=== PATIENT | female | born 1950 | race Caucasian/White ===

== ENCOUNTER 2016-11-23 12:35 | Emergency (ER) | payer OTHER ==
[~2016-11-23] VITALS: Ht 167.6 cm; Wt 120.0 kg
[~2016-11-23 12:35] MED LIST: ALBUAER2 INH; AMIT-203 PO; CITA40TA12 PO; CYCL10TA6 PO; DOCU-94 PO; DSY100 PO; FRS/40 PO; LORA-741 PO; LSN/10125 PO; MONT1TAB3 PO; OXYC-57 PO; PANT40TA PO; POLY335025 PO; PREG100C PO; SENN-61 PO; VTMD PO; ZCR40 PO
[2016-11-23 12:43] VITALS: BP 156/79; PULSE 73; TEMP 36.5; O2SAT 95; Ht 167.6 cm; Wt 120.0 kg
[2016-11-23] MEDS ORDERED: ERGO500037 PO (13:01)
[2016-11-23] MEDS ORDERED: TRAZ50TA35 PO (13:01)
[2016-11-23] MEDS ORDERED: VNTHFA/IN INH (13:01)
--- NOTE | 2016-11-23 14:37 | DIAGNOSTIC IMAGING REPORT ---
LEFT FEMUR 3 VIEWS CLINICAL HISTORY: Left thigh pain of several days' duration. FINDINGS: AP, frog-leg, and lateral views of left femur are correlated with pelvic radiograph dated 12/21/2015. The skeletal structures are osteopenic. There is no radiographic evidence of left femoral fracture. Only minimal arthritic change is seen in the left hip. The visualized left hemipelvis appears intact. A left knee arthroplasty is partially imaged. The soft tissues of the thigh are within normal limits. There is mild atherosclerotic calcification of the femoral artery. IMPRESSION: 1. No acute bony abnormality is seen in the left femur. 2. A left knee arthroplasty is in place. Electronically signed by: Adiel Brantley M.D. 11/23/2016 2:36 PM Dictated Date/Time: 11/23/2016 2:35 PM
--- NOTE | 2016-11-23 14:40 | DIAGNOSTIC IMAGING REPORT ---
ULTRASOUND LEFT LOWER EXTREMITY VENOUS CLINICAL HISTORY: Left thigh pain. COMPARISON STUDY: Bilateral lower extremity venous ultrasound dated 12/20/2015. TECHNIQUE: Real-time, grayscale, and color Doppler sonography of the deep veins of the left lower extremity was performed from the inguinal crease to the calf. Compression and augmentation were utilized. FINDINGS: There is no sonographic evidence of deep venous thrombosis identified in the left lower extremity. The common femoral, superficial femoral, and popliteal veins are patent and normally compressible. The greater saphenous vein and the profunda femoris vein at the junction with the common femoral vein are clear. The visualized calf veins are patent. IMPRESSION: There is no sonographic evidence of deep venous thrombosis identified in the left lower extremity. Electronically signed by: Adiel Brantley M.D. 11/23/2016 2:39 PM Dictated Date/Time: 11/23/2016 2:39 PM
--- NOTE | 2016-11-23 15:17 | EMERGENCY ROOM VISIT NOTE ---
ED Visit Note First contact with patient: 13:22 CHIEF COMPLAINT: Left thigh pain 5 days HISTORY OF PRESENT ILLNESS: Patient is a 58-year-old white female who presents emergency department accompanied by family for evaluation of pain in the anterior left thigh that has been present for about 5 days. She notes pain only with weightbearing. It is located in the anterior left thigh. It does not radiate. She states that occasionally the area looks like it is swollen and is warm to the touch. She denies any increased redness. She states that her leg feels "heavy." She has tried taking Tylenol for her symptoms. She presently rates her pain a 9/10. They have an appointment with her PCP for tomorrow, but the pain worsened today prompting them to come to the emergency department. She is status post bilateral total knee arthroplasty and right total hip arthroplasty. She also has a history of radicular low back pain and peripheral neuropathy. She denies any falls or trauma to the area. She denies any calf pain or swelling bilaterally. No fever or chills. She denies any chest pain. She is chronically short of breath due to her COPD, and states that this improved with use of her inhaler this morning. She's never had symptoms similar to this previously. She does not have a prior history of DVT, does have a history of a PE in 2015 that was attributed to dehydration and prolonged immobilization due to intractable back pain. She was anticoagulated for roughly 6 months, then it was discontinued. She was not found to have an underlying hypercoagulable state. REVIEW OF SYSTEMS: Review of systems as per HPI. All other systems reviewed were negative. 10 systems reviewed. PMH: Electronic medical records are reviewed and summarized as above/below. See Problem List. SOCIAL HISTORY: Patient lives at home by herself. She does not smoke. PHYSICAL EXAM: Vital Signs: Reviewed Nurse's notes. CONSTITUTIONAL: Patient is a morbidly obese 58-year-old white female who is awake and alert and in no acute distress laying on a gurney. HEART: Regular rate and rhythm with soft systolic ejection murmur noted. LUNGS: Slightly diminished throughout, with a few end expiratory wheezes noted. EXTREMITIES: Examination of the left lower extremity does not demonstrate any significant erythema, cyanosis or pitting edema. The area in question in the anterior left thigh does not demonstrate any swelling, discoloration, increased warmth or induration. She is nontender to palpation. She has some slight discomfort over the greater trochanters bilaterally. Well-healed anterior knee scars are noted bilaterally, without knee tenderness, and full knee range of motion. Logroll is negative. Straight leg raise elicits some low back discomfort, but no radicular symptoms. Distal pulses are easily palpable. Sensation to light touch is intact. There are no palpable cords noted. The calves are soft and nontender bilaterally. EMERGENCY DEPARTMENT COURSE: The patient was seen and evaluated as above. Her old records are reviewed. She presents the emergency department for evaluation of isolated pain in the anterior left thigh with weightbearing over the last 5 days. Ultrasound of the left lower extremity was obtained and was negative for DVT. X-ray of the left femur did not demonstrate any acute bony abnormality. Differential diagnosis includes muscle strain, tendinitis, referred pain from the hip or back, DVT, fracture, hardware compromise, superficial thrombophlebitis cellulitis, peripheral neuropathy, among others. The patient and her family were reassured. They were encouraged to follow-up with the PCP as they have scheduled tomorrow. Medication reconciliation: I attest that I have personally reviewed the patient' s current medication list. Blood pressure screening: Patient was found to have a slightly elevated blood pressure due to circumstances. She also has a history of hypertension and is treated. LEFT FEMUR 3 VIEWS CLINICAL HISTORY: Left thigh pain of several days' duration. FINDINGS: AP, frog-leg, and lateral views of left femur are correlated with pelvic radiograph dated 12/21/2015. The skeletal structures are osteopenic. There is no radiographic evidence of left femoral fracture. Only minimal arthritic change is seen in the left hip. The visualized left hemipelvis appears intact. A left knee arthroplasty is partially imaged. The soft tissues of the thigh are within normal limits. There is mild atherosclerotic calcification of the femoral artery. IMPRESSION: 1. No acute bony abnormality is seen in the left femur. 2. A left knee arthroplasty is in place. ULTRASOUND LEFT LOWER EXTREMITY VENOUS CLINICAL HISTORY: Left thigh pain. COMPARISON STUDY: Bilateral lower extremity venous ultrasound dated 12/20/2015. TECHNIQUE: Real-time, grayscale, and color Doppler sonography of the deep veins of the left lower extremity was performed from the inguinal crease to the calf. Compression and augmentation were utilized. FINDINGS: There is no sonographic evidence of deep venous thrombosis identified in the left lower extremity. The common femoral, superficial femoral, and popliteal veins are patent and normally compressible. The greater saphenous vein and the profunda femoris vein at the junction with the common femoral vein are clear. The visualized calf veins are patent. IMPRESSION: There is no sonographic evidence of deep venous thrombosis identified in the left lower extremity. Problem List Medical Problems: (1) Anxiety Status: Chronic (2) Complaints of total body pain Status: Resolved (3) COPD (chronic obstructive pulmonary disease) Status: Chronic (4) Depression Status: Chronic (5) Dyslipidemia Status: Chronic (6) Elevated troponin Status: Resolved (7) GERD (gastroesophageal reflux disease) Status: Chronic (8) Hypertension Nos Status: Chronic (9) Left shoulder pain Status: Resolved (10) Nausea Status: Resolved (11) Neuropathy Status: Chronic (12) Pulmonary embolism Status: Resolved (13) Shortness of breath Status: Resolved (14) Small bowel obstruction Status: Resolved Surgical Problems: (1) H/O tubal ligation Status: Resolved (2) H/O: hysterectomy Status: Resolved (3) Hip Joint Replacement Status Status: Resolved (4) Hx of cholecystectomy Status: Resolved (5) Knee Joint Replacement Status Status: Resolved Current/Historical Medications Scheduled Albuterol Hfa (Ventolin Hfa), 1-2 PUFFS INH Q4 Amitriptyline HCl (Elavil), 1 TAB PO HS Citalopram Hydrobromide (Celexa), 40 MG PO DAILY Docusate Sodium (Colace), 100 MG PO BID Ergocalciferol (Vitamin D 56902 Unit), 50,000 UNIT PO WK Furosemide (Lasix), 40 MG PO DAILY Hctz/Lisinopril (Lisinopril/Hctz 10/12.5 Mg), 1 TAB PO QAM Lorazepam (Ativan), 1 TAB PO TID Montelukast Sodium (Singulair), 1 TAB PO DAILY Pantoprazole (Protonix), 40 MG PO DAILY Pregabalin (Lyrica), 100 MG PO TID Senna (Senokot), 1 TAB PO BID Simvastatin (Simvastatin), 40 MG PO HS Trazodone Hcl (Trazodone), 50 MG PO HS Scheduled PRN Polyethylene Glycol 3350 (Miralax), 17 GM PO DAILY PRN for Constipation Allergies Coded Allergies: Uncoded Nonscreenable Allergen (Verified Allergy, Unknown, requests no narcotics, 11/23/16) Vital Signs Date Time Temp Pulse Resp B/P (MAP) Pulse Ox O2 Delivery O2 Flow Rate FiO2 11/23/16 12:43 36.5 73 20 156/79 95 Room Air Departure Information Impression Primary Impression: Left thigh pain Referrals Rowena Garcia M.D. (PCP) Patient Instructions My [facility] Additional Instructions Ibuprofen(Motrin, Advil) may be used for fever or pain. Use 600mg every six hours as needed. Take with food. Avoid using more than 2400mg in a 24 hour period. Do not use 2400mg per day for more than three consecutive days without physician direction. Prolonged inappropriate use can lead to stomach upset or ulcers. This medication can be taken if you need to drive, work, or perform activities which may be dangerous when taking narcotic pain medication. (AND/OR) Acetaminophen(Tylenol) may be used for fever or pain. Use 1000mg every six hours as needed. Avoid using more than 3000mg in a 24 hour period. This medication can be taken if you need to drive, work, or perform activities which may be dangerous when taking narcotic pain medication. Warm compresses for 20 minutes at a time four times daily for 2-3 days. Use a cane or walker as needed for ambulation. Rest and elevate your injury. Continue current medications. Return to the ER immediately for any numbness, tingling, severe pain, extreme swelling in the extremity or as needed. Follow-up with your primary care physician as you have scheduled tomorrow.
== END 2016-11-23 15:20 | disposition home or self-care (01) ==
LOC: C.EDB 12:36 → C.EDD 15:20
DX: M79.652 Pain in left thigh (principal); J44.9 Chronic obstructive pulmonary disease, unspecified; I10 Essential (primary) hypertension; E78.5 Hyperlipidemia, unspecified; F41.9 Anxiety disorder, unspecified; F32.9 Major depressive disorder, single episode, unspecified; G62.9 Polyneuropathy, unspecified; Z86.711 Personal history of pulmonary embolism; Z98.51 Tubal ligation status; Z90.710 Acquired absence of both cervix and uterus; Z90.49 Acquired absence of other specified parts of digestive tract; Z96.641 Presence of right artificial hip joint; Z96.653 Presence of artificial knee joint, bilateral; Z79.899 Other long term (current) drug therapy

== ENCOUNTER 2016-12-18 12:54 | Emergency (ER) | payer OTHER ==
[~2016-12-18] VITALS: Ht 167.6 cm; Wt 119.2 kg
[~2016-12-18 12:54] MED LIST changes: -ALBUAER2 INH; -CYCL10TA6 PO; -DSY100 PO; +ERGO500037 PO; -OXYC-57 PO; +TRAZ50TA35 PO; +VNTHFA/IN INH; -VTMD PO
[2016-12-18 13:00] VITALS: TEMP 36.6; Ht 167.6 cm; Wt 119.2 kg
[2016-12-18] MEDS ORDERED: FLX/5 PO (13:22)
[2016-12-18] MEDS ORDERED: KETOROLAC TROMETHAMINE 60 MG/2 ML VIAL IM STA (13:25)
--- NOTE | 2016-12-18 16:50 | DIAGNOSTIC IMAGING REPORT ---
CT OF THE LEFT HIP AND THIGH WITHOUT CONTRAST CLINICAL HISTORY: Worsening left thigh and hip pain. History of bursitis. COMPARISON STUDY: Left femur radiographs November 23, 2016. TECHNIQUE: Axial images of the left hip and femur/thigh were obtained without IV contrast. Sagittal and coronal reconstructions were viewed. FINDINGS: Visualized portions of the lower abdomen and pelvis demonstrate extensive sigmoid diverticulosis without evidence for acute diverticulitis. A right hip arthroplasty and left knee arthroplasty are noted. Alignment of the left hip is anatomic. There is no evidence for avascular necrosis of the left femoral head. There is marked atrophy of portions of the left quadriceps muscle. No mass or fluid collection is identified within the left thigh. No fracture or osseous lesion is identified within the left femur. No significant osseous abnormality is identified within visualized portions of the pelvis. There is mild osteoarthritis of the left hip. IMPRESSION: 1. No acute abnormality within the left hip or thigh by CT. 2. No left femoral fracture. 3. Status post total left knee arthroplasty. No periprosthetic fracture or lucency. 4. Moderate to marked atrophy within portions of the left quadriceps muscle. Electronically signed by: Allen Pham M.D. 12/18/2016 4:49 PM Dictated Date/Time: 12/18/2016 4:43 PM
--- NOTE | 2016-12-18 17:09 | EMERGENCY ROOM VISIT NOTE ---
ED Visit Note First contact with patient: 13:12 The patient was seen and examined with Chrissy Salas PA-C. I agree with the history, physical and findings. Please see the note for disposition and details.
[2016-12-18] MEDS ORDERED: DICL75TA2 PO (17:12)
--- NOTE | 2016-12-18 17:12 | EMERGENCY ROOM VISIT NOTE ---
History First contact with patient: 13:12 Chief Complaint: HIP PAIN Stated Complaint: HIP PAIN History of Present Illness The patient is a 66 year old female who presents to the Emergency Room with complaints of persistent and worsening left hip and thigh pain. The patient states that her pain started one month ago. She denies any known injury. She states the pain is worse with ambulation. The patient was seen here initially on December 03 for the same symptoms. She had x-rays done of the left hip which revealed minimal arthritis any venous Doppler which did not reveal any evidence of DVT. She states she then went to Dr. Brock, orthopedics who injected her hip with steroids and she was told she had bursitis. This was on December 09. The patient states she got no relief and then she went to her family doctor, Dr. Zhong on December 14. She states that she prescribed her muscle relaxers but that is not helping. She is taking Tylenol at home without any relief. The patient states that she also had x-rays of her back. She denies any numbness and tingling radiating down her legs. The patient denies a loss of bowel or bladder control. The patient denies any saddle anesthesia. Review of Systems 10 system review was performed and was negative unless stated otherwise history of present illness. Past Medical/Surgical History Medical Problems: (1) Anxiety (2) Complaints of total body pain (3) COPD (chronic obstructive pulmonary disease) (4) Depression (5) Dyslipidemia (6) Elevated troponin (7) GERD (gastroesophageal reflux disease) (8) Hypertension Nos (9) Left shoulder pain (10) Nausea (11) Neuropathy (12) Pulmonary embolism (13) Shortness of breath (14) Small bowel obstruction Surgical Problems: (1) H/O tubal ligation (2) H/O: hysterectomy (3) Hip Joint Replacement Status (4) Hx of cholecystectomy (5) Knee Joint Replacement Status Family History FH: cancer Social History Smoking Status: Former Smoker Alcohol Use: none Drug Use: none Marital Status: single Housing Status: lives alone Occupation Status: unemployed Current/Historical Medications Scheduled Albuterol Hfa (Ventolin Hfa), 1-2 PUFFS INH Q4 Amitriptyline HCl (Elavil), 1 TAB PO HS Citalopram Hydrobromide (Celexa), 40 MG PO DAILY Cyclobenzaprine HCl (Cyclobenzaprine HCl), 5 MG PO BID Docusate Sodium (Colace), 100 MG PO BID Ergocalciferol (Vitamin D 77199 Unit), 50,000 UNIT PO WK Furosemide (Lasix), 40 MG PO DAILY Hctz/Lisinopril (Lisinopril/Hctz 10/12.5 Mg), 1 TAB PO QAM Lorazepam (Ativan), 1 TAB PO TID Montelukast Sodium (Singulair), 1 TAB PO DAILY Pantoprazole (Protonix), 40 MG PO DAILY Pregabalin (Lyrica), 100 MG PO TID Senna (Senokot), 1 TAB PO BID Simvastatin (Simvastatin), 40 MG PO HS Trazodone Hcl (Trazodone), 50 MG PO HS Scheduled PRN Polyethylene Glycol 3350 (Miralax), 17 GM PO DAILY PRN for Constipation Physical Exam Vital Signs Date Time Temp Pulse Resp B/P (MAP) Pulse Ox O2 Delivery O2 Flow Rate FiO2 12/18/16 14:44 63 10 96 12/18/16 14:39 65 14 95 12/18/16 14:34 62 16 95 12/18/16 14:31 147/72 12/18/16 14:29 61 10 97 12/18/16 14:24 60 12 99 12/18/16 14:19 62 12 96 12/18/16 14:14 61 11 97 12/18/16 14:09 60 10 98 12/18/16 14:04 59 9 98 12/18/16 14:01 169/72 12/18/16 13:59 59 7 98 12/18/16 13:54 61 10 97 12/18/16 13:49 65 11 98 12/18/16 13:44 65 12 97 12/18/16 13:39 63 10 98 12/18/16 13:34 63 12 98 12/18/16 13:31 179/78 12/18/16 13:29 66 10 98 12/18/16 13:24 64 13 96 12/18/16 13:19 67 15 98 12/18/16 13:14 63 12 97 12/18/16 13:11 66 12/18/16 13:09 71 16 95 12/18/16 13:01 186/75 12/18/16 13:00 36.6 64 18 186/75 98 Room Air Physical Exam GENERAL: 66 year-old obese white female appears in no acute distress. MENTAL Status: Alert and oriented 3. LUNGS: Clear auscultation without wheezes rales or rhonchi. CARDIAC: Regular rate and rhythm without murmur. Pulses is full and equal throughout. LUMBAR SPINE: No gross bony deformity noted. The patient is nontender to palpation over the spinous processes in the paravertebral region. LEFT HIP/THIGH: No gross bony deformity noted. No erythema or edema noted. The patient is tender to palpation over the greater trochanter and slightly inferior to the greater trochanter. The patient has full range of motion of the left hip with pain elicited with abduction and abduction. NEURO: Negative straight leg raise bilaterally. Medical Decision & Procedures ER Provider Diagnostic Interpretation: CT OF THE LEFT HIP AND THIGH WITHOUT CONTRAST CLINICAL HISTORY: Worsening left thigh and hip pain. History of bursitis. COMPARISON STUDY: Left femur radiographs November 23, 2016. TECHNIQUE: Axial images of the left hip and femur/thigh were obtained without IV contrast. Sagittal and coronal reconstructions were viewed. FINDINGS: Visualized portions of the lower abdomen and pelvis demonstrate extensive sigmoid diverticulosis without evidence for acute diverticulitis. A right hip arthroplasty and left knee arthroplasty are noted. Alignment of the left hip is anatomic. There is no evidence for avascular necrosis of the left femoral head. There is marked atrophy of portions of the left quadriceps muscle. No mass or fluid collection is identified within the left thigh. No fracture or osseous lesion is identified within the left femur. No significant osseous abnormality is identified within visualized portions of the pelvis. There is mild osteoarthritis of the left hip. IMPRESSION: 1. No acute abnormality within the left hip or thigh by CT. 2. No left femoral fracture. 3. Status post total left knee arthroplasty. No periprosthetic fracture or lucency. 4. Moderate to marked atrophy within portions of the left quadriceps muscle. Electronically signed by: Allen Pham M.D. 12/18/2016 4:49 PM Dictated Date/Time: 12/18/2016 4:43 PM Medications Administered Medications (Trade) Dose Ordered Sig/Isak Route Start Time Stop Time Status Last Admin Dose Admin Ketorolac Tromethamine (Toradol Inj) 60 mg NOW STAT IM 12/18/16 13:25 12/18/16 13:27 DC 12/18/16 13:50 60 MG ED Course The patient was evaluated. The patient's EMR medication list were reviewed. The patient was given Toradol [address] of the left hip and thigh was ordered and interpreted by the radiologist as above without any acute bony abnormality noted but there was moderate atrophy of the foot or sepsis tendon.. The patient is also on a no narcotic list in the emergency room. The patient also stated that she had a problem with opioids in the past and does not want any opioids. The patient was informed of the CT findings. She was reevaluated and stated that she was feeling better. I discussed in great length with the patient about her CT findings that she needs to most likely start physical therapy. At that point her son stated that she already has a prescription to start physical therapy but she has not gone yet. The patient was independently evaluated byDr. Raza who agrees with treatment plan. The patient was discharged home in stable condition. Medical Decision Differential diagnosis include bursitis, fracture, muscular strain Impression Primary Impression: Atrophy of quadriceps femoris muscle Additional Impression: Hip pain, left Departure Information Dispostion Home / Self-Care Condition GOOD Prescriptions Diclofenac Sodium (VOLTAREN) 75 Mg Tab 75 MG PO BID for 10 Days, #20 TAB Prov: Bhakti Salas PA-C 12/18/16 Referrals Rowena Garcia M.D. (PCP) Forms HOME CARE DOCUMENTATION FORM, IMPORTANT VISIT INFORMATION, WORK / SCHOOL INSTRUCTIONS Patient Instructions My [facility] Additional Instructions Take Voltaren as prescribed with food. Do not take any additional ibuprofen, Aleve. Call Dr. Brock on Tuesday to let him know that you had a CAT scan done in the ER today and to cancel the CAT scan at [facility] on Tuesday. Also get a follow-up appointment as soon as possible for reevaluation. Also recommend start physical therapy as soon as possible. Continue using walker for ambulation. Problem Qualifiers
[2016-12-18 17:59] VITALS: BP 132/88; PULSE 72; O2SAT 98
== END 2016-12-18 17:45 | disposition home or self-care (01) ==
LOC: EDBD 12:54 → C.EDB 12:55
DX: M62.552 Muscle wasting and atrophy, not elsewhere classified, left thigh (principal); M25.552 Pain in left hip; F41.9 Anxiety disorder, unspecified; J44.9 Chronic obstructive pulmonary disease, unspecified; F32.9 Major depressive disorder, single episode, unspecified; E78.5 Hyperlipidemia, unspecified; K21.9 Gastro-esophageal reflux disease without esophagitis; I10 Essential (primary) hypertension; Z86.711 Personal history of pulmonary embolism; Z80.9 Family history of malignant neoplasm, unspecified; Z87.891 Personal history of nicotine dependence; Z79.899 Other long term (current) drug therapy

== ENCOUNTER 2018-10-07 07:20 | Inpatient (IN) ==
--- OUTSIDE RECORDS SUMMARY | 2018-10-07 07:23 | External Medical Summary | Continuity of Care Document ---
:1950 Author Name Larry Thomas Address Unavailable Unavailable , Care Team Providers Name Role Phone Unavailable Unavailable Unavailable Yudith Thomas Unavailable [email or web address] Unavailable Unavailable Unavailable Unavailable Unavailable Problems Buzzing Sounds In The Ears Symptoms Involving Cognition (799.59) Emphysema (492.8) Osteoarthritis (715.90) Night sweats (780.8) (R61) Murmur (785.2) (R01.1) Carotid bruit (785.9) (R09.89) Hearing loss (389.9) (H91.90) Peptic ulcer (533.90) (K27.9) Esophageal reflux (530.81) (K21.9) Insomnia (780.52) (G47.00) Influenza vaccine needed (V04.81) (Z23) Lumbago (724.2) (M54.5) Urinary frequency (788.41) (R35.0) Dyslipidemia (272.4) (E78.5) Burning pain (780.96) (R52) Anemia (285.9) (D64.9) Anxiety (300.00) (F41.9) Bunion (727.1) (M21.619) Depression (311) (F32.9) Fibromyalgia (729.1) (M79.7) Headache (784.0) (R51) Hyperglycemia (790.29) (R73.9) Hyperlipidemia (272.4) (E78.5) Peripheral neuropathy (356.9) (G62.9) Tinnitus of both ears (388.30) (H93.13) Constipation (564.00) (K59.00) Proctalgia (569.42) (K62.89) Dehydration (276.51) (E86.0) Compliance with medication regimen (V49.89) (Z91.89) Visit for monitoring Lovenox therapy (V58.83) (Z51.81) On bridging treatment with lovenox (V58.61) (Z79.01) Shortness of breath (786.05) (R06.02) Chronic pain (338.29) (G89.29) Backache (724.5) (M54.9) Buttock pain (729.1) (M79.18) Osteopenia (733.90) (M85.80) Multiple pulmonary nodules (793.19) (R91.8) Chronic obstructive pulmonary disease (496) (J44.9) Pulmonary embolism (415.19) (I26.99) Back pain, chronic (724.5) (M54.9) Aortic insufficiency (424.1) (I35.1) Nausea (787.02) (R11.0) Carotid artery stenosis (433.10) (I65.29) Abnormal electrocardiogram (794.31) (R94.31) Functional Status Hearing loss Allergies and Adverse Reactions No Known Drug Allergies (Allergy) Medications Colace 100 MG Oral Capsule; TAKE 1 CAPSULE TWICE DAILY NEEDED. Martha Tan Start: 02-Jan-2014 Quantity: 60 Refills: 5 Warfarin Sodium 6 MG Oral Tablet; TAKE DIRECTED. Martha Abreu Start: 05-Sep-2014 Quantity: 30 Refills: 3 Warfarin Sodium 5 MG Oral Tablet; TAKE DIRECTED. Martha Arbeu Start: 02-Sep-2014 Quantity: 30 Refills: 3 Ventolin HFA 108 (90 Base) MCG/ACT Inhal ation Aerosol Solution; INHALE 1 TO 2 PUFFS EVERY 4 TO 6 HOURS NEEDED. Martha Zurita Start: 22-Jun-2012 Quantity: 3 Refills: 2 Omeprazole 40 MG Oral Capsule Delayed Release; TAKE 1 CAPSULE TWICE DAILY. Martha Zurita Start: 15-Jun-2012 Quantity: 60 Refills: 5 Simvastatin 40 MG Oral Tablet; TAKE 1 TABLET DAILY AT BEDTIME. Martha Tan Start: 15-Jun-2012 Quantity: 30 Refills: 5 Montelukast Sodium 10 MG Oral Tablet; TAKE 1 TABLET AT BEDTIME. Martha Tan Start: 15-Jun-2012 Quantity: 30 Refills: 5 Warfarin Sodium 2 MG Oral Tablet; take 2 tablets on and Tuesday Martha Zurita Start: 17-Jul-2014 Quantity: 10 Refills: 5 Warfarin Sodium 5 MG Oral Tablet; takes 5 days Martha Ng Start: 17-Jul-2014 Quantity: 20 Refills: 5 Citalopram Hydrobromide 20 MG Oral Tablet; TAKE 1 TABLET SHAHAB TIAN M.D. Start: 11-Apr-2014 Refills: 0 Ondansetron HCl - 4 MG Oral Tablet; take 1 tab as need ed for nausea Martha Tan Start: 28-Feb-2014 Quantity: 30 Refills: 0 traZODone HCl - 100 MG Oral Tablet; TAKE ONE TABLET BY MOUTH AT BEDTIME Martha Zurita Start: 19-Jan-2013 Quantity: 30 Refills: 5 LORazepam 0.5 MG Oral Tablet; Take 1 tablet twice quinton y Martha Zurita Start: 24-May-2013 Quantity: 60 Refills: 0 OxyCONTIN Martha CRABTREE Refills: 0 Procedures History of Tubal Ligation Status: Comple larry History of Hysterectomy Status: Complete d History of Hip Surgery Status: Completed History of Knee Surgery Status: Complete d History of Complete Colonoscopy Status: Completed Immunizations Pneumococcal polysaccharide vaccine, 23 valent On: 17-Nov-19 08 Influenza On: 15-Jun-2012 11:19 Lot #: [id number], [employer] Influenza On: 15-Feb-2013 14:41 Lot #: [id number], [employer] Fluzone High-Dose Intramuscular Suspension On: 07-Mar-2014 1 5:23 Lot #: [id number], [employer] Family History Unknown Family Member Family history of Brain Cancer (V16.8) Status: Active C omments: Family History Father Family history of Gastric Neoplasm Status: Active Brother Family history of Pulmonary Disease Status: Active Social History - Smoking Status Former smoker Plan of Treatment Planned Observations Planned Goals not documented Results No Known Results Results not documented
[2018-10-07] MEDS ORDERED: dilTIAZem HCl 5 MG/ML 5 ML VIAL IV STA (07:35)
[2018-10-07] MEDS ORDERED: methylPREDNISolone 125 MG/2 ML VIAL IV STA (07:37)
[2018-10-07] MEDS ORDERED: dilTIAZem HCl 125 MG in DEXTROSE 5% 100 ML IV SCH (07:45)
[2018-10-07 07:47] LABS: Basophils # (auto) 0.03 K/uL (0-0.2); Basophils % (auto) 0.5 %; Eosinophils # (auto) 0.09 K/uL (0-0.5); Eosinophils % (auto) 1.5 %; Hemoglobin 13.6 g/dL (12.0-16.0); Immature Granulocytes # (auto) 0.01 K/uL (0.00-0.02); Immature Granulocytes % (auto) 0.2 %; Lymphocytes # (auto) 2.41 K/uL (1.2-3.4); Lymphocytes % (auto) 39.5 %; Mean Corpuscular Hgb Conc 33.2 g/dL (32-36); Mean Corpuscular Volume 98.6 fL (80-100); Mean Platelet Volume 10.4 fL (7.4-10.4); Monocytes # (auto) 0.74 K/uL (0.11-0.59); Monocytes % (auto) 12.1 %; Neutrophils # (auto) 2.82 K/uL (1.4-6.5); Neutrophils % (auto) 46.2 %; Platelet Count 134 K/uL (130-400); RDW Coefficient of Variation 12.8 % (11.5-14.5); RDW Standard Deviation 46.1 fL (36.4-46.3); Red Blood Count 4.16 M/uL (4.2-5.4)
[2018-10-07 08:03] LABS: Albumin Level 3.2 gm/dl (3.4-5.0); BUN Creatinine Ratio 13.2 (10-20); Calcium 8.8 mg/dl (8.5-10.1); Creatinine Clr Calc Pharmacy 59.9 ml/min; Est GFR (African American) 57.6; Est GFR (Non-African American) 49.7; Potassium 3.9 mmol/L (3.5-5.1)
[2018-10-07 08:10] LABS: Albumin Globulin Ratio 0.9 (0.9-2); Bilirubin,Total 0.3 mg/dl (0.2-1); Globulin 3.4 gm/dl (2.5-4.0); Total Protein 6.6 gm/dl (6.4-8.2); Troponin I 0.09 ng/ml (0-0.045)
--- NOTE | 2018-10-07 08:48 | XRay Report ---
XR chest 1V portable HISTORY: Atypical Chest Pain COMPARISON: Chest 02/23/2016. FINDINGS: The lungs are clear. Cardiac silhouette is normal in size. No pleural effusions. No pneumot horax. IMPRESSION: No acute process. Electronically signed by: Rob Hallman M.D. 10/07/2018 8:45 AM
[2018-10-07] MEDS ORDERED: cefTRIAXone SODIUM 1,000 MG/50 ML BAG IV STA (08:51)
[2018-10-07] MEDS ORDERED: AZITHROMYCIN 500 MG in DEXTROSE 5% 250 ML IV STA (08:51)
--- NOTE | 2018-10-07 08:57 | Emergency Department Note ---
Entered by Katia Bullock acting as a scribe for History of Present Illness General Chief complaint: Shortness of Breath/Dyspnea Time Seen by Provider: 10/07/18 07:26 Source: patient and EMS Mode of arrival: EMS History of Present Illness Onset (ago): day(s) 5 Location: chest Pain Consistency: + other (persistent) Quality: + other (shortness of breath) Relieved By: + medication (Duoneb) Associated symptoms: + cough (non-productive) and + headaches; no chest pain The patient is a 68 year old female that is presenting to the Emergency Room with complaints of persistent shortness of breath that started 5 days ago. The patient reports that she has been wearing O2 since her symptoms started. She notes that she wears 2L of O2 at home as needed. She states she has an associated non-productive cough. She denies any chest pain but notes that she has a slight headache. The patient notes that she has a history of COPD and an unspecified heart condition. She states that she unsure what the condition is but does not believe it is atrial fibrillation or flutter. She states that she has not had to wear her O2 for a while prior to the start of her current symp toms. She denies taking any blood thinners. She notes that she takes Lisinopril. The patient was brought to the Emergency Room via EMS who states that the patient had a heart rate of 130 bpm when she was picked. EMS notes that the patients symptoms improved slightly with a Duoneb treatment en route. The patients heart rate was 144 bpm on exam. Home Medications Home Medications Medication Instructions Recorded Confirmed Type albuterol sulfate [Ventolin HFA] 1 - 2 puff INHALATION QID PRN 10/07/18 10/07/18 History amitriptyline 25 mg PO HS 10/07/18 10/07/18 History citalopram [Celexa] 30 mg PO QAM 10/07/18 10/07/18 History docusate sodium 100 mg PO BID 10/07/18 10/07/18 History ergocalciferol (vitamin D2) 50,000 unit PO WK 10/07/18 10/07/18 History fluticasone propionate 1 spray INTRANASAL DAILY PRN 10/07/18 10/07/18 History furosemide [Lasix] 20 mg PO QAM 10/07/18 10/07/18 History lisinopril 5 mg PO QAM 10/07/18 10/07/18 History lorazepam [Ativan] 0.5 mg PO TID 10/07/18 10/07/18 History montelukast [Singulair] 10 mg PO PM 10/07/18 10/07/18 History pantoprazole 40 mg PO QAM 10/07/18 10/07/18 History polyethylene glycol 3350 [Miralax] 17 g PO DAILY PRN 10/07/18 10/07/18 History pregabalin [Lyrica] 125 mg PO TID 10/07/18 10/07/18 History pregabalin [Lyrica] 125 mg PO TID 10/07/18 10/07/18 History sennosides [Senokot] 8.6 mg PO BID PRN 10/07/18 10/07/18 History simvastatin [Zocor] 40 mg PO HS 10/07/18 10/07/18 History trazodone 50 mg PO HS 10/07/18 10/07/18 History Allergies Allergy/AdvReac Type Severity Reaction Status Date / Time Uncoded Nonscreenable Allergy Unknown requests Uncoded 10/07/18 07:59 Allergen no narcotics Past Med/Surg History Medical History Hypertension (Chronic) COPD (chronic obstructive pulmonary disease) (Chronic) Elevated troponin (Resolved) Family History Other Family history non-contributory Social History marital status: / Current Living Situation: Alone current occupational status: retired Feels Safe at Home: Yes Smoking Status: Former smoker Review of Systems See HPI for pertinent positives & negatives. and A total of 10 systems reviewed and were otherwise negative Physical Exam Vital Signs Vital Signs - 24 hr 10/07/18 07:10 10/07/18 07:35 10/07/18 09:10 Temperature 36.9 C Temperature Source Oral Sepsis Recent Fever Within 48 Hours No Sepsis Action Taken by Nursing No Action Required Pulse Rate 150 H Pulse Rate [Right Finger] 123 H Pulse Rhythm Irregular Pulse Strength Normal Respiratory Rate 20 22 Respiratory Effort / Characteristics Short of Breath Respiratory Depth Shallow Respiratory Pattern Regular Blood Pressure 135/77 Blood Pressure [Right Arm] 150/97 H Blood Pressure Mean 96 Blood Pressure Mean [Right Arm] 114 Blood Pressure Position Sitting Pulse Oximetry 4 L 93 98 Oxygen Delivery Method Nasal Cannula Nasal Cannula Nasal Cannula Oxygen Flow Rate 4 4 2 10/07/18 09:13 Temperature Temperature Source Sepsis Recent Fever Within 48 Hours Sepsis Action Taken by Nursing Pulse Rate Pulse Rate [Right Finger] 123 H Pulse Rhythm Pulse Strength Respiratory Rate 16 Respiratory Effort / Characteristics Non-Labored Spontaneous Respiratory Depth Respiratory Pattern Blood Pressure Blood Pressure [Right Arm] Blood Pressure Mean Blood Pressure Mean [Right Arm] Blood Pressure Position Pulse Oximetry 93 Oxygen Delivery Method Nasal Cannula Oxygen Flow Rate 4 CONSTITUTIONAL/VITAL SIGNS: Reviewed / noted above. GENERAL: Non-toxic in appearance. INTEGUMENTARY: Warm, dry, and [place]. HEAD: Normocephalic. EYES: without scleral icterus or trauma. ENT/OROPHARYNX: clear and moist. LYMPHADENOPATHY/NECK: Is supple without lymphadenopathy or meningismus. RESPIRATORY: Diminished breath sounds bilatererally with inspiratory and expiratory wheezing. Occasional non-productive cough. CARDIOVASCULAR: Rapid regular heart rate. GI/ABDOMEN: Soft and nontender. No organomegaly or pulsatile mass. No rebound or guarding. Normal bowel sounds. EXTREMITIES: Warm and well perfused. Bilateral pedal edema. BACK: No CVA tenderness. NEUROLOGICAL: Intact without focal deficits. PSYCHIATRIC: normal affect. MUSCULOSKELETAL: Normally developed with good muscle tone. Course 0732:The patient was evaluated in room B02. A complete history and physical examination was performed. 0859: I updated the patient on her current lab and imaging results. She continues to have diffuse wheezing and an additional Duoneb treatment was ordered. 0917: I discussed the patient's case with Ari Leblanc, who will evaluate the patient for further management and care. 0939: Upon reevaluation, the patient is resting comfortably. I discussed laboratory and radiographic results with the patient. She verbalized agreement of the treatment plan. The patient will be evaluated for further management and care. Consultations Consultation #1: I discussed the patient's case with Ari Leblanc, who will evaluate the patient for further management and care. Time: 09:17 Administered Medications Diltiazem HCl 125 mg/ Dextrose 125 mls @ 10 mls/hr IV .[id number] [facility]; Protocol Stop: 11/06/18 07:44 Last Admin: 10/07/18 09:21 Dose: Not Given Documented by: [id number] Azithromycin 500 mg/ Dextrose 255 mls @ 127.5 mls/hr IV NOW STA Stop: 10/07/18 10:50 Last Admin: 10/07/18 09:37 Dose: 127.5 mls/hr Documented by: [id number] Discontinued Medications Albuterol (Duoneb) 3 ml NEB NOW STA Stop: 10/07/18 09:00 Last Admin: 10/07/18 09:13 Dose: 3 ml Documented by: [id number] Diltiazem HCl (Cardizem) 20 mg IV NOW STA Stop: 10/07/18 07:36 Last Admin: 10/07/18 07:45 Dose: 20 mg Documented by: [id number] Cosigned by: [id number] Diltiazem HCl (Cardizem) 30 mg PO NOW ONE Stop: 10/07/18 09:00 Last Admin: 10/07/18 09:21 Dose: 30 mg Documented by: [id number] Ceftriaxone Sodium (Rocephin) 1,000 mg in 50 mls @ 100 mls/hr IV NOW STA Stop: 10/07/18 09:20 Last Admin: 10/07/18 09:21 Dose: 100 mls/hr Documented by: [id number] Methylprednisolone (Solumedrol) 125 mg IV NOW STA Stop: 10/07/18 07:38 Last Admin: 10/07/18 07:44 Dose: 125 mg Documented by: [id number] Medical Decision Making Differential Diagnosis Differential diagnosis: Etiologies such as infections, reactive airway disease, pneumonia, pneumothorax, COPD, CHF, cardiac ischemia, pulmonary embolism, musculoskeletal, gastrointestinal, as well as others were entertained. Medical Records Attestation: I reviewed the patient's medical records. Home Medications Current Medication List: was personally reviewed by me Laboratory Data Attestation: I reviewed the patient's lab results. Result diagrams: 10/07/18 07:35 10/07/18 07:35 Lab Results 10/07/18 10/07/18 Range/Units 07:35 07:35 WBC 6.10 (4.8-10.8) K/uL RBC 4.16 L (4.2-5.4) M/uL Hgb 13.6 (12.0-16.0) g/dL Hct 41.0 (37-47) % MCV 98.6 (80-100) fL MCH 32.7 (25-34) pg MCHC 33.2 (32-36) g/dL RDW Std Deviation 46.1 (36.4-46.3) fL RDW Coeff of Leo 12.8 (11.5-14.5) % Plt Count 134 (130-400) K/uL MPV 10.4 (7.4-10.4) fL Immature Gran % (Auto) 0.2 % Neut % (Auto) 46.2 % Lymph % (Auto) 39.5 % [place] % (Auto) 12.1 % Eos % (Auto) 1.5 % Baso % (Auto) 0.5 % Immature Gran # (Auto) 0.01 (0.00-0.02) K/uL Neut # (Auto) 2.82 (1.4-6.5) K/uL Lymph # (Auto) 2.41 (1.2-3.4) K/uL [place] # (Auto) 0.74 H (0.11-0.59) K/uL Eos # (Auto) 0.09 (0-0.5) K/uL Baso # (Auto) 0.03 (0-0.2) K/uL Sodium 138 (136-145) mmol/L Potassium 3.9 (3.5-5.1) mmol/L Chloride 102 (98-107) mmol/L Carbon Dioxide 29 (21-32) mmol/L Anion Gap 6.0 (3-11) BUN 15 (7-18) mg/dl Creatinine 1.12 (0.6-1.2) mg/dl Est Cr Clr Drug Dosing 59.9 ml/min Est GFR ( Amer) 57.6 Est GFR (Non-Af Amer) 49.7 BUN/Creatinine Ratio 13.2 (10-20) Glucose 122 H (70-99) mg/dl Calcium 8.8 (8.5-10.1) mg/dl Total Bilirubin 0.3 (0.2-1) mg/dl AST 18 (15-37) U/L ALT 20 (12-78) U/L Alkaline Phosphatase 83 (45-117) U/L Troponin I 0.090 H* (0-0.045) ng/ml Total Protein 6.6 (6.4-8.2) gm/dl Albumin 3.2 L (3.4-5.0) gm/dl Globulin 3.4 (2.5-4.0) gm/dl Albumin/Globulin Ratio 0.9 (0.9-2) Imaging Data Radiologist's Impression: Radiology results as stated below per my review and the radiologist's interpretation: XR chest 1V portable HISTORY: Atypical Chest Pain COMPARISON: Chest 02/23/2016. FINDINGS: The lungs are clear. Cardiac silhouette is normal in size. No pleural effusions. No pneumothorax. IMPRESSION: No acute process. Electronically signed by: Rob Hallman M.D. 10/07/2018 8:45 AM ECG Data Attestation: I personally reviewed and interpreted this ECG as follows: Indication: SOB/dyspnea Rate (beats per minute): 150 Rhythm: atrial flutter Findings: no PAC, no PVC, no ST elevation and no ectopy Additional Comments: EKG 2: sinus tachycardia at a rate of [address] elevation or ectopy. Rate has decreased from 1st EKG. Blood Pressure Blood Pressure Findings: Normal blood pressure MDM Narrative This is a 68-year-old female who presents to the ED with a chief complaint of shortness of breath. The patient reports a nonproductive cough for the past wee k. She states that her breathing has become increasingly difficult over the past 5 or 6 days. She states that she has home oxygen but has not used it for some time. She started using it in the past 24 hours because of shortness of breath. She does report a history of COPD. She also reports hypertension. Her exam revealed that she has bilateral diminished breath sounds with diffuse wheezing. She was provided with a DuoNeb treatment and and albuterol treatment by EMS. She was given here IV Solu-Medrol as well as IV Cardizem bolus because of a tachycardic heart rhythm that was felt to be a flutter but may likely have been SVT. The patient was given 20 mg of IV Cardizem and her heart rate slowed and appears to be a sinus rhythm on repeat twelve-lead EKG. The patient's CBC and chemistry panel was unremarkable. Her troponin was elevated to 0.09. She was treated with IV Zithromax and IV Rocephin. She will be seen by the hospitalist for further inpatient evaluation and care. The patient's heart rate did increase during the patient's stay. She was given p.o. Cardizem to help co ntrol her heart rate as she did have elevated cardiac enzymes and she has diffuse wheezing. She was given an additional DuoNeb treatment. Her elevated troponin might be rate related and beta-blockers would be potentially not beneficial with the patient's wheezing and lung issues. Impression & Plan Acute exacerbation of chronic obstructive pulmonary disease (COPD), Acute bronchitis, Non-ST elevation [place] (NSTEMI), Sustained SVT Discharge Plan Visit Data Chief Complaint: Shortness of Breath/Dyspnea Other Complaint: Congestion Cough ED Provider: Devan Junior Discharge Problem: Acute exacerbation of chronic obstructive pulmonary disease (COPD), Acute bronchitis, Non-ST elevation [place] (NSTEMI), Sustained SVT Patient Disposition: Being Evaluated by Hospitalist Forms Stand Alone Forms: [facility] [place] Prescriptions Prescriptions: No Action sennosides [Senokot] 8.6 mg Tablet 8.6 mg PO BID PRN (Reason: Constipation) RF: 0 trazodone 50 mg Tablet 50 mg PO HS RF: 0 polyethylene glycol 3350 [Miralax] 17 gram Powder In Packet 17 g PO DAILY PRN (Reason: Constipation) RF: 0 simvastatin [Zocor] 40 mg Tablet 40 mg PO HS RF: 0 citalopram [Celexa] 20 mg tablet 30 mg PO QAM RF: 0 amitriptyline 25 mg tablet 25 mg PO HS RF: 0 lorazepam [Ativan] 0.5 mg tablet 0.5 mg PO TID RF: 0 pantoprazole 40 mg Tablet,Delayed Release (Dr/Ec) 40 mg PO QAM RF: 0 montelukast [Singulair] 10 mg Tablet 10 mg PO PM RF: 0 lisinopril 5 mg Tablet 5 mg PO QAM RF: 0 furosemide [Lasix] 20 mg Tablet 20 mg PO QAM RF: 0 ergocalciferol (vitamin D2) 50,000 unit Capsule 50,000 unit PO WK RF: 0 albuterol sulfate [Ventolin HFA] 90 mcg/actuation Hfa Aerosol Inhaler 1 - 2 puff INHALATION QID PRN (Reason: Shortness Of Breath) RF: 0 fluticasone propionate 50 mcg/actuation [place],Suspension 1 spray INTRANASAL DAILY PRN (Reason: Allergy Symptoms) RF: 0 docusate sodium 100 mg Tablet 100 mg PO BID RF: 0 Lyrica 25 mg Capsule 125 mg PO TID RF: 0 Lyrica 100 mg Capsule 125 mg PO TID RF: 0 Referrals Referrals: Rowena Garcia MD [Primary Care Provider] - Discharge Problem: Acute bronchitis Qualifiers: Bronchitis organism: unspecified organism Qualified Code(s): J20.9 - Acute bronchitis, unspecified The scribe's documentation has been prepared under my direction and personally reviewed by me in its entirety. I confirm that the note above accurately reflects all work, treatment, procedures, and medical decision making performed by me.
[2018-10-07] MEDS ORDERED: ALBUT/IPRATROP 3MG/0.5MG NEB 3 ML VIAL NEB STA (08:59)
[2018-10-07] MEDS ORDERED: dilTIAZem HCL 30 MG TAB PO ONE (08:59)
[2018-10-07] MEDS ORDERED: ONDANSETRON INJ 2 MG/ML 2 ML VIAL IV PRN (10:06)
--- NOTE | 2018-10-07 10:26 | History & Physical Report ---
Date of Service October 07, 2018 Assessment & Plan (1) Acute exacerbation of chronic obstructive pulmonary disease (COPD): Has been complaining of shortness of breath with chest tightness for the last 1 week Likely has acute exacerbation secondary to acute bronchitis We will check d-dimer and if elevated, will get CTA to rule out pulmonary embolism with a history of PE Received intravenous Solu-Medrol and will give nebulized bronchodilator Doxycycline orally. Received 1 dose of azithromycin in the ER Will admit to medical telemetry unit D-dimer was elevated to more than 1000 CTA did not show any pulmonary embolism but it did show possible pneumonitis/pneumonia involving the lower lung We will continue with oral doxycycline Incentive spirometry Present on Admission?: Yes (2) Diastolic CHF due to valvular disease: No evidence of any acute failure on chest x-ray We will continue with oral furosemide (3) CKD (chronic kidney disease) stage 3, GFR 30-59 ml/min: History of chronic kidney disease Seems to be at her baseline (4) Depression: Continue current medications for depression (5) Elevated troponin: Troponin mildly elevated secondary to tachycardia induced Will cycle serial cardiac enzymes Doubt any ACS (6) Lumbar radiculopathy: Chronic back pain seems to be stable right now (7) Hyperlipidemia: Continue statin GI prophylaxis with Protonix DVT prophylaxis subcu heparin CODE STATUS-full History of Present Illness Chief Complaint: Shortness of breath and chest tightness for the last 1 week Primary Care Provider: Rowena Garcia MD She is a 68-year-old obese female with a significant past medical history of diastolic CHF due to valvular heart disease, COPD, chronic kidney disease stage III, hyperlipidemia, history of pulmonary embolism, chronic back pain with lumbar radiculopathy and depression apparently has been complaining of chest tightness with shortness of breath for the last 1 week. She was on oxygen before for COPD but has not been using it for a while. She started to use oxygen for the last few days but the condition did not improve. She has cough without any phlegm, she does not have any fever but feels chills at times and she complains to have chest tightness associated with it. She denies any chest pain or any abnormal sensation across the left upper extremity or jaw. She does not have any dizziness and/or palpitation. Denies any abdominal pain nausea and/or vomiting. Denies any problem with urine and her bowel habit. Admits to have some swelling of the legs recently. In the ER she was noted to be tachycardic tachypneic with a heart rate of 140 and she received a bolus dose of Cardizem 20 mg in the emergency room and 30 mg oral following that for a possibility of atrial fibrillation with RVR. When I saw her the heart rate went down to 109 and it was a sinus rhythm so Cardizem has been discontinued. He did not have any pneumonia or any problem with a urine. Her initial troponin was slightly elevated and she was admitted to telemetry unit for continuation of care. Allergies Allergy/AdvReac Type Severity Reaction Status Date / Time Uncoded Nonscreenable Allergy Unknown requests Uncoded 10/07/18 07:59 Allergen no narcotics Home Medications Home Medications Medication Instructions Recorded Confirmed Type albuterol sulfate [Ventolin HFA] 1 - 2 puff INHALATION QID PRN 10/07/18 10/07/18 History amitriptyline 25 mg PO HS 10/07/18 10/07/18 History citalopram [Celexa] 30 mg PO QAM 10/07/18 10/07/18 History docusate sodium 100 mg PO BID 10/07/18 10/07/18 History ergocalciferol (vitamin D2) 50,000 unit PO WK 10/07/18 10/07/18 History fluticasone propionate 1 spray INTRANASAL DAILY PRN 10/07/18 10/07/18 History furosemide [Lasix] 20 mg PO QAM 10/07/18 10/07/18 History lisinopril 5 mg PO QAM 10/07/18 10/07/18 History lorazepam [Ativan] 0.5 mg PO TID 10/07/18 10/07/18 History montelukast [Singulair] 10 mg PO PM 10/07/18 10/07/18 History pantoprazole 40 mg PO QAM 10/07/18 10/07/18 History polyethylene glycol 3350 [Miralax] 17 g PO DAILY PRN 10/07/18 10/07/18 History pregabalin [Lyrica] 125 mg PO TID 10/07/18 10/07/18 History pregabalin [Lyrica] 125 mg PO TID 10/07/18 10/07/18 History sennosides [Senokot] 8.6 mg PO BID PRN 10/07/18 10/07/18 History simvastatin [Zocor] 40 mg PO HS 10/07/18 10/07/18 History trazodone 50 mg PO HS 10/07/18 10/07/18 History Past Med/Surg History Medical History History of pulmonary embolism Lumbar radiculopathy Hyperlipidemia Depression CKD (chronic kidney disease) stage 3, GFR 30-59 ml/min Diastolic CHF due to valvular disease Hypertension (Chronic) COPD (chronic obstructive pulmonary disease) (Chronic) Elevated troponin (Resolved) Family History Other Family history non-contributory Social History Preferred Language: Malagasy Communication Ability: Effective Mainframe Developer Required: No Beliefs That Will Affect Care: None marital status: / Current Living Situation: Alone current occupational status: retired Other Information That Helps Us Care for You: No Feels Safe at Home: Yes Smoking Status: Former smoker Smoking End Date: 2007 Hx Alcohol Use: No Hx Substance Use: No Review of Systems Review of Systems: All systems reviewed & are unremarkable except as noted in HPI & below Physical Exam Physical Exam: Moderate shortness of breath at rest Constitutional: well developed, well nourished, + acute distress (Shortness of breath), + ill appearing and + morbidly obese Eyes: PERRL, conjunctivae normal, anicteric sclerae ENMT: external ear and nose normal, oropharynx normal Neck: trachea midline, no thyromegaly Respiratory: + respiratory distress, + labored breathing, + retractions, + uses accessory muscles and + cough Auscultation: + wheezes (All over) Cardiovascular: Rate/Rhythm: regular rate, regular rhythm and + tachycardic Heart Sounds: + murmur (2/6 ejection systolic murmur over aortic area) Extremities: + edema Trace edema bilaterally more on the left than the right Gastrointestinal (Abdomen): Inspection/Auscultation: abdomen normal to inspection and normal bowel sounds Percussion/Palpation: abdomen nontender and no guarding Musculoskeletal: No acute arthritis in any joints Neurologic: PERRL, EOMI, accommodation nl, no face palsy, no dysarthria Psychiatric: A+Ox3, euthymic affect Lymphatic: no cervical or axillary lymphadenopathy Results & Data Vital Signs (Past 12 Hours) Vital Signs Temp Pulse Pulse Resp BP BP Pulse Ox 10/07/18 09:13 123 H 16 93 10/07/18 09:10 123 H 22 150/97 H 98 10/07/18 07:35 93 10/07/18 07:10 36.9 C 150 H 20 135/77 4 L Laboratory Results Short CBC 10/07/18 Range/Units 07:35 WBC 6.10 (4.8-10.8) K/uL Hgb 13.6 (12.0-16.0) g/dL Hct 41.0 (37-47) % Plt Count 134 (130-400) K/uL BMP 10/07/18 07:35 Sodium 138 Potassium 3.9 Chloride 102 Carbon Dioxide 29 BUN 15 Creatinine 1.12 Glucose 122 H Calcium 8.8 Cardiac Enzymes 10/07/18 Range/Units 07:35 Troponin I 0.090 H* (0-0.045) ng/ml Liver Function 10/07/18 Range/Units 07:35 Total Bilirubin 0.3 (0.2-1) mg/dl AST 18 (15-37) U/L ALT 20 (12-78) U/L Alkaline Phosphatase 83 (45-117) U/L Albumin 3.2 L (3.4-5.0) gm/dl Medications Administered Current Inpatient Medications Acetaminophen (Tylenol) 650 mg PO Q4H PRN PRN Reason: Pain or Fever Stop: 11/06/18 10:05 Albuterol (Duoneb) 3 ml NEB Q6H ROBERT Stop: 11/06/18 10:14 Doxycycline Hyclate (Vibramycin) 100 mg PO BID ROBERT Stop: 10/14/18 10:14 Heparin Sodium (Porcine) (Heparin Sodium (Porcine)) 5,000 units SQ Q12 ROBERT Stop: 11/06/18 20:59 Diltiazem HCl 125 mg/ Dextrose 125 mls @ 10 mls/hr IV .[id number] ROBERT; Protocol Stop: 11/06/18 07:44 Last Admin: 10/07/18 09:21 Dose: Not Given Documented by: Azithromycin 500 mg/ Dextrose 255 mls @ 127.5 mls/hr IV NOW STA Stop: 10/07/18 10:50 Last Admin: 10/07/18 09:37 Dose: 127.5 mls/hr Documented by: Methylprednisolone 40 mg/ (Syringe) 0.64 mls @ 1.5 mls/min IV Q8H ROBERT Stop: 11/06/18 10:14 Ondansetron HCl (Zofran) 4 mg IV Q6H PRN PRN Reason: Nausea Stop: 11/06/18 10:05 Code Status & VTE Plan Code Status Full code
[2018-10-07 11:10] LABS: D Dimer 1390 ug/L FEU (0-500)
[2018-10-07] MEDS ORDERED: POLYETHYLENE (MIRALAX) 17 GM PACK PO PRN (11:17)
[2018-10-07] MEDS ORDERED: FLUTICASONE PROPIONATE NA SPR 16 GM BTL NAE PRN (11:17)
[2018-10-07] MEDS ORDERED: SENNA 8.6 MG TAB PO PRN (11:17)
[2018-10-07] MEDS ORDERED: ALBUTEROL HFA 8 GM INHALER INH PRN (11:17)
[2018-10-07 11:51] LABS: Prothrombin Time 9.9 Seconds (9.0-12.0)
[2018-10-07] MEDS ORDERED: OPTIRAY 320 125ml IV PRN (11:57)
--- NOTE | 2018-10-07 12:23 | CT Scan Report ---
CHEST CTA for PULMONARY ARTERIES CT DOSE: 742.66 mGy.cm HISTORY: Severe shortness of breath. TECHNIQUE: Multiaxial CT images of the chest were performed following the intravenous administration of contrast to evaluate the pulmonary arteries. Maximal intensity projection images were also obtaine d. A dose lowering technique was utilized adhering to the principles of ALARA. COMPARISON STUDY: Chest CT 02/23/2016. FINDINGS: Calcified plaque throughout the normal caliber thoracic aorta. No evidence for dissection. The heart is normal in size. No pleural or pericardial effusions. No filling defects within the pulmo nary arteries to suggest pulmonary embolus. The visualized liver, spleen, and adrenal glands are unre markable. Mild thickening of the proximal to mid esophagus. No mediastinal or left hilar lymphadenopa thy. There are 2 enlarged right hilar lymph nodes with the dominant lymph node measuring 1.8 x 1.4 cm . No suspicious lytic or blastic osseous lesions. No fractures identified. No pneumothorax. Moderate emphysema. Mild right lower lobe bronchial wall thickening. Faint groundglass densities and tree-in-b ud nodular opacities within the right lower lobe. This is new from the prior study. This favors a pne umonia. Scattered pulmonary nodules remain stable with the largest in the right middle lobe measuring 6 mm. Therefore, these are likely benign. IMPRESSION: 1. No evidence for pulmonary embolus. 2. Patchy groundglass densities and tree-in-bud nodular opacities within the right lower lobe. There is mild right lower lobe bronchial wall thickening and right hilar lymphadenopathy. This favors a pne umonia with reactive lymphadenopathy. However, 2-[address] follow-up is recommended to ensure resolution. 3. Stable benign scattered subcentimeter pulmonary nodules. 4. Mild thickening of the proximal to mid esophagus. This may represent a mild esophagitis. Electronically signed by: Rob Hallman M.D. 10/07/2018 12:21 PM
[2018-10-07] MEDS: LISINOPRIL 5 MG TAB PO SCH (13:47)
[2018-10-07] MEDS: LORazepam 0.5 MG TAB PO SCH ×2 (13:47→20:34)
[2018-10-07] MEDS: DOXYCYCLINE HYCLATE 100 MG CAP PO SCH ×2 (13:47→20:25)
[2018-10-07] MEDS: PANTOprazole 40 MG TAB PO SCH (13:48)
[2018-10-07] MEDS: ACETAMINOPHEN 325 MG TAB PO PRN (13:55)
[2018-10-07] MEDS: PREGABALIN 25 MG CAP PO SCH ×2 (13:55→20:34)
[2018-10-07] MEDS: PREGABALIN 100 MG CAP PO SCH ×2 (13:55→20:34)
[2018-10-07] MEDS: ALBUT/IPRATROP 3MG/0.5MG NEB 3 ML VIAL NEB SCH ×2 (14:11→19:13)
[2018-10-07] MEDS: methylPREDNISolone 40 MG in SYRINGE 0 ML IV SCH ×2 (17:13→23:27)
[2018-10-07] MEDS ORDERED: IBUPROFEN 200 MG TAB PO STA (19:47)
[2018-10-07] MEDS: SIMVASTATIN 40 MG TAB PO SCH (20:25)
[2018-10-07] MEDS: HEPARIN SOD 5,000 UNIT/0.5 ML VIAL SQ SCH (20:25)
[2018-10-07] MEDS: TRAZODONE HCL 50 MG TAB PO SCH (20:25)
[2018-10-07] MEDS: MONTELUKAST SODIUM 10 MG TABLET PO SCH (20:25)
[2018-10-07] MEDS: DOCUSATE SODIUM 100 MG CAP PO SCH (20:26)
[2018-10-07] MEDS: AMITRIPTYLINE HCL 25 MG TAB PO SCH (20:26)
[2018-10-07] MEDS: BENZONATATE 100 MG CAPSULE PO PRN (22:22)
[2018-10-07] MEDS ORDERED: COUGH DROP (SUGAR FREE) LOZ 24 LOZ/1 BOX BUCCAL ONE (23:31)
[2018-10-07] MEDS ORDERED: COUGH DROP (SUGAR FREE) LOZ 24 LOZ/1 BOX BUCCAL PRN (23:32)
[2018-10-08] MEDS: ALBUT/IPRATROP 3MG/0.5MG NEB 3 ML VIAL NEB SCH ×4 (01:58→19:23)
[2018-10-08] MEDS: ACETAMINOPHEN 325 MG TAB PO PRN ×2 (04:07→14:03)
[2018-10-08] MEDS: BENZONATATE 100 MG CAPSULE PO PRN ×2 (04:08→11:47)
[2018-10-08 05:41] LABS: Hematocrit (blood only) 36.6 % (37-47); Hemoglobin 12.2 g/dL (12.0-16.0); Immature Granulocytes # (auto) 0.01 K/uL (0.00-0.02); Immature Granulocytes % (auto) 0.2 %; Lymphocytes # (auto) 0.68 K/uL (1.2-3.4); Lymphocytes % (auto) 14.4 %; Mean Corpuscular Hgb Conc 33.3 g/dL (32-36); Mean Corpuscular Volume 98.1 fL (80-100); Mean Platelet Volume 10.2 fL (7.4-10.4); Monocytes # (auto) 0.22 K/uL (0.11-0.59); Monocytes % (auto) 4.7 %; Neutrophils # (auto) 3.81 K/uL (1.4-6.5); Neutrophils % (auto) 80.7 %; Platelet Count 122 K/uL (130-400); RDW Coefficient of Variation 12.6 % (11.5-14.5); RDW Standard Deviation 45.2 fL (36.4-46.3); Red Blood Count 3.73 M/uL (4.2-5.4); White Blood Count 4.72 K/uL (4.8-10.8)
[2018-10-08 06:13] LABS: BUN Creatinine Ratio 15.8 (10-20); Calcium 8.5 mg/dl (8.5-10.1); Creatinine Clr Calc Pharmacy 69.9 ml/min; Est GFR (African American) 68.6; Est GFR (Non-African American) 59.2; Potassium 4.5 mmol/L (3.5-5.1)
[2018-10-08] MEDS: LORazepam 0.5 MG TAB PO SCH ×3 (08:19→21:32)
[2018-10-08] MEDS: PREGABALIN 100 MG CAP PO SCH ×3 (08:19→21:32)
[2018-10-08] MEDS: methylPREDNISolone 40 MG in SYRINGE 0 ML IV SCH ×3 (08:19→23:47)
[2018-10-08] MEDS: DOCUSATE SODIUM 100 MG CAP PO SCH ×2 (08:19→21:33)
[2018-10-08] MEDS: PREGABALIN 25 MG CAP PO SCH ×3 (08:19→21:31)
[2018-10-08] MEDS: LISINOPRIL 5 MG TAB PO SCH (08:20)
[2018-10-08] MEDS: PANTOprazole 40 MG TAB PO SCH (08:20)
[2018-10-08] MEDS: DOXYCYCLINE HYCLATE 100 MG CAP PO SCH ×2 (08:21→21:33)
[2018-10-08] MEDS: HEPARIN SOD 5,000 UNIT/0.5 ML VIAL SQ SCH ×2 (08:22→21:33)
[2018-10-08] MEDS ORDERED: FUROSEMIDE 20 MG TAB PO SCH (09:00)
[2018-10-08] MEDS ORDERED: PERFLUTREN LIPID MICROSPHERE (DEFINITY) IV ONE (11:30)
--- NOTE | 2018-10-08 12:33 | Hospitalist Progress Note ---
Date of Service October 08, 2018 Assessment & Plan (1) Acute exacerbation of chronic obstructive pulmonary disease (COPD): Has been complaining of shortness of breath with chest tightness for the last 1 week Likely has acute exacerbation secondary to acute bronchitis We will check d-dimer and if elevated, will get CTA to rule out pulmonary embolism with a history of PE Received intravenous Solu-Medrol and will give nebulized bronchodilator Doxycycline orally. Received 1 dose of azithromycin in the ER Will admit to medical telemetry unit D-dimer was elevated to more than 1000 CTA did not show any pulmonary embolism but it did show possible pneumonitis/pneumonia involving the lower lung We will continue with oral doxycycline Incentive spirometry Feels better today with some ongoing cough (2) Diastolic CHF due to valvular disease: No evidence of any acute failure on chest x-ray We will continue with oral furosemide We will give intravenous furosemide while in the hospital (3) CKD (chronic kidney disease) stage 3, GFR 30-59 ml/min: History of chronic kidney disease Seems to be at her baseline (4) Depression: Continue current medications for depression (5) Elevated troponin: Troponin mildly elevated secondary to tachycardia induced Will cycle serial cardiac enzymes Doubt any ACS Troponin is mildly elevated at 0.128 likely secondary to demand ischemia Denies any cardiac symptoms Will get echocardiogram to evaluate cardiac function (6) Lumbar radiculopathy: Chronic back pain seems to be stable right now (7) Hyperlipidemia: Continue statin GI prophylaxis with Protonix DVT prophylaxis subcu heparin CODE STATUS-full Subjective 10/08 The patient is seen and examined in the telemetry unit She has been feeling a little better today Complaint history of cough but wheezing is better Review of Systems Review of Systems: All systems reviewed and are unremarkable except as noted below Constitutional: + weakness Respiratory: + cough, + dyspnea on exertion and + wheezing Physical Exam Physical Exam: Lying in bed with minimal distress due to cough Constitutional: well developed, well nourished, + acute distress (Shortness of breath), + ill appearing and + morbidly obese Eyes: PERRL, conjunctivae normal, anicteric sclerae ENMT: external ear and nose normal, oropharynx normal Neck: trachea midline, no thyromegaly Respiratory: + respiratory distress and + cough Auscultation: + diminished lung sounds and + wheezes (All over) Cardiovascular: Rate/Rhythm: regular rate, regular rhythm and + tachycardic Heart Sounds: + murmur (2/6 ejection systolic murmur over aortic area) Extremities: + edema Gastrointestinal (Abdomen): Inspection/Auscultation: abdomen normal to inspection and normal bowel sounds Percussion/Palpation: abdomen nontender and no guarding Neurologic: PERRL, EOMI, accommodation nl, no face palsy, no dysarthria Psychiatric: A+Ox3, euthymic affect Lymphatic: no cervical or axillary lymphadenopathy Results & Data Vital Signs (Past 12 Hours) Vital Signs Temp Pulse Pulse Resp BP Pulse Ox Pulse Ox 10/08/18 11:38 36.5 C 70 22 158/75 H 93 10/08/18 08:50 81 10/08/18 08:45 97 10/08/18 07:05 75 18 97 10/08/18 06:51 36.9 C 81 22 136/60 94 10/08/18 03:06 36.9 C 79 18 153/68 H 94 Laboratory Results Short CBC 10/08/18 Range/Units 05:21 WBC 4.72 L (4.8-10.8) K/uL Hgb 12.2 (12.0-16.0) g/dL Hct 36.6 L (37-47) % Plt Count 122 L (130-400) K/uL BMP 10/08/18 05:21 Sodium 136 Potassium 4.5 D Chloride 101 Carbon Dioxide 33 H BUN 15 Creatinine 0.97 Glucose 144 H Calcium 8.5 Cardiac Enzymes 10/07/18 10/07/18 10/07/18 Range/Units 13:53 19:22 23:27 Troponin I 0.104 H* 0.116 H* 0.128 H* (0-0.045) ng/ml Medications Administered Current Inpatient Medications Acetaminophen (Tylenol) 650 mg PO Q4H PRN PRN Reason: Pain or Fever Stop: 11/06/18 10:05 Last Admin: 10/08/18 04:07 Dose: 650 mg Documented by: Albuterol (Duoneb) 3 ml NEB Q6R ROBERT Stop: 11/06/18 13:59 Last Admin: 10/08/18 07:05 Dose: 3 ml Documented by: Albuterol (Ventolin Hfa) 2 puffs INH QID PRN PRN Reason: Shortness Of Breath Stop: 11/06/18 11:16 Amitriptyline HCl (Elavil) 25 mg PO HS ROBERT Stop: 11/06/18 20:59 Last Admin: 10/07/18 20:26 Dose: 25 mg Documented by: Benzonatate (Tessalon Perle) 100 mg PO TID PRN PRN Reason: Cough Stop: 11/06/18 22:07 Last Admin: 10/08/18 11:47 Dose: 100 mg Documented by: Docusate Sodium (Colace) 100 mg PO BID ROBERT Stop: 11/06/18 20:59 Last Admin: 10/08/18 08:19 Dose: 100 mg Documented by: Doxycycline Hyclate (Vibramycin) 100 mg PO BID [facility] Stop: 10/14/18 11:29 Last Admin: 10/08/18 08:21 Dose: 100 mg Documented by: Fluticasone Propionate (Flonase) 1 sprays LUCIANO DAILY PRN PRN Reason: ALLERGY SYMPTOMS Stop: 11/06/18 11:16 Furosemide (Lasix) 20 mg PO QAM [facility] Stop: 11/07/18 08:59 Last Admin: 10/08/18 08:20 Dose: 20 mg Documented by: Heparin Sodium (Porcine) (Heparin Sodium (Porcine)) 5,000 units SQ Q12 ROBERT Stop: 11/06/18 20:59 Last Admin: 10/08/18 08:22 Dose: 5,000 units Documented by: Methylprednisolone 40 mg/ (Syringe) 0.64 mls @ 1.5 mls/min IV Q8H ROBERT Stop: 11/06/18 15:59 Last Admin: 10/08/18 08:19 Dose: 1.5 mls/min Documented by: Ioversol (Optiray 320 125ml) 99 ml IV ONCE PRN PRN Reason: Interaction Checking Stop: 10/11/18 11:56 Last Admin: 10/07/18 11:57 Dose: 99 ml Documented by: Lisinopril (Zestril) 5 mg PO QAM ROBERT Stop: 11/06/18 11:16 Last Admin: 10/08/18 08:20 Dose: 5 mg Documented by: Lorazepam (Ativan) 0.5 mg PO TID ROBERT Stop: 11/06/18 13:59 Last Admin: 10/08/18 08:19 Dose: 0.5 mg Documented by: Menthol (Nice) 1 teri BUCCAL PRN PRN PRN Reason: Cough Stop: 11/06/18 23:31 Montelukast Sodium (Singulair) 10 mg PO PM [facility] Stop: 11/06/18 20:59 Last Admin: 10/07/18 20:25 Dose: 10 mg Documented by: Ondansetron HCl (Zofran) 4 mg IV Q6H PRN PRN Reason: Nausea Stop: 11/06/18 10:05 Pantoprazole Sodium (Protonix) 40 mg PO QAM [facility] Stop: 11/06/18 11:16 Last Admin: 10/08/18 08:20 Dose: 40 mg Documented by: Polyethylene Glycol (Miralax Powder Packet) 17 gm PO DAILY PRN PRN Reason: Constipation Stop: 11/06/18 11:16 Last Admin: 10/08/18 05:11 Dose: 17 gm Documented by: Pregabalin (Lyrica) 25 mg PO TID [facility] Stop: 11/06/18 13:59 Last Admin: 10/08/18 08:19 Dose: 25 mg Documented by: Pregabalin (Lyrica) 100 mg PO TID [facility] Stop: 11/06/18 13:59 Last Admin: 10/08/18 08:19 Dose: 100 mg Documented by: Sennosides (Senokot) 8.6 mg PO BID PRN PRN Reason: Constipation Stop: 11/06/18 11:16 Simvastatin (Zocor) 40 mg PO HS [facility] Stop: 11/06/18 20:59 Last Admin: 10/07/18 20:25 Dose: 40 mg Documented by: Trazodone HCl (Desyrel) 50 mg PO [facility] Stop: 11/06/18 20:59 Last Admin: 10/07/18 20:25 Dose: 50 mg Documented by:
[2018-10-08] MEDS: FUROSEMIDE 40 MG in SYRINGE 0 ML IV SCH (14:04)
[2018-10-08] MEDS: TRAZODONE HCL 50 MG TAB PO SCH (21:32)
[2018-10-08] MEDS: HYDROCODONE/HOMATROPINE SYRUP 5MG/1.5MG 5ML UDP PO PRN (21:32)
[2018-10-08] MEDS: SIMVASTATIN 40 MG TAB PO SCH (21:32)
[2018-10-08] MEDS: MONTELUKAST SODIUM 10 MG TABLET PO SCH (21:32)
[2018-10-08] MEDS: AMITRIPTYLINE HCL 25 MG TAB PO SCH (21:33)
[2018-10-09] MEDS: ALBUT/IPRATROP 3MG/0.5MG NEB 3 ML VIAL NEB SCH ×4 (02:15→19:08)
[2018-10-09 06:10] LABS: Basophils # (auto) 0.01 K/uL (0-0.2); Basophils % (auto) 0.1 %; Hematocrit (blood only) 36.2 % (37-47); Immature Granulocytes # (auto) 0.04 K/uL (0.00-0.02); Immature Granulocytes % (auto) 0.5 %; Lymphocytes # (auto) 0.81 K/uL (1.2-3.4); Lymphocytes % (auto) 9.5 %; Mean Corpuscular Hgb Conc 33.1 g/dL (32-36); Mean Corpuscular Volume 99.7 fL (80-100); Mean Platelet Volume 10.8 fL (7.4-10.4); Monocytes # (auto) 0.35 K/uL (0.11-0.59); Monocytes % (auto) 4.1 %; Neutrophils # (auto) 7.34 K/uL (1.4-6.5); Neutrophils % (auto) 85.8 %; Platelet Count 124 K/uL (130-400); RDW Coefficient of Variation 12.8 % (11.5-14.5); RDW Standard Deviation 46.9 fL (36.4-46.3); Red Blood Count 3.63 M/uL (4.2-5.4); White Blood Count 8.55 K/uL (4.8-10.8)
[2018-10-09 06:46] LABS: BUN Creatinine Ratio 22.7 (10-20); Calcium 8.8 mg/dl (8.5-10.1); Creatinine Clr Calc Pharmacy 62.7 ml/min; Est GFR (African American) 60.2; Magnesium 2.3 mg/dl (1.8-2.4); Potassium 4.9 mmol/L (3.5-5.1)
[2018-10-09] MEDS: DOXYCYCLINE HYCLATE 100 MG CAP PO SCH ×2 (08:09→22:04)
[2018-10-09] MEDS: PREGABALIN 100 MG CAP PO SCH ×3 (08:09→22:10)
[2018-10-09] MEDS: PREGABALIN 25 MG CAP PO SCH ×3 (08:09→22:09)
[2018-10-09] MEDS: FUROSEMIDE 40 MG in SYRINGE 0 ML IV SCH (08:09)
[2018-10-09] MEDS: DOCUSATE SODIUM 100 MG CAP PO SCH ×2 (08:09→22:09)
[2018-10-09] MEDS: LORazepam 0.5 MG TAB PO SCH ×3 (08:09→22:09)
[2018-10-09] MEDS: LISINOPRIL 5 MG TAB PO SCH (08:09)
[2018-10-09] MEDS: PANTOprazole 40 MG TAB PO SCH (08:09)
[2018-10-09] MEDS: methylPREDNISolone 40 MG in SYRINGE 0 ML IV SCH ×2 (08:09→17:03)
[2018-10-09] MEDS: HEPARIN SOD 5,000 UNIT/0.5 ML VIAL SQ SCH ×2 (08:10→22:10)
[2018-10-09] MEDS: ACETAMINOPHEN 325 MG TAB PO PRN (08:13)
[2018-10-09] MEDS: HYDROCODONE/HOMATROPINE SYRUP 5MG/1.5MG 5ML UDP PO PRN ×2 (09:36→22:03)
--- NOTE | 2018-10-09 11:22 | Hospitalist Progress Note ---
Date of Service October 09, 2018 Assessment & Plan (1) Acute exacerbation of chronic obstructive pulmonary disease (COPD): Has been complaining of shortness of breath with chest tightness for the last 1 week Likely has acute exacerbation secondary to acute bronchitis We will check d-dimer and if elevated, will get CTA to rule out pulmonary embolism with a history of PE Received intravenous Solu-Medrol and will give nebulized bronchodilator Doxycycline orally. Received 1 dose of azithromycin in the ER Will admit to medical telemetry unit D-dimer was elevated to more than 1000 CTA did not show any pulmonary embolism but it did show possible pneumonitis/pneumonia involving the lower lung We will continue with oral doxycycline Incentive spirometry Has been feeling a lot better today (2) Diastolic CHF due to valvular disease: No evidence of any acute failure on chest x-ray We will continue with oral furosemide We will give intravenous furosemide while in the hospital Troponin is mildly elevated likely secondary to demand ischemia and CHF Echo of the heart: Left ventricle is normal in size, no wall motion abnormality, EF 65 to 70%, aortic valve moderately calcified with moderate aortic stenosis, mild AR, aortic root is normal in size compared with 12/20/2015 no significant change (3) CKD (chronic kidney disease) stage 3, GFR 30-59 ml/min: History of chronic kidney disease Seems to be at her baseline (4) Depression: Continue current medications for depression (5) Elevated troponin: Troponin mildly elevated secondary to tachycardia induced Will cycle serial cardiac enzymes Doubt any ACS-no ACS Troponin is mildly elevated at 0.128 likely secondary to demand ischemia Denies any cardiac symptoms Will get echocardiogram to evaluate cardiac function: As above (6) Lumbar radiculopathy: Chronic back pain seems to be stable right now (7) Hyperlipidemia: Continue statin GI prophylaxis with Protonix DVT prophylaxis subcu heparin CODE STATUS-full We will transfer to medical floor PT /OT evaluation Possible discharge tomorrow Subjective 10/08 The patient is seen and examined in the telemetry unit She has been feeling a little better today Complaint history of cough but wheezing is better 10/09 Patient is seen and examined in telemetry unit She has been feeling a lot better She has been ambulating inside the room Denies any chest pain and/or palpitation Review of Systems Review of Systems: All systems reviewed and are unremarkable except as noted. Constitutional: + weakness Respiratory: + cough, + dyspnea on exertion and + wheezing (Minimal) Physical Exam Physical Exam: Lying in bed comfortably Constitutional: well developed, well nourished, + acute distress (Shortness of breath), + ill appearing and + morbidly obese Eyes: PERRL, conjunctivae normal, anicteric sclerae ENMT: external ear and nose normal, oropharynx normal Neck: trachea midline, no thyromegaly Respiratory: normal respiratory effort and + cough Auscultation: + diminished lung sounds and + wheezes (Improved a lot) Cardiovascular: Rate/Rhythm: regular rate, regular rhythm and + tachycardic Heart Sounds: + murmur (2/6 ejection systolic murmur over aortic area) Extremities: + edema Gastrointestinal (Abdomen): Inspection/Auscultation: abdomen normal to inspection and normal bowel sounds Percussion/Palpation: abdomen nontender and no guarding Neurologic: PERRL, EOMI, accommodation nl, no face palsy, no dysarthria Psychiatric: A+Ox3, euthymic affect Lymphatic: no cervical or axillary lymphadenopathy Results & Data Vital Signs (Past 12 Hours) Vital Signs Temp Pulse Resp BP BP Pulse Ox 10/09/18 10:47 36.8 C 73 22 132/68 94 10/09/18 07:40 36.9 C 88 20 129/78 93 10/09/18 07:00 80 18 97 10/09/18 04:30 36.7 C 84 20 146/69 H 91 Laboratory Results Short CBC 10/09/18 Range/Units 05:38 WBC 8.55 (4.8-10.8) K/uL Hgb 12.0 (12.0-16.0) g/dL Hct 36.2 L (37-47) % Plt Count 124 L (130-400) K/uL BMP 10/09/18 05:38 Sodium 137 Potassium 4.9 Chloride 102 Carbon Dioxide 33 H BUN 25 H D Creatinine 1.08 Glucose 138 H Calcium 8.8 Medications Administered Current Inpatient Medications Acetaminophen (Tylenol) 650 mg PO Q4H PRN PRN Reason: Pain or Fever Stop: 11/06/18 10:05 Last Admin: 10/09/18 08:13 Dose: 650 mg Documented by: Albuterol (Duoneb) 3 ml NEB Q6R ROBERT Stop: 11/06/18 13:59 Last Admin: 10/09/18 07:00 Dose: 3 ml Documented by: Albuterol (Ventolin Hfa) 2 puffs INH QID PRN PRN Reason: Shortness Of Breath Stop: 11/06/18 11:16 Amitriptyline HCl (Elavil) 25 mg PO HS ROBERT Stop: 11/06/18 20:59 Last Admin: 10/08/18 21:33 Dose: 25 mg Documented by: Benzonatate (Tessalon Perle) 100 mg PO TID PRN PRN Reason: Cough Stop: 11/06/18 22:07 Last Admin: 10/08/18 11:47 Dose: 100 mg Documented by: Docusate Sodium (Colace) 100 mg PO BID ROBERT Stop: 11/06/18 20:59 Last Admin: 10/09/18 08:09 Dose: 100 mg Documented by: Doxycycline Hyclate (Vibramycin) 100 mg PO BID ROBERT Stop: 10/14/18 11:29 Last Admin: 10/09/18 08:09 Dose: 100 mg Documented by: Fluticasone Propionate (Flonase) 1 sprays LUCIANO DAILY PRN PRN Reason: ALLERGY SYMPTOMS Stop: 11/06/18 11:16 Heparin Sodium (Porcine) (Heparin Sodium (Porcine)) 5,000 units SQ Q12 ROBERT Stop: 11/06/18 20:59 Last Admin: 10/09/18 08:10 Dose: 5,000 units Documented by: Hydrocodone Bit/Homatropine Methylb (Hycodan) 5 ml PO Q6H PRN PRN Reason: Cough Stop: 10/22/18 12:33 Last Admin: 10/09/18 09:36 Dose: 5 ml Documented by: Methylprednisolone 40 mg/ (Syringe) 0.64 mls @ 1.5 mls/min IV Q8H ROBERT Stop: 11/06/18 15:59 Last Admin: 10/09/18 08:09 Dose: 1.5 mls/min Documented by: Furosemide 40 mg/ Syringe 4 mls @ 4 mls/min IV DAILY ROBERT Stop: 11/07/18 12:44 Last Admin: 10/09/18 08:09 Dose: 4 mls/min Documented by: Ioversol (Optiray 320 125ml) 99 ml IV ONCE PRN PRN Reason: Interaction Checking Stop: 10/11/18 11:56 Last Admin: 10/07/18 11:57 Dose: 99 ml Documented by: Lisinopril (Zestril) 5 mg PO QAM [facility] Stop: 11/06/18 11:16 Last Admin: 10/09/18 08:09 Dose: 5 mg Documented by: Lorazepam (Ativan) 0.5 mg PO TID [facility] Stop: 11/06/18 13:59 Last Admin: 10/09/18 08:09 Dose: 0.5 mg Documented by: Menthol (Nice) 1 teri BUCCAL PRN PRN PRN Reason: Cough Stop: 11/06/18 23:31 Montelukast Sodium (Singulair) 10 mg PO PM [facility] Stop: 11/06/18 20:59 Last Admin: 10/08/18 21:32 Dose: 10 mg Documented by: Ondansetron HCl (Zofran) 4 mg IV Q6H PRN PRN Reason: Nausea Stop: 11/06/18 10:05 Pantoprazole Sodium (Protonix) 40 mg PO QAM [facility] Stop: 11/06/18 11:16 Last Admin: 10/09/18 08:09 Dose: 40 mg Documented by: Polyethylene Glycol (Miralax Powder Packet) 17 gm PO DAILY PRN PRN Reason: Constipation Stop: 11/06/18 11:16 Last Admin: 10/08/18 05:11 Dose: 17 gm Documented by: Pregabalin (Lyrica) 25 mg PO TID [facility] Stop: 11/06/18 13:59 Last Admin: 10/09/18 08:09 Dose: 25 mg Documented by: Pregabalin (Lyrica) 100 mg PO TID [facility] Stop: 11/06/18 13:59 Last Admin: 10/09/18 08:09 Dose: 100 mg Documented by: Sennosides (Senokot) 8.6 mg PO BID PRN PRN Reason: Constipation Stop: 11/06/18 11:16 Simvastatin (Zocor) 40 mg PO HS [facility] Stop: 11/06/18 20:59 Last Admin: 10/08/18 21:32 Dose: 40 mg Documented by: Trazodone HCl (Desyrel) 50 mg PO HS [facility] Stop: 11/06/18 20:59 Last Admin: 10/08/18 21:32 Dose: 50 mg Documented by:
[2018-10-09] MEDS: TRAZODONE HCL 50 MG TAB PO SCH (22:04)
[2018-10-09] MEDS: MONTELUKAST SODIUM 10 MG TABLET PO SCH (22:04)
[2018-10-09] MEDS: AMITRIPTYLINE HCL 25 MG TAB PO SCH (22:09)
[2018-10-09] MEDS: SIMVASTATIN 40 MG TAB PO SCH (22:10)
[2018-10-10] MEDS: methylPREDNISolone 40 MG in SYRINGE 0 ML IV SCH ×2 (00:42→07:43)
[2018-10-10] MEDS: ALBUT/IPRATROP 3MG/0.5MG NEB 3 ML VIAL NEB SCH ×2 (01:41→06:54)
[2018-10-10] MEDS: HYDROCODONE/HOMATROPINE SYRUP 5MG/1.5MG 5ML UDP PO PRN (06:23)
[2018-10-10] MEDS: DOCUSATE SODIUM 100 MG CAP PO SCH (07:44)
[2018-10-10] MEDS: LORazepam 0.5 MG TAB PO SCH ×2 (07:44→13:53)
[2018-10-10] MEDS: LISINOPRIL 5 MG TAB PO SCH (07:45)
[2018-10-10] MEDS: PREGABALIN 25 MG CAP PO SCH ×2 (07:45→13:53)
[2018-10-10] MEDS: DOXYCYCLINE HYCLATE 100 MG CAP PO SCH (07:45)
[2018-10-10] MEDS: PANTOprazole 40 MG TAB PO SCH (07:45)
[2018-10-10] MEDS: PREGABALIN 100 MG CAP PO SCH ×2 (07:45→13:54)
[2018-10-10] MEDS: HEPARIN SOD 5,000 UNIT/0.5 ML VIAL SQ SCH (07:51)
[2018-10-10] MEDS: FUROSEMIDE 40 MG in SYRINGE 0 ML IV SCH (07:53)
[2018-10-10 08:49] LABS: BUN Creatinine Ratio 27.3 (10-20); Creatinine Clr Calc Pharmacy 62.7 ml/min; Est GFR (African American) 60.2; Potassium 4.5 mmol/L (3.5-5.1)
--- NOTE | 2018-10-10 12:05 | Hospitalist Progress Note ---
Date of Service October 10, 2018 Assessment & Plan (1) Acute exacerbation of chronic obstructive pulmonary disease (COPD): Has been complaining of shortness of breath with chest tightness for the last 1 week Likely has acute exacerbation secondary to acute bronchitis We will check d-dimer and if elevated, will get CTA to rule out pulmonary embolism with a history of PE Received intravenous Solu-Medrol and will give nebulized bronchodilator Doxycycline orally. Received 1 dose of azithromycin in the ER Will admit to medical telemetry unit D-dimer was elevated to more than 1000 CTA did not show any pulmonary embolism but it did show possible pneumonitis/pneumonia involving the lower lung We will continue with oral doxycycline Has been feeling a lot better today without any shortness of breath at rest Denies any more wheezing and her cough and wants to go home We will get to a step O2 saturation test before discharge today (2) Diastolic CHF due to valvular disease: No evidence of any acute failure on chest x-ray We will continue with oral furosemide We will give intravenous furosemide while in the hospital Troponin is mildly elevated likely secondary to demand ischemia and CHF Echo of the heart: Left ventricle is normal in size, no wall motion abnormality, EF 65 to 70%, aortic valve moderately calcified with moderate aortic stenosis, mild AR, aortic root is normal in size compared with 12/20/2015 no significant change No symptoms of fluid overload (3) CKD (chronic kidney disease) stage 3, GFR 30-59 ml/min: History of chronic kidney disease Seems to be at her baseline (4) Depression: Continue current medications for depression (5) Elevated troponin: Troponin mildly elevated secondary to tachycardia induced Will cycle serial cardiac enzymes Doubt any ACS-no ACS Troponin is mildly elevated at 0.128 likely secondary to demand ischemia Denies any cardiac symptoms Will get echocardiogram to evaluate cardiac function: As above (6) Lumbar radiculopathy: Chronic back pain seems to be stable right now Back pain is stable (7) Hyperlipidemia: Continue statin GI prophylaxis with Protonix DVT prophylaxis subcu heparin CODE STATUS-full We will transfer to medical floor PT /OT evaluation- Will up to a step O2 saturation before discharge today Subjective 10/08 The patient is seen and examined in the telemetry unit She has been feeling a little better today Complaint history of cough but wheezing is better 10/09 Patient is seen and examined in telemetry unit She has been feeling a lot better She has been ambulating inside the room Denies any chest pain and/or palpitation 10/10 Patient was seen and examined in medical floor She has been doing much better She has noted to have some desaturation on ambulation Related to a step oxygen saturation test before discharge this afternoon Review of Systems Constitutional: + weakness Respiratory: + cough, + dyspnea on exertion and + wheezing (Minimal) Physical Exam Physical Exam: No apparent distress at rest Constitutional: well developed, well nourished, + acute distress (Shortness of breath), + ill appearing and + morbidly obese Eyes: PERRL, conjunctivae normal, anicteric sclerae ENMT: external ear and nose normal, oropharynx normal Neck: trachea midline, no thyromegaly Respiratory: normal respiratory effort and + cough Auscultation: + diminished lung sounds and + wheezes (Improved a lot) Cardiovascular: Rate/Rhythm: regular rate, regular rhythm and + tachycardic Heart Sounds: + murmur (2/6 ejection systolic murmur over aortic area) Extremities: + edema Gastrointestinal (Abdomen): Inspection/Auscultation: abdomen normal to inspection and normal bowel sounds Percussion/Palpation: abdomen nontender and no guarding Neurologic: PERRL, EOMI, accommodation nl, no face palsy, no dysarthria Psychiatric: A+Ox3, euthymic affect Lymphatic: no cervical or axillary lymphadenopathy Results & Data Vital Signs (Past 12 Hours) Vital Signs Temp Pulse Resp BP Pulse Ox Pulse Ox Pulse Ox 10/10/18 10:48 95 93 10/10/18 08:09 36.8 C 73 18 146/70 H 91 10/10/18 07:58 78 155/77 H 10/10/18 06:54 75 18 10/10/18 01:41 78 16 95 10/10/18 00:25 36.5 C 77 20 154/67 H 92 Pulse Ox 10/10/18 10:48 84 L 10/10/18 08:09 10/10/18 07:58 10/10/18 06:54 10/10/18 01:41 10/10/18 00:25 Laboratory Results BMP 10/10/18 08:02 Sodium 137 Potassium 4.5 Chloride 99 Carbon Dioxide 33 H BUN 30 H Creatinine 1.08 Glucose 136 H Calcium 9.0 Medications Administered Current Inpatient Medications Acetaminophen (Tylenol) 650 mg PO Q4H PRN PRN Reason: Pain or Fever Stop: 11/06/18 10:05 Last Admin: 10/09/18 08:13 Dose: 650 mg Documented by: Albuterol (Duoneb) 3 ml NEB Q6R ROBERT Stop: 11/06/18 13:59 Last Admin: 10/10/18 06:54 Dose: 3 ml Documented by: Albuterol (Ventolin Hfa) 2 puffs INH QID PRN PRN Reason: Shortness Of Breath Stop: 11/06/18 11:16 Amitriptyline HCl (Elavil) 25 mg PO HS [facility] Stop: 11/06/18 20:59 Last Admin: 10/09/18 22:09 Dose: 25 mg Documented by: Benzonatate (Tessalon Perle) 100 mg PO TID PRN PRN Reason: Cough Stop: 11/06/18 22:07 Last Admin: 10/08/18 11:47 Dose: 100 mg Documented by: Docusate Sodium (Colace) 100 mg PO BID ROBERT Stop: 11/06/18 20:59 Last Admin: 10/10/18 07:44 Dose: 100 mg Documented by: Doxycycline Hyclate (Vibramycin) 100 mg PO BID [facility] Stop: 10/14/18 11:29 Last Admin: 10/10/18 07:45 Dose: 100 mg Documented by: Fluticasone Propionate (Flonase) 1 sprays LUCIANO DAILY PRN PRN Reason: ALLERGY SYMPTOMS Stop: 11/06/18 11:16 Heparin Sodium (Porcine) (Heparin Sodium (Porcine)) 5,000 units SQ Q12 ROBERT Stop: 11/06/18 20:59 Last Admin: 10/10/18 07:51 Dose: 5,000 units Documented by: Hydrocodone Bit/Homatropine Methylb (Hycodan) 5 ml PO Q6H PRN PRN Reason: Cough Stop: 10/22/18 12:33 Last Admin: 10/10/18 06:23 Dose: 5 ml Documented by: Methylprednisolone 40 mg/ (Syringe) 0.64 mls @ 1.5 mls/min IV Q8H ROBERT Stop: 11/06/18 15:59 Last Admin: 10/10/18 07:43 Dose: 1.5 mls/min Documented by: Furosemide 40 mg/ Syringe 4 mls @ 4 mls/min IV DAILY ROBERT Stop: 11/07/18 12:44 Last Admin: 10/10/18 07:53 Dose: 4 mls/min Documented by: Ioversol (Optiray 320 125ml) 99 ml IV ONCE PRN PRN Reason: Interaction Checking Stop: 10/11/18 11:56 Last Admin: 10/07/18 11:57 Dose: 99 ml Documented by: Lisinopril (Zestril) 5 mg PO QAM [facility] Stop: 11/06/18 11:16 Last Admin: 10/10/18 07:45 Dose: 5 mg Documented by: Lorazepam (Ativan) 0.5 mg PO TID [facility] Stop: 11/06/18 13:59 Last Admin: 10/10/18 07:44 Dose: 0.5 mg Documented by: Menthol (Nice) 1 teri BUCCAL PRN PRN PRN Reason: Cough Stop: 11/06/18 23:31 Montelukast Sodium (Singulair) 10 mg PO PM [facility] Stop: 11/06/18 20:59 Last Admin: 10/09/18 22:04 Dose: 10 mg Documented by: Ondansetron HCl (Zofran) 4 mg IV Q6H PRN PRN Reason: Nausea Stop: 11/06/18 10:05 Pantoprazole Sodium (Protonix) 40 mg PO QAM [facility] Stop: 11/06/18 11:16 Last Admin: 10/10/18 07:45 Dose: 40 mg Documented by: Polyethylene Glycol (Miralax Powder Packet) 17 gm PO DAILY PRN PRN Reason: Constipation Stop: 11/06/18 11:16 Last Admin: 10/08/18 05:11 Dose: 17 gm Documented by: Pregabalin (Lyrica) 25 mg PO TID [facility] Stop: 11/06/18 13:59 Last Admin: 10/10/18 07:45 Dose: 25 mg Documented by: Pregabalin (Lyrica) 100 mg PO TID [facility] Stop: 11/06/18 13:59 Last Admin: 10/10/18 07:45 Dose: 100 mg Documented by: Sennosides (Senokot) 8.6 mg PO BID PRN PRN Reason: Constipation Stop: 11/06/18 11:16 Simvastatin (Zocor) 40 mg PO HS [facility] Stop: 11/06/18 20:59 Last Admin: 10/09/18 22:10 Dose: 40 mg Documented by: Trazodone HCl (Desyrel) 50 mg PO HS [facility] Stop: 11/06/18 20:59 Last Admin: 10/09/18 22:04 Dose: 50 mg Documented by:
--- NOTE | 2018-10-10 18:46 | Discharge Summary ---
Date of Service October 10, 2018 Admission HPI Per Admitting Provider She is a 68-year-old obese female with a significant past medical history of diastolic CHF due to valvular heart disease, COPD, chronic kidney disease stage III, hyperlipidemia, history of pulmonary embolism, chronic back pain with lumbar radiculopathy and depression apparently has been complaining of chest tightness with shortness of breath for the last 1 week. She was on oxygen before for COPD but has not been using it for a while. She started to use oxygen for the last few days but the condition did not improve. She has cough without any phlegm, she does not have any fever but feels chills at times and she complains to have chest tightness associated with it. She denies any chest pain or any abnormal sensation across the left upper extremity or jaw. She does not have any dizziness and/or palpitation. Denies any abdominal pain nausea and/or vomiting. Denies any problem with urine and her bowel habit. Admits to have some swelling of the legs recently. In the ER she was noted to be tachycardic tachypneic with a heart rate of 140 and she received a bolus dose of Cardizem 20 mg in the emergency room and 30 mg oral following that for a possibility of atrial fibrillation with RVR. When I saw her the heart rate went down to 109 and it was a sinus rhythm so Cardizem has been discontinued. He did not have any pneumonia or any problem with a urine. Her initial troponin was slightly elevated and she was admitted to telemetry unit for continuation of care. Admission Exam Per Admitting Provider Physical Exam: Moderate shortness of breath at rest Constitutional: well developed, well nourished, + acute distress (Shortness of breath), + ill appearing and + morbidly obese Eyes: PERRL, conjunctivae normal, anicteric sclerae ENMT: external ear and nose normal, oropharynx normal Neck: trachea midline, no thyromegaly Respiratory: + respiratory distress, + labored breathing, + retractions, + uses accessory muscles and + cough Auscultation: + wheezes (All over) Cardiovascular: Rate/Rhythm: regular rate, regular rhythm and + tachycardic Heart Sounds: + murmur (2/6 ejection systolic murmur over aortic area) Extremities: + edema Trace edema bilaterally more on the left than the right Gastrointestinal (Abdomen): Inspection/Auscultation: abdomen normal to inspection and normal bowel sounds Percussion/Palpation: abdomen nontender and no guarding Musculoskeletal: No acute arthritis in any joints Neurologic: PERRL, EOMI, accommodation nl, no face palsy, no dysarthria Psychiatric: A+Ox3, euthymic affect Lymphatic: no cervical or axillary lymphadenopathy Principal Diagnosis Acute exacerbation of COPD, chronic diastolic CHF due to valvular heart disease, CKD Discharge Exam Constitutional well developed, well nourished, + acute distress (Shortness of breath), + ill appearing and + morbidly obese Eyes PERRL, conjunctivae normal, anicteric sclerae ENMT external ear and nose normal, oropharynx normal Neck trachea midline, no thyromegaly Respiratory normal respiratory effort and + cough Auscultation: + diminished lung sounds and + wheezes (Improved a lot) Cardiovascular Rate/Rhythm: regular rate, regular rhythm and + tachycardic Heart Sounds: + murmur (2/6 ejection systolic murmur over aortic area) Extremities: + edema Gastrointestinal (Abdomen) Inspection/Auscultation: abdomen normal to inspection and normal bowel sounds Percussion/Palpation: abdomen nontender and no guarding Neurologic PERRL, EOMI, accommodation nl, no face palsy, no dysarthria Psychiatric A+Ox3, euthymic affect Lymphatic no cervical or axillary lymphadenopathy Discharge Data Allergies Allergy/AdvReac Type Severity Reaction Status Date / Time Uncoded Nonscreenable Allergy Unknown requests Uncoded 10/07/18 07:59 Allergen no narcotics Consultations 10/07/18 09:37 ED Decision to Admit Stat Ordered Studies 10/07/18 11:18 CT angio chest PE protocol Urgent Hospital Course (1) Acute exacerbation of chronic obstructive pulmonary disease (COPD): Has been complaining of shortness of breath with chest tightness for the last 1 week Likely has acute exacerbation secondary to acute bronchitis We will check d-dimer and if elevated, will get CTA to rule out pulmonary embolism with a history of PE Received intravenous Solu-Medrol and will give nebulized bronchodilator Doxycycline orally. Received 1 dose of azithromycin in the ER Will admit to medical telemetry unit D-dimer was elevated to more than 1000 CTA did not show any pulmonary embolism but it did show possible pneumonitis/pneumonia involving the lower lung We will continue with oral doxycycline Has been feeling a lot better today without any shortness of breath at rest Denies any more wheezing and her cough and wants to go home We will get to a step O2 saturation test before discharge today (2) Diastolic CHF due to valvular disease: No evidence of any acute failure on chest x-ray We will continue with oral furosemide We will give intravenous furosemide while in the hospital Troponin is mildly elevated likely secondary to demand ischemia and CHF Echo of the heart: Left ventricle is normal in size, no wall motion abnormality, EF 65 to 70%, aortic valve moderately calcified with moderate aortic stenosis, mild AR, aortic root is normal in size compared with 12/20/2015 no significant change No symptoms of fluid overload (3) CKD (chronic kidney disease) stage 3, GFR 30-59 ml/min: History of chronic kidney disease Seems to be at her baseline (4) Depression: Continue current medications for depression (5) Elevated troponin: Troponin mildly elevated secondary to tachycardia induced Will cycle serial cardiac enzymes Doubt any ACS-no ACS Troponin is mildly elevated at 0.128 likely secondary to demand ischemia Denies any cardiac symptoms Will get echocardiogram to evaluate cardiac function: As above (6) Lumbar radiculopathy: Chronic back pain seems to be stable right now Back pain is stable (7) Hyperlipidemia: Continue statin GI prophylaxis with Protonix DVT prophylaxis subcu heparin CODE STATUS-full We will transfer to medical floor PT /OT evaluation- Will up to a step O2 saturation before discharge today Total Time Total Time Spent Total Time Spent (In Minutes): 35 minutes Total Time Includes: Examination of the Patient, Discharge Planning, Medication Reconciliation and Communication With Other Providers Discharge Plan Discharge Items Patient Disposition: Home - Home Health Services Reason For Visit: copd exacerbation,chest tightness,tachycardia Discharge Diagnosis: Acute exacerbation of COPD, chronic diastolic CHF due to valvular heart disease, CKD Condition: Fair Discharge Goals: Decrease discomfort, Improve function and Increase independence Activity: Resume your previous activity Non-emergency contact: Primary Care Provider Call non-emergency contact if: you have any medication questions and your symptoms worsen Follow-up/Referrals: Rowena Garcia MD [Primary Care Provider] - 10/17/18 12:45 pm Diet: Heart Healthy and Low Sodium (2gm) Fluids: 1800ml (7 cups) Addtl Provider Instructions: Call 911 and go to the Emergency Room if: * You have tightness or pain in your chest that does not go away with rest or Nitroglycerin * You are very short of breath even with rest Call your doctor if any of the following symptoms or problems start or get worse: * Shortness of breath or difficulty breathing * Wake up at night short of breath * Chest pain * Cough * Swelling of your hands, fee, or legs * More fatigued or tired with your normal activity * Palpitations - sudden fast heart beats WEIGHT * Weigh yourself every morning after using the bathroom. * Use the same scale. * Wear the same amount of clothing. * Write your weight down on your chart. * Call your doctor if you gain more than 2-3 pounds in 1-2 days. MEDICATIONS * Use this discharge instruction sheet for instructions. * Take your medications at the time your doctor ordered. * Do not skip a dose of your medicines. * If you miss a dose of medicine, take as soon as possible, but DO NOT DOUBLE A DOSE. * Read your medicine information when you get home. * Know all of the side effects of your medicine. * Call your doctor's office if you have any side effects. * Be sure all of your doctors know what medicine and herbs you take (including cold, flu, and herbal medicine). * Pain Medicine: If you do not get relief from your pain, please call your doctor for help. Take the following with you to your follow-up doctor appointments: * Weight Chart * Medication List * List of questions Do not drink excessive alcohol, beer or wine. Please take precaution to avoid falls Prescriptions: New doxycycline hyclate 100 mg Capsule 100 mg PO BID 6 Days Qty: 12 RF: 0 hydrocodone-homatropine [Hydromet] 5-1.5 mg/5 mL Syrup 5 ml PO Q6H PRN (Reason: cough) 5 Days Qty: 100 RF: 0 prednisone 10 mg tablet 10 mg PO UD Qty: 30 RF: 0 Oxygen Home Liters Per Minute .ROUTE .MEDSUPPLY Qty: 1 RF: 0 Continued sennosides [Senokot] 8.6 mg Tablet 8.6 mg PO BID PRN (Reason: Constipation) RF: 0 trazodone 50 mg Tablet 50 mg PO HS RF: 0 polyethylene glycol 3350 [Miralax] 17 gram Powder In Packet 17 g PO DAILY PRN (Reason: Constipation) RF: 0 simvastatin [Zocor] 40 mg Tablet 40 mg PO HS RF: 0 citalopram [Celexa] 20 mg tablet 30 mg PO QAM RF: 0 amitriptyline 25 mg tablet 25 mg PO HS RF: 0 lorazepam [Ativan] 0.5 mg tablet 0.5 mg PO TID RF: 0 pantoprazole 40 mg Tablet,Delayed Release (Dr/Ec) 40 mg PO QAM RF: 0 montelukast [Singulair] 10 mg Tablet 10 mg PO PM RF: 0 lisinopril 5 mg Tablet 5 mg PO QAM RF: 0 furosemide [Lasix] 20 mg Tablet 20 mg PO QAM RF: 0 ergocalciferol (vitamin D2) 50,000 unit Capsule 50,000 unit PO WK RF: 0 albuterol sulfate [Ventolin HFA] 90 mcg/actuation Hfa Aerosol Inhaler 1 - 2 puff INHALATION QID PRN (Reason: Shortness Of Breath) RF: 0 fluticasone propionate 50 mcg/actuation Swatara,Suspension 1 spray INTRANASAL DAILY PRN (Reason: Allergy Symptoms) RF: 0 docusate sodium 100 mg Tablet 100 mg PO BID RF: 0 Lyrica 25 mg Capsule 125 mg PO TID RF: 0 Lyrica 100 mg Capsule 125 mg PO TID RF: 0 Stand-Alone Forms: [facility] Discharge Orders: Discharge Order (Routine); Ordered 10/10/18 Ordered By: Alex Hurley Admission Data Admit Date/Time: 10/07/18 10:06 Attending Provider: Alex Hurley Admit Provider: Alex Hurley Primary Care Provider: Rowena Garcia Other Providers: Alex Hurley Service: Medical Other Interventions: Discharge Summary Assessment (RN) Last Done: 10/10/18 13:35 DC Date/Time DO NOT enter until pt leaves facility: 10/10/18 14:30
== END 2018-10-10 14:30 | disposition home health service (06) | DRG 191 ==
LOC: ED 07:20 → 2S 10:06 → 4E 10-09 11:25

== ENCOUNTER 2019-04-30 11:59 | Inpatient (IN) ==
[2019-04-30] MEDS ORDERED: ALBUT/IPRATROP 3MG/0.5MG NEB 3 ML VIAL NEB ONE (12:15)
[2019-04-30] MEDS ORDERED: methylPREDNISolone 125 MG/2 ML VIAL IV STA (12:15)
[2019-04-30] MEDS ORDERED: MAGNESIUM SULFATE / D5W 1 GM/100 ML BAG IV ONE (12:15)
[2019-04-30] MEDS ORDERED: methylPREDNISolone 60 MG in SYRINGE 1 ML IV STA (12:17)
--- NOTE | 2019-04-30 12:33 | XRay Report ---
XR chest 1V portable CLINICAL HISTORY: Chest Pain pain COMPARISON STUDY: 10/07/2018 FINDINGS: Emphysematous change. Parenchymal prominence both lung bases considered chronic. No well-de fined acute infiltrate. IMPRESSION: Emphysematous change. No focal infiltrate. The above report was generated using voice recognition software. It may contain grammatical, syntax or spelling errors. Electronically signed by: Ismael Salas M.D. 04/30/2019 12:32 PM
[2019-04-30 13:40] LABS: Basophils # (auto) 0.01 K/uL (0-0.2); Basophils % (auto) 0.1 %; Eosinophils # (auto) 0.04 K/uL (0-0.5); Eosinophils % (auto) 0.4 %; Hematocrit (blood only) 43.6 % (37-47); Hemoglobin 13.8 g/dL (12.0-16.0); Immature Granulocytes # (auto) 0.02 K/uL (0.00-0.02); Immature Granulocytes % (auto) 0.2 %; Lymphocytes # (auto) 3.76 K/uL (1.2-3.4); Lymphocytes % (auto) 33.7 %; Mean Corpuscular Hemoglobin 32.6 pg (25-34); Mean Corpuscular Hgb Conc 31.7 g/dL (32-36); Mean Corpuscular Volume 103.1 fL (80-100); Mean Platelet Volume 10.5 fL (7.4-10.4); Monocytes # (auto) 1.12 K/uL (0.11-0.59); Neutrophils # (auto) 6.21 K/uL (1.4-6.5); Neutrophils % (auto) 55.6 %; Platelet Count 159 K/uL (130-400); RDW Coefficient of Variation 13.4 % (11.5-14.5); RDW Standard Deviation 50.6 fL (36.4-46.3); Red Blood Count 4.23 M/uL (4.2-5.4); White Blood Count 11.16 K/uL (4.8-10.8)
[2019-04-30 13:58] LABS: Albumin Level 3.2 gm/dl (3.4-5.0); BUN Creatinine Ratio 20.3 (10-20); Calcium 8.5 mg/dl (8.5-10.1); Creatinine Clr Calc Pharmacy 57.4 ml/min; Est GFR (Non-African American) 44.8
[2019-04-30 14:07] LABS: Albumin Globulin Ratio 0.9 (0.9-2); Bilirubin,Total 0.2 mg/dl (0.2-1); Creatine Kinase MB 1.7 ng/ml (0.5-3.6); Globulin 3.4 gm/dl (2.5-4.0); Total Protein 6.6 gm/dl (6.4-8.2); Troponin I 0.046 ng/ml (0-0.045)
[2019-04-30] MEDS ORDERED: LORazepam 0.5 MG TAB PO STA (14:14)
[2019-04-30] MEDS ORDERED: OPTIRAY 320 125ml IV PRN (14:41)
--- NOTE | 2019-04-30 14:55 | CT Scan Report ---
CT angio chest PE protocol CT DOSE: 712.87 mGy.cm HISTORY: Chest pain PE TECHNIQUE: Multiaxial CT images of the chest were performed following the intravenous administration of contrast to evaluate the pulmonary arteries. Maximal intensity projection images were also obtaine d. A dose lowering technique was utilized adhering to the principles of ALARA. COMPARISON STUDY: 04/10/2019 FINDINGS: Pulmonary arterial vasculature enhances appropriately. Moderate atherosclerotic change thoracic aorta. No evidence for pulmonary embolus. Mild dependent basilar atelectatic change. No well-defined focal i nfiltrate. Somewhat progressive circumferential thickening of the bulk of the thoracic esophagus. Esophagitis mu st be considered. Endoscopic evaluation is indicated. Limited evaluation of the upper abdomen is unremarkable IMPRESSION: 1. No evidence of pulmonary embolus. 2. Mild dependent basilar atelectatic change. 3. Mildly progressive thickening of the esophageal wall throughout the thoracic level. Esophagitis is considered with endoscopic evaluation suggested. The above report was generated using voice recognition software. It may contain grammatical, syntax or spelling errors. Electronically signed by: Ismael Salas M.D. 04/30/2019 2:53 PM
--- NOTE | 2019-04-30 15:52 | History & Physical Report ---
Date of Service April 30, 2019 Assessment & Plan (1) Acute exacerbation of chronic obstructive pulmonary disease (COPD): Pt is 68 y/o F with PMH II PE in 2013, COPD, chronic oxygen at 2 L nasal cannula, HTN, HLD, GERD, depression, anxiety, CKD III, lumbar radiculopathy, neuropathy presented to ER with complaint of SOB, nonproductive cough, increased wheezing X 2 weeks. Denies fever/chills. Started Prednisone taper 2 days ago with decreased cough, still significant wheezing and SOB. Self increased home oxygen to 6L via [place] for past week. In ER pt afebrile, P: 71, R: 22, BP: 154/58, 99% on 6L via NC. WBC: 11, Negative influenza swab, CO2: 33, BNP: 1421 CTA CHEST: No evidence of pulmonary embolus. Mild dependent basilar atelectatic change -Oxygen titrated back to pt's chronic 2L and sats at 98% -In ER given Solumedrol 125mg IV, magnesium 1gm, Duoneb -Continue chronic oxygen at 2L via NC with pulse ox goal 90-94% -Mucinex BID -Duonebs -Solumedrol 40mg QH -Azithromycin -Continue home inhalers, Singulair -CBC, BMP in am (2) Elevated troponin: Mildly elevated troponin: 0.046 No CP. H/O elevated troponin in past. Probable demand -Repeat EKG in am -Will trend troponin -Consider echo if troponin trending upward -Continue metoprolol, simvastatin (3) CKD (chronic kidney disease) stage 3, GFR 30-59 ml/min: Cr: 1.2. Baseline ~1.2 -Monitor renal functions -Avoid nephrotoxic agents when possible (4) Hypertension: -Continue metoprolol, lisinopril, lasix (5) Hyperlipidemia: -Continue simvastatin (6) GERD (gastroesophageal reflux disease): -Continue PPI (7) Depression: (8) Anxiety: -Continue citalopram, trazodone, ativan (9) Lumbar radiculopathy: -Continue amitriptyline, Lyrica (10) History of pulmonary embolism: in 2013 CTA Chest today negative for PE DVT Prophylaxis -Heparin SQ DNR/DNI as per discussion with pt Follows with Dr Garcia for routine care Pt was seen and care coordinated with Dr Montanez. See addendum History of Present Illness Chief Complaint: SOB Primary Care Provider: Rowena Garcia MD Pt is 68 y/o F with PMH II PE in 2014, COPD, chronic oxygen at 2 L nasal cannula, HTN, HLD, GERD, depression, anxiety, CKD III, lumbar radiculopathy, neuropathy presented to ER with complaint of SOB X 2 weeks. Patient reports had nonproductive cough, increased wheezing. Chronic rhinorrhea and denies any worsening. Reports PCP started on prednisone taper. Reports took 2 days prednisone of 50mg daily and reports feels cough has decreased. Still with SOB and wheezing. She self increased her oxygen to 6L for the past week. Patient reports upon increased to 6 L she felt increased pressure in her chest. Does not think it helped with her shortness of breath. Patient does not have home pulse ox.Patient denies any known fever or chills. She reports the past 2 weeks has been needing to use her albuterol inhaler 3 times a day which has relieved some shortness of breath and wheezing. Denies any ill contacts. Denies any chest pain. Reports had influenza vaccine this season. Denies recent antibiotic use. Reports chronic BLE edema and denies significant worsening. Denies fever/chills, diaphoresis, N/V/D/C, MCDANIELS, dizziness, syncope, vision changes, neck pain, orthopnea, palpitations, hemoptysis, sore throat, choking, otalgia, abdominal pain, paresthesias, weakness, extremity weakness, rashes, urinary symptoms. Allergies Allergy/AdvReac Type Severity Reaction Status Date / Time Uncoded Nonscreenable Allergy Unknown requests Uncoded 10/07/18 07:59 Allergen no narcotics Home Medications Home Medications Medication Instructions Recorded Confirmed Type albuterol sulfate [Ventolin HFA] 2 puff INHALATION QID PRN 10/07/18 04/30/19 History amitriptyline 25 mg PO HS 10/07/18 04/30/19 History citalopram [Celexa] 20 mg PO QAM 10/07/18 04/30/19 History docusate sodium 100 mg PO BID 10/07/18 04/30/19 History ergocalciferol (vitamin D2) 50,000 unit PO WK 10/07/18 04/30/19 History fluticasone propionate 2 spray INTRANASAL DAILY PRN 10/07/18 04/30/19 History furosemide [Lasix] 20 mg PO QAM 10/07/18 04/30/19 History lisinopril 5 mg PO QAM 10/07/18 04/30/19 History lorazepam [Ativan] 0.5 mg PO TID 10/07/18 04/30/19 History montelukast [Singulair] 10 mg PO PM 10/07/18 04/30/19 History pantoprazole 40 mg PO QAM 10/07/18 04/30/19 History polyethylene glycol 3350 [Miralax] 17 g PO DAILY PRN 10/07/18 04/30/19 History pregabalin [Lyrica] 25 mg PO TID 10/07/18 04/30/19 History pregabalin [Lyrica] 100 mg PO TID 10/07/18 04/30/19 History sennosides [Senokot] 8.6 mg PO BID PRN 10/07/18 04/30/19 History simvastatin [Zocor] 40 mg PO HS 10/07/18 04/30/19 History trazodone 50 mg PO HS 10/07/18 04/30/19 History Oxygen Home #1 ea 10/10/18 04/30/19 Rx prednisone 10 mg PO UD #30 tabs 10/10/18 04/30/19 Rx diclofenac sodium 2 g TOPICAL TID PRN 04/30/19 04/30/19 History metoprolol succinate 25 mg PO DAILY 04/30/19 04/30/19 History mometasone-formoterol [Dulera] 2 puff INHALATION BID 04/30/19 04/30/19 History umeclidinium [Incruse Ellipta] 1 inh INHALATION DAILY 04/30/19 04/30/19 History Past Med/Surg History Medical History (Updated 04/30/19 @ 15:55 by Aparna Valdez PA-C) Anxiety CKD (chronic kidney disease) stage 3, GFR 30-59 ml/min COPD (chronic obstructive pulmonary disease) (Chronic) Depression Diastolic CHF due to valvular disease Elevated troponin (Resolved) GERD (gastroesophageal reflux disease) History of pulmonary embolism Hyperlipidemia Hypertension (Chronic) Lumbar radiculopathy Surgical History (Updated 04/30/19 @ 15:56 by Aparna Valdez PA-C) History of cholecystectomy History of hysterectomy Family History (Updated 04/30/19 @ 15:56 by Aparna Valdez PA-C) Other Cancer Social History Preferred Language: French Communication Ability: Effective Ec Teacher Required: No Beliefs That Will Affect Care: None marital status: / Current Living Situation: Alone current occupational status: retired Other Information That Helps Us Care for You: No Feels Safe at Home: Yes Safety Concerns: Feels Safe At This Time Smoking Status: Former smoker Tobacco Type: cigarettes ; Cigarettes Per Day: 20 ; Do You Dip or Chew Tobacco: No ; Smoking End Date: 2007 ; Second Hand Exposure: No ; Tobacco Cessation Education Requested by Patient: No Hx Alcohol Use: No Hx Substance Use: No Review of Systems Review of Systems: All systems reviewed & are unremarkable except as noted in HPI & below Physical Exam Physical Exam: General: no distress, obese Head: normocephalic, atraumatic Eyes: PERRL, EOM's intact, conjunctiva non-injected, anicteric ENT: normal inspection external ears, nose, mucous membranes moist Neck: supple, trachea midline Lungs:no respiratory distress on 2L oxygen NC, O2 sats 98%, +diffuse wheezing throughout CV: RRR, no murmur, 1+ pretibial edema Abd: normal BS, soft, protuberant, non-tender Ext: no cyanosis, no calf tenderness Neuro: A&O x 3, no focal deficits noted, normal affect Skin: warm, dry Results & Data Vital Signs (Past 12 Hours) Vital Signs Temp Pulse Pulse Resp BP BP Pulse Ox 04/30/19 15:38 75 17 150/60 H 97 04/30/19 13:47 78 20 133/73 97 04/30/19 12:30 70 24 100 04/30/19 12:21 37.1 C 71 22 154/58 H 99 Laboratory Results Short CBC 04/30/19 Range/Units 13:30 WBC 11.16 H (4.8-10.8) K/uL Hgb 13.8 (12.0-16.0) g/dL Hct 43.6 (37-47) % Plt Count 159 (130-400) K/uL BMP 12/09/19 13:30 Sodium 136 Potassium 4.0 Chloride 100 Carbon Dioxide 33 H BUN 25 H Creatinine 1.22 H Glucose 112 H Calcium 8.5 Cardiac Enzymes 04/30/19 04/30/19 Range/Units 13:30 13:30 Total Creatine Kinase 42 Cancelled (26-192) U/L CK-MB (CK-2) 1.7 Cancelled (0.5-3.6) ng/ml Troponin I 0.046 H* (0-0.045) ng/ml Liver Function 04/30/19 Range/Units 13:30 Total Bilirubin 0.2 (0.2-1) mg/dl AST 20 (15-37) U/L ALT 30 (12-78) U/L Alkaline Phosphatase 63 (45-117) U/L Albumin 3.2 L (3.4-5.0) gm/dl Diagnostic Findings CXR: IMPRESSION: Emphysematous change. No focal infiltrate. CTA CHEST: IMPRESSION: 1. No evidence of pulmonary embolus. 2. Mild dependent basilar atelectatic change. 3. Mildly progressive thickening of the esophageal wall throughout the thoracic level. Esophagitis is considered with endoscopic evaluation suggested. ECG Rate (beats per minute): 71 Rhythm: normal sinus Change: no significant change Code Status & VTE Plan VTE Prophylaxis Plan VTE Prophylaxis will be ordered: Yes Supervising Physician Co-Signing Physician Notes I have seen and examined the patient and have discussed the case with the provider above. I agree with the assessment and plan as stated with the following exceptions. 68 yo F with COPD on continuous oxygen supplementation (2L) at home, resents with worsening shortness of breath and increased oxygen needs. She has significant wheezing on exam but is not working to breathe on 6L via [place]. States her throat is sore from the oxygen. Otherwise denies much cough. Reports some chest pressure that is constant. We discussed the CT findings of esophageal thickening and she denies any heartburn. She states she had an ulcer in the past, however. She takes protonix regularly. Physical exam reveals an obese female in no acute distress. She has minimal conversational dyspnea noted, and some significant congestion, needing to clear her throat multiple times. Wheezing is present throughout all lung manrique. 3/6 CASSI heard on cardiac exam. Cannot appreciate S1/2 through all the adventitial sounds from the lungs and upper airways. Regular rate. Extremities are warm and well- perfused and there is no gross focal neuromuscular deficit although she is deconditioned. No peripheral edema. Hypoxia likely 2/2 COPD exacerbation. No clear infectious symptoms present. Cont azithro, solumedrol and scheduled nebs. Trend trop which is mildly elevated, morphine 4mg now for chest pain. Also discussed with her that GI cocktail and/or nitro are options available to try on her for persistent chest pain and to let her nurse know if this was the case. She verbalized understanding with intent to comply. Tarik, DO
[2019-04-30 16:19] LABS: Influenza A virus by PCR Neg for Influ A (Neg); Influenza B virus by PCR Neg for Influ B (Neg)
[2019-04-30] MEDS ORDERED: ACETAMINOPHEN 325 MG TAB PO PRN (16:58)
[2019-04-30] MEDS ORDERED: SENNA 8.6 MG TAB PO PRN (16:58)
[2019-04-30] MEDS ORDERED: DICLOFENAC SOD 1% GEL 100 GM TUBE EXT PRN (16:58)
[2019-04-30] MEDS ORDERED: FLUTICASONE PROPIONATE NA SPR 16 GM BTL NAE PRN (16:58)
[2019-04-30] MEDS ORDERED: POLYETHYLENE (MIRALAX) 17 GM PACK PO PRN (16:58)
[2019-04-30] MEDS: AZITHROMYCIN 500 MG in DEXTROSE 5% 250 ML IV SCH (18:48)
[2019-04-30] MEDS: methylPREDNISolone 40 MG in SYRINGE 0 ML IV SCH (18:49)
[2019-04-30] MEDS ORDERED: MoRPHine SULFATE 4 MG/ML 1 ML CARP\\VIAL IV STA (18:55)
[2019-04-30] MEDS ORDERED: ALUMINUM/MAGNESIUM SUSP 72 ML, LIDOCAINE HCL VISCOUS 2% 24 ML, BARCODE IDENTIFIER 1 EA PO PRN (18:55)
[2019-04-30] MEDS ORDERED: MoRPHine SULFATE 2 MG/ML CARP IV PRN (18:55)
[2019-04-30] MEDS ORDERED: NITROGLYCERIN SL 0.4 MG/TAB TAB SL PRN (18:55)
[2019-04-30] MEDS: ALBUT/IPRATROP 3MG/0.5MG NEB 3 ML VIAL NEB SCH (19:55)
[2019-04-30] MEDS: LORazepam 0.5 MG TAB PO SCH (20:37)
[2019-04-30] MEDS: PREGABALIN 100 MG CAP PO SCH (20:37)
[2019-04-30] MEDS: TRAZODONE HCL 50 MG TAB PO SCH (20:38)
[2019-04-30] MEDS: AMITRIPTYLINE HCL 25 MG TAB PO SCH (20:38)
[2019-04-30] MEDS: DOCUSATE SODIUM 100 MG CAP PO SCH (20:38)
[2019-04-30] MEDS: guaiFENesin 600 MG TABCR PO SCH (20:39)
[2019-04-30] MEDS: SIMVASTATIN 40 MG TAB PO SCH (20:39)
[2019-04-30] MEDS: MONTELUKAST SODIUM 10 MG TABLET PO SCH (20:40)
[2019-04-30] MEDS: PREGABALIN 25 MG CAP PO SCH (21:30)
[2019-04-30] MEDS: HEPARIN SOD 5,000 UNIT/0.5 ML VIAL SQ SCH (22:09)
[2019-05-01] MEDS: methylPREDNISolone 40 MG in SYRINGE 0 ML IV SCH ×3 (01:54→17:52)
[2019-05-01] MEDS: HEPARIN SOD 5,000 UNIT/0.5 ML VIAL SQ SCH ×3 (05:41→21:22)
[2019-05-01 06:51] LABS: Hematocrit (blood only) 37.5 % (37-47); Hemoglobin 11.9 g/dL (12.0-16.0); Mean Corpuscular Hemoglobin 32.2 pg (25-34); Mean Corpuscular Hgb Conc 31.7 g/dL (32-36); Mean Corpuscular Volume 101.4 fL (80-100); Mean Platelet Volume 10.7 fL (7.4-10.4); Platelet Count 155 K/uL (130-400); RDW Coefficient of Variation 13.1 % (11.5-14.5); RDW Standard Deviation 48.3 fL (36.4-46.3); White Blood Count 4.96 K/uL (4.8-10.8)
[2019-05-01 07:14] LABS: BUN Creatinine Ratio 23.1 (10-20); Calcium 8.5 mg/dl (8.5-10.1); Creatinine Clr Calc Pharmacy 58.6 ml/min; Est GFR (African American) 58.9; Est GFR (Non-African American) 50.8; Potassium 4.7 mmol/L (3.5-5.1)
[2019-05-01] MEDS: ALBUT/IPRATROP 3MG/0.5MG NEB 3 ML VIAL NEB SCH ×4 (07:22→19:37)
[2019-05-01] MEDS: DOCUSATE SODIUM 100 MG CAP PO SCH ×2 (08:32→20:46)
[2019-05-01] MEDS: PANTOprazole 40 MG TAB PO SCH (08:33)
[2019-05-01] MEDS: guaiFENesin 600 MG TABCR PO SCH ×2 (08:33→20:48)
[2019-05-01] MEDS: CITALOPRAM 20 MG TAB PO SCH (08:33)
[2019-05-01] MEDS: METOPROLOL SUCC 25MG EXT REL TAB PO SCH (08:34)
[2019-05-01] MEDS: lisinopriL 5 MG TAB PO SCH (08:34)
[2019-05-01] MEDS: FUROSEMIDE 20 MG TAB PO SCH (08:34)
[2019-05-01] MEDS: PREGABALIN 25 MG CAP PO SCH ×3 (08:38→20:46)
[2019-05-01] MEDS: PREGABALIN 100 MG CAP PO SCH ×3 (08:38→20:46)
[2019-05-01] MEDS: LORazepam 0.5 MG TAB PO SCH ×3 (08:38→20:46)
[2019-05-01] MEDS: AZITHROMYCIN 500 MG in DEXTROSE 5% 250 ML IV SCH (17:57)
--- NOTE | 2019-05-01 18:04 | Hospitalist Progress Note ---
Date of Service May 01, 2019 Assessment & Plan (1) Acute exacerbation of chronic obstructive pulmonary disease (COPD): Pt is 68 y/o F with PMH II PE in 2013, COPD, chronic oxygen at 2 L nasal cannula, HTN, HLD, GERD, depression, anxiety, CKD III, lumbar radiculopathy, neuropathy presented to ER with complaint of SOB, nonproductive cough, increased wheezing X 2 weeks. Denies fever/chills. Started Prednisone taper 2 days ago with decreased cough, still significant wheezing and SOB. Self increased home oxygen to 6L via [place] for past week. In ER pt afebrile, P: 71, R: 22, BP: 154/58, 99% on 6L via [place]. WBC: 11, Negative influenza swab, CO2: 33, BNP: 1421 CTA CHEST: No evidence of pulmonary embolus. Mild dependent basilar atelectatic change -Oxygen titrated back to pt's chronic 2L and sats at 98% -In ER given Solumedrol 125mg IV, magnesium 1gm, Duoneb -Continue chronic oxygen at 2L via NC with pulse ox goal 90-94% -Mucinex BID -Duonebs -Solumedrol 40mg QH -Azithromycin -Continue home inhalers, Singulair -cont. to monitor CBC, BMP (2) Elevated troponin: Mildly elevated troponin: 0.046 No CP. H/O elevated troponin in past. Probable demand -downtrended -Consider echo if troponin trending upward or any new incr. CP -Continue metoprolol, simvastatin (3) CKD (chronic kidney disease) stage 3, GFR 30-59 ml/min: Cr: 1.2. Baseline ~1.2 -Monitor renal functions -Avoid nephrotoxic agents when possible (4) Hypertension: -Continue metoprolol, lisinopril, lasix (5) Hyperlipidemia: -Continue simvastatin (6) GERD (gastroesophageal reflux disease): -Continue PPI (7) Depression: (8) Anxiety: -Continue citalopram, trazodone, ativan (9) Lumbar radiculopathy: -Continue amitriptyline, Lyrica (10) History of pulmonary embolism: in 2013 CTA Chest today negative for PE DVT Prophylaxis -Heparin SQ DNR/DNI as per discussion with pt Follows with Dr Garcia for routine care Subjective Pt is lying in bed in no acute distress, using suppl. O2, but otherwise able to speak in full sentences and is cooperative with exam. Denies fever, chills, abd, pain, nausea, vomiting. Says she has sore throat from using O2 and increased cough since starting treatment. Review of Systems Review of Systems: All systems reviewed & are unremarkable except as noted in HPI & below Constitutional: no fever and no chills Respiratory: no cough and no dyspnea Cardiovascular: + dyspnea at rest; no radiating jaw, neck or arm pain and no palpitations Gastrointestinal: no abdominal pain, no nausea and no vomiting Physical Exam Physical Exam: General: Elderly obese female, lying in bed in no acute distress, on suppl. O2 Head: normocephalic, atraumatic Eyes: PERRL, EOMI, conjunctiva non-injected, anicteric sclerae ENT: normal inspection external ears, nose, mucous membranes moist Neck: supple, trachea midline Lungs:no respiratory distress on 2L oxygen NC, +diffuse rhonchi and mild wheezing throughout CV: RRR, soft syst. murmur Abd: normal BS, soft,non-tender, nondistended, no guarding Ext: no cyanosis, no calf tenderness, moves all 4 extremities spontaneously Neuro/Psych: A&O x 3, no facial asymmetry, speech fluent, no focal deficits noted, normal affect, moves all 4 extremities spontaneously Skin: warm, dry Results & Data Vital Signs (Past 12 Hours) Vital Signs Temp Pulse Pulse Resp BP BP Pulse Ox 05/01/19 15:30 68 05/01/19 14:56 36.6 C 79 20 126/77 97 05/01/19 11:26 36.8 C 71 20 154/65 H 98 05/01/19 11:15 71 19 98 05/01/19 08:00 71 05/01/19 07:24 91 H 18 91 05/01/19 07:22 36.9 C 73 18 149/67 H 94 Laboratory Results 05/01/19 05/01/19 05/01/19 Range/Units 06:15 06:15 00:48 WBC 4.96 D (4.8-10.8) K/uL RBC 3.70 L (4.2-5.4) M/uL Hgb 11.9 L (12.0-16.0) g/dL Hct 37.5 (37-47) % MCV 101.4 H (80-100) fL MCH 32.2 (25-34) pg MCHC 31.7 L (32-36) g/dL RDW Std Deviation 48.3 H (36.4-46.3) fL RDW Coeff of Leo 13.1 (11.5-14.5) % Plt Count 155 (130-400) K/uL MPV 10.7 H (7.4-10.4) fL Sodium 134 L (136-145) mmol/L Potassium 4.7 D (3.5-5.1) mmol/L Chloride 100 (98-107) mmol/L Carbon Dioxide 31 (21-32) mmol/L Anion Gap 3.0 (3-11) BUN 25 H (7-18) mg/dl Creatinine 1.10 (0.6-1.2) mg/dl Est Cr Clr Drug Dosing 58.6 ml/min Est GFR ( Amer) 58.9 Est GFR (Non-Af Amer) 50.8 BUN/Creatinine Ratio 23.1 H (10-20) Glucose 132 H (70-99) mg/dl Calcium 8.5 (8.5-10.1) mg/dl Troponin I 0.033 (0-0.045) ng/ml 04/30/19 Range/Units 19:15 WBC (4.8-10.8) K/uL RBC (4.2-5.4) M/uL Hgb (12.0-16.0) g/dL Hct (37-47) % MCV (80-100) fL MCH (25-34) pg MCHC (32-36) g/dL RDW Std Deviation (36.4-46.3) fL RDW Coeff of Leo (11.5-14.5) % Plt Count (130-400) K/uL MPV (7.4-10.4) fL Sodium (136-145) mmol/L Potassium (3.5-5.1) mmol/L Chloride (98-107) mmol/L Carbon Dioxide (21-32) mmol/L Anion Gap (3-11) BUN (7-18) mg/dl Creatinine (0.6-1.2) mg/dl Est Cr Clr Drug Dosing ml/min Est GFR ( Amer) Est GFR (Non-Af Amer) BUN/Creatinine Ratio (10-20) Glucose (70-99) mg/dl Calcium (8.5-10.1) mg/dl Troponin I 0.035 (0-0.045) ng/ml Medications Administered Current Inpatient Medications Acetaminophen (Tylenol) 650 mg PO Q4H PRN PRN Reason: Pain or Fever Stop: 05/30/19 16:57 Last Admin: 05/01/19 12:57 Dose: 650 mg Documented by: Albuterol (Duoneb) 3 ml NEB QIDR [facility] Stop: 05/30/19 18:59 Last Admin: 05/01/19 14:56 Dose: 3 ml Documented by: Amitriptyline HCl (Elavil) 25 mg PO HS [facility] Stop: 05/30/19 20:59 Last Admin: 04/30/19 20:38 Dose: 25 mg Documented by: Citalopram Hydrobromide (Celexa) 20 mg PO QAM [facility] Stop: 05/31/19 08:59 Last Admin: 05/01/19 08:33 Dose: 20 mg Documented by: Al Hydrox/Mg Hydrox/Simethicone 72 ml/ Lidocaine HCl 24 ml/ [employer] 1 ea 0 ml PO Q6H PRN PRN Reason: heartburn/chest pain Stop: 05/30/19 18:54 Diclofenac Sodium (Voltaren 1% Top) 2 gm EXT TID PRN PRN Reason: Pain Stop: 05/30/19 16:57 Docusate Sodium (Colace) 100 mg PO BID [facility] Stop: 05/30/19 20:59 Last Admin: 05/01/19 08:32 Dose: 100 mg Documented by: Fluticasone Propionate (Flonase) 2 sprays [place] DAILY PRN PRN Reason: Allergy Symptoms Stop: 05/30/19 16:57 Furosemide (Lasix) 20 mg PO QAM [facility] Stop: 05/31/19 08:59 Last Admin: 05/01/19 08:34 Dose: 20 mg Documented by: Guaifenesin (Mucinex) 600 mg PO Q12 [facility] Stop: 05/30/19 20:59 Last Admin: 05/01/19 08:33 Dose: 600 mg Documented by: Heparin Sodium (Porcine) (Heparin Sodium (Porcine)) 5,000 units SQ Q8 [facility] Stop: 05/30/19 21:59 Last Admin: 05/01/19 12:59 Dose: 5,000 units Documented by: Azithromycin 500 mg/ Dextrose 255 mls @ 125 mls/hr IV Q24H [facility] Stop: 05/07/19 17:59 Last Admin: 05/01/19 17:57 Dose: 125 mls/hr Documented by: Methylprednisolone 40 mg/ (Syringe) 0.64 mls @ 1.5 mls/min IV Q8H [facility] Stop: 05/30/19 17:59 Last Admin: 05/01/19 17:52 Dose: 1.5 mls/min Documented by: Lisinopril (Zestril) 5 mg PO QAM [facility] Stop: 05/31/19 08:59 Last Admin: 05/01/19 08:34 Dose: 5 mg Documented by: Lorazepam (Ativan) 0.5 mg PO TID [facility] Stop: 05/30/19 20:59 Last Admin: 05/01/19 12:57 Dose: 0.5 mg Documented by: Metoprolol Succinate (Toprol Xl) 25 mg PO DAILY [facility] Stop: 05/31/19 08:59 Last Admin: 05/01/19 08:34 Dose: 25 mg Documented by: Miscellaneous (Order Awaiting Action) 1 ea N/A QS [facility] Stop: 05/31/19 00:00 Last Admin: 05/01/19 15:42 Dose: Not Given Documented by: Miscellaneous (Order Awaiting Action) 1 ea N/A QS [facility] Stop: 05/31/19 00:00 Last Admin: 05/01/19 15:42 Dose: Not Given Documented by: Montelukast Sodium (Singulair) 10 mg PO PM [facility] Stop: 05/30/19 20:59 Last Admin: 04/30/19 20:40 Dose: 10 mg Documented by: Morphine Sulfate (Morphine Sulfate) 2 mg IV Q2H PRN PRN Reason: Chest Pain Stop: 05/14/19 18:54 Last Admin: 04/30/19 19:16 Dose: 2 mg Documented by: Nitroglycerin (Nitrostat) 0.4 mg SL PRN PRN PRN Reason: Chest Pain Stop: 05/30/19 18:54 Pantoprazole Sodium (Protonix) 40 mg PO QAM [facility] Stop: 05/31/19 08:59 Last Admin: 05/01/19 08:33 Dose: 40 mg Documented by: Polyethylene Glycol (Miralax Powder Packet) 17 gm PO DAILY PRN PRN Reason: Constipation Stop: 05/30/19 16:57 Last Admin: 05/01/19 16:02 Dose: 17 gm Documented by: Pregabalin (Lyrica) 25 mg PO TID [facility] Stop: 05/30/19 20:59 Last Admin: 05/01/19 12:58 Dose: 25 mg Documented by: Pregabalin (Lyrica) 100 mg PO TID [facility] Stop: 05/30/19 20:59 Last Admin: 05/01/19 12:58 Dose: 100 mg Documented by: Sennosides (Senokot) 8.6 mg PO BID PRN PRN Reason: Constipation Stop: 05/30/19 16:57 Simvastatin (Zocor) [address] [facility] Stop: 05/30/19 20:59 Last Admin: 04/30/19 20:39 Dose: 40 mg Documented by: Trazodone HCl (Desyrel) [address] [facility] Stop: 05/30/19 20:59 Last Admin: 04/30/19 20:38 Dose: 50 mg Documented by:
--- NOTE | 2019-05-01 19:47 | Emergency Department Note ---
Entered by Syeda Edward acting as a scribe for Devan Cote MD History of Present Illness General Chief complaint: Shortness of Breath/Dyspnea Time Seen by Provider: 04/30/19 12:12 Source: patient History of Present Illness Provider complaint: Shortness of Breath/Dyspnea Onset (ago): week(s) 2 Location: chest Relieved By: + none Exacerbated By: + movement Associated symptoms: + cough The patient is a 68 year old female who presents to the Emergency Room with complaints of shortness of breath/dyspnea that began 2 weeks ago. The patient states her symptoms are exacerbated by movement and not relieved by anything specific. The patient reports experiencing a cough and was given a breathing treatment in the ambulance. The patient mentioned that she uses 6L of oxygen at home and last week was on steroids for pneumonia. Home Medications Home Medications Medication Instructions Recorded Confirmed Type albuterol sulfate [Ventolin HFA] 2 puff INHALATION QID PRN 10/07/18 04/30/19 History amitriptyline 25 mg PO HS 10/07/18 04/30/19 History citalopram [Celexa] 20 mg PO QAM 10/07/18 04/30/19 History docusate sodium 100 mg PO BID 10/07/18 04/30/19 History ergocalciferol (vitamin D2) 50,000 unit PO WK 10/07/18 04/30/19 History fluticasone propionate 2 spray INTRANASAL DAILY PRN 10/07/18 04/30/19 History furosemide [Lasix] 20 mg PO QAM 10/07/18 04/30/19 History lisinopril 5 mg PO QAM 10/07/18 04/30/19 History lorazepam [Ativan] 0.5 mg PO TID 10/07/18 04/30/19 History montelukast [Singulair] 10 mg PO PM 10/07/18 04/30/19 History pantoprazole 40 mg PO QAM 10/07/18 04/30/19 History polyethylene glycol 3350 [Miralax] 17 g PO DAILY PRN 10/07/18 04/30/19 History pregabalin [Lyrica] 25 mg PO TID 10/07/18 04/30/19 History pregabalin [Lyrica] 100 mg PO TID 10/07/18 04/30/19 History sennosides [Senokot] 8.6 mg PO BID PRN 10/07/18 04/30/19 History simvastatin [Zocor] 40 mg PO HS 10/07/18 04/30/19 History trazodone 50 mg PO HS 10/07/18 04/30/19 History Oxygen Home #1 ea 10/10/18 04/30/19 Rx prednisone 10 mg PO UD #30 tabs 10/10/18 04/30/19 Rx diclofenac sodium 2 g TOPICAL TID PRN 04/30/19 04/30/19 History metoprolol succinate 25 mg PO DAILY 04/30/19 04/30/19 History mometasone-formoterol [Dulera] 2 puff INHALATION BID 04/30/19 04/30/19 History umeclidinium [Incruse Ellipta] 1 inh INHALATION DAILY 04/30/19 04/30/19 History Allergies Allergy/AdvReac Type Severity Reaction Status Date / Time Uncoded Nonscreenable Allergy Unknown requests Uncoded 10/07/18 07:59 Allergen no narcotics Past Med/Surg History Medical History (Updated 05/01/19 @ 19:47 by Devan Ctoe MD) Anxiety CKD (chronic kidney disease) stage 3, GFR 30-59 ml/min COPD (chronic obstructive pulmonary disease) (Chronic) Depression Diastolic CHF due to valvular disease Elevated troponin (Resolved) GERD (gastroesophageal reflux disease) History of pulmonary embolism Hyperlipidemia Hypertension (Chronic) Lumbar radiculopathy Surgical History (Updated 04/30/19 @ 15:56 by Aparna Valdez PA-C) History of cholecystectomy History of hysterectomy Family History (Updated 04/30/19 @ 15:56 by Aparna Valdez PA-C) Other Cancer Social History Preferred Language: Japanese Communication Ability: Effective 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 and A total of 10 systems reviewed and were otherwise negative Physical Exam Vital Signs Vital Signs - 24 hr 04/30/19 12:21 04/30/19 12:30 04/30/19 13:47 Temperature 37.1 C Temperature Source Oral Pulse Rate 71 Pulse Rate [Right Apical] 70 78 Respiratory Rate 22 24 20 Respiratory Effort / Characteristics Non-Labored Spontaneous Spontaneous Non-Labored Respiratory Depth Normal Normal Blood Pressure 154/58 H Blood Pressure [Right Arm] 133/73 Blood Pressure Mean 90 Blood Pressure Mean [Right Arm] 93 Blood Pressure Position Lying Pulse Oximetry 99 100 97 Oxygen Delivery Method Nasal Cannula Nasal Cannula Nasal Cannula Oxygen Flow Rate 6 6 6 Sepsis Recent Fever Within 48 Hours No Sepsis Action Taken by Nursing No Action Required GENERAL: Awake, alert, well-appearing, in no acute distress HENT: Normocephalic, atraumatic. Oropharynx unremarkable. EYES: Normal conjunctiva. Sclera non-icteric. NECK: Supple. No nuchal rigidity. FROM. No JVD. RESPIRATORY: Bilateral wheezing present on exam. CARDIAC: Regular rate, normal rhythm. Extremities warm and well perfused. Pulses equal. ABDOMEN: Soft, non-distended. No tenderness to palpation. No rebound or guarding. No masses. RECTAL: Deferred. MUSCULOSKELETAL: Chest examination reveals no tenderness. The back is symmetrical on inspection without obvious abnormality. There is no CVA tenderness to palpation. No joint edema. LOWER EXTREMITIES: Calves are equal size bilaterally and non-tender. No edema. No discoloration. NEURO: Normal sensorium. No sensory or motor deficits noted. SKIN: No rash or jaundice noted. Course Course 1215: Past medical records reviewed. The patient was evaluated in room B03A. A complete history and physical exam was performed. 1421: I spoke with Aparna Osuna PA-C about the patient's case and Dr. Montanez-Hospitalist will accept the patient for further evaluation. Administered Medications Acetaminophen (Tylenol) 650 mg PO Q4H PRN PRN Reason: Pain or Fever Stop: 05/30/19 16:57 Last Admin: 05/01/19 12:57 Dose: 650 mg Documented by: [id number] Albuterol (Duoneb) 3 ml NEB QIDR [facility] Stop: 05/30/19 18:59 Last Admin: 05/01/19 19:37 Dose: 3 ml Documented by: [id number] Admin: 05/01/19 14:56 Dose: 3 ml Documented by: [id number] Admin: 05/01/19 11:13 Dose: 3 ml Documented by: [id number] Admin: 05/01/19 07:22 Dose: 3 ml Documented by: [id number] Admin: 04/30/19 19:55 Dose: 3 ml Documented by: [id number] Amitriptyline HCl (Elavil) 25 mg PO HS [facility] Stop: 05/30/19 20:59 Last Admin: 04/30/19 20:38 Dose: 25 mg Documented by: [id number] Citalopram Hydrobromide (Celexa) 20 mg PO QAM [facility] Stop: 05/31/19 08:59 Last Admin: 05/01/19 08:33 Dose: 20 mg Documented by: [id number] Docusate Sodium (Colace) 100 mg PO BID [facility] Stop: 05/30/19 20:59 Last Admin: 05/01/19 08:32 Dose: 100 mg Documented by: [id number] Admin: 04/30/19 20:38 Dose: 100 mg Documented by: [id number] Furosemide (Lasix) 20 mg PO QAM [facility] Stop: 05/31/19 08:59 Last Admin: 05/01/19 08:34 Dose: 20 mg Documented by: [id number] Guaifenesin (Mucinex) 600 mg PO Q12 [facility] Stop: 05/30/19 20:59 Last Admin: 05/01/19 08:33 Dose: 600 mg Documented by: [id number] Admin: 04/30/19 20:39 Dose: 600 mg Documented by: [id number] Heparin Sodium (Porcine) (Heparin Sodium (Porcine)) 5,000 units SQ Q8 [facility] Stop: 05/30/19 21:59 Last Admin: 05/01/19 12:59 Dose: 5,000 units Documented by: [id number] Cosigned by: [id number] Admin: 05/01/19 05:41 Dose: 5,000 units Documented by: [id number] Cosigned by: [id number] Admin: 04/30/19 22:09 Dose: 5,000 units Documented by: [id number] Cosigned by: [id number] Azithromycin 500 mg/ Dextrose 255 mls @ 125 mls/hr IV Q24H [facility] Stop: 05/07/19 17:59 Last Admin: 05/01/19 17:57 Dose: 125 mls/hr Documented by: [id number] Infusion: 04/30/19 21:55 Dose: 0 mls/hr Documented by: [id number] Admin: 04/30/19 18:48 Dose: 125 mls/hr Documented by: [id number] Methylprednisolone 40 mg/ (Syringe) 0.64 mls @ 1.5 mls/min IV Q8H [facility] Stop: 05/30/19 17:59 Last Admin: 05/01/19 17:52 Dose: 1.5 mls/min Documented by: [id number] Admin: 05/01/19 10:08 Dose: 1.5 mls/min Documented by: [id number] Admin: 05/01/19 01:54 Dose: 1.5 mls/min Documented by: [id number] Admin: 04/30/19 18:49 Dose: 1.5 mls/min Documented by: [id number] Lisinopril (Zestril) 5 mg PO QAM [facility] Stop: 05/31/19 08:59 Last Admin: 05/01/19 08:34 Dose: 5 mg Documented by: [id number] Lorazepam (Ativan) 0.5 mg PO TID [facility] Stop: 05/30/19 20:59 Last Admin: 05/01/19 12:57 Dose: 0.5 mg Documented by: [id number] Admin: 05/01/19 08:38 Dose: 0.5 mg Documented by: [id number] Admin: 04/30/19 20:37 Dose: 0.5 mg Documented by: [id number] Metoprolol Succinate (Toprol Xl) 25 mg PO DAILY [facility] Stop: 05/31/19 08:59 Last Admin: 05/01/19 08:34 Dose: 25 mg Documented by: [id number] Miscellaneous (Order Awaiting Action) 1 ea N/A QS [facility] Stop: 05/31/19 00:00 Last Admin: 05/01/19 15:42 Dose: Not Given Documented by: [id number] Admin: 05/01/19 08:32 Dose: Not Given Documented by: [id number] Admin: 04/30/19 23:00 Dose: Not Given Documented by: [id number] Miscellaneous (Order Awaiting Action) 1 ea N/A QS [facility] Stop: 05/31/19 00:00 Last Admin: 05/01/19 15:42 Dose: Not Given Documented by: [id number] Admin: 05/01/19 08:32 Dose: Not Given Documented by: [id number] Admin: 04/30/19 23:00 Dose: Not Given Documented by: [id number] Montelukast Sodium (Singulair) 10 mg PO PM [facility] Stop: 05/30/19 20:59 Last Admin: 04/30/19 20:40 Dose: 10 mg Documented by: [id number] Morphine Sulfate (Morphine Sulfate) 2 mg IV Q2H PRN PRN Reason: Chest Pain Stop: 05/14/19 18:54 Last Admin: 04/30/19 19:16 Dose: 2 mg Documented by: [id number] Pantoprazole Sodium (Protonix) 40 mg PO QAM [facility] Stop: 05/31/19 08:59 Last Admin: 05/01/19 08:33 Dose: 40 mg Documented by: [id number] Polyethylene Glycol (Miralax Powder Packet) 17 gm PO DAILY PRN PRN Reason: Constipation Stop: 05/30/19 16:57 Last Admin: 05/01/19 16:02 Dose: 17 gm Documented by: [id number] Pregabalin (Lyrica) 25 mg PO TID [facility] Stop: 05/30/19 20:59 Last Admin: 05/01/19 12:58 Dose: 25 mg Documented by: [id number] Admin: 05/01/19 08:38 Dose: 25 mg Documented by: [id number] Admin: 04/30/19 21:30 Dose: 25 mg Documented by: [id number] Pregabalin (Lyrica) 100 mg PO TID [facility] Stop: 05/30/19 20:59 Last Admin: 05/01/19 12:58 Dose: 100 mg Documented by: [id number] Admin: 05/01/19 08:38 Dose: 100 mg Documented by: [id number] Admin: 04/30/19 20:37 Dose: 100 mg Documented by: [id number] Simvastatin (Zocor) 40 mg PO [facility] Stop: 05/30/19 20:59 Last Admin: 04/30/19 20:39 Dose: 40 mg Documented by: [id number] Trazodone HCl (Desyrel) 50 mg PO [facility] Stop: 01/08/20 20:59 Last Admin: 04/30/19 20:38 Dose: 50 mg Documented by: [id number] Discontinued Medications Albuterol (Duoneb) 12 ml NEB ONE ONE Stop: 04/30/19 12:16 Last Admin: 04/30/19 12:28 Dose: 12 ml Documented by: [id number] Magnesium Sulfate/Dextrose (Magnesium Sulfate / D5w) 1 gm in 100 mls @ 100 mls/hr IV ONE ONE Stop: 04/30/19 13:14 Last Infusion: 04/30/19 14:18 Dose: 0 mls/hr Documented by: [id number] Admin: 04/30/19 13:12 Dose: 100 mls/hr Documented by: [id number] Methylprednisolone 60 mg/ (Syringe) 1.96 mls @ 1.5 mls/min IV NOW STA Stop: 04/30/19 12:18 Last Admin: 04/30/19 13:50 Dose: Not Given Documented by: [id number] Ioversol (Optiray 320 125ml) 117 ml IV ONCE PRN PRN Reason: Interaction Checking Stop: 05/04/19 14:40 Last Admin: 04/30/19 14:41 Dose: 117 ml Documented by: [id number] Lorazepam (Ativan) 0.5 mg PO NOW STA Stop: 04/30/19 14:15 Last Admin: 04/30/19 14:24 Dose: 0.5 mg Documented by: [id number] Methylprednisolone (Solumedrol) 125 mg IV NOW STA Stop: 04/30/19 12:16 Last Admin: 04/30/19 13:12 Dose: 125 mg Documented by: [id number] Morphine Sulfate (Morphine Sulfate) 4 mg IV NOW STA Stop: 04/30/19 18:56 Last Admin: 04/30/19 20:37 Dose: 4 mg Documented by: [id number] Medical Decision Making Differential Diagnosis Differential diagnosis: Etiologies such as infections, reactive airway disease, COPD, pneumonia, pleural effusion, pulmonary edema, ARDS, pneumothorax, CHF, cardiac ischemia, cardiac tamponade, dysrhythmia, anemia, pulmonary embolism, musculoskeletal, gastrointestinal process, as well as others were entertained. Medical Records Attestation: I reviewed the patient's medical records. Home Medications Current Medication List: was personally reviewed by me Laboratory Data Attestation: I reviewed the patient's lab results. Result diagrams: 05/01/19 06:15 05/01/19 06:15 Lab Results 04/30/19 04/30/19 04/30/19 Range/Units 13:30 13:30 13:30 WBC 11.16 H (4.8-10.8) K/uL RBC 4.23 (4.2-5.4) M/uL Hgb 13.8 (12.0-16.0) g/dL Hct 43.6 (37-47) % MCV 103.1 H (80-100) fL MCH 32.6 (25-34) pg MCHC 31.7 L (32-36) g/dL RDW Std Deviation 50.6 H (36.4-46.3) fL RDW Coeff of Leo 13.4 (11.5-14.5) % Plt Count 159 (130-400) K/uL MPV 10.5 H (7.4-10.4) fL Immature Gran % (Auto) 0.2 % Neut % (Auto) 55.6 % Lymph % (Auto) 33.7 % Collier % (Auto) 10.0 % Eos % (Auto) 0.4 % Baso % (Auto) 0.1 % Immature Gran # (Auto) 0.02 (0.00-0.02) K/uL Neut # (Auto) 6.21 (1.4-6.5) K/uL Lymph # (Auto) 3.76 H (1.2-3.4) K/uL Collier # (Auto) 1.12 H (0.11-0.59) K/uL Eos # (Auto) 0.04 (0-0.5) K/uL Baso # (Auto) 0.01 (0-0.2) K/uL Sodium 136 (136-145) mmol/L Potassium 4.0 (3.5-5.1) mmol/L Chloride 100 (98-107) mmol/L Carbon Dioxide 33 H (21-32) mmol/L Anion Gap 3.0 (3-11) BUN 25 H (7-18) mg/dl Creatinine 1.22 H (0.6-1.2) mg/dl Est Cr Clr Drug Dosing 57.4 ml/min Est GFR ( Amer) 52.0 Est GFR (Non-Af Amer) 44.8 BUN/Creatinine Ratio 20.3 H (10-20) Glucose 112 H (70-99) mg/dl Calcium 8.5 (8.5-10.1) mg/dl Total Bilirubin 0.2 (0.2-1) mg/dl AST 20 (15-37) U/L ALT 30 (12-78) U/L Alkaline Phosphatase 63 (45-117) U/L Total Creatine Kinase 42 Cancelled (26-192) U/L CK-MB (CK-2) 1.7 Cancelled (0.5-3.6) ng/ml CK/CKMB % Calc 4.0 H Cancelled (0-3.0) Troponin I 0.046 H* (0-0.045) ng/ml NT-Pro-B Natriuret Pep 1421 H (0-900) pg/ml Total Protein 6.6 (6.4-8.2) gm/dl Albumin 3.2 L (3.4-5.0) gm/dl Globulin 3.4 (2.5-4.0) gm/dl Albumin/Globulin Ratio 0.9 (0.9-2) Lipase 189 (73-393) U/L Imaging Data Radiologist's Impression: Radiology results as stated below per my review and the radiologist's interpretation: XR chest 1V portable CLINICAL HISTORY: Chest Pain pain COMPARISON STUDY: 10/07/2018 FINDINGS: Emphysematous change. Parenchymal prominence both lung bases considered chronic. No well-defined acute infiltrate. IMPRESSION: Emphysematous change. No focal infiltrate. The above report was generated using voice recognition software. It may contain grammatical, syntax or spelling errors. Electronically signed by: Ismael Salas M.D. 04/30/2019 12:[address] angio chest PE protocol CT DOSE: 712.87 mGy.cm HISTORY: Chest pain PE TECHNIQUE: Multiaxial CT images of the chest were performed following the intravenous administration of contrast to evaluate the pulmonary arteries. Maximal intensity projection images were also obtained. A dose lowering technique was utilized adhering to the principles of ALARA. COMPARISON STUDY: 04/10/2019 FINDINGS: Pulmonary arterial vasculature enhances appropriately. Moderate atherosclerotic change thoracic aorta. No evidence for pulmonary embolus. Mild dependent basilar atelectatic change. No well-defined focal infiltrate. Somewhat progressive circumferential thickening of the bulk of the thoracic esophagus. Esophagitis must be considered. Endoscopic evaluation is indicated. Limited evaluation of the upper abdomen is unremarkable IMPRESSION: 1. No evidence of pulmonary embolus. 2. Mild dependent basilar atelectatic change. 3. Mildly progressive thickening of the esophageal wall throughout the thoracic level. Esophagitis is considered with endoscopic evaluation suggested. The above report was generated using voice recognition software. It may contain grammatical, syntax or spelling errors. Electronically signed by: Ismael Salas M.D. 04/30/2019 2:53 PM ECG Data Attestation: I personally reviewed and interpreted this ECG as follows: Indication: + SOB/dyspnea Rate (beats per minute): 71 Rhythm: + normal sinus ECG Intervals/blocks: + Normal QT-c (QTC 430) ECG ST segments: + Normal ST segments ECG Findings: + Other (Normal axis) Blood Pressure Blood Pressure Findings: Elevated blood pressure Blood Pressure Disposition: further management by hospitalist MDM Narrative This is a 68-year-old female who presents emergency department with increased oxygen consumption. The patient does have a history of congestive heart failure as well as COPD. The patient was sent for CAT scan of the chest which does not show any evidence of a PE. She was given an hour-long breathing treatment here in the emergency department and started on Solu-Medrol. Because of the increased oxygen demand I did discuss the case with the hospitalist service who did agree to admit the patient. Patient was in agreement with the treatment plan. Impression & Plan Acute exacerbation of chronic obstructive pulmonary disease (COPD), Non-ST elevation [place] (NSTEMI) Discharge Plan Visit Data *Final* Discharge Date/Time: 04/30/19 16:43 Chief Complaint: Shortness of Breath/Dyspnea ED Provider: Devan Cote Discharge Problem: Acute exacerbation of chronic obstructive pulmonary disease (COPD), Non-ST elevation FL (NSTEMI) Patient Disposition: Home - Self-Care Discharge Instructions Interventions: ED Discharge Assessment Last Done: 04/30/19 16:43 The scribe's documentation has been prepared under my direction and personally reviewed by me in its entirety. I confirm that the note above accurately reflects all work, treatment, procedures, and medical decision making performed by me.
[2019-05-01] MEDS: MONTELUKAST SODIUM 10 MG TABLET PO SCH (20:46)
[2019-05-01] MEDS: SIMVASTATIN 40 MG TAB PO SCH (20:47)
[2019-05-01] MEDS: TRAZODONE HCL 50 MG TAB PO SCH (20:48)
[2019-05-01] MEDS: AMITRIPTYLINE HCL 25 MG TAB PO SCH (20:48)
[2019-05-02] MEDS: methylPREDNISolone 40 MG in SYRINGE 0 ML IV SCH ×3 (02:01→20:43)
[2019-05-02] MEDS: HEPARIN SOD 5,000 UNIT/0.5 ML VIAL SQ SCH ×3 (05:55→20:46)
[2019-05-02] MEDS: ALBUT/IPRATROP 3MG/0.5MG NEB 3 ML VIAL NEB SCH ×4 (07:09→22:25)
[2019-05-02] MEDS ORDERED: ACETAMINOPHEN 325 MG TAB PO PRN (07:51)
[2019-05-02 08:12] LABS: Hematocrit (blood only) 38.6 % (37-47); Hemoglobin 12.5 g/dL (12.0-16.0); Immature Granulocytes # (auto) 0.03 K/uL (0.00-0.02); Immature Granulocytes % (auto) 0.5 %; Lymphocytes # (auto) 0.55 K/uL (1.2-3.4); Lymphocytes % (auto) 9.8 %; Mean Corpuscular Hemoglobin 32.3 pg (25-34); Mean Corpuscular Hgb Conc 32.4 g/dL (32-36); Mean Corpuscular Volume 99.7 fL (80-100); Mean Platelet Volume 10.9 fL (7.4-10.4); Monocytes % (auto) 5.4 %; Neutrophils # (auto) 4.72 K/uL (1.4-6.5); Neutrophils % (auto) 84.3 %; Platelet Count 154 K/uL (130-400); RDW Coefficient of Variation 13.4 % (11.5-14.5); RDW Standard Deviation 48.6 fL (36.4-46.3); Red Blood Count 3.87 M/uL (4.2-5.4)
[2019-05-02] MEDS: METOPROLOL SUCC 25MG EXT REL TAB PO SCH (08:13)
[2019-05-02] MEDS: FUROSEMIDE 20 MG TAB PO SCH (08:14)
[2019-05-02] MEDS: guaiFENesin 600 MG TABCR PO SCH ×2 (08:14→20:39)
[2019-05-02] MEDS: PANTOprazole 40 MG TAB PO SCH (08:14)
[2019-05-02] MEDS: lisinopriL 5 MG TAB PO SCH (08:15)
[2019-05-02] MEDS: DOCUSATE SODIUM 100 MG CAP PO SCH ×2 (08:15→20:39)
[2019-05-02] MEDS: CITALOPRAM 20 MG TAB PO SCH (08:15)
[2019-05-02] MEDS: PREGABALIN 100 MG CAP PO SCH ×3 (08:20→20:43)
[2019-05-02] MEDS: PREGABALIN 25 MG CAP PO SCH ×3 (08:20→20:43)
[2019-05-02] MEDS: LORazepam 0.5 MG TAB PO SCH ×3 (08:20→20:43)
[2019-05-02 08:50] LABS: Albumin Level 2.9 gm/dl (3.4-5.0); Creatinine Clr Calc Pharmacy 57.7 ml/min; Est GFR (African American) 56.4; Est GFR (Non-African American) 48.7; Potassium 4.8 mmol/L (3.5-5.1)
[2019-05-02 08:53] LABS: Bilirubin,Total 0.3 mg/dl (0.2-1); Globulin 2.9 gm/dl (2.5-4.0); Total Protein 5.8 gm/dl (6.4-8.2)
[2019-05-02] MEDS ORDERED: COUGH DROP (SUGAR FREE) LOZ 24 LOZ/1 BOX BUCCAL PRN (14:00)
--- NOTE | 2019-05-02 16:46 | Hospitalist Progress Note ---
Date of Service May 02, 2019 Assessment & Plan (1) Acute exacerbation of chronic obstructive pulmonary disease (COPD): -as per 05/02/19 summary of admission History and Physical Pt is 68 y/o F with PMH II PE in 2013, COPD, chronic oxygen at 2 L nasal cannula, HTN, HLD, GERD, depression, anxiety, CKD III, lumbar radiculopathy, neuropathy presented to ER with complaint of SOB, nonproductive cough, increased wheezing X 2 weeks. Denies fever/chills. Started Prednisone taper 2 days ago with decreased cough, still significant wheezing and SOB. Self increased home oxygen to 6L via [place] for past week. In ER pt afebrile, P: 71, R: 22, BP: 154/58, 99% on 6L via [place]. WBC: 11, Negative influenza swab, CO2: 33, BNP: 1421 CTA CHEST: No evidence of pulmonary embolus. Mild dependent basilar atelectatic change -In ER given Solumedrol 125mg IV, magnesium 1gm, Duoneb, then continued with q 8 hours solumedrol and azithromycin -Continue chronic oxygen at 2L via [place] with pulse ox goal 90-94% -solumedrol has been de-escalated from q8 hours to q12 hours -scheduled nebulizers have been limited to QID to q8 hours -Advair while inpatient -continue home Singulair (2) Elevated troponin: Mildly elevated troponin on admission 0.046, second and third troponin levels were in reference range of normal -no chest pain -Continue metoprolol, simvastatin (3) CKD (chronic kidney disease) stage 3, GFR 30-59 ml/min: stable renal function (4) Hypertension: -Continue metoprolol, lisinopril, lasix (5) Hyperlipidemia: -Continue simvastatin (6) GERD (gastroesophageal reflux disease): -Continue PPI (7) Depression: (8) Anxiety: -Continue citalopram, trazodone, ativan (9) Lumbar radiculopathy: -Continue amitriptyline, Lyrica (10) History of pulmonary embolism: patient had pulmonary in 2013 CTA Chest on this admission is negative for PE DVT Prophylaxis -Heparin SQ DNR/DNI as per discussion with pt Follows with Dr Garcia for routine care Subjective Patient currently sleeping. was seen earlier and no acute issues with breathing compared to yesterday as per patient. Patient has been able to ambulate on her own with supplementary oxygen. Has been pain free. no dizziness reported t nursing or to doctor. Explained to patient bout down titrating respiratory therapies while remain in the hospital. Patient hopes for possible hospital discharge by tomorrow Review of Systems Review of Systems: All systems reviewed & are unremarkable except as noted in HPI & below Physical Exam Constitutional: comfortable Eyes: PERRL, conjunctivae normal, anicteric sclerae EOM intact bilaterally ENMT: external ear and nose normal, oropharynx normal Respiratory: normal respiratory effort Cardiovascular: Rate/Rhythm: regular rate and regular rhythm Gastrointestinal (Abdomen): normal bowel sounds, soft, nontender, no hepatosplenomegaly Musculoskeletal: Head/Neck/Chest: normocephalic and head atraumatic Neurologic: PERRL, EOMI, accommodation nl, no face palsy, no dysarthria CN's II-XI intact bilaterally Results & Data Vital Signs (Past 12 Hours) Vital Signs Temp Pulse Pulse Pulse Resp BP Pulse Ox 05/02/19 15:51 37.0 C 69 18 176/77 H 92 05/02/19 15:01 87 18 98 05/02/19 11:28 36.7 C 65 18 172/74 H 94 05/02/19 07:35 36.5 C 68 18 177/75 H 93 05/02/19 07:13 74 05/02/19 07:09 81 18 98
[2019-05-02] MEDS ORDERED: AZITHROMYCIN 250 MG TAB PO SCH (18:00)
[2019-05-02] MEDS: FLUTICASONE/SALMETEROL 250/50 (ADVAIR) 14 PUFF/1 INHALER INH SCH (20:38)
[2019-05-02] MEDS: AMITRIPTYLINE HCL 25 MG TAB PO SCH (20:39)
[2019-05-02] MEDS: MONTELUKAST SODIUM 10 MG TABLET PO SCH (20:40)
[2019-05-02] MEDS: TRAZODONE HCL 50 MG TAB PO SCH (20:41)
[2019-05-02] MEDS: SIMVASTATIN 40 MG TAB PO SCH (20:41)
[2019-05-03] MEDS ORDERED: LORazepam 0.5 MG TAB PO STA (03:34)
[2019-05-03] MEDS: HEPARIN SOD 5,000 UNIT/0.5 ML VIAL SQ SCH (06:29)
[2019-05-03 06:45] LABS: Hematocrit (blood only) 36.1 % (37-47); Hemoglobin 11.7 g/dL (12.0-16.0); Immature Granulocytes # (auto) 0.06 K/uL (0.00-0.02); Lymphocytes # (auto) 0.75 K/uL (1.2-3.4); Lymphocytes % (auto) 12.8 %; Mean Corpuscular Hemoglobin 32.5 pg (25-34); Mean Corpuscular Hgb Conc 32.4 g/dL (32-36); Mean Corpuscular Volume 100.3 fL (80-100); Mean Platelet Volume 10.7 fL (7.4-10.4); Monocytes # (auto) 0.38 K/uL (0.11-0.59); Monocytes % (auto) 6.5 %; Neutrophils # (auto) 4.67 K/uL (1.4-6.5); Neutrophils % (auto) 79.7 %; Platelet Count 154 K/uL (130-400); RDW Coefficient of Variation 13.4 % (11.5-14.5); RDW Standard Deviation 49.3 fL (36.4-46.3); White Blood Count 5.86 K/uL (4.8-10.8)
[2019-05-03 07:07] LABS: BUN Creatinine Ratio 29.3 (10-20); Calcium 8.6 mg/dl (8.5-10.1); Creatinine Clr Calc Pharmacy 60.5 ml/min; Est GFR (African American) 55.2; Est GFR (Non-African American) 47.7; Potassium 4.8 mmol/L (3.5-5.1)
[2019-05-03] MEDS: ALBUT/IPRATROP 3MG/0.5MG NEB 3 ML VIAL NEB SCH (07:14)
[2019-05-03] MEDS ORDERED: ALBUT/IPRATROP 3MG/0.5MG NEB 3 ML VIAL NEB PRN (07:34)
[2019-05-03] MEDS ORDERED: methylPREDNISolone 40 MG in SYRINGE 0 ML IV SCH (09:00)
[2019-05-03] MEDS: PREGABALIN 25 MG CAP PO SCH (09:15)
[2019-05-03] MEDS: PREGABALIN 100 MG CAP PO SCH (09:15)
[2019-05-03] MEDS: FLUTICASONE/SALMETEROL 250/50 (ADVAIR) 14 PUFF/1 INHALER INH SCH (09:15)
[2019-05-03] MEDS: LORazepam 0.5 MG TAB PO SCH (09:15)
[2019-05-03] MEDS: METOPROLOL SUCC 25MG EXT REL TAB PO SCH (09:16)
[2019-05-03] MEDS: DOCUSATE SODIUM 100 MG CAP PO SCH (09:16)
[2019-05-03] MEDS: guaiFENesin 600 MG TABCR PO SCH (09:16)
[2019-05-03] MEDS: lisinopriL 5 MG TAB PO SCH (09:16)
[2019-05-03] MEDS: PANTOprazole 40 MG TAB PO SCH (09:16)
[2019-05-03] MEDS: FUROSEMIDE 20 MG TAB PO SCH (09:16)
[2019-05-03] MEDS: CITALOPRAM 20 MG TAB PO SCH (09:16)
--- NOTE | 2019-05-03 12:10 | Hospitalist Progress Note ---
Date of Service May 03, 2019 Assessment & Plan (1) Acute exacerbation of chronic obstructive pulmonary disease (COPD): -as per 05/02/19 summary of admission History and Physical Pt is 68 y/o F with PMH II PE in 2014, COPD, chronic oxygen at 2 L nasal cannula, HTN, HLD, GERD, depression, anxiety, CKD III, lumbar radiculopathy, neuropathy presented to ER with complaint of SOB, nonproductive cough, increased wheezing X 2 weeks. Denies fever/chills. Started Prednisone taper 2 days ago with decreased cough, still significant wheezing and SOB. Self increased home oxygen to 6L via NC for past week. In ER pt afebrile, P: 71, R: 22, BP: 154/58, 99% on 6L via NC. WBC: 11, Negative influenza swab, CO2: 33, BNP: 1421 CTA CHEST: No evidence of pulmonary embolus. Mild dependent basilar atelectatic change -In ER given Solumedrol 125mg IV, magnesium 1gm, Duoneb, then continued with q 8 hours solumedrol and azithromycin -Continue chronic oxygen at 2L via NC with pulse ox goal 90-94% -solumedrol has been de-escalated from q8 hours to q12 hours and then to once daily by 05/03/19 -scheduled nebulizers have been de-escalated -Advair while inpatient -continue home Singulair 05/03/19: Patient feeling better and prefers to go home. -Patient should be on prednisone taper of 40 mg daily for 2 days, 20 mg daily x 2 days, 10 mg daily for 2 days Patient received azithromycin antibiotic while in the hospital on 05/02/19 to 05/03/19. Patient should take azithromycin 250 mg prescription starting on 05/04/19 for 3 more days because of the COPD exacerbation. Patient should avoid taking citalopram at home while on azithromycin Medications sent electronically to [facility] Follow up appointments 05/09/2019 11:00 AM Provider Rowena Garcia MD Department General Internal Medicine [facility] (2) Elevated troponin: Mildly elevated troponin on admission 0.046, second and third troponin levels were in reference range of normal -no chest pain -Continue metoprolol, simvastatin (3) CKD (chronic kidney disease) stage 3, GFR 30-59 ml/min: stable renal function (4) Hypertension: -Continue metoprolol, lisinopril, lasix (5) Hyperlipidemia: -Continue simvastatin (6) GERD (gastroesophageal reflux disease): -Continue PPI (7) Depression: (8) Anxiety: -Continue citalopram, trazodone, ativan (9) Lumbar radiculopathy: -Continue amitriptyline, Lyrica (10) History of pulmonary embolism: patient had pulmonary in 2013 CTA Chest on this admission is negative for PE DVT Prophylaxis -Heparin SQ DNR/DNI as per discussion with pt Follows with Dr Garcia for routine care Discharge Diagnosis: Acute exacerbation of chronic obstructive pulmonary disease (COPD), Hypertension, CKD (chronic kidney disease) stage 3 with GFR 30-59 ml/ min, elevated troponin (Mildly elevated troponin on admission 0.046, second and third troponin levels were in reference range of normal) Subjective Patient feeling better and prefers to go home. She does not have any chest discomforts. no abdominal pain. no nausea. no vomiting. no dizziness. no headache. discharge instructions discussed at length Review of Systems Review of Systems: All systems reviewed & are unremarkable except as noted in HPI & below Physical Exam Constitutional: comfortable Eyes: PERRL, conjunctivae normal, anicteric sclerae EOM intact bilaterally ENMT: external ear and nose normal, oropharynx normal Respiratory: normal respiratory effort Cardiovascular: Rate/Rhythm: regular rate and regular rhythm Gastrointestinal (Abdomen): normal bowel sounds, soft, nontender, no hepatosplenomegaly Musculoskeletal: Head/Neck/Chest: normocephalic and head atraumatic Neurologic: PERRL, EOMI, accommodation nl, no face palsy, no dysarthria CN 's II-XI intact bilaterally Results & Data Vital Signs (Past 12 Hours) Vital Signs Temp Pulse Pulse Pulse Resp BP BP 05/03/19 11:58 36.7 C 62 67 20 135/51 L 167/56 H 05/03/19 11:45 36.7 C 62 20 167/56 H 05/03/19 08:06 37.0 C 66 20 143/70 H 05/03/19 07:41 70 05/03/19 07:14 69 20 05/03/19 03:47 36.5 C 69 20 187/71 H Pulse Ox 05/03/19 11:58 97 05/03/19 11:45 97 05/03/19 08:06 97 05/03/19 07:41 05/03/19 07:14 93 05/03/19 03:47 92
--- NOTE | 2019-05-03 12:14 | Discharge Summary ---
Date of Service May 03, 2019 Admission HPI Per Admitting Provider Pt is 68 y/o F with PMH II PE in 2014, COPD, chronic oxygen at 2 L nasal cannula, HTN, HLD, GERD, depression, anxiety, CKD III, lumbar radiculopathy, neuropathy presented to ER with complaint of SOB X 2 weeks. Patient reports had nonproductive cough, increased wheezing. Chronic rhinorrhea and denies any worsening. Reports PCP started on prednisone taper. Reports took 2 days prednisone of 50mg daily and reports feels cough has decreased. Still with SOB and wheezing. She self increased her oxygen to 6L for the past week. Patient reports upon increased to 6 L she felt increased pressure in her chest. Does not think it helped with her shortness of breath. Patient does not have home pulse ox.Patient denies any known fever or chills. She reports the past 2 weeks has been needing to use her albuterol inhaler 3 times a day which has relieved some shortness of breath and wheezing. Denies any ill contacts. Denies any chest pain. Reports had influenza vaccine this season. Denies recent antibiotic use. Reports chronic BLE edema and denies significant worsening. Denies fever/chills, diaphoresis, N/V/D/C, MCDANIELS, dizziness, syncope, vision changes, neck pain, orthopnea, palpitations, hemoptysis, sore throat, choking, otalgia, abdominal pain, paresthesias, weakness, extremity weakness, rashes, urinary symptoms. Admission Exam Per Admitting Provider General: no distress, obese Head: normocephalic, atraumatic Eyes: PERRL, EOM's intact, conjunctiva non-injected, anicteric ENT: normal inspection external ears, nose, mucous membranes moist Neck: supple, trachea midline Lungs:no respiratory distress on 2L oxygen NC, O2 sats 98%, +diffuse wheezing throughout CV: RRR, no murmur, 1+ pretibial edema Abd: normal BS, soft, protuberant, non-tender Ext: no cyanosis, no calf tenderness Neuro: A&O x 3, no focal deficits noted, normal affect Skin: warm, dry Principal Diagnosis Acute exacerbation of chronic obstructive pulmonary disease (COPD), Hypertension, CKD (chronic kidney disease) stage 3 with GFR 30-59 ml/min, elevated troponin (Mildly elevated troponin on admission 0.046, second and third troponin levels were in reference range of normal) Discharge Exam Constitutional comfortable Eyes PERRL, conjunctivae normal, anicteric sclerae EOM intact bilaterally ENMT external ear and nose normal, oropharynx normal Respiratory normal respiratory effort Cardiovascular Rate/Rhythm: regular rate and regular rhythm Gastrointestinal (Abdomen) normal bowel sounds, soft, nontender, no hepatosplenomegaly Musculoskeletal Head/Neck/Chest: normocephalic and head atraumatic Neurologic PERRL, EOMI, accommodation nl, no face palsy, no dysarthria CN's II-XI intact bilaterally Discharge Data Allergies Allergy/AdvReac Type Severity Reaction Status Date / Time Uncoded Nonscreenable Allergy Unknown requests Uncoded 10/07/18 07:59 Allergen no narcotics Consultations 04/30/19 14:21 ED Decision to Admit Stat 04/30/19 16:58 Consult Case Management - Discharge Planning Routine Ordered Studies 04/30/19 14:20 CT angio chest PE protocol Stat Hospital Course (1) Acute exacerbation of chronic obstructive pulmonary disease (COPD): -as per 05/02/19 summary of admission History and Physical Pt is 68 y/o F with PMH II PE in 2014, COPD, chronic oxygen at 2 L nasal cannula, HTN, HLD, GERD, depression, anxiety, CKD III, lumbar radiculopathy, neuropathy presented to ER with complaint of SOB, nonproductive cough, increased wheezing X 2 weeks. Denies fever/chills. Started Prednisone taper 2 days ago with decreased cough, still significant wheezing and SOB. Self increased home oxygen to 6L via NC for past week. In ER pt afebrile, P: 71, R: 22, BP: 154/58, 99% on 6L via NC. WBC: 11, Negative influenza swab, CO2: 33, BNP: 1421 CTA CHEST: No evidence of pulmonary embolus. Mild dependent basilar atelectatic change -In ER given Solumedrol 125mg IV, magnesium 1gm, Duoneb, then continued with q 8 hours solumedrol and azithromycin -Continue chronic oxygen at 2L via NC with pulse ox goal 90-94% -solumedrol has been de-escalated from q8 hours to q12 hours and then to once daily by 05/03/19 -scheduled nebulizers have been de-escalated -Advair while inpatient -continue home Singulair 05/03/19: Patient feeling better and prefers to go home. -Patient should be on prednisone taper of 40 mg daily for 2 days, 20 mg daily x 2 days, 10 mg daily for 2 days Patient received azithromycin antibiotic while in the hospital on 05/02/19 to 05/03/19. Patient should take azithromycin 250 mg prescription starting on 05/04/19 for 3 more days because of the COPD exacerbation. Patient should avoid taking citalopram at home while on azithromycin Medications sent electronically to [facility] Follow up appointments 05/09/2019 11:00 AM Provider Rowena Garcia MD Department [facility] (2) Elevated troponin: Mildly elevated troponin on admission 0.046, second and third troponin levels were in reference range of normal -no chest pain -Continue metoprolol, simvastatin (3) CKD (chronic kidney disease) stage 3, GFR 30-59 ml/min: stable renal function (4) Hypertension: -Continue metoprolol, lisinopril, lasix (5) Hyperlipidemia: -Continue simvastatin (6) GERD (gastroesophageal reflux disease): -Continue PPI (7) Depression: (8) Anxiety: -Continue citalopram, trazodone, ativan (9) Lumbar radiculopathy: -Continue amitriptyline, Lyrica (10) History of pulmonary embolism: patient had pulmonary in 2013 CTA Chest on this admission is negative for PE DVT Prophylaxis -Heparin SQ DNR/DNI as per discussion with pt Follows with Dr Garcia for routine care Discharge Diagnosis: Acute exacerbation of chronic obstructive pulmonary disease (COPD), Hypertension, CKD (chronic kidney disease) stage 3 with GFR 30-59 ml/min, elevated troponin (Mildly elevated troponin on admission 0.046, second and third troponin levels were in reference range of normal) Total Time Total Time Spent Total Time Spent (In Minutes): 40 minutes Total Time Includes: Examination of the Patient, Discharge Planning, Medication Reconciliation and Communication With Other Providers Discharge Plan Discharge Items Patient Disposition: Home - Self-Care Reason For Visit: COPD EXACERBATION Discharge Diagnosis: Acute exacerbation of chronic obstructive pulmonary disease (COPD), Hypertension, CKD (chronic kidney disease) stage 3 with GFR 30-59 ml/min, elevat ed troponin (Mildly elevated troponin on admission 0.046, second and third troponin levels were in reference range of normal) Condition on Discharge: Good Activity: Resume your previous activity Non-emergency contact: Primary Care Provider Call non-emergency contact if: you have any medication questions Follow-up/Referrals: Rowena Garcia MD [Primary Care Provider] - Diet: Heart Healthy Addtl Attending Provider Instructions: Patient should be on prednisone taper of 40 mg daily for 2 days, 20 mg daily x 2 days, 10 mg daily for 2 days Patient received azithromycin antibiotic while in the hospital on 05/02/19 to 05/03/19. Patient should take azithromycin 250 mg prescription starting on 05/04/19 for 3 more days because of the COPD exacerbation. Patient should avoid taking citalopram at home while on azithromycin Medications sent electronically to [facility] Follow up appointments 05/09/2019 11:00 AM Provider Rowena Garcia MD Department General Internal Medicine [facility] Pending Studies at Discharge: No Stand-Alone Forms: My [facility] [employer] Smoking Cessation Medications and DC Order Prescriptions: New prednisone 20 mg tablet 40 mg PO UD 6 Days Qty: 8 RF: 0 azithromycin [Zithromax] 250 mg Tablet 250 mg PO Q24H 3 Days Qty: 3 RF: 0 Continued metoprolol succinate 25 mg Tablet Extended Release 24 Hr 25 mg PO DAILY RF: 0 diclofenac sodium 1 % Gel 2 g TOPICAL TID PRN (Reason: Pain) RF: 0 Dulera 100-5 mcg/actuation Hfa Aerosol Inhaler 2 puff INHALATION BID RF: 0 Incruse Ellipta 62.5 mcg/actuation Blister With Device 1 inh INHALATION DAILY RF: 0 sennosides [Senokot] 8.6 mg Tablet 8.6 mg PO BID PRN (Reason: Constipation) RF: 0 trazodone 50 mg Tablet 50 mg PO HS RF: 0 polyethylene glycol 3350 [Miralax] 17 gram Powder In Packet 17 g PO DAILY PRN (Reason: Constipation) RF: 0 simvastatin [Zocor] 40 mg Tablet 40 mg PO HS RF: 0 amitriptyline 25 mg tablet 25 mg PO HS RF: 0 lorazepam [Ativan] 0.5 mg tablet 0.5 mg PO TID RF: 0 pantoprazole 40 mg Tablet,Delayed Release (Dr/Ec) 40 mg PO QAM RF: 0 montelukast [Singulair] 10 mg Tablet 10 mg PO PM RF: 0 lisinopril 5 mg Tablet 5 mg PO QAM RF: 0 furosemide [Lasix] 20 mg Tablet 20 mg PO QAM RF: 0 ergocalciferol (vitamin D2) 50,000 unit Capsule 50,000 unit PO WK RF: 0 albuterol sulfate [Ventolin HFA] 90 mcg/actuation Hfa Aerosol Inhaler 2 puff INHALATION QID PRN (Reason: Shortness Of Breath) RF: 0 fluticasone propionate 50 mcg/actuation [place],Suspension 2 spray INTRANASAL DAILY PRN (Reason: Allergy Symptoms) RF: 0 docusate sodium 100 mg Tablet 100 mg PO BID RF: 0 pregabalin [Lyrica] 25 mg Capsule 25 mg PO TID RF: 0 pregabalin [Lyrica] 100 mg Capsule 100 mg PO TID RF: 0 (DME) Oxygen Home Liters Per Minute See Dose Instructions .ROUTE .MEDSUPPLY Qty: 1 RF: 0 Discontinued citalopram [Celexa] 20 mg tablet 20 mg PO QAM RF: 0 prednisone 10 mg tablet 10 mg PO UD Qty: 30 RF: 0 Discharge Orders: Discharge Order (Routine); Ordered 05/03/19 Ordered By: Dwayne Akhtar Admission Data Admit Date/Time: 04/30/19 15:32 Attending Provider: Dwayne Akhtar Admit Provider: Maribell Montanez Primary Care Provider: Rowena Garcia Other Providers: Maribell Montanez Other Interventions: Discharge Summary Assessment (RN) Last Done: 05/03/19 11:58
== END 2019-05-03 12:56 | disposition home or self-care (01) | DRG 191 ==
LOC: ED 11:59 → 2N 15:32 → SUATTDRO 15:32 → 2N 16:43

== ENCOUNTER 2019-07-31 13:00 | Inpatient (IN) ==
--- NOTE | 2019-07-31 14:33 | XRay Report ---
XR chest 1V portable CLINICAL HISTORY: weakness dyspnea COMPARISON STUDY: 07/16/2019 FINDINGS: Minimal linear atelectasis right midlung. Lungs otherwise appear clear. No well-defined foc al infiltrate. Diaphragms are smooth. IMPRESSION: Minimal linear atelectasis right midlung. Study is otherwise negative. ACT 112: Negative or not required by law. The above report was generated using voice recognition software. It may contain grammatical, syntax or spelling errors. Electronically signed by: Ismael Salas M.D. 07/31/2019 2:31 PM
[2019-07-31 14:38] LABS: Basophils # (auto) 0.01 K/uL (0-0.2); Basophils % (auto) 0.2 %; Eosinophils # (auto) 0.09 K/uL (0-0.5); Eosinophils % (auto) 1.4 %; Hematocrit (blood only) 38.6 % (37-47); Hemoglobin 12.5 g/dL (12.0-16.0); Immature Granulocytes # (auto) 0.02 K/uL (0.00-0.02); Immature Granulocytes % (auto) 0.3 %; Lymphocytes # (auto) 1.47 K/uL (1.2-3.4); Lymphocytes % (auto) 22.4 %; Mean Corpuscular Hemoglobin 33.2 pg (25-34); Mean Corpuscular Hgb Conc 32.4 g/dL (32-36); Mean Corpuscular Volume 102.4 fL (80-100); Mean Platelet Volume 10.5 fL (7.4-10.4); Monocytes # (auto) 0.53 K/uL (0.11-0.59); Monocytes % (auto) 8.1 %; Neutrophils # (auto) 4.44 K/uL (1.4-6.5); Neutrophils % (auto) 67.6 %; Platelet Count 136 K/uL (130-400); RDW Coefficient of Variation 13.8 % (11.5-14.5); RDW Standard Deviation 51.9 fL (36.4-46.3); Red Blood Count 3.77 M/uL (4.2-5.4); White Blood Count 6.56 K/uL (4.8-10.8)
[2019-07-31] MEDS ORDERED: ALBUT/IPRATROP 3MG/0.5MG NEB 3 ML VIAL NEB STA (15:01)
[2019-07-31] MEDS ORDERED: methylPREDNISolone 125 MG/2 ML VIAL IV STA (15:01)
[2019-07-31 15:02] LABS: Albumin Level 2.8 gm/dl (3.4-5.0); BUN Creatinine Ratio 20.1 (10-20); Calcium 8.5 mg/dl (8.5-10.1); Creatinine Clr Calc Pharmacy 56.9 ml/min; Est GFR (African American) 59.6; Est GFR (Non-African American) 51.4; Magnesium 2.5 mg/dl (1.8-2.4); Potassium 4.2 mmol/L (3.5-5.1)
[2019-07-31 15:18] LABS: Bilirubin,Total 0.4 mg/dl (0.2-1); Globulin 2.8 gm/dl (2.5-4.0); Thyroid Stimulating Hormone 1.14 uIu/ml (0.300-4.500); Total Protein 5.6 gm/dl (6.4-8.2); Troponin I 0.103 ng/ml (0-0.045)
--- NOTE | 2019-07-31 15:36 | Electrocardiogram Report ---
Test Reason : Blood Pressure : / mmHG Vent. Rate : 073 BPM Atrial Rate : 073 BPM P-R Int : 158 ms QRS Dur : 090 ms QT Int : 400 ms P-R-T Axes : 055 049 064 degrees QTc Int : 440 ms Poor data quality, interpretation may be adversely affected Normal sinus rhythm Normal ECG When compared with ECG of 16-JUL-2019 15:14, No significant change was found Confirmed by Star Slater ([id number]) on 07/31/2019 3:35:54 PM Referred By: Confirmed By:Star Slater
--- NOTE | 2019-07-31 16:38 | History & Physical Report ---
Date of Service July 31, 2019 Assessment & Plan (1) Acute exacerbation of chronic obstructive pulmonary disease (COPD): Pt is 68 y/o F with PMH COPD on 3L, HTN, HLD, h/o PE in 2013, depression, anxiety, CKD III, lumbar radiculopathy, neuropathy, GERD presented to ER with complaint of increased shortness of breath and weakness x 2 days. In ER afebrile, P: 108 down to 75, RR: 20, BP: 138/72, 94% on 3L oxygen via NC No leukocytosis, influenza swab THROAT: No sore throat, difficulty swallowing, or hoarseness. CXR: Minimal linear atelectasis right midlung. -In ER given Solu-Medrol 125 mg IV, neb treatment -Continue chronic supplemental oxygen at 3 L -Duo nebs -Solu-Medrol 40 mg every 8 hours -Doxycycline -Continue home inhalers, Singulair (2) Weakness: Generalized weakness probable secondary to COPD exacerbation and illness -PT/OT eval (3) Elevated troponin: Troponin: 0.103. No EKG changes. No chest pain Probable demand ischemia -Trend troponin -Consider echo, cardiology consult if troponin increasing or develops CP (4) Hypertension: Stable -Continue metoprolol, lisinopril, Lasix (5) CKD (chronic kidney disease) stage 3, GFR 30-59 ml/min: Cr: 1.09. Baseline Cr~1.2 -Monitor renal functions -Avoid nephrotoxic agents when possible (6) Hyperlipidemia: -Continue simvastatin (7) GERD (gastroesophageal reflux disease): -Continue PPI (8) Anxiety: (9) Depression: -Continue citalopram, ativan prn (10) Lumbar radiculopathy: Chronic low back pain. At baseline per pt -Continue Lyrica, amitriptyline (11) Morbid obesity: BMI: 51 -Lifestyle modifications recommended DVT Prophylaxis -Heparin SQ DNR/DNI as per discussion with pt Follows with Dr Garcia for routine care Pt was seen and care coordinated with Dr Hurley. See addendum History of Present Illness Chief Complaint: SOB and weakness Primary Care Provider: Rowena Garcia MD Pt is 68 y/o F with PMH COPD on 3L, HTN, HLD, h/o PE in 2013, depression, anxiety, CKD III, lumbar radiculopathy, neuropathy, GERD presented to ER with complaint of increased shortness of breath and weakness x 2 days. Patient reports intermittent dry cough for the past month. States past 2 days increased generalized weakness and weakness of bilateral extremities and feeling shaky. This morning she had difficulty getting off toilet secondary to weakness and lowered herself to the floor and was unable to get herself off the floor. Denies falls. Walks with assistance of walker. Having decreased appetite past 2 days. Denies any chest pain, fever, chills. Reports chronic BLE edema denies any increased. Denies recent travel. Reports had influenza vaccine this season. Reports [id number] with URI symptoms last week. Denies diaphoresis, N/V/D/C, MCDANIELS, dizziness, syncope, new vision changes, neck pain, orthopnea, palpitations, sore throat, choking, otalgia, rhinorrhea, abdominal pain, paresthesias, rashes, urinary symptoms. Allergies Allergy/AdvReac Type Severity Reaction Status Date / Time No Known Allergies Allergy Verified 07/31/19 14:46 Home Medications Home Medications Medication Instructions Recorded Confirmed Type albuterol sulfate [Ventolin HFA] 2 puff INHALATION QID PRN 10/07/18 07/31/19 History amitriptyline 25 mg PO HS 10/07/18 07/31/19 History docusate sodium [Stool Softener] 100 mg PO BID 10/07/18 07/31/19 History ergocalciferol (vitamin D2) 50,000 unit PO MO 10/07/18 07/31/19 History [Vitamin D2] fluticasone propionate [Flonase 2 spray INTRANASAL DAILY PRN 10/07/18 07/31/19 History Allergy Relief] furosemide [Lasix] 20 mg PO QAM 10/07/18 07/31/19 History lisinopril [Zestril] 5 mg PO QAM 10/07/18 07/31/19 History lorazepam [Ativan] 0.5 mg PO TID PRN 10/07/18 07/31/19 History montelukast [Singulair] 10 mg PO HS 10/07/18 07/31/19 History pantoprazole [Protonix] 40 mg PO QAM 10/07/18 07/31/19 History polyethylene glycol 3350 [Miralax] 17 g PO DAILY PRN 10/07/18 07/31/19 History pregabalin [Lyrica] 25 mg PO TID 10/07/18 07/31/19 History pregabalin [Lyrica] 100 mg PO TID 10/07/18 07/31/19 History simvastatin [Zocor] 40 mg PO HS 10/07/18 07/31/19 History trazodone 50 mg PO HS 10/07/18 07/31/19 History Oxygen Home #1 ea 10/10/18 07/31/19 Rx Dulera 2 puff INHALATION BID 04/30/19 07/31/19 History metoprolol succinate [Toprol XL] 25 mg PO QAM 04/30/19 07/31/19 History aspirin 81 mg PO QAM 06/14/19 07/31/19 History citalopram [Celexa] 30 mg PO QAM 06/14/19 07/31/19 History ipratropium-albuterol 3 ml INHALATION Q4H PRN 06/14/19 07/31/19 History baclofen 10 mg PO BID 07/31/19 07/31/19 History umeclidinium [Incruse Ellipta] 1 inh INHALATION DAILY 07/31/19 07/31/19 History Past Med/Surg History Medical History (Updated 07/31/19 @ 16:42 by Aparna Valdez PA-C) Anxiety CKD (chronic kidney disease) stage 3, GFR 30-59 ml/min COPD (chronic obstructive pulmonary disease) (Chronic) Depression Diastolic CHF due to valvular disease Elevated troponin (Resolved) GERD (gastroesophageal reflux disease) History of pulmonary embolism Hyperlipidemia Hypertension (Chronic) Lumbar radiculopathy Morbid obesity Poor vision Surgical History History of cholecystectomy History of hysterectomy Family History Other Cancer Social History Preferred Language: Singaporean Communication Ability: Effective 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 Beliefs That Will Affect Care: None marital status: / Current Living Situation: Alone current occupational status: retired Other Information That Helps Us Care for You: No Feels Safe at Home: Yes Safety Concerns: Feels Safe At This Time Smoking Status: Former smoker Tobacco Type: cigarettes ; Cigarettes Per Day: 20 ; Smoking End Date: 2006 ; Second Hand Exposure: No ; Hx Alcohol Use: No Hx Substance Use: No Review of Systems Review of Systems: All systems reviewed & are unremarkable except as noted in HPI & below Physical Exam Physical Exam: General: no distress on 3L chronic oxygen, obese Head: normocephalic, atraumatic Eyes: PERRL, EOM's intact, conjunctiva non-injected, anicteric ENT: normal inspection external ears, nose, mucous membranes moist Neck: supple, trachea midline Lungs: no respiratory distress on 3L oxygen via NC, able to speak in sentences, +diffuse wheezing throughout CV: RRR, +systolic murmur, no JVD, trace pretibial edema Abd: normal BS, protuberant, soft, non-tender Ext: no cyanosis, no calf tenderness Neuro: A&O x 3, +generalized weakness upper and lower extremities, no other foca l deficits noted, normal affect Skin: warm, dry Results & Data Vital Signs (Past 12 Hours) Vital Signs Temp Pulse Pulse Resp BP Pulse Ox 07/31/19 15:30 75 21 144/76 H 97 07/31/19 15:23 76 18 96 07/31/19 15:20 77 19 98 07/31/19 15:10 74 21 98 07/31/19 15:01 74 17 144/84 H 98 07/31/19 15:00 72 13 98 07/31/19 14:51 74 17 113/60 98 07/31/19 14:50 75 22 98 07/31/19 14:40 75 16 98 07/31/19 14:30 73 14 97 07/31/19 14:20 81 13 97 07/31/19 14:10 74 14 96 07/31/19 14:01 74 14 97 07/31/19 14:00 79 17 129/67 07/31/19 13:50 80 20 97 07/31/19 13:40 77 15 96 07/31/19 13:32 79 14 98 07/31/19 13:31 80 19 141/75 H 98 07/31/19 13:30 82 16 95 07/31/19 13:20 83 12 97 07/31/19 13:10 90 18 96 07/31/19 13:09 85 18 96 07/31/19 13:05 36.4 C L 108 H 20 138/72 94 07/31/19 13:03 108 H 19 138/72 96 Laboratory Results Short CBC 07/31/19 Range/Units 14:25 WBC 6.56 (4.8-10.8) K/uL Hgb 12.5 (12.0-16.0) g/dL Hct 38.6 (37-47) % Plt Count 136 (130-400) K/uL BMP 07/31/19 14:25 Sodium 137 Potassium 4.2 Chloride 103 Carbon Dioxide 32 BUN 22 H Creatinine 1.09 Glucose 113 H Calcium 8.5 Cardiac Enzymes 07/31/19 Range/Units 14:25 Troponin I 0.103 H* (0-0.045) ng/ml Liver Function 07/31/19 Range/Units 14:25 Total Bilirubin 0.4 (0.2-1) mg/dl AST 15 (15-37) U/L ALT 17 (12-78) U/L Alkaline Phosphatase 64 (45-117) U/L Albumin 2.8 L (3.4-5.0) gm/dl Diagnostic Findings CXR: IMPRESSION: Minimal linear atelectasis right midlung. Study is otherwise negative. ECG Rate (beats per minute): 73 Rhythm: sinus rhythm Code Status & VTE Plan VTE Prophylaxis Plan VTE Prophylaxis will be ordered: Yes Supervising Physician Co-Signing Physician Notes Attending addendum; The patient was seen and examined in medical floor She was admitted with weak legs with fall and shortness of breath secondary to COPD exacerbation She complains to have weak legs but denies any significant short of breath during examination Denies any chest pain and/or palpitation, no abdominal pain nausea and/or vomiting. On examination She is morbidly obese and resting in bed comfortably Minimal shortness of breath at rest Hemodynamically stable Chest- decreased breath sounds bilaterally with occasional wheezing Heart-S1-S2, regular Abdomendistended, soft, bowel sounds present Extremities1+ edema bilaterally CNSalert, awake and oriented x3. Generalized weakness but no focal neuro defic it Her admission labs, EKG and imaging studies reviewed She has significant ambulatory dysfunction likely causes could be the illness and obesity Mild COPD exacerbation is complicating the mobility PT and OT has been ordered Agree with assessment and plan as outlined above by SARAH Campos DR
[2019-07-31] MEDS ORDERED: FLUTICASONE PROPIONATE NA SPR 16 GM BTL NAE PRN (17:21)
[2019-07-31] MEDS ORDERED: POLYETHYLENE (MIRALAX) 17 GM PACK PO PRN (17:21)
[2019-07-31] MEDS: methylPREDNISolone 40 MG in SYRINGE 0 ML IV SCH (18:42)
[2019-07-31] MEDS: ALBUT/IPRATROP 3MG/0.5MG NEB 3 ML VIAL NEB SCH (19:21)
[2019-07-31] MEDS: LORazepam 0.5 MG TAB PO PRN (20:30)
[2019-07-31] MEDS: PREGABALIN 25 MG CAP PO SCH (20:30)
[2019-07-31] MEDS: PREGABALIN 100 MG CAP PO SCH (20:30)
[2019-07-31] MEDS: SIMVASTATIN 40 MG TAB PO SCH (20:31)
[2019-07-31] MEDS: TRAZODONE HCL 50 MG TAB PO SCH (20:31)
[2019-07-31] MEDS: AMITRIPTYLINE HCL 25 MG TAB PO SCH (20:31)
--- NOTE | 2019-07-31 20:31 | Emergency Department Note ---
Entered by Blanca Marinelli acting as a scribe for Dereje Raza MD ED Provider Note CHIEF COMPLAINT: weakness HISTORY OF PRESENT ILLNESS: The patient is a 68 year old F who presents to the Emergency Room with complaints of worsening weakness that started a couple of days ago. The patient states that 3 days, she started to experience a headache. She adds that yesterday, she started to experience numbness in both of her legs and hand tremors. She notes that today, she got up around 4am to go to the bathroom. She states that after going to the bathroom, she tried to get up from the toilet but experienced increasing weakness. She notes that due to this, she got onto the floor, and tried to pull herself to her bed. She denies injuring herself or experiencing any trauma. She adds that she experienced rug burn on her legs due to pulling herself on her carpet frances to her bed. She states that she called EMS when she got back to her bed. She notes that she has a history of back issues and shoulder pain. She adds that she is currently experiencing burning back pain due to her history. She states that she also has a history of COPD, cholecystectomy, hysterectomy, a total hip replacement, and total knee replacements. She notes that she is always on 3L of oxygen due to her COPD. She adds that she used her nebulizer today. She denies experiencing any new breathing issues. She notes that she was around her daughter, last week, when her daughter had a cold. Pt denies LOC, fevers, chills, diaphoresis, visual changes, neck pain, chest pain, new breathing difficulties, nausea, vomiting, abdominal pain, melena, dorita tochezia, urinary symptoms, lymphadenopathy, rash, or other complaints. A review of the patient's records show that the patient was admitted in April for COPD exacerbation and an elevated troponin. REVIEW OF SYSTEMS: See HPI for pertinent positives and negatives. A total of ten systems were reviewed and were otherwise negative. PMHx/PSHx: CKD, COPD, depression, CHF, GERD, HLD, HTN, cholecystectomy, hysterectomy, a total hip replacement, and total knee replacements SOCIAL HISTORY: Patient lives at home. Patient is a former smoker PHYSICAL EXAM: GENERAL: Awake, alert, well-appearing, in no distress HENT: Normocephalic, atraumatic. Oropharynx unremarkable. EYES: PERRL. Normal conjunctiva. Sclera non-icteric. NECK: Inspection normal. Non-tender. Supple. No nuchal rigidity. FROM. No masses. RESPIRATORY: Expiratory wheezing in both sides of lung. No rales. Normal respiratory effort. CARDIAC: Normal rate. Normal rhythm. No murmurs. No rubs. Extremities warm and well perfused. Pulses equal. No JVD. GI: Soft, non-distended. No tenderness to palpation. No rebound or guarding. No masses. RECTAL: Deferred. MUSCULOSKELETAL: Atraumatic. Chest examination reveals no tenderness. The back is symmetrical on inspection without obvious abnormality. There is no CVA tenderness to palpation. No joint edema. LOWER EXTREMITIES: Calves are equal size bilaterally and non-tender. Trace pedal edema. Mild erythematous discoloration on right lower leg. NEURO: Normal sensorium. No sensory or motor deficits noted. SKIN: No rash or jaundice noted. EMERGENCY DEPARTMENT COURSE: 1411: The patient was evaluated in room C6, and a complete history and physical examination were performed. 1547: I updated the patient on her test results and on the plan for admission. 1549: I reviewed the patient's case with Aparna Valdez PA-C, for Dr. Hurley, [facility] Hospitalist. They will evaluate the patient for further management. MEDICAL DECISION MAKING: Continuous Cardiac Monitoring: An order was placed for continuous cardiac monito ring. The monitor shows a rate of 75 with normal sinus rhythm. C6 Prior records/ancillary studies reviewed. Nursing notes reviewed and agree them. Additional history obtained from family. The patient's history was concerning for weakness, inability to ambulate, and history of COPD Differential diagnosis: Etiologies such as metabolic, infection, hypo/hyperglycemia, electrolyte abnormalities, cardiac sources, COPD exacerbation, intracerebral event, toxicologic, neurologic, as well as others were entertained. Physical examination: As above. Nonfocal neurologic examination. No external signs of trauma. ER treatment provided: IV Lock IV Solu-Medrol DuoNeb On reassessment the patient felt better. Diagnostics interpretation by me: ECG: No acute ischemic changes. The labs revealed an unremarkable CBC and chemistry panel. The patient does have an elevated troponin. Record review indicates she has had elevated troponins from time to time in the past however this is higher. Last troponin measurements were normal. Imaging studies: Chest x-ray did not reveal any acute changes. Atelectasis noted. Consultation: A consultation was placed with the hospitalist. The case was discussed and diagnostics were reviewed. The patient was evaluated in the ER for further treatment. IMPRESSION: elevated troponin, weakness, COPD PLAN: Admitted as inpatient The scribe's documentation has been prepared under my direction and personally reviewed by me in its entirety. I confirm that the note above accurately reflects all work, treatment, procedures, and medical decision making performed by me. Impression & Plan Elevated troponin, COPD (chronic obstructive pulmonary disease), Weakness Past Med/Surg History Medical History (Updated 07/31/19 @ 16:42 by Aparna Valdez PA-C) Anxiety CKD (chronic kidney disease) stage 3, GFR 30-59 ml/min COPD (chronic obstructive pulmonary disease) (Chronic) Depression Diastolic CHF due to valvular disease Elevated troponin (Resolved) GERD (gastroesophageal reflux disease) History of pulmonary embolism Hyperlipidemia Hypertension (Chronic) Lumbar radiculopathy Morbid obesity Poor vision Surgical History History of cholecystectomy History of hysterectomy Family History Other Cancer Social History Preferred Language: Hebrew Communication Ability: Effective Associate Application Developer Required: No Beliefs That Will Affect Care: None marital status: / Current Living Situation: Alone current occupational status: retired Other Information That Helps Us Care for You: No Feels Safe at Home: Yes Safety Concerns: Feels Safe At This Time Smoking Status: Former smoker Tobacco Type: cigarettes ; Cigarettes Per Day: 20 ; Smoking End Date: 2006 ; Second Hand Exposure: No ; Hx Alcohol Use: No Hx Substance Use: No Results & Data Vital Signs Vital Signs - 24 hr 07/31/19 13:03 07/31/19 13:05 07/31/19 13:09 Temperature 36.4 C L Temperature Source Oral Pulse Rate 108 H 108 H 85 Pulse Rate [Right Apical] Pulse Rate from SpO2 Sensor 107 H 90 Pulse Rhythm Regular Respiratory Rate 19 20 18 Respiratory Effort / Characteristics Spontaneous Respiratory Pattern Regular Blood Pressure 138/72 138/72 Blood Pressure Mean 79 94 Pulse Oximetry 96 94 96 Oxygen Delivery Method Room Air Oxygen Flow Rate Sepsis Recent Fever Within 48 Hours No Sepsis New/Unexplained Change in Mental Status No Sepsis Action Taken by Nursing No Action Required 07/31/19 13:10 07/31/19 13:20 07/31/19 13:30 Temperature Temperature Source Pulse Rate 90 83 82 Pulse Rate [Right Apical] Pulse Rate from SpO2 Sensor 94 H 84 84 Pulse Rhythm Respiratory Rate 18 12 16 Respiratory Effort / Characteristics Respiratory Pattern Blood Pressure Blood Pressure Mean Pulse Oximetry 96 97 95 Oxygen Delivery Method Oxygen Flow Rate Sepsis Recent Fever Within 48 Hours Sepsis New/Unexplained Change in Mental Status Sepsis Action Taken by Nursing 07/31/19 13:31 07/31/19 13:32 07/31/19 13:40 Temperature Temperature Source Pulse Rate 80 79 77 Pulse Rate [Right Apical] Pulse Rate from SpO2 Sensor 81 84 78 Pulse Rhythm Respiratory Rate 19 14 15 Respiratory Effort / Characteristics Respiratory Pattern Blood Pressure 141/75 H Blood Pressure Mean 95 Pulse Oximetry 98 98 96 Oxygen Delivery Method Oxygen Flow Rate Sepsis Recent Fever Within 48 Hours Sepsis New/Unexplained Change in Mental Status Sepsis Action Taken by Nursing 07/31/19 13:50 07/31/19 14:00 07/31/19 14:01 Temperature Temperature Source Pulse Rate 80 79 74 Pulse Rate [Right Apical] Pulse Rate from SpO2 Sensor 79 76 Pulse Rhythm Respiratory Rate 20 17 14 Respiratory Effort / Characteristics Respiratory Pattern Blood Pressure 129/67 Blood Pressure Mean 105 Pulse Oximetry 97 97 Oxygen Delivery Method Oxygen Flow Rate Sepsis Recent Fever Within 48 Hours Sepsis New/Unexplained Change in Mental Status Sepsis Action Taken by Nursing 07/31/19 14:10 07/31/19 14:20 07/31/19 14:30 Temperature Temperature Source Pulse Rate 74 81 73 Pulse Rate [Right Apical] Pulse Rate from SpO2 Sensor 75 82 73 Pulse Rhythm Respiratory Rate 14 13 14 Respiratory Effort / Characteristics Respiratory Pattern Blood Pressure Blood Pressure Mean Pulse Oximetry 96 97 97 Oxygen Delivery Method Oxygen Flow Rate Sepsis Recent Fever Within 48 Hours Sepsis New/Unexplained Change in Mental Status Sepsis Action Taken by Nursing 07/31/19 14:40 07/31/19 14:50 07/31/19 14:51 Temperature Temperature Source Pulse Rate 75 75 74 Pulse Rate [Right Apical] Pulse Rate from SpO2 Sensor 75 74 73 Pulse Rhythm Respiratory Rate 16 22 17 Respiratory Effort / Characteristics Respiratory Pattern Blood Pressure 113/60 Blood Pressure Mean 74 Pulse Oximetry 98 98 98 Oxygen Delivery Method Oxygen Flow Rate Sepsis Recent Fever Within 48 Hours Sepsis New/Unexplained Change in Mental Status Sepsis Action Taken by Nursing 07/31/19 15:00 07/31/19 15:01 07/31/19 15:10 Temperature Temperature Source Pulse Rate 72 74 74 Pulse Rate [Right Apical] Pulse Rate from SpO2 Sensor 72 74 74 Pulse Rhythm Respiratory Rate 13 17 21 Respiratory Effort / Characteristics Respiratory Pattern Blood Pressure 144/84 H Blood Pressure Mean 118 Pulse Oximetry 98 98 98 Oxygen Delivery Method Oxygen Flow Rate Sepsis Recent Fever Within 48 Hours Sepsis New/Unexplained Change in Mental Status Sepsis Action Taken by Nursing 07/31/19 15:20 07/31/19 15:23 07/31/19 15:30 Temperature Temperature Source Pulse Rate 77 75 Pulse Rate [Right Apical] 76 Pulse Rate from SpO2 Sensor 77 74 Pulse Rhythm Respiratory Rate 19 18 21 Respiratory Effort / Characteristics Non-Labored Spontaneous Respiratory Pattern Blood Pressure 144/76 H Blood Pressure Mean 87 Pulse Oximetry 98 96 97 Oxygen Delivery Method Nasal Cannula Oxygen Flow Rate 3 Sepsis Recent Fever Within 48 Hours Sepsis New/Unexplained Change in Mental Status Sepsis Action Taken by [facility] Medications Current Medication List: was personally reviewed by me Laboratory Data Attestation: I reviewed the patient's lab results. Result diagrams: 07/31/19 14:25 07/31/19 14:25 Lab Results 07/31/19 07/31/19 Range/Units 14:25 14:25 WBC 6.56 (4.8-10.8) K/uL RBC 3.77 L (4.2-5.4) M/uL Hgb 12.5 (12.0-16.0) g/dL Hct 38.6 (37-47) % MCV 102.4 H (80-100) fL MCH 33.2 (25-34) pg MCHC 32.4 (32-36) g/dL RDW Std Deviation 51.9 H (36.4-46.3) fL RDW Coeff of Leo 13.8 (11.5-14.5) % Plt Count 136 (130-400) K/uL MPV 10.5 H (7.4-10.4) fL Immature Gran % (Auto) 0.3 % Neut % (Auto) 67.6 % Lymph % (Auto) 22.4 % Johnson % (Auto) 8.1 % Eos % (Auto) 1.4 % Baso % (Auto) 0.2 % Immature Gran # (Auto) 0.02 (0.00-0.02) K/uL Neut # (Auto) 4.44 (1.4-6.5) K/uL Lymph # (Auto) 1.47 (1.2-3.4) K/uL Johnson # (Auto) 0.53 (0.11-0.59) K/uL Eos # (Auto) 0.09 (0-0.5) K/uL Baso # (Auto) 0.01 (0-0.2) K/uL Sodium 137 (136-145) mmol/L Potassium 4.2 (3.5-5.1) mmol/L Chloride 103 (98-107) mmol/L Carbon Dioxide 32 (21-32) mmol/L Anion Gap 2.0 L (3-11) BUN 22 H (7-18) mg/dl Creatinine 1.09 (0.6-1.2) mg/dl Est Cr Clr Drug Dosing 56.9 ml/min Est GFR ( Amer) 59.6 Est GFR (Non-Af Amer) 51.4 BUN/Creatinine Ratio 20.1 H (10-20) Glucose 113 H (70-99) mg/dl Calcium 8.5 (8.5-10.1) mg/dl Magnesium 2.5 H (1.8-2.4) mg/dl Total Bilirubin 0.4 (0.2-1) mg/dl AST 15 (15-37) U/L ALT 17 (12-78) U/L Alkaline Phosphatase 64 (45-117) U/L Troponin I 0.103 H* (0-0.045) ng/ml Total Protein 5.6 L (6.4-8.2) gm/dl Albumin 2.8 L (3.4-5.0) gm/dl Globulin 2.8 (2.5-4.0) gm/dl Albumin/Globulin Ratio 1.0 (0.9-2) TSH 1.140 (0.300-4.500) uIu/ml Administered Medications Albuterol (Duoneb) 3 ml NEB QIDR ROBERT Stop: 08/30/19 18:59 Last Admin: 07/31/19 19:21 Dose: 3 ml Documented by: [id number] Methylprednisolone 40 mg/ (Syringe) 0.64 mls @ 1.5 mls/min IV Q8H ROBERT Stop: 08/30/19 17:59 Last Admin: 07/31/19 18:42 Dose: 1.5 mls/min Documented by: [id number] Discontinued Medications Albuterol (Duoneb) 3 ml NEB NOW STA Stop: 07/31/19 15:02 Last Admin: 07/31/19 15:20 Dose: 3 ml Documented by: [id number] Methylprednisolone (Solumedrol) 125 mg IV NOW STA Stop: 07/31/19 15:02 Last Admin: 07/31/19 15:28 Dose: 125 mg Documented by: [id number] Imaging Data Radiologist's Impression: Radiology results as stated below per my review and the radiologist's interpretation: XR chest 1V portable CLINICAL HISTORY: weakness dyspnea COMPARISON STUDY: 07/16/2019 FINDINGS: Minimal linear atelectasis right midlung. Lungs otherwise appear clear. No well-defined focal infiltrate. Diaphragms are smooth. IMPRESSION: Minimal linear atelectasis right midlung. Study is otherwise negative. ACT 112: Negative or not required by law. The above report was generated using voice recognition software. It may contain grammatical, syntax or spelling errors. Electronically signed by: Ismael Salas M.D. 07/31/2019 2:31 PM ECG Data Attestation: I personally reviewed and interpreted this ECG as follows: Indication: + weakness Rate (beats per minute): 73 Rhythm: normal sinus ECG Intervals/blocks: + Normal QRS ECG [place]: + Normal ECG ST segments: no ST depression and no ST elevation ECG Findings: no PACs and no PVCs Blood Pressure Blood Pressure Findings: Elevated blood pressure Blood Pressure Disposition: further management by hospitalist Discharge Plan Visit Data *Final* Discharge Date/Time: 07/31/19 16:29 Chief Complaint: Weakness ED Provider: Dereje Raza Discharge Problem: Elevated troponin, COPD (chronic obstructive pulmonary disease), Weakness Patient Disposition: Admitted As Inpatient Discharge Instructions Interventions: ED Discharge Assessment Last Done: 07/31/19 16:29 Discharge Problem: COPD (chronic obstructive pulmonary disease) Qualifiers: COPD type: unspecified COPD Qualified Code(s): J44.9 - Chronic obstructive pulmonary disease, unspecified The scribe's documentation has been prepared under my direction and personally reviewed by me in its entirety. I confirm that the note above accurately reflects all work, treatment, procedures, and medical decision making performed by me.
[2019-07-31] MEDS: DOCUSATE SODIUM 100 MG CAP PO SCH (20:32)
[2019-07-31] MEDS: MONTELUKAST SODIUM 10 MG TABLET PO SCH (20:32)
[2019-07-31] MEDS: DOXYCYCLINE HYCLATE 100 MG CAP PO SCH (20:32)
[2019-07-31] MEDS: BACLOFEN 10 MG TAB PO SCH (20:33)
[2019-07-31] MEDS: ACETAMINOPHEN 325 MG TAB PO PRN (21:27)
[2019-07-31] MEDS: HEPARIN SOD 5,000 UNIT/0.5 ML VIAL SQ SCH (21:31)
[2019-07-31] MEDS ORDERED: IBUPROFEN 600 MG TAB PO STA (22:08)
[2019-08-01] MEDS: methylPREDNISolone 40 MG in SYRINGE 0 ML IV SCH ×3 (01:34→17:55)
[2019-08-01 01:57] LABS: Appearance Urine Cloudy (Clear); Bacteria Urine Automated Negative (Negative); Bilirubin Urine Negative (Negative); Blood Urine 2+ (Negative); Cast Urine Automated 0 /lpf (0-5); Color Urine Yellow; Glucose Urine UA Negative (Negative); Ketones Urine Negative (Negative); Leukocyte Esterase Urine Negative (Negative); Nitrite Urine Negative (Negative); Protein Urine Negative (Negative); Specific Gravity Urine 1.013 (1.000-1.030); Urobilinogen Urine Negative (Negative)
[2019-08-01] MEDS: HEPARIN SOD 5,000 UNIT/0.5 ML VIAL SQ SCH ×3 (05:49→21:04)
[2019-08-01] MEDS: LORazepam 0.5 MG TAB PO PRN ×3 (05:50→17:52)
[2019-08-01] MEDS: ALBUT/IPRATROP 3MG/0.5MG NEB 3 ML VIAL NEB SCH ×4 (07:00→19:02)
[2019-08-01] MEDS: PREGABALIN 25 MG CAP PO SCH ×3 (08:02→20:58)
[2019-08-01] MEDS: PREGABALIN 100 MG CAP PO SCH ×3 (08:02→20:59)
[2019-08-01] MEDS: DOXYCYCLINE HYCLATE 100 MG CAP PO SCH ×2 (08:03→21:00)
[2019-08-01] MEDS: CITALOPRAM 20 MG TAB PO SCH (08:03)
[2019-08-01] MEDS: FUROSEMIDE 20 MG TAB PO SCH (08:03)
[2019-08-01] MEDS: lisinopriL 5 MG TAB PO SCH (08:03)
[2019-08-01] MEDS: FLUTICASONE/VILANTEROL 100/25MCG 14 PUFFS/INHALER INH SCH (08:04)
[2019-08-01] MEDS: BACLOFEN 10 MG TAB PO SCH ×2 (08:04→20:59)
[2019-08-01] MEDS: ASPIRIN 81 MG ECTAB PO SCH (08:04)
[2019-08-01] MEDS: METOPROLOL SUCC 25MG EXT REL TAB PO SCH (08:05)
[2019-08-01] MEDS: DOCUSATE SODIUM 100 MG CAP PO SCH ×2 (08:05→20:59)
[2019-08-01] MEDS: PANTOprazole 40 MG TAB PO SCH (08:06)
--- NOTE | 2019-08-01 08:51 | Hospitalist Progress Note ---
Date of Service August 01, 2019 Assessment & Plan (1) Acute exacerbation of chronic obstructive pulmonary disease (COPD): Pt is 68 y/o F with PMH COPD on 3L, HTN, HLD, h/o PE in 2013, depression, anxiety, CKD III, lumbar radiculopathy, neuropathy, GERD presented to ER with complaint of increased shortness of breath and weakness x 2 days. In ER afebrile, P: 108 down to 75, RR: 20, BP: 138/72, 94% on 3L oxygen via NC No leukocytosis, influenza swab THROAT: No sore throat, difficulty swallowing, or hoarseness. CXR: Minimal linear atelectasis right midlung. -In ER given Solu-Medrol 125 mg IV, neb treatment -Continue chronic supplemental oxygen at 3 L but adjust to goal O2 sats of 86- 92% -Duo nebs -Solu-Medrol 40 mg every 8 hours -Doxycycline -Continue home inhalers, Singulair (2) Weakness: Generalized weakness probable secondary to COPD exacerbation and illness -PT/OT eval (3) Elevated troponin: Troponin: 0.103. No EKG changes. No chest pain Probable demand ischemia - troponin trended down -Consider echo, cardiology consult if troponin increasing or develops CP (4) Hypertension: Stable -Continue metoprolol, lisinopril, Lasix (5) CKD (chronic kidney disease) stage 3, GFR 30-59 ml/min: Cr: 1.09. Baseline Cr~1.2 -Monitor renal functions -Avoid nephrotoxic agents when possible (6) Hyperlipidemia: -Continue simvastatin (7) GERD (gastroesophageal reflux disease): -Continue PPI (8) Anxiety: (9) Depression: -Continue citalopram, ativan prn (10) Lumbar radiculopathy: Chronic low back pain. -Continue Lyrica, amitriptyline -will add lidocaine patches as pt reports burning buttocks pain (11) Morbid obesity: BMI: 51 -Lifestyle modifications recommended DVT Prophylaxis -Heparin SQ DNR/DNI as per discussion with pt Follows with Dr Garcia for routine care Admission and Anticipated Discharge Date Admission Date: July 31, 2019 Subjective Pt complains of b/l buttocks burning pain, says she has had it for past 5 months. Reports that her PCP started her on lyrica for that and that she takes ativan prescribed by her psychiatrist. Pt reports that only ativan helps with buttocks pain. Pt reports that her anxiety is related to the fact that she is loosing her eye sight from macular degeneration. Today she reports she was able to use her walker and walk to the bathroom and back to bed. No PT yet as she was just admitted yesterday. Pt admitted after she could not get up from toilet at home. Treated for COPD exacerbation. Reports using 3L at baseline (for several months now, previously was on 2L at baseline). O2 sats goal 86-92% given her COPD Review of Systems Review of Systems: All systems reviewed & are unremarkable except as noted in HPI & below Constitutional: + body aches (buttocks pain); no fever and no chills Respiratory: + cough (improved) and + dyspnea (improved) Cardiovascular: no chest pain and no palpitations Gastrointestinal: no abdominal pain, no nausea and no vomiting Physical Exam Physical Exam: General: Elderly morbidly obese female, in no acute respiratory distress, on 3L O2, satting 96% Head: normocephalic, atraumatic Eyes: PERRL, EOM's intact, conjunctiva non-injected, anicteric ENT: normal inspection external ears, nose, mucous membranes moist Neck: supple, trachea midline Lungs: no respiratory distress on 3L oxygen via [place], able to speak in full sentences, +diffuse mild wheezing, faint rhonchi CV: RRR, +systolic murmur, no JVD, trace pretibial edema Abd: normal BS, protuberant, soft, non-tender Ext: no cyanosis, no calf tenderness Neuro: A&O x 3, +generalized weakness upper and lower extremities, no other focal deficits noted, but moves extremities spontaneously and able to ambulate short distances (bathroom),normal affect Skin: warm, dry Results & Data ([facility]) Vital Signs (Past 12 Hours) Vital Signs Temp Pulse Pulse Resp BP Pulse Ox 08/01/19 07:52 37 C 69 16 151/69 H 96 08/01/19 07:00 73 18 93 08/01/19 04:00 36.6 C 68 20 130/69 94 08/01/19 00:10 36.7 C 70 20 132/68 92 07/31/19 23:20 87 Laboratory Results 08/01/19 08/01/19 07/31/19 Range/Units 02:13 01:45 19:50 WBC (4.8-10.8) K/uL RBC (4.2-5.4) M/uL Hgb (12.0-16.0) g/dL Hct (37-47) % MCV (80-100) fL MCH (25-34) pg MCHC (32-36) g/dL RDW Std Deviation (36.4-46.3) fL RDW Coeff of Leo (11.5-14.5) % Plt Count (130-400) K/uL MPV (7.4-10.4) fL Immature Gran % (Auto) % Neut % (Auto) % Lymph % (Auto) % Leslie % (Auto) % Eos % (Auto) % Baso % (Auto) % Immature Gran # (Auto) (0.00-0.02) K/uL Neut # (Auto) (1.4-6.5) K/uL Lymph # (Auto) (1.2-3.4) K/uL Leslie # (Auto) (0.11-0.59) K/uL Eos # (Auto) (0-0.5) K/uL Baso # (Auto) (0-0.2) K/uL Sodium (136-145) mmol/L Potassium (3.5-5.1) mmol/L Chloride (98-107) mmol/L Carbon Dioxide (21-32) mmol/L Anion Gap (3-11) BUN (7-18) mg/dl Creatinine (0.6-1.2) mg/dl Est Cr Clr Drug Dosing ml/min Est GFR ( Amer) Est GFR (Non-Af Amer) BUN/Creatinine Ratio (10-20) Glucose (70-99) mg/dl Calcium (8.5-10.1) mg/dl Magnesium (1.8-2.4) mg/dl Total Bilirubin (0.2-1) mg/dl AST (15-37) U/L ALT (12-78) U/L Alkaline Phosphatase (45-117) U/L Troponin I 0.052 H* 0.082 H* (0-0.045) ng/ml Total Protein (6.4-8.2) gm/dl Albumin (3.4-5.0) gm/dl Globulin (2.5-4.0) gm/dl Albumin/Globulin Ratio (0.9-2) TSH (0.300-4.500) uIu/ml Urine Color Yellow Urine Appearance Cloudy A (Clear) Urine pH 7.0 (4.5-7.5) Ur Specific [place] 1.013 (1.000-1.030) Urine Protein Negative (Negative) Urine Glucose (UA) Negative (Negative) Urine Ketones Negative (Negative) Urine Blood 2+ H (Negative) Urine Nitrite Negative (Negative) Urine Bilirubin Negative (Negative) Urine Urobilinogen Negative (Negative) Ur Leukocyte Esterase Negative (Negative) Urine WBC (Auto) 10-30 H (0-5) /hpf Urine RBC (Auto) 5-10 H (0-4) /hpf U Hyaline Cast (Auto) 0 (0-5) /lpf U Epithel Cells (Auto) 10-20 H (0-5) /lpf Urine Bacteria (Auto) Negative (Negative) Ur Renal Epithelial Cell Not Reportable Urine Yeast Not Reportable Influenza Type A Ag (Neg) Influenza Type B Ag (Neg) 07/31/19 07/31/19 07/31/19 Range/Units 16:05 14:25 14:25 WBC 6.56 (4.8-10.8) K/uL RBC 3.77 L (4.2-5.4) M/uL Hgb 12.5 (12.0-16.0) g/dL Hct 38.6 (37-47) % MCV 102.4 H (80-100) fL MCH 33.2 (25-34) pg MCHC 32.4 (32-36) g/dL RDW Std Deviation 51.9 H (36.4-46.3) fL RDW Coeff of Leo 13.8 (11.5-14.5) % Plt Count 136 (130-400) K/uL MPV 10.5 H (7.4-10.4) fL Immature Gran % (Auto) 0.3 % Neut % (Auto) 67.6 % Lymph % (Auto) 22.4 % Leslie % (Auto) 8.1 % Eos % (Auto) 1.4 % Baso % (Auto) 0.2 % Immature Gran # (Auto) 0.02 (0.00-0.02) K/uL Neut # (Auto) 4.44 (1.4-6.5) K/uL Lymph # (Auto) 1.47 (1.2-3.4) K/uL Leslie # (Auto) 0.53 (0.11-0.59) K/uL Eos # (Auto) 0.09 (0-0.5) K/uL Baso # (Auto) 0.01 (0-0.2) K/uL Sodium 137 (136-145) mmol/L Potassium 4.2 (3.5-5.1) mmol/L Chloride 103 (98-107) mmol/L Carbon Dioxide 32 (21-32) mmol/L Anion Gap 2.0 L (3-11) BUN 22 H (7-18) mg/dl Creatinine 1.09 (0.6-1.2) mg/dl Est Cr Clr Drug Dosing 56.9 ml/min Est GFR ( Amer) 59.6 Est GFR (Non-Af Amer) 51.4 BUN/Creatinine Ratio 20.1 H (10-20) Glucose 113 H (70-99) mg/dl Calcium 8.5 (8.5-10.1) mg/dl Magnesium 2.5 H (1.8-2.4) mg/dl Total Bilirubin 0.4 (0.2-1) mg/dl AST 15 (15-37) U/L ALT 17 (12-78) U/L Alkaline Phosphatase 64 (45-117) U/L Troponin I 0.103 H* (0-0.045) ng/ml Total Protein 5.6 L (6.4-8.2) gm/dl Albumin 2.8 L (3.4-5.0) gm/dl Globulin 2.8 (2.5-4.0) gm/dl Albumin/Globulin Ratio 1.0 (0.9-2) TSH 1.140 (0.300-4.500) uIu/ml Urine Color Urine Appearance (Clear) Urine pH (4.5-7.5) Ur Specific [place] (1.000-1.030) Urine Protein (Negative) Urine Glucose (UA) (Negative) Urine Ketones (Negative) Urine Blood (Negative) Urine Nitrite (Negative) Urine Bilirubin (Negative) Urine Urobilinogen (Negative) Ur Leukocyte Esterase (Negative) Urine WBC (Auto) (0-5) /hpf Urine RBC (Auto) (0-4) /hpf U Hyaline Cast (Auto) (0-5) /lpf U Epithel Cells (Auto) (0-5) /lpf Urine Bacteria (Auto) (Negative) Ur Renal Epithelial Cell Urine Yeast Influenza Type A Ag Neg for Influ A (Neg) Influenza Type B Ag Neg for Influ B (Neg) Medications Administered Current Inpatient Medications Acetaminophen (Tylenol) 650 mg PO Q4H PRN PRN Reason: Pain or Fever Stop: 08/30/19 17:20 Last Admin: 07/31/19 21:27 Dose: 650 mg Documented by: Albuterol (Duoneb) 3 ml NEB QIDR [facility] Stop: 08/30/19 18:59 Last Admin: 08/01/19 07:00 Dose: 3 ml Documented by: Amitriptyline HCl (Elavil) 25 mg PO HS [facility] Stop: 08/30/19 20:59 Last Admin: 07/31/19 20:31 Dose: 25 mg Documented by: Aspirin ([facility]rin [facility]ab) [facility] [place]: 08/31/19 08:59 Last Admin: 08/01/19 08:04 Dose: 81 mg Documented by: Baclofen (Lioresal) 10 mg PO BID [facility] Stop: 08/30/19 20:59 Last Admin: 08/01/19 08:04 Dose: 10 mg Documented by: Citalopram Hydrobromide (Celexa) 30 mg PO QAM [facility] Stop: 08/31/19 08:59 Last Admin: 08/01/19 08:03 Dose: 30 mg Documented by: Docusate Sodium (Colace) 100 mg PO BID [facility] Stop: 08/30/19 20:59 Last Admin: 08/01/19 08:05 Dose: 100 mg Documented by: Doxycycline Hyclate (Vibramycin) 100 mg PO BID [facility] Stop: 08/07/19 20:59 Last Admin: 08/01/19 08:03 Dose: 100 mg Documented by: Fluticasone Propionate (Flonase) 2 sprays LUCIANO DAILY PRN PRN Reason: Allergy Symptoms Stop: 08/30/19 17:20 Fluticasone/Vilanterol (Breo Ellipta 100/25 Mcg Inh) 1 puffs INH DAILY [facility] Stop: 08/31/19 08:59 Last Admin: 08/01/19 08:04 Dose: 1 puffs Documented by: Furosemide (Lasix) 20 mg PO QAM [facility] Stop: 08/31/19 08:59 Last Admin: 08/01/19 08:03 Dose: 20 mg Documented by: Heparin Sodium (Porcine) (Heparin Sodium (Porcine)) 5,000 units SQ Q8 [facility] Stop: 08/30/19 21:59 Last Admin: 08/01/19 05:49 Dose: 5,000 units Documented by: Methylprednisolone 40 mg/ (Syringe) 0.64 mls @ 1.5 mls/min IV Q8H [facility] Stop: 08/30/19 17:59 Last Admin: 08/01/19 01:34 Dose: 1.5 mls/min Documented by: Lisinopril (Zestril) 5 mg PO QAM [facility] Stop: 08/31/19 08:59 Last Admin: 08/01/19 08:03 Dose: 5 mg Documented by: Lorazepam (Ativan) 0.5 mg PO TID PRN PRN Reason: Anxiety Stop: 08/30/19 17:20 Last Admin: 08/01/19 05:50 Dose: 0.5 mg Documented by: Metoprolol Succinate (Toprol Xl) 25 mg PO QAM [facility] Stop: 08/31/19 08:59 Last Admin: 08/01/19 08:05 Dose: 25 mg Documented by: Montelukast Sodium (Singulair) 10 mg PO HS [facility] Stop: 08/30/19 20:59 Last Admin: 07/31/19 20:32 Dose: 10 mg Documented by: Pantoprazole Sodium (Protonix) 40 mg PO QAM [facility] Stop: 08/31/19 08:59 Last Admin: 08/01/19 08:06 Dose: 40 mg Documented by: Polyethylene Glycol (Miralax Powder Packet) 17 gm PO DAILY PRN PRN Reason: Constipation Stop: 08/30/19 17:20 Pregabalin (Lyrica) 25 mg PO TID [facility] Stop: 08/30/19 20:59 Last Admin: 08/01/19 08:02 Dose: 25 mg Documented by: Pregabalin (Lyrica) 100 mg PO TID [facility] Stop: 08/30/19 20:59 Last Admin: 08/01/19 08:02 Dose: 100 mg Documented by: Simvastatin (Zocor) 40 mg PO [facility] Stop: 08/30/19 20:59 Last Admin: 07/31/19 20:31 Dose: 40 mg Documented by: Trazodone HCl (Desyrel) 50 mg PO [facility] Stop: 08/30/19 20:59 Last Admin: 07/31/19 20:31 Dose: 50 mg Documented by:
[2019-08-01 10:19] LABS: BUN Creatinine Ratio 15.3 (10-20); Creatinine Clr Calc Pharmacy 41.8 ml/min; Est GFR (African American) 41.5; Est GFR (Non-African American) 35.8; Magnesium 2.5 mg/dl (1.8-2.4); Potassium 3.8 mmol/L (3.5-5.1)
[2019-08-01] MEDS: LIDOCAINE 5% 1 PATCH TD SCH ×2 (11:11→11:12)
[2019-08-01] MEDS: guaiFENesin 600 MG TABCR PO SCH ×2 (11:11→21:01)
[2019-08-01] MEDS ORDERED: CARBOHYDRATES FOR HYPOGLYCEMIA PO PRN (14:15)
[2019-08-01] MEDS ORDERED: GLUCOSE 10 TABS/TUBE PO PRN (14:15)
[2019-08-01] MEDS ORDERED: GLUCOSE 40% GEL 15 GM TUBE PO PRN (14:15)
[2019-08-01] MEDS ORDERED: GLUCAGON FOR INJ 1 MG VIAL SQ PRN (14:15)
[2019-08-01] MEDS ORDERED: DEXTROSE 50% 50 ML SYRINGE IV PRN (14:15)
--- NOTE | 2019-08-01 16:34 | Electrocardiogram Report ---
Test Reason : Blood Pressure : / mmHG Vent. Rate : 071 BPM Atrial Rate : 071 BPM P-R Int : 176 ms QRS Dur : 090 ms QT Int : 432 ms P-R-T Axes : 038 063 070 degrees QTc Int : 469 ms Normal sinus rhythm Normal ECG When compared with ECG of 31-JUL-2019 14:11, No significant change was found Confirmed by Star Slater ([id number]) on 08/01/2019 4:34:14 PM Referred By: REFERRED SELF Confirmed By:Star Slater
[2019-08-01] MEDS: INSULIN ASPART 100 UNITS/ML 3 ML PEN SC SCH ×2 (17:00→21:03)
[2019-08-01] MEDS: TRAZODONE HCL 50 MG TAB PO SCH (21:00)
[2019-08-01] MEDS: MONTELUKAST SODIUM 10 MG TABLET PO SCH (21:01)
[2019-08-01] MEDS: AMITRIPTYLINE HCL 25 MG TAB PO SCH (21:01)
[2019-08-01] MEDS: SIMVASTATIN 40 MG TAB PO SCH (21:02)
[2019-08-01] MEDS: ACETAMINOPHEN 325 MG TAB PO PRN (21:05)
[2019-08-02] MEDS: LORazepam 0.5 MG TAB PO PRN ×3 (02:12→18:28)
[2019-08-02] MEDS: methylPREDNISolone 40 MG in SYRINGE 0 ML IV SCH ×3 (02:12→21:08)
[2019-08-02] MEDS: HEPARIN SOD 5,000 UNIT/0.5 ML VIAL SQ SCH ×3 (06:06→21:04)
[2019-08-02 06:38] LABS: Hematocrit (blood only) 38.8 % (37-47); Hemoglobin 12.6 g/dL (12.0-16.0); Mean Corpuscular Hemoglobin 32.8 pg (25-34); Mean Corpuscular Hgb Conc 32.5 g/dL (32-36); Platelet Count 160 K/uL (130-400); RDW Coefficient of Variation 13.8 % (11.5-14.5); RDW Standard Deviation 50.3 fL (36.4-46.3); Red Blood Count 3.84 M/uL (4.2-5.4); White Blood Count 10.91 K/uL (4.8-10.8)
[2019-08-02 07:18] LABS: BUN Creatinine Ratio 22.4 (10-20); Calcium 9.1 mg/dl (8.5-10.1); Creatinine Clr Calc Pharmacy 45.2 ml/min; Est GFR (African American) 45.6; Est GFR (Non-African American) 39.3; Magnesium 2.5 mg/dl (1.8-2.4); Potassium 4.1 mmol/L (3.5-5.1)
[2019-08-02] MEDS: ALBUT/IPRATROP 3MG/0.5MG NEB 3 ML VIAL NEB SCH ×4 (07:24→19:34)
[2019-08-02] MEDS: INSULIN ASPART 100 UNITS/ML 3 ML PEN SC SCH ×4 (08:49→21:03)
[2019-08-02] MEDS: PREGABALIN 100 MG CAP PO SCH ×3 (08:55→20:25)
[2019-08-02] MEDS: METOPROLOL SUCC 25MG EXT REL TAB PO SCH (08:55)
[2019-08-02] MEDS: PREGABALIN 25 MG CAP PO SCH ×3 (08:55→20:27)
[2019-08-02] MEDS: ASPIRIN 81 MG ECTAB PO SCH (08:56)
[2019-08-02] MEDS: CITALOPRAM 20 MG TAB PO SCH (08:56)
[2019-08-02] MEDS: PANTOprazole 40 MG TAB PO SCH (08:56)
[2019-08-02] MEDS: FUROSEMIDE 20 MG TAB PO SCH (08:56)
--- NOTE | 2019-08-02 08:56 | Hospitalist Progress Note ---
Date of Service August 02, 2019 Assessment & Plan (1) Acute exacerbation of chronic obstructive pulmonary disease (COPD): Pt is 68 y/o F with PMH COPD on 3L, HTN, HLD, h/o PE in 2013, depression, anxiety, CKD III, lumbar radiculopathy, neuropathy, GERD presented to ER with complaint of increased shortness of breath and weakness x 2 days. In ER afebrile, P: 108 down to 75, RR: 20, BP: 138/72, 94% on 3L oxygen via [place] No leukocytosis, influenza swab THROAT: No sore throat, difficulty swallowing, or hoarseness. CXR: Minimal linear atelectasis right midlung. -In ER given Solu-Medrol 125 mg IV, neb treatment -Continue chronic supplemental oxygen at 3 L but adjust to goal O2 sats of 86- 92% -Duo nebs -Solu-Medrol 40 mg every 8 hours -Doxycycline -Continue home inhalers, Singulair (2) Weakness: Generalized weakness probable secondary to COPD exacerbation and illness -PT/OT eval (3) Elevated troponin: Troponin: 0.103. No EKG changes. No chest pain Probable demand ischemia - troponin trended down -Consider echo, cardiology consult if troponin increasing or develops CP (4) Hypertension: Stable -Continue metoprolol, lisinopril, Lasix (5) CKD (chronic kidney disease) stage 3, GFR 30-59 ml/min: Cr: 1.09. Baseline Cr~1.2 BLANCO on CKD stage 3 -Cr elevated at 1.47 (on 07/31) - now down to 1.36 (08/01) - cont. to monitor -Avoid nephrotoxic agents when possible (6) Hyperlipidemia: -Continue simvastatin (7) GERD (gastroesophageal reflux disease): -Continue PPI (8) Anxiety: (9) Depression: -Continue citalopram, ativan prn (10) Lumbar radiculopathy: Chronic low back pain. -Continue Lyrica, amitriptyline -will add lidocaine patches as pt reports burning buttocks pain (11) Morbid obesity: BMI: 51 -Lifestyle modifications recommended DVT Prophylaxis -Heparin SQ Dispo: PT eval - recommend inpt rehab (likely [facility]), if improves before d/c, could possibly return home w/ HH PT DNR/DNI as per discussion with pt Follows with Dr Garcia for routine care Admission and Anticipated Discharge Date Admission Date: July 31, 2019 Subjective Pt continues to complain of b/l buttocks burning pain, says she has had it for past several years. Talked to the son from pt's phone at the bedside. Seems to be ongoing unfortunate issue for the pt. The son says that pt has been seen by PCP and neurologist for this. He was not present at those appointments. Inquiring about possible injections, referred to outpt providers after her breathing is better, also encouraged pt to work w/ PT. Pt reports that her PCP started her on lyrica for her sciatica pain and that she takes ativan prescribed by her psychiatrist. Pt reports that only ativan helps with buttocks pain. Pt reports that her anxiety is related to the fact that she is loosing her eye sight from macular degeneration. Plan for inpt rehab, [facility] after discharge. Pt reports using 3L at baseline (for several months now, previously was on 2L at baseline). O2 sats goal 86-92% given her COPD Review of Systems Review of Systems: All systems reviewed & are unremarkable except as noted in HPI & below Constitutional: + body aches (buttocks pain c/w sciatica); no fever and no chills Respiratory: + cough (improved) and + dyspnea (improved) Cardiovascular: no chest pain and no palpitations Gastrointestinal: no abdominal pain, no nausea and no vomiting Physical Exam Physical Exam: General: Elderly morbidly obese female, in no acute respiratory distress, on 3L O2, satting 96% Head: normocephalic, atraumatic Eyes: PERRL, EOM's intact, conjunctiva non-injected, anicteric ENT: normal inspection external ears, nose, mucous membranes moist Neck: supple, trachea midline Lungs: no respiratory distress on 3L oxygen via [place], able to speak in full sentences, +diffuse mild wheezing, faint rhonchi CV: RRR, +systolic murmur, no JVD, trace pretibial edema Abd: normal BS, protuberant, soft, non-tender Ext: no cyanosis, no calf tenderness Neuro: A&O x 3, +generalized weakness upper and lower extremities, no other focal deficits noted, but moves extremities spontaneously and able to ambulate short distances (bathroom),normal affect Skin: warm, dry Results & Data ([facility]) Vital Signs (Past 12 Hours) Vital Signs Temp Pulse Pulse Resp BP Pulse Ox 08/02/19 07:47 36.2 C L 79 18 154/66 H 92 08/02/19 07:25 87 18 92 08/02/19 03:25 36.3 C L 71 19 137/67 92 08/01/19 23:58 36.6 C 78 18 146/68 H 91 08/01/19 23:30 79 Laboratory Results 08/02/19 08/02/19 08/02/19 Range/Units 07:31 06:06 06:06 WBC 10.91 H (4.8-10.8) K/uL RBC 3.84 L (4.2-5.4) M/uL Hgb 12.6 (12.0-16.0) g/dL Hct 38.8 (37-47) % MCV 101.0 H (80-100) fL MCH 32.8 (25-34) pg MCHC 32.5 (32-36) g/dL RDW Std Deviation 50.3 H (36.4-46.3) fL RDW Coeff of Leo 13.8 (11.5-14.5) % Plt Count 160 (130-400) K/uL MPV 11.0 H (7.4-10.4) fL Sodium 138 (136-145) mmol/L Potassium 4.1 (3.5-5.1) mmol/L Chloride 103 (98-107) mmol/L Carbon Dioxide 28 (21-32) mmol/L Anion Gap 7.0 (3-11) BUN 30 H (7-18) mg/dl Creatinine 1.36 H (0.6-1.2) mg/dl Est Cr Clr Drug Dosing 45.2 ml/min Est GFR ( Amer) 45.6 Est GFR (Non-Af Amer) 39.3 BUN/Creatinine Ratio 22.4 H (10-20) Glucose 154 H (70-99) mg/dl POC Glucose 166 H (70-99) mg/dl Calcium 9.1 (8.5-10.1) mg/dl Magnesium 2.5 H (1.8-2.4) mg/dl 08/01/19 08/01/19 08/01/19 Range/Units 20:57 16:53 09:45 WBC (4.8-10.8) K/uL RBC (4.2-5.4) M/uL Hgb (12.0-16.0) g/dL Hct (37-47) % MCV (80-100) fL MCH (25-34) pg MCHC (32-36) g/dL RDW Std Deviation (36.4-46.3) fL RDW Coeff of Leo (11.5-14.5) % Plt Count (130-400) K/uL MPV (7.4-10.4) fL Sodium 138 (136-145) mmol/L Potassium 3.8 (3.5-5.1) mmol/L Chloride 102 (98-107) mmol/L Carbon Dioxide 30 (21-32) mmol/L Anion Gap 6.0 (3-11) BUN 23 H (7-18) mg/dl Creatinine 1.47 H D (0.6-1.2) mg/dl Est Cr Clr Drug Dosing 41.8 ml/min Est GFR ( Amer) 41.5 Est GFR (Non-Af Amer) 35.8 BUN/Creatinine Ratio 15.3 (10-20) Glucose 246 H (70-99) mg/dl POC Glucose 179 H 134 H (70-99) mg/dl Calcium 9.0 (8.5-10.1) mg/dl Magnesium 2.5 H (1.8-2.4) mg/dl Medications Administered Current Inpatient Medications Acetaminophen (Tylenol) 650 mg PO Q4H PRN PRN Reason: Pain or Fever Stop: 08/30/19 17:20 Last Admin: 08/01/19 21:05 Dose: 650 mg Documented by: Albuterol (Duoneb) 3 ml NEB QIDR [facility] Stop: 08/30/19 18:59 Last Admin: 08/02/19 07:24 Dose: 3 ml Documented by: Amitriptyline HCl (Elavil) 25 mg PO HS [facility] Stop: 08/30/19 20:59 Last Admin: 08/01/19 21:01 Dose: 25 mg Documented by: Aspirin (Ecotrin Ectab) 81 mg PO QAM [facility] Stop: 08/31/19 08:59 Last Admin: 08/01/19 08:04 Dose: 81 mg Documented by: Baclofen (Lioresal) 10 mg PO BID [facility] Stop: 08/30/19 20:59 Last Admin: 08/01/19 20:59 Dose: 10 mg Documented by: Citalopram Hydrobromide (Celexa) 30 mg PO QAM [facility] Stop: 08/31/19 08:59 Last Admin: 08/01/19 08:03 Dose: 30 mg Documented by: Dextrose (Dextrose 50%) 25 - 50 ml IV UD PRN; Protocol PRN Reason: Hypoglycemia Protocol Stop: 08/31/19 14:14 Docusate Sodium (Colace) 100 mg PO BID [facility] Stop: 08/30/19 20:59 Last Admin: 08/01/19 20:59 Dose: 100 mg Documented by: Doxycycline Hyclate (Vibramycin) 100 mg PO BID [facility] Stop: 08/07/19 20:59 Last Admin: 08/01/19 21:00 Dose: 100 mg Documented by: Fluticasone Propionate (Flonase) 2 sprays [place]CI[place]O DAILY PRN PRN Reason: Allergy Symptoms Stop: 08/30/19 17:20 Fluticasone/Vilanterol (Breo Ellipta 100/25 Mcg Inh) 1 puffs INH DAILY [facility] Stop: 08/31/19 08:59 Last Admin: 08/01/19 08:04 Dose: 1 puffs Documented by: Furosemide (Lasix) 20 mg PO QAM [facility] Stop: 08/31/19 08:59 Last Admin: 08/01/19 08:03 Dose: 20 mg Documented by: Glucagon (Glucagen) 1 mg SQ UD PRN; Protocol PRN Reason: Hypoglycemia Protocol Stop: 08/31/19 14:14 Glucose (Glucose 40%) 15 - 30 gm PO UD PRN; Protocol PRN Reason: Hypoglycemia Protocol Stop: 08/31/19 14:14 Glucose (Dex4 Glucose) 4 - 8 tabs PO UD PRN; Protocol PRN Reason: Hypoglycemia Protocol Stop: 08/31/19 14:14 Guaifenesin (Mucinex) 600 mg PO Q12 [facility] Stop: 08/31/19 09:29 Last Admin: 08/01/19 21:01 Dose: 600 mg Documented by: Heparin Sodium (Porcine) (Heparin Sodium (Porcine)) 5,000 units SQ Q8 [facility] Stop: 08/30/19 21:59 Last Admin: 08/02/19 06:06 Dose: 5,000 units Documented by: Methylprednisolone 40 mg/ (Syringe) 0.64 mls @ 1.5 mls/min IV Q8H [facility] Stop: 08/30/19 17:59 Last Admin: 08/02/19 02:12 Dose: 1.5 mls/min Documented by: Insulin Aspart (Novolog Flexpen) 0 units SC ACHS [facility] Stop: 08/31/19 16:29 Last Admin: 08/02/19 08:49 Dose: 9 units Documented by: Lidocaine (Lidoderm 5%) 1 patch TD [facility] Stop: 08/31/19 10:59 Last Admin: 08/01/19 11:11 Dose: 1 patch Documented by: Lidocaine (Lidoderm 5%) 1 patch TD [facility] Stop: 08/31/19 10:59 Last Admin: 08/01/19 11:12 Dose: 1 patch Documented by: Lisinopril (Zestril) 5 mg PO [facility] Stop: 08/31/19 08:59 Last Admin: 08/01/19 08:03 Dose: 5 mg Documented by: Lorazepam (Ativan) 0.5 mg PO TID PRN PRN Reason: Anxiety Stop: 08/30/19 17:20 Last Admin: 08/02/19 02:12 Dose: 0.5 mg Documented by: Metoprolol Succinate (Toprol Xl) 25 mg PO [facility] Stop: 08/31/19 08:59 Last Admin: 08/01/19 08:05 Dose: 25 mg Documented by: Miscellaneous (Remove Lidoderm Patch) 1 ea N/A DAILY@2099 [facility] Stop: 08/31/19 20:59 Last Admin: 08/01/19 21:02 Dose: Not Given Documented by: Miscellaneous (Remove Lidoderm Patch) 1 ea N/A DAILY@2100 [facility] Stop: 08/31/19 20:59 Last Admin: 08/01/19 21:02 Dose: Not Given Documented by: Miscellaneous (Carbohydrates For Hypoglycemia) 15 - 30 gm PO UD PRN PRN Reason: Hypoglycemia Treatment Stop: 08/31/19 14:14 Montelukast Sodium (Singulair) 10 mg PO [facility] Stop: 08/30/19 20:59 Last Admin: 08/01/19 21:01 Dose: 10 mg Documented by: [facility]oprazole [facility] ([facility]) [facility] [place]: 08/31/19 08:59 Last Admin: 08/01/19 08:06 Dose: 40 mg Documented by: Polyethylene Glycol (Miralax Powder Packet) 17 gm PO DAILY PRN PRN Reason: Constipation Stop: 08/30/19 17:20 Pregabalin (Lyrica) 25 mg PO TID [facility] Stop: 08/30/19 20:59 Last Admin: 08/01/19 20:58 Dose: 25 mg Documented by: Pregabalin (Lyrica) 100 mg PO TID [facility] Stop: 08/30/19 20:59 Last Admin: 08/01/19 20:59 Dose: 100 mg Documented by: Simvastatin (Zocor) 40 mg PO [facility] Stop: 08/30/19 20:59 Last Admin: 08/01/19 21:02 Dose: 40 mg Documented by: Trazodone HCl (Desyrel) 50 mg PO [facility] Stop: 08/30/19 20:59 Last Admin: 08/01/19 21:00 Dose: 50 mg Documented by:
[2019-08-02] MEDS: lisinopriL 5 MG TAB PO SCH (08:57)
[2019-08-02] MEDS: DOXYCYCLINE HYCLATE 100 MG CAP PO SCH ×2 (08:58→20:24)
[2019-08-02] MEDS: DOCUSATE SODIUM 100 MG CAP PO SCH ×2 (08:58→20:27)
[2019-08-02] MEDS: FLUTICASONE/VILANTEROL 100/25MCG 14 PUFFS/INHALER INH SCH (08:58)
[2019-08-02] MEDS: guaiFENesin 600 MG TABCR PO SCH ×2 (08:59→20:24)
[2019-08-02] MEDS: BACLOFEN 10 MG TAB PO SCH ×2 (08:59→20:27)
[2019-08-02] MEDS ORDERED: methylPREDNISolone 40 MG in SYRINGE 0 ML IV SCH (09:00)
[2019-08-02] MEDS: LIDOCAINE 5% 1 PATCH TD SCH ×2 (09:01→09:02)
[2019-08-02] MEDS: ACETAMINOPHEN 325 MG TAB PO PRN ×2 (12:20→20:35)
[2019-08-02] MEDS ORDERED: BUDESONIDE 90 MCG INH INH SCH (12:45)
[2019-08-02] MEDS ORDERED: LORazepam 0.5 MG TAB PO STA (13:52)
[2019-08-02] MEDS: SIMVASTATIN 40 MG TAB PO SCH (20:24)
[2019-08-02] MEDS: TRAZODONE HCL 50 MG TAB PO SCH (20:27)
[2019-08-02] MEDS: AMITRIPTYLINE HCL 25 MG TAB PO SCH (20:28)
[2019-08-02] MEDS: MONTELUKAST SODIUM 10 MG TABLET PO SCH (20:29)
[2019-08-03] MEDS: LORazepam 0.5 MG TAB PO PRN ×3 (02:30→18:26)
[2019-08-03] MEDS: methylPREDNISolone 40 MG in SYRINGE 0 ML IV SCH ×3 (06:18→21:50)
[2019-08-03] MEDS: HEPARIN SOD 5,000 UNIT/0.5 ML VIAL SQ SCH ×3 (06:18→21:53)
[2019-08-03] MEDS: ALBUT/IPRATROP 3MG/0.5MG NEB 3 ML VIAL NEB SCH ×4 (07:10→19:10)
[2019-08-03 07:43] LABS: BUN Creatinine Ratio 28.9 (10-20); Calcium 8.9 mg/dl (8.5-10.1); Creatinine Clr Calc Pharmacy 48.4 ml/min; Est GFR (African American) 49.5; Est GFR (Non-African American) 42.7; Magnesium 2.5 mg/dl (1.8-2.4); Phosphorus 3.6 mg/dl (2.5-4.9); Potassium 4.3 mmol/L (3.5-5.1)
[2019-08-03] MEDS: INSULIN ASPART 100 UNITS/ML 3 ML PEN SC SCH ×4 (08:45→21:53)
[2019-08-03] MEDS: FLUTICASONE/VILANTEROL 100/25MCG 14 PUFFS/INHALER INH SCH (08:47)
[2019-08-03] MEDS: lisinopriL 5 MG TAB PO SCH (08:49)
[2019-08-03] MEDS: DOXYCYCLINE HYCLATE 100 MG CAP PO SCH ×2 (08:49→21:48)
[2019-08-03] MEDS: BACLOFEN 10 MG TAB PO SCH ×2 (08:49→21:49)
[2019-08-03] MEDS: ASPIRIN 81 MG ECTAB PO SCH (08:49)
[2019-08-03] MEDS: FUROSEMIDE 20 MG TAB PO SCH (08:49)
[2019-08-03] MEDS: PANTOprazole 40 MG TAB PO SCH (08:50)
[2019-08-03] MEDS: CITALOPRAM 20 MG TAB PO SCH (08:50)
[2019-08-03] MEDS: guaiFENesin 600 MG TABCR PO SCH ×2 (08:50→21:48)
[2019-08-03] MEDS: DOCUSATE SODIUM 100 MG CAP PO SCH ×2 (08:50→21:49)
[2019-08-03] MEDS: METOPROLOL SUCC 25MG EXT REL TAB PO SCH (08:50)
[2019-08-03] MEDS: PREGABALIN 100 MG CAP PO SCH ×3 (08:53→21:47)
[2019-08-03] MEDS: PREGABALIN 25 MG CAP PO SCH ×3 (08:53→21:53)
[2019-08-03] MEDS: LIDOCAINE 5% 1 PATCH TD SCH ×4 (10:03→10:22)
[2019-08-03] MEDS ORDERED: LORazepam 0.5 MG TAB PO ONE (15:15)
[2019-08-03] MEDS: TRAZODONE HCL 50 MG TAB PO SCH (21:47)
[2019-08-03] MEDS: MONTELUKAST SODIUM 10 MG TABLET PO SCH (21:48)
[2019-08-03] MEDS: SIMVASTATIN 40 MG TAB PO SCH (21:48)
[2019-08-03] MEDS: AMITRIPTYLINE HCL 25 MG TAB PO SCH (21:49)
[2019-08-04] MEDS: LORazepam 0.5 MG TAB PO PRN ×3 (03:24→15:25)
[2019-08-04] MEDS: methylPREDNISolone 40 MG in SYRINGE 0 ML IV SCH ×2 (05:24→12:49)
[2019-08-04] MEDS: HEPARIN SOD 5,000 UNIT/0.5 ML VIAL SQ SCH ×2 (05:24→12:44)
[2019-08-04] MEDS: ALBUT/IPRATROP 3MG/0.5MG NEB 3 ML VIAL NEB SCH ×3 (07:39→15:28)
[2019-08-04] MEDS: BACLOFEN 10 MG TAB PO SCH (08:41)
[2019-08-04] MEDS: PANTOprazole 40 MG TAB PO SCH (08:41)
[2019-08-04] MEDS: guaiFENesin 600 MG TABCR PO SCH (08:42)
[2019-08-04] MEDS: CITALOPRAM 20 MG TAB PO SCH (08:42)
[2019-08-04] MEDS: DOXYCYCLINE HYCLATE 100 MG CAP PO SCH ×2 (08:42→16:27)
[2019-08-04] MEDS: DOCUSATE SODIUM 100 MG CAP PO SCH (08:42)
[2019-08-04] MEDS: lisinopriL 5 MG TAB PO SCH (08:42)
[2019-08-04] MEDS: ASPIRIN 81 MG ECTAB PO SCH (08:43)
[2019-08-04] MEDS: FUROSEMIDE 20 MG TAB PO SCH (08:43)
[2019-08-04] MEDS: METOPROLOL SUCC 25MG EXT REL TAB PO SCH (08:43)
[2019-08-04] MEDS: FLUTICASONE/VILANTEROL 100/25MCG 14 PUFFS/INHALER INH SCH (08:44)
[2019-08-04] MEDS: PREGABALIN 100 MG CAP PO SCH ×2 (08:46→12:44)
[2019-08-04] MEDS: PREGABALIN 25 MG CAP PO SCH ×2 (08:46→12:44)
[2019-08-04] MEDS: LIDOCAINE 5% 1 PATCH TD SCH ×2 (08:48)
[2019-08-04] MEDS: INSULIN ASPART 100 UNITS/ML 3 ML PEN SC SCH ×2 (08:49→12:44)
--- NOTE | 2019-08-04 10:29 | Hospitalist Progress Note ---
Date of Service August 03, 2019 Assessment & Plan (1) Acute exacerbation of chronic obstructive pulmonary disease (COPD): Acute on chronic resp. failure secondary to COPD exacerbation Pt is 68 y/o F with PMH COPD on 3L, HTN, HLD, h/o PE in 2013, depression, anxiety, CKD III, lumbar radiculopathy, neuropathy, GERD presented to ER with complaint of increased shortness of breath and weakness x 2 days. In ER afebrile, P: 108 down to 75, RR: 20, BP: 138/72, 94% on 3L oxygen via NC No leukocytosis, influenza swab THROAT: No sore throat, difficulty swallowing, or hoarseness. CXR: Minimal linear atelectasis right midlung. -In ER given Solu-Medrol 125 mg IV, neb treatment -Continue chronic supplemental oxygen, now at 1L O2, goal O2 sats of 86-92% (baseline 2-3L O2) -Duo nebs -cont. Solu-Medrol -Doxycycline -Continue home inhalers, Singulair (2) Weakness: Generalized weakness probable secondary to COPD exacerbation and illness -PT/OT eval (3) Elevated troponin: Troponin: 0.103. No EKG changes. No chest pain Probable demand ischemia - troponin trended down - Consider echo, cardiology consult if troponin increasing or develops CP (4) Hypertension: Stable -Continue metoprolol, lisinopril, Lasix (5) CKD (chronic kidney disease) stage 3, GFR 30-59 ml/min: Cr: 1.09. Baseline Cr~1.2 BLANCO on CKD stage 3 -Cr elevated at 1.47 (on 07/31) - now down to 1.36 (08/01) - cont. to monitor -Avoid nephrotoxic agents when possible (6) Hyperlipidemia: -Continue simvastatin (7) GERD (gastroesophageal reflux disease): -Continue PPI (8) Anxiety: (9) Depression: -Continue citalopram, ativan prn (10) Lumbar radiculopathy: Chronic low back pain. -Continue Lyrica, amitriptyline -added lidocaine patches as pt reported burning buttocks pain (11) Morbid obesity: BMI: 51 -Lifestyle modifications recommended DVT Prophylaxis -Heparin SQ Dispo: PT eval - recommend inpt rehab (likely [facility]), if improves before d/c, could possibly return home w/ HH PT DNR/DNI as per discussion with pt Follows with Dr Garcia for routine care Admission and Anticipated Discharge Date Admission Date: July 31, 2019 Subjective No acute events overnight. Pt is lying in bed, comfortable in NAD. Denies any incr. shortness of breath, now using 1L of O 2 at rest. No fever, chills, chest pain, abd. pain, nausea, vomiting. Review of Systems Review of Systems: All systems reviewed & are unremarkable except as noted in HPI & below Constitutional: no fever and no chills Respiratory: + cough (much improved) and + dyspnea (much improved) Cardiovascular: no chest pain and no palpitations Gastrointestinal: no abdominal pain, no nausea and no vomiting Physical Exam Physical Exam: General: Elderly morbidly obese female, in no acute respiratory distress, on 1L O2 Head: normocephalic, atraumatic Eyes: PERRL, EOM's intact, conjunctiva non-injected, anicteric ENT: normal inspection external ears, nose, mucous membranes moist Neck: supple, trachea midline Lungs: no respiratory distress on 1L oxygen via NC, able to speak in full sentences, +diffuse faint wheezing CV: RRR, +systolic murmur, no JVD, trace pretibial edema Abd: normal BS, protuberant, soft, non-tender Ext: no cyanosis, no calf tenderness Neuro: A&O x 3, +generalized weakness upper and lower extremities, no other focal deficits noted, but moves extremities spontaneously and able to ambulate short distances (bathroom),normal affect Skin: warm, dry Results & Data ([facility]) Vital Signs (Past 12 Hours) Vital Signs Temp Pulse Resp BP Pulse Ox 08/04/19 09:17 164/65 H 08/04/19 08:01 36.7 C 68 18 176/74 H 91 08/04/19 07:39 77 18 95 08/04/19 00:35 36.8 C 68 18 171/52 H 91 08/04/19 00:07 36.9 C 71 18 131/55 L 92
[2019-08-04 15:29] LABS: BUN Creatinine Ratio 29.3 (10-20); Calcium 8.7 mg/dl (8.5-10.1); Creatinine Clr Calc Pharmacy 46.5 ml/min; Est GFR (African American) 47.3; Est GFR (Non-African American) 40.8; Magnesium 2.3 mg/dl (1.8-2.4); Potassium 4.4 mmol/L (3.5-5.1)
--- NOTE | 2019-08-04 16:10 | Discharge Summary ---
Date of Service August 04, 2019 Admission HPI Per Admitting Provider Pt is 68 y/o F with PMH COPD on 3L, HTN, HLD, h/o PE in 2014, depression, anxiety, CKD III, lumbar radiculopathy, neuropathy, GERD presented to ER with complaint of increased shortness of breath and weakness x 2 days. Patient reports intermittent dry cough for the past month. States past 2 days increased generalized weakness and weakness of bilateral extremities and feeling shaky. This morning she had difficulty getting off toilet secondary to weakness and lowered herself to the floor and was unable to get herself off the floor. Denies falls. Walks with assistance of walker. Having decreased appetite past 2 days. Denies any chest pain, fever, chills. Reports chronic BLE edema denies any increased. Denies recent travel. Reports had influenza vaccine this season. Reports [id number] with URI symptoms last week. Denies diaphoresis, N/V/D/C, MCDANIELS, dizziness, syncope, new vision changes, neck pain, orthopnea, palpitations, sore throat, choking, otalgia, rhinorrhea, abdominal pain, paresthesias, rashes, urinary symptoms. Admission Exam Per Admitting Provider General: no distress on 3L chronic oxygen, obese Head: normocephalic, atraumatic Eyes: PERRL, EOM's intact, conjunctiva non-injected, anicteric ENT: normal inspection external ears, nose, mucous membranes moist Neck: supple, trachea midline Lungs: no respiratory distress on 3L oxygen via NC, able to speak in sentences, +diffuse wheezing throughout CV: RRR, +systolic murmur, no JVD, trace pretibial edema Abd: normal BS, protuberant, soft, non-tender Ext: no cyanosis, no calf tenderness Neuro: A&O x 3, +generalized weakness upper and lower extremities, no other focal deficits noted, normal affect Skin: warm, dry Principal Diagnosis Acute on chronic resp. failure due to COPD exacerbation Discharge Exam General: Elderly morbidly obese female, in no acute respiratory distress, on 1L O2 Head: normocephalic, atraumatic Eyes: PERRL, EOM's intact, conjunctiva non-injected, anicteric ENT: normal inspection external ears, nose, mucous membranes moist Neck: supple, trachea midline Lungs: no respiratory distress on 1L oxygen via NC, able to speak in full sentences, +diffuse faint wheezing CV: RRR, +systolic murmur, no JVD, trace pretibial edema Abd: normal BS, protuberant, soft, non-tender Ext: no cyanosis, no calf tenderness Neuro: A&O x 3, +generalized weakness upper and lower extremities, no other focal deficits noted, but moves extremities spontaneously and able to ambulate short distances (bathroom),normal affect Skin: warm, dry Discharge Data Allergies Allergy/AdvReac Type Severity Reaction Status Date / Time No Known Allergies Allergy Verified 08/07/19 16:30 Consultations 07/31/19 15:50 ED Decision to Admit Stat 07/31/19 17:21 Consult Case Management - Discharge Planning Routine Hospital Course (1) Acute exacerbation of chronic obstructive pulmonary disease (COPD): Acute on chronic resp. failure secondary to COPD exacerbation Pt is 68 y/o F with PMH COPD on 3L, HTN, HLD, h/o PE in 2013, depression, anxiety, CKD III, lumbar radiculopathy, neuropathy, GERD presented to ER with complaint of increased shortness of breath and weakness x 2 days. In ER afebrile, P: 108 down to 75, RR: 20, BP: 138/72, 94% on 3L oxygen via NC No leukocytosis, influenza swab THROAT: No sore throat, difficulty swallowing, or hoarseness. CXR: Minimal linear atelectasis right midlung. -In ER given Solu-Medrol 125 mg IV, neb treatment -Continue chronic supplemental oxygen, now at 1L O2, goal O2 sats of 86-92% (baseline 2-3L O2) -Duo nebs -cont. Solu-Medrol -Doxycycline -Continue home inhalers, Singulair - Pt will be discharged home on doxycycline and prednisone taper - Recommend to establish care with pulmonary medicine as outpt given her COPD (2) Weakness: Generalized weakness probable secondary to COPD exacerbation and illness -PT/OT eval - recommend inpt rehab - planned to d/c to [facility] but pt pt changed her mind today and strongly prefers to be discharged home - discussed home health and pt is agreeable to that, CM contacted and HH being set up for the pt (3) Elevated troponin: Troponin: 0.103. No EKG changes. No chest pain Probable demand ischemia - troponin trended down - Consider echo, cardiology consult if troponin increasing or develops CP (4) Hypertension: Stable -Continue metoprolol, lisinopril, Lasix (5) CKD (chronic kidney disease) stage 3, GFR 30-59 ml/min: Cr: 1.09. Baseline Cr~1.2 BLANCO on CKD stage 3 -Cr elevated at 1.47 (on 07/31) - then down to 1.36 (08/01) - cont. to monitor - Avoid nephrotoxic agents when possible (6) Hyperlipidemia: -Continue simvastatin (7) GERD (gastroesophageal reflux disease): -Continue PPI (8) Anxiety: (9) Depression: -Continue citalopram, ativan prn (10) Lumbar radiculopathy: Chronic low back pain. -Continue Lyrica, amitriptyline -added lidocaine patches as needed (11) Morbid obesity: BMI: 51 -Lifestyle modifications recommended DVT Prophylaxis -Heparin SQ Dispo: PT eval - recommend inpt rehab (likely [facility]), if improves before d/c, could possibly return home w/ HH PT - planned to d/c to [facility] but pt pt changed her mind today and strongly prefers to be discharged home - discussed home health and pt is agreeable to that, CM contacted and HH being set up for the pt Follows with Dr Garcia for routine care Total Time Total Time Spent Total Time Spent (In Minutes): 40 Total Time Includes: Examination of the Patient, Discharge Planning, Medication Reconciliation and Communication With Other Providers Discharge Plan Discharge Items Patient Disposition: Home - Home Health Services Reason For Visit: COPD EXACERBATION Discharge Diagnosis: Acute on chronic resp. failure due to COPD exacerbation Activity: As commented below Non-emergency contact: Primary Care Provider Call non-emergency contact if: you have any medication questions and your sympt oms worsen Follow-up/Referrals: Rowena Garcia MD [Primary Care Provider] - 08/08/19 10:00 am Diet: Carb Consistent or DM2 and Heart Healthy Addtl Attending Provider Instructions: Follow up with primary care provider in 1 week. Recommend to continue taking antibiotic and prednisone taper. Also recommend to [facility] given your COPD. Home health is being arranged for you by our case management. Pending Studies at Discharge: No Stand-Alone Forms: [employer], Smoking Cessation Medications and DC Order Prescriptions: Continued metoprolol succinate [Toprol XL] 25 mg Tablet Extended Release 24 Hr 25 mg PO QAM RF: 0 Dulera 100-5 mcg/actuation Hfa Aerosol Inhaler 2 puff INHALATION BID RF: 0 citalopram [Celexa] 20 mg tablet 30 mg PO QAM RF: 0 ipratropium-albuterol 0.5 mg-3 mg(2.5 mg base)/3 mL solution for nebulization 3 ml INHALATION Q4H PRN (Reason: Shortness Of Breath Or Wheezing) RF: 0 aspirin 81 mg Tablet,Delayed Release (Dr/Ec) 81 mg PO QAM RF: 0 baclofen 10 mg tablet 10 mg PO BID RF: 0 Incruse Ellipta 62.5 mcg/actuation blister with device 1 inh INHALATION DAILY RF: 0 trazodone 50 mg Tablet 50 mg PO HS RF: 0 polyethylene glycol 3350 [Miralax] 17 gram Powder In Packet 17 g PO DAILY PRN (Reason: Constipation) RF: 0 simvastatin [Zocor] 40 mg Tablet 40 mg PO HS RF: 0 amitriptyline 25 mg tablet 25 mg PO HS RF: 0 lorazepam [Ativan] 0.5 mg tablet 0.5 mg PO TID PRN (Reason: Anxiety) RF: 0 pantoprazole [Protonix] 40 mg Tablet,Delayed Release (Dr/Ec) 40 mg PO QAM RF: 0 montelukast [Singulair] 10 mg Tablet 10 mg PO HS RF: 0 lisinopril [Zestril] 5 mg Tablet 5 mg PO QAM RF: 0 furosemide [Lasix] 20 mg Tablet 20 mg PO QAM RF: 0 ergocalciferol (vitamin D2) [Vitamin D2] 50,000 unit Capsule 50,000 unit PO MO RF: 0 albuterol sulfate [Ventolin HFA] 90 mcg/actuation Hfa Aerosol Inhaler 2 puff INHALATION QID PRN (Reason: Shortness Of Breath Or Wheezing) RF: 0 fluticasone propionate [Flonase Allergy Relief] 50 mcg/actuation [place],Suspension 2 spray INTRANASAL DAILY PRN (Reason: Allergy Symptoms) RF: 0 docusate sodium [Stool Softener] 100 mg Tablet 100 mg PO BID RF: 0 pregabalin [Lyrica] 25 mg Capsule 0 mg PO TID RF: 0 pregabalin [Lyrica] 100 mg Capsule 100 mg PO TID RF: 0 (DME) Oxygen Home Liters Per Minute See Dose Instructions .ROUTE .MEDSUPPLY Qty: 1 RF: 0 No Action prednisone 10 mg tablet See Rx Instructions .ROUTE .COMPLEX RF: 0 Discharge Orders: Discharge Order (Routine); Ordered 08/04/19 Ordered By: Dada Dhaliwal Admission Data Admit Date/Time: 07/31/19 16:01 Attending Provider: Dada Dhaliwal Admit Provider: Alex Hurley Primary Care Provider: Rowena Garcia Other Providers: [facility] ; Alex Hurley ; [facility] Other Interventions: Discharge Summary Assessment (RN) Last Done: 08/04/19 16:18 DC Date/Time DO NOT enter until pt leaves facility: 08/04/19 17:12
== END 2019-08-04 17:12 | disposition home health service (06) | DRG 190 ==
LOC: ED 13:00 → SUATTDRO 16:01 → 2N 16:01 → 3N 08-04 00:51

== ENCOUNTER 2020-09-02 07:56 | Observation (INO) ==
--- NOTE | 2020-09-01 10:54 | Anesthesiology Consultation ---
Date of Service September 01, 2020 Assessment & Plan (1) Encounter for pre-operative examination: Chart Review Chart Review: Acceptable Risk for Surgery (pending anesthesia evaluation DOS ) and Patient NOT seen in Pre Admission Testing Pt on Lovenox- being held day prior to procedure per surgeon H&P (last dose will be at 8am on 09/01/20)- will leave to anesthesia discretion DOS if repeat coags needed DOS. Per travel and nursing assessment on 09/01/20- pt resides in [facility]. No Covid positive cases at this time in [facility] facility. Pt is of sound mind and able to sign own consents. No known Covid positive contacts or Covid related symptoms. Pt does get occ routine Covid testing at [facility]- has always tested negative. Covid test 08/29/20= negative History Surgery Operation Date: 09/02/20 09:50 Proposed Procedures p Right Femur Wound Revision/Hardware Revision(Right) - Andre Tobar MD Height/Weight Height: 5 ft 5 in Weight: 119.295 kg Allergies Allergy/AdvReac Type Severity Reaction Status Date / Time No Known Allergies Allergy Verified 07/13/20 16:22 Medications Home Medications Medication Instructions Recorded Confirmed Last Taken albuterol sulfate [Ventolin HFA] 2 puff INHALATION QID PRN 10/07/18 09/01/20 07/12/20 docusate sodium [Stool Softener] 100 mg PO BID 10/07/18 09/01/20 07/13/20 ergocalciferol (vitamin D2) 50,000 unit PO MO 10/07/18 09/01/20 07/16/19 [Vitamin D2] fluticasone propionate [Flonase 2 spray INTRANASAL DAILY PRN 10/07/18 09/01/20 07/12/20 Allergy Relief] furosemide [Lasix] 20 mg PO QAM 10/07/18 09/01/20 07/13/20 lisinopril [Zestril] 5 mg PO QAM 10/07/18 09/01/20 07/13/20 montelukast [Singulair] 10 mg PO HS 10/07/18 09/01/20 07/12/20 pantoprazole [Protonix] 40 mg PO QAM 10/07/18 09/01/20 07/13/20 simvastatin [Zocor] 40 mg PO HS 10/07/18 09/01/20 07/12/20 trazodone 50 mg PO HS 10/07/18 09/01/20 07/12/20 Oxygen Home #1 ea 10/10/18 08/27/20 Unknown metoprolol succinate [Toprol XL] 25 mg PO QAM 04/30/19 09/01/20 07/13/20 aspirin 81 mg PO QAM 06/14/19 09/01/20 07/13/20 ipratropium-albuterol 3 ml INHALATION Q4H PRN 06/14/19 09/01/20 07/05/19 Incruse Ellipta 1 inh INHALATION DAILY 07/31/19 09/01/20 Unknown lorazepam [Ativan] 1 mg PO BID PRN 07/13/20 09/01/20 07/12/20 acetaminophen 650 mg 650 mg PO Q6 tab 08/27/20 09/01/20 Unknown tablet,extended release ascorbic acid (vitamin C) 500 mg 500 mg PO BID 08/27/20 09/01/20 Unknown tablet citalopram 20 mg tablet 10 mg PO QAM tab 08/27/20 09/01/20 Unknown enoxaparin 40 mg/0.4 mL 40 mg SUBCUT QAM 08/27/20 09/01/20 Unknown subcutaneous syringe guaifenesin 100 mg/5 mL oral liquid 100 mg PO Q4H PRN ml 08/27/20 09/01/20 Unknown hydromorphone 2 mg tablet See Rx Instructions PO Q4H PRN 08/27/20 09/01/20 Unknown lidocaine 5 % topical patch 1 patch TOPICAL BID 08/27/20 09/01/20 Unknown nystatin 100,000 unit/gram topical 1 applic TOPICAL BID 08/27/20 09/01/20 Unknown powder pregabalin 100 mg capsule 150 mg PO TID 08/27/20 09/01/20 Unknown protein supplement See Rx Instructions PO DAILY ml 08/27/20 09/01/20 Unknown amitriptyline 10 mg PO HS 09/01/20 09/01/20 Unknown bisacodyl 10 mg UT DAILY PRN 09/01/20 09/01/20 Unknown cephalexin 500 mg PO TID 09/01/20 09/01/20 Unknown multivitamin 1 tab PO QAM 09/01/20 09/01/20 Unknown polyethylene glycol 3350 [Miralax] 17 g PO DAILY 09/01/20 09/01/20 Unknown Past Medical History Medical History Anxiety Chronic indwelling Gonzalez catheter CKD (chronic kidney disease) stage 3, GFR 30-59 ml/min Baseline creatine around 1.2 COPD (chronic obstructive pulmonary disease) on 3 liters of oxygen per records Depression Diastolic CHF due to valvular disease GERD (gastroesophageal reflux disease) History of pulmonary embolism 2013 Hyperlipidemia Hypertension Lumbar radiculopathy Macular degeneration Moderate aortic stenosis Per 07/14/20 ECHO: PATO 1.3-1.6 cm; AV peak velocity 3.52 m/s; AV mean gradient 21.1 mmHg Morbid obesity Poor vision Recurrent UTI Urinary retention with incomplete bladder emptying Past Family History Family History Other Cancer Past Surgical History Surgical History History of cholecystectomy History of hysterectomy History of right knee surgery History of surgery Right distal femur periprosthetic open reduction 07/14/20 and right femur I&D History of total left knee replacement History of total right hip arthroplasty History of total right knee replacement Social History Smoking Status: Unknown if ever smoked (Unknown [facility] resident ) Alcohol Intake Frequency Comment: Unknown [facility] resident Substance Use Type Other:: Unknown [facility] resident Lab Results Anesthesia Preop Results Results Anesthesia Widget: WBC 4.44 K/uL (4.8-10.8) L 08/29/20 Hgb 10.2 g/dL (12.0-16.0) L 08/29/20 Hct 32.2 % (37-47) L 08/29/20 Plt 252 K/uL (130-400) 08/29/20 Na 134 mmol/L (136-145) L 08/29/20 K 4.3 mmol/L (3.5-5.1) 08/29/20 Cl 99 mmol/L (98-107) 08/29/20 CO2 31 mmol/L (21-32) 08/29/20 BUN 24 mg/dl (7-18) H 08/29/20 Creat 0.97 mg/dl (0.6-1.2) 08/29/20 Glucose Level 107 mg/dl (70-99) H 08/29/20 PT 10.1 Seconds (9.0-12.0) 08/29/20 PTT 26.4 Seconds (21.0-31.0) 08/29/20 INR 1.0 (0.9-1.1) 08/29/20 Lab Comments: Anemia improved from previous labs in July and August of 202008/29/20= T&S= AB negative, antibody negative Testing Laboratory Results 08/18/20= URINE CULTURE: Klebsiella pneumoniae; >100,000 CFU/ml Electrocardiogram Date: 07/14/20 Findings: + NSR @ (81bpm) Normal EKG. Chest X-Ray Date: 08/29/20 Findings: + NAD and + cardiomegaly Emphysema with chronic interstitial coarsening. Linear scarring/atelectasis of the right lung base. Echocardiogram Date: 07/14/20 EF: 65% LV Function: normal RWMA: + none Other Findings: no LVH Mild left and right atrial dilation. Moderate aortic stenosis. (PATO 1.3-1.6 cm; AV peak velocity 3.52 m/s; AV mean gradient 21.1 mmHg) mild AR. Otherwise no significant valvular abnormality. Normal estimated pulmonary pressure. Estimated RVSP 24 mmHg.
--- NOTE | 2020-09-01 13:50 | History & Physical Report ---
Date of Service September 01, 2020 Assessment & Plan (1) Non-healing surgical wound: Patient has a delayed healing wound right lateral thigh. She is status post an open reduction internal fixation for an open right periprosthetic femur fracture. She also has fared hardware. She is scheduled for wound revision and hardware revision of her right femur with Dr. Tobar on September 02, 2020. Risks and complications of the procedure were explained to the patient and include but are not limited to infection pain bleeding scar nerve or blood vessel damage, wound problems, weakness, stiffness, incomplete relief of symptoms, hardware failure, tendon or ligament injury, malunion, nonunion, arth ritis, blood clots embolisms heart attack stroke and . Informed consent will be obtained by Dr. Tobar at the time of surgery. She is aware of the COVID-19 risks and is currently asymptomatic of any COVID-19 symptoms. She did undergo COVID-19 testing on August 29, 2020 in preparation for surgery. She agrees to proceed with surgery. We will obtain a preoperative CBC, CMP, PT, PTT, type and screen and chest x-ray prior to surgery. She did have a recent EKG and echocardiogram. Surgical intervention was also discussed with her son. He agrees to proceed as well. She will be admitted for an overnight stay in [facility] after her procedure. Postoperative course was discussed. She does have a walker to use after surgery. She will be discharged back to [facility] after her procedure. She knows to be n.p.o. after midnight the night prior to her surgery. We are going to hold off on using CHG cloths preoperatively due to her open wound. We will [facility] to hold her Lovenox the day prior to surgery with her last dose being at 8 AM on 09/01/2020. She understands and agrees with the plan. She knows to call with any worsening problems, questions or concerns. History of Present Illness Chief Complaint: Right thigh wound and failed hardware; S/p ORIF right periprosthetic femur fracture Primary Care Provider: [facility] On July 13, she sustained a fall. She had a supracondylar periprosthetic femur fracture. She was sent to [place] for further evaluation and treatment. Dr. Kaba did surgery consisting of an intramedullary poncho and a lateral plate and screws. This was 6 weeks ago. She has been at [facility]. She reports having pain in the knee. She has not had any fevers per her recollection and has not had any wound drainage or wound problems. I think for a suspicion of infection she was started on Keflex on August 19. She continues to be on Lovenox and aspirin as well as vitamin D. Her pain is essentially the same. The knee was hot and swollen.Her total knee was performed by Dr. Tobar and her total hip replacement was performed by Dr. Chin. She presents today for preoperative history and physical. She is scheduled to have a wound revision and hardware revision of her right femur with Dr. Tobar on September 02, 2020. Allergies Allergy/AdvReac Type Severity Reaction Status Date / Time No Known Allergies Allergy Verified 07/13/20 16:22 Home Medications Medication Instructions Recorded Confirmed Type albuterol sulfate [Ventolin HFA] 2 puff INHALATION QID PRN 10/07/18 08/27/20 History amitriptyline 25 mg PO HS 10/07/18 08/27/20 History docusate sodium [Stool Softener] 100 mg PO BID 10/07/18 08/27/20 History ergocalciferol (vitamin D2) 50,000 unit PO MO 10/07/18 08/27/20 History [Vitamin D2] fluticasone propionate [Flonase 2 spray INTRANASAL DAILY PRN 10/07/18 08/27/20 History Allergy Relief] furosemide [Lasix] 20 mg PO QAM 10/07/18 08/27/20 History lisinopril [Zestril] 5 mg PO QAM 10/07/18 08/27/20 History montelukast [Singulair] 10 mg PO HS 10/07/18 08/27/20 History pantoprazole [Protonix] 40 mg PO QAM 10/07/18 08/27/20 History polyethylene glycol 3350 [Miralax] 17 g PO DAILY PRN 10/07/18 08/27/20 History simvastatin [Zocor] 40 mg PO HS 10/07/18 08/27/20 History trazodone 50 mg PO HS 10/07/18 08/27/20 History Oxygen Home #1 ea 10/10/18 08/27/20 Rx Dulera 2 puff INHALATION BID 04/30/19 08/27/20 History metoprolol succinate [Toprol XL] 25 mg PO QAM 04/30/19 08/27/20 History aspirin 81 mg PO QAM 06/14/19 08/27/20 History ipratropium-albuterol 3 ml INHALATION Q4H PRN 06/14/19 08/27/20 History Incruse Ellipta 1 inh INHALATION DAILY 07/31/19 08/27/20 History lorazepam [Ativan] 1 mg PO BID PRN 07/13/20 08/27/20 History acetaminophen 650 mg 650 mg PO Q6 tab 08/27/20 08/27/20 History tablet,extended release ascorbic acid (vitamin C) 500 mg 500 mg PO BID 08/27/20 08/27/20 History tablet citalopram 20 mg tablet 10 mg PO QAM tab 08/27/20 08/27/20 History enoxaparin 40 mg/0.4 mL 40 mg SUBCUT DAILY 08/27/20 08/27/20 History subcutaneous syringe guaifenesin 100 mg/5 mL oral liquid 100 mg PO Q4H PRN ml 08/27/20 08/27/20 History hydromorphone 2 mg tablet See Rx Instructions PO Q4H 08/27/20 08/27/20 History ipratropium 20 mcg-albuterol 100 1 puff INHALATION QID 08/27/20 08/27/20 History mcg/actuation mist for inhalation lidocaine 5 % topical patch 1 patch TOPICAL DAILY 08/27/20 08/27/20 History nystatin 100,000 unit/gram topical 1 applic TOPICAL BID 08/27/20 08/27/20 History powder pregabalin 100 mg capsule 100 mg PO TID 08/27/20 08/27/20 History pregabalin 25 mg capsule 50 mg PO TID cap 08/27/20 08/27/20 History protein supplement See Rx Instructions PO DAILY ml 08/27/20 08/27/20 History Past Med/Surg History Medical History (Updated 09/01/20 @ 11:28 by Nohelia [place] PA-C) Anxiety Chronic indwelling Gonzalez catheter CKD (chronic kidney disease) stage 3, GFR 30-59 ml/min Baseline creatine around 1.2 COPD (chronic obstructive pulmonary disease) on 3 liters of oxygen per records Depression Diastolic CHF due to valvular disease GERD (gastroesophageal reflux disease) History of pulmonary embolism 2013 Hyperlipidemia Hypertension Lumbar radiculopathy Macular degeneration Moderate aortic stenosis Per 07/14/20 ECHO: PATO 1.3-1.6 cm; AV peak velocity 3.52 m/s; AV mean gradient 21.1 mmHg Morbid obesity Poor vision Recurrent UTI Urinary retention with incomplete bladder emptying Surgical History (Updated 09/01/20 @ 10:48 by Nohelia [place] PA-C) History of cholecystectomy History of hysterectomy History of right knee surgery History of surgery Right distal femur periprosthetic open reduction 07/14/20 and right femur I&D History of total left knee replacement History of total right hip arthroplasty History of total right knee replacement Family History Other Cancer Social History Smoking Status: Former smoker Cigarettes Per Day: 20; Second Hand Exposure: No; Hx Alcohol Use: No Hx Substance Use: No Preferred Language: Cambodian Communication Ability: Effective Apparel Merchandiser Required: No Beliefs That Will Affect Care: None marital status: / Current Living Situation: Alone and Fdc current occupational status: retired Feels Safe at Home: Yes Assistive Devices: Mechanical Lift, Walker and Wheelchair Review of Systems Constitutional: + weakness; no fever, no chills, no sweats, no malaise and no weight loss Eyes: no discharge, no eye pain and no itchy eyes Ear, Nose, Mouth, Throat: no ear pain, no tinnitus, no nasal congestion, no dental abscess and no loose teeth Respiratory: + cough and + wheezing; no change in sputum and no dyspnea Cardiovascular: no chest pain, no chest pain at rest and no chest pain with activity Gastrointestinal: no abdominal pain, no heartburn, no nausea, no vomiting, no constipation and no diarrhea/loose stools Genitourinary: no dysuria, no urinary frequency and no urinary urgency Musculoskeletal: + joint pain (right knee pain) and + limited range of motion (right knee); no back pain, no neck pain and no swelling Integumentary: + non-healing lesions, + wounds (right thigh) and + erythema; no rash, no skin swelling and no unusual bruising Neurologic: + gait abnormality; no radiating pain, no seizure-like activity, no dizziness, no syncope, no headache(s) and no confusion Psychiatric: no behavioral changes and no depression Hematologic / Lymphatic: no easy bleeding and no easy bruising Physical Exam Constitutional: WD/WN, vitals as above + morbidly obese Eyes: PERRL, conjunctivae normal, anicteric sclerae ENMT: external ear and nose normal, oropharynx normal Ears: no hearing impairment Neck: trachea midline, no thyromegaly normal visual inspection Respiratory: normal respiratory effort, lungs clear to auscultation able to speak in complete sentences and + audible wheezes; no labored breathing, no grunting and no nasal flaring Auscultation: + wheezes; no diminished lung sounds Cardiovascular: Rate/Rhythm: regular rate and regular rhythm Heart Sounds: + murmur (best heard over medial sternal border 5th IC space) Vessels: normal peripheral pulses; no carotid bruit Extremities: normal capillary refill and + edema (Right leg) Gastrointestinal (Abdomen): normal bowel sounds, soft, nontender, no hepatosplenomegaly Musculoskeletal: he has perhaps 1+ varus valgus laxity in full extension and 1+ varus laxity at 30 degrees. Her posterior drawer is intact. She can do a straight-leg raise and has knee motion from 0-85 degrees. Her calf is soft and nontender. She has 5/5 knee flexion and extension strength, ankle and toe plantarflexion, dorsiflexion, inversion, eversion strength. Her foot is warm and pedal pulses are trace. She has an anterior and a lateral incision. There is no intra-articular effusion. There is some pinkish discoloration lateral, but no erythema and no drainage. There is an eschar on her lateral wound which is about 6-7 cm in length and 1-cm to 1.5-cm wide. This eschar is debrided. There is some granulation tissue underneath. The wound appears to be healed underneath and I am not able to express any purulence or any fluid. There is some mild appropriate induration present. Movement of the knee does not cause any crepitation, and I cannot palpate the screw. Skin: no rashes, warm and dry + wound (right lateral thigh) Neurologic: patellar DTR's 2+ bilat, sensation intact Psychiatric: A+Ox3, euthymic affect Results & Data Results & Data ([facility]) Laboratory Results see [facility] EMR - performed 08/29/20 Diagnostic Findings X-RAYS: AP and lateral view of the femur and knee personal interpretation. There is total hip and a total knee in place. She has a comminuted supracondylar femoral fracture transfixed with a plate and screws as well as an intramedullary poncho. One of the distal screws for the plate has backed out about a centimeter. Alignment is otherwise intact.
--- NOTE | 2020-09-01 14:47 | PAT Medication Instructions ---
Medication Instructions Date of Service September 01, 2020 Home Medications Medication Instructions Recorded Oxygen Home #1 ea 10/10/18 Medications albuterol sulfate [Ventolin HFA] 2 puff INHALATION QID PRN docusate sodium [Stool Softener] 100 mg PO BID ergocalciferol (vitamin D2) [Vitamin D2] 50,000 unit PO MO fluticasone propionate [Flonase Allergy Relief] 2 spray INTRANASAL DAILY PRN furosemide [Lasix] 20 mg PO QAM lisinopril [Zestril] 5 mg PO QAM montelukast [Singulair] 10 mg PO HS pantoprazole [Protonix] 40 mg PO QAM simvastatin [Zocor] 40 mg PO HS trazodone 50 mg PO HS metoprolol succinate [Toprol XL] 25 mg PO QAM aspirin 81 mg PO QAM ipratropium-albuterol 3 ml INHALATION Q4H PRN Incruse Ellipta 1 inh INHALATION DAILY lorazepam [Ativan] 1 mg PO BID PRN acetaminophen 650 mg tablet,extended release 650 mg PO Q6 ascorbic acid (vitamin C) 500 mg tablet 500 mg PO BID citalopram 20 mg tablet 10 mg PO QAM enoxaparin 40 mg/0.4 mL subcutaneous syringe 40 mg SUBCUT QAM guaifenesin 100 mg/5 mL oral liquid 100 mg PO Q4H PRN hydromorphone 2 mg tablet See Rx Instructions PO Q4H PRN lidocaine 5 % topical patch 1 patch TOPICAL BID nystatin 100,000 unit/gram topical powder 1 applic TOPICAL BID pregabalin 100 mg capsule 150 mg PO TID protein supplement See Rx Instructions PO DAILY amitriptyline 10 mg PO HS bisacodyl 10 mg MO DAILY PRN cephalexin 500 mg PO TID multivitamin 1 tab PO QAM polyethylene glycol 3350 [Miralax] 17 g PO DAILY Continue as directed ergocalciferol (vitamin D2) [Vitamin D2] 50,000 unit PO MO (just do not take on day of surgery) lidocaine 5 % topical patch 1 patch TOPICAL BID (as long as not near surgical site- if around or near surgical site- no patch x 24 hours prior to surgery) cephalexin 500 mg PO TID ASK your prescriber and surgeon enoxaparin 40 mg/0.4 mL subcutaneous syringe 40 mg SUBCUT QAM STOP taking 24 hours before surgery nystatin 100,000 unit/gram topical powder 1 applic TOPICAL BID DO NOT take the morning of surgery docusate sodium [Stool Softener] 100 mg PO BID furosemide [Lasix] 20 mg PO QAM lisinopril [Zestril] 5 mg PO QAM ascorbic acid (vitamin C) 500 mg tablet 500 mg PO BID guaifenesin 100 mg/5 mL oral liquid 100 mg PO Q4H bisacodyl 10 mg MO DAILY PRN PRN protein supplement See Rx Instructions PO DAILY multivitamin 1 tab PO QAM polyethylene glycol 3350 [Miralax] 17 g PO DAILY Take morning of surgery With a small sip of water, OTHERWISE NOTHING TO EAT OR DRINK AFTER MIDNIGHT: albuterol sulfate [Ventolin HFA] 2 puff INHALATION QID PRN (use if needed; please bring with you to hospital day of surgery if possible) fluticasone propionate [Flonase Allergy Relief] 2 spray INTRANASAL DAILY PRN (if needed) pantoprazole [Protonix] 40 mg PO QAM metoprolol succinate [Toprol XL] 25 mg PO QAM aspirin 81 mg PO QAM ipratropium-albuterol 3 ml INHALATION Q4H PRN (if needed) Incruse Ellipta 1 inh INHALATION DAILY lorazepam [Ativan] 1 mg PO BID PRN (if needed) acetaminophen 650 mg tablet,extended release 650 mg PO Q6 (okay to take up to 4 hours prior to surgery if needed) citalopram 20 mg tablet 10 mg PO QAM hydromorphone 2 mg tablet See Rx Instructions PO Q4H PRN (okay to take up to 4 hours prior to surgery if needed) pregabalin 100 mg capsule 150 mg PO TID Take evening before surgery albuterol sulfate [Ventolin HFA] 2 puff INHALATION QID PRN (if needed) docusate sodium [Stool Softener] 100 mg PO BID fluticasone propionate [Flonase Allergy Relief] 2 spray INTRANASAL DAILY PRN (if needed) montelukast [Singulair] 10 mg PO HS simvastatin [Zocor] 40 mg PO HS trazodone 50 mg PO HS ipratropium-albuterol 3 ml INHALATION Q4H PRN (if needed) lorazepam [Ativan] 1 mg PO BID PRN (if needed) acetaminophen 650 mg tablet,extended release 650 mg PO Q6 ascorbic acid (vitamin C) 500 mg tablet 500 mg PO BID guaifenesin 100 mg/5 mL oral liquid 100 mg PO Q4H PRN (if needed) hydromorphone 2 mg tablet See Rx Instructions PO Q4H PRN (if needed) pregabalin 100 mg capsule 150 mg PO TID amitriptyline 10 mg PO HS bisacodyl 10 mg MO DAILY PRN (if needed) Other Notes If you have any questions please call us at [phone] or [phone] or [phone] or [phone]
[~2020-09-02 07:56] MED LIST changes: -AMIT-203 PO; +BUPIVACAINE 0.25% 30 ML VIAL ONE; -CITA40TA12 PO; -DOCU-94 PO; -ERGO500037 PO; -FRS/40 PO; +LACTATED RINGER'S 1,000 ML IV SCH; -LORA-741 PO; +LR 15ML/HR IV SCH; -LSN/10125 PO; -MONT1TAB3 PO; -PANT40TA PO; -POLY335025 PO; -PREG100C PO; -SENN-61 PO; -TRAZ50TA35 PO; -VNTHFA/IN INH; -ZCR40 PO
[2020-09-02] MEDS ORDERED: MIDAZOLAM HCL 1 MG/ML 2ML VIAL ONE (08:43)
[2020-09-02] MEDS ORDERED: LIDOCAINE HCL 2% 2 ML VIAL/AMP(20MG/ML) INFIL ONE (08:43)
[2020-09-02] MEDS ORDERED: DEXAMETHASONE SOD INJ 4 MG/ML VIAL ONE (08:43)
[2020-09-02] MEDS ORDERED: PROPOFOL IV EMULSION 10 MG/ML 20 ML VIAL IV ONE (08:43)
[2020-09-02] MEDS ORDERED: GLYCOPYRROLATE 0.2 MG/ML VIAL ONE (08:43)
[2020-09-02] MEDS ORDERED: NEOSTIGMINE METHYLSULFATE 5 MG/5 ML SYR ONE (08:43)
[2020-09-02] MEDS ORDERED: fentaNYL citrate 100 MCG/2 ML VIAL ONE (08:43)
[2020-09-02] MEDS ORDERED: ONDANSETRON INJ 2 MG/ML 2 ML VIAL ONE (08:43)
[2020-09-02] MEDS ORDERED: ceFAZolin 3000MG/72.5 ML BAG IV ONE (09:24)
[2020-09-02] MEDS ORDERED: ONDANSETRON INJ 2 MG/ML 2 ML VIAL IV PRN ×2 (09:31→15:02)
[2020-09-02] MEDS ORDERED: ATROPINE SULFATE 0.1 MG/ML 10ML SYR IV PRN (09:31)
[2020-09-02] MEDS ORDERED: ePHEDrine sulfate 50 MG/ML AMP IV PRN (09:31)
[2020-09-02] MEDS ORDERED: fentaNYL citrate 100 MCG/2 ML VIAL IV PRN (09:31)
[2020-09-02] MEDS ORDERED: VANCOMYCIN CONSULT ACTIVE PRN ×2 (09:47→15:02)
[2020-09-02] MEDS ORDERED: ALBUT/IPRATROP 3MG/0.5MG NEB 3 ML VIAL INH PRN ×2 (09:48→15:02)
--- NOTE | 2020-09-02 09:53 | History & Physical Bridge Note ---
Date of Service September 02, 2020 History & Physical Bridge Note I have examined the patient, reviewed the History & Physical and in the interval since the performance of the History & Physical I have noted the following changes of clinical significance: no changes noted
[2020-09-02] MEDS ORDERED: VANCOMYCIN HCL 1,750 MG in SODIUM CHLORIDE 0.9% 500 ML IV ONE (10:00)
[2020-09-02] MEDS ORDERED: BUPIVACAINE 0.5 % 5 MG/1 ML MPF 30ML VIAL ONE (10:22)
[2020-09-02] MEDS ORDERED: LIDOCAINE/EPINEPHRINE 1% 20 ML VIAL ONE (10:22)
[2020-09-02] MEDS ORDERED: BACITRACIN INJ 50,000 UNIT VIAL ONE ×2 (10:22→10:54)
[2020-09-02] MEDS ORDERED: GENTAMICIN SULFATE 40 MG/ML 2 ML VIAL ONE (10:49)
[2020-09-02] MEDS ORDERED: VANCOMYCIN HCL 1000MG/20ML VIAL ONE (10:50)
[2020-09-02] MEDS ORDERED: ePHEDrine sulfate 50 MG/ML SYR ONE (11:44)
[2020-09-02] MEDS ORDERED: PHENYLEPHRINE 100MCG/ML 5ML SYR ONE (11:44)
[2020-09-02] MEDS ORDERED: ePHEDrine sulfate 50 MG/ML AMP ONE (11:44)
[2020-09-02] MEDS ORDERED: SUCCINYLCHOLINE 100MG/5ML SYR IV ONE (11:45)
[2020-09-02] MEDS ORDERED: LARYING-O-JET KIT (LTA) ONE (11:45)
[2020-09-02] MEDS ORDERED: ALBUTEROL HFA INHALER 8.5 GM ONE (12:01)
--- NOTE | 2020-09-02 12:21 | Fluoroscopy Report ---
FL femur RT 2V HISTORY: 70 years-old Female RT REMOVE/REVISE HARDWARE follow-up study in a patient with periprosthe tic fracture of the distal femur COMPARISON: Right knee radiographs 08/25/2020 TECHNIQUE: 3 spot fluoroscopic images of the right knee were obtained utilizing 32.0 seconds fluorosc opy time FINDINGS: Right knee total joint arthroplasty with lateral plate and screw fusion of the distal femur redemonst rated. No unexpected opaque foreign body identified. IMPRESSION: Fluoroscopic assistance as above. ACT 112: Negative or not required by law. The above report was generated using voice recognition software. It may contain grammatical, syntax o r spelling errors. Electronically signed by: Parker Coleman M.D. 09/02/2020 12:20 PM
--- NOTE | 2020-09-02 12:35 | Operative Report ---
Post Operative Report Pre & Post Diagnosis Operation Date: 09/02/20 09:50 Pre-Op Diagnosis: Delayed Wound Healing/Hardware Failure Right Femur Post-Op Diagnosis: Delayed Wound Healing/Hardware Failure Right Femur I identified the patient and participated in the time-out.: Yes Procedure Operation Date: 09/02/20 09:50 Actual Procedures p Right Femur Wound Revision/Hardware Revision(Right) - Andre Tobar MD Surgeon Andre Tobar MD Food Preparer Willow Adkins. No resident or fellow available. Zeferino Fernanda. Estimated Blood Loss 15 Findings Consistent with Post-Op Diagnosis Specimens None Anesthesia Type General Regional Complications none Disposition Accompanied Patient To Recovery: No Disposition: Recovery Room Indications Patient 70. She had a right total hip and a right total knee. About 7 weeks ago she fell and sustained a distal femoral periprosthetic fracture. She was transferred to [place] and had this treated with open reduction internal fixation using a retrograde poncho as well as a lateral locked femoral plate. I performed her original total knee replacement. She is followed up with me here in here in [place] regarding the injury. She has had some delayed healing of the wound and is being seen in the wound clinic. This is superficial without drainage or evidence of infection. She has not had any effusion in her knee. One of her distal interlocking screws has backed out. I consulted with Dr. Baez her operative surgeon and he had recommended hardware revision.The patient had [facility] [place]. Her preoperative DNA nasal MRSA swab was positive. She received a Betadine nasal swab preoperatively and was also given vancomycin in addition to her Ancef. Description of Procedure Informed consent obtained. Patient identified. She identified the operative site as the right knee. I marked with my initials. A preop surgical timeout was performed and a preop dose of antibiotics was given.She was positioned supine on the OR table. A tourniquet on the right thigh. A bump under the right hip. The exam under anesthesia revealed gravity assisted range of motion 0-90. She had 1+ LCL laxity in mid position intact posterior drawer and no MCL laxity. There was no knee effusion present. She had some generalized swelling of the leg and a little bit of pinkish discoloration around the lateral incision. She had multiple incisions about the knee but the main ones were an anterior incision for a total knee and the lateral one for the plate. The lateral wound for the plate was superficially open with some yellowish exudate at the base. This was over a length of 4 cm and was a width from anywhere 0.5 to 1 cm.The leg was prescrubbed with Betadine and then prepped and draped with Betadine in usual sterile fashion. The limb was exsanguinated with the Esmarch and the tourniquet was inflated to 275 mmHg. The tourniquet was let down shortly thereafter once the plate had been exposed. Meticulous hemostasis was performed with electrocautery and pressure.The unhealed area was ellipsed out full-thickness down to the subcutaneous fat. This was only superficial and it did not go any deeper than 2 to 3 mm from this skin. There is no purulence. There was some edema around the whole knee area. I then localize the screw distally fluoroscopically. I then used a hemostat to find the prior surgical plane and opened this up distally. The screw was readily identified and the remaining hematoma removed. Sharp excisional debridement of the unhealed wound was performed. A rongeur was utilized to debride the remaining portion of the wound for any residual hematoma or unhealthy appearing fat. I initially remove the screw and utilized the depth gauge to going the same path. This screw coursed slightly proximal. It measured 80 mm in length. I thought that it could actually be drilled further to make it bicortical. The drill guide was applied to the locking plate. This was the most distal posterior screw. I identified that this was posterior but also slightly proximal to the box of the TKA. The screw that had been inserted previously was had a more cranially oriented angle. It did not appear that this was a variable angle screw although the plate was of variable angle plate. The angle may have accounted for the backing out of the screw. After applying the guide I drilled the hole but could not get any deeper than about 36 to 38 mm likely because it was hitting the box secondary to the angle. We did not have the variable angle screws available. I went ahead and inserted a 34mm 5.0 mm diameter solid noncannulated nonvariable angled locking screw with good purchase. The more anterior distal screw was readily visualized and it was tightened fraction of return as well. Shearer Screen Measurer And Trimmer images were obtained. The wound was thoroughly irrigated. The wound was dry. I then took some stimulant beads with vancomycin and gentamicin per office manager executive assistant's recommendations and put several of these adjacent to the plate deep. I then closed the IT band in the distal portion of the vastus lateralis over top of this using #1 Vicryl. I then took some beads and placed them in the deep subcutaneous layer and closed over this with 0 Vicryl and 2-0 Vicryl. The skin was then closed with 2-0 nylon. Local anesthetic was injected into the skin and subcutaneous tissues. The leg was cleaned with wet and dry sponges. A bulky soft sterile dressing was applied. Xeroform 4 x 4's ABD full-length Price wrap. Patient was awakened from anesthesia without difficulty and taken to the cart room stable condition. There were no specimens or complications. Counts were correct and blood loss is estimated to be 15 cc. At the conclusion the operation I contacted the patient's son and informed of my findings. The plan is to admit her to the hospital postoperatively. She may weight-bear as tolerated and have range of motion as tolerated. Medicine consult. Routine course of postop intravenous antibiotics.There is a J&J PFC rotating platform knee in place. A retrograde Synthes femoral nail and a variable angle Synthes distal femoral locking plate. I attest to the content of the Intraoperative Record and any orders documented therein. Any exceptions are noted below.
--- NOTE | 2020-09-02 12:49 | Operative Report ---
Post Operative Report Pre & Post Diagnosis Operation Date: 09/02/20 09:50 Pre-Op Diagnosis: Delayed Wound Healing/Hardware Failure Right Femur Post-Op Diagnosis: Delayed Wound Healing/Hardware Failure Right Femur I identified the patient and participated in the time-out.: Yes Procedure Operation Date: 09/02/20 09:50 Actual Procedures p Right Femur Wound Revision/Hardware Revision(Right) - Andre Tobar MD Surgeon Andre Tobar M.D. Graphic Editor Willow Adkins PA-C; Zeferino Katz MS; no fellow available. Estimated Blood Loss 15 Findings Consistent with Post-Op Diagnosis Specimens None Anesthesia Type General Complications none Description of Procedure Patient was taken to the operating room, placed under general anesthesia, time out performed, prepped and draped in routine sterile fashion. I was present during the entire case, assisted with positioning, exchange of screw, irrigation, debridement, x-rays imaging, closure and dressings. Please see Dr. Tobar's operative report for further detail. Patient was awakened and taken to the recovery room in stable condition. I attest to the content of the Intraoperative Record and any orders documented therein. Any exceptions are noted below.
[2020-09-02] MEDS ORDERED: LORazepam 0.5 MG TAB ONE (14:09)
[2020-09-02] MEDS ORDERED: LORazepam 1 MG TAB PO STA (14:10)
--- NOTE | 2020-09-02 14:26 | Anesthesiology Progress Note ---
Date of Service September 02, 2020 Anesthesia Post Procedure Vital Signs Vital Signs: Temp Pulse Pulse Resp BP BP Pulse Ox 09/02/20 14:05 66 15 145/53 H 98 09/02/20 13:50 73 21 138/53 L 96 09/02/20 13:35 36.7 C 73 18 138/53 L 97 09/02/20 13:25 36.7 C 78 19 139/81 100 09/02/20 13:15 75 15 134/57 L 99 09/02/20 13:05 73 19 144/53 H 100 09/02/20 12:55 79 17 137/55 L 100 09/02/20 12:48 36.6 C 82 15 148/80 H 97 09/02/20 10:01 66 18 94 09/02/20 09:00 36.8 C 72 18 119/56 L 99 Pain Intensity Right Leg: Pain Intensity: 3 Right Knee: Pain Intensity: 3 Transfer of Care Handoff Completed per policy Notes Mental Status: alert / awake / arousable and participated in evaluation Patient Amnestic to Procedure: Yes Nausea / Vomiting: adequately controlled Pain: adequately controlled Airway Patency, RR, SpO2: stable & adequate BP & HR: stable & adequate Hydration State: stable & adequate Anesthetic Complications: no major complications apparent and Pt Satisfied with anesthetic care
[2020-09-02] MEDS ORDERED: bisacodyL 10 MG SUPP PR PRN (15:02)
[2020-09-02] MEDS ORDERED: VANCOMYCIN HCL 1,750 MG in SODIUM CHLORIDE 0.9% 250 ML IV SCH (15:02)
[2020-09-02] MEDS ORDERED: traMADol HCL 50 MG TABLET PO PRN (15:02)
[2020-09-02] MEDS ORDERED: NALOXONE HCL 0.4 MG/1 ML VIAL/CARP IV PRN (15:02)
[2020-09-02] MEDS ORDERED: FLUTICASONE PROPIONATE NA SPR 16 GM BTL NAE PRN (15:02)
[2020-09-02] MEDS ORDERED: HYDROmorphone INJ 1 MG/ML SYRINGE IV PRN (15:02)
[2020-09-02] MEDS ORDERED: SODIUM CHLORIDE 0.9% 1000ML 1,000 ML IV SCH (15:02)
[2020-09-02] MEDS ORDERED: HYDROmorphone INJ 0.5 MG/0.5 ML SYR IV PRN (15:02)
[2020-09-02] MEDS ORDERED: METOCLOPRAMIDE HCL INJ 5 MG/ML 2 ML VIAL IV PRN (15:02)
[2020-09-02] MEDS ORDERED: diphenhydrAMINE 50 MG/ML VIAL IV PRN (15:02)
[2020-09-02] MEDS ORDERED: ALBUTEROL HFA 8 GM INHALER INH PRN (15:02)
[2020-09-02] MEDS ORDERED: guaiFENesin SUGAR FREE 100 MG/5 ML UDC PO PRN (15:02)
[2020-09-02] MEDS: oxyCODONE HCL IR 5 MG TAB (IMMEDIATE RELEASE) PO PRN ×2 (16:46→21:15)
[2020-09-02] MEDS: ACETAMINOPHEN 500 MG TAB PO SCH ×2 (16:47→20:47)
[2020-09-02] MEDS: PREGABALIN 150 MG CAP PO SCH ×2 (16:49→20:45)
--- NOTE | 2020-09-02 18:35 | Progress Notes ---
DATE: 09/02/2020 Jaky is resting comfortably in bed. Her pain is well controlled. She is afebrile and her vital signs are stable. Dressing is clean and dry. Dorsalis pedis is 1+. Her sensation is limited because of chronic neuropathy. She has 5/5 ankle plantarflexion, dorsiflexion and eversion strength. I discussed with her the findings related to the surgery and the proposed plan. We will restart her Lovenox this evening. She will get a routine course of postop IV antibiotics. She can be weightbearing as tolerated.
[2020-09-02] MEDS: NYSTATIN POWDER 15GM BTL EXT SCH (20:45)
[2020-09-02] MEDS: DOCUSATE SODIUM 100 MG CAP PO SCH (20:45)
[2020-09-02] MEDS: ASCORBIC ACID 500 MG TAB PO SCH (20:46)
[2020-09-02] MEDS ORDERED: AMITRIPTYLINE HCL 10 MG TAB PO SCH (21:00)
[2020-09-02] MEDS ORDERED: traZODone HCL 50 MG TAB PO SCH (21:00)
[2020-09-02] MEDS ORDERED: SENNA 8.6 MG TAB PO SCH (21:00)
[2020-09-02] MEDS ORDERED: SIMVASTATIN 40 MG TAB PO SCH (21:00)
[2020-09-02] MEDS ORDERED: MONTELUKAST SODIUM 10 MG TABLET PO SCH (21:00)
[2020-09-02] MEDS ORDERED: VANCOMYCIN HCL 1,750 MG in SODIUM CHLORIDE 0.9% 500 ML IV SCH (22:00)
[2020-09-02] MEDS: LORazepam 1 MG TAB PO PRN (23:18)
[2020-09-03] MEDS: ACETAMINOPHEN 500 MG TAB PO SCH (05:47)
[2020-09-03] MEDS: oxyCODONE HCL IR 5 MG TAB (IMMEDIATE RELEASE) PO PRN (06:01)
[2020-09-03 07:15] LABS: Hematocrit (blood only) 27.3 % (37-47); Hemoglobin 8.6 g/dL (12.0-16.0); Mean Corpuscular Hemoglobin 31.2 pg (25-34); Mean Corpuscular Hgb Conc 31.5 g/dL (32-36); Mean Corpuscular Volume 98.9 fL (80-100); Mean Platelet Volume 9.8 fL (7.4-10.4); Platelet Count 237 K/uL (130-400); RDW Coefficient of Variation 14.7 % (11.5-14.5); RDW Standard Deviation 52.7 fL (36.4-46.3); Red Blood Count 2.76 M/uL (4.2-5.4); White Blood Count 5.27 K/uL (4.8-10.8)
[2020-09-03 07:48] LABS: BUN Creatinine Ratio 19.6 (10-20); Calcium 8.5 mg/dl (8.5-10.1); Creatinine Clr Calc Pharmacy 75.7 ml/min; Est GFR (African American) 76.1; Est GFR (Non-African American) 65.6
[2020-09-03] MEDS ORDERED: UMECLIDINIUM BROMIDE 62.5MCG/BLISTER 7 PUFFS/INHALER INH SCH (09:00)
[2020-09-03] MEDS ORDERED: FUROSEMIDE 20 MG TAB PO SCH (09:00)
[2020-09-03] MEDS ORDERED: CITALOPRAM 20 MG TAB PO SCH (09:00)
[2020-09-03] MEDS ORDERED: METOPROLOL SUCC 25MG EXT REL TAB PO SCH (09:00)
[2020-09-03] MEDS ORDERED: lisinopril 5 MG TAB PO SCH (09:00)
[2020-09-03] MEDS ORDERED: ASPIRIN 81 MG ECTAB PO SCH (09:00)
[2020-09-03] MEDS ORDERED: PANTOprazole 40 MG TAB PO SCH (09:00)
[2020-09-03] MEDS ORDERED: POLYETHYLENE (MIRALAX) 17 GM PACK PO SCH (09:00)
[2020-09-03] MEDS: LORazepam 1 MG TAB PO PRN (09:03)
[2020-09-03] MEDS: NYSTATIN POWDER 15GM BTL EXT SCH (09:04)
[2020-09-03] MEDS: DOCUSATE SODIUM 100 MG CAP PO SCH (09:07)
[2020-09-03] MEDS: ASCORBIC ACID 500 MG TAB PO SCH (09:07)
[2020-09-03] MEDS: PREGABALIN 150 MG CAP PO SCH (09:13)
--- NOTE | 2020-09-03 09:57 | Orthopedic Progress Note ---
Date of Service September 03, 2020 Assessment & Plan (1) Non-healing surgical wound: POD 1 - wound revision and revision ORIF right distal femur fracture Encouraged patient out of bed with assistance. Continue use of walker She may be out of bed, weight bear as tolerated right lower extremity Allowed for full ROM of right knee and right ankle Ice to right thigh as needed for pain Will leave dressings in place today. will write instructions for those to be changed at [facility]. Contact isolation - MRSA colonization. Discussed with patient, will plan to decolonize with mupirocin at [facility]. She understands Follow up in our office as scheduled on 09/08/20. Call [phone] with q uestions or concerns. She understands and agrees with the plan. Dr. Tobar present for today's evaluation. Admission and Anticipated Discharge Date Admission Date: September 02, 2020 Subjective Patient doing well. Minimal pain in right leg at rest. Worse pain is 5-6/10. Denies difficulty eating. She has been out of bed with assistance. Physical Exam Physical Exam: Exam of right leg: Decreased sensation normal for her due to neuropathy. Dressings on right leg, clean, dry and intact. full strength and ROM at right ankle. No calf tenderness. Distal pulses right foot 1+ Results & Data ([facility]) Vital Signs (Past 12 Hours) Vital Signs Temp Pulse Resp BP Pulse Ox 09/03/20 08:15 36.4 C L 69 15 117/64 98 09/03/20 03:21 36.7 C 74 20 127/61 94 09/02/20 23:36 36.7 C 68 20 145/65 H 98 Laboratory Results 09/03/20 09/03/20 09/02/20 Range/Units 06:31 06:31 08:50 WBC 5.27 (4.8-10.8) K/uL RBC 2.76 L (4.2-5.4) M/uL Hgb 8.6 L (12.0-16.0) g/dL Hct 27.3 L (37-47) % MCV 98.9 (80-100) fL MCH 31.2 (25-34) pg MCHC 31.5 L (32-36) g/dL RDW Std Deviation 52.7 H (36.4-46.3) fL RDW Coeff of Leo 14.7 H (11.5-14.5) % Plt Count 237 (130-400) K/uL MPV 9.8 (7.4-10.4) fL Sodium 138 (136-145) mmol/L Potassium 5.0 (3.5-5.1) mmol/L Chloride 103 (98-107) mmol/L Carbon Dioxide 31 (21-32) mmol/L Anion Gap 4.0 (3-11) BUN 17 (7-18) mg/dl Creatinine 0.88 (0.6-1.2) mg/dl Est Cr Clr Drug Dosing 75.7 ml/min Est GFR ( Amer) 76.1 Est GFR (Non-Af Amer) 65.6 BUN/Creatinine Ratio 19.6 (10-20) Glucose 117 H (70-99) mg/dl Calcium 8.5 (8.5-10.1) mg/dl Blood Type AB Negative Antibody Screen NEGATIVE
--- NOTE | 2020-09-03 11:13 | Discharge Summary ---
Date of Service September 03, 2020 Admission HPI Per Admitting Provider On July 13, she sustained a fall. She had a supracondylar periprosthetic femur fracture. She was sent to [place] for further evaluation and treatment. Dr. Kaba did surgery consisting of an intramedullary poncho and a lateral plate and screws. This was 6 weeks ago. She has been at [facility]. She reports having pain in the knee. She has not had any fevers per her recollection and has not had any wound drainage or wound problems. I think for a suspicion of infection she was started on Keflex on August 19. She continues to be on Lovenox and aspirin as well as vitamin D. Her pain is e ssentially the same. The knee was hot and swollen.Her total knee was performed by Dr. Tobar and her total hip replacement was performed by Dr. Chin. She presents today for preoperative history and physical. She is scheduled to have a wound revision and hardware revision of her right femur with Dr. Tobra on September 02, 2020. Discharge Data Consultations 09/02/20 15:02 Consult Hospitalist Routine Procedures Performed Operation Date: 09/02/20 09:50 Actual Procedures p Right Femur Wound Revision/Hardware Revision(Right) - Andre Tobar MD Hospital Course (1) Non-healing surgical wound: Patient was admitted under observation to [facility] after undergoing an elective hardware exchange, revision ORIF of her right distal femur with scar revision. She is status post open reduction internal excision of her right distal femur approximately 6 weeks ago. This was done at [facility]. She is now currently at [facility] in [place] for postoperative rehab. She was having issues with her wound on her right lower extremity as well as some increased pain. She had x-rays which found to have a screw loose in the hardware. Surgical intervention was recommended. Surgery was performed on September 02, 2020 under general anesthesia. She tolerated the procedure well. Her surgery was performed by Dr. Tobar. Her procedure was a wound revision, revision hardware ORIF right distal femur. Intraoperative x-rays were obtained and showed continued reduction of the fracture, and reimplantation of a screw. Postoperatively she was allowed out of bed, weight- bear as tolerated right lower extremity and allowed full range of motion of her right hip, knee and ankle. She was instructed to use a walker to assist with ambulation. Physical therapy and Occupational Therapy consult was obtained. He was also encouraged to do these exercises on her own in bed. Her Lovenox was resumed for DVT prophylaxis. We also gave her AV impulse boots as well as JACI stockings. Dressings remained intact and clean and dry during her inpatient stay. Instructions were provided for [facility] to change these in a few days. She tolerated a regular diet during her inpatient stay. She was medically stable. A hospitalist consult was placed for postoperative medical management. Her vital signs remained stable. Postoperative lab work was also stable. She was continued on continuous oxygen as well as an indwelling catheter. She will be discharged with both. She was given IV Ancef as well as IV vancomycin prior to surgery due to her positive MRSA nasal swab preoperatively. The IV vancomycin was continued and completed less than 24 hours after surgery. She was placed on contact isolation due to the positive MRSA nasal swab. Case management, social economist was consulted for disposition needs. The plan will be for her to be [facility]. She was discharged in stable condition on September 03, 2020 to [facility]. Discharge instructions were provided. Discharge instructions were also discussed with the patient. Due to her positive MRSA nasal swab she was discharged home on mupirocin ointment to be applied intranasally twice daily for 10 days. We then recommended a repeat MRSA nasal swab 2 weeks after the start of the mupirocin therapy. She understands and agrees with the plan. All questions were answered. Her regular home medications were continued including the Lovenox for DVT prophylaxis as well as her pain medication. We will follow up as instructed and scheduled in our office. Please see discharge instructions for appointment dates and times. Discharge Instructions Dressings to right thigh wound change daily and PRN. Beginning on Tuesday - september shower, let soap and water run over incision, pat dry and redress. Keep incision covered with light dressing. Allowed for full range of motion right hip, knee and ankle You may be out of bed, weight bear as tolerated with assistance of a walker and a person. Ice to right thigh as needed for pain/swelling. Elevate right lower extremity above your heart to relieve pain/swelling. jaci stockings bilateral lower extremities - on during the day; off at night PT/OT daily/as ordered Pain medication as prescribed/PRN Mupirocin twice daily in both nostrils x 10 days. Once Mupirocin completed, please retest MRSA nasal swab. Follow up as scheduled, call [phone] with any questions or concerns or need to reschedule appointments.
[2020-09-08] MEDS ORDERED: ERGOCALCIFEROL 50,000 UNITS 1250 MCG CAP PO SCH (09:00)
== END 2020-09-03 12:50 ==
LOC: 3E 07:56 → ASU 07:56

== ENCOUNTER 2020-09-13 13:59 | Inpatient (IN) ==
--- NOTE | 2020-09-13 14:25 | Emergency Department Note ---
Impression & Plan Non-ST elevation [place] (NSTEMI), Dizzy, AMS (altered mental status), Acute UTI ED Provider Note NAME: JULIA EDWARDS AGE: 70 SEX: F : 1950 ARRIVES VIA: Ambulance INFORMANT: Patient, EMS ED PROVIDER(S): Maximiliano Torres DO CHIEF COMPLAINT: Dizziness HPI: Patient is a 70-year-old female who presents to the ER for dizziness. This has been going on since last night. She is at a rehab facility secondary to her right knee surgery. They have stopped her chronic Dilaudid and have switched her to Ativan. They note some intermittent twitching of the upper extremities. She denies any headache or change in vision. She denies any chest pain or shortness of breath. No nausea, vomiting, or diarrhea. No dysuria, urgency, or frequency although she does have a Gonzalez in place. She admits to diffuse weakness throughout the entire body. ROS: See above HPI for pertinent positives & negatives. A total of 10 systems reviewed and were otherwise negative. PAST MEDICAL HISTORY:See Below PAST SURGICAL HISTORY:See Below FAMILY HISTORY:See Below SOCIAL HISTORY:See Below HOME MEDICATIONS:See Below ALLERGIES:See Below VITALS:See Below PHYSICAL EXAMINATION: GENERAL: Sitting up in bed, alert, chronically ill-appearing, disheveled, on 2 L nasal cannula EYE EXAM: normal conjunctiva. PERRL and EOM's grossly intact. OROPHARYNX: no exudate, no erythema, lips, buccal mucosa, and tongue normal and mucous membranes are moist NECK: supple, no nuchal rigidity, no adenopathy, non-tender LUNGS: Clear to auscultation. Normal chest wall mechanics HEART: no murmurs, S1 normal and S2 normal : Gonzalez in place ABDOMEN: abdomen soft, non-tender, normo-active bowel sounds, no masses, no rebound or guarding. UPPER EXTREMITIES: upper extremities are grossly normal. LOWER EXTREMITIES: No pitting edema. NEURO EXAM: Normal sensorium, cranial nerves II-XII grossly intact, normal speech, no gross weakness of arms, no gross weakness of legs. Redimy-du-ullw intact. Intermittent twitch of an upper extremity MEDICAL DECISION MAKING: Patient is a 70-year-old female who presents the ER for confusion and dizziness. She denies any chest pain or shortness of breath. IV was established blood was obtained. Labs show no significant leukocytosis and mild anemia at 9. BMP with mild hyponatremia. T bili was normal. LFTs were unremarkable. Troponin was elevated 0.086. She generally has a detectable troponin but not always positive. Lipase was normal. UA does suggest UTI although drawn off of a catheter. Covid was negative. Patient was given IV antibiotics. She was updated bedside. CT head was unremarkable. Patient was discussed the hospitalist for further evaluation. EKG was nondiagnostic. Triage Nursing notes reviewed. Limited review of prior medical records performed Vital Signs: reviewed and remarkable for no significant abnormalities Differential diagnosis: Differential diagnoses includes but is not limited to toxic, metabolic, infectious, traumatic, cardiac, neurologic, hematologic, psychiatric and inflammatory etiologies. ER treatment provided: See below Diagnostics interpreted by me: ECG: Sinus rhythm rate of 70 Normal axis No PVCs QTC 4 3 Cardiac Monitoring: An order was placed for continuous cardiac monitoring. The monitor shows a rate of 74 with sinus rhythm. Laboratory studies: As stated above and show below. Imaging studies: CT head shows no acute pathology Consultation(s): none Procedures: none Critical Care: None Past Med/Surg History Medical History Anxiety Chronic indwelling Gonzalez catheter CKD (chronic kidney disease) stage 3, GFR 30-59 ml/min Baseline creatine around 1.2 COPD (chronic obstructive pulmonary disease) on 3 liters of oxygen per records Depression Diastolic CHF due to valvular disease GERD (gastroesophageal reflux disease) History of pulmonary embolism 2013 Hyperlipidemia Hypertension Lumbar radiculopathy Macular degeneration Moderate aortic stenosis Per 07/14/20 ECHO: PATO 1.3-1.6 cm; AV peak velocity 3.52 m/s; AV mean gradient 21.1 mmHg Morbid obesity Poor vision Recurrent UTI Urinary retention with incomplete bladder emptying Surgical History History of cholecystectomy History of hysterectomy History of right knee surgery History of surgery Right distal femur periprosthetic open reduction 07/14/20 and right femur I&D History of total left knee replacement History of total right hip arthroplasty History of total right knee replacement Family History Other Cancer Social History Smoking Status: Former smoker Second Hand Exposure: No; Hx Alcohol Use: No Hx Substance Use: No Preferred Language: Welsh Communication Ability: Effective Knot Tying Operator Required: No Beliefs That Will Affect Care: None marital status: / Current Living Situation: Personal Care Facility Current Living Situation Comment: [facility] resident current occupational status: retired Feels Safe at Home: Yes Assistive Devices: Oxygen - at Night and Walker Allergies Allergies Allergy/AdvReac Type Severity Reaction Status Date / Time No Known Allergies Allergy Verified 09/13/20 15:30 Home Meds Home Medications Medication Instructions Recorded Confirmed docusate sodium [Stool Softener] 100 mg PO BID 10/07/18 09/13/20 ergocalciferol (vitamin D2) 50,000 unit PO WK 10/07/18 09/13/20 [Vitamin D2] fluticasone propionate [Flonase 2 spray INTRANASAL DAILY PRN 10/07/18 09/13/20 Allergy Relief] furosemide [Lasix] 20 mg PO QAM 10/07/18 09/13/20 lisinopril [Zestril] 5 mg PO QAM 10/07/18 09/13/20 montelukast [Singulair] 10 mg PO HS 10/07/18 09/13/20 pantoprazole [Protonix] 40 mg PO QAM 10/07/18 09/13/20 simvastatin [Zocor] 40 mg PO HS 10/07/18 09/13/20 trazodone 50 mg PO HS 10/07/18 09/13/20 metoprolol succinate [Toprol XL] 25 mg PO QAM 04/30/19 09/13/20 aspirin 81 mg PO QAM 06/14/19 09/13/20 ipratropium-albuterol 3 ml INHALATION Q4H PRN 06/14/19 09/13/20 lorazepam [Ativan] 1 mg PO BID PRN 07/13/20 09/13/20 ascorbic acid (vitamin C) 500 mg 500 mg PO BID 08/27/20 09/13/20 tablet citalopram 20 mg tablet 10 mg PO QAM tab 08/27/20 09/13/20 enoxaparin 40 mg/0.4 mL 40 mg SUBCUT QAM 08/27/20 09/13/20 subcutaneous syringe guaifenesin 100 mg/5 mL oral liquid 100 mg PO Q4H PRN ml 08/27/20 09/13/20 lidocaine 5 % topical patch 1 patch TOPICAL BID 08/27/20 09/13/20 nystatin 100,000 unit/gram topical 1 applic TOPICAL BID 08/27/20 09/13/20 powder pregabalin 100 mg capsule 150 mg PO TID 08/27/20 09/13/20 protein supplement 30 ea PO DAILY ml 08/27/20 09/13/20 amitriptyline 10 mg PO HS 09/01/20 09/13/20 multivitamin 1 tab PO QAM 09/01/20 09/13/20 polyethylene glycol 3350 [Miralax] 17 g PO QAM 09/01/20 09/13/20 diclofenac sodium [Voltaren] 2 g TOPICAL QID 09/13/20 09/13/20 amhydxqcyra-dhymcxsqu-gepbnntt 1 inh INHALATION QAM 09/13/20 09/13/20 [Trelegy Ellipta] ondansetron HCl 4 mg PO Q6H PRN 09/13/20 09/13/20 oxycodone 10 mg PO Q6H PRN 09/13/20 09/13/20 Previous Rx's Medication Instructions Recorded Oxygen Home #1 ea 10/10/18 acetaminophen 1,000 mg PO Q8 PRN #30 tab 09/03/20 Results & Data (ED) Vital Signs Vital Signs - 24 hr 09/13/20 14:06 09/13/20 14:10 09/13/20 14:30 Temperature 37.3 C Temperature Source Oral Pulse Rate 72 75 69 Pulse Rate from SpO2 Sensor 71 69 Pulse Rhythm Regular Pulse Strength Normal Respiratory Rate 14 16 22 Respiratory Effort / Characteristics Non-Labored Respiratory Depth Normal Respiratory Pattern Regular Blood Pressure 133/47 L 133/47 L 124/43 L Blood Pressure Mean 75 75 70 Blood Pressure Position Lying Pulse Oximetry 95 91 95 Oxygen Delivery Method Room Air Nasal Cannula Oxygen Flow Rate 2 Sepsis Recent Fever Within 48 Hours No Sepsis New/Unexplained Change in Mental Status N/A Sepsis Action Taken by Nursing No Action Required 09/13/20 14:50 09/13/20 15:00 09/13/20 15:14 Temperature Temperature Source Pulse Rate 71 70 67 Pulse Rate from SpO2 Sensor 71 69 68 Pulse Rhythm Pulse Strength Respiratory Rate 16 10 L Respiratory Effort / Characteristics Respiratory Depth Respiratory Pattern Blood Pressure 115/56 L Blood Pressure Mean 75 Blood Pressure Position Pulse Oximetry 95 95 92 Oxygen Delivery Method Nasal Cannula Oxygen Flow Rate 2 Sepsis Recent Fever Within 48 Hours Sepsis New/Unexplained Change in Mental Status Sepsis Action Taken by Nursing 09/13/20 15:20 09/13/20 15:30 09/13/20 15:31 Temperature Temperature Source Pulse Rate 66 65 65 Pulse Rate from SpO2 Sensor 65 65 65 Pulse Rhythm Pulse Strength Respiratory Rate 10 L 11 L 13 Respiratory Effort / Characteristics Respiratory Depth Respiratory Pattern Blood Pressure 115/45 L Blood Pressure Mean 68 Blood Pressure Position Pulse Oximetry 93 93 94 Oxygen Delivery Method Oxygen Flow Rate Sepsis Recent Fever Within 48 Hours Sepsis New/Unexplained Change in Mental Status Sepsis Action Taken by Nursing 09/13/20 15:40 09/13/20 15:50 09/13/20 16:00 Temperature Temperature Source Pulse Rate 66 67 70 Pulse Rate from SpO2 Sensor 66 66 72 Pulse Rhythm Pulse Strength Respiratory Rate 15 15 27 H Respiratory Effort / Characteristics Respiratory Depth Respiratory Pattern Blood Pressure Blood Pressure Mean Blood Pressure Position Pulse Oximetry 93 93 90 Oxygen Delivery Method Oxygen Flow Rate Sepsis Recent Fever Within 48 Hours Sepsis New/Unexplained Change in Mental Status Sepsis Action Taken by Nursing 09/13/20 16:01 Temperature Temperature Source Pulse Rate 71 Pulse Rate from SpO2 Sensor 71 Pulse Rhythm Pulse Strength Respiratory Rate 33 H Respiratory Effort / Characteristics Respiratory Depth Respiratory Pattern Blood Pressure 106/42 L Blood Pressure Mean 63 Blood Pressure Position Pulse Oximetry 91 Oxygen Delivery Method Oxygen Flow Rate Sepsis Recent Fever Within 48 Hours Sepsis New/Unexplained Change in Mental Status Sepsis Action Taken by Nursing Laboratory Data Result diagrams: 09/13/20 14:38 09/13/20 14:38 Lab Results 09/13/20 09/13/20 09/13/20 Range/Units 14:38 14:38 14:38 WBC 6.73 (4.8-10.8) K/uL RBC 2.89 L (4.2-5.4) M/uL Hgb 9.0 L (12.0-16.0) g/dL Hct 29.0 L (37-47) % MCV 100.3 H (80-100) fL MCH 31.1 (25-34) pg MCHC 31.0 L (32-36) g/dL RDW Std Deviation 55.6 H (36.4-46.3) fL RDW Coeff of Leo 15.1 H (11.5-14.5) % Plt Count 200 (130-400) K/uL MPV 10.1 (7.4-10.4) fL Immature Gran % (Auto) 0.1 % Neut % (Auto) 60.5 % Lymph % (Auto) 28.5 % [place] % (Auto) 8.5 % Eos % (Auto) 2.1 % Baso % (Auto) 0.3 % Neut # (Auto) 4.07 (1.4-6.5) K/uL Lymph # (Auto) 1.92 (1.2-3.4) K/uL [place] # (Auto) 0.57 (0.11-0.59) K/uL Eos # (Auto) 0.14 (0-0.5) K/uL Baso # (Auto) 0.02 (0-0.2) K/uL Immature Gran # (Auto) 0.01 (0.00-0.02) K/uL Sodium 134 L (136-145) mmol/L Potassium 5.1 (3.5-5.1) mmol/L Chloride 99 (98-107) mmol/L Carbon Dioxide 33 H (21-32) mmol/L Anion Gap 2.0 L (3-11) BUN 34 H (7-18) mg/dl Creatinine 1.14 (0.6-1.2) mg/dl Est Cr Clr Drug Dosing 62.0 ml/min Est GFR ( Amer) 55.6 Est GFR (Non-Af Amer) 48.0 BUN/Creatinine Ratio 29.9 H (10-20) Glucose 116 H (70-99) mg/dl Calcium 8.3 L (8.5-10.1) mg/dl Total Bilirubin 0.2 (0.2-1) mg/dl AST 8 L (15-37) U/L ALT 11 L (12-78) U/L Alkaline Phosphatase 80 (45-117) U/L Troponin I 0.086 H* (0-0.045) ng/ml NT-Pro-B Natriuret Pep 3651 H (0-900) pg/ml Total Protein 5.5 L (6.4-8.2) gm/dl Albumin 2.3 L (3.4-5.0) gm/dl Globulin 3.2 (2.5-4.0) gm/dl Albumin/Globulin Ratio 0.7 L (0.9-2) Lipase 52 L (73-393) U/L Urine Color Yellow Urine Appearance Clear (Clear) Urine pH 5.5 (4.5-7.5) Ur Specific [place] 1.011 (1.000-1.030) Urine Protein Negative (Negative) Urine Glucose (UA) Negative (Negative) Urine Ketones Negative (Negative) Urine Blood Negative (Negative) Urine Nitrite Negative (Negative) Urine Bilirubin Negative (Negative) Urine Urobilinogen Negative (Negative) Ur Leukocyte Esterase 3+ H (Negative) Urine WBC (Auto) >30 H (0-5) /hpf Urine RBC (Auto) 0-4 (0-4) /hpf U Hyaline Cast (Auto) 1-5 (0-5) /lpf U Epithel Cells (Auto) 0-5 (0-5) /lpf Urine Bacteria (Auto) 2+ H (Negative) COVID-19 Eval Order SARS-CoV-2 (PCR) (Negative) Influenza Type A (PCR) (Neg) Influenza Type B (PCR) (Neg) RSV (RT-PCR) (Neg) 09/13/20 09/13/20 Range/Units 16:15 16:15 WBC (4.8-10.8) K/uL RBC (4.2-5.4) M/uL Hgb (12.0-16.0) g/dL Hct (37-47) % MCV (80-100) fL MCH (25-34) pg MCHC (32-36) g/dL RDW Std Deviation (36.4-46.3) fL RDW Coeff of Leo (11.5-14.5) % Plt Count (130-400) K/uL MPV (7.4-10.4) fL Immature Gran % (Auto) % Neut % (Auto) % Lymph % (Auto) % [place] % (Auto) % Eos % (Auto) % Baso % (Auto) % Neut # (Auto) (1.4-6.5) K/uL Lymph # (Auto) (1.2-3.4) K/uL [place] # (Auto) (0.11-0.59) K/uL Eos # (Auto) (0-0.5) K/uL Baso # (Auto) (0-0.2) K/uL Immature Gran # (Auto) (0.00-0.02) K/uL Sodium (136-145) mmol/L Potassium (3.5-5.1) mmol/L Chloride (98-107) mmol/L Carbon Dioxide (21-32) mmol/L Anion Gap (3-11) BUN (7-18) mg/dl Creatinine (0.6-1.2) mg/dl Est Cr Clr Drug Dosing ml/min Est GFR ( Amer) Est GFR (Non-Af Amer) BUN/Creatinine Ratio (10-20) Glucose (70-99) mg/dl Calcium (8.5-10.1) mg/dl Total Bilirubin (0.2-1) mg/dl AST (15-37) U/L ALT (12-78) U/L Alkaline Phosphatase (45-117) U/L Troponin I (0-0.045) ng/ml NT-Pro-B Natriuret Pep (0-900) pg/ml Total Protein (6.4-8.2) gm/dl Albumin (3.4-5.0) gm/dl Globulin (2.5-4.0) gm/dl Albumin/Globulin Ratio (0.9-2) Lipase (73-393) U/L Urine Color Urine Appearance (Clear) Urine pH (4.5-7.5) Ur Specific [place] (1.000-1.030) Urine Protein (Negative) Urine Glucose (UA) (Negative) Urine Ketones (Negative) Urine Blood (Negative) Urine Nitrite (Negative) Urine Bilirubin (Negative) Urine Urobilinogen (Negative) Ur Leukocyte Esterase (Negative) Urine WBC (Auto) (0-5) /hpf Urine RBC (Auto) (0-4) /hpf U Hyaline Cast (Auto) (0-5) /lpf U Epithel Cells (Auto) (0-5) /lpf Urine Bacteria (Auto) (Negative) COVID-19 Eval Order CovFluRsv at [facility] SARS-CoV-2 (PCR) NEGATIVE (Negative) Influenza Type A (PCR) Negative (Neg) Influenza Type B (PCR) Negative (Neg) RSV (RT-PCR) Negative (Neg) Administered Medications Discontinued Medications Furosemide (Furosemide 40 Mg/4 Ml Vial) 20 mg IV NOW STA Stop: 09/13/20 17:21 Last Admin: 09/13/20 17:44 Dose: 20 mg Documented by: [id number] Ceftriaxone Sodium (Rocephin) 1,000 mg in 50 mls @ 100 mls/hr IV NOW STA Stop: 09/13/20 16:11 Last Infusion: 09/13/20 16:28 Dose: 0 mls/hr Documented by: [id number] Admin: 09/13/20 16:11 Dose: 100 mls/hr Documented by: [id number] Imaging Data Radiologist's Impression: Head CT 09/13/20 14:22 CT SCAN OF THE BRAIN WITHOUT IV CONTRAST CLINICAL HISTORY: Change in mental status. COMPARISON STUDY: CT of the brain dated 08/07/2019. TECHNIQUE: Unenhanced axial CT scan of the brain is performed from the vertex to the skull base. A dose lowering technique was utilized adhering to the principles of ALARA. The patient was scanned twice due to motion artifact. CT DOSE: 1612.45 mGy.cm FINDINGS: Brain parenchyma: There are age-related involutional changes noting mild to moderate subcortical and periventricular microangiopathic change. There is no hemorrhage, mass effect, or evidence of acute territorial ischemia by CT criteria. Srivastava-white matter differentiation is preserved. No extra-axial fluid collection is seen. Ventricles, sulci, cisterns: Prominent secondary to involutional change. Intracranial vasculature: There is atherosclerotic calcification of the cavernous carotid and vertebral arteries. Calvarium: Unremarkable. Sinuses and mastoids: The visualized paranasal sinuses are clear. The mastoid air cells are well pneumatized. Orbits: The bony orbits are grossly intact. IMPRESSION: There is no hemorrhage, mass effect, or evidence of acute territorial ischemia by CT criteria. ACT 112: Negative or not required by law. Electronically signed by: Adiel Brantley M.D. 09/13/2020 3:23 PM Chest X-Ray 09/13/20 14:23 SINGLE VIEW CHEST CLINICAL HISTORY: Atypical chest pain. FINDINGS: An AP, portable, upright chest radiograph is compared to study dated 08/29/2020 and correlated with chest CT dated 07/05/2019. The heart is top normal for projection noting atherosclerotic calcification of the thoracic aorta. There is mild pulmonary vascular congestion. Emphysema and chronic interstitial thickening are similar to previous. There is chronic elevation right hemidiaph ragm with bibasilar scarring/atelectasis. Segmental atelectasis is seen in the right middle lobe. No airspace consolidation or large pleural effusion is identified. No pneumothorax is seen. The skeletal structures are osteopenic. The bony thorax is grossly intact. IMPRESSION: 1. Cardiomegaly with mild pulmonary vascular congestion. 2. Emphysema. 3. No airspace consolidation or large pleural effusion is identified. ACT 112: Negative or not required by law. Electronically signed by: Adiel Brantley M.D. 09/13/2020 3:00 PM Discharge Plan Visit Data Chief Complaint: Illness ED Provider: Maximiliano Torres Discharge Problem: Non-ST elevation OK (NSTEMI), Dizzy, AMS (altered mental status), Acute UTI Patient Disposition: Admitted As Inpatient Discharge Instructions Interventions: ED Discharge Assessment Last Done: 09/13/20 20:06
[2020-09-13 14:48] LABS: Basophils # (auto) 0.02 K/uL (0-0.2); Basophils % (auto) 0.3 %; Eosinophils # (auto) 0.14 K/uL (0-0.5); Eosinophils % (auto) 2.1 %; Immature Granulocytes # (auto) 0.01 K/uL (0.00-0.02); Immature Granulocytes % (auto) 0.1 %; Lymphocytes # (auto) 1.92 K/uL (1.2-3.4); Lymphocytes % (auto) 28.5 %; Mean Corpuscular Hemoglobin 31.1 pg (25-34); Mean Corpuscular Volume 100.3 fL (80-100); Mean Platelet Volume 10.1 fL (7.4-10.4); Monocytes # (auto) 0.57 K/uL (0.11-0.59); Monocytes % (auto) 8.5 %; Neutrophils # (auto) 4.07 K/uL (1.4-6.5); Neutrophils % (auto) 60.5 %; Platelet Count 200 K/uL (130-400); RDW Coefficient of Variation 15.1 % (11.5-14.5); RDW Standard Deviation 55.6 fL (36.4-46.3); Red Blood Count 2.89 M/uL (4.2-5.4); White Blood Count 6.73 K/uL (4.8-10.8)
[2020-09-13 14:56] LABS: Appearance Urine Clear (Clear); Bacteria Urine Automated 2+ (Negative); Bilirubin Urine Negative (Negative); Blood Urine Negative (Negative); Color Urine Yellow; Epithelial Cell Urine Auto 0-5 /lpf (0-5); Glucose Urine UA Negative (Negative); Ketones Urine Negative (Negative); Leukocyte Esterase Urine 3+ (Negative); Nitrite Urine Negative (Negative); Protein Urine Negative (Negative); RBC Urine Automated 0-4 /hpf (0-4); Specific Gravity Urine 1.011 (1.000-1.030); Urobilinogen Urine Negative (Negative); WBC Urine Automated >30 /hpf (0-5); pH Urine 5.5 (4.5-7.5)
--- NOTE | 2020-09-13 15:01 | XRay Report ---
SINGLE VIEW CHEST CLINICAL HISTORY: Atypical chest pain. FINDINGS: An AP, portable, upright chest radiograph is compared to study dated 08/29/2020 and correlate d with chest CT dated 07/05/2019. The heart is top normal for projection noting atherosclerotic calcif ication of the thoracic aorta. There is mild pulmonary vascular congestion. Emphysema and chronic int erstitial thickening are similar to previous. There is chronic elevation right hemidiaphragm with bib asilar scarring/atelectasis. Segmental atelectasis is seen in the right middle lobe. No airspace cons olidation or large pleural effusion is identified. No pneumothorax is seen. The skeletal structures a re osteopenic. The bony thorax is grossly intact. IMPRESSION: 1. Cardiomegaly with mild pulmonary vascular congestion. 2. Emphysema. 3. No airspace consolidation or large pleural effusion is identified. ACT 112: Negative or not required by law. Electronically signed by: Adiel Brantley M.D. 09/13/2020 3:00 PM
[2020-09-13 15:07] LABS: Albumin Level 2.3 gm/dl (3.4-5.0); BUN Creatinine Ratio 29.9 (10-20); Calcium 8.3 mg/dl (8.5-10.1); Est GFR (African American) 55.6; Potassium 5.1 mmol/L (3.5-5.1)
[2020-09-13 15:21] LABS: Albumin Globulin Ratio 0.7 (0.9-2); Bilirubin,Total 0.2 mg/dl (0.2-1); Globulin 3.2 gm/dl (2.5-4.0); Total Protein 5.5 gm/dl (6.4-8.2); Troponin I 0.086 ng/ml (0-0.045)
--- NOTE | 2020-09-13 15:24 | CT Scan Report ---
CT SCAN OF THE BRAIN WITHOUT IV CONTRAST CLINICAL HISTORY: Change in mental status. COMPARISON STUDY: CT of the brain dated 08/07/2019. TECHNIQUE: Unenhanced axial CT scan of the brain is performed from the vertex to the skull base. A do se lowering technique was utilized adhering to the principles of ALARA. The patient was scanned twice due to motion artifact. CT DOSE: 1612.45 mGy.cm FINDINGS: Brain parenchyma: There are age-related involutional changes noting mild to moderate subcortical and periventricular microangiopathic change. There is no hemorrhage, mass effect, or evidence of acute t erritorial ischemia by CT criteria. Srivastava-white matter differentiation is preserved. No extra-axial fl uid collection is seen. Ventricles, sulci, cisterns: Prominent secondary to involutional change. Intracranial vasculature: There is atherosclerotic calcification of the cavernous carotid and vertebr al arteries. Calvarium: Unremarkable. Sinuses and mastoids: The visualized paranasal sinuses are clear. The mastoid air cells are well pneu matized. Orbits: The bony orbits are grossly intact. IMPRESSION: There is no hemorrhage, mass effect, or evidence of acute territorial ischemia by CT jerson hernandez. ACT 112: Negative or not required by law. Electronically signed by: Adiel Brantley M.D. 09/13/2020 3:23 PM
[2020-09-13] MEDS ORDERED: cefTRIAXone SODIUM 1,000 MG/50 ML BAG IV STA (15:42)
[2020-09-13 17:10] LABS: Influenza A virus by PCR Negative (Neg); Influenza B virus by PCR Negative (Neg); RSV by PCR Negative (Neg); SARS CoV2 RNA(COVID-19) InHosp NEGATIVE (Negative)
[2020-09-13] MEDS ORDERED: FUROSEMIDE 40 MG/4 ML VIAL IV STA (17:20)
--- NOTE | 2020-09-13 17:33 | History & Physical Report ---
Date of Service September 13, 2020 Assessment & Plan (1) Dizziness: (2) Involuntary muscle contractions: This is a 70-year-old female who has significant past medical history of severe COPD on chronic 2 L of O2, chronic diastolic CHF, moderate aortic stenosis, HTN, HLD, depression with anxiety, chronic narcotic use, history of PE, morbid obesity, CKD stage III who presents ED secondary to dizziness and shaking x1 day. Pt with recent med changes including discontinuation of Dilaudid which she has been on chronically 1 mg every 4 hours as needed to oxycodone 5 to 10 mg every 6 hours as needed Son also concerned regarding mothers ativan. She has been on for several years. Patient also feels like she is not receiving Ativan at facility. Anxiety has been heightened and medication they been getting there has not been working. Question if setting of withdrawal versus med reaction, versus CO2 retention, infection among other things. Admit to med telemetry Continue infectious work-up as below Continue oxycodone for now Consider pain management evaluation (3) Infection: Possible UTI UA suspicious for infection; however chronic Gonzalez catheter Replace Gonzalez Await urine culture Empirically treat with IV Rocephin Possible infection of right lower extremity lateral incision Incision red/warm, mild drainage Obtain surface culture of drainage Consult orthopedics Obtain x-ray Recently seen in clinic on 09/09, per retirement redness and warmth started 1 day ago Empirically treat with IV vancomycin and Rocephin Blood cultures obtained Patient previously had MRSA in n[place], contact isolation (4) Elevated troponin: Chronically elevated in past No chest pain or shortness of breath, EKG without ST change Repeat troponin Possibly in setting of mild CHF (5) Diastolic CHF due to valvular disease: Acute on chronic diastolic CHF Aortic Stenosis - moderate Patient with evidence of pulmonary vascular congestion on imaging, increase in lower extremity edema Obtain bilateral venous Doppler to rule out DVT in setting of recent surgery Give 20 mg IV Lasix x1 now (she took home dose of 20mg oral today) Then 40 mg daily IV, monitor BMP Daily weights, strict I's and O's Recent echocardiogram 06/2019 revealed EF 60 to 65%, diastolic dysfunction, moderate aortic stenosis/AI (6) Right femoral fracture: Right periprosthetic femoral fracture status post ORIF and IM nail in [place] 06/2020 Patient with loosened screw and non wound healing requiring wound and hardware revision on 09/[address] Sherbondy Now with increased redness and warmth to incision Consult orthopedics (7) Hypertension: Blood pressure on lower side on admission Continue metoprolol, hold lisinopril Reassess in a.m., resume lisinopril when able (8) CKD (chronic kidney disease) stage 3, GFR 30-59 ml/min: BUN/creatinine 34 and 1.14 today Baseline creatinine 1.1-1.2 Monitor closely (9) COPD (chronic obstructive pulmonary disease): Chronic hypoxic respiratory failure on 2 L of O2 No acute exacerbation Continue Trelegy, as needed nebs (10) Anxiety: (11) Depression: Depression with anxiety Continue amitriptyline, trazodone, citalopram and as needed Ativan Patient states that she has been on Ativan for many years (12) Anemia: H&H 9.0 and 29.0 Prior to 2 recent procedures hemoglobin was 13.5 on 07/13/2020 Obtain anemia panel in a.m. (13) Morbid obesity: BMI 46.7 Encourage lifestyle and diet modifications (14) DVT prophylaxis: SQ Lovenox twice daily secondary to weight Dispo: Medical telemetry PCP: Patrick, but currently under Dr. Mann at [facility] DNR/DNI Patient was seen and examined in collaboration with Dr. Montanez, please see addendum (15) UTI (urinary tract infection): (16) Sepsis: (17) Cellulitis of right lower extremity: History of Present Illness Chief Complaint: Dizziness and shaking x1 day. Primary Care Provider: [facility] This is a 70-year-old female who has significant past medical history of severe COPD on chronic 2 L of O2, chronic diastolic CHF, moderate aortic stenosis, HTN, HLD, depression with anxiety, chronic narcotic use, history of PE, morbid obesity, CKD stage III who presents ED secondary to dizziness and shaking x1 day. Of significance patient currently resides at [facility] for acute rehab. Patient has a significant recent medical history of hospitalization at [facility] secondary to mechanical fall at home. Patient sustained a right femur fracture requiring transfer to [place]. In June she underwent ORIF and right IM nail, I&D by Dr. Kaba. She tolerated procedure well and was to discharge to [facility] and then later [facility]. Unfortunately patient had delayed wound healing and loosened screw and had to undergo wound revision and hardware revision by Dr. David Mills on 09/02. She then [facility]. She presents to us today due to complaints of ill feeling the past 2 days, decreased appetite, upper extremity shaking and tremor and dizziness, "like things are spinning." She denies any recent fever, chills, sweats, presyncope, chest pain, shortness of breath, cough, hemoptysis, nausea, vomiting, abdominal pain, melena or hematochezia. She continues to have a Gonzalez catheter in place. She has been participating in PT and overall feels that has been going okay. She admits to increased lower extremity swelling over the past week. After speaking with nursing facility patient had recent change in medications. On 09/03 her chronic Dilaudid had been discontinued. She was taking 1 mg every 4 hours as needed. This was switched to oxycodone 5 or 10 mg every 6 hours as needed for pain. Patient is not happy about this. In ED patient remained hemodynamically stable although had mild elevated temp 37.6 and lower BP of 106/42. Lab work notable for H&H 9.0 and 29.0, platelet 200, sodium 134, K5.1, BUN 34, creatinine 1.14, glucose 116, troponin 0.086. Her urinalysis was consistent with possible infection but she does have chronic Gonzalez catheter in place. She was treated empirically with IV Rocephin. Chest x-ray concerning for mild pulmonary vascular congestion. Head CT without acute abnormality. Allergies Allergy/AdvReac Type Severity Reaction Status Date / Time No Known Allergies Allergy Verified 09/13/20 15:30 Home Medications Medication Instructions Recorded Confirmed Type docusate sodium [Stool Softener] 100 mg PO BID 10/07/18 09/13/20 History ergocalciferol (vitamin D2) 50,000 unit PO WK 10/07/18 09/13/20 History [Vitamin D2] fluticasone propionate [Flonase 2 spray INTRANASAL DAILY PRN 10/07/18 09/13/20 History Allergy Relief] furosemide [Lasix] 20 mg PO QAM 10/07/18 09/13/20 History lisinopril [Zestril] 5 mg PO QAM 10/07/18 09/13/20 History montelukast [Singulair] 10 mg PO HS 10/07/18 09/13/20 History pantoprazole [Protonix] 40 mg PO QAM 10/07/18 09/13/20 History simvastatin [Zocor] 40 mg PO HS 10/07/18 09/13/20 History trazodone 50 mg PO HS 10/07/18 09/13/20 History Oxygen Home #1 ea 10/10/18 08/27/20 Rx metoprolol succinate [Toprol XL] 25 mg PO QAM 04/30/19 09/13/20 History aspirin 81 mg PO QAM 06/14/19 09/13/20 History ipratropium-albuterol 3 ml INHALATION Q4H PRN 06/14/19 09/13/20 History lorazepam [Ativan] 1 mg PO BID PRN 07/13/20 09/13/20 History ascorbic acid (vitamin C) 500 mg 500 mg PO BID 08/27/20 09/13/20 History tablet citalopram 20 mg tablet 10 mg PO QAM tab 08/27/20 09/13/20 History enoxaparin 40 mg/0.4 mL 40 mg SUBCUT QAM 08/27/20 09/13/20 History subcutaneous syringe guaifenesin 100 mg/5 mL oral liquid 100 mg PO Q4H PRN ml 08/27/20 09/13/20 History lidocaine 5 % topical patch 1 patch TOPICAL BID 08/27/20 09/13/20 History nystatin 100,000 unit/gram topical 1 applic TOPICAL BID 08/27/20 09/13/20 History powder pregabalin 100 mg capsule 150 mg PO TID 08/27/20 09/13/20 History protein supplement 30 ea PO DAILY ml 08/27/20 09/13/20 History amitriptyline 10 mg PO HS 09/01/20 09/13/20 History multivitamin 1 tab PO QAM 09/01/20 09/13/20 History polyethylene glycol 3350 [Miralax] 17 g PO QAM 09/01/20 09/13/20 History acetaminophen 1,000 mg PO Q8 PRN #30 tab 09/03/20 09/13/20 Rx diclofenac sodium [Voltaren] 2 g TOPICAL QID 09/13/20 09/13/20 History ypocltwrbcg-rjoxmucrn-wcjarkzm 1 inh INHALATION QAM 09/13/20 09/13/20 History [Trelegy Ellipta] ondansetron HCl 4 mg PO Q6H PRN 09/13/20 09/13/20 History oxycodone 10 mg PO Q6H PRN 09/13/20 09/13/20 History Past Med/Surg History Medical History Anxiety Chronic indwelling Gonzalez catheter CKD (chronic kidney disease) stage 3, GFR 30-59 ml/min Baseline creatine around 1.2 COPD (chronic obstructive pulmonary disease) on 3 liters of oxygen per records Depression Diastolic CHF due to valvular disease GERD (gastroesophageal reflux disease) History of pulmonary embolism 2013 Hyperlipidemia Hypertension Lumbar radiculopathy Macular degeneration Moderate aortic stenosis Per 07/14/20 ECHO: PATO 1.3-1.6 cm; AV peak velocity 3.52 m/s; AV mean gradient 21.1 mmHg Morbid obesity Poor vision Recurrent UTI Urinary retention with incomplete bladder emptying Surgical History History of cholecystectomy History of hysterectomy History of right knee surgery History of surgery Right distal femur periprosthetic open reduction 07/14/20 and right femur I&D History of total left knee replacement History of total right hip arthroplasty History of total right knee replacement Family History Other Cancer Social History Smoking Status: Former smoker Second Hand Exposure: No; Hx Alcohol Use: No Hx Substance Use: No Preferred Language: Iranian Communication Ability: Effective Shearing Shed Hand Required: No Beliefs That Will Affect Care: None marital status: / Current Living Situation: Personal Care Facility Current Living Situation Comment: [facility] resident current occupational status: retired Feels Safe at Home: Yes Assistive Devices: Oxygen - at Night and Walker Review of Systems Review of Systems: All systems reviewed & are unremarkable except as noted in HPI & below Physical Exam Physical Exam: Constitutional: WD/WN, elderly, female, vitals as above, NAD, sitting up in bed, pleasant, conversing easily Head: Normocephalic, Atraumatic Eyes: PERRL, conjunctivae normal, anicteric sclerae ENMT: external ear and nose normal, oropharynx normal Neck: trachea midline, no thyromegaly normal visual inspection Respiratory: normal respiratory effort, lungs clear to auscultation, no wheeze, rales, rhonchi. Normal insp/exp effort, no accessory muscle use Cardiovascular: RRR, 2/6 CASSI noted RUSB, +2 lower extremity pretibial edema Vessels: no JVD or carotid bruit Chest: normal inspection of chest Abdomen: Obese abdomen, normal bowel sounds, soft, nontender, no hepatosplenomegaly Musculoskeletal: no cyanosis or clubbing, active range of motion x4, right lower extremity lateral thigh incision erythematous, warm, scant white drainage, louis intact Skin: no rashes, warm and dry normal turgor Neurologic: PERRL, EOMI, accommodation nl, no face palsy, no dysarthria CN's II-XI intact bilaterally and moves all extremities Psychiatric: A+Ox3, euthymic affect Lymphatic: no cervical or axillary lymphadenopathy : Gonzalez catheter in place draining yellow urine Results & Data Results & Data ([facility]) Vital Signs (Past 12 Hours) Vital Signs Temp Pulse Resp BP Pulse Ox 09/13/20 16:20 37.6 C H 09/13/20 16:01 71 33 H 106/42 L 91 09/13/20 16:00 70 27 H 90 09/13/20 15:50 67 15 93 09/13/20 15:40 66 15 93 09/13/20 15:31 65 13 94 09/13/20 15:30 65 11 L 115/45 L 93 09/13/20 15:20 66 10 L 93 09/13/20 15:14 67 10 L 92 09/13/20 15:00 70 115/56 L 95 09/13/20 14:50 71 16 95 09/13/20 14:30 69 22 124/43 L 95 09/13/20 14:10 37.3 C 75 16 133/47 L 91 09/13/20 14:06 72 14 133/47 L [address] 09/13/20 14:22 CT SCAN OF THE BRAIN WITHOUT IV CONTRAST CLINICAL HISTORY: Change in mental status. COMPARISON STUDY: CT of the brain dated 08/07/2019. TECHNIQUE: Unenhanced axial CT scan of the brain is performed from the vertex to the skull base. A dose lowering technique was utilized adhering to the principles of ALARA. The patient was scanned twice due to motion artifact. CT DOSE: 1612.45 mGy.cm FINDINGS: Brain parenchyma: There are age-related involutional changes noting mild to moderate subcortical and periventricular microangiopathic change. There is no h emorrhage, mass effect, or evidence of acute territorial ischemia by CT criteria. Srivastava-white matter differentiation is preserved. No extra-axial fluid collection is seen. Ventricles, sulci, cisterns: Prominent secondary to involutional change. Intracranial vasculature: There is atherosclerotic calcification of the cavernous carotid and vertebral arteries. Calvarium: Unremarkable. Sinuses and mastoids: The visualized paranasal sinuses are clear. The mastoid air cells are well pneumatized. Orbits: The bony orbits are grossly intact. IMPRESSION: There is no hemorrhage, mass effect, or evidence of acute territorial ischemia by CT criteria. ACT 112: Negative or not required by law. Electronically signed by: Adiel Brantley M.D. 09/13/2020 3:23 PM Chest X-Ray 09/13/20 14:23 SINGLE VIEW CHEST CLINICAL HISTORY: Atypical chest pain. FINDINGS: An AP, portable, upright chest radiograph is compared to study dated 08/29/2020 and correlated with chest CT dated 07/05/2019. The heart is top normal for projection noting atherosclerotic calcification of the thoracic aorta. There is mild pulmonary vascular congestion. Emphysema and chronic interstitial thickening are similar to previous. There is chronic elevation right hemidiaphragm with bibasilar scarring/atelectasis. Segmental atelectasis is seen in the right middle lobe. No airspace consolidation or large pleural effusion is identified. No pneumothorax is seen. The skeletal structures are osteopenic. The bony thorax is grossly intact. IMPRESSION: 1. Cardiomegaly with mild pulmonary vascular congestion. 2. Emphysema. 3. No airspace consolidation or large pleural effusion is identified. ACT 112: Negative or not required by law. Electronically signed by: Adiel Brantley M.D. 09/13/2020 3:00 PM Medications Administered Discontinued Medications Ceftriaxone Sodium (Rocephin) 1,000 mg in 50 mls @ 100 mls/hr IV NOW STA Stop: 09/13/20 16:11 Last Infusion: 09/13/20 16:28 Dose: 0 mls/hr Documented by: [id number] Admin: 09/13/20 16:11 Dose: 100 mls/hr Documented by: [id number] ECG Rate (beats per minute): 70 Rhythm: normal sinus COVID-19 Results Results COVID-19 Adm Lab Results: RBC 2.89 M/uL (4.2-5.4) L 09/13/20 WBC 6.73 K/uL (4.8-10.8) 09/13/20 Hgb 9.0 g/dL (12.0-16.0) L 09/13/20 Hct 29.0 % (37-47) L 09/13/20 Plt Count 200 K/uL (130-400) 09/13/20 Neutrophils (%) (Auto) 60.5 % 09/13/20 Lymphocytes (%) (Auto) 28.5 % 09/13/20 Monocytes # (Auto) 0.57 K/uL (0.11-0.59) 09/13/20 Eosinophils # (Auto) 0.14 K/uL (0-0.5) 09/13/20 Immature Granulocyte % (Auto) 0.1 % 09/13/20 Neutrophils # (Auto) 4.07 K/uL (1.4-6.5) 09/13/20 Lymphocytes # (Auto) 1.92 K/uL (1.2-3.4) 09/13/20 Monocytes # (Auto) 0.57 K/uL (0.11-0.59) 09/13/20 Eosinophils # (Auto) 0.14 K/uL (0-0.5) 09/13/20 Basophils # (Auto) 0.02 K/uL (0-0.2) 09/13/20 Immature Granulocyte # (Auto) 0.01 K/uL (0.00-0.02) 09/13/20 Na 134 mmol/L (136-145) L 09/13/20 K 5.1 mmol/L (3.5-5.1) 09/13/20 Cl 99 mmol/L (98-107) 09/13/20 CO2 33 mmol/L (21-32) H 09/13/20 Anion Gap 2.0 (3-11) L 09/13/20 BUN 34 mg/dl (7-18) H 09/13/20 Creatinine 1.14 mg/dl (0.6-1.2) 09/13/20 BUN/Creatinine Ratio 29.9 (10-20) H 09/13/20 Glucose Level 116 mg/dl (70-99) H 09/13/20 Ca 8.3 mg/dl (8.5-10.1) L 09/13/20 Total Bilirubin 0.2 mg/dl (0.2-1) 09/13/20 AST/SGOT 8 U/L (15-37) L 09/13/20 ALT/SGPT 11 U/L (12-78) L 09/13/20 Alkaline Phosphatase 80 U/L (45-117) 09/13/20 Total Protein 5.5 gm/dl (6.4-8.2) L 09/13/20 Albumin 2.3 gm/dl (3.4-5.0) L 09/13/20 Globulin 3.2 gm/dl (2.5-4.0) 09/13/20 Albumin/Globulin Ratio 0.7 (0.9-2) L 09/13/20 Troponin I 0.084 ng/ml (0-0.045) H* 09/13/20 [id number]-M-Type Natriuretic Pep 3651 pg/ml (0-900) H 09/13/20 COVID-19 PCR NEGATIVE (Negative) 09/13/20 Influenza Virus Type A (PCR) Negative (Neg) 09/13/20 Influenza Virus Type B (PCR) Negative (Neg) 09/13/20 Chest X-Ray 09/13/20 Code Status & VTE Plan Code Status DNR/DNI VTE Prophylaxis Plan VTE Prophylaxis will be ordered: Yes Supervising Physician Co-Signing Physician Notes I have seen and examined the patient and have discussed the case with the provider above. I agree with the assessment and plan as stated. 70 yo F with UTI and possible RLE post op wound infection creating a possible developing sepsis situation. She is oriented and answering my questions appropriately. She has a fair recollection of events. Physical exam reveals an obese elderly f emale in NAD who does demonstrate some spasticity with movement. She is not working to breathe and lungs are CTAB. Heart rate is regular and rhythm is regular without murmurs. No CVA tenderness present. Very slight discomfort to palpation in suprapubic area. Otherwise abdomen is soft, NTND and there is no guarding present. Right knee is wrapped in surgical dressing. Discussed wound appearance with provider above who noted erythema and drainage. Agree with plan as stated above and will consult Neurology to assist with etiology of this spasticity. DO Tarik (1) COPD (chronic obstructive pulmonary disease) COPD type: unspecified COPD Qualified Code(s): J44.9 - Chronic obstructive pulmonary disease, unspecified
[2020-09-13 18:12] LABS: Base Excess VBG 5.4 mEq/L; Oxygen Saturation VBG 82.6 %; pH VBG 7.32 (7.36-7.41)
--- NOTE | 2020-09-13 19:33 | XRay Report ---
RIGHT FEMUR 2 VIEWS CLINICAL HISTORY: Recent surgery. Erythema of the right thigh. FINDINGS: AP and crosstable lateral views of the right femur are compared to study dated 08/25/2020. Th e skeletal structures are osteopenic. A bipolar right hip arthroplasty and a right knee arthroplasty with a long femoral stem are in near-anatomic alignment. Again seen is a comminuted fracture of the d istal femoral metadiaphysis with mildly offset fragments status post buttress plate fixation along th e lateral cortex. Alignment remains near-anatomic. No new fracture is identified. The orthopedic hard charles appears intact. No bony erosion is identified. Mild soft tissue edema is seen throughout the thi gh. The visualized right hemipelvis appears intact. IMPRESSION: 1. Postoperative and posttraumatic changes as above. Femoral alignment remains near-anatomic. 2. No new fracture is identified. Electronically signed by: Adiel Brantley M.D. 09/13/2020 7:32 PM
[2020-09-13] MEDS ORDERED: ALUMINUM/MAGNESIUM SUSP 30 ML UDC PO PRN (20:10)
[2020-09-13] MEDS ORDERED: MAGNESIUM HYDROXIDE SUSP 30 ML UDC PO PRN (20:10)
[2020-09-13] MEDS ORDERED: VANCOMYCIN CONSULT ACTIVE PRN (20:10)
[2020-09-13] MEDS ORDERED: ALBUT/IPRATROP 3MG/0.5MG NEB 3 ML VIAL INH PRN (20:10)
[2020-09-13] MEDS ORDERED: ONDANSETRON INJ 2 MG/ML 2 ML VIAL IV PRN (20:10)
[2020-09-13] MEDS ORDERED: POLYETHYLENE (MIRALAX) 17 GM PACK PO PRN (20:10)
--- NOTE | 2020-09-13 20:35 | Orthopedic Consultation ---
Date of Consultation September 13, 2020 Assessment & Plan (1) Right femoral fracture: 11 days s/p revision wound and hardware right femur. patient has history non-healing wound. Continue antibiotics. WBAT PT/OT DVT prophylaxis was switched from Lovenox to aspirin this past week. Radiographs look unchanged. Will continue to follow. Continue care per primary service. Present on Admission?: Yes History of Present Illness Reason for Consultation: Right wound check Requesting Physician: Courtney Garcia MD History of Present Illness The patient is a 70-year-old female who has significant past medical history of severe COPD on chronic 2 L of O2, chronic diastolic CHF, moderate aortic sten osis, HTN, HLD, depression with anxiety, chronic narcotic use, history of PE, morbid obesity, CKD stage III who presents ED secondary to dizziness and shaking x1 day. She is being admitted by the hospitalist service and there were concerns about her right lower leg lateral incision. She had under gone RLE wound revision and hardware revision of the right femur with Dr. oTbar on 09/02/20. She had some louis removed in the office 09/10/20 and has a follow-up appointment 09/19/[address] Tobar. Her DVT prophylaxis was switched to aspirin. Allergies Allergy/AdvReac Type Severity Reaction Status Date / Time No Known Allergies Allergy Verified 09/13/20 15:30 Home Medications Medication Instructions Recorded Confirmed Type docusate sodium [Stool Softener] 100 mg PO BID 10/07/18 09/13/20 History ergocalciferol (vitamin D2) 50,000 unit PO WK 10/07/18 09/13/20 History [Vitamin D2] fluticasone propionate [Flonase 2 spray INTRANASAL DAILY PRN 10/07/18 09/13/20 History Allergy Relief] furosemide [Lasix] 20 mg PO QAM 10/07/18 09/13/20 History lisinopril [Zestril] 5 mg PO QAM 10/07/18 09/13/20 History montelukast [Singulair] 10 mg PO HS 10/07/18 09/13/20 History pantoprazole [Protonix] 40 mg PO QAM 10/07/18 09/13/20 History simvastatin [Zocor] 40 mg PO HS 10/07/18 09/13/20 History trazodone 50 mg PO HS 10/07/18 09/13/20 History Oxygen Home #1 ea 10/10/18 08/27/20 Rx metoprolol succinate [Toprol XL] 25 mg PO QAM 04/30/19 09/13/20 History aspirin 81 mg PO QAM 06/14/19 09/13/20 History ipratropium-albuterol 3 ml INHALATION Q4H PRN 06/14/19 09/13/20 History lorazepam [Ativan] 1 mg PO BID PRN 07/13/20 09/13/20 History ascorbic acid (vitamin C) 500 mg 500 mg PO BID 08/27/20 09/13/20 History tablet citalopram 20 mg tablet 10 mg PO QAM tab 08/27/20 09/13/20 History enoxaparin 40 mg/0.4 mL 40 mg SUBCUT QAM 08/27/20 09/13/20 History subcutaneous syringe guaifenesin 100 mg/5 mL oral liquid 100 mg PO Q4H PRN ml 08/27/20 09/13/20 History lidocaine 5 % topical patch 1 patch TOPICAL BID 08/27/20 09/13/20 History nystatin 100,000 unit/gram topical 1 applic TOPICAL BID 08/27/20 09/13/20 History powder pregabalin 100 mg capsule 150 mg PO TID 08/27/20 09/13/20 History protein supplement 30 ea PO DAILY ml 08/27/20 09/13/20 History amitriptyline 10 mg PO HS 09/01/20 09/13/20 History multivitamin 1 tab PO QAM 09/01/20 09/13/20 History polyethylene glycol 3350 [Miralax] 17 g PO QAM 09/01/20 09/13/20 History acetaminophen 1,000 mg PO Q8 PRN #30 tab 09/03/20 09/13/20 Rx diclofenac sodium [Voltaren] 2 g TOPICAL QID 09/13/20 09/13/20 History wyvdzixalml-ypxmzhksz-asotxgyl 1 inh INHALATION QAM 09/13/20 09/13/20 History [Trelegy Ellipta] ondansetron HCl 4 mg PO Q6H PRN 09/13/20 09/13/20 History oxycodone 10 mg PO Q6H PRN 09/13/20 09/13/20 History Patient History Medical History Anxiety Chronic indwelling Gonzalez catheter CKD (chronic kidney disease) stage 3, GFR 30-59 ml/min Baseline creatine around 1.2 COPD (chronic obstructive pulmonary disease) on 3 liters of oxygen per records Depression Diastolic CHF due to valvular disease GERD (gastroesophageal reflux disease) History of pulmonary embolism 2013 Hyperlipidemia Hypertension Lumbar radiculopathy Macular degeneration Moderate aortic stenosis Per 07/14/20 ECHO: PATO 1.3-1.6 cm; AV peak velocity 3.52 m/s; AV mean gradient 21.1 mmHg Morbid obesity Poor vision Recurrent UTI Urinary retention with incomplete bladder emptying Surgical History History of cholecystectomy History of hysterectomy History of right knee surgery History of surgery Right distal femur periprosthetic open reduction 07/14/20 and right femur I&D History of total left knee replacement History of total right hip arthroplasty History of total right knee replacement Family History Other Cancer Social History Smoking Status: Former smoker Second Hand Exposure: No; Hx Alcohol Use: No Hx Substance Use: No Preferred Language: Somali Communication Ability: Effective 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 Wiggling toes and ankle. BCR < 2 sec. Calf is soft and non-tender. Lateral incision with Nylon sutures. Minimal surrounding erythema. Unable to expresses and fluid. Dressing with minimal serosanguineous drainage. Results & Data ([facility]) Vital Signs (Past 12 Hours) Vital Signs Temp Pulse Resp BP Pulse Ox 09/13/20 20:00 65 13 122/41 L 99 09/13/20 19:50 69 20 108/49 L 99 09/13/20 18:30 65 15 124/42 L 94 09/13/20 18:00 64 15 113/38 L 93 09/13/20 17:30 64 14 107/44 L 92 09/13/20 17:00 65 15 114/45 L 90 09/13/20 16:30 69 19 119/58 L 92 09/13/20 16:20 37.6 C H 09/13/20 16:01 71 33 H 106/42 L 91 09/13/20 16:00 70 27 H 90 09/13/20 15:50 67 15 93 09/13/20 15:40 66 15 93 09/13/20 15:31 65 13 94 09/13/20 15:30 65 11 L 115/45 L 93 09/13/20 15:20 66 10 L 93 09/13/20 15:14 67 10 L 92 09/13/20 15:00 70 115/56 L 95 09/13/20 14:50 71 16 95 09/13/20 14:30 69 22 124/43 L 95 09/13/20 14:10 37.3 C 75 16 133/47 L 91 09/13/20 14:06 72 14 133/47 L 95 Laboratory Results 09/13/20 09/13/20 09/13/20 Range/Units 18:01 16:15 16:15 WBC (4.8-10.8) K/uL RBC (4.2-5.4) M/uL Hgb (12.0-16.0) g/dL Hct (37-47) % MCV (80-100) fL MCH (25-34) pg MCHC (32-36) g/dL RDW Std Deviation (36.4-46.3) fL RDW Coeff of Leo (11.5-14.5) % Plt Count (130-400) K/uL MPV (7.4-10.4) fL Immature Gran % (Auto) % Neut % (Auto) % Lymph % (Auto) % Howell % (Auto) % Eos % (Auto) % Baso % (Auto) % Neut # (Auto) (1.4-6.5) K/uL Lymph # (Auto) (1.2-3.4) K/uL Howell # (Auto) (0.11-0.59) K/uL Eos # (Auto) (0-0.5) K/uL Baso # (Auto) (0-0.2) K/uL Immature Gran # (Auto) (0.00-0.02) K/uL VBG pH 7.32 L (7.36-7.41) VBG pCO2 66 H (38-50) mmHg VBG pO2 49 mmHg VBG HCO3 33 mmol/L VBG O2 Saturation 82.6 % VBG Base Excess 5.4 mEq/L Barometric Pressure 729.0 mm/Hg Sodium (136-145) mmol/L Potassium (3.5-5.1) mmol/L Chloride (98-107) mmol/L Carbon Dioxide (21-32) mmol/L Anion Gap (3-11) BUN (7-18) mg/dl Creatinine (0.6-1.2) mg/dl Est Cr Clr Drug Dosing ml/min Est GFR ( Amer) Est GFR (Non-Af Amer) BUN/Creatinine Ratio (10-20) Glucose (70-99) mg/dl Calcium (8.5-10.1) mg/dl Total Bilirubin (0.2-1) mg/dl AST (15-37) U/L ALT (12-78) U/L Alkaline Phosphatase (45-117) U/L Troponin I (0-0.045) ng/ml NT-Pro-B Natriuret Pep (0-900) pg/ml Total Protein (6.4-8.2) gm/dl Albumin (3.4-5.0) gm/dl Globulin (2.5-4.0) gm/dl Albumin/Globulin Ratio (0.9-2) Lipase (73-393) U/L Urine Color Urine Appearance (Clear) Urine pH (4.5-7.5) Ur Specific [place] (1.000-1.030) Urine Protein (Negative) Urine Glucose (UA) (Negative) Urine Ketones (Negative) Urine Blood (Negative) Urine Nitrite (Negative) Urine Bilirubin (Negative) Urine Urobilinogen (Negative) Ur Leukocyte Esterase (Negative) Urine WBC (Auto) (0-5) /hpf Urine RBC (Auto) (0-4) /hpf U Hyaline Cast (Auto) (0-5) /lpf U Epithel Cells (Auto) (0-5) /lpf Urine Bacteria (Auto) (Negative) COVID-19 Eval Order CovFluRsv at [facility] SARS-CoV-2 (PCR) NEGATIVE (Negative) Influenza Type A (PCR) Negative (Neg) Influenza Type B (PCR) Negative (Neg) RSV (RT-PCR) Negative (Neg) 09/13/20 09/13/20 09/13/20 Range/Units 14:38 14:38 14:38 WBC 6.73 (4.8-10.8) K/uL RBC 2.89 L (4.2-5.4) M/uL Hgb 9.0 L (12.0-16.0) g/dL Hct 29.0 L (37-47) % MCV 100.3 H (80-100) fL MCH 31.1 (25-34) pg MCHC 31.0 L (32-36) g/dL RDW Std Deviation 55.6 H (36.4-46.3) fL RDW Coeff of Leo 15.1 H (11.5-14.5) % Plt Count 200 (130-400) K/uL MPV 10.1 (7.4-10.4) fL Immature Gran % (Auto) 0.1 % Neut % (Auto) 60.5 % Lymph % (Auto) 28.5 % Howell % (Auto) 8.5 % Eos % (Auto) 2.1 % Baso % (Auto) 0.3 % Neut # (Auto) 4.07 (1.4-6.5) K/uL Lymph # (Auto) 1.92 (1.2-3.4) K/uL Howell # (Auto) 0.57 (0.11-0.59) K/uL Eos # (Auto) 0.14 (0-0.5) K/uL Baso # (Auto) 0.02 (0-0.2) K/uL Immature Gran # (Auto) 0.01 (0.00-0.02) K/uL VBG pH (7.36-7.41) VBG pCO2 (38-50) mmHg VBG pO2 mmHg VBG HCO3 mmol/L VBG O2 Saturation % VBG Base Excess mEq/L Barometric Pressure mm/Hg Sodium 134 L (136-145) mmol/L Potassium 5.1 (3.5-5.1) mmol/L Chloride 99 (98-107) mmol/L Carbon Dioxide 33 H (21-32) mmol/L Anion Gap 2.0 L (3-11) BUN 34 H (7-18) mg/dl Creatinine 1.14 (0.6-1.2) mg/dl Est Cr Clr Drug Dosing 62.0 ml/min Est GFR ( Amer) 55.6 Est GFR (Non-Af Amer) 48.0 BUN/Creatinine Ratio 29.9 H (10-20) Glucose 116 H (70-99) mg/dl Calcium 8.3 L (8.5-10.1) mg/dl Total Bilirubin 0.2 (0.2-1) mg/dl AST 8 L (15-37) U/L ALT 11 L (12-78) U/L Alkaline Phosphatase 80 (45-117) U/L Troponin I 0.086 H* (0-0.045) ng/ml NT-Pro-B Natriuret Pep 3651 H (0-900) pg/ml Total Protein 5.5 L (6.4-8.2) gm/dl Albumin 2.3 L (3.4-5.0) gm/dl Globulin 3.2 (2.5-4.0) gm/dl Albumin/Globulin Ratio 0.7 L (0.9-2) Lipase 52 L (73-393) U/L Urine Color Yellow Urine Appearance Clear (Clear) Urine pH 5.5 (4.5-7.5) Ur Specific [place] 1.011 (1.000-1.030) Urine Protein Negative (Negative) Urine Glucose (UA) Negative (Negative) Urine Ketones Negative (Negative) Urine Blood Negative (Negative) Urine Nitrite Negative (Negative) Urine Bilirubin Negative (Negative) Urine Urobilinogen Negative (Negative) Ur Leukocyte Esterase 3+ H (Negative) Urine WBC (Auto) >30 H (0-5) /hpf Urine RBC (Auto) 0-4 (0-4) /hpf U Hyaline Cast (Auto) 1-5 (0-5) /lpf U Epithel Cells (Auto) 0-5 (0-5) /lpf Urine Bacteria (Auto) 2+ H (Negative) COVID-19 Eval Order SARS-CoV-2 (PCR) (Negative) Influenza Type A (PCR) (Neg) Influenza Type B (PCR) (Neg) RSV (RT-PCR) (Neg) Diagnostic Findings I reviewed the radiographs of the right femur which show maintained alignment of the distal metaphyseal periprosthetic femur fracture status post ORIF, with lateral plate and TKA and PLACIDO components.
[2020-09-13] MEDS ORDERED: VANCOMYCIN HCL 2,750 MG in SODIUM CHLORIDE 0.9% 500 ML IV ONE (21:00)
[2020-09-13] MEDS: DICLOFENAC SOD 1% GEL 100 GM TUBE EXT SCH ×2 (22:30→22:34)
[2020-09-13] MEDS: ENOXAPARIN INJ 40 MG/0.4 ML SYR SQ SCH (22:31)
[2020-09-13] MEDS: traZODone HCL 50 MG TAB PO SCH (22:32)
[2020-09-13] MEDS: PREGABALIN 150 MG CAP PO SCH (22:32)
[2020-09-13] MEDS: SIMVASTATIN 40 MG TAB PO SCH (22:32)
[2020-09-13] MEDS: ASCORBIC ACID 500 MG TAB PO SCH (22:33)
[2020-09-13] MEDS: MONTELUKAST SODIUM 10 MG TABLET PO SCH (22:33)
[2020-09-13] MEDS: DOCUSATE SODIUM 100 MG CAP PO SCH (22:33)
[2020-09-13] MEDS: AMITRIPTYLINE HCL 10 MG TAB PO SCH (22:34)
[2020-09-13] MEDS: NYSTATIN POWDER 15GM BTL EXT SCH (22:34)
--- NOTE | 2020-09-13 23:29 | Ultrasound Report ---
ULTRASOUND BILATERAL LOWER EXTREMITY VENOUS CLINICAL HISTORY: Lower extremity edema. Recent surgery. COMPARISON STUDY: Bilateral lower extremity venous ultrasound dated 12/20/2015. TECHNIQUE: Real-time, grayscale, and color Doppler sonography of the deep veins of the right and left lower extremity was performed from the inguinal crease to the calf. Compression and augmentation wer e utilized. FINDINGS: There is no sonographic evidence of deep venous thrombosis identified in the right or left lower extremity. The common femoral and superficial femoral veins are patent bilaterally and normally compressible. The left popliteal vein is patent and normally compressible. The greater saphenous vei n and the profunda femoris vein at the junction with the common femoral vein are clear in both legs. The visualized left calf veins are patent. The right popliteal vein and the right calf vessels were n ot visualized due to overlying bandages. IMPRESSION: There is no sonographic evidence of deep venous thrombosis identified in the right or lef t lower extremity. ACT 112: Negative or not required by law. Electronically signed by: Adiel Brantley M.D. 09/13/2020 11:27 PM
[2020-09-13] MEDS: LORazepam 1 MG TAB PO PRN (23:35)
[2020-09-14 02:22] LABS: Basophils # (auto) 0.01 K/uL (0-0.2); Basophils % (auto) 0.1 %; Eosinophils # (auto) 0.15 K/uL (0-0.5); Eosinophils % (auto) 2.2 %; Hematocrit (blood only) 29.2 % (37-47); Hemoglobin 9.2 g/dL (12.0-16.0); Immature Granulocytes # (auto) 0.01 K/uL (0.00-0.02); Immature Granulocytes % (auto) 0.1 %; Lymphocytes % (auto) 16.3 %; Mean Corpuscular Hemoglobin 31.6 pg (25-34); Mean Corpuscular Hgb Conc 31.5 g/dL (32-36); Mean Corpuscular Volume 100.3 fL (80-100); Mean Platelet Volume 10.1 fL (7.4-10.4); Monocytes # (auto) 0.58 K/uL (0.11-0.59); Monocytes % (auto) 8.6 %; Neutrophils # (auto) 4.88 K/uL (1.4-6.5); Neutrophils % (auto) 72.7 %; Platelet Count 192 K/uL (130-400); RDW Standard Deviation 55.1 fL (36.4-46.3); Red Blood Count 2.91 M/uL (4.2-5.4); White Blood Count 6.73 K/uL (4.8-10.8)
[2020-09-14 02:27] LABS: HCO3 VBG 34 mmol/L; Oxygen Saturation VBG < 60.0 %; PCO2 VBG 60 mmHg (38-50); PO2 VBG 31 mmHg; pH VBG 7.37 (7.36-7.41)
[2020-09-14 02:38] LABS: BUN Creatinine Ratio 30.6 (10-20); Calcium 8.4 mg/dl (8.5-10.1); Creatinine Clr Calc Pharmacy 62.6 ml/min; Est GFR (African American) 56.2; Est GFR (Non-African American) 48.5; Magnesium 2.3 mg/dl (1.8-2.4); Potassium 4.6 mmol/L (3.5-5.1)
[2020-09-14 02:46] LABS: Ferritin 80.8 ng/ml (8-388); Troponin I 0.079 ng/ml (0-0.045)
[2020-09-14 03:03] LABS: Folate (Folic Acid) > 20.00 ng/ml (>5.38); Vitamin B12 334 pg/ml (193-986)
[2020-09-14] MEDS: oxyCODONE HCL IR 5 MG TAB (IMMEDIATE RELEASE) PO PRN ×3 (04:41→18:33)
--- NOTE | 2020-09-14 07:54 | Electrocardiogram Report ---
Test Reason : Blood Pressure : / mmHG Vent. Rate : 070 BPM Atrial Rate : 070 BPM P-R Int : 168 ms QRS Dur : 092 ms QT Int : 374 ms P-R-T Axes : 052 050 062 degrees QTc Int : 403 ms Normal sinus rhythm Normal ECG When compared with ECG of 07-AUG-2019 16:51, No significant change was found Confirmed by Ankit Silver ([id number]) on 09/14/2020 7:54:17 AM Referred By: [facility] Confirmed By:Ankit Silver
[2020-09-14] MEDS: DOCUSATE SODIUM 100 MG CAP PO SCH ×2 (08:12→21:13)
[2020-09-14] MEDS: ASCORBIC ACID 500 MG TAB PO SCH ×2 (08:12→21:13)
[2020-09-14] MEDS: FUROSEMIDE 40 MG in SYRINGE 0 ML IV SCH (08:13)
[2020-09-14] MEDS: FLUTICASONE PROPIONATE NA SPR 16 GM BTL PRN (08:13)
[2020-09-14] MEDS: PANTOprazole 40 MG TAB PO SCH (08:14)
[2020-09-14] MEDS: ASPIRIN 81 MG ECTAB PO SCH (08:14)
[2020-09-14] MEDS: MULTIVITAMIN TAB PO SCH (08:15)
[2020-09-14] MEDS: METOPROLOL SUCC 25MG EXT REL TAB PO SCH (08:15)
[2020-09-14] MEDS: FLUTICASONE FUROATE 200MCG 14 PUFFS/INHALER INH SCH (08:15)
[2020-09-14] MEDS: DICLOFENAC SOD 1% GEL 100 GM TUBE EXT SCH ×4 (08:16→21:14)
[2020-09-14] MEDS: UMECLIDINIUM/VILANTEROL 62.5/25MCG 7 PUFFS/INHALER INH SCH (08:16)
[2020-09-14] MEDS: NYSTATIN POWDER 15GM BTL EXT SCH ×2 (08:17→21:14)
[2020-09-14] MEDS: CITALOPRAM 20 MG TAB PO SCH (08:17)
[2020-09-14] MEDS ORDERED: FUROSEMIDE 40 MG/4 ML VIAL IV SCH (09:00)
[2020-09-14] MEDS ORDERED: NON-FORMULARY MEDICATION (Fluticasone-Umeclidin-Vilanter [Trelegy Ellipta] 100-62.5-25 mcg INH SCH (09:00)
[2020-09-14] MEDS ORDERED: FLUTICASONE FUROATE 100MCG 14 PUFFS/INHALER INH SCH (09:00)
[2020-09-14] MEDS: PREGABALIN 150 MG CAP PO SCH ×3 (10:13→21:14)
[2020-09-14] MEDS: cefTRIAXone SODIUM 2,000 MG in DEXTROSE 5% 50 ML IV SCH (10:13)
[2020-09-14] MEDS: POLYETHYLENE (MIRALAX) 17 GM PACK PO SCH (10:13)
[2020-09-14] MEDS: ENOXAPARIN INJ 40 MG/0.4 ML SYR SQ SCH ×2 (10:17→21:14)
--- NOTE | 2020-09-14 10:43 | Pharmacy Report ---
Pharmacy Abx Initial Consult - Date of Service September 14, 2020 - Pharmacy Dosing Scope Date of Consult: 09/13/20 Consultation requested by: Maya Allison Pharmacy is consulted to initiate Vancomycin IV/PO dosing therapy, order appropriate labs and adjust drug dose/frequency. - Subjective The patient is a 70 year old F admitted on 09/13/20 16:19. - Objective Height: 5 ft 6 in Weight: 125.1 kg Vital Signs (Past 12hrs): Vital Signs Temp Pulse Pulse Resp BP Pulse Ox 09/14/20 08:02 37.2 C 76 20 112/48 L 92 09/14/20 07:39 77 09/14/20 04:00 37.1 C 79 18 138/76 94 09/13/20 23:00 36.8 C 70 18 118/69 95 Lab Results (24hrs): Laboratory Tests (24 Hours) 09/14/20 09/14/20 09/13/20 02:07 02:07 14:38 WBC 6.73 Neut # (Auto) 4.88 Creatinine 1.13 1.14 Est Cr Clr Drug Dosing 62.6 62.0 09/13/20 14:38 WBC 6.73 Neut # (Auto) 4.07 Creatinine Est Cr Clr Drug Dosing Micro Results: 09/13/20 18:01 Aerobic Blood Culture - Pending Blood Anaerobic Blood Culture - Pending 09/13/20 18:01 Aerobic Blood Culture - Pending Blood Anaerobic Blood Culture - Pending 09/13/20 14:38 Urine Culture - Pending Urine,Straight Cath - Risk Factors for Resistance * Resident in a snf or extended-care facility * Hospitalization for 48 hours or more within the past 90 days * Antimicrobial use within the last 90 days Vancomycin,Gentamicin,Cefazolin, Ceftriaxone - Assessment & Plan Assessment 70 year old F admitted with altered mental status, dizziness(x ~24hrs), acute UTI, and possible RLE post op wound infection. Right knee is wrapped in surgical dressing. Right knee wound has erythema and drainage. Pt states diffuse weakness throughout entire body Plan Vancomcyin for treatment of possible postop wound infection Vancomycin IV * Estimated PK Parameters: Vd 0.54 L/kg, Aj 0.056 hr-1, t1/2 12.4 hr * Loading dose: 2750 mg (21 mg/kg) * Maintenance dose: 1500 mg IV (11 mg/kg) every 18 hours * Goal trough level ~ 15 * Trough level ordered for 09/16/20 * A less than traditional dose and/or extended dosing interval has/have been selected due to likelihood of drug accumulation in obese patient/patient with h/o CKD. Pharmacy will continue to follow and will adjust dose/frequency as necessary. Thank you.
--- NOTE | 2020-09-14 12:05 | Communication Note ---
Date of Service: September 14, 2020 Neurology has been asked to see Jaky Williamson is a 70-year-old white right- handed woman due to the recent onset of tremulousness and what sounds like myocl onus occurring in the setting of discontinuation of chronic Dilaudid therapy that she been receiving for probably several years on an as-needed basis for pain and replacing it with a codeine preparation every 6 hours for pain. Yesterday she apparently had more violent shaking of her hands in addition to the myoclonus and was brought to the hospital but now she is significantly better with only little bit of myoclonic activity and a minor tremor of the outstretched hands. She was admitted also because of the possibility of cellulitis in the right lower extremity other than the incision site and possible urinary tract infection as she has an indwelling Gonzalez catheter and this would be a difficult diagnosis to make. She had a recent femoral fracture is on DVT prophylaxis has some dizziness, is morbidly obese, was found to have an elevated troponin, has chronic COPD, history of cholecystectomy and hysterectomy has GERD chronic anxiety and history of pulmonary embolism, is a history of lumbar radiculopathy, dyslipidemia depression chronic kidney disease stage III diastolic congestive heart failure, non-ST myocardial infarction, history of SVT, hypertension Medications include acetaminophen amitriptyline 10 mg at bedtime ascorbic acid aspirin Celexa 20 mg daily, diclofenac docusate subcu heparin vitamin D3, fluticasone, Lasix guaifenesin, ipratropium inhaler, lidocaine, lisinopril, lorazepam 1 mg twice a day as needed, metoprolol, Singulair, multivitamins, and a statin, ondansetron, oxycodone 10 mg every 6 hours as needed, pantoprazole, polyethylene glycol, pregabalin 150 mg 3 times a day, protein simvastatin trazodone and as needed oxygen She has no known drug allergies Social history reveals to be currently residing at [facility] for physical therapy following her surgery and a current non-smoker nonconsumer of ethanol Review of systems: The patient's been unremarkable exception of the issues regarding her hip fracture. She denies any recent fever sweats chills but does describe the onset of her twitching and jerking after the Dilaudid was stopped and oxycodone was substituted. Is been no other specific issues referable to head eyes ears nose and throat card cardiovascular pulmonary gastrointestinal genitourinary musculoskeletal or dermatologic systems. Neurologically she does have what sounds like a peripheral neuropathy whose cause has apparently never been established not sure who evaluated that problem On exam she has a blood pressure 109/60 pulse 71 respirations 18 she is afebrile She is awake alert oriented 3 spheres with no recent or remote memory deficits. Cranial nerves are quite intact with normal eye movements facial motion and strength of sensation clear speech. She has a mild tremor of the outstretched hands with no cerebellar dysmetria on finger-nose [id number] testing and periodically she does have what appears to be pretty typical myoclonus of the hands with a sudden jerking movement but claims this is much better than it was and I do not see any movements of the lower extremities of similar type. 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 She may have a mild essential tremor at most At this point things are better and will check an EEG to exclude cortical myoclonus but am not can offer any recommendations other than perhaps an assessment by medical treatment management for pain control and attempt to reduce narcotics even further or to simply go back on the Dilaudid which was effective for pain and was not reducing the myoclonus. Sometimes switching from one narcotic to another within a drug class will help ameliorate the issues We will drop by 1 more time tomorrow to review the EEG and see the patient but at this point I do not think neurology is much more to offer unless of course EEG would be abnormal Dereje Meyer MD
[2020-09-14] MEDS ORDERED: PERFLUTREN LIPID MICROSPHERE (DEFINITY) IV ONE (14:10)
[2020-09-14] MEDS: VANCOMYCIN HCL 1,500 MG in SODIUM CHLORIDE 0.9% 500 ML IV SCH (16:16)
--- NOTE | 2020-09-14 19:26 | Orthopedic Progress Note ---
Date of Service September 14, 2020 Assessment & Plan (1) Right femoral fracture: HD #2, 12 days s/p revision wound and hardware right femur. patient has history non-healing wound. Continue antibiotics. WBAT PT/OT DVT prophylaxis was switched from Lovenox to aspirin this past week. Radiographs look unchanged. Will continue to follow. Continue care per primary service. Admission and Anticipated Discharge Date Admission Date: September 13, 2020 Subjective Leg shakes Physical Exam Physical Exam: RLE: Sensation to light touch unchanged distally. Wiggling toes and ankle. BCR < 2 sec. Calf is soft and non-tender. Lateral incision with Nylon sutures. Minimal surrounding erythema. Unable to expresses and fluid. Dressing with minimal serosanguineous drainage. Results & Data ([facility]) Vital Signs (Past 12 Hours) Vital Signs Temp Pulse Pulse Resp BP Pulse Ox 09/14/20 15:36 70 09/14/20 14:44 37.1 C 69 20 102/50 L 92 09/14/20 11:12 36.9 C 71 18 109/68 92 09/14/20 08:02 37.2 C 76 20 112/48 L 92 09/14/20 07:39 77
[2020-09-14] MEDS: MONTELUKAST SODIUM 10 MG TABLET PO SCH (21:13)
[2020-09-14] MEDS: AMITRIPTYLINE HCL 10 MG TAB PO SCH (21:13)
[2020-09-14] MEDS: SIMVASTATIN 40 MG TAB PO SCH (21:13)
[2020-09-14] MEDS: LORazepam 1 MG TAB PO PRN (21:14)
[2020-09-14] MEDS: traZODone HCL 50 MG TAB PO SCH (21:14)
--- NOTE | 2020-09-14 21:41 | Hospitalist Progress Note ---
Date of Service September 14, 2020 Assessment & Plan (1) Sepsis: sepsis on admission 06/24 CAUTI and/or surgical site infection. resuscitated at this point. Cont braod abx and ongoing investigation. (2) Cellulitis of right lower extremity: concern for surgical site infection. Cont current abx. WBAT per patient. (3) Post-operative state: Right periprosthetic femoral fracture status post ORIF and IM nail in [place] 06/2020 Patient with loosened screw and non wound healing requiring wound and hardware revision on 09/[address] Tobar Now with increased redness and warmth to incision Consult orthopedics PT/OT ordered. (4) Cellulitis of right lower extremity: cont current abx-ID consult after the weekend. (5) Acute on chronic diastolic CHF (congestive heart failure): Lasix given IV with improvement. Cont for now. (6) Catheter-associated urinary tract infection: Cont Vanc and ceftriaxone pending culture results. TOV soon when she is moving better. 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 Myoclonus has improved since admission. Per neurology input, an EEG will be performed. (8) Elevated troponin: Chronically elevated in past No chest pain or shortness of breath, EKG without ST change Repeat troponin Possibly in setting of mild CHF (9) Hypertension: Blood pressure on lower side on admission Continue metoprolol, hold lisinopril (10) CKD (chronic kidney disease) stage 3, GFR 30-59 ml/min: around baseline. (11) COPD (chronic obstructive pulmonary disease): Chronic hypoxic respiratory failure on 2 L of O2 No acute exacerbation Continue Trelegy, as needed nebs (12) Anxiety: (13) Depression: Depression with anxiety Continue home medications. Patient states that she has been on Ativan for many years (14) Anemia: H&H 9.0 and 29.0 Prior to 2 recent procedures hemoglobin was 13.5 on 07/13/2020 so this is likely related to expected post-surgical blood loss. Obtain anemia panel in a.m. (15) Morbid obesity: BMI 46.7 Encourage lifestyle and diet modifications (16) DVT prophylaxis: SQ Lovenox twice daily secondary to weight Dispo: Medical telemetry DNR/DNI Maribell Montanez DO [facility] Hospitalist Admission and Anticipated Discharge Date Admission Date: September 13, 2020 Subjective 70-year-old female admitted for weakness pain in her right lower extremity status post surgery for right femoral fracture, now with superficial wound infection at operative site, in addition to urinary tract infection. On 07/13 she sustained a fall and had a supracondylar periprosthetic femur fracture. She was sent to [place] for eval and trt and received an intramedullary poncho and a lateral plate and screws. That was late Jun/early July. She was recovering at [facility] and reported pain in the left knee. There was no pain or fevers but she was started on Keflex out of concern for possible infection on August 19. She continued on Lovenox and aspirin, and pain was not improved. The knee was hot and swollen so she was sent to Dr. Tobar and manuel a right femur wound revision with hardware revision on the right. She was discharged on 09/03 back to [facility], however, she began having dizziness, myoclonus (after switching narcotic therapy), and generalized weakness. UA was positive but this was drawn from an indwelling hernandez catheter. The catheter was exchanged in the ER. A new urine culture was requested off the new catheter but not performed. She denied worsening pain in her right knee, however, her incision site appeared erythematous and possibly consistent with a superficial infection. There was some ?purulent drainage present on admission. She was placed on Rocephin and Vancomycin with improvement. She was also given lasix for pulmonary congestion with improvement in breathing. Patient states that she is confused and the infection she has has her confused She is answering all questions appropriately She does report pain in her wound today Tolerating p.o. Afebrile Mild clonus has improved, per neurology note Review of Systems Review of Systems: All systems reviewed & are unremarkable except as noted in Subjective Physical Exam Physical Exam: CONSTITUTIONAL: obese, vitals as above, generally ill- appearing EYES: normal conjunctivae, no scleral icterus ENT: external ear and nose normal, MMM RESPIRATORY: Clear to auscultation throughout except for at the left lower base where she has wheezing present CARDIOVASCULAR: regular rate and rhythm, S1 and 2 heard without murmurs, gallops or rubs, no JVD, no peripheral edema GASTROINTESTINAL: soft, nontender, nondistended, no guarding MUSCULOSKELETAL: Generalized weakness, right lower extremity that is covered with surgical dressing. Wound includes sutures that are intact with surrounding erythema and some opening of the incision no clear drainage is present. Patient has minimal movement in her legs, and reports being scared to move or bear weight. SKIN: warm and dry, incision site as above NEUROLOGIC: CN 2-12 grossly intact, no sensory deficit, normal cognition, normal speech, myoclonus is not noted on exam today. PSYCHIATRIC: alert cooperative and oriented to person, place and time. Results & Data Results & Data ([facility]) Vital Signs (Past 12 Hours) Vital Signs Temp Pulse Pulse Pulse Resp BP Pulse Ox 09/14/20 19:51 36.9 C 71 20 119/57 L 92 09/14/20 15:36 70 09/14/20 14:44 37.1 C 69 20 102/50 L 92 09/14/20 11:12 36.9 C 71 18 109/68 92 Laboratory Results Short CBC 09/14/20 Range/Units 02:07 WBC 6.73 (4.8-10.8) K/uL Hgb 9.2 L (12.0-16.0) g/dL Hct 29.2 L (37-47) % Plt Count 192 (130-400) K/uL BMP 09/14/20 02:07 Sodium 136 Potassium 4.6 Chloride 101 Carbon Dioxide 35 H BUN 35 H Creatinine 1.13 Glucose 114 H Calcium 8.4 L Cardiac Enzymes 09/14/20 Range/Units 02:07 Troponin I 0.079 H* (0-0.045) ng/ml Medications Administered Current Inpatient Medications Acetaminophen (Acetaminophen 325 Mg Tab) 650 mg PO Q4H PRN PRN Reason: Pain or Fever Stop: 10/13/20 20:09 Al Hydrox/Mg Hydrox/Simethicone (Aluminum/Magnesium Susp 30 Ml Udc) 15 ml PO Q4H PRN PRN Reason: Dyspepsia Stop: 10/13/20 20:09 Albuterol (Albut/Ipratrop 3mg/0.5mg Neb 3 Ml Vial) 3 ml INH Q4H PRN PRN Reason: Shortness Of Breath Or Wheezing Stop: 10/13/20 20:09 Amitriptyline HCl (Amitriptyline Hcl 10 Mg Tab) 10 mg PO HS ROBERT Stop: 10/13/20 20:59 Last Admin: 09/14/20 21:13 Dose: 10 mg Documented by: Ascorbic Acid (Ascorbic Acid 500 Mg Tab) 500 mg PO BID [facility] Stop: 10/13/20 20:59 Last Admin: 09/14/20 21:13 Dose: 500 mg Documented by: Aspirin (Aspirin 81 Mg Ectab) 81 mg PO QAM [facility] Stop: 10/14/20 08:59 Last Admin: 09/14/20 08:14 Dose: 81 mg Documented by: Citalopram Hydrobromide (Citalopram 20 Mg Tab) 10 mg PO QAM [facility] Stop: 10/14/20 08:59 Last Admin: 09/14/20 08:17 Dose: 10 mg Documented by: Diclofenac Sodium (Diclofenac Sod 1% Gel 100 Gm Tube) 2 gm EXT QID [facility] Stop: 10/13/20 20:09 Last Admin: 09/14/20 21:14 Dose: Not Given Documented by: Docusate Sodium (Docusate Sodium 100 Mg Cap) 100 mg PO BID [facility] Stop: 10/13/20 20:59 Last Admin: 09/14/20 21:13 Dose: 100 mg Documented by: Enoxaparin Sodium (Enoxaparin Inj 40 Mg/0.4 Ml Syr) 40 mg SQ Q12H [facility] Stop: 10/13/20 21:59 Last Admin: 09/14/20 21:14 Dose: 40 mg Documented by: Ergocalciferol (Ergocalciferol 50,000 Units 1250 Mcg Cap) 50,000 units PO Mo @0900 [facility] Stop: 10/15/20 08:59 Fluticasone Furoate (Fluticasone Furoate 200mcg 14 Puffs/Inhaler) 1 puffs INH DAILY [facility]; Protocol Stop: 10/14/20 08:59 Last Admin: 09/14/20 08:15 Dose: 1 puffs Documented by: Fluticasone Propionate (Fluticasone Propionate Na Spr 16 Gm Btl) 2 sprays NA DAILY PRN PRN Reason: Allergy Symptoms Stop: 10/13/20 20:09 Last Admin: 09/14/20 08:13 Dose: 2 sprays Documented by: Ceftriaxone Sodium 2,000 mg/ (Dextrose) 50 mls @ 100 mls/hr IV Q24H [facility]; Protocol Stop: 09/19/20 08:59 Last Infusion: 09/14/20 10:43 Dose: Infused Documented by: Furosemide 40 mg/ Syringe 4 mls @ 4 mls/min IV DAILY ROBERT Stop: 10/14/20 08:59 Last Admin: 09/14/20 08:13 Dose: 4 mls/min Documented by: Vancomycin HCl 1,500 mg/ (Sodium Chloride) 530 mls @ 200 mls/hr IV Q18H ROBERT Stop: 09/21/20 14:59 Last Infusion: 09/14/20 19:40 Dose: Infused Documented by: Lorazepam (Lorazepam 1 Mg Tab) 1 mg PO BID PRN PRN Reason: Anxiety Stop: 10/13/20 20:42 Last Admin: 09/14/20 21:14 Dose: 1 mg Documented by: Magnesium Hydroxide (Magnesium Hydroxide Susp 30 Ml Udc) 30 ml PO Q12H PRN PRN Reason: Constipation Stop: 10/13/20 20:09 Metoprolol Succinate (Metoprolol Succ 25mg Ext Rel Tab) 25 mg PO QAM [facility] Stop: 10/14/20 08:59 Last Admin: 09/14/20 08:15 Dose: 25 mg Documented by: Miscellaneous Information (Vancomycin Consult Active) 1 ea N/A UD PRN PRN Reason: Consult Stop: 10/13/20 20:09 Montelukast Sodium (Montelukast Sodium 10 Mg Tablet) 10 mg PO HS [facility] Stop: 10/13/20 20:59 Last Admin: 09/14/20 21:13 Dose: 10 mg Documented by: Multivitamins (Multivitamin Tab) 1 tab PO QAM [facility] Stop: 10/14/20 08:59 Last Admin: 09/14/20 08:15 Dose: 1 tab Documented by: Nystatin (Nystatin Powder 15gm Btl) 1 appln EXT BID [facility] Stop: 10/13/20 20:59 Last Admin: 09/14/20 21:14 Dose: 1 appln Documented by: Ondansetron HCl (Ondansetron Inj 2 Mg/Ml 2 Ml Vial) 4 mg IV Q6H PRN PRN Reason: Nausea Stop: 10/13/20 20:09 Oxycodone HCl (Oxycodone Hcl Ir 5 Mg Tab (Immediate Release)) 5 mg PO Q6H PRN PRN Reason: pain Stop: 09/27/20 20:42 Last Admin: 09/14/20 18:33 Dose: 5 mg Documented by: Pantoprazole Sodium (Pantoprazole 40 Mg Tab) 40 mg PO QAM [facility] Stop: 10/14/20 08:59 Last Admin: 09/14/20 08:14 Dose: 40 mg Documented by: Polyethylene Glycol (Polyethylene (Miralax) 17 Gm Pack) 17 gm PO DAILY PRN PRN Reason: Constipation Stop: 10/13/20 20:09 Polyethylene Glycol (Polyethylene (Miralax) 17 Gm Pack) 17 gm PO QAM [facility] Stop: 10/14/20 08:59 Last Admin: 09/14/20 10:13 Dose: Not Given Documented by: Pregabalin (Pregabalin 150 Mg Cap) 150 mg PO TID [facility] Stop: 10/13/20 20:59 Last Admin: 09/14/20 21:14 Dose: 150 mg Documented by: Simvastatin (Simvastatin 40 Mg Tab) 40 mg PO HS [facility] Stop: 10/13/20 20:59 Last Admin: 09/14/20 21:13 Dose: 40 mg Documented by: Trazodone HCl (Trazodone Hcl 50 Mg Tab) 50 mg PO HS [facility] Stop: 10/13/20 20:59 Last Admin: 09/14/20 21:14 Dose: 50 mg Documented by: Umeclidinium/Vilanterol (Umeclidinium/Vilanterol 62.5/25mcg 7 Puffs/Inhaler) 1 puffs INH DAILY [facility]; Protocol Stop: 10/14/20 08:59 Last Admin: 09/14/20 08:16 Dose: 1 puffs Documented by: (1) COPD (chronic obstructive pulmonary disease) COPD type: unspecified COPD Qualified Code(s): J44.9 - Chronic obstructive pulmonary disease, unspecified
[2020-09-15] MEDS: FLUTICASONE FUROATE 200MCG 14 PUFFS/INHALER INH SCH (08:58)
[2020-09-15] MEDS: FLUTICASONE PROPIONATE NA SPR 16 GM BTL PRN (08:58)
[2020-09-15] MEDS: UMECLIDINIUM/VILANTEROL 62.5/25MCG 7 PUFFS/INHALER INH SCH (08:58)
[2020-09-15] MEDS: NYSTATIN POWDER 15GM BTL EXT SCH ×2 (08:58→20:42)
[2020-09-15] MEDS: DICLOFENAC SOD 1% GEL 100 GM TUBE EXT SCH ×4 (08:59→20:43)
[2020-09-15] MEDS: ENOXAPARIN INJ 40 MG/0.4 ML SYR SQ SCH ×2 (08:59→20:42)
[2020-09-15] MEDS: ASCORBIC ACID 500 MG TAB PO SCH ×2 (08:59→20:41)
[2020-09-15] MEDS: DOCUSATE SODIUM 100 MG CAP PO SCH ×2 (08:59→20:41)
[2020-09-15] MEDS: oxyCODONE HCL IR 5 MG TAB (IMMEDIATE RELEASE) PO PRN ×3 (09:00→20:41)
[2020-09-15] MEDS ORDERED: ERGOCALCIFEROL 50,000 UNITS 1250 MCG CAP PO SCH (09:00)
[2020-09-15] MEDS: PREGABALIN 150 MG CAP PO SCH ×3 (09:01→20:41)
[2020-09-15] MEDS: POLYETHYLENE (MIRALAX) 17 GM PACK PO SCH (09:01)
[2020-09-15] MEDS: VANCOMYCIN HCL 1,500 MG in SODIUM CHLORIDE 0.9% 500 ML IV SCH (09:11)
[2020-09-15] MEDS: LORazepam 1 MG TAB PO PRN ×2 (09:11→22:07)
[2020-09-15] MEDS: CITALOPRAM 20 MG TAB PO SCH (09:18)
[2020-09-15] MEDS: METOPROLOL SUCC 25MG EXT REL TAB PO SCH (09:18)
[2020-09-15] MEDS: PANTOprazole 40 MG TAB PO SCH (09:19)
[2020-09-15] MEDS: ASPIRIN 81 MG ECTAB PO SCH (09:19)
[2020-09-15] MEDS: FUROSEMIDE 40 MG in SYRINGE 0 ML IV SCH (09:19)
[2020-09-15] MEDS: MULTIVITAMIN TAB PO SCH (09:19)
[2020-09-15] MEDS: cefTRIAXone SODIUM 2,000 MG in DEXTROSE 5% 50 ML IV SCH (09:52)
[2020-09-15] MEDS: CEFEPIME 2,000 MG in SYRINGE 0 ML IV SCH (12:56)
--- NOTE | 2020-09-15 14:07 | Orthopedic Progress Note ---
Date of Service September 15, 2020 Assessment & Plan (1) Right femoral fracture: HD #3, 13 days s/p revision wound and hardware right femur. patient has history non-healing wound. Continue antibiotics. WBAT PT/OT DVT prophylaxis was switched from Lovenox to aspirin this past week. Radiographs look unchanged. Will continue to follow, Dr. Tobar is back tomorrow. Continue care per primary service. Admission and Anticipated Discharge Date Admission Date: September 14, 2020 Subjective Worried if she needs more surgery Physical Exam Physical Exam: RLE: Sensation to light touch unchanged distally. Wiggling toes and ankle. BCR < 2 sec. Calf is soft and non-tender. Lateral incision with Nylon sutures. Minimal surrounding erythema. Unable to expresses and fluid. No drainage. Results & Data ([facility]) Vital Signs (Past 12 Hours) Vital Signs Temp Pulse Resp BP Pulse Ox 09/15/20 11:40 36.7 C 73 20 121/57 L 94 09/15/20 07:48 36.8 C 79 20 150/63 H 90 09/15/20 03:23 36.7 C 73 18 127/61 95
--- NOTE | 2020-09-15 14:59 | Electroencephalogram ---
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 cortical Home Medication List Medication Instructions Recorded Confirmed Type docusate sodium [Stool Softener] 100 mg PO BID 10/07/18 09/13/20 History ergocalciferol (vitamin D2) 50,000 unit PO WK 10/07/18 09/13/20 History [Vitamin D2] fluticasone propionate [Flonase 2 spray INTRANASAL DAILY PRN 10/07/18 09/13/20 History Allergy Relief] furosemide [Lasix] 20 mg PO QAM 10/07/18 09/13/20 History lisinopril [Zestril] 5 mg PO QAM 10/07/18 09/13/20 History montelukast [Singulair] 10 mg PO HS 10/07/18 09/13/20 History pantoprazole [Protonix] 40 mg PO QAM 10/07/18 09/13/20 History simvastatin [Zocor] 40 mg PO HS 10/07/18 09/13/20 History trazodone 50 mg PO HS 10/07/18 09/13/20 History Oxygen Home #1 ea 10/10/18 08/27/20 Rx metoprolol succinate [Toprol XL] 25 mg PO QAM 04/30/19 09/13/20 History aspirin 81 mg PO QAM 06/14/19 09/13/20 History ipratropium-albuterol 3 ml INHALATION Q4H PRN 06/14/19 09/13/20 History lorazepam [Ativan] 1 mg PO BID PRN 07/13/20 09/13/20 History ascorbic acid (vitamin C) 500 mg 500 mg PO BID 08/27/20 09/13/20 History tablet citalopram 20 mg tablet 10 mg PO QAM tab 08/27/20 09/13/20 History enoxaparin 40 mg/0.4 mL 40 mg SUBCUT QAM 08/27/20 09/13/20 History subcutaneous syringe guaifenesin 100 mg/5 mL oral liquid 100 mg PO Q4H PRN ml 08/27/20 09/13/20 History lidocaine 5 % topical patch 1 patch TOPICAL BID 08/27/20 09/13/20 History nystatin 100,000 unit/gram topical 1 applic TOPICAL BID 08/27/20 09/13/20 Hist ory powder pregabalin 100 mg capsule 150 mg PO TID 08/27/20 09/13/20 History protein supplement 30 ea PO DAILY ml 08/27/20 09/13/20 History amitriptyline 10 mg PO HS 09/01/20 09/13/20 History multivitamin 1 tab PO QAM 09/01/20 09/13/20 History polyethylene glycol 3350 [Miralax] 17 g PO QAM 09/01/20 09/13/20 History acetaminophen 1,000 mg PO Q8 PRN #30 tab 09/03/20 09/13/20 Rx diclofenac sodium [Voltaren] 2 g TOPICAL QID 09/13/20 09/13/20 History arcmrourbpl-qekdytncg-nmalarii 1 inh INHALATION QAM 09/13/20 09/13/20 History [Trelegy Ellipta] ondansetron HCl 4 mg PO Q6H PRN 09/13/20 09/13/20 History oxycodone 10 mg PO Q6H PRN 09/13/20 09/13/20 History Inpatient Medication List Amitriptyline HCl (Amitriptyline Hcl 10 Mg Tab) 10 mg PO HS [facility] Stop: 10/13/20 20:59 Last Admin: 09/14/20 21:13 Dose: 10 mg Documented by: [id number] Admin: 09/13/20 22:34 Dose: 10 mg Documented by: [id number] Ascorbic Acid (Ascorbic Acid 500 Mg Tab) 500 mg PO BID ROBERT Stop: 10/13/20 20:59 Last Admin: 09/15/20 08:59 Dose: 500 mg Documented by: [id number] Admin: 09/14/20 21:13 Dose: 500 mg Documented by: [id number] Admin: 09/14/20 08:12 Dose: 500 mg Documented by: [id number] Admin: 09/13/20 22:33 Dose: 500 mg Documented by: [id number] Aspirin (Aspirin 81 Mg Ectab) 81 mg PO QAM ROBERT Stop: 10/14/20 08:59 Last Admin: 09/15/20 09:19 Dose: 81 mg Documented by: [id number] Admin: 09/14/20 08:14 Dose: 81 mg Documented by: [id number] Citalopram Hydrobromide (Citalopram 20 Mg Tab) 10 mg PO QAM ROBERT Stop: 10/14/20 08:59 Last Admin: 09/15/20 09:18 Dose: 10 mg Documented by: [id number] Admin: 09/14/20 08:17 Dose: 10 mg Documented by: [id number] Diclofenac Sodium (Diclofenac Sod 1% Gel 100 Gm Tube) 2 gm EXT QID ROBERT Stop: 10/13/20 20:09 Last Admin: 09/15/20 12:56 Dose: 2 gm Documented by: [id number] Admin: 09/15/20 08:59 Dose: 2 gm Documented by: [id number] Admin: 09/14/20 21:14 Dose: Not Given Documented by: [id number] Admin: 09/14/20 18:32 Dose: 2 gm Documented by: [id number] Admin: 09/14/20 16:16 Dose: 2 gm Documented by: [id number] Admin: 09/14/20 08:16 Dose: 2 gm Documented by: [id number] Admin: 09/13/20 22:34 Dose: Not Given Documented by: [id number] Admin: 09/13/20 22:30 Dose: Not Given Documented by: [id number] Docusate Sodium (Docusate Sodium 100 Mg Cap) 100 mg PO BID ROBERT Stop: 10/13/20 20:59 Last Admin: 09/15/20 08:59 Dose: 100 mg Documented by: [id number] Admin: 09/14/20 21:13 Dose: 100 mg Documented by: [id number] Admin: 09/14/20 08:12 Dose: 100 mg Documented by: [id number] Admin: 09/13/20 22:33 Dose: 100 mg Documented by: [id number] Enoxaparin Sodium (Enoxaparin Inj 40 Mg/0.4 Ml Syr) 40 mg SQ Q12H ROBERT Stop: 10/13/20 21:59 Last Admin: 09/15/20 08:59 Dose: 40 mg Documented by: [id number] Admin: 09/14/20 21:14 Dose: 40 mg Documented by: [id number] Admin: 09/14/20 10:17 Dose: 40 mg Documented by: [id number] Admin: 09/13/20 22:31 Dose: 40 mg Documented by: [id number] Ergocalciferol (Ergocalciferol 50,000 Units 1250 Mcg Cap) 50,000 units PO Mo@0900 [facility] Stop: 10/15/20 08:59 Last Admin: 09/15/20 09:18 Dose: 50,000 units Documented by: [id number] Fluticasone Furoate (Fluticasone Furoate 200mcg 14 Puffs/Inhaler) 1 puffs INH DAILY [facility]; Protocol Stop: 10/14/20 08:59 Last Admin: 09/15/20 08:58 Dose: 1 puffs Documented by: [id number] Admin: 09/14/20 08:15 Dose: 1 puffs Documented by: [id number] Fluticasone Propionate (Fluticasone Propionate Na Spr 16 Gm Btl) 2 sprays NA DAILY PRN PRN Reason: Allergy Symptoms Stop: 10/13/20 20:09 Last Admin: 09/15/20 08:58 Dose: 2 sprays Documented by: [id number] Admin: 09/14/20 08:13 Dose: 2 sprays Documented by: [id number] Vancomycin HCl 1,500 mg/ (Sodium Chloride) 530 mls @ 200 mls/hr IV Q18H [facility] Stop: 09/21/20 14:59 Last Infusion: 09/15/20 11:41 Dose: 0 mls/hr Documented by: [id number] Admin: 09/15/20 09:11 Dose: 200 mls/hr Documented by: [id number] Infusion: 09/14/20 19:40 Dose: 0 mls/hr Documented by: [id number] Admin: 09/14/20 16:16 Dose: 200 mls/hr Documented by: [id number] Cefepime HCl 2,000 mg/ Syringe 20 mls @ 5 mls/min IV Q12H [facility] Stop: 09/25/20 11:59 Last Admin: 09/15/20 12:56 Dose: 5 mls/min Documented by: [id number] Lorazepam (Lorazepam 1 Mg Tab) 1 mg PO BID PRN PRN Reason: Anxiety Stop: 10/13/20 20:42 Last Admin: 09/15/20 09:11 Dose: 1 mg Documented by: [id number] Admin: 09/14/20 21:14 Dose: 1 mg Documented by: [id number] Admin: 09/13/20 23:35 Dose: 1 mg Documented by: [id number] Metoprolol Succinate (Metoprolol Succ 25mg Ext Rel Tab) 25 mg PO QAM [facility] Stop: 10/14/20 08:59 Last Admin: 09/15/20 09:18 Dose: 25 mg Documented by: [id number] Admin: 09/14/20 08:15 Dose: 25 mg Documented by: [id number] Montelukast Sodium (Montelukast Sodium 10 Mg Tablet) 10 mg PO HS [facility] Stop: 10/13/20 20:59 Last Admin: 09/14/20 21:13 Dose: 10 mg Documented by: [id number] Admin: 09/13/20 22:33 Dose: 10 mg Documented by: [id number] Multivitamins (Multivitamin Tab) 1 tab PO QAM [facility] Stop: 10/14/20 08:59 Last Admin: 09/15/20 09:19 Dose: 1 tab Documented by: [id number] Admin: 09/14/20 08:15 Dose: 1 tab Documented by: [id number] Nystatin (Nystatin Powder 15gm Btl) 1 appln EXT BID [facility] Stop: 10/13/20 20:59 Last Admin: 09/15/20 08:58 Dose: 1 appln Documented by: [id number] Admin: 09/14/20 21:14 Dose: 1 appln Documented by: [id number] Admin: 09/14/20 08:17 Dose: 1 appln Documented by: [id number] Admin: 09/13/20 22:34 Dose: 1 appln Documented by: [id number] Oxycodone HCl (Oxycodone Hcl Ir 5 Mg Tab (Immediate Release)) 5 mg PO Q6H PRN PRN Reason: pain Stop: 09/27/20 20:42 Last Admin: 09/15/20 14:17 Dose: 5 mg Documented by: [id number] Admin: 09/15/20 09:00 Dose: 5 mg Documented by: [id number] Admin: 09/14/20 18:33 Dose: 5 mg Documented by: [id number] Admin: 09/14/20 10:16 Dose: 5 mg Documented by: [id number] Admin: 09/14/20 04:41 Dose: 5 mg Documented by: [id number] Pantoprazole Sodium (Pantoprazole 40 Mg Tab) 40 mg PO QAM [facility] Stop: 10/14/20 08:59 Last Admin: 09/15/20 09:19 Dose: 40 mg Documented by: [id number] Admin: 09/14/20 08:14 Dose: 40 mg Documented by: [id number] Polyethylene Glycol (Polyethylene (Miralax) 17 Gm Pack) 17 gm PO QAM ROBERT Stop: 10/14/20 08:59 Last Admin: 09/15/20 09:01 Dose: Not Given Documented by: [id number] Admin: 09/14/20 10:13 Dose: Not Given Documented by: [id number] Pregabalin (Pregabalin 150 Mg Cap) 150 mg PO TID ROBERT Stop: 10/13/20 20:59 Last Admin: 09/15/20 14:18 Dose: 150 mg Documented by: [id number] Admin: 09/15/20 09:01 Dose: 150 mg Documented by: [id number] Admin: 09/14/20 21:14 Dose: 150 mg Documented by: [id number] Admin: 09/14/20 16:16 Dose: 150 mg Documented by: [id number] Admin: 09/14/20 10:13 Dose: 150 mg Documented by: [id number] Admin: 09/13/20 22:32 Dose: 150 mg Documented by: [id number] Simvastatin (Simvastatin 40 Mg Tab) 40 mg PO HS [facility] Stop: 10/13/20 20:59 Last Admin: 09/14/20 21:13 Dose: 40 mg Documented by: [id number] Admin: 09/13/20 22:32 Dose: 40 mg Documented by: [id number] Trazodone HCl (Trazodone Hcl 50 Mg Tab) 50 mg PO [facility] Stop: 10/13/20 20:59 Last Admin: 09/14/20 21:14 Dose: 50 mg Documented by: [id number] Admin: 09/13/20 22:32 Dose: 50 mg Documented by: [id number] Umeclidinium/Vilanterol (Umeclidinium/Vilanterol 62.5/25mcg 7 Puffs/Inhaler) 1 puffs INH DAILY ROBERT; Protocol Stop: 10/14/20 08:59 Last Admin: 09/15/20 08:58 Dose: 1 puffs Documented by: [id number] Admin: 09/14/20 08:16 Dose: 1 puffs Documented by: [id number] Discontinued Medications Furosemide (Furosemide 40 Mg/4 Ml Vial) 20 mg IV NOW STA Stop: 09/13/20 17:21 Last Admin: 09/13/20 17:44 Dose: 20 mg Documented by: [id number] Ceftriaxone Sodium (Rocephin) 1,000 mg in 50 mls @ 100 mls/hr IV NOW STA Stop: 09/13/20 16:11 Last Infusion: 09/13/20 16:28 Dose: 0 mls/hr Documented by: [id number] Admin: 09/13/20 16:11 Dose: 100 mls/hr Documented by: [id number] Ceftriaxone Sodium 2,000 mg/ (Dextrose) 50 mls @ 100 mls/hr IV Q24H ROBERT; Protocol Stop: 09/19/20 08:59 Last Admin: 09/15/20 09:52 Dose: Not Given Documented by: [id number] Infusion: 09/14/20 10:43 Dose: 0 mls/hr Documented by: [id number] Admin: 09/14/20 10:13 Dose: 100 mls/hr Documented by: [id number] Vancomycin HCl 2,750 mg/ (Sodium Chloride) 555 mls @ 200 mls/hr IV NOW ONE Stop: 09/13/20 23:46 Last Infusion: 09/14/20 00:55 Dose: 0 mls/hr Documented by: [id number] Admin: 09/13/20 22:04 Dose: 200 mls/hr Documented by: [id number] Furosemide 40 mg/ Syringe 4 mls @ 4 mls/min IV DAILY ROBERT Stop: 10/14/20 08:59 Last Admin: 09/15/20 09:19 Dose: 4 mls/min Documented by: [id number] Admin: 09/14/20 08:13 Dose: 4 mls/min Documented by: [id number] Perflutren Lipid Microsphere (Perflutren Lipid Microsphere (Definity)) 2 ml IV ONCE ONE Stop: 09/14/20 14:11 Last Admin: 09/14/20 14:11 Dose: 2 ml Documented by: [id number] Description This is a 21 electrode EEG with a single channel dedicated to limited EKG. The electrodes were placed in accordance with the International 10-20 system. Recurrent EEG was done as a bedside recording and is of excellent technical quality with few or no muscle movement artifacts. Video analysis of patient movement behavior was obtained. Photic stimulation was performed. Drowsiness and light sleep not recorded. Under these conditions there is evidence for a moderately well-developed background rhythm in the alpha range of up to 9 Hz maximal frequency and of up to 10 to 15 V maximal amplitude which is maximum posterior head regions bilaterally symmetrical. Polymorphic mid to lower frequency modest voltage theta activity seen in a symmetrical fashion in the central regions. Beta activity seen bifrontally. Photic stimulus provokes minimal driving response. No photoparoxysmal photo myogenic components are noted. . No epileptiform discharges are seen and are specifically no evidence for discharges typical of cortically originating myoclonus nor is or any evidence for abnormal motor activity seen on the simultaneous video recording Interpretation Is a normal EEG during wakefulness Clinical Correlation The current EEG is normal revealing no evidence for focal or generalized slowing of background activity and no evidence for the clinically suspected cortical myoclonus or other potentially epileptic activity Dereje Meyer MD
--- NOTE | 2020-09-15 15:48 | Neurology Progress Note ---
Date of Service September 15, 2020 Assessment & Plan (1) UTI (urinary tract infection): 1. treat to culture Present on Admission?: Yes (2) Sepsis: 1. continue to treat with antibiotic therapy Present on Admission?: Yes (3) Cellulitis of right lower extremity: 1. MRSA - treat to culture and sensitivity Present on Admission?: Yes (4) Jerkin. jerking has resolved 2. EEG- no seizures or seizure focus will sign off for now will be available for questions concerns no follow up needed with neurology Present on Admission?: Yes Admission and Anticipated Discharge Date Admission Date: September 14, 2020 Supervising Physician Co-Signing Physician Notes I have seen and discussed above patient with Dr Dereje Meyer, neurology Jaky is much better today. I see virtually no tremor and certainly no myoclonus. She continues to get relatively low-dose oxycodone and has grown out MRSA is now receiving antibiotics and overall feels much better. She does have the neuropathy clinically but little or no pain due to that Her EEG is normal revealing no evidence for cortical myoclonic activity or indeed any other paroxysmal abnormalities She tolerated Dilaudid for a long time without inducing myoclonus and now is back on her codeine without having any myoclonus so while this might have had a basis in opiate induced myoclonic activity I think the other cofactor required was a systemic illness which in this case was MRSA and the fact that it is being treated effectively now may be the largest reason her myoclonus is resolved Neurology is going to sign off the case we do not see her regularly in follow-up and I do not think we need to post hospitalization and what I can offer any treatment of the myoclonus that seems to resolve spontaneously and whenever element of essential tremor that may emerged also requires no treatment Dereje Meyer MD Subjective Jaky is a 70 year old female with PMH severe COPD on chronic 2 L of O2, chronic diastolic CHF, moderate aortic stenosis, HTN, HLD, depression with anxiety, chronic narcotic use, history of PE, morbid obesity, CKD stage III who presents ED secondary to dizziness and shaking x1 day. She resides at [facility] for acute rehab. She [place] [facility] [place] to mechanical fall at home and sustained a right femur fracture requiring transfer to [place]. In June she underwent ORIF and right IM nail, I&D by Dr. Kaba. She went to [facility] and then later [facility]. she has delayed wound healing and loosened screw and had to undergo wound revision and hardware revision by Dr. David Mills on 09/02. She then returned back to [facility] for further rehab. Was ill feeling for 2 days, decreased appetite, upper extremity shaking and tremor and dizziness, "like things are spinning. She had increased lower ex tremity swelling over the past week. On 09/03 her chronic Dilaudid had been discontinued. She was taking 1 mg every 4 hours as needed. This was switched to oxycodone 5 or 10 mg every 6 hours as needed for pain. Her urinalysis was consistent with possible infection but she does have chronic Gonzalez catheter in place. She was treated empirically with IV Rocephin. She had an EEG which showed no seizure activity. she feels she is back to her baseline and wants to go back to rehab to work on getting back home. denies CP, SOB, abdominal pain, N, V. Review of Systems Review of Systems: All systems reviewed & are unremarkable except as noted in HPI & below Physical Exam Physical Exam: Physical Exam: Constitutional: appearance nourished, obese Ears, Nose, Mouth and Throat: mucous membranes moist, no injection and skin normal, eyes normal Cardiovascular: normal S-1 and S-2 and regular rate and rhythm Respiratory: course breath sounds Musculoskeletal: 2++ peripheral edema Skin: left leg erythema Eyes: extraocular muscles intact (EOMI) and pupils equal, round and reactive to light (PERRL) NEUROLOGIC EXAMINATION: Mental status: Alert and interactive Oriented to [facility], 2020 Oriented to person Speech fluent with no evidence of aphasia Cranial Nerves smile eye brow raise Sensory: decrease LE light cool touch Coordination: finger to nose Gait/Stance: Posture normal. Gait not assessed Motor: Negative for pronator drift of out stretched arms with eyes closed. 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
[2020-09-15] MEDS: ACETAMINOPHEN 325 MG TAB PO PRN (16:41)
--- NOTE | 2020-09-15 18:20 | Hospitalist Progress Note ---
Date of Service September 15, 2020 Assessment & Plan (1) Sepsis: sepsis on admission 06/24 CAUTI and/or surgical site infection. resuscitated at this point. Cont broad abx and ongoing investigation. TOV in am is ok wtih the patient. (2) Cellulitis of right lower extremity: concern for surgical site infection. Cont current abx. WBAT per patient. Ortho consulted-awaiting recs. (3) Post-operative state: Right periprosthetic femoral fracture status post ORIF and IM nail in [place] 06/2020 Patient with loosened screw and non wound healing requiring wound and hardware revision on 09/[address] Tobar Now with increased redness and warmth to incision Consult orthopedics PT/OT ordered. (4) Acute on chronic diastolic CHF (congestive heart failure): Lasix given IV with improvement. Improved and at baseline oxygen needs with h/o COPD. She will switch to oral home Lasix in am. (5) Catheter-associated urinary tract infection: Cont Vanc and ceftriaxone pending culture results. TOV soon when she is moving better. (6) Myoclonus: Recent change in narcotic therapy from dilaudid to oxycodone with a questionable decrease in Ativan at the facility. Myoclonus has improved since admission. Per neurology input, an EEG will be performed. (7) Elevated troponin: Chronically elevated in past No chest pain or shortness of breath, EKG without ST change Repeat troponin Possibly in setting of mild CHF (8) Hypertension: Blood pressure on lower side on admission Continue metoprolol, restart lisinopril (9) CKD (chronic kidney disease) stage 3, GFR 30-59 ml/min: around baseline. (10) COPD (chronic obstructive pulmonary disease): Chronic hypoxic respiratory failure on 2 L of O2 No acute exacerbation Continue Trelegy, as needed nebs (11) Anxiety: Ativan PRN, citalopram daily. (12) Depression: Ativan PRN, citalopram daily. (13) Anemia: H&H 9.0 and 29.0 Prior to 2 recent procedures hemoglobin was 13.5 on 07/13/2020 so this is likely related to expected post-surgical blood loss. Obtain anemia panel in a.m. (14) Morbid obesity: BMI 46.7 Encourage lifestyle and diet modifications (15) DVT prophylaxis: SQ Lovenox twice daily secondary to weight Dispo: Medical telemetry [facility] Admission and Anticipated Discharge Date Admission Date: September 14, 2020 Subjective 70 yo F s/p fall with femoral fracture s/p IM nailing 9 weeks ago, c/b delayed wound healing and repeat surgery on 09/02 with revised hardware replacement with Dr. Andre Tobar and washout. Now presents with reinfection of surgical site. She is reporting persistent pain in the site which has delayed healing. Pain is managed with oxycodone Review of Systems Review of Systems: All systems reviewed & are unremarkable except as noted in Subjective Physical Exam Physical Exam: CONSTITUTIONAL: obese, vitals as above, generally deconditioned EYES: normal conjunctivae, no scleral icterus ENT: external ear and nose normal, MMM RESPIRATORY: small amount of wheezing in lower left lung, no crackles or rales. No increased respiratory effort. CARDIOVASCULAR: regular rate and rhythm, S1 and 2 heard without murmurs, gallops or rubs, no JVD, no peripheral edema GASTROINTESTINAL: soft, nontender, nondistended, no guarding MUSCULOSKELETAL: Generalized weakness, right lower extremity that is covered with surgical dressing. Wound includes sutures that are intact with surrounding erythema and some opening of the incision some drainage present on the dressing that is mild. SKIN: warm and dry, incision site as above NEUROLOGIC: CN 2-12 grossly intact, no sensory deficit, normal cognition, normal speech, myoclonus is not noted on exam today. PSYCHIATRIC: alert cooperative and oriented to person, place and time. Results & Data Results & Data ([facility]) Vital Signs (Past 12 Hours) Vital Signs Temp Pulse Pulse Resp BP Pulse Ox 09/15/20 16:48 78 09/15/20 11:40 36.7 C 73 20 121/57 L 94 09/15/20 07:48 36.8 C 79 20 150/63 H 90 Medications Administered Current Inpatient Medications Acetaminophen (Acetaminophen 325 Mg Tab) 650 mg PO Q4H PRN PRN Reason: Pain or Fever Stop: 10/13/20 20:09 Last Admin: 09/15/20 16:41 Dose: 650 mg Documented by: Al Hydrox/Mg Hydrox/Simethicone (Aluminum/Magnesium Susp 30 Ml Udc) 15 ml PO Q4H PRN PRN Reason: Dyspepsia Stop: 10/13/20 20:09 Albuterol (Albut/Ipratrop 3mg/0.5mg Neb 3 Ml Vial) 3 ml INH Q4H PRN PRN Reason: Shortness Of Breath Or Wheezing Stop: 10/13/20 20:09 Amitriptyline HCl (Amitriptyline Hcl 10 Mg Tab) 10 mg PO HS [facility] Stop: 10/13/20 20:59 Last Admin: 09/14/20 21:13 Dose: 10 mg Documented by: Ascorbic Acid (Ascorbic Acid 500 Mg Tab) 500 mg PO BID [facility] Stop: 10/13/20 20:59 Last Admin: 09/15/20 08:59 Dose: 500 mg Documented by: Aspirin (Aspirin 81 Mg Ectab) 81 mg PO QAM [facility] Stop: 10/14/20 08:59 Last Admin: 09/15/20 09:19 Dose: 81 mg Documented by: Citalopram Hydrobromide (Citalopram 20 Mg Tab) 10 mg PO QAM [facility] Stop: 10/14/20 08:59 Last Admin: 09/15/20 09:18 Dose: 10 mg Documented by: Diclofenac Sodium (Diclofenac Sod 1% Gel 100 Gm Tube) 2 gm EXT QID [facility] Stop: 10/13/20 20:09 Last Admin: 09/15/20 16:42 Dose: 2 gm Documented by: Docusate Sodium (Docusate Sodium 100 Mg Cap) 100 mg PO BID [facility] Stop: 10/13/20 20:59 Last Admin: 09/15/20 08:59 Dose: 100 mg Documented by: Enoxaparin Sodium (Enoxaparin Inj 40 Mg/0.4 Ml Syr) 40 mg SQ Q12H [facility] Stop: 10/13/20 21:59 Last Admin: 09/15/20 08:59 Dose: 40 mg Documented by: Ergocalciferol (Ergocalciferol 50,000 Units 1250 Mcg Cap) 50,000 units PO Mo@0900 [facility] Stop: 10/15/20 08:59 Last Admin: 09/15/20 09:18 Dose: 50,000 units Documented by: Fluticasone Furoate (Fluticasone Furoate 200mcg 14 Puffs/Inhaler) 1 puffs INH DAILY [facility]; Protocol Stop: 10/14/20 08:59 Last Admin: 09/15/20 08:58 Dose: 1 puffs Documented by: Fluticasone Propionate (Fluticasone Propionate Na Spr 16 Gm Btl) 2 sprays NA DAILY PRN PRN Reason: Allergy Symptoms Stop: 10/13/20 20:09 Last Admin: 09/15/20 08:58 Dose: 2 sprays Documented by: Furosemide (Furosemide 20 Mg Tab) 20 mg PO QAM [facility] Stop: 10/16/20 08:59 Vancomycin HCl 1,500 mg/ (Sodium Chloride) 530 mls @ 200 mls/hr IV Q18H [facility] Stop: 09/21/20 14:59 Last Infusion: 09/15/20 11:41 Dose: Infused Documented by: Cefepime HCl 2,000 mg/ Syringe 20 mls @ 5 mls/min IV Q12H [facility] Stop: 09/25/20 11:59 Last Admin: 09/15/20 12:56 Dose: 5 mls/min Documented by: Lorazepam (Lorazepam 1 Mg Tab) 1 mg PO BID PRN PRN Reason: Anxiety Stop: 10/13/20 20:42 Last Admin: 09/15/20 09:11 Dose: 1 mg Documented by: Magnesium Hydroxide (Magnesium Hydroxide Susp 30 Ml Udc) 30 ml PO Q12H PRN PRN Reason: Constipation Stop: 10/13/20 20:09 Metoprolol Succinate (Metoprolol Succ 25mg Ext Rel Tab) [facility]: 10/14/20 08:59 Last Admin: 09/15/20 09:18 Dose: 25 mg Documented by: Miscellaneous Information (Vancomycin Consult Active) 1 ea N/A UD PRN PRN Reason: Consult Stop: 10/13/20 20:09 Montelukast Sodium (Montelukast Sodium 10 Mg Tablet) 10 mg PO HS [facility] Stop: 10/13/20 20:59 Last Admin: 09/14/20 21:13 Dose: 10 mg Documented by: Multivitamins (Multivitamin Tab) [facility]: 10/14/20 08:59 Last Admin: 09/15/20 09:19 Dose: 1 tab Documented by: Nystatin (Nystatin Powder 15gm Btl) 1 appln EXT BID [facility] Stop: 10/13/20 20:59 Last Admin: 09/15/20 08:58 Dose: 1 appln Documented by: Ondansetron HCl (Ondansetron Inj 2 Mg/Ml 2 Ml Vial) 4 mg IV Q6H PRN PRN Reason: Nausea Stop: 10/13/20 20:09 Oxycodone HCl (Oxycodone Hcl Ir 5 Mg Tab (Immediate Release)) 5 mg PO Q6H PRN PRN Reason: pain Stop: 09/27/20 20:42 Last Admin: 09/15/20 14:17 Dose: 5 mg Documented by: Pantoprazole Sodium (Pantoprazole 40 Mg Tab) 40 mg PO QAM [facility] Stop: 10/14/20 08:59 Last Admin: 09/15/20 09:19 Dose: 40 mg Documented by: Polyethylene Glycol (Polyethylene (Miralax) 17 Gm Pack) 17 gm PO DAILY PRN PRN Reason: Constipation Stop: 10/13/20 20:09 Polyethylene Glycol (Polyethylene (Miralax) 17 Gm Pack) 17 gm PO QAM [facility] Stop: 10/14/20 08:59 Last Admin: 09/15/20 09:01 Dose: Not Given Documented by: Pregabalin (Pregabalin 150 Mg Cap) 150 mg PO TID [facility] Stop: 10/13/20 20:59 Last Admin: 09/15/20 14:18 Dose: 150 mg Documented by: Simvastatin (Simvastatin 40 Mg Tab) 40 mg PO [facility] Stop: 10/13/20 20:59 Last Admin: 09/14/20 21:13 Dose: 40 mg Documented by: Trazodone HCl (Trazodone Hcl 50 Mg Tab) 50 mg PO [facility] Stop: 10/13/20 20:59 Last Admin: 09/14/20 21:14 Dose: 50 mg Documented by: Umeclidinium/Vilanterol (Umeclidinium/Vilanterol 62.5/25mcg 7 Puffs/Inhaler) 1 puffs INH DAILY [facility]; Protocol Stop: 10/14/20 08:59 Last Admin: 09/15/20 08:58 Dose: 1 puffs Documented by: (1) COPD (chronic obstructive pulmonary disease) COPD type: unspecified COPD Qualified Code(s): J44.9 - Chronic obstructive pulmonary disease, unspecified
[2020-09-15] MEDS: AMITRIPTYLINE HCL 10 MG TAB PO SCH (20:40)
[2020-09-15] MEDS: MONTELUKAST SODIUM 10 MG TABLET PO SCH (20:41)
[2020-09-15] MEDS: SIMVASTATIN 40 MG TAB PO SCH (20:42)
[2020-09-15] MEDS: traZODone HCL 50 MG TAB PO SCH (20:42)
[2020-09-16] MEDS: CEFEPIME 2,000 MG in SYRINGE 0 ML IV SCH ×2 (00:29→11:45)
[2020-09-16] MEDS ORDERED: VANCOMYCIN TROUGH ONE (02:30)
[2020-09-16 02:47] LABS: Creatinine Clr Calc Pharmacy 64.3 ml/min; Est GFR (African American) 60.1; Est GFR (Non-African American) 51.8
[2020-09-16] MEDS: VANCOMYCIN HCL 1,500 MG in SODIUM CHLORIDE 0.9% 500 ML IV SCH (04:01)
[2020-09-16] MEDS: FLUTICASONE FUROATE 200MCG 14 PUFFS/INHALER INH SCH (07:31)
[2020-09-16] MEDS: PANTOprazole 40 MG TAB PO SCH (07:32)
[2020-09-16] MEDS: FLUTICASONE PROPIONATE NA SPR 16 GM BTL PRN (07:32)
[2020-09-16] MEDS: UMECLIDINIUM/VILANTEROL 62.5/25MCG 7 PUFFS/INHALER INH SCH (07:32)
[2020-09-16] MEDS: ASPIRIN 81 MG ECTAB PO SCH (07:32)
[2020-09-16] MEDS: METOPROLOL SUCC 25MG EXT REL TAB PO SCH (07:32)
[2020-09-16] MEDS: MULTIVITAMIN TAB PO SCH (07:32)
[2020-09-16] MEDS: LORazepam 1 MG TAB PO PRN ×2 (07:33→10:32)
[2020-09-16] MEDS: CITALOPRAM 20 MG TAB PO SCH (07:33)
[2020-09-16] MEDS: oxyCODONE HCL IR 5 MG TAB (IMMEDIATE RELEASE) PO PRN ×3 (07:33→22:21)
[2020-09-16] MEDS: ASCORBIC ACID 500 MG TAB PO SCH ×2 (07:33→22:18)
[2020-09-16] MEDS: POLYETHYLENE (MIRALAX) 17 GM PACK PO SCH (07:34)
[2020-09-16] MEDS: NYSTATIN POWDER 15GM BTL EXT SCH ×2 (07:34→22:19)
[2020-09-16] MEDS: CEROVITE ADV FORMULA TAB PO SCH (07:35)
[2020-09-16] MEDS: DOCUSATE SODIUM 100 MG CAP PO SCH ×2 (07:36→22:15)
[2020-09-16] MEDS: DICLOFENAC SOD 1% GEL 100 GM TUBE EXT SCH ×4 (07:37→22:19)
[2020-09-16] MEDS: lisinopril 5 MG TAB PO SCH (07:37)
[2020-09-16 08:02] LABS: Basophils # (auto) 0.01 K/uL (0-0.2); Basophils % (auto) 0.2 %; Eosinophils # (auto) 0.28 K/uL (0-0.5); Hematocrit (blood only) 28.6 % (37-47); Hemoglobin 9.1 g/dL (12.0-16.0); Lymphocytes # (auto) 0.79 K/uL (1.2-3.4); Lymphocytes % (auto) 19.7 %; Mean Corpuscular Hemoglobin 31.4 pg (25-34); Mean Corpuscular Hgb Conc 31.8 g/dL (32-36); Mean Corpuscular Volume 98.6 fL (80-100); Mean Platelet Volume 10.6 fL (7.4-10.4); Monocytes # (auto) 0.46 K/uL (0.11-0.59); Monocytes % (auto) 11.5 %; Neutrophils # (auto) 2.47 K/uL (1.4-6.5); Neutrophils % (auto) 61.6 %; Platelet Count 174 K/uL (130-400); RDW Coefficient of Variation 14.7 % (11.5-14.5); RDW Standard Deviation 53.1 fL (36.4-46.3); White Blood Count 4.01 K/uL (4.8-10.8)
[2020-09-16] MEDS: PREGABALIN 150 MG CAP PO SCH ×3 (08:14→22:18)
[2020-09-16 08:37] LABS: BUN Creatinine Ratio 24.2 (10-20); Calcium 9.2 mg/dl (8.5-10.1); Creatinine Clr Calc Pharmacy 65.7 ml/min; Est GFR (African American) 62.9; Est GFR (Non-African American) 54.3; Potassium 4.3 mmol/L (3.5-5.1)
[2020-09-16] MEDS: FUROSEMIDE 20 MG TAB PO SCH (09:07)
[2020-09-16] MEDS: ENOXAPARIN INJ 40 MG/0.4 ML SYR SQ SCH (09:08)
--- NOTE | 2020-09-16 09:53 | Orthopedic Progress Note ---
Date of Service September 16, 2020 Assessment & Plan (1) Non-healing surgical wound: Discussed findings with patient. It has been a couple months since her surgery.'s been 2 weeks since we revised her wound and reinserted the screw. Superficial wound culture was positive for MRSA. She is on Vanco and ceftriaxone. She is also on Lovenox which may contribute to wound oozing. Continue all antibiotics. Consideration for possible wound VAC. May also need to surgically cleaned the wound and apply wound VAC. Will advise. She has a femoral nail in place, long plate total knee and total hip. Present on Admission?: Yes (2) Morbid obesity: (3) Right femoral fracture: Admission and Anticipated Discharge Date Admission Date: September 14, 2020 Subjective Reports chills. Fever. Was diagnosed with UTI and admitted. The right leg has not really been bothering her. She is 2 weeks status post wound revision and reinsertion of a loose distal interlocking screw. She is MRSA positive carrier status. Physical Exam Physical Exam: The central 3 cm of the wound show some minimal serous drainage. It is not completely healed. The upper and lower portions of the incision are healed. There are some very faint surrounding erythema but no fluctuance. Her knee motion is 0-90 and she has no knee or thigh tenderness. She has 1+ edema of the lower leg. We will get her a JACI hose. She can flex and extend her ankle. Her neurovascular status is grossly intact. Results & Data ([facility]) Vital Signs (Past 12 Hours) Vital Signs Temp Pulse Pulse Resp BP Pulse Ox 09/16/20 07:17 36.7 C 69 20 135/68 96 09/16/20 07:06 61 09/16/20 03:05 36.6 C 64 18 112/55 L 94 09/15/20 22:16 64 09/15/20 22:11 36.7 C 67 18 130/60 92
--- NOTE | 2020-09-16 10:13 | Pharmacy Report ---
Pharmacy Abx Dose Short Note - Date of Service September 16, 2020 - Assessment & Plan Assessment 70 year old F receiving vancomycin and cefepime for treatment of nonhealing surgical wound/UTI Day # 4 of antimicrobial therapy. Plan Vancomycin * Trough level came back supratherapeutic today at ~25 mcg/ml (goal 15-20 mcg/ml) * Vancomycin dosing placed on hold, will plan to obtain a random level in the AM to assist with further dosing * Ordered random level when estimated level <20 mcg/ml to ensure safe to redose * Surgery following patient and possible wound VAC may be necessary Pharmacy will continue to follow and will adjust dose/frequency as necessary. Thank you.
[2020-09-16] MEDS: ACETAMINOPHEN 325 MG TAB PO PRN (10:32)
--- NOTE | 2020-09-16 15:25 | Hospitalist Progress Note ---
Date of Service September 16, 2020 Assessment & Plan (1) Sepsis: sepsis on admission 2/ CAUTI and/or surgical site infection. resuscitated at this point. Cont broad abx and ongoing investigation. (2) Cellulitis of right lower extremity: concern for surgical site infection. Cont current vancomycin and cefepime. ID supports this for now through next surgical revisal planned for am. WBAT per patient. (3) Post-operative state: Right periprosthetic femoral fracture status post ORIF and IM nail in [place] 06/2020 Patient with loosened screw and non wound healing requiring wound and hardware revision on 09/[address] Tobar Now with increased redness and warmth to incision Orthopedics recommends repeat site revision planned for tmrw. Dr. Tobar. (4) Acute on chronic diastolic CHF (congestive heart failure): Compensated. Back on her home oral Lasix. Of note, she underwent her last surgery on the same oxygen supplementation that she is currently on. This has been her new baseline. (5) Catheter-associated urinary tract infection: Passed TOV and hernandez is out. Would only use Hernandez temporarily perioper atively and would not let it sit there long-term. Cont current antibiotics. (6) Myoclonus: Recent change in narcotic therapy from dilaudid to oxycodone with a questionable decrease in Ativan at the facility. Myoclonus has resolved. Per neurology input, an EEG was performed and normal. No further workup at this time. (7) Elevated troponin: Chronically elevated in past No chest pain or shortness of breath, EKG without ST change Repeat troponin Possibly in setting of mild CHF which is now compensated although patient is physically deconditioned. TTE confirmed no abnormal wall motion with normal LV 60-65% and Grade 2 DD with moderate . No further workup at this time. (8) Hypertension: Blood pressure on lower side on admission. Cont metoprolol and lisinopril per home regimen. (9) CKD (chronic kidney disease) stage 3, GFR 30-59 ml/min: around baseline. (10) COPD (chronic obstructive pulmonary disease): Chronic hypoxic respiratory failure on 2 L of O2 No acute exacerbation Continue Trelegy, as needed nebs (11) Anxiety: Ativan PRN, citalopram daily. (12) Depression: Ativan PRN, citalopram daily. (13) Anemia: H&H 9.0 and 29.0 Prior to 2 recent procedures hemoglobin was 13.5 on 07/13/2020 so this is likely related to expected post-surgical blood loss. Cont to monitor. (14) Morbid obesity: BMI 46.7 Encourage lifestyle and diet modifications (15) DVT prophylaxis: SQ Lovenox twice daily secondary to weight Dispo: Medical telemetry DNR/DNI DO Ari Rowland Hospitalist Admission and Anticipated Discharge Date Admission Date: September 14, 2020 Subjective 70 yo F s/p fall with femoral fracture s/p IM nailing 9 weeks ago, c/b delayed wound healing and repeat surgery on 09/02 with revised hardware replacement with Dr. Andre Tobar and washout. Now presents with reinfection of surgical site. She is reporting persistent pain in the site which has delayed healing. Pain is managed with oxycodone She is anxious about upcoming repeat surgery ID weighed in and recommends to continue cefepime and vancomycin that is ongoing. had a BM today Review of Systems Review of Systems: All systems reviewed & are unremarkable except as noted in Subjective Physical Exam Physical Exam: CONSTITUTIONAL: obese, vitals as above, generally deconditioned EYES: normal conjunctivae, no scleral icterus ENT: external ear and nose normal, MMM RESPIRATORY: Clear to auscultation throughout, no crackles or rales. CARDIOVASCULAR: regular rate and rhythm, S1 and 2 heard without murmurs, gallops or rubs, no JVD, no peripheral edema GASTROINTESTINAL: soft, nontender, nondistended, no guarding MUSCULOSKELETAL: Generalized weakness, right lower extremity that is covered with surgical dressing. Wound includes sutures that are intact with surrounding erythema and some opening of the incision some drainage present on the dressing that is mild. SKIN: warm and dry, incision site as above NEUROLOGIC: CN 2-12 grossly intact, no sensory deficit, normal cognition, normal speech, myoclonus is not noted on exam today. PSYCHIATRIC: alert cooperative and oriented to person, place and time. Results & Data Results & Data ([facility]) Vital Signs (Past 12 Hours) Vital Signs Temp Pulse Pulse Resp BP Pulse Ox 09/16/20 14:52 69 09/16/20 11:43 36.5 C 69 20 146/69 H 99 09/16/20 07:17 36.7 C 69 20 135/68 96 09/16/20 07:06 61 Laboratory Results Short CBC 09/16/20 Range/Units 07:22 WBC 4.01 L (4.8-10.8) K/uL Hgb 9.1 L (12.0-16.0) g/dL Hct 28.6 L (37-47) % Plt Count 174 (130-400) K/uL BMP 09/16/20 09/16/20 02:16 07:22 Sodium 136 Potassium 4.3 Chloride 100 Carbon Dioxide 33 H BUN 25 H Creatinine 1.07 1.03 Glucose 97 Calcium 9.2 Medications Administered Current Inpatient Medications Acetaminophen (Acetaminophen 325 Mg Tab) 650 mg PO Q4H PRN PRN Reason: Pain or Fever Stop: 10/13/20 20:09 Last Admin: 09/16/20 10:32 Dose: 650 mg Documented by: Al Hydrox/Mg Hydrox/Simethicone (Aluminum/Magnesium Susp 30 Ml Udc) 15 ml PO Q4H PRN PRN Reason: Dyspepsia Stop: 10/13/20 20:09 Albuterol (Albut/Ipratrop 3mg/0.5mg Neb 3 Ml Vial) 3 ml INH Q4H PRN PRN Reason: Shortness Of Breath Or Wheezing Stop: 10/13/20 20:09 Amitriptyline HCl (Amitriptyline Hcl 10 Mg Tab) 10 mg PO HS [facility] Stop: 10/13/20 20:59 Last Admin: 09/15/20 20:40 Dose: 10 mg Documented by: Ascorbic Acid (Ascorbic Acid 500 Mg Tab) 500 mg PO BID [facility] Stop: 10/13/20 20:59 Last Admin: 09/16/20 07:33 Dose: 500 mg Documented by: Aspirin (Aspirin 81 Mg Ectab) 81 mg PO QAM [facility] Stop: 10/14/20 08:59 Last Admin: 09/16/20 07:32 Dose: 81 mg Documented by: Citalopram Hydrobromide (Citalopram 20 Mg Tab) 10 mg PO QAM [facility] Stop: 10/14/20 08:59 Last Admin: 09/16/20 07:33 Dose: 10 mg Documented by: Diclofenac Sodium (Diclofenac Sod 1% Gel 100 Gm Tube) 2 gm EXT QID [facility] Stop: 10/13/20 20:09 Last Admin: 09/16/20 13:14 Dose: 2 gm Documented by: Docusate Sodium (Docusate Sodium 100 Mg Cap) 100 mg PO BID [facility] Stop: 10/13/20 20:59 Last Admin: 09/16/20 07:36 Dose: Not Given Documented by: Enoxaparin Sodium (Enoxaparin Inj 40 Mg/0.4 Ml Syr) 40 mg SQ Q12H [facility] Stop: 10/13/20 21:59 Last Admin: 09/16/20 09:08 Dose: 40 mg Documented by: Ergocalciferol (Ergocalciferol 50,000 Units 1250 Mcg Cap) 50,000 units PO Mo@0900 [facility] Stop: 10/15/20 08:59 Last Admin: 09/15/20 09:18 Dose: 50,000 units Documented by: Fluticasone Furoate (Fluticasone Furoate 200mcg 14 Puffs/Inhaler) 1 puffs INH DAILY [facility]; Protocol Stop: 10/14/20 08:59 Last Admin: 09/16/20 07:31 Dose: 1 puffs Documented by: Fluticasone Propionate (Fluticasone Propionate Na Spr 16 Gm Btl) 2 sprays NA DAILY PRN PRN Reason: Allergy Symptoms Stop: 10/13/20 20:09 Last Admin: 09/16/20 07:32 Dose: 2 sprays Documented by: Furosemide (Furosemide 20 Mg Tab) 20 mg PO QAM [facility] Stop: 10/16/20 08:59 Last Admin: 09/16/20 09:07 Dose: 20 mg Documented by: Cefepime HCl 2,000 mg/ Syringe 20 mls @ 5 mls/min IV Q12H [facility] Stop: 09/25/20 11:59 Last Admin: 09/16/20 11:45 Dose: 5 mls/min Documented by: Lisinopril (Lisinopril 5 Mg Tab) 5 mg PO QAM [facility] Stop: 10/16/20 08:59 Last Admin: 09/16/20 07:37 Dose: 5 mg Documented by: Lorazepam (Lorazepam 1 Mg Tab) 1 mg PO BID PRN PRN Reason: Anxiety Stop: 10/13/20 20:42 Last Admin: 09/16/20 10:32 Dose: 1 mg Documented by: Magnesium Hydroxide (Magnesium Hydroxide Susp 30 Ml Udc) 30 ml PO Q12H PRN PRN Reason: Constipation Stop: 10/13/20 20:09 Metoprolol Succinate (Metoprolol Succ 25mg Ext Rel Tab) 25 mg PO QAM [facility] Stop: 10/14/20 08:59 Last Admin: 09/16/20 07:32 Dose: 25 mg Documented by: Miscellaneous Information (Vancomycin Consult Active) 1 ea N/A UD PRN PRN Reason: Consult Stop: 10/13/20 20:09 Montelukast Sodium (Montelukast Sodium 10 Mg Tablet) 10 mg PO HS [facility] Stop: 10/13/20 20:59 Last Admin: 09/15/20 20:41 Dose: 10 mg Documented by: Multivitamins (Multivitamin Tab) 1 tab PO QAM [facility] Stop: 10/14/20 08:59 Last Admin: 09/16/20 07:32 Dose: 1 tab Documented by: Multivitamins/Minerals (Cerovite Adv Formula Tab) 1 tab PO DAILY [facility] Stop: 10/16/20 08:59 Last Admin: 09/16/20 07:35 Dose: 1 tab Documented by: Nystatin (Nystatin Powder 15gm Btl) 1 appln EXT BID [facility] Stop: 10/13/20 20:59 Last Admin: 09/16/20 07:34 Dose: 1 appln Documented by: Ondansetron HCl (Ondansetron Inj 2 Mg/Ml 2 Ml Vial) 4 mg IV Q6H PRN PRN Reason: Nausea Stop: 10/13/20 20:09 Oxycodone HCl (Oxycodone Hcl Ir 5 Mg Tab (Immediate Release)) 5 mg PO Q6H PRN PRN Reason: pain Stop: 09/27/20 20:42 Last Admin: 09/16/20 15:09 Dose: 5 mg Documented by: Pantoprazole Sodium (Pantoprazole 40 Mg Tab) 40 mg PO QAM [facility] Stop: 10/14/20 08:59 Last Admin: 09/16/20 07:32 Dose: 40 mg Documented by: Polyethylene Glycol (Polyethylene (Miralax) 17 Gm Pack) 17 gm PO DAILY PRN PRN Reason: Constipation Stop: 10/13/20 20:09 Polyethylene Glycol (Polyethylene (Miralax) 17 Gm Pack) 17 gm PO QAM [facility] Stop: 10/14/20 08:59 Last Admin: 09/16/20 07:34 Dose: Not Given Documented by: Pregabalin (Pregabalin 150 Mg Cap) 150 mg PO TID [facility] Stop: 10/13/20 20:59 Last Admin: 09/16/20 13:14 Dose: 150 mg Documented by: Simvastatin (Simvastatin 40 Mg Tab) 40 mg PO HS [facility] Stop: 10/13/20 20:59 Last Admin: 09/15/20 20:42 Dose: 40 mg Documented by: Trazodone HCl (Trazodone Hcl 50 Mg Tab) 50 mg PO HS [facility] Stop: 10/13/20 20:59 Last Admin: 09/15/20 20:42 Dose: 50 mg Documented by: Umeclidinium/Vilanterol (Umeclidinium/Vilanterol 62.5/25mcg 7 Puffs/Inhaler) 1 puffs INH DAILY [facility]; Protocol Stop: 10/14/20 08:59 Last Admin: 09/16/20 07:32 Dose: 1 puffs Documented by: (1) COPD (chronic obstructive pulmonary disease) COPD type: unspecified COPD Qualified Code(s): J44.9 - Chronic obstructive pulmonary disease, unspecified
[2020-09-16] MEDS ORDERED: ALBUT/IPRATROP 3MG/0.5MG NEB 3 ML VIAL NEB PRN (15:40)
[2020-09-16] MEDS: AMITRIPTYLINE HCL 10 MG TAB PO SCH (22:17)
[2020-09-16] MEDS: SIMVASTATIN 40 MG TAB PO SCH (22:18)
[2020-09-16] MEDS: traZODone HCL 50 MG TAB PO SCH (22:18)
[2020-09-16] MEDS: MONTELUKAST SODIUM 10 MG TABLET PO SCH (22:18)
[2020-09-17] MEDS: CEFEPIME 2,000 MG in SYRINGE 0 ML IV SCH ×2 (00:06→11:34)
[2020-09-17] MEDS: LORazepam 1 MG TAB PO PRN ×2 (04:13→16:44)
[2020-09-17] MEDS: FLUTICASONE PROPIONATE NA SPR 16 GM BTL PRN (07:39)
[2020-09-17] MEDS: FLUTICASONE FUROATE 200MCG 14 PUFFS/INHALER INH SCH (07:39)
[2020-09-17] MEDS: PANTOprazole 40 MG TAB PO SCH (07:40)
[2020-09-17] MEDS: ASCORBIC ACID 500 MG TAB PO SCH ×2 (07:40→21:15)
[2020-09-17] MEDS: CEROVITE ADV FORMULA TAB PO SCH (07:40)
[2020-09-17] MEDS: DOCUSATE SODIUM 100 MG CAP PO SCH ×3 (07:40→21:15)
[2020-09-17] MEDS: FUROSEMIDE 20 MG TAB PO SCH (07:40)
[2020-09-17] MEDS: ASPIRIN 81 MG ECTAB PO SCH (07:41)
[2020-09-17] MEDS: lisinopril 5 MG TAB PO SCH (07:41)
[2020-09-17] MEDS: CITALOPRAM 20 MG TAB PO SCH (07:41)
[2020-09-17] MEDS: METOPROLOL SUCC 25MG EXT REL TAB PO SCH (07:41)
[2020-09-17] MEDS: NYSTATIN POWDER 15GM BTL EXT SCH ×2 (07:42→21:16)
[2020-09-17] MEDS: DICLOFENAC SOD 1% GEL 100 GM TUBE EXT SCH (07:42)
[2020-09-17] MEDS: MULTIVITAMIN TAB PO SCH (07:42)
[2020-09-17] MEDS: POLYETHYLENE (MIRALAX) 17 GM PACK PO SCH (07:43)
[2020-09-17] MEDS: UMECLIDINIUM/VILANTEROL 62.5/25MCG 7 PUFFS/INHALER INH SCH (07:43)
[2020-09-17] MEDS: PREGABALIN 150 MG CAP PO SCH ×3 (08:15→21:15)
[2020-09-17] MEDS: oxyCODONE HCL IR 5 MG TAB (IMMEDIATE RELEASE) PO PRN ×3 (08:15→22:42)
[2020-09-17] MEDS ORDERED: fentaNYL citrate 100 MCG/2 ML VIAL ONE (08:36)
[2020-09-17] MEDS ORDERED: DEXAMETHASONE SOD INJ 4 MG/ML VIAL ONE (08:36)
[2020-09-17] MEDS ORDERED: MIDAZOLAM HCL 1 MG/ML 2ML VIAL ONE (08:36)
[2020-09-17] MEDS ORDERED: PROPOFOL IV EMULSION 10 MG/ML 20 ML VIAL IV ONE (08:36)
[2020-09-17] MEDS ORDERED: ONDANSETRON INJ 2 MG/ML 2 ML VIAL ONE (08:36)
[2020-09-17] MEDS ORDERED: LIDOCAINE HCL 2% 2 ML VIAL/AMP(20MG/ML) INFIL ONE (08:36)
--- NOTE | 2020-09-17 08:47 | Anesthesiology Consultation ---
Date of Service September 17, 2020 History Surgery Operation Date: 09/17/20 10:15 Proposed Procedures p Incision and Drainage of Right Leg Wound With Application of Wound Vac - Andre Tobar MD Height/Weight Height: 5 ft 6 in Weight: 121.1 kg Allergies Allergy/AdvReac Type Severity Reaction Status Date / Time No Known Allergies Allergy Verified 09/13/20 15:30 Medications Home Medications Medication Instructions Recorded Confirmed Last Taken docusate sodium [Stool Softener] 100 mg PO BID 10/07/18 09/13/20 09/13/20 ergocalciferol (vitamin D2) 50,000 unit PO WK 10/07/18 09/13/20 09/08/20 [Vitamin D2] fluticasone propionate [Flonase 2 spray INTRANASAL DAILY PRN 10/07/18 09/13/20 09/13/20 Allergy Relief] furosemide [Lasix] 20 mg PO QAM 10/07/18 09/13/20 09/13/20 lisinopril [Zestril] 5 mg PO QA 10/07/18 09/13/20 09/13/20 montelukast [Singulair] 10 mg PO 10/07/18 09/13/20 09/12/20 pantoprazole [Protonix] 40 mg PO QAM 10/07/18 09/13/20 09/13/20 simvastatin [Zocor] 40 mg PO 10/07/18 09/13/20 09/12/20 trazodone 50 mg PO 10/07/18 09/13/20 09/12/20 Oxygen Home #1 ea 10/10/18 08/27/20 Unknown metoprolol succinate [Toprol XL] 25 mg PO QAM 04/30/19 09/13/20 09/13/20 aspirin 81 mg PO QAM 06/14/19 09/13/20 09/13/20 ipratropium-albuterol 3 ml INHALATION Q4H PRN 06/14/19 09/13/20 09/13/20 12:30 lorazepam [Ativan] 1 mg PO BID PRN 07/13/20 09/13/20 09/13/20 12:27 ascorbic acid (vitamin C) 500 mg 500 mg PO BID 08/27/20 09/13/20 09/13/20 tablet citalopram 20 mg tablet 10 mg PO QAM tab 08/27/20 09/13/20 09/13/20 enoxaparin 40 mg/0.4 mL 40 mg SUBCUT QAM 08/27/20 09/13/20 09/09/20 08:30 subcutaneous syringe guaifenesin 100 mg/5 mL oral liquid 100 mg PO Q4H PRN ml 08/27/20 09/13/20 08/31/20 12:53 lidocaine 5 % topical patch 1 patch TOPICAL BID 08/27/20 09/13/20 09/13/20 nystatin 100,000 unit/gram topical 1 applic TOPICAL BID 08/27/20 09/13/20 09/13/20 powder pregabalin 100 mg capsule 150 mg PO TID 08/27/20 09/13/20 09/13/20 protein supplement 30 ea PO DAILY ml 08/27/20 09/13/20 09/13/20 amitriptyline 10 mg PO HS 09/01/20 09/13/20 09/12/20 multivitamin 1 tab PO QAM 09/01/20 09/13/20 09/13/20 polyethylene glycol 3350 [Miralax] 17 g PO QAM 09/01/20 09/13/20 09/13/20 acetaminophen 1,000 mg PO Q8 PRN #30 tab 09/03/20 09/13/20 09/07/20 18:58 diclofenac sodium [Voltaren] 2 g TOPICAL QID 09/13/20 09/13/20 09/13/20 12:30 [id number] 1 inh INHALATION QAM 09/13/20 09/13/20 09/13/20 [Trelegy Ellipta] ondansetron HCl 4 mg PO Q6H PRN 09/13/20 09/13/20 09/11/20 05:11 oxycodone 10 mg PO Q6H PRN 09/13/20 09/13/20 09/13/20 04:08 PreserVision AREDS 1 cap PO DAILY 09/16/20 09/16/20 Unknown Active Medications Generic Name Dose Route Start Last Admin Trade Name Freq PRN Reason Stop Dose Admin Acetaminophen 650 mg 09/13/20 20:10 09/16/20 10:32 Acetaminophen 325 Mg Tab PO 10/13/20 20:09 650 mg Q4H PRN Administration Pain or Fever Amitriptyline HCl 10 mg 09/13/20 21:00 09/16/20 22:17 Amitriptyline Hcl 10 Mg Tab PO 10/13/20 20:59 10 mg HS ROBERT Administration Ascorbic Acid 500 mg 09/13/20 21:00 09/17/20 07:40 Ascorbic Acid 500 Mg Tab PO 10/13/20 20:59 500 mg BID ROBERT Administration Aspirin 81 mg 09/14/20 09:00 09/17/20 07:41 Aspirin 81 Mg Ectab PO 10/14/20 08:59 81 mg QAM ROBERT Administration Citalopram Hydrobromide 10 mg 09/14/20 09:00 09/17/20 07:41 Citalopram 20 Mg Tab PO 10/14/20 08:59 10 mg QAM ROBERT Administration Diclofenac Sodium 2 gm 09/13/20 20:10 09/17/20 07:42 Diclofenac Sod 1% Gel 100 Gm Tube EXT 10/13/20 20:09 Not Given QID ROBERT Docusate Sodium 100 mg 09/13/20 21:00 09/17/20 07:45 Docusate Sodium 100 Mg Cap PO 10/13/20 20:59 Not Given BID ROBERT Enoxaparin Sodium 40 mg 09/13/20 22:00 09/16/20 09:08 Enoxaparin Inj 40 Mg/0.4 Ml Syr SQ 10/13/20 21:59 40 mg Q12H ROBERT Administration Ergocalciferol 50,000 units 09/15/20 09:00 09/15/20 09:18 Ergocalciferol 50,000 Units 1250 Mcg Cap PO 10/15/20 08:59 50,000 units Mo@0900 ROBERT Administration Fluticasone Furoate 1 puffs 09/14/20 09:00 09/17/20 07:39 Fluticasone Furoate 200mcg 14 Puffs/Inhaler INH 10/14/20 08:59 1 puffs DAILY ROBERT Administration Protocol Fluticasone Propionate 2 sprays 09/13/20 20:10 09/17/20 07:39 Fluticasone Propionate Na Spr 16 Gm Btl NA 10/13/20 20:09 2 sprays DAILY PRN Administration Allergy Symptoms Furosemide 20 mg 09/16/20 09:00 09/17/20 07:40 Furosemide 20 Mg Tab PO 10/16/20 08:59 20 mg QAM ROBERT Administration Cefepime HCl 2,000 mg/ Syringe 20 mls @ 5 mls/min 09/15/20 12:00 09/17/20 00:06 IV 09/25/20 11:59 5 mls/min Q12H ROBERT Administration Lisinopril 5 mg 09/16/20 09:00 09/17/20 07:41 Lisinopril 5 Mg Tab PO 10/16/20 08:59 5 mg QAM ROBERT Administration Lorazepam 1 mg 09/13/20 20:43 09/17/20 04:13 Lorazepam 1 Mg Tab PO 10/13/20 20:42 1 mg BID PRN Administration Anxiety Metoprolol Succinate 25 mg 09/14/20 09:00 09/17/20 07:41 Metoprolol Succ 25mg Ext Rel Tab PO 10/14/20 08:59 25 mg QAM ROBERT Administration Montelukast Sodium 10 mg 09/13/20 21:00 09/16/20 22:18 Montelukast Sodium 10 Mg Tablet PO 10/13/20 20:59 10 mg HS ROBERT Administration Multivitamins 1 tab 09/14/20 09:00 09/17/20 07:42 Multivitamin Tab PO 10/14/20 08:59 1 tab QAM ROBERT Administration Multivitamins/Minerals 1 tab 09/16/20 09:00 09/17/20 07:40 Cerovite Adv Formula Tab PO 10/16/20 08:59 1 tab DAILY ROBERT Administration Nystatin 1 appln 09/13/20 21:00 09/17/20 07:42 Nystatin Powder 15gm Btl EXT 10/13/20 20:59 1 appln BID ROBERT Administration Oxycodone HCl 5 mg 09/13/20 20:43 09/17/20 08:15 Oxycodone Hcl Ir 5 Mg Tab (Immediate Release) PO 09/27/20 20:42 5 mg Q6H PRN Administration pain Pantoprazole Sodium 40 mg 09/14/20 09:00 09/17/20 07:40 Pantoprazole 40 Mg Tab PO 10/14/20 08:59 40 mg QAM ROBERT Administration Polyethylene Glycol 17 gm 09/14/20 09:00 09/17/20 07:43 Polyethylene (Miralax) 17 Gm Pack PO 10/14/20 08:59 Not Given QAM ROBERT Pregabalin 150 mg 09/13/20 21:00 09/17/20 08:15 Pregabalin 150 Mg Cap PO 10/13/20 20:59 150 mg TID ROBERT Administration Simvastatin 40 mg 09/13/20 21:00 09/16/20 22:18 Simvastatin 40 Mg Tab PO 10/13/20 20:59 40 mg HS ROBERT Administration Trazodone HCl 50 mg 09/13/20 21:00 09/16/20 22:18 Trazodone Hcl 50 Mg Tab PO 10/13/20 20:59 50 mg HS ROBERT Administration Umeclidinium/Vilanterol 1 puffs 09/14/20 09:00 09/17/20 07:43 Umeclidinium/Vilanterol 62.5/25mcg 7 Puffs/Inhaler INH 10/14/20 08:59 1 puffs DAILY ROBERT Administration Protocol Past Medical History Medical History Anxiety Chronic indwelling Gonzalez catheter CKD (chronic kidney disease) stage 3, GFR 30-59 ml/min Baseline creatine around 1.2 COPD (chronic obstructive pulmonary disease) on 3 liters of oxygen per records Depression Diastolic CHF due to valvular disease GERD (gastroesophageal reflux disease) History of pulmonary embolism 2013 Hyperlipidemia Hypertension Lumbar radiculopathy Macular degeneration Moderate aortic stenosis Per 07/14/20 ECHO: PATO 1.3-1.6 cm; AV peak velocity 3.52 m/s; AV mean gradient 21.1 mmHg Morbid obesity Poor vision Recurrent UTI Urinary retention with incomplete bladder emptying Past Family History Family History Other Cancer Past Surgical History Surgical History History of cholecystectomy History of hysterectomy History of right knee surgery History of surgery Right distal femur periprosthetic open reduction 07/14/20 and right femur I&D History of total left knee replacement History of total right hip arthroplasty History of total right knee replacement Social History Smoking Status: Former smoker tobacco type: cigarettes Hx Alcohol Use: No Hx Substance Use: No substance use type: does not use Substance Use Type Other:: Unknown [place] resident Physical Exam Vital Signs Last Vital Signs Temp 36.9 C 09/17/20 07:21 Pulse 71 09/17/20 07:21 Resp 16 09/17/20 07:21 BP 142/62 H 09/17/20 07:21 Pulse Ox 96 09/17/20 07:21 Testing Laboratory Results 09/16/20 07:22 Urine Color Yellow 09/13/20 14:38 Urine Appearance Clear (Clear) 09/13/20 14:38 Urine pH 5.5 (4.5-7.5) 09/13/20 14:38 Ur Specific [place] 1.011 (1.000-1.030) 09/13/20 14:38 Urine Protein Negative (Negative) 09/13/20 14:38 Urine Glucose (UA) Negative (Negative) 09/13/20 14:38 Urine Ketones Negative (Negative) 09/13/20 14:38 Urine Nitrite Negative (Negative) 09/13/20 14:38 Ur Leukocyte Esterase 3+ (Negative) H 09/13/20 14:38 Urine WBC (Auto) >30 /hpf (0-5) H 09/13/20 14:38 Urine RBC (Auto) 0-4 /hpf (0-4) 09/13/20 14:38 U Hyaline Cast (Auto) 1-5 /lpf (0-5) 09/13/20 14:38 U Epithel Cells (Auto) 0-5 /lpf (0-5) 09/13/20 14:38 Urine Bacteria (Auto) 2+ (Negative) H 09/13/20 14:38 09/14/20 19:45 Gram Stain - Final Leg,Right Wound Culture - Final Staph aureus MRSA 09/13/20 18:01 Aerobic Blood Culture - Preliminary Blood No growth in Aerobic bottle after 48 hours. Anaerobic Blood Culture - Final 09/13/20 18:01 Aerobic Blood Culture - Preliminary Blood No growth in Aerobic bottle after 48 hours. Anaerobic Blood Culture - Final 09/13/20 14:38 Urine Culture - Final Urine,Straight Cath Citrobacter amalonaticus Klebsiella pneumoniae Electrocardiogram Date: 09/13/20 Findings: + NSR @ Normal sinus rhythm Normal ECG When compared with ECG of 07-AUG-2019 16:51, No significant change was found Confirmed by Ankit Silver ([id number]) on 09/14/2020 7:54:17 AM Chest X-Ray Date: 09/13/20 IMPRESSION: 1. Cardiomegaly with mild pulmonary vascular congestion. 2. Emphysema. 3. No airspace consolidation or large pleural effusion is identified.
[2020-09-17] MEDS ORDERED: ATROPINE SULFATE 0.1 MG/ML 10ML SYR IV PRN (08:59)
[2020-09-17] MEDS ORDERED: ONDANSETRON INJ 2 MG/ML 2 ML VIAL IV PRN (08:59)
[2020-09-17] MEDS ORDERED: fentaNYL citrate 100 MCG/2 ML VIAL IV PRN (08:59)
[2020-09-17] MEDS ORDERED: HYDROmorphone INJ 1 MG/ML SYRINGE IV PRN (08:59)
[2020-09-17] MEDS ORDERED: ePHEDrine sulfate 50 MG/ML AMP IV PRN (08:59)
--- NOTE | 2020-09-17 08:59 | History & Physical Bridge Note ---
Date of Service September 17, 2020 History & Physical Bridge Note I have examined the patient, reviewed the History & Physical and in the interval since the performance of the History & Physical I have noted the following changes of clinical significance: no changes noted
[2020-09-17] MEDS ORDERED: VANCOMYCIN HCL 1 GM/270 ML BAG ONE (09:00)
[2020-09-17] MEDS ORDERED: BUPIVACAINE 0.5 % 5 MG/1 ML MPF 30ML VIAL ONE (09:04)
[2020-09-17] MEDS ORDERED: LIDOCAINE HCL 1% 20 ML VIAL ONE (09:04)
[2020-09-17] MEDS ORDERED: VANCOMYCIN CONSULT ACTIVE PRN (09:08)
[2020-09-17 09:11] LABS: Creatinine Clr Calc Pharmacy 82.3 ml/min; Est GFR (African American) 82.9; Est GFR (Non-African American) 71.5
--- NOTE | 2020-09-17 10:04 | Pharmacy Report ---
Pharmacy Abx Dose Short Note - Date of Service September 17, 2020 - Assessment & Plan Assessment 70 year old F receiving vancomycin/cefepime for treatment of UTI/cellulitis Day # 5 of antimicrobial therapy. Plan Vancomycin * Random level this AM trending down ~22.6 mcg/ml (goal 15-20) * Patient in OR this AM for I&D - provider ordered vancomycin 1 gm, was overrode by nursing and given. Provider likely unaware patient had been receiving vancomycin and/or had level this AM * Plan to start reduced dosing of vancomycin - will start 1250 mg iv q 24 hrs starting tomorrow. May delay start time of new order since level this AM was supratherapeutic and dose had been given Pharmacy will continue to follow and will adjust dose/frequency as necessary. Thank you.
--- NOTE | 2020-09-17 10:32 | Operative Report ---
Post Operative Report Pre & Post Diagnosis Operation Date: 09/17/20 10:15 <No data on this case meets the specified criteria> Delayed healing of right knee surgical incision status post ORIF of periprosthetic femoral fracture, status post wound and screw revision. I identified the patient and participated in the time-out.: Yes Procedure Operation Date: 09/17/20 10:15 Actual Procedures p irrigation and debridement of Right Leg Wound With Application of Wound Vac(Right) - Andre Tobar MD Surgeon Andre Tobar MD Savings Teller Kamaljit Cali Estimated Blood Loss 15 Findings Consistent with Post-Op Diagnosis Specimens Routine culture x1 labeled right knee wound. Drains Wound VAC Anesthesia Type General Complications none Disposition Accompanied Patient To Recovery: No Disposition: Recovery Room Indications Patient about 6 weeks out from ORIF of a right periprosthetic femur fracture done at [facility]. Postoperatively one of her screws backed out and she had some eschar over wound with delayed healing. Her wound was revised and a new screw was reinserted 2 weeks ago. She was recently admitted for concerns of sepsis. She did have urinary tract infection. The surgical wound shows some erythema and some serous drainage with yellow crusting and is not completely healed over its central one third. She is taken to the OR today for irrigation debridement application of wound VAC. Wound exploration. Description of Procedure Informed consent obtained. Patient identified. She identified the operative site. I marked with my initials. A preoperative surgical timeout was performed. A preop dose of IV antibiotics was given. She was taken to the operating room positioned supine on the operating room table in the anesthetic was administered. Examination revealed knee motion with gravity 0 to about 80 degrees. The knee had trace varus valgus laxity and full extension. In mid position she had trace to 1+ MCL laxity and 2+ LCL laxity. There was no knee effusion. Her lateral knee incision was not healed over it central one third which was a distance of about 5 cm. The sutures were removed. The leg was prescrubbed with Betadine and then prepped with Betadine paint and draped in usual sterile fashion. DVT prophylaxis with SCD. Postoperatively early mobility mechanical devices and Lovenox. Bump was placed under the right hip. Tourniquet applied to the right thigh and on sterilely. The tourniquet was inflated to 275 mmHg after exsanguinating the limb with gravity. Esmarch not used. The central one third of the wound was opened with a hemostat and was not healed. The sutures including 0 Vicryl and 2-0 Vicryl and the skin and subcutaneous tissues were removed as encountered. Some dissolving stimulant beads were encountered and these were removed with rongeur and irrigation as encountered. Unfortunately the distal deeper portion of the wound was not healed and the suture closing the tissue over the plate area was exposed within the wound and was removed. This exposed deep within the wound the lower portion of the plate. Irrigation with 1-1/2 to 2 L of saline was performed. Debridement of the wound margins with curette and rongeur and removal of any remaining stimulant bead material was performed. The wound was healthy in appearance without any necrosis. It was about 6 to 7 cm in length. Then applied a silver wound VAC sponge in the usual fashion with a Adaptic over the wound. The VAC deployed without difficulty. She was then awakened from anesthesia without difficulty and taken to recovery room in stable condition. Once the wound had been opened I took a culture of the right knee and sent for Gram stain aerobic and anaerobic culture. Counts were correct. Blood loss estimated to be 15 cc. Gauze sponge placed under the wound VAC tubing. Will discuss findings with patient once she is recovered. Plan is intravenous antibiotics specifically vancomycin at this point given her history of MRSA. Will discuss with team at [facility] regarding further care. She may be weightbearing as tolerated. I attest to the content of the Intraoperative Record and any orders documented therein. Any exceptions are noted below.
[2020-09-17] MEDS ORDERED: ROCURONIUM BROMIDE 10 MG/ML 5 ML VIAL IV ONE (10:39)
[2020-09-17] MEDS ORDERED: SUCCINYLCHOLINE CHLORIDE 20 MG/ML 10 ML VIAL IV ONE (10:39)
--- NOTE | 2020-09-17 10:56 | Anesthesiology Progress Note ---
Date of Service September 17, 2020 Anesthesia Post Procedure Vital Signs Vital Signs: Temp Pulse Pulse Pulse Resp BP Pulse Ox 09/17/20 10:50 77 17 147/44 H 96 09/17/20 10:40 85 14 142/65 H 96 09/17/20 10:32 36 C L 83 17 152/52 H 98 09/17/20 09:14 36.8 C 67 18 138/60 98 09/17/20 07:21 36.9 C 71 16 142/62 H 96 09/17/20 04:06 36.7 C 70 20 134/60 95 09/17/20 01:34 65 09/16/20 23:27 37.0 C 74 18 127/61 93 09/16/20 18:40 36.6 C 71 18 118/61 93 09/16/20 15:25 36.6 C 69 18 120/65 94 09/16/20 14:52 69 09/16/20 11:43 36.5 C 69 20 146/69 H 99 Pain Intensity Right Leg: Pain Intensity: 6 Transfer of Care Handoff Completed per policy Notes Mental Status: alert / awake / arousable and participated in evaluation Patient Amnestic to Procedure: Yes Nausea / Vomiting: adequately controlled Pain: adequately controlled Airway Patency, RR, SpO2: stable & adequate BP & HR: stable & adequate Hydration State: stable & adequate Anesthetic Complications: no major complications apparent and Pt Satisfied with anesthetic care
--- NOTE | 2020-09-17 11:14 | Operative Report ---
Post Operative Report Pre & Post Diagnosis Operation Date: 09/17/20 10:15 Pre-Op Diagnosis: Non healing right knee surgical wound Post-Op Diagnosis: Non healing right knee surgical wound I identified the patient and participated in the time-out.: Yes Procedure Operation Date: 09/17/20 10:15 Actual Procedures p Incision and Drainage of Right Leg Wound With Application of Wound Vac(Right) - Andre Tobar MD Surgeon Andre tobar MD Tablet Coater Kamaljit Cali Estimated Blood Loss 15 Findings Consistent with Post-Op Diagnosis Specimens culture Anesthesia Type General Complications none Disposition Accompanied Patient To Recovery: Yes Disposition: Recovery Room Description of Procedure As per 's note, I assisted in prepping and draping, certain parts of the procedure. I attest to the content of the Intraoperative Record and any orders documented therein. Any exceptions are noted below.
[2020-09-17] MEDS: SIMETHICONE 80 MG CHEW PO PRN ×2 (16:44→22:44)
--- NOTE | 2020-09-17 17:11 | Hospitalist Progress Note ---
Date of Service September 17, 2020 Assessment & Plan (1) Sepsis: Sepsis on admission 2/2 CAUTI and/or surgical site infection. Resuscitated at this point. Cont broad abx and ongoing investigation. Remains afebrile with normal white cell count Complains of dyspepsia Will try Maalox and Mylanta (2) Cellulitis of right lower extremity: Concern for surgical site infection. Cont current abx. WBAT per patient. Ortho consulted-appreciate input and recommendation Status post incision and drainage of right leg(Knee) wound with application of wound VAC (3) Post-operative state: Right periprosthetic femoral fracture status post ORIF OF RIGHT KNEE and IM nail in [place] 06/2020 Patient with loosened screw and non wound healing requiring wound and hardware revision on 09/[address] Tobar Now with increased redness and warmth to incision site Status post incision and drainage of the right knee wound with application of wound VAC (4) Acute on chronic diastolic CHF (congestive heart failure): Lasix given IV with improvement. Improved and at baseline oxygen needs with h/o COPD. She will switch to oral home Lasix in am. (5) Catheter-associated urinary tract infection: Passed TOV and hernandez is out. Would only use Hernandez temporarily perioperatively and would not let it sit there long-term. Cont current antibiotics. (6) Myoclonus: Recent change in narcotic therapy from dilaudid to oxycodone with a questionable decrease in Ativan at the facility. Myoclonus has resolved. Per neurology input, an EEG was performed and normal. No further workup at this time. (7) Elevated troponin: Chronically elevated in past No chest pain or shortness of breath, EKG without ST change Repeat troponin Possibly in setting of mild CHF which is now compensated although patient is physically deconditioned. TTE confirmed no abnormal wall motion with normal LV 60-65% and Grade 2 DD with moderate . No further workup at this time. (8) Hypertension: Blood pressure on lower side on admission Continue metoprolol, restart lisinopril (9) CKD (chronic kidney disease) stage 3, GFR 30-59 ml/min: around baseline. (10) COPD (chronic obstructive pulmonary disease): Chronic hypoxic respiratory failure on 2 L of O2 No acute exacerbation Continue Trelegy, as needed nebs (11) Anxiety: Ativan PRN, citalopram daily. (12) Depression: Ativan PRN, citalopram daily. (13) Anemia: H&H 9.0 and 29.0 Prior to 2 recent procedures hemoglobin was 13.5 on 07/13/2020 so this is likely related to expected post-surgical blood loss. Cont to monitor. (14) Morbid obesity: BMI 46.7 Encourage lifestyle and diet modifications (15) DVT prophylaxis: SQ Lovenox twice daily secondary to weight Dispo: Medical telemetry DNR/DNI Admission and Anticipated Discharge Date Admission Date: September 14, 2020 Subjective 09/17/2020 The patient was seen and examined in medical telemetry unit She is status post incision and drainage of right leg wound with application of wound VAC Complains of lots of abdominal distention and gas but has a bowel movement yesterday No nausea or vomiting and no other significant symptoms Review of Systems Review of Systems: All systems reviewed and are unremarkable except as noted below Gastrointestinal: + bloating; no nausea and no vomiting Physical Exam Physical Exam: Lying in bed with minimal distress due to abdominal discomfort and dyspepsia Constitutional: well developed, well nourished and + morbidly obese; not ill appearing Eyes: PERRL, conjunctivae normal, anicteric sclerae ENMT: external ear and nose normal, oropharynx normal Neck: trachea midline, no thyromegaly Respiratory: + respiratory distress (Feels distress but saturation remains normal) Auscultation: lungs clear to auscultation bilaterally Cardiovascular: Rate/Rhythm: regular rate and regular rhythm Heart Sounds: no murmur Extremities: + edema (Trace edema bilaterally) Gastrointestinal (Abdomen): Inspection/Auscultation: + abdomen distended and normal bowel sounds Percussion/Palpation: abdomen soft; abdomen nontender Musculoskeletal: No acute arthritis but has right knee incision and drainage with wound VAC placement Neurologic: Alert, awake and oriented x3. No focal sensory and motor deficit appreciated Lymphatic: no cervical or axillary lymphadenopathy Results & Data Results & Data ([facility]) Vital Signs (Past 12 Hours) Vital Signs Temp Pulse Pulse Resp BP Pulse Ox 09/17/20 15:35 36.6 C 81 18 110/53 L 91 09/17/20 12:51 36.8 C 69 20 122/63 95 09/17/20 11:30 36.6 C 64 121/66 96 09/17/20 11:10 69 17 130/52 L 96 09/17/20 11:00 37.3 C 74 15 126/83 96 09/17/20 10:50 77 17 147/44 H 96 09/17/20 10:40 85 14 142/65 H 96 09/17/20 10:32 36 C L 83 17 152/52 H 98 09/17/20 09:14 36.8 C 67 18 138/60 98 09/17/20 07:21 36.9 C 71 16 142/62 H 96 Laboratory Results BMP 09/17/20 07:46 Creatinine 0.82 Medications Administered Current Inpatient Medications Acetaminophen (Acetaminophen 325 Mg Tab) 650 mg PO Q4H PRN PRN Reason: Pain or Fever Stop: 10/13/20 20:09 Last Admin: 09/16/20 10:32 Dose: 650 mg Documented by: Al Hydrox/Mg Hydrox/Simethicone (Aluminum/Magnesium Susp 30 Ml Udc) 15 ml PO Q4H PRN PRN Reason: Dyspepsia Stop: 10/13/20 20:09 Albuterol (Albut/Ipratrop 3mg/0.5mg Neb 3 Ml Vial) 3 ml INH Q4H PRN PRN Reason: Shortness Of Breath Or Wheezing Stop: 10/13/20 20:09 Albuterol (Albut/Ipratrop 3mg/0.5mg Neb 3 Ml Vial) 3 ml NEB QIDR PRN PRN Reason: SOB/wheezing Stop: 10/16/20 18:59 Amitriptyline HCl (Amitriptyline Hcl 10 Mg Tab) 10 mg PO HS [facility] Stop: 10/13/20 20:59 Last Admin: 09/16/20 22:17 Dose: 10 mg Documented by: Ascorbic Acid (Ascorbic Acid 500 Mg Tab) 500 mg PO BID [facility] Stop: 10/13/20 20:59 Last Admin: 09/17/20 07:40 Dose: 500 mg Documented by: Aspirin (Aspirin 81 Mg Ectab) 81 mg PO QAM [facility] Stop: 10/14/20 08:59 Last Admin: 09/17/20 07:41 Dose: 81 mg Documented by: Citalopram Hydrobromide (Citalopram 20 Mg Tab) 10 mg PO QAM [facility] Stop: 10/14/20 08:59 Last Admin: 09/17/20 07:41 Dose: 10 mg Documented by: Docusate Sodium (Docusate Sodium 100 Mg Cap) 100 mg PO BID [facility] Stop: 10/13/20 20:59 Last Admin: 09/17/20 07:45 Dose: Not Given Documented by: Enoxaparin Sodium (Enoxaparin Inj 40 Mg/0.4 Ml Syr) 40 mg SQ Q12H [facility] Stop: 10/13/20 21:59 Last Admin: 09/16/20 09:08 Dose: 40 mg Documented by: Ergocalciferol (Ergocalciferol 50,000 Units 1250 Mcg Cap) 50,000 units PO Mo@0900 [facility] Stop: 10/15/20 08:59 Last Admin: 09/15/20 09:18 Dose: 50,000 units Documented by: Fluticasone Furoate (Fluticasone Furoate 200mcg 14 Puffs/Inhaler) 1 puffs INH DAILY [facility]; Protocol Stop: 10/14/20 08:59 Last Admin: 09/17/20 07:39 Dose: 1 puffs Documented by: Fluticasone Propionate (Fluticasone Propionate Na Spr 16 Gm Btl) 2 sprays NA DAILY PRN PRN Reason: Allergy Symptoms Stop: 10/13/20 20:09 Last Admin: 09/17/20 07:39 Dose: 2 sprays Documented by: Furosemide (Furosemide 20 Mg Tab) 20 mg PO QAM [facility] Stop: 10/16/20 08:59 Last Admin: 09/17/20 07:40 Dose: 20 mg Documented by: Cefepime HCl 2,000 mg/ Syringe 20 mls @ 5 mls/min IV Q12H [facility] Stop: 09/25/20 11:59 Last Admin: 09/17/20 11:34 Dose: 5 mls/min Documented by: Vancomycin HCl 1,250 mg/ (Sodium Chloride) 275 mls @ 200 mls/hr IV DAILY@1200 [facility] Stop: 09/25/20 11:59 Lisinopril (Lisinopril 5 Mg Tab) 5 mg PO QAM [facility] Stop: 10/16/20 08:59 Last Admin: 09/17/20 07:41 Dose: 5 mg Documented by: Lorazepam (Lorazepam 1 Mg Tab) 1 mg PO BID PRN PRN Reason: Anxiety Stop: 10/13/20 20:42 Last Admin: 09/17/20 16:44 Dose: 1 mg Documented by: Magnesium Hydroxide (Magnesium Hydroxide Susp 30 Ml Udc) 30 ml PO Q12H PRN PRN Reason: Constipation Stop: 10/13/20 20:09 Metoprolol Succinate (Metoprolol Succ 25mg Ext Rel Tab) 25 mg PO QAM [facility] Stop: 10/14/20 08:59 Last Admin: 09/17/20 07:41 Dose: 25 mg Documented by: Miscellaneous Information (Vancomycin Consult Active) 1 ea N/A UD PRN PRN Reason: Consult Stop: 10/13/20 20:09 Montelukast Sodium (Montelukast Sodium 10 Mg Tablet) 10 mg PO HS [facility] Stop: 10/13/20 20:59 Last Admin: 09/16/20 22:18 Dose: 10 mg Documented by: Multivitamins (Multivitamin Tab) 1 tab PO QAM [facility] Stop: 10/14/20 08:59 Last Admin: 09/17/20 07:42 Dose: 1 tab Documented by: Multivitamins/Minerals (Cerovite Adv Formula Tab) 1 tab PO DAILY [facility] Stop: 10/16/20 08:59 Last Admin: 09/17/20 07:40 Dose: 1 tab Documented by: Nystatin (Nystatin Powder 15gm Btl) 1 appln EXT BID [facility] Stop: 10/13/20 20:59 Last Admin: 09/17/20 07:42 Dose: 1 appln Documented by: Ondansetron HCl (Ondansetron Inj 2 Mg/Ml 2 Ml Vial) 4 mg IV Q6H PRN PRN Reason: Nausea Stop: 10/13/20 20:09 Oxycodone HCl (Oxycodone Hcl Ir 5 Mg Tab (Immediate Release)) 5 mg PO Q6H PRN PRN Reason: pain Stop: 09/27/20 20:42 Last Admin: 09/17/20 14:26 Dose: 5 mg Documented by: Pantoprazole Sodium (Pantoprazole 40 Mg Tab) 40 mg PO QAM [facility] Stop: 10/14/20 08:59 Last Admin: 09/17/20 07:40 Dose: 40 mg Documented by: Polyethylene Glycol (Polyethylene (Miralax) 17 Gm Pack) 17 gm PO DAILY PRN PRN Reason: Constipation Stop: 10/13/20 20:09 Polyethylene Glycol (Polyethylene (Miralax) 17 Gm Pack) 17 gm PO QAM [facility] Stop: 10/14/20 08:59 Last Admin: 09/17/20 07:43 Dose: Not Given Documented by: Pregabalin (Pregabalin 150 Mg Cap) 150 mg PO TID [facility] Stop: 10/13/20 20:59 Last Admin: 09/17/20 14:26 Dose: 150 mg Documented by: Simethicone (Simethicone 80 Mg Chew) 80 mg PO Q6H PRN PRN Reason: Gas or Constipation Stop: 10/17/20 15:01 Last Admin: 09/17/20 16:44 Dose: 80 mg Documented by: Simvastatin (Simvastatin 40 Mg Tab) 40 mg PO HS [facility] Stop: 10/13/20 20:59 Last Admin: 09/16/20 22:18 Dose: 40 mg Documented by: Trazodone HCl (Trazodone Hcl 50 Mg Tab) 50 mg PO HS [facility] Stop: 10/13/20 20:59 Last Admin: 09/16/20 22:18 Dose: 50 mg Documented by: Umeclidinium/Vilanterol (Umeclidinium/Vilanterol 62.5/25mcg 7 Puffs/Inhaler) 1 puffs INH DAILY [facility]; Protocol Stop: 10/14/20 08:59 Last Admin: 09/17/20 07:43 Dose: 1 puffs Documented by: (1) COPD (chronic obstructive pulmonary disease) COPD type: unspecified COPD Qualified Code(s): J44.9 - Chronic obstructive pulmonary disease, unspecified
[2020-09-17] MEDS: ACETAMINOPHEN 325 MG TAB PO PRN (17:47)
--- NOTE | 2020-09-17 20:15 | Orthopedic Progress Note ---
Date of Service September 17, 2020 Assessment & Plan Admission and Anticipated Discharge Date Admission Date: September 14, 2020 Subjective Patient has a complicated situation. Total knee and total hip with periprosthe tic fracture IM nail and a plate. She has a wound problem. Unfortunately the wound has not healed since surgery and that communicates to the plate area. This raises the risk of deeper contamination if not infection. I have contacted Dr. Baez at [facility] as he was the traumatologist to help Jaky out initially. I think that we have taken this is far as we can locally. I discussed the situation and Dr. Neal Joshi has agreed to accept her back in transfer for further evaluation and treatment as necessary. I discussed this with Dr. Hurley so that transfer could be arranged back to [facility]. I think she should likely go medicine service to medicine service with Dr. Neal Joshi consulting. I will be happy to help in any way. I discussed these findings with Jaky as well. I did see her postoperatively. The wound VAC was working appropriately. Her foot was warm with good capillary refill and a trace dorsalis pedis pulse. She had grossly intact sensation but generally diminished. She can flex and extend the ankle and toes without difficulty. Her vital signs were stable. Results & Data ([facility]) Vital Signs (Past 12 Hours) Vital Signs Temp Pulse Pulse Resp BP BP Pulse Ox 09/17/20 19:52 36.5 C 62 18 105/58 L 97 09/17/20 15:35 36.6 C 81 18 110/53 L 91 09/17/20 12:51 36.8 C 69 20 122/63 95 09/17/20 11:30 36.6 C 64 121/66 96 09/17/20 11:10 69 17 130/52 L 96 09/17/20 11:00 37.3 C 74 15 126/83 96 09/17/20 10:50 77 17 147/44 H 96 09/17/20 10:40 85 14 142/65 H 96 09/17/20 10:32 36 C L 83 17 152/52 H 98 09/17/20 09:14 36.8 C 67 18 138/60 98
[2020-09-17] MEDS: AMITRIPTYLINE HCL 10 MG TAB PO SCH (21:15)
[2020-09-17] MEDS: ENOXAPARIN INJ 40 MG/0.4 ML SYR SQ SCH (21:15)
[2020-09-17] MEDS: MONTELUKAST SODIUM 10 MG TABLET PO SCH (21:15)
[2020-09-17] MEDS: traZODone HCL 50 MG TAB PO SCH (21:15)
[2020-09-17] MEDS: SIMVASTATIN 40 MG TAB PO SCH (21:15)
[2020-09-18] MEDS: CEFEPIME 2,000 MG in SYRINGE 0 ML IV SCH ×3 (00:36→23:57)
[2020-09-18] MEDS ORDERED: MICONAZOLE NITRATE POWDER 43 GM EXT PRN (03:58)
[2020-09-18] MEDS: LORazepam 1 MG TAB PO PRN (04:39)
[2020-09-18] MEDS: oxyCODONE HCL IR 5 MG TAB (IMMEDIATE RELEASE) PO PRN ×3 (05:28→21:28)
[2020-09-18] MEDS ORDERED: VANCOMYCIN HCL 1,000 MG/270 ML BAG IV SCH (06:00)
[2020-09-18] MEDS: SIMETHICONE 80 MG CHEW PO PRN (08:51)
[2020-09-18] MEDS: CITALOPRAM 20 MG TAB PO SCH (08:52)
[2020-09-18] MEDS: METOPROLOL SUCC 25MG EXT REL TAB PO SCH (08:52)
[2020-09-18] MEDS: ASPIRIN 81 MG ECTAB PO SCH (08:52)
[2020-09-18] MEDS: FUROSEMIDE 20 MG TAB PO SCH (08:52)
[2020-09-18] MEDS: MULTIVITAMIN TAB PO SCH (08:52)
[2020-09-18] MEDS: DOCUSATE SODIUM 100 MG CAP PO SCH ×2 (08:53→21:16)
[2020-09-18] MEDS: ASCORBIC ACID 500 MG TAB PO SCH ×2 (08:53→21:17)
[2020-09-18] MEDS: UMECLIDINIUM/VILANTEROL 62.5/25MCG 7 PUFFS/INHALER INH SCH (08:53)
[2020-09-18] MEDS: CEROVITE ADV FORMULA TAB PO SCH (08:53)
[2020-09-18] MEDS: lisinopril 5 MG TAB PO SCH (08:53)
[2020-09-18] MEDS: PANTOprazole 40 MG TAB PO SCH (08:53)
[2020-09-18] MEDS: FLUTICASONE FUROATE 200MCG 14 PUFFS/INHALER INH SCH (08:54)
[2020-09-18] MEDS: POLYETHYLENE (MIRALAX) 17 GM PACK PO SCH ×2 (08:54→21:23)
[2020-09-18] MEDS: FLUTICASONE PROPIONATE NA SPR 16 GM BTL PRN (08:54)
[2020-09-18] MEDS: NYSTATIN POWDER 15GM BTL EXT SCH ×2 (08:55→21:18)
[2020-09-18] MEDS: PREGABALIN 150 MG CAP PO SCH ×3 (08:59→21:23)
[2020-09-18] MEDS: ENOXAPARIN INJ 40 MG/0.4 ML SYR SQ SCH ×2 (08:59→21:17)
[2020-09-18 10:00] LABS: Basophils # (auto) 0.02 K/uL (0-0.2); Basophils % (auto) 0.4 %; Eosinophils # (auto) 0.23 K/uL (0-0.5); Eosinophils % (auto) 4.3 %; Hematocrit (blood only) 27.7 % (37-47); Hemoglobin 8.6 g/dL (12.0-16.0); Immature Granulocytes # (auto) 0.01 K/uL (0.00-0.02); Immature Granulocytes % (auto) 0.2 %; Lymphocytes # (auto) 1.22 K/uL (1.2-3.4); Lymphocytes % (auto) 22.6 %; Mean Platelet Volume 10.2 fL (7.4-10.4); Monocytes # (auto) 0.38 K/uL (0.11-0.59); Neutrophils # (auto) 3.55 K/uL (1.4-6.5); Neutrophils % (auto) 65.5 %; Platelet Count 183 K/uL (130-400); RDW Coefficient of Variation 14.9 % (11.5-14.5); RDW Standard Deviation 54.9 fL (36.4-46.3); Red Blood Count 2.77 M/uL (4.2-5.4); White Blood Count 5.41 K/uL (4.8-10.8)
[2020-09-18 10:21] LABS: Calcium 9.1 mg/dl (8.5-10.1); Creatinine Clr Calc Pharmacy 67.6 ml/min; Est GFR (African American) 64.4; Est GFR (Non-African American) 55.6; Potassium 4.7 mmol/L (3.5-5.1)
--- NOTE | 2020-09-18 11:34 | Hospitalist Progress Note ---
Date of Service September 18, 2020 Assessment & Plan (1) Sepsis: Sepsis on admission 2/2 CAUTI and/or surgical site infection. Resuscitated at this point. Cont broad abx and ongoing investigation. Remains afebrile with normal white cell count Complains of dyspepsia Will try Maalox and Mylanta Condition resolved (2) Cellulitis of right lower extremity: Concern for surgical site infection. Cont current abx. WBAT per patient. Ortho consulted-appreciate input and recommendation Status post incision and drainage of right leg(Knee) wound with application of wound VAC Discussed with the orthopedic surgeon about the ongoing infection in the right knee who is worried about worsening of the infection in the knee joint and discussed the case with orthopedic surgeon Dr. Baez in [facility] yesterday and ask to transfer the patient under the hospitalist service with consultation to Dr. Baez. Discussed with the patient and she is willing to go (3) Post-operative state: Right periprosthetic femoral fracture status post ORIF OF RIGHT KNEE and IM nail in [place] 06/2020 Patient with loosened screw and non wound healing requiring wound and hardware revision on 09/[address] Tobar Now with increased redness and warmth to incision site Status post incision and drainage of the right knee wound with application of wound VAC (4) Acute on chronic diastolic CHF (congestive heart failure): Lasix given IV with improvement. Improved and at baseline oxygen needs with h/o COPD. She will switch to oral home Lasix in am. (5) Catheter-associated urinary tract infection: Passed TOV and hernandez is out. Would only use Hernandez temporarily perioperatively and would not let it sit there long-term. Cont current antibiotics. Has been having incontinence and the patient wants to have a Hernandez catheter in place We will put Hernandez before transfer (6) Myoclonus: Recent change in narcotic therapy from dilaudid to oxycodone with a questionable decrease in Ativan at the facility. Myoclonus has resolved. Per neurology input, an EEG was performed and normal. No further workup at this time. (7) Elevated troponin: Chronically elevated in past No chest pain or shortness of breath, EKG without ST change Repeat troponin Possibly in setting of mild CHF which is now compensated although patient is physically deconditioned. TTE confirmed no abnormal wall motion with normal LV 60-65% and Grade 2 DD with moderate . No further workup at this time. (8) Hypertension: Blood pressure on lower side on admission Continue metoprolol, restart lisinopril (9) CKD (chronic kidney disease) stage 3, GFR 30-59 ml/min: around baseline. (10) COPD (chronic obstructive pulmonary disease): Chronic hypoxic respiratory failure on 2 L of O2 No acute exacerbation Continue Trelegy, as needed nebs (11) Anxiety: Ativan PRN, citalopram daily. (12) Depression: Ativan PRN, citalopram daily. (13) Anemia: H&H 9.0 and 29.0 Prior to 2 recent procedures hemoglobin was 13.5 on 07/13/2020 so this is likely related to expected post-surgical blood loss. Cont to monitor. (14) Morbid obesity: BMI 46.7 Encourage lifestyle and diet modifications (15) DVT prophylaxis: SQ Lovenox twice daily secondary to weight Dispo: Medical telemetry DNR/DNI Admission and Anticipated Discharge Date Admission Date: September 14, 2020 Subjective 09/17/2020 The patient was seen and examined in medical telemetry unit She is status post incision and drainage of right leg wound with application of wound VAC Complains of lots of abdominal distention and gas but has a bowel movement y No nausea or vomiting and no other significant symptoms 09/18/2020 The patient was seen and examined in medical telemetry unit She complains of burning in the right knee joint She has incontinence and burning during urination and wants to have a Hernandez catheter Denies any fever and/or chills or any significant pain Discussed with the hospitalist and Dr. Neal Joshi in [facility] and the patient will be transferred to [facility] under care of Dr. Neal Joshi. Review of Systems Review of Systems: All systems reviewed and are unremarkable except as noted below Musculoskeletal: + joint pain (Right knee pain) Physical Exam Physical Exam: Lying in bed with minimal distress due to right knee burning pain Constitutional: well developed, well nourished and + morbidly obese; not ill appearing Eyes: PERRL, conjunctivae normal, anicteric sclerae ENMT: external ear and nose normal, oropharynx normal Neck: trachea midline, no thyromegaly Respiratory: + respiratory distress (Feels distress but saturation remains normal) Auscultation: lungs clear to auscultation bilaterally Cardiovascular: Rate/Rhythm: regular rate and regular rhythm Heart Sounds: no murmur Extremities: + edema (Trace edema bilaterally) Gastrointestinal (Abdomen): Inspection/Auscultation: + abdomen distended and normal bowel sounds Percussion/Palpation: abdomen soft; abdomen nontender Musculoskeletal: Right knee joint has a wound VAC placed in situ Lymphatic: no cervical or axillary lymphadenopathy Results & Data Results & Data ([facility]) Vital Signs (Past 12 Hours) Vital Signs Temp Pulse Pulse Resp BP Pulse Ox 09/18/20 07:52 36.7 C 70 18 100/57 L 91 09/18/20 04:00 36.7 C 69 18 114/64 96 09/18/20 00:49 61 09/17/20 23:27 36.6 C 65 18 101/65 93 Laboratory Results Short CBC 09/18/20 Range/Units 09:51 WBC 5.41 (4.8-10.8) K/uL Hgb 8.6 L (12.0-16.0) g/dL Hct 27.7 L (37-47) % Plt Count 183 (130-400) K/uL BMP 09/18/20 09:51 Sodium 136 Potassium 4.7 Chloride 101 Carbon Dioxide 33 H BUN 21 H Creatinine 1.01 Glucose 118 H Calcium 9.1 Medications Administered Current Inpatient Medications Acetaminophen (Acetaminophen 325 Mg Tab) 650 mg PO Q4H PRN PRN Reason: Pain or Fever Stop: 10/13/20 20:09 Last Admin: 09/17/20 17:47 Dose: 650 mg Documented by: Al Hydrox/Mg Hydrox/Simethicone (Aluminum/Magnesium Susp 30 Ml Udc) 15 ml PO Q4H PRN PRN Reason: Dyspepsia Stop: 10/13/20 20:09 Albuterol (Albut/Ipratrop 3mg/0.5mg Neb 3 Ml Vial) 3 ml INH Q4H PRN PRN Reason: Shortness Of Breath Or Wheezing Stop: 10/13/20 20:09 Albuterol (Albut/Ipratrop 3mg/0.5mg Neb 3 Ml Vial) 3 ml NEB QIDR PRN PRN Reason: SOB/wheezing Stop: 10/16/20 18:59 Amitriptyline HCl (Amitriptyline Hcl 10 Mg Tab) 10 mg PO HS [facility] Stop: 10/13/20 20:59 Last Admin: 09/17/20 21:15 Dose: 10 mg Documented by: Ascorbic Acid (Ascorbic Acid 500 Mg Tab) 500 mg PO BID [facility] Stop: 10/13/20 20:59 Last Admin: 09/18/20 08:53 Dose: 500 mg Documented by: Aspirin (Aspirin 81 Mg Ectab) 81 mg PO QAM [facility] Stop: 10/14/20 08:59 Last Admin: 09/18/20 08:52 Dose: 81 mg Documented by: Citalopram Hydrobromide (Citalopram 20 Mg Tab) 10 mg PO QAM [facility] Stop: 10/14/20 08:59 Last Admin: 09/18/20 08:52 Dose: 10 mg Documented by: Docusate Sodium (Docusate Sodium 100 Mg Cap) 100 mg PO BID [facility] Stop: 10/13/20 20:59 Last Admin: 09/18/20 08:53 Dose: 100 mg Documented by: Enoxaparin Sodium (Enoxaparin Inj 40 Mg/0.4 Ml Syr) 40 mg SQ Q12H [facility] Stop: 10/13/20 21:59 Last Admin: 09/18/20 08:59 Dose: 40 mg Documented by: Ergocalciferol (Ergocalciferol 50,000 Units 1250 Mcg Cap) 50,000 units PO Mo@0900 [facility] Stop: 10/15/20 08:59 Last Admin: 09/15/20 09:18 Dose: 50,000 units Documented by: Fluticasone Furoate (Fluticasone Furoate 200mcg 14 Puffs/Inhaler) 1 puffs INH DAILY [facility]; Protocol Stop: 10/14/20 08:59 Last Admin: 09/18/20 08:54 Dose: 1 puffs Documented by: Fluticasone Propionate (Fluticasone Propionate Na Spr 16 Gm Btl) 2 sprays NA DAILY PRN PRN Reason: Allergy Symptoms Stop: 10/13/20 20:09 Last Admin: 09/18/20 08:54 Dose: 2 sprays Documented by: Furosemide (Furosemide 20 Mg Tab) 20 mg PO QAM [facility] Stop: 10/16/20 08:59 Last Admin: 09/18/20 08:52 Dose: 20 mg Documented by: Cefepime HCl 2,000 mg/ Syringe 20 mls @ 5 mls/min IV Q12H [facility] Stop: 09/25/20 11:59 Last Admin: 09/18/20 00:36 Dose: 5 mls/min Documented by: Vancomycin HCl 1,250 mg/ (Sodium Chloride) 275 mls @ 200 mls/hr IV DAILY@1200 [facility] Stop: 09/25/20 11:59 Lisinopril (Lisinopril 5 Mg Tab) 5 mg PO QAM [facility] Stop: 10/16/20 08:59 Last Admin: 09/18/20 08:53 Dose: 5 mg Documented by: Lorazepam (Lorazepam 1 Mg Tab) 1 mg PO BID PRN PRN Reason: Anxiety Stop: 10/13/20 20:42 Last Admin: 09/18/20 04:39 Dose: 1 mg Documented by: Magnesium Hydroxide (Magnesium Hydroxide Susp 30 Ml Udc) 30 ml PO Q12H PRN PRN Reason: Constipation Stop: 10/13/20 20:09 Metoprolol Succinate (Metoprolol Succ 25mg Ext Rel Tab) 25 mg PO QAM [facility] Stop: 10/14/20 08:59 Last Admin: 09/18/20 08:52 Dose: 25 mg Documented by: Miconazole Nitrate (Miconazole Nitrate Powder 43 Gm) 1 appln EXT PRN PRN PRN Reason: Affected Skin Folds Stop: 10/18/20 03:57 Miscellaneous Information (Vancomycin Consult Active) 1 ea N/A UD PRN PRN Reason: Consult Stop: 10/13/20 20:09 Montelukast Sodium (Montelukast Sodium 10 Mg Tablet) 10 mg PO HS [facility] Stop: 10/13/20 20:59 Last Admin: 09/17/20 21:15 Dose: 10 mg Documented by: Multivitamins (Multivitamin Tab) 1 tab PO QAM [facility] Stop: 10/14/20 08:59 Last Admin: 09/18/20 08:52 Dose: 1 tab Documented by: Multivitamins/Minerals (Cerovite Adv Formula Tab) 1 tab PO DAILY [facility] Stop: 10/16/20 08:59 Last Admin: 09/18/20 08:53 Dose: 1 tab Documented by: Nystatin (Nystatin Powder 15gm Btl) 1 appln EXT BID [facility] Stop: 10/13/20 20:59 Last Admin: 09/18/20 08:55 Dose: 1 appln Documented by: Ondansetron HCl (Ondansetron Inj 2 Mg/Ml 2 Ml Vial) 4 mg IV Q6H PRN PRN Reason: Nausea Stop: 10/13/20 20:09 Oxycodone HCl (Oxycodone Hcl Ir 5 Mg Tab (Immediate Release)) 5 mg PO Q6H PRN PRN Reason: pain Stop: 09/27/20 20:42 Last Admin: 09/18/20 05:28 Dose: 5 mg Documented by: Pantoprazole Sodium (Pantoprazole 40 Mg Tab) 40 mg PO QAM [facility] Stop: 10/14/20 08:59 Last Admin: 09/18/20 08:53 Dose: 40 mg Documented by: Polyethylene Glycol (Polyethylene (Miralax) 17 Gm Pack) 17 gm PO DAILY PRN PRN Reason: Constipation Stop: 10/13/20 20:09 Polyethylene Glycol (Polyethylene (Miralax) 17 Gm Pack) 17 gm PO QAM [facility] Stop: 10/14/20 08:59 Last Admin: 09/18/20 08:54 Dose: Not Given Documented by: Pregabalin (Pregabalin 150 Mg Cap) 150 mg PO TID [facility] Stop: 10/13/20 20:59 Last Admin: 09/18/20 08:59 Dose: 150 mg Documented by: Simethicone (Simethicone 80 Mg Chew) 80 mg PO Q6H PRN PRN Reason: Gas or Constipation Stop: 10/17/20 15:01 Last Admin: 09/18/20 08:51 Dose: 80 mg Documented by: Simvastatin (Simvastatin 40 Mg Tab) 40 mg PO [facility] Stop: 10/13/20 20:59 Last Admin: 09/17/20 21:15 Dose: 40 mg Documented by: Trazodone HCl (Trazodone Hcl 50 Mg Tab) 50 mg PO [facility] Stop: 10/13/20 20:59 Last Admin: 09/17/20 21:15 Dose: 50 mg Documented by: Umeclidinium/Vilanterol (Umeclidinium/Vilanterol 62.5/25mcg 7 Puffs/Inhaler) 1 puffs INH DAILY [facility]; Protocol Stop: 10/14/20 08:59 Last Admin: 09/18/20 08:53 Dose: 1 puffs Documented by: (1) COPD (chronic obstructive pulmonary disease) COPD type: unspecified COPD Qualified Code(s): J44.9 - Chronic obstructive pulmonary disease, unspecified
--- NOTE | 2020-09-18 12:03 | Orthopedic Progress Note ---
Date of Service September 18, 2020 Assessment & Plan (1) Non-healing surgical wound: Plan is to continue the wound vac. If she is still here tomorrow we will make arrangements with wound care nurse to change the wound vac. Pending transfer to [place] today once bed available. Will continue to follow while here in the hospital. Discussed with nursing her request for a "nerve pill" and a hernandez. Admission and Anticipated Discharge Date Admission Date: September 14, 2020 Subjective Patient doing well. States that her "nerves are bad". She also have burning with urination. Requesting Hernandez to be put back in. Physical Exam Physical Exam: Wound vac right thigh wound functioning, minimal drainage. NO distal edema. No effusion right knee. Able to do gentle Active ROM right knee. Results & Data ([facility]) Vital Signs (Past 12 Hours) Vital Signs Temp Pulse Pulse Resp BP Pulse Ox 09/18/20 11:34 36.9 C 59 L 18 124/67 96 09/18/20 07:52 36.7 C 70 18 100/57 L 91 09/18/20 04:00 36.7 C 69 18 114/64 96 09/18/20 00:49 61
[2020-09-18] MEDS ORDERED: LORazepam 0.5 MG TAB PO STA (12:21)
[2020-09-18] MEDS: VANCOMYCIN HCL 1,250 MG in SODIUM CHLORIDE 0.9% 250 ML IV SCH (12:39)
--- NOTE | 2020-09-18 15:21 | Pharmacy Report ---
Pharmacy Abx Dose Short Note - Date of Service September 18, 2020 - Assessment & Plan Assessment 70 year old F receiving vancomycin/cefepime for treatment of cellulitis/Right knee infection/ Post I&D on the , culture from R Knee growing MRSA. Urine Culture growing C. amalonaticus and Klebsiella. Pending transfer to [place] Day # 6 of antimicrobial therapy. Plan Vancomycin * Random level of 19.6 mcg/mL is therapeutic; dose adjusted after previous high trough, level to ensure dose appropriate to give * Continue dose of 1250 mg q24H * Goal trough level 15-20 mcg/mL * Trough currently not ordered, will order in 2-3 days or as needed with renal function changes Pharmacy will continue to follow and will adjust dose/frequency as necessary. Thank you.
[2020-09-18] MEDS: traZODone HCL 50 MG TAB PO SCH (21:15)
[2020-09-18] MEDS: SIMVASTATIN 40 MG TAB PO SCH (21:15)
[2020-09-18] MEDS: MONTELUKAST SODIUM 10 MG TABLET PO SCH (21:16)
[2020-09-18] MEDS: AMITRIPTYLINE HCL 10 MG TAB PO SCH (21:17)
[2020-09-19] MEDS: oxyCODONE HCL IR 5 MG TAB (IMMEDIATE RELEASE) PO PRN ×2 (04:16→10:33)
[2020-09-19] MEDS: LORazepam 1 MG TAB PO PRN (04:16)
[2020-09-19 08:06] LABS: Creatinine Clr Calc Pharmacy 61.6 ml/min; Est GFR (African American) 57.5; Est GFR (Non-African American) 49.6
[2020-09-19] MEDS: DOCUSATE SODIUM 100 MG CAP PO SCH (08:38)
[2020-09-19] MEDS: ENOXAPARIN INJ 40 MG/0.4 ML SYR SQ SCH (08:38)
[2020-09-19] MEDS: UMECLIDINIUM/VILANTEROL 62.5/25MCG 7 PUFFS/INHALER INH SCH (08:38)
[2020-09-19] MEDS: FLUTICASONE FUROATE 200MCG 14 PUFFS/INHALER INH SCH (08:39)
[2020-09-19] MEDS: CITALOPRAM 20 MG TAB PO SCH (08:43)
[2020-09-19] MEDS: NYSTATIN POWDER 15GM BTL EXT SCH (08:43)
[2020-09-19] MEDS: PANTOprazole 40 MG TAB PO SCH (08:43)
[2020-09-19] MEDS: CEROVITE ADV FORMULA TAB PO SCH (08:43)
[2020-09-19] MEDS: FUROSEMIDE 20 MG TAB PO SCH (08:43)
[2020-09-19] MEDS: ASCORBIC ACID 500 MG TAB PO SCH (08:43)
[2020-09-19] MEDS: lisinopril 5 MG TAB PO SCH (08:43)
[2020-09-19] MEDS: METOPROLOL SUCC 25MG EXT REL TAB PO SCH (08:43)
[2020-09-19] MEDS: ASPIRIN 81 MG ECTAB PO SCH (08:43)
[2020-09-19] MEDS: PREGABALIN 150 MG CAP PO SCH ×2 (08:46→14:33)
[2020-09-19] MEDS: MULTIVITAMIN TAB PO SCH (08:46)
--- NOTE | 2020-09-19 09:14 | Orthopedic Progress Note ---
Date of Service September 19, 2020 Assessment & Plan (1) Non-healing surgical wound: Continue Wound vac, wound vac changed with [facility] today. Will continue wound vac dressings as long as patient is here. Continue Transfer to [place]. When patient has bed available there, please clamp wound vac dressing for transfer. All questions answered, she understands and agrees with the plan. Admission and Anticipated Discharge Date Admission Date: September 14, 2020 Subjective Patient doing well, states that she's shaking too much from her pain medications, she would like switched to po Dilaudid, as she doesn't shake with that. Physical Exam Physical Exam: Wound vac in place right knee - functioning. Actively able to SLR right lower extremity and right knee without pain. Mild distal edema. No calf tenderness. Results & Data ([facility]) Vital Signs (Past 12 Hours) Vital Signs Temp Pulse Pulse Pulse Resp BP Pulse Ox 09/19/20 08:05 36.9 C 62 20 114/62 94 09/19/20 07:36 57 L 09/19/20 04:00 36.9 C 72 18 121/62 92 09/18/20 23:00 36.9 C 64 18 135/64 95
[2020-09-19] MEDS: SIMETHICONE 80 MG CHEW PO PRN (10:42)
--- NOTE | 2020-09-19 11:57 | Hospitalist Progress Note ---
Date of Service September 19, 2020 Assessment & Plan (1) Sepsis: Sepsis on admission 2/2 CAUTI and/or surgical site infection. Resuscitated at this point. Cont broad abx and ongoing investigation. Remains afebrile with normal white cell count Has been on intravenous cefepime and vancomycin Complains of dyspepsia Will try Maalox and Mylanta Condition resolved (2) Cellulitis of right lower extremity: Concern for surgical site infection. Cont current abx. WBAT per patient. Ortho consulted-appreciate input and recommendation Status post incision and drainage of right leg(Knee) wound with application of wound VAC Discussed with the orthopedic surgeon about the ongoing infection in the right knee who is worried about worsening of the infection in the knee joint and discussed the case with orthopedic surgeon Dr. Baez in [facility] yesterday and ask to transfer the patient under the hospitalist service with consultation to Dr. Baez. Discussed with the patient and she is willing to go Continue current antibiotics with cefepime and vancomycin (3) Post-operative state: Right periprosthetic femoral fracture status post ORIF OF RIGHT KNEE and IM nail in [place] 06/2020 Patient with loosened screw and non wound healing requiring wound and hardware revision on 09/[address] Tobar Now with increased redness and warmth to incision site Status post incision and drainage of the right knee wound with application of wound VAC Appreciate Ortho input and recommendation (4) Acute on chronic diastolic CHF (congestive heart failure): Lasix given IV with improvement. Improved and at baseline oxygen needs with h/o COPD. She will switch to oral home Lasix in am. (5) Catheter-associated urinary tract infection: Passed TOV and hernandez is out. Would only use Hernandez temporarily perioperatively and would not let it sit there long-term. Cont current antibiotics. Has been having incontinence and the patient wants to have a Hernandez catheter in place Has been placed Hernandez catheter yesterday (6) Myoclonus: Recent change in narcotic therapy from dilaudid to oxycodone with a questionable decrease in Ativan at the facility. Myoclonus has resolved. Per neurology input, an EEG was performed and normal. No further workup at this time. (7) Elevated troponin: Chronically elevated in past No chest pain or shortness of breath, EKG without ST change Repeat troponin Possibly in setting of mild CHF which is now compensated although patient is physically deconditioned. TTE confirmed no abnormal wall motion with normal LV 60-65% and Grade 2 DD with moderate . No further workup at this time. (8) Hypertension: Blood pressure on lower side on admission Continue metoprolol, restart lisinopril (9) CKD (chronic kidney disease) stage 3, GFR 30-59 ml/min: around baseline. (10) COPD (chronic obstructive pulmonary disease): Chronic hypoxic respiratory failure on 2 L of O2 No acute exacerbation Continue Trelegy, as needed nebs (11) Anxiety: Ativan PRN, citalopram daily. (12) Depression: Ativan PRN, citalopram daily. (13) Anemia: H&H 9.0 and 29.0 Prior to 2 recent procedures hemoglobin was 13.5 on 07/13/2020 so this is likely related to expected post-surgical blood loss. Cont to monitor. (14) Morbid obesity: BMI 46.7 Encourage lifestyle and diet modifications (15) DVT prophylaxis: SQ Lovenox twice daily secondary to weight Dispo: Medical telemetry DNR/DNI Awaiting bed and transfer Admission and Anticipated Discharge Date Admission Date: September 14, 2020 Subjective 09/17/2020 The patient was seen and examined in medical telemetry unit She is status post incision and drainage of right leg wound with application of wound VAC Complains of lots of abdominal distention and gas but has a bowel movement yesterday No nausea or vomiting and no other significant symptoms 09/18/2020 The patient was seen and examined in medical telemetry unit She complains of burning in the right knee joint She has incontinence and burning during urination and wants to have a Hernandez catheter Denies any fever and/or chills or any significant pain Discussed with the hospitalist and Dr. Neal Joshi in [facility] and the patient will be transferred to [facility] under care of Dr. Neal Joshi. 09/19/2020 The patient was seen and examined in medical telemetry unit She complains of some pain in the right knee otherwise no other significant symptoms She has been waiting to be transferred to [facility] Review of Systems Review of Systems: All systems reviewed and are unremarkable except as noted below Gastrointestinal: + bloating; no nausea and no vomiting Musculoskeletal: + joint pain (Right knee pain) Physical Exam Physical Exam: Lying in bed with minimal distress due to right knee burning pain Constitutional: well developed, well nourished and + morbidly obese; not ill appearing Eyes: PERRL, conjunctivae normal, anicteric sclerae ENMT: external ear and nose normal, oropharynx normal Neck: trachea midline, no thyromegaly Respiratory: + respiratory distress (Feels distress but saturation remains normal) Auscultation: lungs clear to auscultation bilaterally Cardiovascular: Rate/Rhythm: regular rate and regular rhythm Heart Sounds: no murmur Extremities: + edema (Trace edema bilaterally) Gastrointestinal (Abdomen): Inspection/Auscultation: + abdomen distended and normal bowel sounds Percussion/Palpation: abdomen soft; abdomen nontender Musculoskeletal: Right knee pain and status post I&D. Neurologic: Alert, awake and oriented x3. Generally weak Lymphatic: no cervical or axillary lymphadenopathy Results & Data Results & Data ([facility]) Vital Signs (Past 12 Hours) Vital Signs Temp Pulse Pulse Pulse Resp BP Pulse Ox 09/19/20 08:05 36.9 C 62 20 114/62 94 09/19/20 07:36 57 L 09/19/20 04:00 36.9 C 72 18 121/62 92 Laboratory Results BMP 09/19/20 06:55 Creatinine 1.11 Medications Administered Current Inpatient Medications Acetaminophen (Acetaminophen 325 Mg Tab) 650 mg PO Q4H PRN PRN Reason: Pain or Fever Stop: 10/13/20 20:09 Last Admin: 09/17/20 17:47 Dose: 650 mg Documented by: Al Hydrox/Mg Hydrox/Simethicone (Aluminum/Magnesium Susp 30 Ml Udc) 15 ml PO Q4H PRN PRN Reason: Dyspepsia Stop: 10/13/20 20:09 Albuterol (Albut/Ipratrop 3mg/0.5mg Neb 3 Ml Vial) 3 ml INH Q4H PRN PRN Reason: Shortness Of Breath Or Wheezing Stop: 10/13/20 20:09 Albuterol (Albut/Ipratrop 3mg/0.5mg Neb 3 Ml Vial) 3 ml NEB QIDR PRN PRN Reason: SOB/wheezing Stop: 10/16/20 18:59 Amitriptyline HCl (Amitriptyline Hcl 10 Mg Tab) 10 mg PO HS ROBERT Stop: 10/13/20 20:59 Last Admin: 09/18/20 21:17 Dose: 10 mg Documented by: Ascorbic Acid (Ascorbic Acid 500 Mg Tab) 500 mg PO BID [facility] Stop: 10/13/20 20:59 Last Admin: 09/19/20 08:43 Dose: 500 mg Documented by: Aspirin (Aspirin 81 Mg Ectab) 81 mg PO QAM [facility] Stop: 10/14/20 08:59 Last Admin: 09/19/20 08:43 Dose: 81 mg Documented by: Citalopram Hydrobromide (Citalopram 20 Mg Tab) 10 mg PO QAM [facility] Stop: 10/14/20 08:59 Last Admin: 09/19/20 08:43 Dose: 10 mg Documented by: Docusate Sodium (Docusate Sodium 100 Mg Cap) 100 mg PO BID [facility] Stop: 10/13/20 20:59 Last Admin: 09/19/20 08:38 Dose: 100 mg Documented by: Enoxaparin Sodium (Enoxaparin Inj 40 Mg/0.4 Ml Syr) 40 mg SQ Q12H [facility] Stop: 10/13/20 21:59 Last Admin: 09/19/20 08:38 Dose: 40 mg Documented by: Ergocalciferol (Ergocalciferol 50,000 Units 1250 Mcg Cap) 50,000 units PO Mo@0900 [facility] Stop: 10/15/20 08:59 Last Admin: 09/15/20 09:18 Dose: 50,000 units Documented by: Fluticasone Furoate (Fluticasone Furoate 200mcg 14 Puffs/Inhaler) 1 puffs INH DAILY [facility]; Protocol Stop: 10/14/20 08:59 Last Admin: 09/19/20 08:39 Dose: 1 puffs Documented by: Fluticasone Propionate (Fluticasone Propionate Na Spr 16 Gm Btl) 2 sprays NA DAILY PRN PRN Reason: Allergy Symptoms Stop: 10/13/20 20:09 Last Admin: 09/18/20 08:54 Dose: 2 sprays Documented by: Furosemide (Furosemide 20 Mg Tab) 20 mg PO QAM [facility] Stop: 10/16/20 08:59 Last Admin: 09/19/20 08:43 Dose: 20 mg Documented by: Hydromorphone HCl (Hydromorphone Hcl 2 Mg Tab) 2 mg PO Q6H PRN PRN Reason: Pain Stop: 10/03/20 11:16 Cefepime HCl 2,000 mg/ Syringe 20 mls @ 5 mls/min IV Q12H [facility] Stop: 09/25/20 11:59 Last Admin: 09/18/20 23:57 Dose: 5 mls/min Documented by: Vancomycin HCl 1,250 mg/ (Sodium Chloride) 275 mls @ 200 mls/hr IV DAILY@1200 [facility] Stop: 09/25/20 11:59 Last Infusion: 09/19/20 11:20 Dose: Infused Documented by: Lisinopril (Lisinopril 5 Mg Tab) 5 mg PO QAM [facility] Stop: 10/16/20 08:59 Last Admin: 09/19/20 08:43 Dose: 5 mg Documented by: Lorazepam (Lorazepam 1 Mg Tab) 1 mg PO BID PRN PRN Reason: Anxiety Stop: 10/13/20 20:42 Last Admin: 09/19/20 04:16 Dose: 1 mg Documented by: Magnesium Hydroxide (Magnesium Hydroxide Susp 30 Ml Udc) 30 ml PO Q12H PRN PRN Reason: Constipation Stop: 10/13/20 20:09 Metoprolol Succinate (Metoprolol Succ 25mg Ext Rel Tab) [facility] Stop: 10/14/20 08:59 Last Admin: 09/19/20 08:43 Dose: 25 mg Documented by: Miconazole Nitrate (Miconazole Nitrate Powder 43 Gm) 1 appln EXT PRN PRN PRN Reason: Affected Skin Folds Stop: 10/18/20 03:57 Miscellaneous Information (Vancomycin Consult Active) 1 ea N/A UD PRN PRN Reason: Consult Stop: 10/13/20 20:09 Montelukast Sodium (Montelukast Sodium 10 Mg Tablet) 10 mg PO HS [facility] Stop: 10/13/20 20:59 Last Admin: 09/18/20 21:16 Dose: 10 mg Documented by: Multivitamins (Multivitamin Tab) 1 tab PO QAM [facility] Stop: 10/14/20 08:59 Last Admin: 09/19/20 08:46 Dose: 1 tab Documented by: Multivitamins/Minerals (Cerovite Adv Formula Tab) 1 tab PO DAILY [facility] Stop: 10/16/20 08:59 Last Admin: 09/19/20 08:43 Dose: 1 tab Documented by: Nystatin (Nystatin Powder 15gm Btl) 1 appln EXT BID ROBERT Stop: 10/13/20 20:59 Last Admin: 09/19/20 08:43 Dose: 1 appln Documented by: Ondansetron HCl (Ondansetron Inj 2 Mg/Ml 2 Ml Vial) 4 mg IV Q6H PRN PRN Reason: Nausea Stop: 10/13/20 20:09 Last Admin: 09/18/20 13:28 Dose: 4 mg Documented by: Pantoprazole Sodium (Pantoprazole 40 Mg Tab) 40 mg PO QAM [facility] Stop: 10/14/20 08:59 Last Admin: 09/19/20 08:43 Dose: 40 mg Documented by: Polyethylene Glycol (Polyethylene (Miralax) 17 Gm Pack) 17 gm PO DAILY PRN PRN Reason: Constipation Stop: 10/13/20 20:09 Polyethylene Glycol (Polyethylene (Miralax) 17 Gm Pack) 17 gm PO QAM [facility] Stop: 10/14/20 08:59 Last Admin: 09/18/20 21:23 Dose: 17 gm Documented by: Pregabalin (Pregabalin 150 Mg Cap) 150 mg PO TID [facility] Stop: 10/13/20 20:59 Last Admin: 09/19/20 08:46 Dose: 150 mg Documented by: Simethicone (Simethicone 80 Mg Chew) 80 mg PO Q6H PRN PRN Reason: Gas or Constipation Stop: 10/17/20 15:01 Last Admin: 09/19/20 10:42 Dose: 80 mg Documented by: Simvastatin (Simvastatin 40 Mg Tab) 40 mg PO [facility] Stop: 10/13/20 20:59 Last Admin: 09/18/20 21:15 Dose: 40 mg Documented by: Trazodone HCl (Trazodone Hcl 50 Mg Tab) 50 mg PO [facility] Stop: 10/13/20 20:59 Last Admin: 09/18/20 21:15 Dose: 50 mg Documented by: Umeclidinium/Vilanterol (Umeclidinium/Vilanterol 62.5/25mcg 7 Puffs/Inhaler) 1 puffs INH DAILY [facility]; Protocol Stop: 10/14/20 08:59 Last Admin: 09/19/20 08:38 Dose: 1 puffs Documented by: (1) COPD (chronic obstructive pulmonary disease) COPD type: unspecified COPD Qualified Code(s): J44.9 - Chronic obstructive pulmonary disease, unspecified
[2020-09-19] MEDS: VANCOMYCIN HCL 1,250 MG in SODIUM CHLORIDE 0.9% 250 ML IV SCH (12:35)
[2020-09-19] MEDS: HYDROmorphone HCL 2 MG TAB PO PRN ×2 (12:35→17:45)
[2020-09-19] MEDS: CEFEPIME 2,000 MG in SYRINGE 0 ML IV SCH (12:35)
--- NOTE | 2020-09-19 16:48 | Discharge Summary ---
Date of Service September 19, 2020 Admission HPI Per Admitting Provider This is a 70-year-old female who has significant past medical history of severe COPD on chronic 2 L of O2, chronic diastolic CHF, moderate aortic stenosis, HTN, HLD, depression with anxiety, chronic narcotic use, history of PE, morbid obesity, CKD stage III who presents ED secondary to dizziness and shaking x1 day. Of significance patient currently resides at [place] [facility] for acute rehab. Patient has a significant recent medical history of hospitalization at [facility] secondary to mechanical fall at home. Patient sustained a right femur fracture requiring transfer to [place]. In June she underwent ORIF and right IM nail, I&D by Dr. Kaba. She tolerated procedure well and was to discharge to [facility] Unfortunately patient had delayed wound healing and loosened screw and had to undergo wound revision and hardware revision by Dr. David Mills on 09/02. She then returned back to [place] [facility] for further rehab. She presents to us today due to complaints of ill feeling the past 2 days, decreased appetite, upper extremity shaking and tremor and dizziness, "like things are spinning." She denies any recent fever, chills, sweats, presyncope, chest pain, shortness of breath, cough, hemoptysis, nausea, vomiting, abdominal pain, melena or hematochezia. She continues to have a Hernandez catheter in place. She has been participating in PT and overall feels that has been going okay. She admits to increased lower extremity swelling over the past week. After speaking with nursing facility patient had recent change in medications. On 09/03 her chronic Dilaudid had been discontinued. She was taking 1 mg every 4 hours as needed. This was switched to oxycodone 5 or 10 mg every 6 hours as needed for pain. Patient is not happy about this. In ED patient remained hemodynamically stable although had mild elevated temp 37.6 and lower BP of 106/42. Lab work notable for H&H 9.0 and 29.0, platelet 200, sodium 134, K5.1, BUN 34, creatinine 1.14, glucose 116, troponin 0.086. Her urinalysis was consistent with possible infection but she does have chronic Hernandez catheter in place. She was treated empirically with IV Rocephin. Chest x-ray concerning for mild pulmonary vascular congestion. Head CT without acute abnormality. Admission Exam Per Admitting Provider Physical Exam: Constitutional: WD/WN, elderly, female, vitals as above, NAD, sitting up in bed, pleasant, conversing easily Head: Normocephalic, Atraumatic Eyes: PERRL, conjunctivae normal, anicteric sclerae ENMT: external ear and nose normal, oropharynx normal Neck: trachea midline, no thyromegaly normal visual inspection Respiratory: normal respiratory effort, lungs clear to auscultation, no wheeze, rales, rhonchi. Normal insp/exp effort, no accessory muscle use Cardiovascular: RRR, 2/6 CASSI noted RUSB, +2 lower extremity pretibial edema Vessels: no JVD or carotid bruit Chest: normal inspection of chest Abdomen: Obese abdomen, normal bowel sounds, soft, nontender, no hepatosplenomegaly Musculoskeletal: no cyanosis or clubbing, active range of motion x4, right lower extremity lateral thigh incision erythematous, warm, scant white drainage, louis intact Skin: no rashes, warm and dry normal turgor Neurologic: PERRL, EOMI, accommodation nl, no face palsy, no dysarthria CN's II-XI intact bilaterally and moves all extremities Psychiatric: A+Ox3, euthymic affect Lymphatic: no cervical or axillary lymphadenopathy : Hernandez catheter in place draining yellow urine Principal Diagnosis 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, cellulitis, complicated UTI, chronic diastolic heart failure, COPD, hypertension, anxiety/depression Discharge Exam Constitutional well developed, well nourished and + morbidly obese; not ill appearing Eyes PERRL, conjunctivae normal, anicteric sclerae ENMT external ear and nose normal, oropharynx normal Neck trachea midline, no thyromegaly Respiratory + respiratory distress (Feels distress but saturation remains normal) Auscultation: lungs clear to auscultation bilaterally Cardiovascular Rate/Rhythm: regular rate and regular rhythm Heart Sounds: no murmur Extremities: + edema (Trace edema bilaterally) Gastrointestinal (Abdomen) Inspection/Auscultation: + abdomen distended and normal bowel sounds Percussion/Palpation: abdomen soft; abdomen nontender Lymphatic no cervical or axillary lymphadenopathy Discharge Data Allergies Allergy/AdvReac Type Severity Reaction Status Date / Time No Known Allergies Allergy Verified 09/13/20 15:30 Consultations 09/13/20 16:05 ED Decision to Admit Stat 09/13/20 17:22 Consult Orthopedic Surgery Routine 09/14/20 00:41 Consult Neurology Routine 09/15/20 11:54 Consult Infectious Diseases Routine 09/18/20 13:54 Burn CD for patient Routine Procedures Performed Operation Date: 09/17/20 10:15 Actual Procedures p Incision and Drainage of Right Leg Wound With Application of Wound Vac(Right) - Andre Tobar MD Ordered Studies 09/13/20 14:22 CT head/brain wo con Stat 09/13/20 17:33 US venous doppler LE BI Stat Hospital Course (1) Sepsis: Sepsis on admission 2/2 CAUTI and/or surgical site infection. Resuscitated at this point. Cont broad abx and ongoing investigation. Remains afebrile with normal white cell count Has been on intravenous cefepime and vancomycin Complains of dyspepsia Will try Maalox and Mylanta Condition resolved (2) Cellulitis of right lower extremity: Concern for surgical site infection. Cont current abx. WBAT per patient. Ortho consulted-appreciate input and recommendation Status post incision and drainage of right leg(Knee) wound with application of wound VAC Discussed with the orthopedic surgeon about the ongoing infection in the right knee who is worried about worsening of the infection in the knee joint and discussed the case with orthopedic surgeon Dr. Baez in [facility] yesterday and ask to transfer the patient under the hospitalist service with consultation to Dr. Baez. Discussed with the patient and she is willing to go Continue current antibiotics with cefepime and vancomycin (3) Post-operative state: Right periprosthetic femoral fracture status post ORIF OF RIGHT KNEE and IM nail in [place] 06/2020 Patient with loosened screw and non wound healing requiring wound and hardware revision on 09/[address] Tobar Now with increased redness and warmth to incision site Status post incision and drainage of the right knee wound with application of wound VAC Appreciate Ortho input and recommendation (4) Acute on chronic diastolic CHF (congestive heart failure): Lasix given IV with improvement. Improved and at baseline oxygen needs with h/o COPD. She will switch to oral home Lasix in am. (5) Catheter-associated urinary tract infection: Passed TOV and hernandez is out. Would only use Hernandez temporarily perioperatively and would not let it sit there long-term. Cont current antibiotics. Has been having incontinence and the patient wants to have a Hernandez catheter in place Has been placed Hernandez catheter yesterday (6) Myoclonus: Recent change in narcotic therapy from dilaudid to oxycodone with a questionable decrease in Ativan at the facility. Myoclonus has resolved. Per neurology input, an EEG was performed and normal. No further workup at this time. (7) Elevated troponin: Chronically elevated in past No chest pain or shortness of breath, EKG without ST change Repeat troponin Possibly in setting of mild CHF which is now compensated although patient is physically deconditioned. TTE confirmed no abnormal wall motion with normal LV 60-65% and Grade 2 DD with moderate . No further workup at this time. (8) Hypertension: Blood pressure on lower side on admission Continue metoprolol, restart lisinopril (9) CKD (chronic kidney disease) stage 3, GFR 30-59 ml/min: around baseline. (10) COPD (chronic obstructive pulmonary disease): Chronic hypoxic respiratory failure on 2 L of O2 No acute exacerbation Continue Trelegy, as needed nebs (11) Anxiety: Ativan PRN, citalopram daily. (12) Depression: Ativan PRN, citalopram daily. (13) Anemia: H&H 9.0 and 29.0 Prior to 2 recent procedures hemoglobin was 13.5 on 07/13/2020 so this is likely related to expected post-surgical blood loss. Cont to monitor. 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, cellulitis, complicated UTI, chronic diastolic heart failure, COPD, hypertension, anxiety/depression Activity: Resume your previous activity Non-emergency contact: Primary Care Provider Call non-emergency contact if: you have any medication questions and your symptoms worsen Follow-up/Referrals: [facility] [Primary Care Provider] - Diet: Heart Healthy and Low Sodium (2gm) Addtl Attending Provider Instructions: All of her home medications were continued in papers but All of the inpatient medications were continued on transfer as follows: Acetaminophen (Acetaminophen 325 Mg Tab) 650 mg PO Q4H PRN PRN Reason: Pain or Fever Stop: 10/13/20 20:09 Last Admin: 09/17/20 17:47 Dose: 650 mg Documented by: Al Hydrox/Mg Hydrox/Simethicone (Aluminum/Magnesium Susp 30 Ml Udc) 15 ml PO Q4H PRN PRN Reason: Dyspepsia Stop: 10/13/20 20:09 Albuterol (Albut/Ipratrop 3mg/0.5mg Neb 3 Ml Vial) 3 ml INH Q4H PRN PRN Reason: Shortness Of Breath Or Wheezing Stop: 10/13/20 20:09 Albuterol (Albut/Ipratrop 3mg/0.5mg Neb 3 Ml Vial) 3 ml NEB QIDR PRN PRN Reason: SOB/wheezing Stop: 10/16/20 18:59 Amitriptyline HCl (Amitriptyline Hcl 10 Mg Tab) 10 mg PO HS [facility] Stop: 10/13/20 20:59 Last Admin: 09/17/20 21:15 Dose: 10 mg Documented by: Ascorbic Acid (Ascorbic Acid 500 Mg Tab) 500 mg PO BID [facility] Stop: 10/13/20 20:59 Last Admin: 09/18/20 08:53 Dose: 500 mg Documented by: Aspirin (Aspirin 81 Mg Ectab) 81 mg PO QAM [facility] Stop: 10/14/20 08:59 Last Admin: 09/18/20 08:52 Dose: 81 mg Documented by: Citalopram Hydrobromide (Citalopram 20 Mg Tab) 10 mg PO QAM [facility] Stop: 10/14/20 08:59 Last Admin: 09/18/20 08:52 Dose: 10 mg Documented by: Docusate Sodium (Docusate Sodium 100 Mg Cap) 100 mg PO BID [facility] Stop: 10/13/20 20:59 Last Admin: 09/18/20 08:53 Dose: 100 mg Documented by: Enoxaparin Sodium (Enoxaparin Inj 40 Mg/0.4 Ml Syr) 40 mg SQ Q12H [facility] Stop: 10/13/20 21:59 Last Admin: 09/18/20 08:59 Dose: 40 mg Documented by: Ergocalciferol (Ergocalciferol 50,000 Units 1250 Mcg Cap) 50,000 units PO Mo@0900 [facility] Stop: 10/15/20 08:59 Last Admin: 09/15/20 09:18 Dose: 50,000 units Documented by: Fluticasone Furoate (Fluticasone Furoate 200mcg 14 Puffs/Inhaler) 1 puffs INH DAILY [facility]; Protocol Stop: 10/14/20 08:59 Last Admin: 09/18/20 08:54 Dose: 1 puffs Documented by: Fluticasone Propionate (Fluticasone Propionate Na Spr 16 Gm Btl) 2 sprays NA DAILY PRN PRN Reason: Allergy Symptoms Stop: 10/13/20 20:09 Last Admin: 09/18/20 08:54 Dose: 2 sprays Documented by: Furosemide (Furosemide 20 Mg Tab) [facility] Stop: 10/16/20 08:59 Last Admin: 09/18/20 08:52 Dose: 20 mg Documented by: Cefepime HCl 2,000 mg/ Syringe 20 mls @ 5 mls/min IV Q12H [facility] Stop: 09/25/20 11:59 Last Admin: 09/18/20 00:36 Dose: 5 mls/min Documented by: Vancomycin HCl 1,250 mg/ (Sodium Chloride) 275 mls @ 200 mls/hr IV DAILY@1200 [facility] Stop: 09/25/20 11:59 Lisinopril (Lisinopril 5 Mg Tab) [address] [facility] Stop: 10/16/20 08:59 Last Admin: 09/18/20 08:53 Dose: 5 mg Documented by: Lorazepam (Lorazepam 1 Mg Tab) 1 mg PO BID PRN PRN Reason: Anxiety Stop: 10/13/20 20:42 Last Admin: 09/18/20 04:39 Dose: 1 mg Documented by: Magnesium Hydroxide (Magnesium Hydroxide Susp 30 Ml Udc) 30 ml PO Q12H PRN PRN Reason: Constipation Stop: 10/13/20 20:09 Metoprolol Succinate (Metoprolol Succ 25mg Ext Rel Tab) 25 mg [facility] Stop: 10/14/20 08:59 Last Admin: 09/18/20 08:52 Dose: 25 mg Documented by: Miconazole Nitrate (Miconazole Nitrate Powder 43 Gm) 1 appln EXT PRN PRN PRN Reason: Affected Skin Folds Stop: 10/18/20 03:57 Miscellaneous Information (Vancomycin Consult Active) 1 ea N/A UD PRN PRN Reason: Consult Stop: 10/13/20 20:09 Montelukast Sodium (Montelukast Sodium 10 Mg Tablet) 10 mg PO HS [facility] Stop: 10/13/20 20:59 Last Admin: 09/17/20 21:15 Dose: 10 mg Documented by: Multivitamins (Multivitamin Tab) 1 tab PO QAM [facility] Stop: 10/14/20 08:59 Last Admin: 09/18/20 08:52 Dose: 1 tab Documented by: Multivitamins/Minerals (Cerovite Adv Formula Tab) 1 tab PO DAILY [facility] Stop: 10/16/20 08:59 Last Admin: 09/18/20 08:53 Dose: 1 tab Documented by: Nystatin (Nystatin Powder 15gm Btl) 1 appln EXT BID [facility] Stop: 10/13/20 20:59 Last Admin: 09/18/20 08:55 Dose: 1 appln Documented by: Ondansetron HCl (Ondansetron Inj 2 Mg/Ml 2 Ml Vial) 4 mg IV Q6H PRN PRN Reason: Nausea Stop: 10/13/20 20:09 Dilaudid 2 mg PO q6h PRN for Pain Documented by: Pantoprazole Sodium (Pantoprazole 40 Mg Tab) 40 mg PO QAM [facility] Stop: 10/14/20 08:59 Last Admin: 09/18/20 08:53 Dose: 40 mg Documented by: Polyethylene Glycol (Polyethylene (Miralax) 17 Gm Pack) 17 gm PO DAILY PRN PRN Reason: Constipation Stop: 10/13/20 20:09 Polyethylene Glycol (Polyethylene (Miralax) 17 Gm Pack) 17 gm PO QAM [facility] Stop: 10/14/20 08:59 Last Admin: 09/18/20 08:54 Dose: Not Given Documented by: Pregabalin (Pregabalin 150 Mg Cap) 150 mg PO TID [facility] Stop: 10/13/20 20:59 Last Admin: 09/18/20 08:59 Dose: 150 mg Documented by: Simethicone (Simethicone 80 Mg Chew) 80 mg PO Q6H PRN PRN Reason: Gas or Constipation Stop: 10/17/20 15:01 Last Admin: 09/18/20 08:51 Dose: 80 mg Documented by: Simvastatin (Simvastatin 40 Mg Tab) 40 mg PO [facility] Stop: 10/13/20 20:59 Last Admin: 09/17/20 21:15 Dose: 40 mg Documented by: Trazodone HCl (Trazodone Hcl 50 Mg Tab) 50 mg PO [facility] Stop: 10/13/20 20:59 Last Admin: 09/17/20 21:15 Dose: 50 mg Documented by: Umeclidinium/Vilanterol (Umeclidinium/Vilanterol 62.5/25mcg 7 Puffs/Inhaler) 1 puffs INH DAILY [facility]; Protocol Stop: 10/14/20 08:59 Last Admin: 09/18/20 08:53 Dose: 1 puffs Documented by: Pending Studies at Discharge: No Stand-Alone Forms: [facility] Skilled Items Patient informed of condition?: Yes DNR: Yes Discharge Level of Care: Other Communicable Disease: No Discharge Prognosis: Stable Lines: Peripheral IV Urinary Catheter: Yes Medications and DC Order Prescriptions: Continued protein supplement Liquid 30 ea PO DAILY RF: 0 ascorbic acid (vitamin C) 500 mg tablet 500 mg PO BID RF: 0 enoxaparin [Lovenox] 40 mg/0.4 mL syringe 40 mg subcut QAM RF: 0 guaifenesin 100 mg/5 mL liquid 100 mg PO Q4H PRN (Reason: Cough) RF: 0 lidocaine [Lidoderm] 5 % adhesive patch,medicated 1 patch topical BID RF: 0 nystatin 100,000 unit/gram powder 1 applic topical BID RF: 0 metoprolol succinate [Toprol XL] 25 mg Tablet Extended Release 24 Hr 25 mg PO QAM RF: 0 ipratropium-albuterol 0.5 mg-3 mg(2.5 mg base)/3 mL solution for nebulization 3 ml INHALATION Q4H PRN (Reason: Shortness Of Breath Or Wheezing) RF: 0 aspirin 81 mg Tablet,Delayed Release (Dr/Ec) 81 mg PO QAM RF: 0 citalopram [Celexa] 20 mg tablet 10 mg PO QAM RF: 0 lorazepam [Ativan] 1 mg tablet 1 mg PO BID PRN (Reason: Anxiety) RF: 0 trazodone 50 mg Tablet 50 mg PO HS RF: 0 simvastatin [Zocor] 40 mg Tablet 40 mg PO HS RF: 0 pantoprazole [Protonix] 40 mg Tablet,Delayed Release (Dr/Ec) 40 mg PO QAM RF: 0 montelukast [Singulair] 10 mg Tablet 10 mg PO HS RF: 0 lisinopril [Zestril] 5 mg Tablet 5 mg PO QAM RF: 0 furosemide [Lasix] 20 mg Tablet 20 mg PO QAM RF: 0 ergocalciferol (vitamin D2) [Vitamin D2] 50,000 unit Capsule 50,000 unit PO WK RF: 0 fluticasone propionate [Flonase Allergy Relief] 50 mcg/actuation [place],Suspension 2 spray INTRANASAL DAILY PRN (Reason: Allergy Symptoms) RF: 0 docusate sodium [Stool Softener] 100 mg Tablet 100 mg PO BID RF: 0 (DME) Oxygen Home Liters Per Minute See Dose Instructions .ROUTE .MEDSUPPLY Qty: 1 RF: 0 pregabalin [Lyrica] 100 mg capsule 150 mg PO TID RF: 0 amitriptyline 10 mg Tablet 10 mg PO HS RF: 0 multivitamin Tablet 1 tab PO QAM RF: 0 polyethylene glycol 3350 [Miralax] 17 gram/dose Powder 17 g PO QAM RF: 0 acetaminophen 500 mg Tablet 1,000 mg PO Q8 PRN (Reason: fever or pain) Qty: 30 RF: 0 ondansetron HCl 4 mg tablet 4 mg PO Q6H PRN (Reason: Nausea) RF: 0 oxycodone 5 mg Tablet 10 mg PO Q6H PRN (Reason: Severe Pain (Scale Score 7-10)) RF: 0 Trelegy Ellipta 100-62.5-25 mcg Blister With Device 1 inh INHALATION QAM RF: 0 diclofenac sodium [Voltaren] 1 % Gel 2 g TOPICAL QID RF: 0 PreserVision AREDS 1 cap PO DAILY RF: 0 Discharge Orders: Discharge Order (Routine); Ordered 09/19/20 Ordered By: Alex Hurley Admission Data Admit Date/Time: 09/14/20 21:53 Attending Provider: Alex Hurley Admit Provider: Maribell Montanez Primary Care Provider: [facility] Other Providers: [facility] ; Maribell Montanez ; Edmond Garcia ; Dereje Meyer ; Abdoul Pinedo ; Melinda Porter ; Luke Garg I. ; Raheem Yeager II ; Elida Metz ; Ismael Valdez
[2020-09-21] MEDS ORDERED: VANCOMYCIN TROUGH ONE (11:30)
== END 2020-09-19 18:31 | disposition short-term general hospital (02) | DRG 853 ==
LOC: 2W 13:59 → ED 13:59 → 2W 20:06 → SUATTDRO 09-14 21:53

== ENCOUNTER 2020-10-13 09:47 | Inpatient (IN) ==
[2020-10-13] MEDS ORDERED: PANTOprazole 80 MG in DEXTROSE 5% 100 ML IV ONE (09:49)
[2020-10-13] MEDS ORDERED: ONDANSETRON INJ 2 MG/ML 2 ML VIAL IV STA (09:51)
[2020-10-13 10:15] LABS: Basophils # (auto) 0.02 K/uL (0-0.2); Basophils % (auto) 0.2 %; Eosinophils # (auto) 0.51 K/uL (0-0.5); Eosinophils % (auto) 5.3 %; Hematocrit (blood only) 24.9 % (37-47); Hemoglobin 7.7 g/dL (12.0-16.0); Immature Granulocytes # (auto) 0.03 K/uL (0.00-0.02); Immature Granulocytes % (auto) 0.3 %; Lymphocytes # (auto) 1.17 K/uL (1.2-3.4); Lymphocytes % (auto) 12.1 %; Mean Corpuscular Hgb Conc 30.9 g/dL (32-36); Mean Corpuscular Volume 96.9 fL (80-100); Mean Platelet Volume 9.7 fL (7.4-10.4); Monocytes # (auto) 1.22 K/uL (0.11-0.59); Monocytes % (auto) 12.7 %; Neutrophils # (auto) 6.69 K/uL (1.4-6.5); Neutrophils % (auto) 69.4 %; Platelet Count 251 K/uL (130-400); RDW Coefficient of Variation 15.1 % (11.5-14.5); RDW Standard Deviation 53.9 fL (36.4-46.3); Red Blood Count 2.57 M/uL (4.2-5.4); White Blood Count 9.64 K/uL (4.8-10.8)
--- NOTE | 2020-10-13 10:24 | XRay Report ---
XR chest 1V portable CLINICAL HISTORY: Atypical chest pain COMPARISON STUDY: 09/13/2020 FINDINGS: The heart is enlarged. There are small bilateral pleural effusions. There is suspected pulm onary vascular congestion. There are more focal right upper lobe pulmonary airspace opacities, pneumo meghana versus asymmetric edema. There are bibasilar opacities likely representing compressive atelectasi s. There is a right-sided PICC catheter, the tip of which projects over the superior vena cava.[ IMPRESSION: 1. Cardiomegaly and radiographic evidence of pulmonary vascular congestion with bilateral pleural eff usions 2. Right upper lobe airspace opacities, pneumonia versus asymmetric edema. Clinical and radiographic follow-up are recommended. ACT 112: Negative or not required by law. Electronically signed by: Rakan Azul M.D. 10/13/2020 10:23 AM
[2020-10-13 10:31] LABS: Albumin Level 1.9 gm/dl (3.4-5.0); BUN Creatinine Ratio 23.6 (10-20); Calcium 8.6 mg/dl (8.5-10.1); Creatinine Clr Calc Pharmacy 65.1 ml/min; Est GFR (African American) 60.8 ml/min; Est GFR (Non-African American) 52.4 ml/min; INR 1.1 (0.9-1.1); Partial Thromboplastin Ratio 1.1; Partial Thromboplastin Time 29.4 Seconds (21.0-31.0); Potassium 4.6 mmol/L (3.5-5.1); Prothrombin Time 10.7 Seconds (9.0-12.0)
[2020-10-13] MEDS ORDERED: ALBUT/IPRATROP 3MG/0.5MG NEB 3 ML VIAL NEB STA (10:31)
[2020-10-13 10:40] LABS: Albumin Globulin Ratio 0.5 (0.9-2); Bilirubin,Total 0.3 mg/dl (0.2-1); Globulin 4.1 gm/dl (2.5-4.0); Troponin I 0.06 ng/ml (0-0.045)
--- NOTE | 2020-10-13 10:40 | Emergency Department Note ---
History of Present Illness General Chief complaint: GI Assessment Time Seen by Provider: 10/13/20 09:49 Source: patient Mode of arrival: ambulatory Limitations: no limitations History of Present Illness Provider complaint: Shortness of breath Maximum Pain Intensity: 6 This is a 70-year-old female who presents to the ED with a chief complaint of shortness of breath. The patient came from [facility]. I spoke to Dr. Welsh prior to her arrival. He stated that she was there for rehab after having a right hip wound infection. She has been there since September 30. She developed chest pain this morning. He states an EKG looked okay but her hemoglobin today was 6.9. A guaiac test of her stool this morning showed guaiac positive. He sent her here for further evaluation. The patient complains of some generalized weakness. No appetite. She has a chronic cough for months. Home Medications Medication Instructions Recorded Confirmed Type ergocalciferol (vitamin D2) 50,000 unit PO WK 10/07/18 10/13/20 History [Vitamin D2] furosemide [Lasix] 20 mg PO QAM 10/07/18 10/13/20 History montelukast [Singulair] 10 mg PO HS 10/07/18 10/13/20 History pantoprazole [Protonix] 40 mg PO QAM 10/07/18 10/13/20 History trazodone 50 mg PO HS 10/07/18 10/13/20 History metoprolol succinate [Toprol XL] 25 mg PO QAM 04/30/19 10/13/20 History aspirin 81 mg PO QAM 06/14/19 10/13/20 History lorazepam [Ativan] 1 mg PO BID PRN 07/13/20 10/13/20 History ascorbic acid (vitamin C) 500 mg 500 mg PO BID 08/27/20 10/13/20 History tablet citalopram 20 mg tablet 10 mg PO QAM tab 08/27/20 10/13/20 History guaifenesin 100 mg/5 mL oral liquid 100 mg PO Q4H PRN ml 08/27/20 10/13/20 History lidocaine 5 % topical patch 1 patch TOPICAL BID 08/27/20 10/13/20 History multivitamin 1 tab PO QAM 09/01/20 10/13/20 History acetaminophen 1,000 mg PO Q8 PRN #30 tab 09/03/20 10/13/20 Rx Trelegy Ellipta 1 inh INHALATION QAM 09/13/20 10/13/20 History ondansetron HCl 4 mg PO Q6H PRN 09/13/20 10/13/20 History atorvastatin 20 mg PO HS 10/13/20 10/13/20 History cholecalciferol (vitamin D3) 125 mcg PO DAILY 10/13/20 10/13/20 History [Vitamin D3] ferrous sulfate 325 mg PO DAILY 10/13/20 10/13/20 History hydromorphone 0.5 mg PO Q4H 10/13/20 10/13/20 History naloxone [Narcan] 0.1 mg INTRANASAL UD 10/13/20 10/13/20 History pregabalin 150 mg PO TID 10/13/20 10/13/20 History Allergies Allergy/AdvReac Type Severity Reaction Status Date / Time No Known Allergies Allergy Verified 10/13/20 10:10 Past Med/Surg History Medical History Anxiety Chronic indwelling Gonzalez catheter CKD (chronic kidney disease) stage 3, GFR 30-59 ml/min Baseline creatine around 1.2 COPD (chronic obstructive pulmonary disease) on 3 liters of oxygen per records Depression Diastolic CHF due to valvular disease GERD (gastroesophageal reflux disease) History of pulmonary embolism 2013 Hyperlipidemia Hypertension Lumbar radiculopathy Macular degeneration Moderate aortic stenosis Per 07/14/20 ECHO: PATO 1.3-1.6 cm; AV peak velocity 3.52 m/s; AV mean gradient 21.1 mmHg Morbid obesity Poor vision Recurrent UTI Urinary retention with incomplete bladder emptying Surgical History History of cholecystectomy History of hysterectomy History of right knee surgery History of surgery Right distal femur periprosthetic open reduction 07/14/20 and right femur I&D History of total left knee replacement History of total right hip arthroplasty History of total right knee replacement Family History Other Cancer Social History Smoking Status: Unknown if ever smoked Second Hand Exposure: No; Hx Alcohol Use: No Hx Substance Use: No Preferred Language: Afghan Communication Ability: Effective Conference Producer Required: No Beliefs That Will Affect Care: None marital status: / Current Living Situation: Personal Care Facility Current Living Situation Comment: [facility] resident current occupational status: retired Feels Safe at Home: Yes Assistive Devices: Walker Review of Systems A total of 10 systems reviewed and were otherwise negative Physical Exam Vital Signs Vital Signs - 24 hr 10/13/20 10:02 10/13/20 10:08 10/13/20 10:09 Temperature 37.5 C Temperature Source Oral Pulse Rate 86 Pulse Rate [Finger] Respiratory Rate 18 Respiratory Effort / Characteristics Blood Pressure 150/47 H Blood Pressure [Left Arm] Blood Pressure Mean 81 Blood Pressure Mean [Left Arm] Pulse Oximetry 83 L 83 L 95 Oxygen Delivery Method Room Air Nasal Cannula Nasal Cannula Oxygen Flow Rate 0 3 Sepsis Recent Fever Within 48 Hours No Sepsis New/Unexplained Change in Mental Status No Sepsis Action Taken by Nursing No Action Required Oxygen Flow Rate - Titration 3 Pulse Oximetry Post Tiitration 93 10/13/20 11:01 10/13/20 11:37 10/13/20 12:35 Temperature Temperature Source Pulse Rate Pulse Rate [Finger] 77 80 Respiratory Rate 14 20 Respiratory Effort / Characteristics Non-Labored Spontaneous Blood Pressure Blood Pressure [Left Arm] 134/42 L 154/46 H Blood Pressure Mean Blood Pressure Mean [Left Arm] 72 82 Pulse Oximetry 94 93 Oxygen Delivery Method Nasal Cannula Nasal Cannula Oxygen Flow Rate 4 3 Sepsis Recent Fever Within 48 Hours Sepsis New/Unexplained Change in Mental Status Sepsis Action Taken by Nursing Oxygen Flow Rate - Titration Pulse Oximetry Post Tiitration 10/13/20 13:25 Temperature 37.2 C Temperature Source Oral Pulse Rate 79 Pulse Rate [Finger] Respiratory Rate 20 Respiratory Effort / Characteristics Blood Pressure 145/49 H Blood Pressure [Left Arm] Blood Pressure Mean 81 Blood Pressure Mean [Left Arm] Pulse Oximetry 95 Oxygen Delivery Method Oxygen Flow Rate 3 Sepsis Recent Fever Within 48 Hours Sepsis New/Unexplained Change in Mental Status Sepsis Action Taken by Nursing Oxygen Flow Rate - Titration Pulse Oximetry Post Tiitration CONSTITUTIONAL/VITAL SIGNS: Reviewed / noted above. GENERAL: Non-toxic in appearance. INTEGUMENTARY: Warm, dry, and [place]. HEAD: Normocephalic. EYES: without scleral icterus or trauma. ENT/OROPHARYNX: clear and moist. LYMPHADENOPATHY/NECK: Is supple without lymphadenopathy or meningismus. RESPIRATORY: Lungs revealed bilateral expiratory wheezing and some crackles. CARDIOVASCULAR: Regular rate and rhythm. GI/ABDOMEN: Soft and nontender. No organomegaly or pulsatile mass. No rebound or guarding. Normal bowel sounds. EXTREMITIES: Warm and well perfused. BACK: No CVA tenderness. NEUROLOGICAL: Intact without focal deficits. PSYCHIATRIC: normal affect. MUSCULOSKELETAL: Normally developed with good muscle tone. TRIAGE NURSING DOCUMENTATION REVIEWED. Course Administered Medications Discontinued Medications Albuterol (Albut/Ipratrop 3mg/0.5mg Neb 3 Ml Vial) 3 ml NEB NOW STA Stop: 10/13/20 10:32 Last Admin: 10/13/20 10:58 Dose: 3 ml Documented by: [id number] Furosemide (Furosemide 40 Mg/4 Ml Vial) 40 mg IV NOW STA Stop: 10/13/20 12:24 Last Admin: 10/13/20 12:35 Dose: 40 mg Documented by: [id number] Pantoprazole Sodium 80 mg/ (Dextrose) 100 mls @ 400 mls/hr IV NOW ONE Stop: 10/13/20 10:03 Last Infusion: 10/13/20 10:53 Dose: 0 mls/hr Documented by: [id number] Admin: 10/13/20 10:32 Dose: 400 mls/hr Documented by: [id number] Ondansetron HCl (Ondansetron Inj 2 Mg/Ml 2 Ml Vial) 4 mg IV NOW STA Stop: 10/13/20 09:52 Last Admin: 10/13/20 10:32 Dose: 4 mg Documented by: [id number] Critical Care Time Critical Care Time: Yes Total Critical Care Time: 43 I have personally spent 43 minutes of critical care time in the direct management of this patient. This includes bedside care, interpretation of diagnostic studies, and testing, discussion with consultants, patient, and famil y members, and other required patient management activities. This 43 minutes is in excess of all separately billable procedures. Medical Decision Making Differential Diagnosis Differential includes acute coronary syndrome, myocardial infarction, CVA, TIA, anemia, infection, pneumonia, UTI, pyelonephritis, poor nutrition, dehydration, electrolyte disturbance,hypoglycemia. Medical Records Attestation: I reviewed the patient's medical records. Home Medications Current Medication List: was personally reviewed by me Laboratory Data Attestation: I reviewed the patient's lab results. Result diagrams: 10/13/20 10:00 10/13/20 10:00 Lab Results 10/13/20 10/13/20 10/13/20 Range/Units 10:00 10:00 10:00 WBC 9.64 (4.8-10.8) K/uL RBC 2.57 L (4.2-5.4) M/uL Hgb 7.7 L (12.0-16.0) g/dL Hct 24.9 L (37-47) % MCV 96.9 (80-100) fL MCH 30.0 (25-34) pg MCHC 30.9 L (32-36) g/dL RDW Std Deviation 53.9 H (36.4-46.3) fL RDW Coeff of Leo 15.1 H (11.5-14.5) % Plt Count 251 (130-400) K/uL MPV 9.7 (7.4-10.4) fL Immature Gran % (Auto) 0.3 % Neut % (Auto) 69.4 % Lymph % (Auto) 12.1 % Mclean % (Auto) 12.7 % Eos % (Auto) 5.3 % Baso % (Auto) 0.2 % Neut # (Auto) 6.69 H (1.4-6.5) K/uL Lymph # (Auto) 1.17 L (1.2-3.4) K/uL Mclean # (Auto) 1.22 H (0.11-0.59) K/uL Eos # (Auto) 0.51 H (0-0.5) K/uL Baso # (Auto) 0.02 (0-0.2) K/uL Immature Gran # (Auto) 0.03 H (0.00-0.02) K/uL RBC Morphology Unremarkable PT (9.0-12.0) Seconds INR (0.9-1.1) APTT (21.0-31.0) Seconds PTT Ratio Sodium 133 L (136-145) mmol/L Potassium 4.6 (3.5-5.1) mmol/L Chloride 94 L (98-107) mmol/L Carbon Dioxide 36 H (21-32) mmol/L Anion Gap 3.0 (3-11) BUN 25 H (7-18) mg/dl Creatinine 1.06 (0.6-1.2) mg/dl Est Cr Clr Drug Dosing 65.1 ml/min Est GFR ( Amer) 60.8 ml/min Est GFR (Non-Af Amer) 52.4 ml/min BUN/Creatinine Ratio 23.6 H (10-20) Glucose 122 H (70-99) mg/dl Calcium 8.6 (8.5-10.1) mg/dl Total Bilirubin 0.3 (0.2-1) mg/dl AST 14 L (15-37) U/L ALT 14 (12-78) U/L Alkaline Phosphatase 66 (45-117) U/L Troponin I 0.060 H* (0-0.045) ng/ml NT-Pro-B Natriuret Pep (0-900) pg/ml Total Protein 6.0 L (6.4-8.2) gm/dl Albumin 1.9 L (3.4-5.0) gm/dl Globulin 4.1 H (2.5-4.0) gm/dl Albumin/Globulin Ratio 0.5 L (0.9-2) Procalcitonin (0-0.5) ng/ml COVID-19 Eval Order SARS-CoV-2 (PCR) (Negative) Blood Type AB Negative Antibody Screen NEGATIVE Crossmatch See Detail 10/13/20 10/13/20 10/13/20 Range/Units 10:00 10:47 10:47 WBC (4.8-10.8) K/uL RBC (4.2-5.4) M/uL Hgb (12.0-16.0) g/dL Hct (37-47) % MCV (80-100) fL MCH (25-34) pg MCHC (32-36) g/dL RDW Std Deviation (36.4-46.3) fL RDW Coeff of Leo (11.5-14.5) % Plt Count (130-400) K/uL MPV (7.4-10.4) fL Immature Gran % (Auto) % Neut % (Auto) % Lymph % (Auto) % Mclean % (Auto) % Eos % (Auto) % Baso % (Auto) % Neut # (Auto) (1.4-6.5) K/uL Lymph # (Auto) (1.2-3.4) K/uL Mclean # (Auto) (0.11-0.59) K/uL Eos # (Auto) (0-0.5) K/uL Baso # (Auto) (0-0.2) K/uL Immature Gran # (Auto) (0.00-0.02) K/uL RBC Morphology PT 10.7 (9.0-12.0) Seconds INR 1.1 (0.9-1.1) APTT 29.4 (21.0-31.0) Seconds PTT Ratio 1.1 Sodium (136-145) mmol/L Potassium (3.5-5.1) mmol/L Chloride (98-107) mmol/L Carbon Dioxide (21-32) mmol/L Anion Gap (3-11) BUN (7-18) mg/dl Creatinine (0.6-1.2) mg/dl Est Cr Clr Drug Dosing ml/min Est GFR ( Amer) ml/min Est GFR (Non-Af Amer) ml/min BUN/Creatinine Ratio (10-20) Glucose (70-99) mg/dl Calcium (8.5-10.1) mg/dl Total Bilirubin (0.2-1) mg/dl AST (15-37) U/L ALT (12-78) U/L Alkaline Phosphatase (45-117) U/L Troponin I (0-0.045) ng/ml NT-Pro-B Natriuret Pep [id number] H (0-900) pg/ml Total Protein (6.4-8.2) gm/dl Albumin (3.4-5.0) gm/dl Globulin (2.5-4.0) gm/dl Albumin/Globulin Ratio (0.9-2) Procalcitonin 0.18 (0-0.5) ng/ml COVID-19 Eval Order SARS-CoV-2 (PCR) (Negative) Blood Type Antibody Screen Crossmatch 10/13/20 10/13/20 Range/Units 10:50 10:50 WBC (4.8-10.8) K/uL RBC (4.2-5.4) M/uL Hgb (12.0-16.0) g/dL Hct (37-47) % MCV (80-100) fL MCH (25-34) pg MCHC (32-36) g/dL RDW Std Deviation (36.4-46.3) fL RDW Coeff of Leo (11.5-14.5) % Plt Count (130-400) K/uL MPV (7.4-10.4) fL Immature Gran % (Auto) % Neut % (Auto) % Lymph % (Auto) % Mclean % (Auto) % Eos % (Auto) % Baso % (Auto) % Neut # (Auto) (1.4-6.5) K/uL Lymph # (Auto) (1.2-3.4) K/uL Mclean # (Auto) (0.11-0.59) K/uL Eos # (Auto) (0-0.5) K/uL Baso # (Auto) (0-0.2) K/uL Immature Gran # (Auto) (0.00-0.02) K/uL RBC Morphology PT (9.0-12.0) Seconds INR (0.9-1.1) APTT (21.0-31.0) Seconds PTT Ratio Sodium (136-145) mmol/L Potassium (3.5-5.1) mmol/L Chloride (98-107) mmol/L Carbon Dioxide (21-32) mmol/L Anion Gap (3-11) BUN (7-18) mg/dl Creatinine (0.6-1.2) mg/dl Est Cr Clr Drug Dosing ml/min Est GFR ( Amer) ml/min Est GFR (Non-Af Amer) ml/min BUN/Creatinine Ratio (10-20) Glucose (70-99) mg/dl Calcium (8.5-10.1) mg/dl Total Bilirubin (0.2-1) mg/dl AST (15-37) U/L ALT (12-78) U/L Alkaline Phosphatase (45-117) U/L Troponin I (0-0.045) ng/ml NT-Pro-B Natriuret Pep (0-900) pg/ml Total Protein (6.4-8.2) gm/dl Albumin (3.4-5.0) gm/dl Globulin (2.5-4.0) gm/dl Albumin/Globulin Ratio (0.9-2) Procalcitonin (0-0.5) ng/ml COVID-19 Eval Order Covid19 at [facility] SARS-CoV-2 (PCR) NEGATIVE (Negative) Blood Type Antibody Screen Crossmatch Imaging Data Radiologist's Impression: Chest X-Ray 10/13/20 09:49 XR chest 1V portable CLINICAL HISTORY: Atypical chest pain COMPARISON STUDY: 09/13/2020 FINDINGS: The heart is enlarged. There are small bilateral pleural effusions. There is suspected pulmonary vascular congestion. There are more focal right upper lobe pulmonary airspace opacities, pneumonia versus asymmetric edema. There are bibasilar opacities likely representing compressive atelectasis. There is a right-sided PICC catheter, the tip of which projects over the superior vena cava.[ IMPRESSION: 1. Cardiomegaly and radiographic evidence of pulmonary vascular congestion with bilateral pleural effusions 2. Right upper lobe airspace opacities, pneumonia versus asymmetric edema. Clinical and radiographic follow-up are recommended. ACT 112: Negative or not required by law. Electronically signed by: Rakan Azul M.D. 10/13/2020 10:23 AM ECG Data Attestation: I personally reviewed and interpreted this ECG as follows: Indication: + chest pain Rate (beats per minute): 75 Rhythm: + normal sinus ECG Intervals/blocks: + Normal QT-c ECG ST segments: no ST elevation ECG Findings: no PVCs MDM Narrative Patient presents from [facility] with generalized weakness, guaiac positive stools and a low hemoglobin with no appetite. Outpatient hemoglobin was 6.9. Her hemoglobin here today is 7.7. Previous lab testing the end of August showed a hemoglobin of 8.6. [facility] stated guaiac positive stools. Chemistry panel as noted above. Chest x-ray suggesting some pulmonary vascular congestion as well as some right upper lobe airspace opacities. Pneumo meghana versus asymmetric edema. Clinically the patient does not have any new cough, productive cough or new symptoms suggestive of a pneumonia. EKG shows a normal sinus rhythm at a rate of 75. Hemoglobin is 7.7 today. It was 6.9 earlier. BNP is 11,000. Troponin is 0.060. Chest x-ray shows findings suggestive of some pulmonary vascular congestion as well as possible right upper lobe air opacities pneumonia versus asymmetric edema. Covid test was negative. The patient was treated with a DuoNeb treatment as well as some IV Lasix and IV Zofran. She was also given IV pantoprazole and some IV fluids. Blood transfusion has been ordered. The patient will be seen by the hospitalist for further inpatient evaluation and care. Impression & Plan Congestive heart failure, Elevated troponin, Anemia Discharge Plan Visit Data Chief Complaint: GI Assessment ED Provider: Devan Junior Discharge Problem: Congestive heart failure, Elevated troponin, Anemia Patient Disposition: Being Evaluated by Hospitalist Forms Stand Alone Forms: [facility] Prescriptions Prescriptions: No Action ascorbic acid (vitamin C) 500 mg tablet 500 mg PO BID RF: 0 guaifenesin 100 mg/5 mL liquid 100 mg PO Q4H PRN (Reason: Cough) RF: 0 lidocaine [Lidoderm] 5 % adhesive patch,medicated 1 patch topical BID RF: 0 metoprolol succinate [Toprol XL] 25 mg Tablet Extended Release 24 Hr 25 mg PO QAM RF: 0 aspirin 81 mg Tablet,Delayed Release (Dr/Ec) 81 mg PO QAM RF: 0 citalopram [Celexa] 20 mg tablet 10 mg PO QAM RF: 0 lorazepam [Ativan] 1 mg tablet 1 mg PO BID PRN (Reason: Anxiety) RF: 0 trazodone 50 mg Tablet 50 mg PO HS RF: 0 pantoprazole [Protonix] 40 mg Tablet,Delayed Release (Dr/Ec) 40 mg PO QAM RF: 0 montelukast [Singulair] 10 mg Tablet 10 mg PO HS RF: 0 furosemide [Lasix] 20 mg Tablet 20 mg PO QAM RF: 0 ergocalciferol (vitamin D2) [Vitamin D2] 50,000 unit Capsule 50,000 unit PO WK RF: 0 multivitamin Tablet 1 tab PO QAM RF: 0 acetaminophen 500 mg Tablet 1,000 mg PO Q8 PRN (Reason: fever or pain) Qty: 30 RF: 0 ondansetron HCl 4 mg tablet 4 mg PO Q6H PRN (Reason: Nausea) RF: 0 Trelegy Ellipta 100-62.5-25 mcg Blister With Device 1 inh INHALATION QAM RF: 0 atorvastatin 20 mg Tablet 20 mg PO HS RF: 0 hydromorphone 2 mg Tablet 0.5 mg PO Q4H RF: 0 ferrous sulfate 325 mg (65 mg iron) Tablet 325 mg PO DAILY RF: 0 pregabalin 75 mg Capsule 150 mg PO TID RF: 0 cholecalciferol (vitamin D3) [Vitamin D3] 125 mcg (5,000 unit) Tablet 125 mcg PO DAILY RF: 0 Narcan 4 mg/actuation [place],Non-Aerosol 0.1 mg INTRANASAL UD RF: 0 Referrals Referrals: [facility] [Primary Care Provider] - Discharge Problem: Congestive heart failure Qualifiers: Heart failure type: unspecified Heart failure chronicity: acute Qualified Code(s): I50.9 - Heart failure, unspecified
[2020-10-13 10:49] LABS: RBC Morphology Unremarkable
[2020-10-13] MEDS ORDERED: FUROSEMIDE 40 MG/4 ML VIAL IV STA (12:23)
[2020-10-13] MEDS ORDERED: SODIUM CHLORIDE 0.9% 250 ML IV PRN (12:39)
--- NOTE | 2020-10-13 14:20 | History & Physical Report ---
Date of Service October 13, 2020 Assessment & Plan (1) Congestive heart failure: (2) Elevated troponin: (3) Anemia: (4) Acute on chronic diastolic CHF (congestive heart failure): (5) Right femoral fracture: (6) Morbid obesity: (7) COPD (chronic obstructive pulmonary disease): (8) Weakness: (9) GERD (gastroesophageal reflux disease): (10) Anxiety: (11) History of pulmonary embolism: (12) Hyperlipidemia: (13) Depression: (14) CKD (chronic kidney disease) stage 3, GFR 30-59 ml/min: (15) Hypertension: (16) Chronic indwelling Gonzalez catheter: Packed cells ordered, Serial Vi, Hold SC Lovenox/Heparin, GI eval, Cards eval, Lasix, OP meds where indicated, monitor daily labs. SCD LLE, Pre-Albumin Patient is DNR/DNI Present on Admission?: No Admission and Anticipated Discharge Date Anticipated date of discharge: 10/15/20 History of Present Illness Chief Complaint: Low Hb, Chest pain Primary Care Provider: Iván Fallon 70 yo female with PMH of Acute on Chronic Diastolic CHF, Anemia, Jerks, CAUTI, RLE Cellulitis, Myoclonus, Sepsis, UTIs, Obesity, COPD, GERD, Anxiety, PE, Lumbar Radiculopathy, HLD, Depression, CKD III, HTN, Bronchitis, Sustained Vt, and an NSTEMI who was rehabbing after a femur fracture repair and after having a right hip wound infection. She has been there since September 30. She developed chest pain this morning. Her EKG looked okay but her hemoglobin was 6.9. A guaiac test of her stool this morning showed guaiac positive. She was sent here for further evaluation. The patient complains of some generalized weakness. She c/o 2-3/10 chest pain wo radiation, no Diaphoresis, and no SOB. The pain was Sub-Sternal. Allergies Allergy/AdvReac Type Severity Reaction Status Date / Time No Known Allergies Allergy Verified 10/13/20 10:10 Home Medications Medication Instructions Recorded Confirmed Type ergocalciferol (vitamin D2) 50,000 unit PO WK 10/07/18 10/13/20 History [Vitamin D2] furosemide [Lasix] 20 mg PO BID 10/07/18 10/13/20 History montelukast [Singulair] 10 mg PO HS 10/07/18 10/13/20 History pantoprazole [Protonix] 40 mg PO QAM 10/07/18 10/13/20 History trazodone 50 mg PO HS 10/07/18 10/13/20 History metoprolol succinate [Toprol XL] 25 mg PO QAM 04/30/19 10/13/20 History aspirin 81 mg PO QAM 06/14/19 10/13/20 History lorazepam [Ativan] 1 mg PO TID PRN 07/13/20 10/13/20 History ascorbic acid (vitamin C) 500 mg 500 mg PO BID 08/27/20 10/13/20 History tablet citalopram 20 mg tablet 10 mg PO QAM tab 08/27/20 10/13/20 History guaifenesin 100 mg/5 mL oral liquid 100 mg PO Q4H PRN ml 08/27/20 10/13/20 History lidocaine 5 % topical patch 1 patch TOPICAL BID 08/27/20 10/13/20 History multivitamin 1 tab PO QAM 09/01/20 10/13/20 History Trelegy Ellipta 1 inh INHALATION QAM 09/13/20 10/13/20 History ondansetron HCl 4 mg PO Q6H PRN 09/13/20 10/13/20 History acetaminophen 650 mg PO Q4H PRN 10/13/20 10/13/20 History amitriptyline 25 mg PO HS 10/13/20 10/13/20 History atorvastatin 20 mg PO HS 10/13/20 10/13/20 History bisacodyl 10 mg NE DAILY PRN 10/13/20 10/13/20 History cholecalciferol (vitamin D3) 125 mcg PO DAILY 10/13/20 10/13/20 History [Vitamin D3] daptomycin 900 mg IV DAILY 10/13/20 10/13/20 History docusate sodium 100 mg PO BID 10/13/20 10/13/20 History enoxaparin [Lovenox] 40 mg SUBCUT Q12H 10/13/20 10/13/20 History ferrous sulfate 325 mg PO DAILY 10/13/20 10/13/20 History hydromorphone 1 mg PO Q4H PRN 10/13/20 10/13/20 History ipratropium-albuterol [Combivent 1 puff INHALATION QID PRN 10/13/20 10/13/20 History Respimat] lisinopril 5 mg PO DAILY 10/13/20 10/13/20 History magnesium hydroxide [Milk of 30 ml PO DAILY PRN 10/13/20 10/13/20 History Magnesia] naloxone [Narcan] 0.1 mg INTRANASAL UD 10/13/20 10/13/20 History polyethylene glycol 3350 [Miralax] 17 g PO DAILY PRN 10/13/20 10/13/20 History pregabalin 150 mg PO TID 10/13/20 10/13/20 History sennosides-docusate sodium 1 tab-cap PO DAILY PRN 10/13/20 10/13/20 History [Senokot-S] simethicone 80 mg PO TID PRN 10/13/20 10/13/20 History sodium phosphates [Fleet Enema] 118 ml NE DAILY PRN 10/13/20 10/13/20 History Past Med/Surg History Medical History Anxiety Chronic indwelling Gonzalez catheter CKD (chronic kidney disease) stage 3, GFR 30-59 ml/min Baseline creatine around 1.2 COPD (chronic obstructive pulmonary disease) on 3 liters of oxygen per records Depression Diastolic CHF due to valvular disease GERD (gastroesophageal reflux disease) History of pulmonary embolism 2013 Hyperlipidemia Hypertension Lumbar radiculopathy Macular degeneration Moderate aortic stenosis Per 07/14/20 ECHO: PATO 1.3-1.6 cm; AV peak velocity 3.52 m/s; AV mean gradient 21.1 mmHg Morbid obesity Poor vision Recurrent UTI Urinary retention with incomplete bladder emptying Surgical History History of cholecystectomy History of hysterectomy History of right knee surgery History of surgery Right distal femur periprosthetic open reduction 07/14/20 and right femur I&D History of total left knee replacement History of total right hip arthroplasty History of total right knee replacement Family History Other Cancer Social History Smoking Status: Unknown if ever smoked Second Hand Exposure: No; Hx Alcohol Use: No Hx Substance Use: No Preferred Language: Chinese Communication Ability: Effective Scalper Operator Required: No Beliefs That Will Affect Care: None marital status: / Current Living Situation: Personal Care Facility Current Living Situation Comment: [place] [facility] resident current occupational status: retired Feels Safe at Home: Yes Assistive Devices: Walker Review of Systems Review of Systems: ROS-No Headache, No Visual Changes, No Nausea, No Vomiting, No Fever, No Chills, No Neck Pain or Stiffness, + Chest Pain, No Palpitations, No SOB, No ESCOBEDO, No Cough, No Sputum, Mild Wheezing, No Abdominal Pain, No Diarrhea, No Hematemesis, No Hemoptysis, No Unexpected Weight Loss, No Flank pain, No Melena, No Hematochezia, No Frequency, No Urgency, No Burning, No Hematuria, No Rashes, No Diaphoresis. Appetite is Normal, +R Hip Pain, +Indigestion Physical Exam Physical Exam: Physical Exam Gen-AAO x 3, NAD, Afebrile, Audible wheeze, Obese Head-NCAT, EOMI, PERRLA, Anicteric Sclera, No Posterior Pharyngeal Erythema Neck-Supple, No JVD, No Thyromegaly, No Masses, No LAD, No Bruits Lungs-Clear to Auscultation Bilaterally, No Rales, No Rhonchi, No Wheezing, No Crepitus Chest-No S4, +S1, +S2, No S3, No Murmurs, No Rubs, No Gallops, No Ectopy Abdomen-Soft, Bowel Sounds Present, Non Tender, Non Distended, No Hepatomegaly, No Splenomegaly, No Palpable Masses, No Rebound, No Rigidity, No Guarding Musculoskeletal-RLE wound dressed, No CVAT Extremities-No Cyanosis, No Clubbing, No Edema Nuero-Cranial Nerves II-XII grossly intact, Motor WNL, DTRs WNL, Strength WNL, Non Focal Psych-Normal Mood Results & Data Results & Data ([facility]) Vital Signs (Past 12 Hours) Vital Signs Temp Pulse Pulse Resp BP BP Pulse Ox 10/13/20 13:55 37.4 C 75 18 156/53 H 95 10/13/20 13:40 37.3 C 76 18 156/53 H 93 10/13/20 13:25 37.2 C 79 20 145/49 H 95 10/13/20 12:35 154/46 H 10/13/20 11:37 80 20 134/42 L 93 10/13/20 11:01 77 14 94 10/13/20 10:09 95 10/13/20 10:08 83 L 10/13/20 10:02 37.5 C 86 18 150/47 H 83 L Allergies No Known Allergies Allergy (Verified 10/13/20 10:10) Height/Weight/Isolation Height 5 ft 6 in Weight 126 kg Chemistry 10/13/20 10:00 Sodium 133 L Potassium 4.6 Chloride 94 L Carbon Dioxide 36 H Anion Gap 3.0 BUN 25 H Creatinine 1.06 Glucose 122 H Microbiology 10/13/20 10:47 Blood Aerobic Blood Culture - Pending 10/13/20 10:47 Blood Anaerobic Blood Culture - Pending 10/13/20 10:01 Blood Aerobic Blood Culture - Pending 10/13/20 10:01 Blood Anaerobic Blood Culture - Pending Code Status & VTE Plan Code Status DNR VTE Prophylaxis Plan VTE Prophylaxis will be ordered: Yes Reason for no VTE drug order: Contraindicated (1) Congestive heart failure Heart failure chronicity: acute Heart failure type: unspecified Qualified Code(s): I50.9 - Heart failure, unspecified (2) COPD (chronic obstructive pulmonary disease) COPD type: unspecified COPD Qualified Code(s): J44.9 - Chronic obstructive pulmonary disease, unspecified
--- NOTE | 2020-10-13 14:36 | Electrocardiogram Report ---
Test Reason : Blood Pressure : / mmHG Vent. Rate : 075 BPM Atrial Rate : 075 BPM P-R Int : 162 ms QRS Dur : 090 ms QT Int : 378 ms P-R-T Axes : 047 042 055 degrees QTc Int : 422 ms Normal sinus rhythm with sinus arrhythmia Prominent T wave amplitude Otherwise Normal ECG When compared with ECG of 13-SEP-2020 14:29, No significant change was found Confirmed by Delfino Leone ([id number]) on 10/13/2020 2:36:06 PM Referred By: Confirmed By:Delfino Leone
[2020-10-13] MEDS ORDERED: DAPTOmycin 750 MG in SYRINGE 0 ML IV ONE (14:45)
--- NOTE | 2020-10-13 15:18 | Gastrointestinal Consultation ---
Date of Consultation October 13, 2020 Assessment & Plan (1) Anemia: This is a 70-year-old female with the above comorbidities, being admitted after presenting with CHF vs pneumonia on CXR, and GI asked to evaluate for acute on chronic anemia. Though she was guaiac positive, she has no evidence of melena, hematochezia or hematemesis, and BUN is not elevated, suggesting against acute upper GI bleed. Of note, she had an EGD at an outside facility within the past 30 days notable for gastric ulcer, and stool antigen for H. pylori; for which it appears she has completed treatment for that. She is supposed to have repeat EGD 8 weeks after her most recent one to assess ulcer healing. On exam, she does appear fatigued, however abdomen is soft, and no overt GI bleeding, VSS. She undergoing blood transfusion and diuresis at present. - It's not clear what benefit repeat EGD would be at this point given her overall presentation and potential risks for sedation; will defer this today - Would continue IV PPI - Please monitor and document GI output - Trend H&H, transfuse PRN carefully given cardiac hx - She can have trial of clear liquids today - Would make her NPO after midnight, and reassess in the morning for need for endoscopy - Appreciate primary team mgmt of her co-morbidities Thank you for allowing us to participate in the care of this patient. Please call with any acute changes, questions or concerns. Please see addendum below with additional recommendation from my supervising physician. Supervising Physician Co-Signing Physician Notes I have seen and examined the patient and discussed the management with Chitra Dickey PA-C. Consult for acute on chronic anemia without oversigns of gi bleeding. PE alert and oriented to person, place and mostly time, abd soft nt nd Labs reviewed Her recent egd was done by Tricia and she appears to be following with tricia Agree with further plan of care as below. History of Present Illness History of Present Illness This is a 70 y/o female with PMHx multiple co-morbidities including diastolic CHF, chronic anemia, RLE Cellulitis, sepsis, UTIs, Obesity, COPD, GERD, Anxiety, PE, Lumbar Radiculopathy, HLD, Depression, CKD III, HTN, Bronchitis, Sustained Vt, and an NSTEMI who suffered a recent femur fx s/p repair and had a right hip wound infection. She's been at a rehab facility since September 30. This AM presented to the ER after having an episode of CP; HGB reported to be 6.9 and stool was guaiac positive. In the ER HGB 7.7, crit 24.9% BUN 25, cr 1.06, Na 133; of note - BNP is elevated at 11,000; trop 0.06, and CXR with findings concerning for CHF vs pneumonia. EKG with NSR. COVID Neg. Pt given Duoneb; is on 3 L NC. She recently underwent EGD on 09/22/20 at [facility] after reportedly presenting with coffee-ground emesis. She did undergo blood transfusion for anemia. EGD was notable for patchy mucosal changes characterized by sloughing found in the esophagus consistent with esophagitis superficialis dissecans, diffuse severe inflammation with erosions and erythema in the gastric body and gastric antrum, and one nonbleeding cratered gastric ulcer and possible visible vessel at the incisura, measuring 20 mm in the largest dimension, injected with epi for hemostasis. Stool was positive for H. pylori, and patient was treated with clarithromycin 500 mg twice daily, amoxicillin 1000 mg twice daily, PPI twice daily x14 days, completed on October 07. I can't find where she has a colonoscopy in the past. Currently denies GI complaints; no BM in the last 4 days. Denies abd pain, n/v, hematemesis, melena, hematochezia. Denies tobacco, ETOH use, no NSAID use. Does take baby ASA. Surgical hx - Hysterectomy, cholecystectomy Allergies Allergy/AdvReac Type Severity Reaction Status Date / Time No Known Allergies Allergy Verified 10/13/20 10:10 Home Medications Medication Instructions Recorded Confirmed Type ergocalciferol (vitamin D2) 50,000 unit PO WK 10/07/18 10/13/20 History [Vitamin D2] furosemide [Lasix] 20 mg PO BID 10/07/18 10/13/20 History montelukast [Singulair] 10 mg PO HS 10/07/18 10/13/20 History pantoprazole [Protonix] 40 mg PO QAM 10/07/18 10/13/20 History trazodone 50 mg PO HS 10/07/18 10/13/20 History metoprolol succinate [Toprol XL] 25 mg PO QAM 04/30/19 10/13/20 History aspirin 81 mg PO QAM 06/14/19 10/13/20 History lorazepam [Ativan] 1 mg PO TID PRN 07/13/20 10/13/20 History ascorbic acid (vitamin C) 500 mg 500 mg PO BID 08/27/20 10/13/20 History tablet citalopram 20 mg tablet 10 mg PO QAM tab 08/27/20 10/13/20 History guaifenesin 100 mg/5 mL oral liquid 100 mg PO Q4H PRN ml 08/27/20 10/13/20 History lidocaine 5 % topical patch 1 patch TOPICAL BID 08/27/20 10/13/20 History multivitamin 1 tab PO QAM 09/01/20 10/13/20 History Trelegy Ellipta 1 inh INHALATION QAM 09/13/20 10/13/20 History ondansetron HCl 4 mg PO Q6H PRN 09/13/20 10/13/20 History acetaminophen 650 mg PO Q4H PRN 10/13/20 10/13/20 History amitriptyline 25 mg PO HS 10/13/20 10/13/20 History atorvastatin 20 mg PO HS 10/13/20 10/13/20 History bisacodyl 10 mg VT DAILY PRN 10/13/20 10/13/20 History cholecalciferol (vitamin D3) 125 mcg PO DAILY 10/13/20 10/13/20 History [Vitamin D3] daptomycin 900 mg IV DAILY 10/13/20 10/13/20 History docusate sodium 100 mg PO BID 10/13/20 10/13/20 History enoxaparin [Lovenox] 40 mg SUBCUT Q12H 10/13/20 10/13/20 History ferrous sulfate 325 mg PO DAILY 10/13/20 10/13/20 History hydromorphone 1 mg PO Q4H PRN 10/13/20 10/13/20 History ipratropium-albuterol [Combivent 1 puff INHALATION QID PRN 10/13/20 10/13/20 History Respimat] lisinopril 5 mg PO DAILY 10/13/20 10/13/20 History magnesium hydroxide [Milk of 30 ml PO DAILY PRN 10/13/20 10/13/20 History Magnesia] naloxone [Narcan] 0.1 mg INTRANASAL UD 10/13/20 10/13/20 History polyethylene glycol 3350 [Miralax] 17 g PO DAILY PRN 10/13/20 10/13/20 History pregabalin 150 mg PO TID 10/13/20 10/13/20 History sennosides-docusate sodium 1 tab-cap PO DAILY PRN 10/13/20 10/13/20 History [Senokot-S] simethicone 80 mg PO TID PRN 10/13/20 10/13/20 History sodium phosphates [Fleet Enema] 118 ml VT DAILY PRN 10/13/20 10/13/20 History Patient History Medical History Anxiety Chronic indwelling Gonzalez catheter CKD (chronic kidney disease) stage 3, GFR 30-59 ml/min Baseline creatine around 1.2 COPD (chronic obstructive pulmonary disease) on 3 liters of oxygen per records Depression Diastolic CHF due to valvular disease GERD (gastroesophageal reflux disease) History of pulmonary embolism 2013 Hyperlipidemia Hypertension Lumbar radiculopathy Macular degeneration Moderate aortic stenosis Per 07/14/20 ECHO: PATO 1.3-1.6 cm; AV peak velocity 3.52 m/s; AV mean gradient 21.1 mmHg Morbid obesity Poor vision Recurrent UTI Urinary retention with incomplete bladder emptying Surgical History History of cholecystectomy History of hysterectomy History of right knee surgery History of surgery Right distal femur periprosthetic open reduction 07/14/20 and right femur I&D History of total left knee replacement History of total right hip arthroplasty History of total right knee replacement Family History Other Cancer Social History Smoking Status: Unknown if ever smoked Second Hand Exposure: No; Hx Alcohol Use: No Hx Substance Use: No Preferred Language: Yoruba Communication Ability: Effective Housekeeper Head Required: No Beliefs That Will Affect Care: None marital status: / Current Living Situation: Personal Care Facility Current Living Situation Comment: [place] [facility] resident current occupational status: retired Feels Safe at Home: Yes Assistive Devices: Walker Review of Systems Review of Systems: All systems reviewed & are unremarkable except as noted in HPI & below Physical Exam Constitutional: well developed + chronically ill; somewhat fatigued; no acute distress Eyes: + anicteric sclerae Neck: supple, no lymphadenopathy Respiratory: scattered wheezes and crackles Cardiovascular: Rate/Rhythm: regular rate and regular rhythm + systolic murmur Gastrointestinal (Abdomen): normal bowel sounds, soft, nontender, no hepatosplenomegaly nondistended Skin: no rashes, warm and dry Psychiatric: Orientation: alert oriented to year, day, place ([facility]) Results & Data ([facility]) Vital Signs (Past 12 Hours) Vital Signs Temp Pulse Pulse Resp BP BP Pulse Ox 10/13/20 14:25 37.3 C 74 18 163/47 H 95 10/13/20 13:55 37.4 C 75 18 156/53 H 95 10/13/20 13:40 37.3 C 76 18 156/53 H 93 10/13/20 13:25 37.2 C 79 20 145/49 H 95 10/13/20 12:35 154/46 H 10/13/20 11:37 80 20 134/42 L 93 10/13/20 11:01 77 14 94 10/13/20 10:09 95 10/13/20 10:08 83 L 10/13/20 10:02 37.5 C 86 18 150/47 H 83 L Laboratory Results 10/13/20 10/13/20 10/13/20 Range/Units 10:50 10:50 10:47 WBC (4.8-10.8) K/uL RBC (4.2-5.4) M/uL Hgb (12.0-16.0) g/dL Hct (37-47) % MCV (80-100) fL MCH (25-34) pg MCHC (32-36) g/dL RDW Std Deviation (36.4-46.3) fL RDW Coeff of Leo (11.5-14.5) % Plt Count (130-400) K/uL MPV (7.4-10.4) fL Immature Gran % (Auto) % Neut % (Auto) % Lymph % (Auto) % Pettis % (Auto) % Eos % (Auto) % Baso % (Auto) % Neut # (Auto) (1.4-6.5) K/uL Lymph # (Auto) (1.2-3.4) K/uL Pettis # (Auto) (0.11-0.59) K/uL Eos # (Auto) (0-0.5) K/uL Baso # (Auto) (0-0.2) K/uL Immature Gran # (Auto) (0.00-0.02) K/uL RBC Morphology PT (9.0-12.0) Seconds INR (0.9-1.1) APTT (21.0-31.0) Seconds PTT Ratio Sodium (136-145) mmol/L Potassium (3.5-5.1) mmol/L Chloride (98-107) mmol/L Carbon Dioxide (21-32) mmol/L Anion Gap (3-11) BUN (7-18) mg/dl Creatinine (0.6-1.2) mg/dl Est Cr Clr Drug Dosing ml/min Est GFR ( Amer) ml/min Est GFR (Non-Af Amer) ml/min BUN/Creatinine Ratio (10-20) Glucose (70-99) mg/dl Calcium (8.5-10.1) mg/dl Total Bilirubin (0.2-1) mg/dl AST (15-37) U/L ALT (12-78) U/L Alkaline Phosphatase (45-117) U/L Troponin I (0-0.045) ng/ml NT-Pro-B Natriuret Pep (0-900) pg/ml Total Protein (6.4-8.2) gm/dl Albumin (3.4-5.0) gm/dl Globulin (2.5-4.0) gm/dl Albumin/Globulin Ratio (0.9-2) Procalcitonin 0.18 (0-0.5) ng/ml COVID-19 Eval Order Covid19 at [facility] SARS-CoV-2 (PCR) NEGATIVE (Negative) Blood Type Antibody Screen Crossmatch 10/13/20 10/13/20 10/13/20 Range/Units 10:47 10:00 10:00 WBC 9.64 (4.8-10.8) K/uL RBC 2.57 L (4.2-5.4) M/uL Hgb 7.7 L (12.0-16.0) g/dL Hct 24.9 L (37-47) % MCV 96.9 (80-100) fL MCH 30.0 (25-34) pg MCHC 30.9 L (32-36) g/dL RDW Std Deviation 53.9 H (36.4-46.3) fL RDW Coeff of Leo 15.1 H (11.5-14.5) % Plt Count 251 (130-400) K/uL MPV 9.7 (7.4-10.4) fL Immature Gran % (Auto) 0.3 % Neut % (Auto) 69.4 % Lymph % (Auto) 12.1 % Pettis % (Auto) 12.7 % Eos % (Auto) 5.3 % Baso % (Auto) 0.2 % Neut # (Auto) 6.69 H (1.4-6.5) K/uL Lymph # (Auto) 1.17 L (1.2-3.4) K/uL Pettis # (Auto) 1.22 H (0.11-0.59) K/uL Eos # (Auto) 0.51 H (0-0.5) K/uL Baso # (Auto) 0.02 (0-0.2) K/uL Immature Gran # (Auto) 0.03 H (0.00-0.02) K/uL RBC Morphology Unremarkable PT 10.7 (9.0-12.0) Seconds INR 1.1 (0.9-1.1) APTT 29.4 (21.0-31.0) Seconds PTT Ratio 1.1 Sodium (136-145) mmol/L Potassium (3.5-5.1) mmol/L Chloride (98-107) mmol/L Carbon Dioxide (21-32) mmol/L Anion Gap (3-11) BUN (7-18) mg/dl Creatinine (0.6-1.2) mg/dl Est Cr Clr Drug Dosing ml/min Est GFR ( Amer) ml/min Est GFR (Non-Af Amer) ml/min BUN/Creatinine Ratio (10-20) Glucose (70-99) mg/dl Calcium (8.5-10.1) mg/dl Total Bilirubin (0.2-1) mg/dl AST (15-37) U/L ALT (12-78) U/L Alkaline Phosphatase (45-117) U/L Troponin I (0-0.045) ng/ml NT-Pro-B Natriuret Pep 67333 H (0-900) pg/ml Total Protein (6.4-8.2) gm/dl Albumin (3.4-5.0) gm/dl Globulin (2.5-4.0) gm/dl Albumin/Globulin Ratio (0.9-2) Procalcitonin (0-0.5) ng/ml COVID-19 Eval Order SARS-CoV-2 (PCR) (Negative) Blood Type Antibody Screen Crossmatch 10/13/20 10/13/20 Range/Units 10:00 10:00 WBC (4.8-10.8) K/uL RBC (4.2-5.4) M/uL Hgb (12.0-16.0) g/dL Hct (37-47) % MCV (80-100) fL MCH (25-34) pg MCHC (32-36) g/dL RDW Std Deviation (36.4-46.3) fL RDW Coeff of Leo (11.5-14.5) % Plt Count (130-400) K/uL MPV (7.4-10.4) fL Immature Gran % (Auto) % Neut % (Auto) % Lymph % (Auto) % Pettis % (Auto) % Eos % (Auto) % Baso % (Auto) % Neut # (Auto) (1.4-6.5) K/uL Lymph # (Auto) (1.2-3.4) K/uL Pettis # (Auto) (0.11-0.59) K/uL Eos # (Auto) (0-0.5) K/uL Baso # (Auto) (0-0.2) K/uL Immature Gran # (Auto) (0.00-0.02) K/uL RBC Morphology PT (9.0-12.0) Seconds INR (0.9-1.1) APTT (21.0-31.0) Seconds PTT Ratio Sodium 133 L (136-145) mmol/L Potassium 4.6 (3.5-5.1) mmol/L Chloride 94 L (98-107) mmol/L Carbon Dioxide 36 H (21-32) mmol/L Anion Gap 3.0 (3-11) BUN 25 H (7-18) mg/dl Creatinine 1.06 (0.6-1.2) mg/dl Est Cr Clr Drug Dosing 65.1 ml/min Est GFR ( Amer) 60.8 ml/min Est GFR (Non-Af Amer) 52.4 ml/min BUN/Creatinine Ratio 23.6 H (10-20) Glucose 122 H (70-99) mg/dl Calcium 8.6 (8.5-10.1) mg/dl Total Bilirubin 0.3 (0.2-1) mg/dl AST 14 L (15-37) U/L ALT 14 (12-78) U/L Alkaline Phosphatase 66 (45-117) U/L Troponin I 0.060 H* (0-0.045) ng/ml NT-Pro-B Natriuret Pep (0-900) pg/ml Total Protein 6.0 L (6.4-8.2) gm/dl Albumin 1.9 L (3.4-5.0) gm/dl Globulin 4.1 H (2.5-4.0) gm/dl Albumin/Globulin Ratio 0.5 L (0.9-2) Procalcitonin (0-0.5) ng/ml COVID-19 Eval Order SARS-CoV-2 (PCR) (Negative) Blood Type AB Negative Antibody Screen NEGATIVE Crossmatch See Detail Diagnostic Findings KUB 1. Cardiomegaly and radiographic evidence of pulmonary vascular congestion with bilateral pleural effusions 2. Right upper lobe airspace opacities, pneumonia versus asymmetric edema. Clinical and radiographic follow-up are recommended. (1) Anemia Anemia type: unspecified type Qualified Code(s): D64.9 - Anemia, unspecified
[2020-10-13] MEDS ORDERED: HYDROmorphone HCL 2 MG TAB PO PRN (16:44)
[2020-10-13] MEDS ORDERED: DAPTOmycin 900 MG in SYRINGE 0 ML IV ONE (16:44)
[2020-10-13] MEDS: FUROSEMIDE 40 MG in SYRINGE 0 ML IV SCH (18:03)
[2020-10-13] MEDS: PREGABALIN 150 MG CAP PO SCH ×2 (18:10→19:48)
[2020-10-13] MEDS: ACETAMINOPHEN 325 MG TAB PO PRN (19:49)
[2020-10-13] MEDS ORDERED: FUROSEMIDE 40 MG/4 ML VIAL IV SCH (21:00)
[2020-10-13] MEDS: MONTELUKAST SODIUM 10 MG TABLET PO SCH ×2 (22:07→22:13)
[2020-10-13] MEDS: AMITRIPTYLINE HCL 25 MG TAB PO SCH ×2 (22:07→22:13)
[2020-10-13] MEDS: traZODone HCL 50 MG TAB PO SCH ×2 (22:07→22:13)
[2020-10-13] MEDS: ATORVASTATIN 20 MG TAB PO SCH ×2 (22:07→22:13)
--- NOTE | 2020-10-13 22:36 | Communication Note ---
Date of Service: October 13, 2020 Notified by RN of patient's complaint of chest pain. Patient evaluated. Sleeping upon my arrival into the room, arouses easily. Reports pain as epigastric/substernal, similar to this morning's chest pain. Patient again feels like symptoms are due to GERD. No chest pain at this time. EKG reviewed, no acute ST changes. Troponin 0.06 -> 0.04. Diuresing well. Saturating well on chronic 3L O2 via nasal cannula. PE considered less likely given that patient has been receiving DVT prophylaxis at [facility]. Continue to monitor. Repeat Hgb pending for 2200.
[2020-10-13 22:45] LABS: Hematocrit (blood only) 24.9 % (37-47); Hemoglobin 7.9 g/dL (12.0-16.0)
[2020-10-14] MEDS ORDERED: SODIUM CHLORIDE 0.9% 250 ML IV PRN
[2020-10-14] MEDS: LORazepam 1 MG TAB PO PRN ×2 (02:35→20:58)
--- NOTE | 2020-10-14 02:38 | Communication Note ---
Date of Service: October 14, 2020
--- NOTE | 2020-10-14 02:44 | Communication Note ---
Date of Service: October 14, 2020 Patient not interested in endoscopy as per RN.
[2020-10-14] MEDS ORDERED: PANTOprazole 40 MG in SYRINGE 0 ML IV ONE (04:30)
[2020-10-14] MEDS: FUROSEMIDE 40 MG in SYRINGE 0 ML IV SCH ×2 (04:39→17:31)
[2020-10-14 05:57] LABS: Hematocrit (blood only) 28.8 % (37-47); Hemoglobin 8.9 g/dL (12.0-16.0); Mean Corpuscular Hemoglobin 29.1 pg (25-34); Mean Corpuscular Hgb Conc 30.9 g/dL (32-36); Mean Corpuscular Volume 94.1 fL (80-100); Mean Platelet Volume 9.7 fL (7.4-10.4); Platelet Count 236 K/uL (130-400); RDW Coefficient of Variation 15.3 % (11.5-14.5); Red Blood Count 3.06 M/uL (4.2-5.4); White Blood Count 10.92 K/uL (4.8-10.8)
[2020-10-14 06:21] LABS: BUN Creatinine Ratio 23.1 (10-20); Calcium 8.4 mg/dl (8.5-10.1); Creatinine Clr Calc Pharmacy 62.7 ml/min; Est GFR (African American) 58.1 ml/min; Est GFR (Non-African American) 50.1 ml/min; Potassium 4.4 mmol/L (3.5-5.1)
[2020-10-14] MEDS: PREGABALIN 150 MG CAP PO SCH ×3 (07:47→20:51)
[2020-10-14] MEDS: FLUTICASONE/VILANTEROL 100/25MCG 14 PUFFS/INHALER INH SCH (07:48)
[2020-10-14] MEDS: lisinopril 5 MG TAB PO SCH (07:48)
[2020-10-14] MEDS: FERROUS SULFATE 325 MG TAB PO SCH (07:49)
[2020-10-14] MEDS: CITALOPRAM 20 MG TAB PO SCH (07:49)
[2020-10-14] MEDS: CHOLECALCIFEROL 1,000 UNITS 25 MCG TAB PO SCH (07:49)
[2020-10-14] MEDS: METOPROLOL SUCC 25MG EXT REL TAB PO SCH (07:50)
[2020-10-14] MEDS: MULTIVITAMIN TAB PO SCH (07:50)
[2020-10-14] MEDS: UMECLIDINIUM BROMIDE 62.5MCG/BLISTER 7 PUFFS/INHALER INH SCH (07:50)
[2020-10-14] MEDS: LIDOCAINE 5% 1 PATCH TD SCH (07:52)
[2020-10-14] MEDS ORDERED: NON-FORMULARY MEDICATION (Fluticasone-Umeclidin-Vilanter [Trelegy Ellipta] 100-62.5-25 mcg INH SCH (09:00)
[2020-10-14] MEDS ORDERED: DAPTOmycin 500 MG VIAL IV SCH (09:00)
--- NOTE | 2020-10-14 12:15 | Gastroenterology Progress Note ---
Date of Service October 14, 2020 Assessment & Plan (1) Anemia: This is a 70-year-old admitted with CHF vs pneumonia and GI asked to evaluate for acute on chronic anemia without evidence of melena, hematochezia or hematemesis, and BUN is not elevated, suggesting against acute upper GI bleed. She recently underwent EGD earlier this month at an outside facility where gastric ulcer was noted, was also treated for H. pylori. Overnight hemoglobin responded to 1 unit of PRBC, and BUN remained stable, she has had no obvious GI bleeding since admission. On exam, she appears lethargic today, lungs with scattered crackles, and abdomen soft. - Would defer repeat endoscopy at this time given stable hemoglobin and lack of overt GI bleeding. - She is supposed to have repeat EGD 8 weeks after her most recent one to assess ulcer healing and I would recommend that she follow-up with her providers at [place] for this - Would continue daily PPI - Monitor and document GI output - Trend H&H, transfuse PRN carefully given cardiac hx - She can have diet as tolerated today - Appreciate primary team mgmt of her co-morbidities - GI will sign off, please call with questions Thank you for allowing us to participate in the care of this patient. Please call with any acute changes, questions or concerns. Please see addendum below with additional recommendation from my supervising physician. Admission and Anticipated Discharge Date Admission Date: October 13, 2020 Supervising Physician Co-Signing Physician Notes I have seen and examined the patient and discussed the management with Chitra Dickey PA-C. No episodes of overt gi bleeding overnite, hgb stable. Per review of chart- refused endoscopy overnite when discussed with her again and mild issues with chest pain. PE - somnolent, have audible crackles, abd soft nt nd Labs reviewed- hgb stable, bun stable Her anemia is without evidence of an overt gi bleed, bun stable, no further drops in hgb. Recent egd done uli 2 weeks ago by kathy showing h pylori and a gastric ulcer IV ppi transtion to oral at least daily as tolerating po. Continued fup with her regular [place] providers. Subjective Patient seen and examined, chart reviewed. No acute events overnight. HGB improved to 8.9; BUN stable. Has not had obvious GI bleeding including hematemesis, melena or hematochezia. Presently is lethargic during exam today. Review of Systems Review of Systems: Unobtainable due to pt sleeping Physical Exam Constitutional: well developed Eyes: + anicteric sclerae Respiratory: + scattered crackles Cardiovascular: Rate/Rhythm: regular rate and regular rhythm Gastrointestinal (Abdomen): normal bowel sounds, soft, nontender, no hepatosplenomegaly Skin: no rashes, warm and dry Psychiatric: pt lethargic today Results & Data ([facility]) Vital Signs (Past 12 Hours) Vital Signs Temp Pulse Pulse Resp BP BP BP 10/14/20 11:20 37.5 C 84 18 113/46 L 10/14/20 08:00 86 10/14/20 07:00 36.8 C 108 H 18 123/41 L 10/14/20 04:25 37.1 C 83 22 115/52 L 10/14/20 02:57 36.9 C 83 20 127/44 L 10/14/20 01:57 37.3 C 81 22 137/52 L 10/14/20 01:27 37.4 C 83 18 141/42 H 10/14/20 01:12 36.7 C 83 18 150/48 H 10/14/20 00:54 37.3 C 81 19 105/48 L 10/14/20 00:20 37.3 C 68 18 105/48 L Pulse Ox 10/14/20 11:20 91 10/14/20 08:00 10/14/20 07:00 96 10/14/20 04:25 94 10/14/20 02:57 91 10/14/20 01:57 92 10/14/20 01:27 94 10/14/20 01:12 93 10/14/20 00:54 95 10/14/20 00:20 91 Laboratory Results 10/14/20 10/14/20 10/13/20 Range/Units 05:39 05:39 22:29 WBC 10.92 H (4.8-10.8) K/uL RBC 3.06 L (4.2-5.4) M/uL Hgb 8.9 L (12.0-16.0) g/dL Hct 28.8 L (37-47) % MCV 94.1 (80-100) fL MCH 29.1 (25-34) pg MCHC 30.9 L (32-36) g/dL RDW Std Deviation 52.0 H (36.4-46.3) fL RDW Coeff of Leo 15.3 H (11.5-14.5) % Plt Count 236 (130-400) K/uL MPV 9.7 (7.4-10.4) fL Sodium 133 L (136-145) mmol/L Potassium 4.4 (3.5-5.1) mmol/L Chloride 92 L (98-107) mmol/L Carbon Dioxide 37 H (21-32) mmol/L Anion Gap 4.0 (3-11) BUN 25 H (7-18) mg/dl Creatinine 1.10 (0.6-1.2) mg/dl Est Cr Clr Drug Dosing 62.7 ml/min Est GFR ( Amer) 58.1 ml/min Est GFR (Non-Af Amer) 50.1 ml/min BUN/Creatinine Ratio 23.1 H (10-20) Glucose 116 H (70-99) mg/dl Calcium 8.4 L (8.5-10.1) mg/dl Troponin I 0.050 H* (0-0.045) ng/ml Blood Type Antibody Screen Crossmatch 10/13/20 10/13/20 10/13/20 Range/Units 22:29 17:17 10:00 WBC (4.8-10.8) K/uL RBC (4.2-5.4) M/uL Hgb 7.9 L (12.0-16.0) g/dL Hct 24.9 L (37-47) % MCV (80-100) fL MCH (25-34) pg MCHC (32-36) g/dL RDW Std Deviation (36.4-46.3) fL RDW Coeff of Leo (11.5-14.5) % Plt Count (130-400) K/uL MPV (7.4-10.4) fL Sodium (136-145) mmol/L Potassium (3.5-5.1) mmol/L Chloride (98-107) mmol/L Carbon Dioxide (21-32) mmol/L Anion Gap (3-11) BUN (7-18) mg/dl Creatinine (0.6-1.2) mg/dl Est Cr Clr Drug Dosing ml/min Est GFR ( Amer) ml/min Est GFR (Non-Af Amer) ml/min BUN/Creatinine Ratio (10-20) Glucose (70-99) mg/dl Calcium (8.5-10.1) mg/dl Troponin I 0.045 (0-0.045) ng/ml Blood Type AB Negative Antibody Screen NEGATIVE Crossmatch See Detail (1) Anemia Anemia type: unspecified type Qualified Code(s): D64.9 - Anemia, unspecified
--- NOTE | 2020-10-14 12:27 | Hospitalist Progress Note ---
Date of Service October 14, 2020 Assessment & Plan (1) Congestive heart failure: Patient is 70-year-old female with past medical history of diastolic heart failure, COPD, anxiety, depression, CKD stage III, hypertension, chronic indwelling Gonzalez catheter and GERD presented to the ED with shortness of breath and acute on chronic anemia. Globin of 7.7 on admission. Chest x-ray with some pulmonary vascular congestion and some right upper lobe airspace opacities patient denies any cough, fever and absence of any leukocytosis. proBNP of 11,000 on admission. Cardiac enzymes were not concerning. Does use 3 L of nasal cannula at baseline, currently on 4 L of nasal cannula. Continue with IV Lasix 40 mg twice daily. Continue to monitor ins and outs along with daily weights. Cariology evaluation is pending. Appreciate gastroenterology input. No plan for scope today. Start patient clear liquid diet. Continue with PPI IV. Transfuse for hemoglobin less than 8. Trend daily CBC. Continue with [employer]IN[employer]OUS [employer] medications. (2) Elevated troponin: (3) Anemia: (4) Acute on chronic diastolic CHF (congestive heart failure): (5) Right femoral fracture: (6) Morbid obesity: (7) COPD (chronic obstructive pulmonary disease): (8) Weakness: (9) GERD (gastroesophageal reflux disease): (10) Anxiety: (11) History of pulmonary embolism: (12) Hyperlipidemia: (13) Depression: (14) CKD (chronic kidney disease) stage 3, GFR 30-59 ml/min: (15) Hypertension: (16) Chronic indwelling Gonzalez catheter: Admission and Anticipated Discharge Date Admission Date: October 13, 2020 Subjective Patient was sleeping upon my arrival. Was able to wake her up with sternal rub. Was a bit confused. She was unaware where she is. Reports shortness of breath is improved. Denies any chest pain, abdominal pain, diarrhea or dysuria. Review of Systems Review of Systems: All systems reviewed & are unremarkable except as noted in HPI & below Physical Exam Physical Exam: General: somnolent HENT: NCAT, MMM, EOMI Eyes: PERRLA Neck: Supple, normal range of motion CVS: normal rate and rhythm Resp: b/l decrease breath sounds Abdomen: Soft, ND/NT, +BS Extremities: No c/c/e Neuro: face symmetric, strength grossly equal, no focal deficit Skin: warm and dry, no rashes/lesions/errythema MSK: no joint swelling/erythema Results & Data Results & Data ([facility]) Vital Signs (Past 12 Hours) Vital Signs Temp Pulse Pulse Resp BP BP BP 10/14/20 11:20 37.5 C 84 18 113/46 L 10/14/20 08:00 86 10/14/20 07:00 36.8 C 108 H 18 123/41 L 10/14/20 04:25 37.1 C 83 22 115/52 L 10/14/20 02:57 36.9 C 83 20 127/44 L 10/14/20 01:57 37.3 C 81 22 137/52 L 10/14/20 01:27 37.4 C 83 18 141/42 H 10/14/20 01:12 36.7 C 83 18 150/48 H 10/14/20 00:54 37.3 C 81 19 105/48 L 10/14/20 00:20 37.3 C 68 18 105/48 L Pulse Ox 10/14/20 11:20 91 10/14/20 08:00 10/14/20 07:00 96 10/14/20 04:25 94 10/14/20 02:57 91 10/14/20 01:57 92 10/14/20 01:27 94 10/14/20 01:12 93 10/14/20 00:54 95 10/14/20 00:20 91 (1) Congestive heart failure Heart failure chronicity: acute Heart failure type: unspecified Qualified Code(s): I50.9 - Heart failure, unspecified (2) Anemia Anemia type: unspecified type Qualified Code(s): D64.9 - Anemia, unspecified (3) COPD (chronic obstructive pulmonary disease) COPD type: unspecified COPD Qualified Code(s): J44.9 - Chronic obstructive pulmonary disease, unspecified
--- NOTE | 2020-10-14 12:43 | Cardiology Consultation ---
Date of Consultation October 14, 2020 Assessment & Plan (1) Musculoskeletal chest pain: (2) Narcotic dependence: (3) Elevated troponin: (4) Anemia: (5) GERD (gastroesophageal reflux disease): (6) CKD (chronic kidney disease) stage 3, GFR 30-59 ml/min: (7) COPD (chronic obstructive pulmonary disease): Musculoskeletal chest pain secondary to left fourth rib stuck in exhalation and likely sternal contusion secondary to the need for recurrent sternal rubs to arouse patient from sleep. Troponin level above normal lab value likely secondary to prerenal azotemia and possible component of type II myocardial ischemic demand with significant anemia. No wall motion abnormalities on echocardiogram Patient does not examine his volume overloaded, I do not see any component of heart failure, will discontinue IV Lasix. Restart outpatient p.o. dose in the a.m. No further cardiac test intervention necessary at this time. Given valvular heart disease recommend maintaining hemoglobin greater than 9. Okay to DC to rehab or off telemetry from a cardiac standpoint. No other medication changes were made at this time. History of Present Illness Attending Physician: Vivian Alcazar MD History of Present Illness Ms. Williamson is a 70-year-old woman who presented to [facility] on 10/13/2020 from [facility] with reports of chest pain and shortness of breath. Patient has been admitted to rehab since September 30 after suffering a right hip fracture and subsequent wound infection. Currently, she is difficult to arise but states that she has been having left-sided substernal chest pain off and on for the last few hours she describes it as sharp and stabbing pain worse with deep inhalation. She denies any associated shortness of breath, palpitati ons, lightheadedness, dizziness or syncope. Nursing reports, the patient is requesting pain medications [id number] but then requires significant sternal rubbing to arouse her. Patient was seen by myself as an outpatient in 2018 for history of diastolic dysfunction aortic stenosis, however, she has failed to follow-up since then. PAST MEDICAL HISTORY: 1. Severe COPD on home O2. 2. Small bowel obstruction. 3. History of anxiety disorder. 4. Depression. 5. Dyslipidemia. 6. GERD. 7. Neuropathy. 8. Pulmonary embolism. 9. Diastolic dysfunction with normal LV systolic function. 10. Moderate aortic stenosis. Allergies Allergy/AdvReac Type Severity Reaction Status Date / Time No Known Allergies Allergy Verified 10/13/20 10:10 Home Medications Medication Instructions Recorded Confirmed Type ergocalciferol (vitamin D2) 50,000 unit PO WK 10/07/18 10/13/20 History [Vitamin D2] furosemide [Lasix] 20 mg PO BID 10/07/18 10/13/20 History montelukast [Singulair] 10 mg PO HS 10/07/18 10/13/20 History pantoprazole [Protonix] 40 mg PO QAM 10/07/18 10/13/20 History trazodone 50 mg PO HS 10/07/18 10/13/20 History metoprolol succinate [Toprol XL] 25 mg PO QAM 04/30/19 10/13/20 History aspirin 81 mg PO QAM 06/14/19 10/13/20 History lorazepam [Ativan] 1 mg PO TID PRN 07/13/20 10/13/20 History ascorbic acid (vitamin C) 500 mg 500 mg PO BID 08/27/20 10/13/20 History tablet citalopram 20 mg tablet 10 mg PO QAM tab 08/27/20 10/13/20 History guaifenesin 100 mg/5 mL oral liquid 100 mg PO Q4H PRN ml 08/27/20 10/13/20 History multivitamin 1 tab PO QAM 09/01/20 10/13/20 History Trelegy Ellipta 1 inh INHALATION QAM 09/13/20 10/13/20 History ondansetron HCl 4 mg PO Q6H PRN 09/13/20 10/13/20 History acetaminophen 650 mg PO Q4H PRN 10/13/20 10/13/20 History amitriptyline 25 mg PO HS 10/13/20 10/13/20 History atorvastatin 20 mg PO HS 10/13/20 10/13/20 History bisacodyl 10 mg DE DAILY PRN 10/13/20 10/13/20 History cholecalciferol (vitamin D3) 125 mcg PO DAILY 10/13/20 10/13/20 History [Vitamin D3] daptomycin 900 mg IV DAILY 10/13/20 10/13/20 History docusate sodium 100 mg PO BID 10/13/20 10/13/20 History enoxaparin [Lovenox] 40 mg SUBCUT Q12H 10/13/20 10/13/20 History ferrous sulfate 325 mg PO DAILY 10/13/20 10/13/20 History hydromorphone 1 mg PO Q4H PRN 10/13/20 10/13/20 History ipratropium-albuterol [Combivent 1 puff INHALATION QID PRN 10/13/20 10/13/20 Hi story Respimat] lidocaine 5 % topical patch 1 patch TOPICAL DAILY ea 10/13/20 History lisinopril 5 mg PO DAILY 10/13/20 10/13/20 History magnesium hydroxide [Milk of 30 ml PO DAILY PRN 10/13/20 10/13/20 History Magnesia] naloxone [Narcan] 0.1 mg INTRANASAL UD 10/13/20 10/13/20 History polyethylene glycol 3350 [Miralax] 17 g PO DAILY PRN 10/13/20 10/13/20 History pregabalin 150 mg PO TID 10/13/20 10/13/20 History sennosides-docusate sodium 1 tab-cap PO DAILY PRN 10/13/20 10/13/20 History [Senokot-S] simethicone 80 mg PO TID PRN 10/13/20 10/13/20 History sodium phosphates [Fleet Enema] 118 ml DE DAILY PRN 10/13/20 10/13/20 History Patient History Medical History Anxiety Chronic indwelling Gonzalez catheter CKD (chronic kidney disease) stage 3, GFR 30-59 ml/min Baseline creatine around 1.2 COPD (chronic obstructive pulmonary disease) on 3 liters of oxygen per records Depression Diastolic CHF due to valvular disease GERD (gastroesophageal reflux disease) History of pulmonary embolism 2013 Hyperlipidemia Hypertension Lumbar radiculopathy Macular degeneration Moderate aortic stenosis Per 07/14/20 ECHO: PATO 1.3-1.6 cm; AV peak velocity 3.52 m/s; AV mean gradient 21.1 mmHg Morbid obesity Poor vision Recurrent UTI Urinary retention with incomplete bladder emptying Surgical History History of cholecystectomy History of hysterectomy History of right knee surgery History of surgery Right distal femur periprosthetic open reduction 07/14/20 and right femur I&D History of total left knee replacement History of total right hip arthroplasty History of total right knee replacement Family History Other Cancer Social History Smoking Status: Former smoker Second Hand Exposure: No; Do You Dip or Chew Tobacco: No; Tobacco Cessation Education Requested by Patient: No Hx Alcohol Use: No Hx Substance Use: No Preferred Language: Sammarinese Communication Ability: Effective Central Services Tech Required: No Beliefs That Will Affect Care: None marital status: / Current Living Situation: Alone Current Living Situation Comment: [facility] current occupational status: retired Other Information That Helps Us Care for You: No Feels Safe at Home: No Is there a partner from a previous relationship who is making you feel unsafe now?: No Any Concerns about Your Family Situation: No Would You Like to Speak to Someone About Your Situation: No Safety Concerns: Feels Safe At This Time Assistive Devices: Oxygen - Continuous Review of Systems Review of Systems: All systems reviewed & are unremarkable except as noted in HPI & below Physical Exam Physical Exam: Physical Exam: General: Lethargic. Somewhat difficult to arouse from sleep. Awake, alert and oriented x 3. No acute distress. HEENT: Normocephalic, atraumatic. Pupils equal, round and reactive to light and accommodation. Extraocular muscles are intact. Anicteric sclera. Moist mucous membranes. Neck: No JVD. No bruit. Cardiovascular: Regular. No S-4. Normal S-1 and S-2. No S-3. No murmurs, rubs or gallops. Pulmonary: Clear to auscultation bilaterally. No rales, rhonchi, or wheezing. Abdomen: Bowel sounds x 4, soft. No rebound, guarding or tenderness. No organomegaly. Extremities: No clubbing, cyanosis or edema. +2 pedal pulses bilaterally. Skin: Warm and dry. Musculoskeletal: Direct palpation of the left fourth rib head was able to reproduce patient's pain and left fourth rib found to be stuck in exhalation. Results & Data ([facility]) Vital Signs (Past 12 Hours) Vital Signs Temp Pulse Pulse Resp BP BP BP 10/14/20 11:20 37.5 C 84 18 113/46 L 10/14/20 08:00 86 10/14/20 07:00 36.8 C 108 H 18 123/41 L 10/14/20 04:25 37.1 C 83 22 115/52 L 10/14/20 02:57 36.9 C 83 20 127/44 L 10/14/20 01:57 37.3 C 81 22 137/52 L 10/14/20 01:27 37.4 C 83 18 141/42 H 10/14/20 01:12 36.7 C 83 18 150/48 H 10/14/20 00:54 37.3 C 81 19 105/48 L Pulse Ox 10/14/20 11:20 91 10/14/20 08:00 10/14/20 07:00 96 10/14/20 04:25 94 10/14/20 02:57 91 10/14/20 01:57 92 10/14/20 01:27 94 10/14/20 01:12 93 10/14/20 00:54 95
--- NOTE | 2020-10-14 13:20 | Electrocardiogram Report ---
Test Reason : Blood Pressure : / mmHG Vent. Rate : 080 BPM Atrial Rate : 080 BPM P-R Int : 160 ms QRS Dur : 094 ms QT Int : 374 ms P-R-T Axes : 060 047 055 degrees QTc Int : 431 ms Normal sinus rhythm Prominent T wave amplitude Otherwise Normal ECG When compared with ECG of 13-OCT-2020 09:57, No significant change was found Confirmed by Delfino Leone ([id number]) on 10/14/2020 1:20:11 PM Referred By: [facility] Confirmed By:Delfino Leone
--- NOTE | 2020-10-14 13:52 | Electrocardiogram Report ---
Test Reason : Blood Pressure : / mmHG Vent. Rate : 101 BPM Atrial Rate : 101 BPM P-R Int : 192 ms QRS Dur : 090 ms QT Int : 336 ms P-R-T Axes : 047 047 050 degrees QTc Int : 435 ms Sinus tachycardia Prominent T wave amplitude Otherwise normal ECG When compared with ECG of 13-OCT-2020 21:08, (unconfirmed) No significant change was found Confirmed by Delfino Leone ([id number]) on 10/14/2020 1:52:14 PM [facility] Confirmed By:Delfino Leone
--- NOTE | 2020-10-14 13:56 | XRay Report ---
XR knee LT 1 or 2V routine CLINICAL HISTORY: Left knee erythema. COMPARISON: Left femur radiographs November 23, 2016. CT of the left lower extremity December 18, 2016. FINDINGS: Alignment of the total left knee arthroplasty is anatomic. No periprosthetic fracture or l ucency is identified. No joint effusion is evident. No osseous lesion is noted. IMPRESSION: Status post total left knee arthroplasty. No periprosthetic fracture or lucency. ACT 112: Negative or not required by law. Electronically signed by: Allen Pham M.D. 10/14/2020 1:54 PM
[2020-10-14] MEDS ORDERED: DAPTOmycin 750 MG in SYRINGE 0 ML IV SCH (16:00)
[2020-10-14] MEDS ORDERED: SOD PHOSPHATE/SOD BIPHOSPHATE ENEMA 132 ML BTL PR ONE (18:07)
[2020-10-14] MEDS ORDERED: SOD PHOSPHATE/SOD BIPHOSPHATE ENEMA 132 ML BTL PR STA ×2 (18:07→18:33)
[2020-10-14] MEDS: AMITRIPTYLINE HCL 25 MG TAB PO SCH (20:51)
[2020-10-14] MEDS: ATORVASTATIN 20 MG TAB PO SCH (20:51)
[2020-10-14] MEDS: MONTELUKAST SODIUM 10 MG TABLET PO SCH (20:51)
[2020-10-14] MEDS: PANTOprazole 40 MG in SYRINGE 0 ML IV SCH (20:52)
[2020-10-14] MEDS: traZODone HCL 50 MG TAB PO SCH (20:58)
[2020-10-14] MEDS: ACETAMINOPHEN 325 MG TAB PO PRN (20:58)
[2020-10-15] MEDS: ACETAMINOPHEN 325 MG TAB PO PRN ×2 (01:37→17:55)
[2020-10-15] MEDS ORDERED: ALBUT/IPRATROP 3MG/0.5MG NEB 3 ML VIAL NEB STA (02:53)
[2020-10-15] MEDS ORDERED: methylPREDNISolone 20 MG in SYRINGE 0 ML IV STA (03:07)
[2020-10-15] MEDS ORDERED: methylPREDNISolone 125 MG/2 ML VIAL IV STA (03:23)
[2020-10-15] MEDS ORDERED: ERTAPENEM SODIUM 1,000 MG in SODIUM CHLORIDE 0.9% 50 ML IV STA (03:42)
[2020-10-15] MEDS ORDERED: FUROSEMIDE 40 MG in SYRINGE 0 ML IV ONE (03:44)
[2020-10-15] MEDS ORDERED: ALBUMIN 25% 12.5 GM/50 ML VIAL IV ONE (03:44)
--- NOTE | 2020-10-15 03:45 | Communication Note ---
Date of Service: October 15, 2020 Notified by RN around 3 AM of worsening oxygenation as per RN. O2 sats 70s to 80s at 10 L. Patient sleepy as per RN. Respirations are coarse sounding as per RN. Thick mendez respiratory secretions coughed up and suction as per RN. Chest x-ray as per my interpretation : Congestion, right-sided infiltrate AP Worsening hypoxemic respiratory failure Multifactorial: CHF on diuretic Rx Possible COPD exacerbation secondary to HAP, possible aspiration given emesis symptoms as per H&P on admission Supplemental O2 Baseline ABG Lasix albumin 1 dose Ertapenem for possible aspiration pneumonia (favored over Zosyn given fluid overload concerns) Steroid, nebs RTC Will relay to AM provider. ADDENDUM : Serum creatinine noted to be 1.34 AP ARF Hold IV diuretic orders and lisinopril. Will relay to AM provider.
[2020-10-15 04:01] LABS: Basophils # (auto) 0.02 K/uL (0-0.2); Basophils % (auto) 0.2 %; Eosinophils # (auto) 0.65 K/uL (0-0.5); Eosinophils % (auto) 6.1 %; Hematocrit (blood only) 27.7 % (37-47); Hemoglobin 8.6 g/dL (12.0-16.0); Immature Granulocytes # (auto) 0.04 K/uL (0.00-0.02); Immature Granulocytes % (auto) 0.4 %; Lymphocytes # (auto) 1.29 K/uL (1.2-3.4); Lymphocytes % (auto) 12.2 %; Mean Corpuscular Hemoglobin 30.1 pg (25-34); Mean Corpuscular Volume 96.9 fL (80-100); Mean Platelet Volume 9.8 fL (7.4-10.4); Monocytes # (auto) 1.03 K/uL (0.11-0.59); Monocytes % (auto) 9.7 %; Neutrophils # (auto) 7.54 K/uL (1.4-6.5); Neutrophils % (auto) 71.4 %; Platelet Count 241 K/uL (130-400); RDW Coefficient of Variation 15.1 % (11.5-14.5); RDW Standard Deviation 53.6 fL (36.4-46.3); Red Blood Count 2.86 M/uL (4.2-5.4); White Blood Count 10.57 K/uL (4.8-10.8)
[2020-10-15 04:08] LABS: Base Excess ABG 11.2 mEq/L (-9-1.8); HCO3 ABG 39 mmol/L (19-24); Oxygen Saturation ABG 91.7 % (90-95); PCO2 ABG 70 mmHg (35-46); PO2 ABG 60 mmHg (80-95); pH ABG 7.36 (7.35-7.45)
[2020-10-15] MEDS ORDERED: ERTAPENEM CONSULT ACTIVE PRN (04:13)
[2020-10-15 04:14] LABS: Allen Test Pos (Pos)
[2020-10-15 04:14] LABS: Partial Thromboplastin Ratio 0.9; Partial Thromboplastin Time 24.3 Seconds (21.0-31.0)
[2020-10-15 04:18] LABS: BUN Creatinine Ratio 21.6 (10-20); Calcium 9.1 mg/dl (8.5-10.1); Creatinine Clr Calc Pharmacy 46.9 ml/min; Est GFR (African American) 45.8 ml/min; Est GFR (Non-African American) 39.5 ml/min; Magnesium 2.6 mg/dl (1.8-2.4); Phosphorus 4.1 mg/dl (2.5-4.9); Potassium 4.2 mmol/L (3.5-5.1)
[2020-10-15] MEDS ORDERED: XOPENEX/ATROVENT 1.25mg/0.5MG NEB COMBO NEB SCH (07:00)
[2020-10-15] MEDS: IPRATROPIUM BROMIDE NEB SOLN 0.02% 2.5 ML VIAL INH SCH ×3 (07:06→19:12)
[2020-10-15] MEDS: LEVALBUTEROL 1.25MG/0.5ML NEB INH SCH ×3 (07:06→19:12)
--- NOTE | 2020-10-15 08:21 | XRay Report ---
XR chest 1V portable CLINICAL HISTORY: Hypoxia COMPARISON STUDY: 10/13/2020 FINDINGS: The heart is enlarged. There are progressive bilateral pulmonary airspace opacities. There are persistent bilateral pleural effusions. There is been interval placement of a right-sided cathete r. The tip projects over the superior vena cava. IMPRESSION: 1. Cardiomegaly and progressive bilateral pulmonary airspace opacities. Multifocal pneumonia versus a symmetric pulmonary edema. Clinical and radiographic follow-up are recommended. ACT 112: Negative or not required by law. Electronically signed by: Rakan Azul M.D. 10/15/2020 8:20 AM
[2020-10-15] MEDS: ALTEPLASE, RECOMBINANT 1 MG/ML 2ML VIAL INSTIL SCH (08:35)
[2020-10-15] MEDS ORDERED: LINEZOLID CONSULT ACTIVE PRN (08:36)
[2020-10-15] MEDS ORDERED: LINEZOLID 600 MG/300 ML D5W IV SCH (08:45)
--- NOTE | 2020-10-15 08:49 | Pulmonary Consultation ---
Date of Consultation October 15, 2020 Assessment & Plan (1) Pulmonary infiltrate: CT chest 10/15/2020 personally reviewed: Centrilobular emphysema appreciated, consolidative process appreciated in bilateral upper and lower lobes more dense in the right upper lobe, bilateral pleural effusion more on the right side. Minimal mediastinal lymphadenopathy --Acute on chronic hypoxic hypercapnic respiratory failure Etiology is likely aspiration Patient is also on daptomycin with peripheral eosinophilia up to 650 Daptomycin induced hypersensitivity syndrome is also in the differential We recommend changing the antibiotics to cover for anaerobes as well as gram negatives Stop daptomycin for the time being and consider substituting it with linezolid or vancomycin Hypercapnia is also from underlying COPD as well as central apnea from opioids Continue with O2 supplementation to keep O2 saturation between 88-92% Patient is not a good candidate for BiPAP because of risk of aspiration is high --Bilateral pleural effusion Etiology is multifactorial CKD stage III, diastolic CHF as well as potentially malnutrition with albumin of 1.9 playing a role Recommend diuresis as tolerated --COPD with emphysema Continue with Breo and Incruse Mucinex --Pulmonary hypertension Likely a combination of type II and type III Treatment as above --DNR/DNI Plan: Stop daptomycin Cover for aspiration pneumonia with anaerobes and pseudomonal coverage Diuresis as tolerated Do not over oxygenate the patient If the patient requires more than 15 L with recommend high flow. Not a candidate for BiPAP as the risk of aspiration is high Case discussed with Dr. Dhaliwal Please note the above document was generated using voice recognition software. It may contain grammatical, syntax or spelling errors.Any formal questions or concerns about the content, text or information contained within the body of this dictation should be directly addressed to the provider for clarification. (2) Peripheral eosinophilia: (3) Acute on chronic respiratory failure with hypoxia and hypercapnia: (4) Aspiration pneumonia: (5) Pulmonary hypertension: History of Present Illness Attending Physician: Dada Dhaliwal MD History of Present Illness 70-year-old female with complex past medical history of diastolic CHF, myoclonus, COPD, anxiety, PE, CKD 3, cellulitis of the right lower extremity on daptomycin was admitted for diastolic CHF Pulmonary consulted as patient likely had aspiration event and the chest x-ray showed worsening with increasing oxygen requirement Patient is usually on 2 L nasal cannula but she was requiring 10 L. Patient also has peripheral eosinophilia on the labs which is new compared to before. Daptomycin could be one of the reason At the time of examination patient was somnolent. She was on 8 L nasal cannula saturating 93%. I went down to 7 L. Patient denies any chest pain. She was lying on the right side. Did complain of pain in the right lower extremity. Patient was a poor historian. As per the nurse patient had an episode of nausea and vomiting overnight which likely related to aspiration. Patient has been getting pain medication [id number] for the pain in the right extremity as well as low back pain. That could be one of the reasons how she aspirated. Social history: Ex-smoker with approximately greater than [id number] smoking history Allergies Allergy/AdvReac Type Severity Reaction Status Date / Time No Known Allergies Allergy Verified 10/13/20 10:10 Home Medications Medication Instructions Recorded Confirmed Type ergocalciferol (vitamin D2) 50,000 unit PO WK 10/07/18 10/13/20 History [Vitamin D2] furosemide [Lasix] 20 mg PO BID 10/07/18 10/13/20 History montelukast [Singulair] 10 mg PO HS 10/07/18 10/13/20 History pantoprazole [Protonix] 40 mg PO QAM 10/07/18 10/13/20 History trazodone 50 mg PO HS 10/07/18 10/13/20 History metoprolol succinate [Toprol XL] 25 mg PO QAM 04/30/19 10/13/20 History aspirin 81 mg PO QAM 06/14/19 10/13/20 History lorazepam [Ativan] 1 mg PO TID PRN 07/13/20 10/13/20 History ascorbic acid (vitamin C) 500 mg 500 mg PO BID 08/27/20 10/13/20 History tablet citalopram 20 mg tablet 10 mg PO QAM tab 08/27/20 10/13/20 History guaifenesin 100 mg/5 mL oral liquid 100 mg PO Q4H PRN ml 08/27/20 10/13/20 History multivitamin 1 tab PO QAM 09/01/20 10/13/20 History Trelegy Ellipta 1 inh INHALATION QAM 09/13/20 10/13/20 History ondansetron HCl 4 mg PO Q6H PRN 09/13/20 10/13/20 History acetaminophen 650 mg PO Q4H PRN 10/13/20 10/13/20 History amitriptyline 25 mg PO HS 10/13/20 10/13/20 History atorvastatin 20 mg PO HS 10/13/20 10/13/20 History bisacodyl 10 mg LA DAILY PRN 10/13/20 10/13/20 History cholecalciferol (vitamin D3) 125 mcg PO DAILY 10/13/20 10/13/20 History [Vitamin D3] daptomycin 900 mg IV DAILY 10/13/20 10/13/20 History docusate sodium 100 mg PO BID 10/13/20 10/13/20 History enoxaparin [Lovenox] 40 mg SUBCUT Q12H 10/13/20 10/13/20 History ferrous sulfate 325 mg PO DAILY 10/13/20 10/13/20 History hydromorphone 1 mg PO Q4H PRN 10/13/20 10/13/20 History ipratropium-albuterol [Combivent 1 puff INHALATION QID PRN 10/13/20 10/13/20 History Respimat] lidocaine 5 % topical patch 1 patch TOPICAL DAILY ea 10/13/20 History lisinopril 5 mg PO DAILY 10/13/20 10/13/20 History magnesium hydroxide [Milk of 30 ml PO DAILY PRN 10/13/20 10/13/20 History Magnesia] naloxone [Narcan] 0.1 mg INTRANASAL UD 10/13/20 10/13/20 History polyethylene glycol 3350 [Miralax] 17 g PO DAILY PRN 10/13/20 10/13/20 History pregabalin 150 mg PO TID 10/13/20 10/13/20 History sennosides-docusate sodium 1 tab-cap PO DAILY PRN 10/13/20 10/13/20 History [Senokot-S] simethicone 80 mg PO TID PRN 10/13/20 10/13/20 History sodium phosphates [Fleet Enema] 118 ml LA DAILY PRN 10/13/20 10/13/20 History Patient History Medical History Anxiety Chronic indwelling Gonzalez catheter CKD (chronic kidney disease) stage 3, GFR 30-59 ml/min Baseline creatine around 1.2 COPD (chronic obstructive pulmonary disease) on 3 liters of oxygen per records Depression Diastolic CHF due to valvular disease GERD (gastroesophageal reflux disease) History of pulmonary embolism 2013 Hyperlipidemia Hypertension Lumbar radiculopathy Macular degeneration Moderate aortic stenosis Per 07/14/20 ECHO: PATO 1.3-1.6 cm; AV peak velocity 3.52 m/s; AV mean gradient 21.1 mmHg Morbid obesity Poor vision Recurrent UTI Urinary retention with incomplete bladder emptying Surgical History History of cholecystectomy History of hysterectomy History of right knee surgery History of surgery Right distal femur periprosthetic open reduction 07/14/20 and right femur I&D History of total left knee replacement History of total right hip arthroplasty History of total right knee replacement Family History Other Cancer Social History Smoking Status: Former smoker Second Hand Exposure: No; Do You Dip or Chew Tobacco: No; Tobacco Cessation Education Requested by Patient: No Hx Alcohol Use: No Hx Substance Use: No Preferred Language: Portuguese Communication Ability: Effective Marketing Financial Analyst Required: No Beliefs That Will Affect Care: None marital status: / Current Living Situation: Alone Current Living Situation Comment: [facility] resident current occupational status: retired Other Information That Helps Us Care for You: No Feels Safe at Home: No Is there a partner from a previous relationship who is making you feel unsafe now?: No Any Concerns about Your Family Situation: No Would You Like to Speak to Someone About Your Situation: No Safety Concerns: Feels Safe At This Time Assistive Devices: Oxygen - Continuous Review of Systems Review of Systems: All systems reviewed & are unremarkable except as noted in HPI & below Physical Exam Physical Exam: Constitutional: No acute distress HEENT: EOMI, PERRLA Respiratory system: Decreased air entry bilaterally, no wheeze, no rhonchi, positive crackles bilaterally more on the right side CVS: S1-S2 positive, positive 3 out of 6 murmur appreciated best at the apex Abdomen: Soft, nontender, nondistended, positive bowel sounds x4, obese Extremities: +2 pulses bilaterally radialis/ dorsalis pedis, no cyanosis, +2 ankle edema bilaterally, erythema appreciated at the site of the incision on the right lateral aspect of the knee, positive dolor Neuro: Awake alert oriented to self and place, patient is somnolent Psych: Normal mood and affect G/U: Positive Gonzalez Skin: no rashes, warm and dry Lymphatic: no cervical or axillary lymphadenopathy Results & Data Results & Data ([facility]) Vital Signs (Past 12 Hours) Vital Signs Temp Pulse Pulse Resp BP BP Pulse Ox 10/15/20 07:46 37.9 C H 87 18 157/51 H 90 10/15/20 07:07 104 H 14 88 L 10/15/20 03:18 36.8 C 70 17 104/38 L 90 10/14/20 23:46 36.9 C 70 19 106/34 L 88 L 10/14/20 23:00 106 H PG Care Time/CCT Total # of Minutes Spent Total Time Spent with Patient: Total time spent is greater than 50% in coordination of care (as documented) at patient's floor/unit and/or counseling patient: Coding Level of Care Code 34027 Initial Inpt Care Lvl 3 Diagnoses Pulmonary infiltrate R91.8 Peripheral eosinophilia D72.19 Acute on chronic respiratory failure with hypoxia and hypercapnia J96.21; J96.22 Aspiration pneumonia J69.0 Pulmonary hypertension I27.20
[2020-10-15] MEDS ORDERED: VANCOMYCIN CONSULT ACTIVE PRN (09:12)
[2020-10-15] MEDS ORDERED: VANCOMYCIN HCL 2,250 MG in SODIUM CHLORIDE 0.9% 500 ML IV ONE (09:15)
[2020-10-15 09:16] LABS: Albumin Level 1.8 gm/dl (3.4-5.0); Bilirubin Direct 0.1 mg/dl (0-0.2); Bilirubin,Total 0.3 mg/dl (0.2-1); Total Protein 5.9 gm/dl (6.4-8.2)
[2020-10-15] MEDS: CEFEPIME 2,000 MG in SYRINGE 0 ML IV SCH ×2 (09:44→20:31)
[2020-10-15] MEDS: PREGABALIN 150 MG CAP PO SCH ×3 (09:44→20:31)
[2020-10-15] MEDS: guaiFENesin 600 MG TABCR PO SCH ×2 (09:44→20:33)
[2020-10-15] MEDS: PANTOprazole 40 MG in SYRINGE 0 ML IV SCH ×2 (09:44→20:31)
[2020-10-15] MEDS: MULTIVITAMIN TAB PO SCH (09:45)
[2020-10-15] MEDS: FERROUS SULFATE 325 MG TAB PO SCH (09:45)
[2020-10-15] MEDS: LIDOCAINE 5% 1 PATCH TD SCH (09:45)
[2020-10-15] MEDS: CHOLECALCIFEROL 1,000 UNITS 25 MCG TAB PO SCH (09:45)
[2020-10-15] MEDS: METOPROLOL SUCC 25MG EXT REL TAB PO SCH (09:45)
[2020-10-15] MEDS: UMECLIDINIUM BROMIDE 62.5MCG/BLISTER 7 PUFFS/INHALER INH SCH (09:46)
[2020-10-15] MEDS: CITALOPRAM 20 MG TAB PO SCH (09:46)
[2020-10-15] MEDS: FLUTICASONE/VILANTEROL 100/25MCG 14 PUFFS/INHALER INH SCH (09:46)
--- NOTE | 2020-10-15 10:42 | Progress Notes ---
DATE: 10/15/2020 The patient was admitted to the hospital for GI bleed and she may have developed pneumonia. She has recently been transferred to [facility] where she had multiple operations on her right leg for deep infection of her hardware on the left distal femur, which was placed for internal fixation of a periprosthetic fracture. She had 4 operations. She was discharged from [facility] to [facility]. She had been in [facility] until yesterday when she was transferred here. She reports that she is permitted to bear weight. She stood a few times. She is feeling apathetic about her condition and all that she has been through. Encouragement is offered to her. She has been afebrile and her vital signs are stable. Her labs are noted. She has anemia, hemoglobin 9, hematocrit 28. An x-ray of her left knee was done showing osteopenia, total knee arthroplasty in place. No evidence of fracture or complication. Report noted. She is on multiple antibiotics. She is not currently on a blood thinner and this is probably because of her recent GI bleed. On examination, she has a palpable dorsalis pedis pulse with diminished sensation throughout the foot because of her neuropathy. She has 5/5 strength to ankle and toe plantarflexion, dorsiflexion, inversion, eversion. She is not able to do a straight leg raise or lift her heel off the bed. She can flex her knee 0 to about 45-50 degrees with some assistance. She has 2 lateral incisions with sutures in place. One higher up on the thigh another one lateral to the knee. The upper incision looks completely benign. The distal incision shows some induration. The wound edges are well approximated and there is no necrosis and there is no drainage. She does have some faint erythema anterior and posterior to this. There is not any fluid notable within her knee. She has some mild tenderness in her thigh area. Orthopedically the patient has a right total knee and right total hip. She has also had a right knee periprosthetic femur fracture and status post ORIF with a plate and poncho. She has developed a deep infection and I think that she has had multiple I and D's with hardware exchange. We will need to clarify with Lee[facility] and [facility] regarding her weightbearing status and functional status for PT, OT orders. We will need to clarify with [facility] what exactly has been done with her and what the plans are. It sounds like she was supposed to go back to [facility] yesterday. We will obtain x-rays of her right leg and provide further information once we have that available. I do not see any need right now for any type of orthopedic procedures.
--- NOTE | 2020-10-15 10:43 | Pharmacy Report ---
Pharmacy Abx Dose Short Note - Date of Service October 15, 2020 - Assessment & Plan Assessment * 70 year old F receiving VANCOMYCIN + CEFEPIME for treatment of pneumonia w/ risk factors for resistance (receipt of IV broad spectrum abx, recent hospitalizations, MRSA infxn hx); VANCOMYCIN also serves to cover MRSA SSTI / joint infection that the patient was previously receiving DAPTOMYCIN - of note, daptomycin has been associated with eosinophilic pneumonia * Day # 1 of antimicrobial therapy for pneumonia * MRSA nasal swab has been ordered, results pending; No growth in BLCXs to date * No leukocytosis noted on today's labs, mild temperature elevation this AM * Renal fxn: small increase in SCr over last 24 hrs Plan Vancomycin * Pharmacy has dosed vancomycin for this patient in the recent past. Will use data from recent admission to guide initial dosing this admission. * Loading dose: 2250mg (~20mg/kg) * Maint dose: 1000mg IV Q 24 hrs - slighltly lower than prior estimate due to lower reported weight and recent increase in SCr * Goal trough level for pulm infxn / MRSA bone/joint infxn : 15 to 20 mcg/mL - OR - goal AUC:SERENA of 400-600 * Will check trough level in 2-3 days if therapy to continue. Cefepime * eCrCl 30-60cc/min, 2gm IV Q 12 hrs indicated Pharmacy will continue to follow and will adjust dose/frequency as necessary. Thank you.
--- NOTE | 2020-10-15 11:07 | CT Scan Report ---
CT SCAN OF THE CHEST WITHOUT IV CONTRAST CLINICAL HISTORY: Hypoxia. COMPARISON STUDY: Chest x-ray dated 10/15/2020. Chest CT scans dated 07/05/2017 and 10/07/2018. TECHNIQUE: CT scan of the thorax was performed from the thoracic inlet to the upper abdomen. Images are reviewed in the axial, sagittal, and coronal planes. IV contrast was not administered for this ex amination as per the referring clinician. A dose lowering technique was utilized adhering to the shady monzon of PHILOMENA. CT DOSE: 694.07 mGycm FINDINGS: Thyroid: Imaged portions of the thyroid gland are normal in size and attenuation. Thoracic aorta: There is atherosclerotic calcification of the thoracic aorta, which is normal in aba chelle and demonstrates standard 3-vessel arch anatomy. Heart: A right PICC line is in place. The heart is top normal in size and without pericardial effusio n. The coronary arteries and aortic valve leaflets are densely calcified. There is diminished attenua tion of the cardiac blood pool as compared to the myocardium suggesting anemia. The pulmonary trunk i s dilated, measuring 3.8 cm in transverse diameter. This suggests pulmonary artery hypertension. Lungs and pleural spaces: Emphysematous change is noted. The trachea and central airways are clear. T here are small to moderate pleural effusions. Multifocal airspace consolidation is seen throughout sergio th lungs, most confluent in the right upper lobe. A 4 mm left lower lobe pulmonary nodule is seen on image #172 and a 4 mm lingular pulmonary nodule is seen on image #151. A 4 mm pulmonary nodule in the left upper lobe on image #133, and a 4 mm right middle lobe pulmonary nodule is seen on image #152. These have been present dating back to 2019. Mediastinum: There are mildly enlarged mediastinal lymph nodes. A prevascular node on image #95 measu res 10 mm short axis. Circumferential wall thickening is suggested in the esophagus. Cristina: Not well assessed without IV contrast. Axillae: There is no axillary lymphadenopathy. Upper abdomen: There is a small hiatal hernia. Partially visualized upper abdominal viscera is otherw ise grossly unremarkable. Skeletal structures: The skeletal structures are osteopenic. No lytic or blastic bony lesions are see n. IMPRESSION: 1. Emphysema. 2. Multifocal airspace consolidation is seen throughout both lungs. The appearance is typical for pne umonia/aspiration pneumonitis. Clinical correlation will be required and radiographic follow-up to re solution is recommended. 3. Small to moderate pleural effusions. 4. Mildly enlarged mediastinal lymph nodes are likely reactive. 5. The esophagus appears circumferentially thick walled. Correlate clinically for evidence of esophag itis. This can be further assessed with endoscopy if clinically warranted. 6. Scattered subcentimeter pulmonary nodules have not significantly changed as compared to 10/07/2018. ACT 112: Negative or not required by law. Electronically signed by: Adiel Brantley M.D. 10/15/2020 11:05 AM
--- NOTE | 2020-10-15 11:14 | XRay Report ---
XR knee RT 1 or 2V routine CLINICAL HISTORY: fracture COMPARISON: 09/13/2020 DISCUSSION: There are postsurgical changes of a total right knee arthroplasty. There is an intramedul jere femoral poncho traversing a comminuted periprosthetic distal femoral fracture. Since the prior stud y, the lateral metallic plate has been removed. There are multiple radiopaque antibiotic pledgets wit hin the lateral soft tissues. There is minor callus formation. IMPRESSION: 1. Interval removal of the lateral femoral metallic plate with placement of multiple radiopaque antib iotic pledgets 2. No change in alignment of the comminuted distal femoral periprosthetic fracture. Early callus form ation is evident 3. Total right knee arthroplasty. ACT 112: Negative or not required by law. Electronically signed by: Rakan Azul M.D. 10/15/2020 11:12 AM
--- NOTE | 2020-10-15 13:31 | XRay Report ---
XR hip RT min 2V, XR femur RT 2V routine CLINICAL HISTORY: Right femur pain. COMPARISON STUDY: Right femur 09/13/2020. FINDINGS: The bones are osteopenic. A right total hip arthroplasty. There is also a lateral cortical plate and screws within the rostral to mid shaft of the right femur and a right total knee arthroplas ty. Mild callus formation surrounding the healing fracture within the distal shaft of the right femur . Interval placement of antibiotic pledgets within the distal femur. The degree of healing has slight ly progressed compared to the prior study. Mildly displaced distal femoral fracture is unchanged. No erosive changes identified to suggest an osteomyelitis. Soft tissue swelling within the right leg. IMPRESSION: 1. Slight progressive healing within the distal femoral periprosthetic fracture. There is placement o f antibiotic pledgets at the distal femoral shaft. 2. No acute fracture or dislocation within the right hip. ACT 112: Negative or not required by law. Electronically signed by: Rob Hallman M.D. 10/15/2020 1:30 PM
--- NOTE | 2020-10-15 15:28 | Hospitalist Progress Note ---
Date of Service October 15, 2020 Assessment & Plan (1) Acute on chronic respiratory failure with hypoxia and hypercapnia: Patient is 70-year-old female with past medical history of diastolic heart failure, COPD, anxiety, depression, CKD stage III, hypertension, chronic indwelling Gonzalez catheter and GERD presented to the ED with shortness of breath and acute on chronic anemia. Patient is chronically on 2 L of nasal cannula, due to COPD Yesterday she was on 3 to 4 L in the hospital However overnight her oxygen requirement increased significantly, to 10 L Stat chest x-ray ordered by cirilo, concerning for pneumonia, aspiration ABG -pH 7.36, PCO2 70, PO2 60, bicarb 39 Procalcitonin ordered Antibiotics started by fiberglass boat assembly supervisor/ertapenem, discussed with pharmacy, switched to cefepime to cover for possible Pseudomonas Also started on vancomycin, will obtain MRSA nasal swab Discussed linezolid, however due to patient's medication such as Celexa or nortriptyline, linezolid is contraindicated Guaifenesin, flutter valve and incentive spirometry started Pulmonary medicine consulted, recommend CT chest without contrast, which was ordered (2) COPD (chronic obstructive pulmonary disease): - cont. home medications and as above (3) Acute on chronic diastolic CHF (congestive heart failure): (4) Elevated troponin: (5) Congestive heart failure: Hemoglobin of 7.7 on admission. Chest x-ray with some pulmonary vascular congestion and some right upper lobe airspace opacities patient denied any cough, fever and absence of any leukocytosis. proBNP of 11,000 on admission. Cardiac enzymes were not concerning. Does use 2-3 L of nasal cannula at baseline, on 4 L of nasal cannula on 10/14 Continued with IV Lasix 40 mg twice daily. Continue to monitor ins and outs along with daily weights. Echo obtained, no change compared to previous study in August 2020. Normal LV systolic function without regional wall motion abnormality, EF 60 to 65%. Cardiology consulted - as patient also presented with chest pain. Chest pain seems to be musculoskeletal in origin. Patient did not appear fluid overload and it was recommended that IV Lasix is stopped and patient is restarted on her home p.o. Lasix. We will continue to closely monitor (6) GERD (gastroesophageal reflux disease): (7) Anemia: GI bleed H. pylori - seen by GI at [facility] and also here -At [facility] presented with with coffee-ground emesis on arrival -At [facility] she underwent EGD (09/22/20), which showed gastritis and small gastric ulcer with no active bleeding. She was found to have H. pylori, and was treated. She finished treatment on October 07 -She is supposed to have a follow-up EGD in 8 weeks to assess ulcer healing (w/ [facility]) -Per [facility] - continue PPI, trend H&H, transfuse as needed, follow up w/ [facility] providers -Patient was transfused in [place], and she also obtained 2 units of PRBCs here on admission (8) Right femoral fracture: -In [place] underwent right femur removal of hardware. Revision ORIF of right femur. Wound debridement and closure. Placement of antibiotic delivery device. On September 24, 2020, by . -Postop plan at that time was patient will be weightbearing as tolerated on her right lower extremity. She will begin DVT prophylaxis starting the night of postoperative day 0. Orthopedic infectious disease will provide recommendations for antibiotics postoperatively. Will obtain final x-rays of her right femur. Per hospitalist discharge summary, patient was discharged to [facility] -Intraoperative cultures grew 1+ E. faecium and few Staph aureus resistant to oxacillin. Ortho ID was following and recommended daptomycin 900 mg IV daily from September 25 to November 05, 2020. With follow-up CPK weekly, weightbearing of the right lower extremity as tolerated. PICC line was placed for 6 weeks of antibiotics. Following 6 weeks of IV antibiotics, plan will be to indefinitely suppressed with doxycycline monohydrate 100 mg p.o. twice daily due to the presence of extensive hardware in the limb. Lab results to be faxed to ID office at , outpatient follow-up with Ortho ID -DVT prophylaxis achieved with Lovenox 40 twice daily for 3 weeks, end date October 14 -Per discharge summary, patient is supposed to follow-up with orthopedics, Dr. Kaba, today October 14 -[facility] - can be contacted at -On current admission, she has several incisions with sutures in place, one higher up on the thigh another one lateral to the knee -wound care was consulted as well as orthopedics given her extensive history and poorly healing wounds (9) Morbid obesity: - needs counselling (10) Weakness: (11) Depression: (12) Anxiety: - cont home medications - ativan decreased as per nursing staff pt becomes very somnolent w/ meds (13) History of pulmonary embolism: (14) CKD (chronic kidney disease) stage 3, GFR 30-59 ml/min: - cont to monitor renal function -Try to avoid NSAIDs/ nephrotoxic agents (15) Hypertension: (16) Hyperlipidemia: - monitor BP, cont. home meds (17) Chronic indwelling Gonzalez catheter: Admission and Anticipated Discharge Date Admission Date: October 13, 2020 Subjective Patient seen in follow-up of acute on chronic respiratory failure Concern for acute GI bleed/anemia Chest pain Overnight patient had increased oxygen requirements, yesterday she was on 3 to 4 L of supplemental oxygen via nasal cannula, this morning on 10 L. Chest x-ray obtained by fiberglass boat assembly supervisor, concern for pneumonia/aspiration. Pulmonary medicine also contacted. Chest CT ordered. Recently patient was admitted at [facility], is on daptomycin for her orthopedics infection/postop. Will obtain discharge summary and further information. Currently patient is lying in bed, oxygen mask applied, she is awake and alert and able to answer questions mostly appropriately. At this time she is complaining of sciatica pain in her hips, and some dyspnea. She was seen by cardiology for chest pain, this seems to be musculoskeletal from sternal rubs, as patient becomes quite somnolent after receiving pain medications. Review of Systems Review of Systems: All systems reviewed & are unremarkable except as noted in HPI & below Constitutional: + fatigue; no fever and no chills Respiratory: + cough and + dyspnea Cardiovascular: no chest pain and no palpitations Gastrointestinal: no abdominal pain, no nausea and no vomiting Physical Exam Physical Exam: General: WD/WN, elderly obese F on 10L via oxymask HENT: NCAT, MMM, EOMI Eyes: PERRL, EOMI, Neck: Supple, normal range of motion CVS: normal rate and rhythm Resp: + coarse breath sounds, on 10 L via oxymask Abdomen: Soft, ND/NT, +BS Extremities: moves extremities, dressings placed on R lateral leg from upper thigh to lateral knee, there are 2 incisions, one at upper thigh, one at lateral knee/ some erythema noted Neuro: Awake and alert, answering questions mostly appropriately, face symmetric, speech fluent, moves extremities Skin: warm and dry, no rashes (RLE as above) Results & Data Results & Data ([facility]) Vital Signs (Past 12 Hours) Vital Signs Temp Pulse Pulse Resp BP Pulse Ox 10/15/20 15:08 37.3 C 104 H 14 132/45 L 91 10/15/20 11:27 37.2 C 106 H 20 142/51 H 90 10/15/20 08:00 76 10/15/20 07:46 37.9 C H 87 18 157/51 H 90 10/15/20 07:07 104 H 14 88 L Laboratory Results 10/15/20 10/15/20 10/15/20 Range/Units 09:00 09:00 09:00 WBC (4.8-10.8) K/uL RBC (4.2-5.4) M/uL Hgb (12.0-16.0) g/dL Hct (37-47) % MCV (80-100) fL MCH (25-34) pg MCHC (32-36) g/dL RDW Std Deviation (36.4-46.3) fL RDW Coeff of Leo (11.5-14.5) % Plt Count (130-400) K/uL MPV (7.4-10.4) fL Immature Gran % (Auto) % Neut % (Auto) % Lymph % (Auto) % Cuming % (Auto) % Eos % (Auto) % Baso % (Auto) % Neut # (Auto) (1.4-6.5) K/uL Lymph # (Auto) (1.2-3.4) K/uL Cuming # (Auto) (0.11-0.59) K/uL Eos # (Auto) (0-0.5) K/uL Baso # (Auto) (0-0.2) K/uL Immature Gran # (Auto) (0.00-0.02) K/uL APTT (21.0-31.0) Seconds PTT Ratio ABG pH (7.35-7.45) ABG pCO2 (35-46) mmHg ABG pO2 (80-95) mmHg ABG HCO3 (19-24) mmol/L ABG O2 Saturation (90-95) % ABG Base Excess (-9-1.8) mEq/L Tanmay Test (Pos) Oxygen Given Sodium (136-145) mmol/L Potassium (3.5-5.1) mmol/L Chloride (98-107) mmol/L Carbon Dioxide (21-32) mmol/L Anion Gap (3-11) BUN (7-18) mg/dl Creatinine (0.6-1.2) mg/dl Est Cr Clr Drug Dosing ml/min Est GFR ( Amer) ml/min Est GFR (Non-Af Amer) ml/min BUN/Creatinine Ratio (10-20) Glucose (70-99) mg/dl Lactate (0.4-2.0) mmol/L Calcium (8.5-10.1) mg/dl Phosphorus (2.5-4.9) mg/dl Magnesium (1.8-2.4) mg/dl Total Bilirubin (0.2-1) mg/dl Direct Bilirubin (0-0.2) mg/dl AST (15-37) U/L ALT (12-78) U/L Alkaline Phosphatase (45-117) U/L Total Creatine Kinase (26-192) U/L Total Protein (6.4-8.2) gm/dl Albumin (3.4-5.0) gm/dl Procalcitonin (0-0.5) ng/ml Nasal Screen MRSA (PCR) Negative (Negative) COVID-19 Eval [facility] SARS-[facility]-2, RNA, NAAT NEGATIVE (NEGATIVE) 10/15/20 10/15/20 10/15/20 Range/Units 07:56 03:51 03:42 WBC (4.8-10.8) K/uL RBC (4.2-5.4) M/uL Hgb (12.0-16.0) g/dL Hct (37-47) % MCV (80-100) fL MCH (25-34) pg MCHC (32-36) g/dL RDW Std Deviation (36.4-46.3) fL RDW Coeff of Leo (11.5-14.5) % Plt Count (130-400) K/uL MPV (7.4-10.4) fL Immature Gran % (Auto) % Neut % (Auto) % Lymph % (Auto) % Cuming % (Auto) % Eos % (Auto) % Baso % (Auto) % Neut # (Auto) (1.4-6.5) K/uL Lymph # (Auto) (1.2-3.4) K/uL Cuming # (Auto) (0.11-0.59) K/uL Eos # (Auto) (0-0.5) K/uL Baso # (Auto) (0-0.2) K/uL Immature Gran # (Auto) (0.00-0.02) K/uL APTT (21.0-31.0) Seconds PTT Ratio ABG pH 7.36 (7.35-7.45) ABG pCO2 70 H (35-46) mmHg ABG pO2 60 L (80-95) mmHg ABG HCO3 39 H (19-24) mmol/L ABG O2 Saturation 91.7 (90-95) % ABG Base Excess 11.2 H (-9-1.8) mEq/L Tanmay Test Pos (Pos) Oxygen Given 12L Sodium (136-145) mmol/L Potassium (3.5-5.1) mmol/L Chloride (98-107) mmol/L Carbon Dioxide (21-32) mmol/L Anion Gap (3-11) BUN (7-18) mg/dl Creatinine (0.6-1.2) mg/dl Est Cr Clr Drug Dosing ml/min Est GFR ( Amer) ml/min Est GFR (Non-Af Amer) ml/min BUN/Creatinine Ratio (10-20) Glucose (70-99) mg/dl Lactate (0.4-2.0) mmol/L Calcium (8.5-10.1) mg/dl Phosphorus (2.5-4.9) mg/dl Magnesium (1.8-2.4) mg/dl Total Bilirubin 0.3 (0.2-1) mg/dl Direct Bilirubin 0.1 (0-0.2) mg/dl AST 25 (15-37) U/L ALT 21 (12-78) U/L Alkaline Phosphatase 75 (45-117) U/L Total Creatine Kinase 26 (26-192) U/L Total Protein 5.9 L (6.4-8.2) gm/dl Albumin 1.8 L (3.4-5.0) gm/dl Procalcitonin 0.29 (0-0.5) ng/ml Nasal Screen MRSA (PCR) (Negative) COVID-19 Eval Order SARS-CoV-2, RNA, NAAT (NEGATIVE) 10/15/20 10/15/20 10/15/20 Range/Units 03:42 03:42 03:42 WBC (4.8-10.8) K/uL RBC (4.2-5.4) M/uL Hgb (12.0-16.0) g/dL Hct (37-47) % MCV (80-100) fL MCH (25-34) pg MCHC (32-36) g/dL RDW Std Deviation (36.4-46.3) fL RDW Coeff of Leo (11.5-14.5) % Plt Count (130-400) K/uL MPV (7.4-10.4) fL Immature Gran % (Auto) % Neut % (Auto) % Lymph % (Auto) % Cuming % (Auto) % Eos % (Auto) % Baso % (Auto) % Neut # (Auto) (1.4-6.5) K/uL Lymph # (Auto) (1.2-3.4) K/uL Cuming # (Auto) (0.11-0.59) K/uL Eos # (Auto) (0-0.5) K/uL Baso # (Auto) (0-0.2) K/uL Immature Gran # (Auto) (0.00-0.02) K/uL APTT 24.3 (21.0-31.0) Seconds PTT Ratio 0.9 ABG pH (7.35-7.45) ABG pCO2 (35-46) mmHg ABG pO2 (80-95) mmHg ABG HCO3 (19-24) mmol/L ABG O2 Saturation (90-95) % ABG Base Excess (-9-1.8) mEq/L Tanmay Test (Pos) Oxygen Given Sodium 134 L (136-145) mmol/L Potassium 4.2 (3.5-5.1) mmol/L Chloride 93 L (98-107) mmol/L Carbon Dioxide 39 H (21-32) mmol/L Anion Gap 2.0 L (3-11) BUN 29 H (7-18) mg/dl Creatinine 1.34 H (0.6-1.2) mg/dl Est Cr Clr Drug Dosing 46.9 ml/min Est GFR ( Amer) 45.8 ml/min Est GFR (Non-Af Amer) 39.5 ml/min BUN/Creatinine Ratio 21.6 H (10-20) Glucose 119 H (70-99) mg/dl Lactate 0.9 (0.4-2.0) mmol/L Calcium 9.1 (8.5-10.1) mg/dl Phosphorus 4.1 (2.5-4.9) mg/dl Magnesium 2.6 H (1.8-2.4) mg/dl Total Bilirubin (0.2-1) mg/dl Direct Bilirubin (0-0.2) mg/dl AST (15-37) U/L ALT (12-78) U/L Alkaline Phosphatase (45-117) U/L Total Creatine Kinase (26-192) U/L Total Protein (6.4-8.2) gm/dl Albumin (3.4-5.0) gm/dl Procalcitonin (0-0.5) ng/ml Nasal Screen MRSA (PCR) (Negative) COVID-19 Eval Order SARS-CoV-2, RNA, NAAT (NEGATIVE) 10/15/20 Range/Units 03:42 WBC 10.57 (4.8-10.8) K/uL RBC 2.86 L (4.2-5.4) M/uL Hgb 8.6 L (12.0-16.0) g/dL Hct 27.7 L (37-47) % MCV 96.9 (80-100) fL MCH 30.1 (25-34) pg MCHC 31.0 L (32-36) g/dL RDW Std Deviation 53.6 H (36.4-46.3) fL RDW Coeff of Leo 15.1 H (11.5-14.5) % Plt Count 241 (130-400) K/uL MPV 9.8 (7.4-10.4) fL Immature Gran % (Auto) 0.4 % Neut % (Auto) 71.4 % Lymph % (Auto) 12.2 % Cuming % (Auto) 9.7 % Eos % (Auto) 6.1 % Baso % (Auto) 0.2 % Neut # (Auto) 7.54 H (1.4-6.5) K/uL Lymph # (Auto) 1.29 (1.2-3.4) K/uL Cuming # (Auto) 1.03 H (0.11-0.59) K/uL Eos # (Auto) 0.65 H (0-0.5) K/uL Baso # (Auto) 0.02 (0-0.2) K/uL Immature Gran # (Auto) 0.04 H (0.00-0.02) K/uL APTT (21.0-31.0) Seconds PTT Ratio ABG pH (7.35-7.45) ABG pCO2 (35-46) mmHg ABG pO2 (80-95) mmHg ABG HCO3 (19-24) mmol/L ABG O2 Saturation (90-95) % ABG Base Excess (-9-1.8) mEq/L Tanmay Test (Pos) Oxygen Given Sodium (136-145) mmol/L Potassium (3.5-5.1) mmol/L Chloride (98-107) mmol/L Carbon Dioxide (21-32) mmol/L Anion Gap (3-11) BUN (7-18) mg/dl Creatinine (0.6-1.2) mg/dl Est Cr Clr Drug Dosing ml/min Est GFR ( Amer) ml/min Est GFR (Non-Af Amer) ml/min BUN/Creatinine Ratio (10-20) Glucose (70-99) mg/dl Lactate (0.4-2.0) mmol/L Calcium (8.5-10.1) mg/dl Phosphorus (2.5-4.9) mg/dl Magnesium (1.8-2.4) mg/dl Total Bilirubin (0.2-1) mg/dl Direct Bilirubin (0-0.2) mg/dl AST (15-37) U/L ALT (12-78) U/L Alkaline Phosphatase (45-117) U/L Total Creatine Kinase (26-192) U/L Total Protein (6.4-8.2) gm/dl Albumin (3.4-5.0) gm/dl Procalcitonin (0-0.5) ng/ml Nasal Screen MRSA (PCR) (Negative) COVID-19 Eval Order SARS-CoV-2, RNA, NAAT (NEGATIVE) Medications Administered Current Inpatient Medications Acetaminophen (Acetaminophen 325 Mg Tab) 650 mg PO Q4H PRN PRN Reason: Pain or Fever Stop: 11/12/20 16:43 Last Admin: 10/15/20 01:37 Dose: 650 mg Documented by: Amitriptyline HCl (Amitriptyline Hcl 25 Mg Tab) 25 mg PO HS ROBERT Stop: 11/12/20 20:59 Last Admin: 10/14/20 20:51 Dose: 25 mg Documented by: Atorvastatin Calcium (Atorvastatin 20 Mg Tab) 20 mg PO HS ROBERT Stop: 11/12/20 20:59 Last Admin: 10/14/20 20:51 Dose: 20 mg Documented by: Citalopram Hydrobromide (Citalopram 20 Mg Tab) 10 mg PO QAM ROBERT Stop: 11/13/20 08:59 Last Admin: 10/15/20 09:46 Dose: 10 mg Documented by: Ferrous Sulfate (Ferrous Sulfate 325 Mg Tab) 325 mg PO DAILY ROBERT Stop: 11/13/20 08:59 Last Admin: 10/15/20 09:45 Dose: 325 mg Documented by: Fluticasone/Vilanterol (Fluticasone/Vilanterol 100/25mcg 14 Puffs/Inhaler) 1 puffs INH DAILY ROBERT Stop: 11/13/20 08:59 Last Admin: 10/15/20 09:46 Dose: 1 puffs Documented by: Guaifenesin (Guaifenesin 600 Mg Tabcr) 600 mg PO Q12 ROBERT Stop: 11/14/20 08:59 Last Admin: 10/15/20 09:44 Dose: 600 mg Documented by: Heparin Sodium (Beef Lung) (Heparin 10 Unit/Ml 5 Ml Flush) 5 ml FLUSH PRN PRN PRN Reason: Flush Stop: 11/13/20 08:12 Hydromorphone HCl (Hydromorphone Hcl 2 Mg Tab) 1 mg PO Q4H PRN PRN Reason: Pain Stop: 10/27/20 16:43 Last Admin: 10/14/20 01:48 Dose: 1 mg Documented by: Furosemide 40 mg/ Syringe 4 mls @ 4 mls/min IV [id number] ROBERT Stop: 11/12/20 17:29 Last Admin: 10/14/20 17:31 Dose: 4 mls/min Documented by: Pantoprazole Sodium 40 mg/ (Syringe) 10 mls @ 5 mls/min IV BID ROBERT Stop: 11/13/20 20:59 Last Admin: 10/15/20 09:44 Dose: 5 mls/min Documented by: Cefepime HCl 2,000 mg/ Syringe 20 mls @ 5 mls/min IV Q12H ROBERT Stop: 10/22/20 07:59 Last Admin: 10/15/20 09:44 Dose: 5 mls/min Documented by: Vancomycin HCl 1,000 mg/ (Sodium Chloride) 270 mls @ 200 mls/hr IV Q24H [facility] Stop: 10/23/20 09:59 Ipratropium Palmer (Ipratropium Palmer Neb Soln 0.02% 2.5 Ml Vial) 0.5 mg INH Q6R [facility] Stop: 11/14/20 06:59 Last Admin: 10/15/20 13:12 Dose: 0.5 mg Documented by: Levalbuterol HCl (Levalbuterol 1.25mg/0.5ml Neb) 1.25 mg INH Q6R [facility] Stop: 11/14/20 06:59 Last Admin: 10/15/20 13:12 Dose: 1.25 mg Documented by: Lidocaine (Lidocaine 5% 1 Patch) 1 patch TD DAILY [facility] Stop: 11/13/20 08:59 Last Admin: 10/15/20 09:45 Dose: 1 patch Documented by: Lisinopril (Lisinopril 5 Mg Tab) 5 mg PO DAILY ROBERT Stop: 11/13/20 08:59 Last Admin: 10/14/20 07:48 Dose: 5 mg Documented by: Lorazepam (Lorazepam 1 Mg Tab) 0.25 mg PO TID PRN PRN Reason: Anxiety Stop: 11/12/20 16:43 Metoprolol Succinate (Metoprolol Succ 25mg Ext Rel Tab) 25 mg PO QAM [facility] Stop: 11/13/20 08:59 Last Admin: 10/15/20 09:45 Dose: 25 mg Documented by: Miscellaneous (Remove Lidoderm Patch) 1 ea N/A DAILY@2100 [facility] Stop: 11/12/20 20:59 Last Admin: 10/14/20 20:52 Dose: 1 ea Documented by: Miscellaneous Information (Vancomycin Consult Active) 1 ea N/A UD PRN PRN Reason: Consult Stop: 11/14/20 09:11 Montelukast Sodium (Montelukast Sodium 10 Mg Tablet) 10 mg PO HS [facility] Stop: 11/12/20 20:59 Last Admin: 10/14/20 20:51 Dose: 10 mg Documented by: Multivitamins (Multivitamin Tab) 1 tab PO QAM ROBERT Stop: 11/13/20 08:59 Last Admin: 10/15/20 09:45 Dose: 1 tab Documented by: Prednisone (Prednisone 20 Mg Tab) 40 mg PO DAILY [facility] Stop: 10/20/20 08:59 Pregabalin (Pregabalin 150 Mg Cap) 150 mg PO TID [facility] Stop: 11/12/20 16:43 Last Admin: 10/15/20 15:11 Dose: Not Given Documented by: Trazodone HCl (Trazodone Hcl 50 Mg Tab) 50 mg PO HS [facility] Stop: 11/12/20 20:59 Last Admin: 10/14/20 20:58 Dose: 50 mg Documented by: Umeclidinium Palmer (Umeclidinium Palmer 62.5mcg/Blister 7 Puffs/Inhaler) 1 p uffs INH DAILY [facility] Stop: 11/13/20 08:59 Last Admin: 10/15/20 09:46 Dose: 1 puffs Documented by: Vitamin D (Cholecalciferol 1,000 Units 25 Mcg Tab) 5,000 units PO DAILY ROBERT Stop: 11/13/20 08:59 Last Admin: 10/15/20 09:45 Dose: 5,000 units Documented by: (1) Congestive heart failure Heart failure chronicity: acute Heart failure type: unspecified Qualified Code(s): I50.9 - Heart failure, unspecified (2) Anemia Anemia type: unspecified type Qualified Code(s): D64.9 - Anemia, unspecified (3) COPD (chronic obstructive pulmonary disease) COPD type: unspecified COPD Qualified Code(s): J44.9 - Chronic obstructive pulmonary disease, unspecified
[2020-10-15] MEDS ORDERED: ALBUT/IPRATROP 3MG/0.5MG NEB 3 ML VIAL NEB PRN (16:31)
--- NOTE | 2020-10-15 16:50 | Cardiology Progress Note ---
Date of Service October 15, 2020 Assessment & Plan (1) Musculoskeletal chest pain: (2) Narcotic dependence: (3) Elevated troponin: (4) Anemia: (5) GERD (gastroesophageal reflux disease): (6) CKD (chronic kidney disease) stage 3, GFR 30-59 ml/min: (7) COPD (chronic obstructive pulmonary disease): Musculoskeletal chest pain secondary to left fourth rib stuck in exhalation and likely sternal contusion secondary to the need for recurrent sternal rubs to arouse patient from sleep. Troponin level above normal lab value likely secondary to prerenal azotemia and possible component of type II myocardial ischemic demand with significant anemia. No wall motion abnormalities on echocardiogram Patient does not examine his volume overloaded, I do not see any component of heart failure, will discontinue IV Lasix. Restart outpatient p.o. dose in the a.m. No further cardiac test intervention necessary at this time. Given valvular heart disease recommend maintaining hemoglobin greater than 9. Okay to DC to rehab or off telemetry from a cardiac standpoint. No other medication changes were made at this time. Would consider avoiding further narcotic and anxiolytic medications given events of early this a.m. Admission and Anticipated Discharge Date Admission Date: October 13, 2020 Subjective Patient seen and examined, chart reviewed as well events of overnight. Contin ues to complain of pleuritic chest pain asking for further pain meds. Telemetry reviewed, normal sinus rhythm/sinus tachycardia Review of Systems Review of Systems: All systems reviewed & are unremarkable except as noted in HPI & below Physical Exam Physical Exam: Physical Exam: General: Lethargic. Somewhat difficult to arouse from sleep. Awake, alert and oriented x 3. No acute distress. HEENT: Normocephalic, atraumatic. Pupils equal, round and reactive to light and accommodation. Extraocular muscles are intact. Anicteric sclera. Moist mucous membranes. Neck: No JVD. No bruit. Cardiovascular: Regular. No S-4. Normal S-1 and S-2. No S-3. No murmurs, rubs or gallops. Pulmonary: Clear to auscultation bilaterally. No rales, rhonchi, or wheezing. Abdomen: Bowel sounds x 4, soft. No rebound, guarding or tenderness. No organomegaly. Extremities: No clubbing, cyanosis or edema. +2 pedal pulses bilaterally. Skin: Warm and dry. Musculoskeletal: Direct palpation of the left fourth rib head was able to reproduce patient's pain and left fourth rib found to be stuck in exhalation. Results & Data ([facility]) Vital Signs (Past 12 Hours) Vital Signs Temp Pulse Pulse Resp BP Pulse Ox 10/15/20 15:08 37.3 C 104 H 14 132/45 L 91 10/15/20 11:27 37.2 C 106 H 20 142/51 H 90 10/15/20 08:00 76 10/15/20 07:46 37.9 C H 87 18 157/51 H 90 10/15/20 07:07 104 H 14 88 L
[2020-10-15] MEDS: FUROSEMIDE 20 MG TAB PO SCH (17:54)
[2020-10-15] MEDS: AMITRIPTYLINE HCL 25 MG TAB PO SCH (20:32)
[2020-10-15] MEDS: traZODone HCL 50 MG TAB PO SCH (20:32)
[2020-10-15] MEDS: MONTELUKAST SODIUM 10 MG TABLET PO SCH (20:33)
[2020-10-15] MEDS: ATORVASTATIN 20 MG TAB PO SCH (20:34)
[2020-10-15] MEDS: metroNIDAZOLE 500 MG TAB PO SCH (20:35)
[2020-10-16] MEDS: LEVALBUTEROL 1.25MG/0.5ML NEB INH SCH ×4 (01:02→19:42)
[2020-10-16] MEDS: IPRATROPIUM BROMIDE NEB SOLN 0.02% 2.5 ML VIAL INH SCH ×4 (01:02→19:42)
[2020-10-16] MEDS: ACETAMINOPHEN 325 MG TAB PO PRN (03:44)
[2020-10-16] MEDS: LORazepam 1 MG TAB PO PRN ×3 (03:46→20:10)
[2020-10-16] MEDS ORDERED: ERTAPENEM SODIUM 1,000 MG in SODIUM CHLORIDE 0.9% 50 ML IV SCH (06:00)
[2020-10-16 06:23] LABS: Hematocrit (blood only) 25.2 % (37-47); Mean Corpuscular Hemoglobin 30.1 pg (25-34); Mean Corpuscular Hgb Conc 31.7 g/dL (32-36); Mean Corpuscular Volume 94.7 fL (80-100); Mean Platelet Volume 9.5 fL (7.4-10.4); Platelet Count 212 K/uL (130-400); RDW Coefficient of Variation 14.5 % (11.5-14.5); RDW Standard Deviation 49.8 fL (36.4-46.3); Red Blood Count 2.66 M/uL (4.2-5.4); White Blood Count 7.41 K/uL (4.8-10.8)
[2020-10-16 06:40] LABS: BUN Creatinine Ratio 33.4 (10-20); Calcium 8.4 mg/dl (8.5-10.1); Creatinine Clr Calc Pharmacy 54.9 ml/min; Est GFR (African American) 56.8 ml/min; Magnesium 2.8 mg/dl (1.8-2.4); Phosphorus 3.8 mg/dl (2.5-4.9); Potassium 4.6 mmol/L (3.5-5.1)
[2020-10-16] MEDS: HYDROmorphone HCL 2 MG TAB PO PRN (08:26)
[2020-10-16] MEDS: metroNIDAZOLE 500 MG TAB PO SCH ×3 (08:28→21:11)
[2020-10-16] MEDS: FERROUS SULFATE 325 MG TAB PO SCH (08:28)
[2020-10-16] MEDS: PANTOprazole 40 MG in SYRINGE 0 ML IV SCH ×2 (08:28→21:22)
[2020-10-16] MEDS: CITALOPRAM 20 MG TAB PO SCH (08:29)
[2020-10-16] MEDS: CHOLECALCIFEROL 1,000 UNITS 25 MCG TAB PO SCH (08:31)
[2020-10-16] MEDS: predniSONE 20 MG TAB PO SCH (08:31)
[2020-10-16] MEDS: guaiFENesin 600 MG TABCR PO SCH ×2 (08:32→21:11)
[2020-10-16] MEDS: MULTIVITAMIN TAB PO SCH (08:32)
[2020-10-16] MEDS: METOPROLOL SUCC 25MG EXT REL TAB PO SCH (08:32)
[2020-10-16] MEDS: LIDOCAINE 5% 1 PATCH TD SCH (08:32)
[2020-10-16] MEDS: FLUTICASONE/VILANTEROL 100/25MCG 14 PUFFS/INHALER INH SCH (08:33)
[2020-10-16] MEDS: UMECLIDINIUM BROMIDE 62.5MCG/BLISTER 7 PUFFS/INHALER INH SCH (08:33)
[2020-10-16] MEDS: FUROSEMIDE 20 MG TAB PO SCH ×2 (08:33→18:08)
[2020-10-16] MEDS: PREGABALIN 150 MG CAP PO SCH ×3 (08:45→21:11)
[2020-10-16] MEDS: CEFEPIME 2,000 MG in SYRINGE 0 ML IV SCH ×2 (08:46→21:11)
--- NOTE | 2020-10-16 08:59 | Hospitalist Progress Note ---
Date of Service October 16, 2020 Assessment & Plan (1) Acute on chronic respiratory failure with hypoxia and hypercapnia: Aspiration pneumonia patient is 70-year-old female with past medical history of diastolic heart failure, COPD, anxiety, depression, CKD stage III, hypertension, chronic indwelling Gonzalez catheter and GERD presented to the ED with shortness of breath and acute on chronic anemia. Patient is chronically on 2 L of nasal cannula, due to COPD On admission was on 3 to 4 L in the hospital however overnight her oxygen requirement increased significantly, to 10 L (10/15) Stat chest x-ray ordered by cirilo, concerning for pneumonia, aspiration ABG -pH 7.36, PCO2 70, PO2 60, bicarb 39 Procalcitonin ordered Antibiotics started by cirilo/ertapenem, discussed with pharmacy, switched to cefepime to cover for possible Pseudomonas , added flagyl for anaerobic coverage Also started on vancomycin, obtain MRSA nasal swab Discussed linezolid, however due to patient's medication such as Celexa or nortriptyline, linezolid is contraindicated Guaifenesin, flutter valve and incentive spirometry started Pulmonary medicine consulted, recommend CT chest without contrast, which was ordered CT chest - IMPRESSION: 1. Emphysema. 2. Multifocal airspace consolidation is seen throughout both lungs. The appearance is typical for pneumonia/aspiration pneumonitis. Clinical correlation will be required and radiographic follow-up to resolution is recommended. 3. Small to moderate pleural effusions. 4. Mildly enlarged mediastinal lymph nodes are likely reactive. 5. The esophagus appears circumferentially thick walled. Correlate clinically for evidence of esophagitis. This can be further assessed with endoscopy if clinically warranted. 6. Scattered subcentimeter pulmonary nodules have not significantly changed as compared to 10/07/2018. (2) COPD (chronic obstructive pulmonary disease): - cont. home medications and as above (3) Acute on chronic diastolic CHF (congestive heart failure): (4) Elevated troponin: (5) Congestive heart failure: On admission - Chest x-ray with some pulmonary vascular congestion and some r ight upper lobe airspace opacities patient denied any cough, fever and absence of any leukocytosis. proBNP of 11,000 on admission. Cardiac enzymes were not concerning. Does use 2-3 L of nasal cannula at baseline, on 4 L of nasal cannula on 10/14 Continued with IV Lasix 40 mg twice daily. Continue to monitor ins and outs along with daily weights. Echo obtained, no change compared to previous study in August 2020. Normal LV systolic function without regional wall motion abnormality, EF 60 to 65%. Cardiology consulted - as patient also complained of chest pain. Chest pain seems to be musculoskeletal in origin. Patient did not appear fluid overload and it was recommended that IV Lasix is stopped and patient is restarted on her home p.o. Lasix. We will continue to closely monitor (6) GERD (gastroesophageal reflux disease): (7) Anemia: GI bleed H. pylori Acute on chronic blood loss anemia - seen by GI at [facility] and also here -At [place] presented with with coffee-ground emesis on arrival -At [place] [facility] she underwent EGD (09/22/20), which showed gastritis and small gastric ulcer with no active bleeding. She was found to have H. pylori, and was treated. She finished treatment on October 07 -She is supposed to have a follow-up EGD in 8 weeks to assess ulcer healing (w/ [facility]) -Per [facility] - continue PPI, trend H&H, transfuse as needed, follow up w/ [place] [facility] providers -Patient was transfused in [place], and she also obtained 2 units of PRBCs here on admission Current Hgb 8.0 (10/16) Repeat H&H, cont. to closely monitor, may require another blood transfusion given her cardiac hx (8) Right femoral fracture: -In [place] underwent right femur removal of hardware. Revision ORIF of right femur. Wound debridement and closure. Placement of antibiotic delivery device. On September 24, 2020, by . -Postop plan at that time was patient will be weightbearing as tolerated on her right lower extremity. She will begin DVT prophylaxis starting the night of postoperative day 0. Orthopedic infectious disease will provide recommendations for antibiotics postoperatively. Will obtain final x-rays of her right femur. Per hospitalist discharge summary, patient was discharged to [facility] -Intraoperative cultures grew 1+ E. faecium and few Staph aureus resistant to oxacillin. Ortho ID was following and recommended daptomycin 900 mg IV daily from September 25 to November 05, 2020. With follow-up CPK weekly, weightbearing of the right lower extremity as tolerated. PICC line was placed for 6 weeks of antibiotics. Following 6 weeks of IV antibiotics, plan will be to indefinitely suppressed with doxycycline monohydrate 100 mg p.o. twice daily due to the presence of extensive hardware in the limb. Lab results to be faxed to ID office at , outpatient follow-up with Ortho ID -DVT prophylaxis achieved with Lovenox 40 twice daily for 3 weeks, end date October 14 -Per discharge summary, patient supposed to follow-up with orthopedics, Dr. Kaba, on October 14 - will reschedule follow up -[facility] - can be contacted at -On current admission, R leg - several incisions with sutures in place, one higher up on the thigh another one lateral to the knee -wound care was consulted as well as orthopedics given her extensive history and poorly healing wounds (9) Morbid obesity: - needs counselling (10) Weakness: (11) Depression: (12) Anxiety: - cont home medications - ativan decreased as per nursing staff pt becomes very somnolent w/ meds (13) History of pulmonary embolism: (14) CKD (chronic kidney disease) stage 3, GFR 30-59 ml/min: - cont to monitor renal function -Try to avoid NSAIDs/ nephrotoxic agents (15) Hypertension: (16) Hyperlipidemia: - monitor BP, cont. home meds (17) Chronic indwelling Gonzalez catheter: Admission and Anticipated Discharge Date Admission Date: October 13, 2020 Subjective Patient seen in follow-up of acute on chronic respiratory failure Concern for acute GI bleed/anemia Chest pain Yesterday patient had increased oxygen requirements, 10 L via oxymask. Chest x- ray obtained by [employer] professor, concern for pneumonia/aspiration. Pulmonary medicine also contacted. Chest CT obtained. Recently patient was admitted at [facility], on daptomycin for her orthopedics infection/postop. Currently patient is lying in bed, on 5L O2 via NC. She feels very weak, but is awake and able to answer questions appropriately. She was seen by cardiology for chest pain, this seems to be musculoskeletal from sternal rubs, as patient becomes quite somnolent after receiving pain medications. Review of Systems Review of Systems: All systems reviewed & are unremarkable except as noted in HPI & below Constitutional: + fatigue; no fever and no chills Respiratory: + cough and + dyspnea Gastrointestinal: no abdominal pain and no vomiting Physical Exam Physical Exam: General: WD/WN, elderly obese F on 5L via oxymask HENT: NCAT, MMM, EOMI Eyes: PERRL, EOMI, Neck: Supple, normal range of motion CVS: normal rate and rhythm Resp: + coarse breath sounds, on 5 L via NC Abdomen: Soft, ND/NT, +BS Extremities: moves extremities, R lateral leg - there are 2 incisions and sutures, one at upper thigh, one at lateral knee/ some erythema noted Neuro: Awake and alert, answering questions mostly appropriately, face symmetric, speech fluent, moves extremities Skin: warm and dry, no rashes (RLE as above) Results & Data Results & Data ([facility]) Vital Signs (Past 12 Hours) Vital Signs Temp Pulse Pulse Resp BP BP Pulse Ox 10/16/20 07:23 36.5 C 73 15 121/59 L 97 10/16/20 07:16 68 14 96 10/16/20 03:45 36.5 C 71 19 135/42 L 94 10/16/20 01:02 65 16 89 L 10/16/20 00:31 36.6 C 68 18 118/42 L 92 10/15/20 23:48 70 Laboratory Results 10/16/20 10/16/20 10/16/20 Range/Units 06:08 06:08 01:37 WBC 7.41 (4.8-10.8) K/uL RBC 2.66 L (4.2-5.4) M/uL Hgb 8.0 L (12.0-16.0) g/dL Hct 25.2 L (37-47) % MCV 94.7 (80-100) fL MCH 30.1 (25-34) pg MCHC 31.7 L (32-36) g/dL RDW Std Deviation 49.8 H (36.4-46.3) fL RDW Coeff of Leo 14.5 (11.5-14.5) % Plt Count 212 (130-400) K/uL MPV 9.5 (7.4-10.4) fL Sodium 134 L (136-145) mmol/L Potassium 4.6 (3.5-5.1) mmol/L Chloride 95 L (98-107) mmol/L Carbon Dioxide 38 H (21-32) mmol/L Anion Gap 1.0 L (3-11) BUN 37 H (7-18) mg/dl Creatinine 1.12 (0.6-1.2) mg/dl Est Cr Clr Drug Dosing 54.9 ml/min Est GFR ( Amer) 56.8 ml/min Est GFR (Non-Af Amer) 49.0 ml/min BUN/Creatinine Ratio 33.4 H (10-20) Glucose 139 H (70-99) mg/dl POC Glucose 148 H (70-99) mg/dl Calcium 8.4 L (8.5-10.1) mg/dl Phosphorus 3.8 (2.5-4.9) mg/dl Magnesium 2.8 H (1.8-2.4) mg/dl Total Bilirubin (0.2-1) mg/dl Direct Bilirubin (0-0.2) mg/dl AST (15-37) U/L ALT (12-78) U/L Alkaline Phosphatase (45-117) U/L Total Creatine Kinase (26-192) U/L Total Protein (6.4-8.2) gm/dl Albumin (3.4-5.0) gm/dl Procalcitonin (0-0.5) ng/ml Nasal Screen MRSA (PCR) (Negative) COVID-19 Eval Order SARS-CoV-2, RNA, NAAT (NEGATIVE) 10/15/20 10/15/20 10/15/20 Range/Units 09:00 09:00 09:00 WBC (4.8-10.8) K/uL RBC (4.2-5.4) M/uL Hgb (12.0-16.0) g/dL Hct (37-47) % MCV (80-100) fL MCH (25-34) pg MCHC (32-36) g/dL RDW Std Deviation (36.4-46.3) fL RDW Coeff of Leo (11.5-14.5) % Plt Count (130-400) K/uL MPV (7.4-10.4) fL Sodium (136-145) mmol/L Potassium (3.5-5.1) mmol/L Chloride (98-107) mmol/L Carbon Dioxide (21-32) mmol/L Anion Gap (3-11) BUN (7-18) mg/dl Creatinine (0.6-1.2) mg/dl Est Cr Clr Drug Dosing ml/min Est GFR ( Amer) ml/min Est GFR (Non-Af Amer) ml/min BUN/Creatinine Ratio (10-20) Glucose (70-99) mg/dl POC Glucose (70-99) mg/dl Calcium (8.5-10.1) mg/dl Phosphorus (2.5-4.9) mg/dl Magnesium (1.8-2.4) mg/dl Total Bilirubin (0.2-1) mg/dl Direct Bilirubin (0-0.2) mg/dl AST (15-37) U/L ALT (12-78) U/L Alkaline Phosphatase (45-117) U/L Total Creatine Kinase (26-192) U/L Total Protein (6.4-8.2) gm/dl Albumin (3.4-5.0) gm/dl Procalcitonin (0-0.5) ng/ml Nasal Screen MRSA (PCR) Negative (Negative) COVID-19 Eval Order Covid19 IDNow [facility] SARS-CoV-2, RNA, NAAT NEGATIVE (NEGATIVE) 10/15/20 10/15/20 Range/Units 07:56 03:42 WBC (4.8-10.8) K/uL RBC (4.2-5.4) M/uL Hgb (12.0-16.0) g/dL Hct (37-47) % MCV (80-100) fL MCH (25-34) pg MCHC (32-36) g/dL RDW Std Deviation (36.4-46.3) fL RDW Coeff of Leo (11.5-14.5) % Plt Count (130-400) K/uL MPV (7.4-10.4) fL Sodium (136-145) mmol/L Potassium (3.5-5.1) mmol/L Chloride (98-107) mmol/L Carbon Dioxide (21-32) mmol/L Anion Gap (3-11) BUN (7-18) mg/dl Creatinine (0.6-1.2) mg/dl Est Cr Clr Drug Dosing ml/min Est GFR ( Amer) ml/min Est GFR (Non-Af Amer) ml/min BUN/Creatinine Ratio (10-20) Glucose (70-99) mg/dl POC Glucose (70-99) mg/dl Calcium (8.5-10.1) mg/dl Phosphorus (2.5-4.9) mg/dl Magnesium (1.8-2.4) mg/dl Total Bilirubin 0.3 (0.2-1) mg/dl Direct Bilirubin 0.1 (0-0.2) mg/dl AST 25 (15-37) U/L ALT 21 (12-78) U/L Alkaline Phosphatase 75 (45-117) U/L Total Creatine Kinase 26 (26-192) U/L Total Protein 5.9 L (6.4-8.2) gm/dl Albumin 1.8 L (3.4-5.0) gm/dl Procalcitonin 0.29 (0-0.5) ng/ml Nasal Screen MRSA (PCR) (Negative) COVID-19 Eval Order SARS-CoV-2, RNA, NAAT (NEGATIVE) Medications Administered Current Inpatient Medications Acetaminophen (Acetaminophen 325 Mg Tab) 650 mg PO Q4H PRN PRN Reason: Pain or Fever Stop: 11/12/20 16:43 Last Admin: 10/16/20 03:44 Dose: 650 mg Documented by: Albuterol (Albut/Ipratrop 3mg/0.5mg Neb 3 Ml Vial) 3 ml NEB Q4R PRN PRN Reason: shortness of breath, wheezing Stop: 11/14/20 18:59 Amitriptyline HCl (Amitriptyline Hcl 25 Mg Tab) 25 mg PO HS [facility] Stop: 11/12/20 20:59 Last Admin: 10/15/20 20:32 Dose: 25 mg Documented by: Atorvastatin Calcium (Atorvastatin 20 Mg Tab) 20 mg PO HS [facility] Stop: 11/12/20 20:59 Last Admin: 10/15/20 20:34 Dose: 20 mg Documented by: Citalopram Hydrobromide (Citalopram 20 Mg Tab) 10 mg PO QAM [facility] Stop: 11/13/20 08:59 Last Admin: 10/16/20 08:29 Dose: 10 mg Documented by: Ferrous Sulfate (Ferrous Sulfate 325 Mg Tab) 325 mg PO DAILY [facility] Stop: 11/13/20 08:59 Last Admin: 10/16/20 08:28 Dose: 325 mg Documented by: Fluticasone/Vilanterol (Fluticasone/Vilanterol 100/25mcg 14 Puffs/Inhaler) 1 puffs INH DAILY [facility] Stop: 11/13/20 08:59 Last Admin: 10/16/20 08:33 Dose: 1 puffs Documented by: Furosemide (Furosemide 20 Mg Tab) 20 mg PO BID17 [facility] Stop: 11/14/20 16:59 Last Admin: 10/16/20 08:33 Dose: 20 mg Documented by: Guaifenesin (Guaifenesin 600 Mg Tabcr) 600 mg PO Q12 [facility] Stop: 11/14/20 08:59 Last Admin: 10/16/20 08:32 Dose: 600 mg Documented by: Heparin Sodium (Beef Lung) (Heparin 10 Unit/Ml 5 Ml Flush) 5 ml FLUSH PRN PRN PRN Reason: Flush Stop: 11/13/20 08:12 Hydromorphone HCl (Hydromorphone Hcl 2 Mg Tab) 0.5 mg PO Q4H PRN PRN Reason: Pain Stop: 10/27/20 16:43 Last Admin: 10/16/20 08:26 Dose: 0.5 mg Documented by: Pantoprazole Sodium 40 mg/ (Syringe) 10 mls @ 5 mls/min IV BID [facility] Stop: 11/13/20 20:59 Last Admin: 10/16/20 08:28 Dose: 5 mls/min Documented by: Cefepime HCl 2,000 mg/ Syringe 20 mls @ 5 mls/min IV Q12H [facility] Stop: 10/22/20 07:59 Last Admin: 10/16/20 08:46 Dose: 5 mls/min Documented by: Vancomycin HCl 1,000 mg/ (Sodium Chloride) 270 mls @ 200 mls/hr IV Q24H [facility] Stop: 10/23/20 09:59 Ipratropium [place] (Ipratropium [place] Neb Soln 0.02% 2.5 Ml Vial) 0.5 mg INH Q6R [facility] Stop: 11/14/20 06:59 Last Admin: 10/16/20 07:16 Dose: 0.5 mg Documented by: Levalbuterol HCl (Levalbuterol 1.25mg/0.5ml Neb) 1.25 mg INH Q6R [facility] Stop: 11/14/20 06:59 Last Admin: 10/16/20 07:16 Dose: 1.25 mg Documented by: Lidocaine (Lidocaine 5% 1 Patch) 1 patch TD DAILY [facility] Stop: 11/13/20 08:59 Last Admin: 10/16/20 08:32 Dose: 1 patch Documented by: Lisinopril (Lisinopril 5 Mg Tab) 5 mg PO DAILY [facility] Stop: 11/13/20 08:59 Last Admin: 10/14/20 07:48 Dose: 5 mg Documented by: Lorazepam (Lorazepam 1 Mg Tab) 0.25 mg PO TID PRN PRN Reason: Anxiety Stop: 11/12/20 16:43 Last Admin: 10/16/20 03:46 Dose: 0.25 mg Documented by: Metoprolol Succinate (Metoprolol Succ 25mg Ext Rel Tab) 25 mg PO QAM [facility] Stop: 11/13/20 08:59 Last Admin: 10/16/20 08:32 Dose: 25 mg Documented by: Metronidazole (Metronidazole 500 Mg Tab) 500 mg PO TID [facility]; Protocol Stop: 10/22/20 20:59 Last Admin: 10/16/20 08:28 Dose: 500 mg Documented by: Miscellaneous (Remove Lidoderm Patch) 1 ea N/A DAILY@2100 [facility] Stop: 11/12/20 20:59 Last Admin: 10/15/20 20:35 Dose: 1 ea Documented by: Miscellaneous Information (Vancomycin Consult Active) 1 ea N/A UD PRN PRN Reason: Consult Stop: 11/14/20 09:11 Montelukast Sodium (Montelukast Sodium 10 Mg Tablet) 10 mg PO HS [facility] Stop: 11/12/20 20:59 Last Admin: 10/15/20 20:33 Dose: 10 mg Documented by: Multivitamins (Multivitamin Tab) 1 tab PO QAM [facility] Stop: 11/13/20 08:59 Last Admin: 10/16/20 08:32 Dose: 1 tab Documented by: Prednisone (Prednisone 20 Mg Tab) 40 mg PO DAILY [facility] Stop: 10/20/20 08:59 Last Admin: 10/16/20 08:31 Dose: 40 mg Documented by: Pregabalin (Pregabalin 150 Mg Cap) 150 mg PO TID [facility] Stop: 11/12/20 16:43 Last Admin: 10/16/20 08:45 Dose: 150 mg Documented by: Trazodone HCl (Trazodone Hcl 50 Mg Tab) 50 mg PO HS [facility] Stop: 11/12/20 20:59 Last Admin: 10/15/20 20:32 Dose: 50 mg Documented by: Umeclidinium [place] (Umeclidinium [place] 62.5mcg/Blister 7 Puffs/Inhaler) 1 puffs INH DAILY [facility] Stop: 11/13/20 08:59 Last Admin: 10/16/20 08:33 Dose: 1 puffs Documented by: Vitamin D (Cholecalciferol 1,000 Units 25 Mcg Tab) 5,000 units PO DAILY [facility] Stop: 11/13/20 08:59 Last Admin: 10/16/20 08:31 Dose: 5,000 units Documented by: (1) COPD (chronic obstructive pulmonary disease) COPD type: unspecified COPD Qualified Code(s): J44.9 - Chronic obstructive pulmonary disease, unspecified (2) Congestive heart failure Heart failure chronicity: acute Heart failure type: unspecified Qualified Code(s): I50.9 - Heart failure, unspecified (3) Anemia Anemia type: unspecified type Qualified Code(s): D64.9 - Anemia, unspecified
--- NOTE | 2020-10-16 09:05 | Orthopedic Progress Note ---
Date of Service October 16, 2020 Assessment & Plan (1) Right femoral fracture: Confirmed with [place] [employer]. Patient is weight-bear as tolerated right lower extremity. She can do full range of motion of all lower extremity joints. Ice and elevation as needed. Encouraged her to try to move her leg is much as possible. Placed orders for physical therapy and Occupational Therapy to be done while here in the hospital. She will need to follow-up with her [place] orthopedic surgeon as an outpatient when she leaves here. We will continue to leave sutures in place. She can do strengthening right lower extremity as tolerated. X-rays were reviewed and appears to have stable ORIF of her right femur fracture with antibiotic beads and acceptable alignment and some bridging callus formation. She understands and agrees with the plan. She is mainly concerned about where she is going upon discharge from the hospital. We will also communicate with her [place] orthopedic surgeon and update orders as necessary per their recommendations. All questions were answered. Admission and Anticipated Discharge Date Admission Date: October 13, 2020 Subjective No pain in right leg. Resting in bed comfortably. Has not been out of bed, states that she is very weak. She's concerned about "where she's going from here." Physical Exam Physical Exam: Right thigh incisions clean, dry and intact. Proximal incision with no surrounding erythema. Distal incision has some surrounding erythema and induration. No significant warmth. Again no active drainage. Nontender with palpation around either incision. Sutures are retained. No effusion to the right knee. She does have distal edema into her right foot. Dorsalis pedis pulses palpated 1+. 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 Normal sensation. She is able to move her toes and her ankle comfortably. No calf discomfort today with palpation. Results & Data ([facility]) Vital Signs (Past 12 Hours) Vital Signs Temp Pulse Pulse Resp BP BP Pulse Ox 10/16/20 08:00 71 10/16/20 07:23 36.5 C 73 15 121/59 L 97 10/16/20 07:16 68 14 96 10/16/20 03:45 36.5 C 71 19 135/42 L 94 10/16/20 01:02 65 16 89 L 10/16/20 00:31 36.6 C 68 18 118/42 L 92 10/15/20 23:48 70 Diagnostic Findings XR knee RT 1 or 2V routine CLINICAL HISTORY: fracture COMPARISON: 09/13/2020 DISCUSSION: There are postsurgical changes of a total right knee arthroplasty. There is an intramedullary femoral poncho traversing a comminuted periprosthetic distal femoral fracture. Since the prior study, the lateral metallic plate has been removed. There are multiple radiopaque antibiotic pledgets within the lateral soft tissues. There is minor callus formation. IMPRESSION: 1. Interval removal of the lateral femoral metallic plate with placement of multiple radiopaque antibiotic pledgets 2. No change in alignment of the comminuted distal femoral periprosthetic fracture. Early callus formation is evident 3. Total right knee arthroplasty. XR hip RT min 2V, XR femur RT 2V routine CLINICAL HISTORY: Right femur pain. COMPARISON STUDY: Right femur 09/13/2020. FINDINGS: The bones are osteopenic. A right total hip arthroplasty. There is also a lateral cortical plate and screws within the rostral to mid shaft of the right femur and a right total knee arthroplasty. Mild callus formation surrounding the healing fracture within the distal shaft of the right femur. Interval placement of antibiotic pledgets within the distal femur. The degree of healing has slightly progressed compared to the prior study. Mildly displaced distal femoral fracture is unchanged. No erosive changes identified to suggest an osteomyelitis. Soft tissue swelling within the right leg. IMPRESSION: 1. Slight progressive healing within the distal femoral periprosthetic fracture. There is placement of antibiotic pledgets at the distal femoral shaft. 2. No acute fracture or dislocation within the right hip.
[2020-10-16] MEDS ORDERED: FUROSEMIDE 40 MG in SYRINGE 0 ML IV ONE (09:30)
[2020-10-16] MEDS: VANCOMYCIN HCL 1,000 MG in SODIUM CHLORIDE 0.9% 250 ML IV SCH (09:45)
--- NOTE | 2020-10-16 09:46 | Pulmonology Progress Note ---
Date of Service October 16, 2020 Assessment & Plan (1) Pulmonary infiltrate: CT chest 10/15/2020 personally reviewed: Centrilobular emphysema appreciated, consolidative process appreciated in bilateral upper and lower lobes more dense in the right upper lobe, bilateral pleural effusion more on the right side. Minimal mediastinal lymphadenopathy --Acute on chronic hypoxic hypercapnic respiratory failure Etiology is likely aspiration PNA Patient is also on daptomycin with peripheral eosinophilia up to 650 Daptomycin induced hypersensitivity syndrome is also in the differential Hypercapnia is also from underlying COPD as well as central apnea from opioids Continue with O2 supplementation to keep O2 saturation between 88-92% Patient is not a good candidate for BiPAP because of risk of aspiration is high --Bilateral pleural effusion Etiology is multifactorial CKD stage III, diastolic CHF as well as potentially malnutrition with albumin of 1.9 playing a role Recommend diuresis as tolerated --COPD with emphysema Continue with Breo and Incruse Mucinex --Pulmonary hypertension Likely a combination of type II and type III Treatment as above --DNR/DNI Plan: Continue with antibiotics with pseudomonal and anaerobic coverage for total of 10 days Continue titrate down oxygen to keep O2 saturation between 88-92% Try to avoid narcotics. Continue with aspiration precautions The possibility of DRESS is low and aspiration is high. Can resume daptomycin if need be. For bilateral pleural effusion I think hypoalbuminemia is playing a major role. 25% albumin 100 mL prior to giving Lasix could be considered Continue with incentive spirometry Case discussed with Dr. Dhaliwal No further recommendation from pulmonary perspective. Call directly with any questions Please note the above document was generated using voice recognition software. It may contain grammatical, syntax or spelling errors.Any formal questions or concerns about the content, text or information contained within the body of this dictation should be directly addressed to the provider for clarification. (2) Peripheral eosinophilia: (3) Acute on chronic respiratory failure with hypoxia and hypercapnia: (4) Aspiration pneumonia: (5) Pulmonary hypertension: Admission and Anticipated Discharge Date Admission Date: October 13, 2020 Subjective Patient seen and examined at bedside. No acute distress. No adverse events overnight. Patient is on 3 L nasal cannula at the time of examination saturating 92%. She is more alert compared to when I saw her yesterday. Denies any chest pain. Does complain of some discomfort in the right knee. No abdominal pain. Denies any significant shortness of breath. She said it is getting better. Review of Systems Review of Systems: All systems reviewed & are unremarkable except as noted in Subjective Physical Exam Physical Exam: Constitutional: No acute distress HEENT: EOMI, PERRLA Respiratory system: Decreased air entry bilaterally, no wheeze, no rhonchi, positive crackles bilaterally more on the right side CVS: S1-S2 positive, positive 3 out of 6 murmur appreciated best at the apex Abdomen: Soft, nontender, nondistended, positive bowel sounds x4, obese Extremities: +2 pulses bilaterally radialis/ dorsalis pedis, no cyanosis, +2 ankle edema bilaterally, erythema appreciated at the site of the incision on the right lateral aspect of the knee, positive dolor Neuro: Awake alert oriented x3 today Psych: Normal mood and affect G/U: Positive Gonzalez Skin: no rashes, warm and dry Lymphatic: no cervical or axillary lymphadenopathy Results & Data Results & Data ([facility]) Vital Signs (Past 12 Hours) Vital Signs Temp Pulse Pulse Resp BP BP Pulse Ox 10/16/20 08:00 71 10/16/20 07:23 36.5 C 73 15 121/59 L 97 10/16/20 07:16 68 14 96 10/16/20 03:45 36.5 C 71 19 135/42 L 94 10/16/20 01:02 65 16 89 L 10/16/20 00:31 36.6 C 68 18 118/42 L 92 10/15/20 23:48 70 10/16/20 06:08 10/16/20 06:08 PG Care Time/CCT Total # of Minutes Spent Total Time Spent with Patient: Total time spent is greater than 50% in coordination of care (as documented) at patient's floor/unit and/or counseling patient: Coding Level of Care Code 74725 Subseq Hosp Care Lvl 3 Diagnoses Pulmonary infiltrate R91.8 Peripheral eosinophilia D72.19 Acute on chronic respiratory failure with hypoxia and hypercapnia J96.21; J96.22 Aspiration pneumonia J69.0 Pulmonary hypertension I27.20
[2020-10-16] MEDS: ALBUMIN 25% 12.5 GM/50 ML VIAL IV SCH ×2 (10:59→11:30)
--- NOTE | 2020-10-16 11:36 | Cardiology Progress Note ---
Date of Service October 16, 2020 Assessment & Plan (1) Musculoskeletal chest pain: (2) Narcotic dependence: (3) Elevated troponin: (4) Anemia: (5) GERD (gastroesophageal reflux disease): (6) CKD (chronic kidney disease) stage 3, GFR 30-59 ml/min: (7) COPD (chronic obstructive pulmonary disease): Musculoskeletal chest pain secondary to left fourth rib stuck in exhalation and likely sternal contusion secondary to the need for recurrent sternal rubs to arouse patient from sleep. Troponin level above normal lab value likely secondary to prerenal azotemia and possible component of type II myocardial ischemic demand with significant anemia. No wall motion abnormalities on echocardiogram Patient does not examine his volume overloaded, I do not see any component of heart failure, continue outpatient p.o. Lasix No further cardiac test intervention necessary at this time. Given valvular heart disease recommend maintaining hemoglobin greater than 9. Okay to DC to rehab or off telemetry from a cardiac standpoint. No other medication changes were made at this time. Would consider avoiding further narcotic and anxiolytic medications given events of early this a.m. Admission and Anticipated Discharge Date Admission Date: October 13, 2020 Subjective Patient seen and examined, chart reviewed. States that she is feeling okay today but very weak. She is concerned about getting out of bed. No significant leg pain and denies any cardiac complaints of chest pain, shortness of breath, palpitations, lightheadedness, dizziness or syncope. Telemetry reviewed: Normal sinus rhythm/sinus tachycardia without arrhythmia. Review of Systems Review of Systems: All systems reviewed & are unremarkable except as noted in HPI & below Physical Exam Physical Exam: Physical Exam: General: Lethargic. Somewhat difficult to arouse from sleep. Awake, alert and oriented x 3. No acute distress. HEENT: Normocephalic, atraumatic. Pupils equal, round and reactive to light and accommodation. Extraocular muscles are intact. Anicteric sclera. Moist mucous membranes. Neck: No JVD. No bruit. Cardiovascular: Regular. No S-4. Normal S-1 and S-2. No S-3. No murmurs, rubs or gallops. Pulmonary: Clear to auscultation bilaterally. No rales, rhonchi, or wheezing. Abdomen: Bowel sounds x 4, soft. No rebound, guarding or tenderness. No organomegaly. Extremities: No clubbing, cyanosis or edema. +2 pedal pulses bilaterally. Skin: Warm and dry. Musculoskeletal: Direct palpation of the left fourth rib head was able to reproduce patient's pain and left fourth rib found to be stuck in exhalation. Results & Data ([facility]) Vital Signs (Past 12 Hours) Vital Signs Temp Pulse Pulse Resp BP BP Pulse Ox 10/16/20 11:12 70 18 146/63 H 96 10/16/20 08:00 71 10/16/20 07:23 36.5 C 73 15 121/59 L 97 10/16/20 07:16 68 14 96 10/16/20 03:45 36.5 C 71 19 135/42 L 94 10/16/20 01:02 65 16 89 L 10/16/20 00:31 36.6 C 68 18 118/42 L 92 10/15/20 23:48 70
[2020-10-16] MEDS ORDERED: LORazepam 0.5 MG TAB PO STA (14:18)
[2020-10-16 17:00] LABS: Hematocrit (blood only) 28.5 % (37-47); Hemoglobin 8.8 g/dL (12.0-16.0)
[2020-10-16 17:17] LABS: BUN Creatinine Ratio 37.6 (10-20); Calcium 9.2 mg/dl (8.5-10.1); Creatinine Clr Calc Pharmacy 56.5 ml/min; Est GFR (African American) 58.7 ml/min; Est GFR (Non-African American) 50.7 ml/min; Potassium 4.6 mmol/L (3.5-5.1)
[2020-10-16] MEDS ORDERED: POLYETHYLENE (MIRALAX) 17 GM PACK PO PRN (19:36)
[2020-10-16] MEDS: AMITRIPTYLINE HCL 25 MG TAB PO SCH (21:11)
[2020-10-16] MEDS: MONTELUKAST SODIUM 10 MG TABLET PO SCH (21:11)
[2020-10-16] MEDS: traZODone HCL 50 MG TAB PO SCH (21:11)
[2020-10-16] MEDS: ATORVASTATIN 20 MG TAB PO SCH (21:11)
[2020-10-17] MEDS: IPRATROPIUM BROMIDE NEB SOLN 0.02% 2.5 ML VIAL INH SCH ×4 (00:29→19:41)
[2020-10-17] MEDS: LEVALBUTEROL 1.25MG/0.5ML NEB INH SCH ×4 (00:30→19:41)
[2020-10-17] MEDS: HYDROmorphone HCL 2 MG TAB PO PRN ×3 (04:16→14:27)
[2020-10-17 05:49] LABS: Hematocrit (blood only) 28.7 % (37-47); Hemoglobin 8.8 g/dL (12.0-16.0); Mean Corpuscular Hemoglobin 29.4 pg (25-34); Mean Corpuscular Hgb Conc 30.7 g/dL (32-36); Mean Platelet Volume 9.8 fL (7.4-10.4); Platelet Count 244 K/uL (130-400); RDW Coefficient of Variation 14.7 % (11.5-14.5); RDW Standard Deviation 51.9 fL (36.4-46.3); Red Blood Count 2.99 M/uL (4.2-5.4); White Blood Count 8.73 K/uL (4.8-10.8)
[2020-10-17 06:26] LABS: BUN Creatinine Ratio 38.9 (10-20); Calcium 9.2 mg/dl (8.5-10.1); Creatinine Clr Calc Pharmacy 55.7 ml/min; Est GFR (African American) 62.2 ml/min; Est GFR (Non-African American) 53.6 ml/min; Magnesium 3.1 mg/dl (1.8-2.4); Potassium 4.4 mmol/L (3.5-5.1)
[2020-10-17 06:27] LABS: Phosphorus 3.1 mg/dl (2.5-4.9)
[2020-10-17] MEDS: LORazepam 1 MG TAB PO PRN ×2 (08:01→16:14)
[2020-10-17] MEDS: CEFEPIME 2,000 MG in SYRINGE 0 ML IV SCH (08:14)
[2020-10-17] MEDS: CHOLECALCIFEROL 1,000 UNITS 25 MCG TAB PO SCH (08:14)
[2020-10-17] MEDS: CITALOPRAM 20 MG TAB PO SCH (08:15)
[2020-10-17] MEDS: FERROUS SULFATE 325 MG TAB PO SCH (08:16)
[2020-10-17] MEDS: FUROSEMIDE 20 MG TAB PO SCH ×2 (08:17→16:38)
[2020-10-17] MEDS: FLUTICASONE/VILANTEROL 100/25MCG 14 PUFFS/INHALER INH SCH (08:17)
[2020-10-17] MEDS: LIDOCAINE 5% 1 PATCH TD SCH (08:18)
[2020-10-17] MEDS: guaiFENesin 600 MG TABCR PO SCH ×2 (08:18→22:02)
[2020-10-17] MEDS: metroNIDAZOLE 500 MG TAB PO SCH (08:19)
[2020-10-17] MEDS: METOPROLOL SUCC 25MG EXT REL TAB PO SCH (08:19)
[2020-10-17] MEDS: PANTOprazole 40 MG in SYRINGE 0 ML IV SCH ×2 (08:20→22:16)
[2020-10-17] MEDS: predniSONE 20 MG TAB PO SCH (08:20)
[2020-10-17] MEDS: MULTIVITAMIN TAB PO SCH (08:20)
[2020-10-17] MEDS: PREGABALIN 150 MG CAP PO SCH ×3 (08:21→22:02)
[2020-10-17] MEDS: UMECLIDINIUM BROMIDE 62.5MCG/BLISTER 7 PUFFS/INHALER INH SCH (08:21)
--- NOTE | 2020-10-17 09:01 | XRay Report ---
XR chest 1V portable CLINICAL HISTORY: follow up COMPARISON STUDY: October 15, 2020 FINDINGS: No pneumothorax. Mild to moderate pleural effusion is seen bilaterally, not significantly changed since prior. Patchy mixed reticular and airspace opacities are again seen throughout bilateral lungs, slightly imp roved at the right midlung region which could be positional. Opacities are stable on the left. Cardiomediastinal silhouette is within normal limits in size. Pulmonary vasculature is obscured.. Aorta is calcified. Osseous structures: unremarkable vertebral bodies are not well seen. Stable position of right-sided PICC line with tip projecting the anatomical region of superior vena c sophia. IMPRESSION: 1. Multifocal pneumonia, opacities are slightly improved at the right mid lung which could be due to difference in positioning during exam. Bilateral pleural effusion is again noted. 2. Atherosclerosis. 3. Support apparatus as above. ACT 112: Negative or not required by law. The above report was generated using voice recognition software. It may contain grammatical, syntax o r spelling errors. Electronically signed by: Laure Corbin DO 10/17/2020 8:59 AM
--- NOTE | 2020-10-17 09:10 | Progress Notes ---
DATE: 10/17/2020 Radiographs are reviewed. The patient was discussed with Willow Adkins. The radiographs demonstrate that the long lateral plate has been removed and a short bridging plate placed proximally between the poncho and hip. The hip looks fine. There is a poncho and total knee in place. The periprosthetic distal femur fracture appears to be in excellent alignment with evidence of healing. Antibiotic beads in place. She will continue with her present treatment. She can range of motion and weightbear as tolerated. Still waiting for communication from Tricia.
[2020-10-17] MEDS: VANCOMYCIN HCL 1,000 MG in SODIUM CHLORIDE 0.9% 250 ML IV SCH (09:26)
--- NOTE | 2020-10-17 09:35 | Orthopedic Progress Note ---
Date of Service October 17, 2020 Assessment & Plan (1) Right femoral fracture: Patient is weight-bear as tolerated right lower extremity with walker. She can do full range of motion of all lower extremity joints. Ice and elevation as needed. Encouraged her to try to move her leg as much as possible. She can do strengthening right lower extremity as tolerated. PT/OT while in hospital. Plan is DC to [facility]. Dr Tobar awaiting to here from [facility] for further instructions. Patient is scheduled to follow-up with [facility] Providers Dr Theodore Sewell (orthopedics) and Tim Live PA-C (ID) on 10-21 at 11:20am. If she is still here in-house at this time will re-evaluate and consider suture removal. Patient is aware of the above and questions answered. Admission and Anticipated Discharge Date Admission Date: October 13, 2020 Subjective Patient seen this am. On bed terry. No complaints this am. Generally frustrated with her overall situation. Pain controlled at rest. Plans to go to [facility]. Physical Exam Physical Exam: Alert and Oriented. In bed, on bed pain. Right LE sutures are dry and intact. No drainage or surrounding redness or erythema. Tolerates gentle active motion of right knee and hip. Able to wiggle toes and feet. Calves are soft. Neg homans. Palpable DP and PT pulses. Results & Data ([facility]) Vital Signs (Past 12 Hours) Vital Signs Temp Pulse Pulse Resp BP BP Pulse Ox 10/17/20 07:50 37.0 C 78 13 142/71 H 91 10/17/20 07:09 91 H 18 90 10/17/20 03:46 35.6 C L 106 H 20 145/56 H 95 10/16/20 23:42 36.5 C 82 20 139/49 L 93 10/16/20 23:38 84 Laboratory Results 10/17/20 10/17/20 10/16/20 Range/Units 05:37 05:37 16:51 WBC 8.73 (4.8-10.8) K/uL RBC 2.99 L (4.2-5.4) M/uL Hgb 8.8 L (12.0-16.0) g/dL Hct 28.7 L (37-47) % MCV 96.0 (80-100) fL MCH 29.4 (25-34) pg MCHC 30.7 L (32-36) g/dL RDW Std Deviation 51.9 H (36.4-46.3) fL RDW Coeff of Leo 14.7 H (11.5-14.5) % Plt Count 244 (130-400) K/uL MPV 9.8 (7.4-10.4) fL Sodium 136 134 L (136-145) mmol/L Potassium 4.4 4.6 (3.5-5.1) mmol/L Chloride 95 L 94 L (98-107) mmol/L Carbon Dioxide 39 H 39 H (21-32) mmol/L Anion Gap 2.0 L 1.0 L (3-11) BUN 40 H 41 H (7-18) mg/dl Creatinine 1.04 1.09 (0.6-1.2) mg/dl Est Cr Clr Drug Dosing 55.7 56.5 ml/min Est GFR ( Amer) 62.2 58.7 ml/min Est GFR (Non-Af Amer) 53.6 50.7 ml/min BUN/Creatinine Ratio 38.9 H 37.6 H (10-20) Glucose 111 H 152 H (70-99) mg/dl Calcium 9.2 9.2 (8.5-10.1) mg/dl Phosphorus 3.1 (2.5-4.9) mg/dl Magnesium 3.1 H (1.8-2.4) mg/dl 10/16/20 Range/Units 16:51 WBC (4.8-10.8) K/uL RBC (4.2-5.4) M/uL Hgb 8.8 L (12.0-16.0) g/dL Hct 28.5 L (37-47) % MCV (80-100) fL MCH (25-34) pg MCHC (32-36) g/dL RDW Std Deviation (36.4-46.3) fL RDW Coeff of Leo (11.5-14.5) % Plt Count (130-400) K/uL MPV (7.4-10.4) fL Sodium (136-145) mmol/L Potassium (3.5-5.1) mmol/L Chloride (98-107) mmol/L Carbon Dioxide (21-32) mmol/L Anion Gap (3-11) BUN (7-18) mg/dl Creatinine (0.6-1.2) mg/dl Est Cr Clr Drug Dosing ml/min Est GFR ( Amer) ml/min Est GFR (Non-Af Amer) ml/min BUN/Creatinine Ratio (10-20) Glucose (70-99) mg/dl Calcium (8.5-10.1) mg/dl Phosphorus (2.5-4.9) mg/dl Magnesium (1.8-2.4) mg/dl
[2020-10-17] MEDS ORDERED: SOD PHOSPHATE/SOD BIPHOSPHATE ENEMA 132 ML BTL PR STA (13:31)
[2020-10-17] MEDS ORDERED: PIPERACILLIN/TAZOBACTAM 3.375 GM in DEXTROSE 5% 100 ML IV ONE (13:45)
[2020-10-17] MEDS ORDERED: PIPERACILL/TAZOBAC CONSULT ACTIVE PRN (14:01)
[2020-10-17] MEDS ORDERED: CEFEPIME 2,000 MG in SYRINGE 0 ML IV SCH (16:00)
[2020-10-17] MEDS: ONDANSETRON 2 MG OD TAB PO PRN (16:14)
[2020-10-17] MEDS: DAPTOmycin 900 MG in SYRINGE 0 ML IV SCH (16:38)
--- NOTE | 2020-10-17 16:58 | Cardiology Progress Note ---
Date of Service October 17, 2020 Assessment & Plan (1) Musculoskeletal chest pain: (2) Narcotic dependence: (3) Elevated troponin: (4) Anemia: (5) GERD (gastroesophageal reflux disease): (6) CKD (chronic kidney disease) stage 3, GFR 30-59 ml/min: (7) COPD (chronic obstructive pulmonary disease): Musculoskeletal chest pain secondary to left fourth rib stuck in exhalation and likely sternal contusion secondary to the need for recurrent sternal rubs to arouse patient from sleep. Troponin level above normal lab value likely secondary to prerenal azotemia and possible component of type II myocardial ischemic demand with significant anemia. No wall motion abnormalities on echocardiogram Patient does not examine his volume overloaded, I do not see any component of heart failure, continue outpatient p.o. Lasix No further cardiac test intervention necessary at this time. Given valvular heart disease recommend maintaining hemoglobin greater than 9. Okay to DC to rehab or off telemetry from a cardiac standpoint. No other medication changes were made at this time. Would consider avoiding further narcotic and anxiolytic medications given events of early this a.m. Admission and Anticipated Discharge Date Admission Date: October 13, 2020 Subjective Patient seen this am. On bed terry. No complaints this am. Generally frustrated with her overall situation. Pain controlled at rest. Plans to go to [facility]. Review of Systems Review of Systems: All systems reviewed & are unremarkable except as noted in HPI & below Physical Exam Physical Exam: Physical Exam: General: Lethargic. Somewhat difficult to arouse from sleep. Awake, alert and oriented x 3. No acute distress. HEENT: Normocephalic, atraumatic. Pupils equal, round and reactive to light and accommodation. Extraocular muscles are intact. Anicteric sclera. Moist mucous membranes. Neck: No JVD. No bruit. Cardiovascular: Regular. No S-4. Normal S-1 and S-2. No S-3. No murmurs, rubs or gallops. Pulmonary: Clear to auscultation bilaterally. No rales, rhonchi, or wheezing. Abdomen: Bowel sounds x 4, soft. No rebound, guarding or tenderness. No organomegaly. Extremities: No clubbing, cyanosis or edema. +2 pedal pulses bilaterally. Skin: Warm and dry. Musculoskeletal: Direct palpation of the left fourth rib head was able to reproduce patient's pain and left fourth rib found to be stuck in exhalation. Results & Data ([facility]) Vital Signs (Past 12 Hours) Vital Signs Temp Pulse Resp BP BP Pulse Ox 10/17/20 15:06 36.6 C 69 16 151/61 H 97 10/17/20 11:07 36.7 C 76 17 150/58 H 97 10/17/20 07:50 37.0 C 78 13 142/71 H 91 10/17/20 07:09 91 H 18 90
[2020-10-17] MEDS ORDERED: PIPERACILLIN/TAZOBACTAM 3.375 GM in DEXTROSE 5% 100 ML IV SCH (20:00)
--- NOTE | 2020-10-17 21:44 | Hospitalist Progress Note ---
Date of Service October 17, 2020 Assessment & Plan (1) Acute on chronic respiratory failure with hypoxia and hypercapnia: Aspiration pneumonia patient is 70-year-old female with past medical history of diastolic heart failure, COPD, anxiety, depression, CKD stage III, hypertension, chronic indwelling Gonzalez catheter and GERD presented to the ED with shortness of breath and acute on chronic anemia. Patient is chronically on 2 L of nasal cannula, due to COPD On admission was on 3 to 4 L in the hospital however overnight her oxygen requirement increased significantly, to 10 L (10/15) Stat chest x-ray ordered by cirilo, concerning for pneumonia, aspiration ABG -pH 7.36, PCO2 70, PO2 60, bicarb 39 Procalcitonin ordered Antibiotics started by software systems engineer/ertapenem, discussed with pharmacy, switched to cefepime to cover for possible Pseudomonas , added flagyl for anaerobic coverage Also started on vancomycin, obtained MRSA nasal swab - negative Discussed linezolid, however due to patient's medication such as Celexa or nortriptyline, linezolid is contraindicated Guaifenesin, flutter valve and incentive spirometry started Pulmonary medicine consulted, recommend CT chest without contrast, which was ordered CT chest - IMPRESSION: 1. Emphysema. 2. Multifocal airspace consolidation is seen throughout both lungs. The appearance is typical for pneumonia/aspiration pneumonitis. Clinical correlation will be required and radiographic follow-up to resolution is recommended. 3. Small to moderate pleural effusions. 4. Mildly enlarged mediastinal lymph nodes are likely reactive. 5. The esophagus appears circumferentially thick walled. Correlate clinically for evidence of esophagitis. This can be further assessed with endoscopy if clinically warranted. 6. Scattered subcentimeter pulmonary nodules have not significantly changed as compared to 10/07/2018. Discussed w/ pulm - given pl. effusions, diuresed w/ IV lasix and w/ albumin. MRSA nasal swab negative, stop vanco, cont. daptomycin as previously for orthopedics infection. Switch cefepime and flagyl to zosyn. Cont. to monitor closely resp. status and oxygen requirements which seem to fluctuate between 3 and 7L. Encourage flutter valve, IS. (2) COPD (chronic obstructive pulmonary disease): - cont. home medications and as above (3) Acute on chronic diastolic CHF (congestive heart failure): (4) Elevated troponin: (5) Congestive heart failure: On admission - Chest x-ray with some pulmonary vascular congestion and some right upper lobe airspace opacities patient denied any cough, fever and absence of any leukocytosis. proBNP of 11,000 on admission. Cardiac enzymes were not concerning. Does use 2-3 L of nasal cannula at baseline, on 4 L of nasal cannula on 10/14 Continued with IV Lasix 40 mg twice daily. Continue to monitor ins and outs along with daily weights. Echo obtained, no change compared to previous study in August 2020. Normal LV systolic function without regional wall motion abnormality, EF 60 to 65%. Cardiology consulted - as patient also complained of chest pain. Chest pain seems to be musculoskeletal in origin. Patient did not appear fluid overload and it was recommended that IV Lasix is stopped and patient is restarted on her home p.o. Lasix. We will continue to closely monitor After aspiration event CT chest obtained, which showed consolidation and also pl. effusions, cont. w/ IV lasix and albumin (6) GERD (gastroesophageal reflux disease): (7) Anemia: GI bleed H. pylori Acute on chronic blood loss anemia - seen by GI at [facility] and also here -At [place] presented with with coffee-ground emesis on arrival -At [place] she underwent EGD (09/22/20), which showed gastritis and small gastric ulcer with no active bleeding. She was found to have H. pylori, and was treated. She finished treatment on October 07 -She is supposed to have a follow-up EGD in 8 weeks to assess ulcer healing (/ [place] [facility]) -Per [facility] - continue PPI, trend H&H, transfuse as needed, follow up w/ [place] providers -Patient was transfused in [place], and she also obtained 2 units of PRBCs here on admission Current Hgb 8.8 (10/17) Monitor H&H, cont. to closely monitor, may require another blood transfusion given her cardiac hx (8) Right femoral fracture: -In [place] underwent right femur removal of hardware. Revision ORIF of right femur. Wound debridement and closure. Placement of antibiotic delivery device. On September 24, 2020, by . -Postop plan at that time was patient will be weightbearing as tolerated on her right lower extremity. She will begin DVT prophylaxis starting the night of postoperative day 0. Orthopedic infectious disease will provide recommendations for antibiotics postoperatively. Will obtain final x-rays of her right femur. Per hospitalist discharge summary, [facility] -Intraoperative cultures grew 1+ E. faecium and few Staph aureus resistant to oxacillin. Ortho ID was following and recommended daptomycin 900 mg IV daily from September 25 to November 05, 2020. With follow-up CPK weekly, weightbearing of the right lower extremity as tolerated. PICC line was placed for 6 weeks of antibiotics. Following 6 weeks of IV antibiotics, plan will be to indefinitely suppressed with doxycycline monohydrate 100 mg p.o. twice daily due to the presence of extensive hardware in the limb. Lab results to be faxed to ID office at , outpatient follow-up with Ortho ID -DVT prophylaxis achieved with Lovenox 40 twice daily for 3 weeks, end date October 14 -Per discharge summary, patient supposed to follow-up with orthopedics, Dr. Kaba, on October 14 - will reschedule follow up -[place] [facility] - can be contacted at -On current admission, R leg - several incisions with sutures in place, one higher up on the thigh another one lateral to the knee -wound care was consulted as well as orthopedics given her extensive history and poorly healing wounds (9) Morbid obesity: - needs counselling (10) Weakness: (11) Depression: (12) Anxiety: - cont home medications - ativan decreased as per nursing staff pt becomes very somnolent w/ meds (13) History of pulmonary embolism: (14) CKD (chronic kidney disease) stage 3, GFR 30-59 ml/min: - cont to monitor renal function -Try to avoid NSAIDs/ nephrotoxic agents (15) Hypertension: (16) Hyperlipidemia: - monitor BP, cont. home meds (17) Chronic indwelling Gonzalez catheter: Admission and Anticipated Discharge Date Admission Date: October 13, 2020 Subjective Patient seen in follow-up of acute on chronic respiratory failure, aspiration pna, CHF exacerbation Concern for acute GI bleed/anemia Chest pain On supplemental oxygen between 3 and 7L, via NC. Lying in bed, feeling constipated and asking for enema. Reports chronic sciatica pain. Breathing feels better for her. Review of Systems Review of Systems: All systems reviewed & are unremarkable except as noted in HPI & below Constitutional: + fatigue; no fever and no chills Respiratory: + cough and + dyspnea (improved) Gastrointestinal: + constipation; no abdominal pain and no vomiting Physical Exam Physical Exam: General: WD/WN, elderly obese F on 5L via oxymask HENT: NCAT, MMM, EOMI Eyes: PERRL, EOMI, Neck: Supple, normal range of motion CVS: normal rate and rhythm Resp: + rhonchi and crackles, on 5 L via NC Abdomen: Soft, ND/NT, +BS Extremities: moves extremities, R lateral leg - there are 2 incisions and sutures, one at upper thigh, one at lateral knee/ some erythema noted Neuro: Awake and alert, answering questions mostly appropriately, face symmetric, speech fluent, moves extremities Skin: warm and dry, no rashes (RLE as above) Results & Data Results & Data ([facility]) Vital Signs (Past 12 Hours) Vital Signs Temp Pulse Resp BP BP Pulse Ox 10/17/20 20:17 36.8 C 75 20 165/56 H 91 10/17/20 19:42 75 15 94 10/17/20 15:06 36.6 C 69 16 151/61 H 97 10/17/20 11:07 36.7 C 76 17 150/58 H 97 Laboratory Results 10/17/20 10/17/20 Range/Units 05:37 05:37 WBC 8.73 (4.8-10.8) K/uL RBC 2.99 L (4.2-5.4) M/uL Hgb 8.8 L (12.0-16.0) g/dL Hct 28.7 L (37-47) % MCV 96.0 (80-100) fL MCH 29.4 (25-34) pg MCHC 30.7 L (32-36) g/dL RDW Std Deviation 51.9 H (36.4-46.3) fL RDW Coeff of Leo 14.7 H (11.5-14.5) % Plt Count 244 (130-400) K/uL MPV 9.8 (7.4-10.4) fL Sodium 136 (136-145) mmol/L Potassium 4.4 (3.5-5.1) mmol/L Chloride 95 L (98-107) mmol/L Carbon Dioxide 39 H (21-32) mmol/L Anion Gap 2.0 L (3-11) BUN 40 H (7-18) mg/dl Creatinine 1.04 (0.6-1.2) mg/dl Est Cr Clr Drug Dosing 55.7 ml/min Est GFR ( Amer) 62.2 ml/min Est GFR (Non-Af Amer) 53.6 ml/min BUN/Creatinine Ratio 38.9 H (10-20) Glucose 111 H (70-99) mg/dl Calcium 9.2 (8.5-10.1) mg/dl Phosphorus 3.1 (2.5-4.9) mg/dl Magnesium 3.1 H (1.8-2.4) mg/dl Medications Administered Current Inpatient Medications Acetaminophen (Acetaminophen 325 Mg Tab) 650 mg PO Q4H PRN PRN Reason: Pain or Fever Stop: 11/12/20 16:43 Last Admin: 10/16/20 03:44 Dose: 650 mg Documented by: Albuterol (Albut/Ipratrop 3mg/0.5mg Neb 3 Ml Vial) 3 ml NEB Q4R PRN PRN Reason: shortness of breath, wheezing Stop: 11/14/20 18:59 Amitriptyline HCl (Amitriptyline Hcl 25 Mg Tab) 25 mg PO HS [facility] Stop: 11/12/20 20:59 Last Admin: 10/16/20 21:11 Dose: 25 mg Documented by: Atorvastatin Calcium (Atorvastatin 20 Mg Tab) 20 mg PO HS ROBERT Stop: 11/12/20 20:59 Last Admin: 10/16/20 21:11 Dose: 20 mg Documented by: Citalopram Hydrobromide (Citalopram 20 Mg Tab) 10 mg PO QAM ROBERT Stop: 11/13/20 08:59 Last Admin: 10/17/20 08:15 Dose: 10 mg Documented by: Ferrous Sulfate (Ferrous Sulfate 325 Mg Tab) 325 mg PO DAILY ROBERT Stop: 11/13/20 08:59 Last Admin: 10/17/20 08:16 Dose: 325 mg Documented by: Fluticasone/Vilanterol (Fluticasone/Vilanterol 100/25mcg 14 Puffs/Inhaler) 1 pu ffs INH DAILY ROBERT Stop: 11/13/20 08:59 Last Admin: 10/17/20 08:17 Dose: 1 puffs Documented by: Furosemide (Furosemide 20 Mg Tab) 20 mg PO BID17 ROBERT Stop: 11/14/20 16:59 Last Admin: 10/17/20 16:38 Dose: 20 mg Documented by: Guaifenesin (Guaifenesin 600 Mg Tabcr) 600 mg PO Q12 ROBERT Stop: 11/14/20 08:59 Last Admin: 10/17/20 08:18 Dose: 600 mg Documented by: Heparin Sodium (Beef Lung) (Heparin 10 Unit/Ml 5 Ml Flush) 5 ml FLUSH PRN PRN PRN Reason: Flush Stop: 11/13/20 08:12 Last Admin: 10/16/20 12:37 Dose: 5 ml Documented by: Hydromorphone HCl (Hydromorphone Hcl 2 Mg Tab) 0.5 mg PO Q4H PRN PRN Reason: Pain Stop: 10/27/20 16:43 Last Admin: 10/17/20 14:27 Dose: 0.5 mg Documented by: Pantoprazole Sodium 40 mg/ (Syringe) 10 mls @ 5 mls/min IV BID ROBERT Stop: 11/13/20 20:59 Last Admin: 10/17/20 08:20 Dose: 5 mls/min Documented by: Daptomycin 900 mg/ Syringe 18 mls @ 9 mls/min IV Q24H ROBERT; Protocol Stop: 11/05/20 15:59 Last Admin: 10/17/20 16:38 Dose: 9 mls/min Documented by: Piperacillin Sod/Tazobactam (Sod 4.5 gm/ Dextrose) 120 mls @ 30 mls/hr IV Q8H ROBERT; Protocol Stop: 10/24/20 19:59 Ipratropium [place] (Ipratropium [place] Neb Soln 0.02% 2.5 Ml Vial) 0.5 mg INH Q6R ROBERT Stop: 11/14/20 06:59 Last Admin: 10/17/20 19:41 Dose: 0.5 mg Documented by: Levalbuterol HCl (Levalbuterol 1.25mg/0.5ml Neb) 1.25 mg INH Q6R ROBERT Stop: 11/14/20 06:59 Last Admin: 10/17/20 19:41 Dose: 1.25 mg Documented by: Lidocaine (Lidocaine 5% 1 Patch) 1 patch TD DAILY [facility] Stop: 11/13/20 08:59 Last Admin: 10/17/20 08:18 Dose: 1 patch Documented by: Lisinopril (Lisinopril 5 Mg Tab) 5 mg PO DAILY [facility] Stop: 11/13/20 08:59 Last Admin: 10/14/20 07:48 Dose: 5 mg Documented by: Lorazepam (Lorazepam 1 Mg Tab) 0.25 mg PO TID PRN PRN Reason: Anxiety Stop: 11/12/20 16:43 Last Admin: 10/17/20 16:14 Dose: 0.25 mg Documented by: Metoprolol Succinate (Metoprolol Succ 25mg Ext Rel Tab) 25 mg PO QAM [facility] Stop: 11/13/20 08:59 Last Admin: 10/17/20 08:19 Dose: 25 mg Documented by: Miscellaneous (Remove Lidoderm Patch) 1 ea N/A DAILY@2100 [facility] Stop: 11/12/20 20:59 Last Admin: 10/16/20 21:12 Dose: 1 ea Documented by: Miscellaneous Information (Daptomycin Consult Active) 1 ea N/A UD PRN PRN Reason: Consult Stop: 11/16/20 11:06 Miscellaneous Information (Piperacill/Tazobac Consult Active) 1 ea N/A UD PRN PRN Reason: Consult Stop: 11/16/20 14:00 Montelukast Sodium (Montelukast Sodium 10 Mg Tablet) 10 mg PO HS [facility] Stop: 11/12/20 20:59 Last Admin: 10/16/20 21:11 Dose: 10 mg Documented by: Multivitamins (Multivitamin Tab) 1 tab PO QAM [facility] Stop: 11/13/20 08:59 Last Admin: 10/17/20 08:20 Dose: 1 tab Documented by: Ondansetron HCl (Ondansetron 2 Mg Od Tab) 2 mg PO Q4H PRN PRN Reason: Nausea And Vomiting Stop: 11/16/20 12:59 Last Admin: 10/17/20 16:14 Dose: 2 mg Documented by: Polyethylene Glycol (Polyethylene (Miralax) 17 Gm Pack) 17 gm PO BID [facility] Stop: 11/16/20 20:59 Prednisone (Prednisone 20 Mg Tab) 40 mg PO DAILY [facility] Stop: 10/20/20 08:59 Last Admin: 10/17/20 08:20 Dose: 40 mg Documented by: Pregabalin (Pregabalin 150 Mg Cap) 150 mg PO TID [facility]ERT Stop: 11/12/20 16:43 Last Admin: 10/17/20 13:46 Dose: 150 mg Documented by: Trazodone HCl (Trazodone Hcl 50 Mg Tab) 50 mg PO HS ROBERT Stop: 11/12/20 20:59 Last Admin: 10/16/20 21:11 Dose: 50 mg Documented by: Umeclidinium [place] (Umeclidinium [place] 62.5mcg/Blister 7 Puffs/Inhaler) 1 puffs INH DAILY [facility]ERT Stop: 11/13/20 08:59 Last Admin: 10/17/20 08:21 Dose: 1 puffs Documented by: Vitamin D (Cholecalciferol 1,000 Units 25 Mcg Tab) 5,000 units PO DAILY [facility]ERT Stop: 11/13/20 08:59 Last Admin: 10/17/20 08:14 Dose: 5,000 units Documented by: (1) Congestive heart failure Heart failure chronicity: acute Heart failure type: unspecified Qualified Code(s): I50.9 - Heart failure, unspecified (2) Anemia Anemia type: unspecified type Qualified Code(s): D64.9 - Anemia, unspecified (3) COPD (chronic obstructive pulmonary disease) COPD type: unspecified COPD Qualified Code(s): J44.9 - Chronic obstructive pulmonary disease, unspecified
[2020-10-17] MEDS: ATORVASTATIN 20 MG TAB PO SCH (22:02)
[2020-10-17] MEDS: PIPERACILLIN/TAZOBACTAM 4.5 GM in DEXTROSE 5% 100 ML IV SCH (22:02)
[2020-10-17] MEDS: MONTELUKAST SODIUM 10 MG TABLET PO SCH (22:02)
[2020-10-17] MEDS: POLYETHYLENE (MIRALAX) 17 GM PACK PO SCH (22:02)
[2020-10-17] MEDS: traZODone HCL 50 MG TAB PO SCH (22:02)
[2020-10-17] MEDS: AMITRIPTYLINE HCL 25 MG TAB PO SCH (22:03)
[2020-10-17] MEDS ORDERED: FUROSEMIDE 20 MG in SYRINGE 0 ML IV ONE (22:12)
[2020-10-17] MEDS ORDERED: FUROSEMIDE 40 MG/4 ML VIAL IV ONE (22:30)
[2020-10-18] MEDS: LORazepam 1 MG TAB PO PRN ×4 (01:43→20:03)
[2020-10-18] MEDS: IPRATROPIUM BROMIDE NEB SOLN 0.02% 2.5 ML VIAL INH SCH ×4 (02:12→19:44)
[2020-10-18] MEDS: LEVALBUTEROL 1.25MG/0.5ML NEB INH SCH ×4 (02:12→19:45)
[2020-10-18] MEDS: PIPERACILLIN/TAZOBACTAM 4.5 GM in DEXTROSE 5% 100 ML IV SCH ×3 (04:00→20:12)
[2020-10-18 06:10] LABS: Hematocrit (blood only) 30.3 % (37-47); Hemoglobin 9.3 g/dL (12.0-16.0)
[2020-10-18 06:43] LABS: BUN Creatinine Ratio 46.9 (10-20); Calcium 9.6 mg/dl (8.5-10.1); Creatinine Clr Calc Pharmacy 64.9 ml/min; Est GFR (African American) 70.2 ml/min; Est GFR (Non-African American) 60.6 ml/min
--- NOTE | 2020-10-18 07:32 | Hospitalist Progress Note ---
Date of Service October 18, 2020 Assessment & Plan (1) Acute on chronic respiratory failure with hypoxia and hypercapnia: Aspiration pneumonia patient is a 70-year-old female with past medical history of diastolic heart failure, COPD, anxiety, depression, CKD stage III, hypertension, chronic indwelling Gonzalez catheter and GERD presented to the ED with shortness of breath and acute on chronic anemia. Patient is chronically on 2 L of nasal cannula, due to COPD On admission was on 3 to 4 L in the hospital however overnight her oxygen requirement increased significantly, to 10 L (10/15) Stat chest x-ray ordered by cirilo, concerning for pneumonia, aspiration ABG -pH 7.36, PCO2 70, PO2 60, bicarb 39 Procalcitonin ordered Antibiotics started by flume maker/ertapenem, discussed with pharmacy, switched to cefepime to cover for possible Pseudomonas , added flagyl for anaerobic coverage Also started on vancomycin, obtained MRSA nasal swab - negative Discussed linezolid, however due to patient's medication such as Celexa or nortriptyline, linezolid is contraindicated Guaifenesin, flutter valve and incentive spirometry started Pulmonary medicine consulted, recommend CT chest without contrast, which was ordered CT chest - IMPRESSION: 1. Emphysema. 2. Multifocal airspace consolidation is seen throughout both lungs. The appearance is typical for pneumonia/aspiration pneumonitis. Clinical correlation will be required and radiographic follow-up to resolution is recommended. 3. Small to moderate pleural effusions. 4. Mildly enlarged mediastinal lymph nodes are likely reactive. 5. The esophagus appears circumferentially thick walled. Correlate clinically for evidence of esophagitis. This can be further assessed with endoscopy if clinically warranted. 6. Scattered subcentimeter pulmonary nodules have not significantly changed as compared to 10/07/2018. Discussed w/ pulm - given pl. effusions, diuresed w/ IV lasix and w/ albumin. MRSA nasal swab negative, stop vanco, cont. daptomycin as previously for orthopedics infection. Switch cefepime and flagyl to zosyn. Cont. to monitor closely resp. status and oxygen requirements which seem to fluctuate between 3 and 7L. Encourage flutter valve, IS. (2) COPD (chronic obstructive pulmonary disease): - cont. home medications and as above (3) Acute on chronic diastolic CHF (congestive heart failure): (4) Elevated troponin: (5) Congestive heart failure: On admission - Chest x-ray with some pulmonary vascular congestion and some right upper lobe airspace opacities patient denied any cough, fever and absence of any leukocytosis. proBNP of 11,000 on admission. Cardiac enzymes were not concerning. Does use 2-3 L of nasal cannula at baseline, on 4 L of nasal cannula on 10/14 Continued with IV Lasix 40 mg twice daily. Continue to monitor ins and outs along with daily weights. Echo obtained, no change compared to previous study in August 2020. Normal LV systolic function without regional wall motion abnormality, EF 60 to 65%. Cardiology consulted - as patient also complained of chest pain. Chest pain seems to be musculoskeletal in origin. Patient did not appear fluid overload and it was recommended that IV Lasix is stopped and patient is restarted on her home p.o. Lasix. We will continue to closely monitor After aspiration event CT chest obtained, which showed consolidation and also pl. effusions, cont. w/ IV lasix and albumin , as above (6) GERD (gastroesophageal reflux disease): (7) Anemia: GI bleed H. pylori Acute on chronic blood loss anemia - seen by GI at [facility] and also here -At [place] presented with with coffee-ground emesis on arrival -At [place] she underwent EGD (09/22/20), which showed gastritis and small gastric ulcer with no active bleeding. She was found to have H. pylori, and was treated. She finished treatment on October 07 -She is supposed to have a follow-up EGD in 8 weeks to assess ulcer healing (w/ [place] [facility]) -Per [facility] - continue PPI, trend H&H, transfuse as needed, follow up w/ [place] providers -Patient was transfused in [place], and she also obtained 2 units of PRBCs here on admission Hgb stable 8-9 (10/18) Monitor H&H, cont. to closely monitor, may require another blood transfusion g iven her cardiac hx (8) Right femoral fracture: -In [place] underwent right femur removal of hardware. Revision ORIF of right femur. Wound debridement and closure. Placement of antibiotic delivery device. On September 24, 2020, by . -Postop plan at that time was patient will be weightbearing as tolerated on her right lower extremity. She will begin DVT prophylaxis starting the night of postoperative day 0. Orthopedic infectious disease will provide recommendations for antibiotics postoperatively. Will obtain final x-rays of her right femur. Per hospitalist discharge summary, patient was discharged to [facility] -Intraoperative cultures grew 1+ E. faecium and few Staph aureus resistant to oxacillin. Ortho ID was following and recommended daptomycin 900 mg IV daily from September 25 to November 05, 2020. With follow-up CPK weekly, weightbearing of the right lower extremity as tolerated. PICC line was placed for 6 weeks of antibiotics. Following 6 weeks of IV antibiotics, plan will be to indefinitely suppressed with doxycycline monohydrate 100 mg p.o. twice daily due to the presence of extensive hardware in the limb. Lab results to be faxed to ID office at , outpatient follow-up with Ortho ID -DVT prophylaxis achieved with Lovenox 40 twice daily for 3 weeks, end date October 14 -Per discharge summary, patient supposed to follow-up with orthopedics, Dr. Kaba, on October 14 - will reschedule follow up -[place] [facility] - can be contacted at -On current admission, R leg - several incisions with sutures in place, one higher up on the thigh another one lateral to the knee -wound care was consulted as well as orthopedics given her extensive history and poorly healing wounds (9) Morbid obesity: - needs counselling (10) Weakness: (11) Depression: (12) Anxiety: - cont home medications - ativan decreased as per nursing staff pt becomes very somnolent w/ meds (13) History of pulmonary embolism: (14) CKD (chronic kidney disease) stage 3, GFR 30-59 ml/min: - cont to monitor renal function -Try to avoid NSAIDs/ nephrotoxic agents (15) Hypertension: (16) Hyperlipidemia: - monitor BP, cont. home meds (17) Chronic indwelling Gonzalez catheter: Admission and Anticipated Discharge Date Admission Date: October 13, 2020 Subjective Patient seen in follow-up of acute on chronic respiratory failure, aspiration pna, CHF exacerbation Concern for acute GI bleed/anemia Chest pain On supplemental oxygen, currently on 4L via NC, at night seems to require more Last evening was disimpacted by nursing staff Breathing feels about the same for her. Review of Systems Review of Systems: All systems reviewed & are unremarkable except as noted in HPI & below Constitutional: + fatigue; no fever and no chills Respiratory: + cough and + dyspnea (improved) Cardiovascular: no chest pain and no palpitations Gastrointestinal: + constipation; no abdominal pain and no vomiting Physical Exam Physical Exam: General: WD/WN, elderly obese F on 4L via oxymask HENT: NCAT, MMM, EOMI Eyes: PERRL, EOMI, Neck: Supple, normal range of motion CVS: normal rate and rhythm Resp: + rhonchi and crackles (improved), +mild wheezing, on 4 L via NC Abdomen: Soft, ND/NT, +BS Extremities: moves extremities, R lateral leg - there are 2 incisions and sutures, one at upper thigh, one at lateral knee/ some erythema noted Neuro: Awake and alert, answering questions mostly appropriately, face symmetric, speech fluent, moves extremities Skin: warm and dry, no rashes (RLE as above) Results & Data Results & Data ([facility]) Vital Signs (Past 12 Hours) Vital Signs Temp Pulse Pulse Resp BP Pulse Ox 10/18/20 07:08 37.0 C 81 21 132/53 L 91 10/18/20 02:41 70 18 138/49 L 94 10/18/20 00:03 70 10/17/20 22:57 36.5 C 68 22 123/42 L 92 10/17/20 20:17 36.8 C 75 20 165/56 H 91 10/17/20 19:42 75 15 94 Laboratory Results 10/18/20 10/18/20 Range/Units 05:55 05:55 Hgb 9.3 L (12.0-16.0) g/dL Hct 30.3 L (37-47) % Sodium 136 (136-145) mmol/L Potassium 4.0 (3.5-5.1) mmol/L Chloride 91 L (98-107) mmol/L Carbon Dioxide 43 H* (21-32) mmol/L Anion Gap 2.0 L (3-11) BUN 44 H (7-18) mg/dl Creatinine 0.94 (0.6-1.2) mg/dl Est Cr Clr Drug Dosing 64.9 ml/min Est GFR ( Amer) 70.2 ml/min Est GFR (Non-Af Amer) 60.6 ml/min BUN/Creatinine Ratio 46.9 H (10-20) Glucose 92 (70-99) mg/dl Calcium 9.6 (8.5-10.1) mg/dl Medications Administered Current Inpatient Medications Acetaminophen (Acetaminophen 325 Mg Tab) 650 mg PO Q4H PRN PRN Reason: Pain or Fever Stop: 11/12/20 16:43 Last Admin: 10/16/20 03:44 Dose: 650 mg Documented by: Albuterol (Albut/Ipratrop 3mg/0.5mg Neb 3 Ml Vial) 3 ml NEB Q4R PRN PRN Reason: shortness of breath, wheezing Stop: 11/14/20 18:59 Amitriptyline HCl (Amitriptyline Hcl 25 Mg Tab) 25 mg PO HS ROBERT Stop: 11/12/20 20:59 Last Admin: 10/17/20 22:03 Dose: 25 mg Documented by: Atorvastatin Calcium (Atorvastatin 20 Mg Tab) 20 mg PO HS ROBERT Stop: 11/12/20 20:59 Last Admin: 10/17/20 22:02 Dose: 20 mg Documented by: Citalopram Hydrobromide (Citalopram 20 Mg Tab) 10 mg PO QAM ROBERT Stop: 11/13/20 08:59 Last Admin: 10/17/20 08:15 Dose: 10 mg Documented by: Ferrous Sulfate (Ferrous Sulfate 325 Mg Tab) 325 mg PO DAILY ROBERT Stop: 11/13/20 08:59 Last Admin: 10/17/20 08:16 Dose: 325 mg Documented by: Fluticasone/Vilanterol (Fluticasone/Vilanterol 100/25mcg 14 Puffs/Inhaler) 1 puffs INH DAILY ROBERT Stop: 11/13/20 08:59 Last Admin: 10/17/20 08:17 Dose: 1 puffs Documented by: Furosemide (Furosemide 20 Mg Tab) 20 mg PO BID17 ROBERT Stop: 11/14/20 16:59 Last Admin: 10/17/20 16:38 Dose: 20 mg Documented by: Guaifenesin (Guaifenesin 600 Mg Tabcr) 600 mg PO Q12 ROBERT Stop: 11/14/20 08:59 Last Admin: 10/17/20 22:02 Dose: 600 mg Documented by: Heparin Sodium (Beef Lung) (Heparin 10 Unit/Ml 5 Ml Flush) 5 ml FLUSH PRN PRN PRN Reason: Flush Stop: 11/13/20 08:12 Last Admin: 10/16/20 12:37 Dose: 5 ml Documented by: Hydromorphone HCl (Hydromorphone Hcl 2 Mg Tab) 0.5 mg PO Q4H PRN PRN Reason: Pain Stop: 10/27/20 16:43 Last Admin: 10/17/20 14:27 Dose: 0.5 mg Documented by: Pantoprazole Sodium 40 mg/ (Syringe) 10 mls @ 5 mls/min IV BID ROBERT Stop: 11/13/20 20:59 Last Admin: 10/17/20 22:16 Dose: 5 mls/min Documented by: Daptomycin 900 mg/ Syringe 18 mls @ 9 mls/min IV Q24H ROBERT; Protocol Stop: 11/05/20 15:59 Last Admin: 10/17/20 16:38 Dose: 9 mls/min Documented by: Piperacillin Sod/Tazobactam (Sod 4.5 gm/ Dextrose) 120 mls @ 30 mls/hr IV Q8H ROBERT; Protocol Stop: 10/24/20 19:59 Last Admin: 10/18/20 04:00 Dose: 30 mls/hr Documented by: Albumin Human (Albumin 25%) 12.5 gm in 50 mls @ 50 mls/hr IV Q1H ROBERT Stop: 10/18/20 09:29 Ipratropium Biggers (Ipratropium Biggers Neb Soln 0.02% 2.5 Ml Vial) 0.5 mg INH Q6R ROBERT Stop: 11/14/20 06:59 Last Admin: 10/18/20 07:06 Dose: Not Given Documented by: Levalbuterol HCl (Levalbuterol 1.25mg/0.5ml Neb) 1.25 mg INH Q6R ROBERT Stop: 11/14/20 06:59 Last Admin: 10/18/20 07:06 Dose: Not Given Documented by: Lidocaine (Lidocaine 5% 1 Patch) 1 patch TD DAILY ROBERT Stop: 11/13/20 08:59 Last Admin: 10/17/20 08:18 Dose: 1 patch Documented by: Lisinopril (Lisinopril 5 Mg Tab) 5 mg PO DAILY ROBERT Stop: 11/13/20 08:59 Last Admin: 10/14/20 07:48 Dose: 5 mg Documented by: Lorazepam (Lorazepam 1 Mg Tab) 0.25 mg PO TID PRN PRN Reason: Anxiety Stop: 11/12/20 16:43 Last Admin: 10/18/20 01:43 Dose: 0.25 mg Documented by: Metoprolol Succinate (Metoprolol Succ 25mg Ext Rel Tab) 25 mg PO QAM [facility] Stop: 11/13/20 08:59 Last Admin: 10/17/20 08:19 Dose: 25 mg Documented by: Miscellaneous (Remove Lidoderm Patch) 1 ea N/A DAILY@2100 [facility] Stop: 11/12/20 20:59 Last Admin: 10/17/20 22:03 Dose: 1 ea Documented by: Miscellaneous Information (Daptomycin Consult Active) 1 ea N/A UD PRN PRN Reason: Consult Stop: 11/16/20 11:06 Miscellaneous Information (Piperacill/Tazobac Consult Active) 1 ea N/A UD PRN PRN Reason: Consult Stop: 11/16/20 14:00 Montelukast Sodium (Montelukast Sodium 10 Mg Tablet) 10 mg PO HS [facility] Stop: 11/12/20 20:59 Last Admin: 10/17/20 22:02 Dose: 10 mg Documented by: Multivitamins (Multivitamin Tab) 1 tab PO [place] Stop: 11/13/20 08:59 Last Admin: 10/17/20 08:20 Dose: 1 tab Documented by: Ondansetron HCl (Ondansetron 2 Mg Od Tab) 2 mg PO Q4H PRN PRN Reason: Nausea And Vomiting Stop: 11/16/20 12:59 Last Admin: 10/17/20 16:14 Dose: 2 mg Documented by: Polyethylene Glycol (Polyethylene (Miralax) 17 Gm Pack) 17 gm PO BID [facility] Stop: 11/16/20 20:59 Last Admin: 10/17/20 22:02 Dose: 17 gm Documented by: Prednisone (Prednisone 20 Mg Tab) 40 mg PO DAILY [facility] Stop: 10/20/20 08:59 Last Admin: 10/17/20 08:20 Dose: 40 mg Documented by: Pregabalin (Pregabalin 150 Mg Cap) 150 mg PO TID [facility] Stop: 11/12/20 16:43 Last Admin: 10/17/20 22:02 Dose: 150 mg Documented by: Trazodone HCl (Trazodone Hcl 50 Mg Tab) 50 mg PO HS ROBERT Stop: 11/12/20 20:59 Last Admin: 10/17/20 22:02 Dose: 50 mg Documented by: Umeclidinium Biggers (Umeclidinium Biggers 62.5mcg/Blister 7 Puffs/Inhaler) 1 puffs INH DAILY ROBERT Stop: 11/13/20 08:59 Last Admin: 10/17/20 08:21 Dose: 1 puffs Documented by: Vitamin D (Cholecalciferol 1,000 Units 25 Mcg Tab) 5,000 units PO DAILY ROBERT Stop: 11/13/20 08:59 Last Admin: 10/17/20 08:14 Dose: 5,000 units Documented by: (1) Congestive heart failure Heart failure chronicity: acute Heart failure type: unspecified Qualified Code(s): I50.9 - Heart failure, unspecified (2) Anemia Anemia type: unspecified type Qualified Code(s): D64.9 - Anemia, unspecified (3) COPD (chronic obstructive pulmonary disease) COPD type: unspecified COPD Qualified Code(s): J44.9 - Chronic obstructive pulmonary disease, unspecified
[2020-10-18] MEDS: ONDANSETRON 2 MG OD TAB PO PRN ×3 (07:48→20:04)
[2020-10-18] MEDS: HYDROmorphone HCL 2 MG TAB PO PRN (08:50)
[2020-10-18] MEDS: PANTOprazole 40 MG in SYRINGE 0 ML IV SCH ×2 (08:53→21:08)
[2020-10-18] MEDS: ALBUMIN 25% 12.5 GM/50 ML VIAL IV SCH ×2 (08:55→10:24)
[2020-10-18] MEDS: predniSONE 20 MG TAB PO SCH (08:57)
[2020-10-18] MEDS: CITALOPRAM 20 MG TAB PO SCH (08:57)
[2020-10-18] MEDS: CHOLECALCIFEROL 1,000 UNITS 25 MCG TAB PO SCH (08:58)
[2020-10-18] MEDS: MULTIVITAMIN TAB PO SCH (08:58)
[2020-10-18] MEDS: METOPROLOL SUCC 25MG EXT REL TAB PO SCH (08:58)
[2020-10-18] MEDS: guaiFENesin 600 MG TABCR PO SCH ×2 (08:59→21:08)
[2020-10-18] MEDS: FERROUS SULFATE 325 MG TAB PO SCH (08:59)
[2020-10-18] MEDS: UMECLIDINIUM BROMIDE 62.5MCG/BLISTER 7 PUFFS/INHALER INH SCH (08:59)
[2020-10-18] MEDS: POLYETHYLENE (MIRALAX) 17 GM PACK PO SCH ×3 (08:59→21:08)
[2020-10-18] MEDS ORDERED: DAPTOmycin 500 MG in SYRINGE 0 ML IV SCH (09:00)
[2020-10-18] MEDS ORDERED: VANCOMYCIN TROUGH ONE (09:30)
[2020-10-18] MEDS: FUROSEMIDE 20 MG TAB PO SCH ×2 (09:35→16:58)
[2020-10-18] MEDS: LIDOCAINE 5% 1 PATCH TD SCH (09:36)
[2020-10-18] MEDS: FLUTICASONE/VILANTEROL 100/25MCG 14 PUFFS/INHALER INH SCH (09:36)
[2020-10-18] MEDS: SENNA 8.6 MG TAB PO SCH (09:37)
[2020-10-18] MEDS: PREGABALIN 150 MG CAP PO SCH ×3 (09:37→21:08)
[2020-10-18] MEDS: DAPTOmycin 900 MG in SYRINGE 0 ML IV SCH (16:58)
[2020-10-18] MEDS: MONTELUKAST SODIUM 10 MG TABLET PO SCH (21:08)
[2020-10-18] MEDS: ATORVASTATIN 20 MG TAB PO SCH (21:08)
[2020-10-18] MEDS: AMITRIPTYLINE HCL 25 MG TAB PO SCH (21:08)
[2020-10-18] MEDS: traZODone HCL 50 MG TAB PO SCH (21:08)
[2020-10-19] MEDS: LEVALBUTEROL 1.25MG/0.5ML NEB INH SCH ×4 (01:22→19:23)
[2020-10-19] MEDS: IPRATROPIUM BROMIDE NEB SOLN 0.02% 2.5 ML VIAL INH SCH ×4 (01:22→19:27)
[2020-10-19] MEDS: HYDROmorphone HCL 2 MG TAB PO PRN ×2 (01:29→12:28)
[2020-10-19] MEDS: PIPERACILLIN/TAZOBACTAM 4.5 GM in DEXTROSE 5% 100 ML IV SCH ×3 (04:00→21:36)
[2020-10-19 06:46] LABS: Hematocrit (blood only) 30.7 % (37-47); Hemoglobin 9.2 g/dL (12.0-16.0)
[2020-10-19 07:32] LABS: BUN Creatinine Ratio 39.5 (10-20); Calcium 9.6 mg/dl (8.5-10.1); Creatinine Clr Calc Pharmacy 62.3 ml/min; Est GFR (African American) 66.8 ml/min; Est GFR (Non-African American) 57.6 ml/min; Magnesium 2.4 mg/dl (1.8-2.4); Phosphorus 2.8 mg/dl (2.5-4.9); Potassium 3.8 mmol/L (3.5-5.1)
--- NOTE | 2020-10-19 07:50 | Hospitalist Progress Note ---
Date of Service October 19, 2020 Assessment & Plan (1) Acute on chronic respiratory failure with hypoxia and hypercapnia: Aspiration pneumonia patient is a 70-year-old female with past medical history of diastolic heart failure, COPD, anxiety, depression, CKD stage III, hypertension, chronic indwelling Gonzalez catheter and GERD presented to the ED with shortness of breath and acute on chronic anemia. Patient is chronically on 2 L of nasal cannula, due to COPD On admission was on 3 to 4 L in the hospital however overnight her oxygen requirement increased significantly, to 10 L (10/15) Stat chest x-ray ordered by cirilo, concerning for pneumonia, aspiration ABG -pH 7.36, PCO2 70, PO2 60, bicarb 39 Procalcitonin ordered Antibiotics started by agile project manager/ertapenem, discussed with pharmacy, switched to cefepime to cover for possible Pseudomonas , added flagyl for anaerobic coverage Also started on vancomycin, obtained MRSA nasal swab - negative Discussed linezolid, however due to patient's medication such as Celexa or nortriptyline, linezolid is contraindicated Guaifenesin, flutter valve and incentive spirometry started Pulmonary medicine consulted, recommend CT chest without contrast, which was ordered CT chest - IMPRESSION: 1. Emphysema. 2. Multifocal airspace consolidation is seen throughout both lungs. The appearance is typical for pneumonia/aspiration pneumonitis. Clinical correlation will be required and radiographic follow-up to resolution is recommended. 3. Small to moderate pleural effusions. 4. Mildly enlarged mediastinal lymph nodes are likely reactive. 5. The esophagus appears circumferentially thick walled. Correlate clinically for evidence of esophagitis. This can be further assessed with endoscopy if clinically warranted. 6. Scattered subcentimeter pulmonary nodules have not significantly changed as compared to 10/07/2018. Discussed w/ pulm - given pl. effusions, diuresed w/ IV lasix and w/ albumin. MRSA nasal swab negative, stop vanco, cont. daptomycin as previously for orthopedics infection. Switch cefepime and flagyl to zosyn. Cont. to monitor closely resp. status and oxygen requirements which seem to fluctuate between 3 and 7L. Encourage flutter valve, IS. (2) COPD (chronic obstructive pulmonary disease): - cont. home medications and as above (3) Acute on chronic diastolic CHF (congestive heart failure): (4) Elevated troponin: (5) Congestive heart failure: On admission - Chest x-ray with some pulmonary vascular congestion and some right upper lobe airspace opacities patient denied any cough, fever and absence of any leukocytosis. proBNP of 11,000 on admission. Cardiac enzymes were not concerning. Does use 2-3 L of nasal cannula at baseline, on 4 L of nasal cannula on 10/14 Continued with IV Lasix 40 mg twice daily. Continue to monitor ins and outs along with daily weights. Echo obtained, no change compared to previous study in August 2020. Normal LV systolic function without regional wall motion abnormality, EF 60 to 65%. Cardiology consulted - as patient also complained of chest pain. Chest pain seems to be musculoskeletal in origin. Patient did not appear fluid overload and it was recommended that IV Lasix is stopped and patient is restarted on her home p.o. Lasix. We will continue to closely monitor After aspiration event CT chest obtained, which showed consolidation and also pl. effusions, cont. w/ IV lasix and albumin , as above (6) GERD (gastroesophageal reflux disease): (7) Anemia: GI bleed H. pylori Acute on chronic blood loss anemia - seen by GI at [facility] and also here -At [place] presented with with coffee-ground emesis on arrival -At [place] she underwent EGD (09/22/20), which showed gastritis and small gastric ulcer with no active bleeding. She was found to have H. pylori, and was treated. She finished treatment on October 07 -She is supposed to have a follow-up EGD in 8 weeks to assess ulcer healing (w/ [facility]) -Per [facility] - continue PPI, trend H&H, transfuse as needed, follow up w/ [place] providers -Patient was transfused in [place], and she also obtained 2 units of PRBCs here on admission Hgb stable 8-9 (10/18) Monitor H&H, cont. to closely monitor, may require another blood transfusion g iven her cardiac hx (8) Right femoral fracture: -In [place] underwent right femur removal of hardware. Revision ORIF of right femur. Wound debridement and closure. Placement of antibiotic delivery device. On September 24, 2020, by . -Postop plan at that time was patient will be weightbearing as tolerated on her right lower extremity. She will begin DVT prophylaxis starting the night of postoperative day 0. Orthopedic infectious disease will provide recommendations for antibiotics postoperatively. Will obtain final x-rays of her right femur. Per hospitalist discharge summary, patient was discharged to [facility] -Intraoperative cultures grew 1+ E. faecium and few Staph aureus resistant to oxacillin. Ortho ID was following and recommended daptomycin 900 mg IV daily from September 25 to November 05, 2020. With follow-up CPK weekly, weightbearing of the right lower extremity as tolerated. PICC line was placed for 6 weeks of antibiotics. Following 6 weeks of IV antibiotics, plan will be to indefinitely suppressed with doxycycline monohydrate 100 mg p.o. twice daily due to the presence of extensive hardware in the limb. Lab results to be faxed to ID office at , outpatient follow-up with Ortho ID (Daptomycin dose was confirmed between Ortho ID in [place] and pharmacist at [facility]) -DVT prophylaxis achieved with Lovenox 40 twice daily for 3 weeks, end date October 14 -Per discharge summary, patient supposed to follow-up with orthopedics, Dr. Kaba, on October 14 - will reschedule follow up -[place] [facility] - can be contacted at -On current admission, R leg - several incisions with sutures in place, one higher up on the thigh another one lateral to the knee -wound care was consulted as well as orthopedics given her extensive history and poorly healing wounds (9) Morbid obesity: - needs counselling (10) Weakness: (11) Depression: (12) Anxiety: - cont home medications - ativan decreased as per nursing staff pt becomes very somnolent w/ meds (13) History of pulmonary embolism: (14) CKD (chronic kidney disease) stage 3, GFR 30-59 ml/min: - cont to monitor renal function -Try to avoid NSAIDs/ nephrotoxic agents (15) Hypertension: (16) Hyperlipidemia: - monitor BP, cont. home meds (17) Chronic indwelling Gonzalez catheter: Admission and Anticipated Discharge Date Admission Date: October 13, 2020 Subjective Patient seen in follow-up of acute on chronic respiratory failure, aspiration pna, CHF exacerbation Concern for acute GI bleed/anemia Chest pain On supplemental oxygen, currently on ~4-5L via [place] Other night she needed to be disimpacted by nursing staff, now having loose stools Breathing feels about the same for her, she has no complaints. Encouraged flutter valve. Review of Systems Review of Systems: All systems reviewed & are unremarkable except as noted in HPI & below Constitutional: + fatigue; no fever and no chills Respiratory: + cough and + dyspnea (improved) Cardiovascular: no chest pain and no palpitations Gastrointestinal: no abdominal pain, no nausea and no vomiting Physical Exam Physical Exam: General: WD/WN, elderly obese F on suppl. O2 via NC HENT: NCAT, MMM, EOMI Eyes: PERRL, EOMI, Neck: Supple, normal range of motion CVS: normal rate and rhythm Resp: + rhonchi and crackles (improved), +mild wheezing, on suppl. O2 via NC Abdomen: Soft, ND/NT, +BS Extremities: moves extremities, R lateral leg - there are 2 incisions and sutur es, one at upper thigh, one at lateral knee/ some erythema noted Neuro: Awake and alert, answering questions mostly appropriately, face symmetric, speech fluent, moves extremities Skin: warm and dry, no rashes (RLE as above) Results & Data Results & Data ([facility]) Vital Signs (Past 12 Hours) Vital Signs Temp Pulse Pulse Resp BP Pulse Ox 10/19/20 02:55 36.8 C 76 18 121/45 L 96 10/18/20 23:47 84 10/18/20 22:55 36.7 C 78 20 116/50 L 96 Laboratory Results 10/19/20 10/19/20 Range/Units 06:34 06:34 Hgb 9.2 L (12.0-16.0) g/dL Hct 30.7 L (37-47) % Sodium 135 L (136-145) mmol/L Potassium 3.8 (3.5-5.1) mmol/L Chloride 90 L (98-107) mmol/L Carbon Dioxide 42 H* (21-32) mmol/L Anion Gap 3.0 (3-11) BUN 39 H (7-18) mg/dl Creatinine 0.98 (0.6-1.2) mg/dl Est Cr Clr Drug Dosing 62.3 ml/min Est GFR ( Amer) 66.8 ml/min Est GFR (Non-Af Amer) 57.6 ml/min BUN/Creatinine Ratio 39.5 H (10-20) Glucose 84 (70-99) mg/dl Calcium 9.6 (8.5-10.1) mg/dl Phosphorus 2.8 (2.5-4.9) mg/dl Magnesium 2.4 (1.8-2.4) mg/dl Medications Administered Current Inpatient Medications Acetaminophen (Acetaminophen 325 Mg Tab) 650 mg PO Q4H PRN PRN Reason: Pain or Fever Stop: 11/12/20 16:43 Last Admin: 10/16/20 03:44 Dose: 650 mg Documented by: Albuterol (Albut/Ipratrop 3mg/0.5mg Neb 3 Ml Vial) 3 ml NEB Q4R PRN PRN Reason: shortness of breath, wheezing Stop: 11/14/20 18:59 Amitriptyline HCl (Amitriptyline Hcl 25 Mg Tab) 25 mg PO HS [facility] Stop: 11/12/20 20:59 Last Admin: 10/18/20 21:08 Dose: 25 mg Documented by: Atorvastatin Calcium (Atorvastatin 20 Mg Tab) 20 mg PO HS ROBERT Stop: 11/12/20 20:59 Last Admin: 10/18/20 21:08 Dose: 20 mg Documented by: Citalopram Hydrobromide (Citalopram 20 Mg Tab) 10 mg PO QAM ROBERT Stop: 11/13/20 08:59 Last Admin: 10/18/20 08:57 Dose: 10 mg Documented by: Ferrous Sulfate (Ferrous Sulfate 325 Mg Tab) 325 mg PO DAILY ROBERT Stop: 11/13/20 08:59 Last Admin: 10/18/20 08:59 Dose: 325 mg Documented by: Fluticasone/Vilanterol (Fluticasone/Vilanterol 100/25mcg 14 Puffs/Inhaler) 1 puffs INH DAILY ROBERT Stop: 11/13/20 08:59 Last Admin: 10/18/20 09:36 Dose: 1 puffs Documented by: Furosemide (Furosemide 20 Mg Tab) 20 mg PO BID17 ROBERT Stop: 11/14/20 16:59 Last Admin: 10/18/20 16:58 Dose: 20 mg Documented by: Guaifenesin (Guaifenesin 600 Mg Tabcr) 600 mg PO Q12 ROBERT Stop: 11/14/20 08:59 Last Admin: 10/18/20 21:08 Dose: 600 mg Documented by: Heparin Sodium (Beef Lung) (Heparin 10 Unit/Ml 5 Ml Flush) 5 ml FLUSH PRN PRN PRN Reason: Flush Stop: 11/13/20 08:12 Last Admin: 10/16/20 12:37 Dose: 5 ml Documented by: Hydromorphone HCl (Hydromorphone Hcl 2 Mg Tab) 0.5 mg PO Q4H PRN PRN Reason: Pain Stop: 10/27/20 16:43 Last Admin: 10/19/20 01:29 Dose: 0.5 mg Documented by: Pantoprazole Sodium 40 mg/ (Syringe) 10 mls @ 5 mls/min IV BID ROBERT Stop: 11/13/20 20:59 Last Admin: 10/18/20 21:08 Dose: 5 mls/min Documented by: Daptomycin 900 mg/ Syringe 18 mls @ 9 mls/min IV Q24H ROBERT; Protocol Stop: 11/05/20 15:59 Last Admin: 10/18/20 16:58 Dose: 9 mls/min Documented by: Piperacillin Sod/Tazobactam (Sod 4.5 gm/ Dextrose) 120 mls @ 30 mls/hr IV Q8H ROBERT; Protocol Stop: 10/24/20 19:59 Last Admin: 10/19/20 04:00 Dose: 30 mls/hr Documented by: Ipratropium [place] (Ipratropium [place] Neb Soln 0.02% 2.5 Ml Vial) 0.5 mg INH Q6R ROBERT Stop: 11/14/20 06:59 Last Admin: 10/19/20 07:08 Dose: Not Given Documented by: Levalbuterol HCl (Levalbuterol 1.25mg/0.5ml Neb) 1.25 mg INH Q6R ROBERT Stop: 11/14/20 06:59 Last Admin: 10/19/20 07:08 Dose: Not Given Documented by: Lidocaine (Lidocaine 5% 1 Patch) 1 patch TD DAILY ROBERT Stop: 11/13/20 08:59 Last Admin: 10/18/20 09:36 Dose: 1 patch Documented by: Lisinopril (Lisinopril 5 Mg Tab) 5 mg PO DAILY ROBERT Stop: 11/13/20 08:59 Last Admin: 10/14/20 07:48 Dose: 5 mg Documented by: Lorazepam (Lorazepam 1 Mg Tab) 0.25 mg PO QID PRN PRN Reason: Anxiety Stop: 11/14/20 08:21 Last Admin: 10/18/20 20:03 Dose: 0.25 mg Documented by: Metoprolol Succinate (Metoprolol Succ 25mg Ext Rel Tab) 25 mg PO QAM [facility] Stop: 11/13/20 08:59 Last Admin: 10/18/20 08:58 Dose: 25 mg Documented by: Miscellaneous (Remove Lidoderm Patch) 1 ea N/A DAILY@2100 [facility] Stop: 11/12/20 20:59 Last Admin: 10/18/20 21:09 Dose: 1 ea Documented by: Miscellaneous Information (Daptomycin Consult Active) 1 ea N/A UD PRN PRN Reason: Consult Stop: 11/16/20 11:06 Miscellaneous Information (Piperacill/Tazobac Consult Active) 1 ea N/A UD PRN PRN Reason: Consult Stop: 11/16/20 14:00 Montelukast Sodium (Montelukast Sodium 10 Mg Tablet) 10 mg PO HS [facility] Stop: 11/12/20 20:59 Last Admin: 10/18/20 21:08 Dose: 10 mg Documented by: Multivitamins (Multivitamin Tab) 1 tab PO [facility] Stop: 11/13/20 08:59 Last Admin: 10/18/20 08:58 Dose: 1 tab Documented by: Ondansetron HCl (Ondansetron 2 Mg Od Tab) 2 mg PO Q4H PRN PRN Reason: Nausea And Vomiting Stop: 11/16/20 12:59 Last Admin: 10/18/20 20:04 Dose: 2 mg Documented by: Polyethylene Glycol (Polyethylene (Miralax) 17 Gm Pack) 17 gm PO BID [facility] Stop: 11/16/20 20:59 Last Admin: 10/18/20 21:00 Dose: Not Given Documented by: Prednisone (Prednisone 20 Mg Tab) 40 mg PO DAILY [facility] Stop: 10/20/20 08:59 Last Admin: 10/18/20 08:57 Dose: 40 mg Documented by: Pregabalin (Pregabalin 150 Mg Cap) 150 mg PO TID [facility] Stop: 11/12/20 16:43 Last Admin: 10/18/20 21:08 Dose: 150 mg Documented by: Sennosides (Senna 8.6 Mg Tab) 17.2 mg PO QAM [facility] Stop: 11/17/20 09:14 Last Admin: 10/18/20 09:37 Dose: 17.2 mg Documented by: Trazodone HCl (Trazodone Hcl 50 Mg Tab) 50 mg PO HS [facility] Stop: 11/12/20 20:59 Last Admin: 10/18/20 21:08 Dose: 50 mg Documented by: Umeclidinium [place] (Umeclidinium [place] 62.5mcg/Blister 7 Puffs/Inhaler) 1 puffs INH DAILY [facility] Stop: 11/13/20 08:59 Last Admin: 10/18/20 08:59 Dose: 1 puffs Documented by: Vitamin D (Cholecalciferol 1,000 Units 25 Mcg Tab) 5,000 units PO DAILY [facility] Stop: 11/13/20 08:59 Last Admin: 10/18/20 08:58 Dose: 5,000 units Documented by: (1) Congestive heart failure Heart failure chronicity: acute Heart failure type: unspecified Qualified Code(s): I50.9 - Heart failure, unspecified (2) Anemia Anemia type: unspecified type Qualified Code(s): D64.9 - Anemia, unspecified (3) COPD (chronic obstructive pulmonary disease) COPD type: unspecified COPD Qualified Code(s): J44.9 - Chronic obstructive pulmonary disease, unspecified
[2020-10-19] MEDS: SENNA 8.6 MG TAB PO SCH (08:22)
[2020-10-19] MEDS: POLYETHYLENE (MIRALAX) 17 GM PACK PO SCH ×2 (08:22→21:13)
[2020-10-19] MEDS: PANTOprazole 40 MG in SYRINGE 0 ML IV SCH ×2 (08:30→21:11)
[2020-10-19] MEDS: LORazepam 1 MG TAB PO PRN ×3 (08:30→21:36)
[2020-10-19] MEDS: FUROSEMIDE 20 MG TAB PO SCH ×2 (08:31→17:22)
[2020-10-19] MEDS: ONDANSETRON 2 MG OD TAB PO PRN (08:31)
[2020-10-19] MEDS: MULTIVITAMIN TAB PO SCH (08:31)
[2020-10-19] MEDS: METOPROLOL SUCC 25MG EXT REL TAB PO SCH (08:32)
[2020-10-19] MEDS: predniSONE 20 MG TAB PO SCH (08:32)
[2020-10-19] MEDS: CHOLECALCIFEROL 1,000 UNITS 25 MCG TAB PO SCH (08:32)
[2020-10-19] MEDS: FERROUS SULFATE 325 MG TAB PO SCH (08:32)
[2020-10-19] MEDS: CITALOPRAM 20 MG TAB PO SCH (08:32)
[2020-10-19] MEDS: UMECLIDINIUM BROMIDE 62.5MCG/BLISTER 7 PUFFS/INHALER INH SCH (08:33)
[2020-10-19] MEDS: guaiFENesin 600 MG TABCR PO SCH ×2 (08:33→22:09)
[2020-10-19] MEDS: FLUTICASONE/VILANTEROL 100/25MCG 14 PUFFS/INHALER INH SCH (08:33)
[2020-10-19] MEDS: LIDOCAINE 5% 1 PATCH TD SCH (08:33)
[2020-10-19] MEDS: PREGABALIN 150 MG CAP PO SCH ×3 (08:40→21:11)
--- NOTE | 2020-10-19 11:48 | Cardiology Progress Note ---
Date of Service October 19, 2020 Assessment & Plan (1) Musculoskeletal chest pain: (2) Narcotic dependence: (3) Elevated troponin: (4) Anemia: (5) GERD (gastroesophageal reflux disease): (6) CKD (chronic kidney disease) stage 3, GFR 30-59 ml/min: (7) COPD (chronic obstructive pulmonary disease): Musculoskeletal chest pain secondary to left fourth rib stuck in exhalation and likely sternal contusion secondary to the need for recurrent sternal rubs to arouse patient from sleep. Troponin level above normal lab value likely secondary to prerenal azotemia and possible component of type II myocardial ischemic demand with significant anemia. No wall motion abnormalities on echocardiogram Patient does not examine his volume overloaded, I do not see any component of heart failure, continue outpatient p.o. Lasix No further cardiac test intervention necessary at this time. Given valvular heart disease recommend maintaining hemoglobin greater than 9. Okay to DC to rehab or off telemetry from a cardiac standpoint. No other medication changes were made at this time. Would consider avoiding further narcotic and anxiolytic medications given events of early this a.m. Admission and Anticipated Discharge Date Admission Date: October 13, 2020 Subjective Patient seen and examined, chart reviewed. States that she does not feel well today due to being very weak and tired. No improvement of shortness of breath. Review of Systems Review of Systems: All systems reviewed & are unremarkable except as noted in HPI & below Physical Exam Physical Exam: Physical Exam: General: Lethargic. Somewhat difficult to arouse from sleep. Awake, alert and oriented x 3. No acute distress. HEENT: Normocephalic, atraumatic. Pupils equal, round and reactive to light and accommodation. Extraocular muscles are intact. Anicteric sclera. Moist mucous membranes. Neck: No JVD. No bruit. Cardiovascular: Regular. No S-4. Normal S-1 and S-2. No S-3. No murmurs, rubs or gallops. Pulmonary: Clear to auscultation bilaterally. No rales, rhonchi, or wheezing. Abdomen: Bowel sounds x 4, soft. No rebound, guarding or tenderness. No organomegaly. Extremities: No clubbing, cyanosis or edema. +2 pedal pulses bilaterally. Skin: Warm and dry. Musculoskeletal: Direct palpation of the left fourth rib head was able to reproduce patient's pain and left fourth rib found to be stuck in exhalation. Results & Data ([facility]) Vital Signs (Past 12 Hours) Vital Signs Temp Pulse Resp BP Pulse Ox 10/19/20 11:11 36.7 C 84 18 128/66 91 10/19/20 07:55 36.7 C 96 H 18 144/52 H 96 10/19/20 02:55 36.8 C 76 18 121/45 L 96
[2020-10-19] MEDS: ACETAMINOPHEN 325 MG TAB PO PRN ×2 (13:16→22:24)
[2020-10-19] MEDS: DAPTOmycin 900 MG in SYRINGE 0 ML IV SCH (15:39)
[2020-10-19] MEDS: traZODone HCL 50 MG TAB PO SCH (21:11)
[2020-10-19] MEDS: HEPARIN SOD 5,000 UNIT/0.5 ML VIAL SQ SCH (21:14)
[2020-10-19] MEDS: ATORVASTATIN 20 MG TAB PO SCH (22:09)
[2020-10-19] MEDS: AMITRIPTYLINE HCL 25 MG TAB PO SCH (22:09)
[2020-10-19] MEDS: MONTELUKAST SODIUM 10 MG TABLET PO SCH (22:09)
[2020-10-20] MEDS: ONDANSETRON 2 MG OD TAB PO PRN ×3 (00:06→18:15)
[2020-10-20] MEDS: LEVALBUTEROL 1.25MG/0.5ML NEB INH SCH ×4 (00:13→19:43)
[2020-10-20] MEDS: IPRATROPIUM BROMIDE NEB SOLN 0.02% 2.5 ML VIAL INH SCH ×4 (00:13→19:43)
[2020-10-20] MEDS: PIPERACILLIN/TAZOBACTAM 4.5 GM in DEXTROSE 5% 100 ML IV SCH (03:45)
[2020-10-20] MEDS: LORazepam 1 MG TAB PO PRN ×3 (06:32→18:15)
[2020-10-20 06:53] LABS: Hematocrit (blood only) 30.5 % (37-47); Hemoglobin 9.2 g/dL (12.0-16.0)
[2020-10-20 07:50] LABS: BUN Creatinine Ratio 37.9 (10-20); Calcium 8.9 mg/dl (8.5-10.1); Creatinine Clr Calc Pharmacy 60.9 ml/min; Est GFR (African American) 65.2 ml/min; Est GFR (Non-African American) 56.2 ml/min; Magnesium 2.6 mg/dl (1.8-2.4); Potassium 3.8 mmol/L (3.5-5.1)
[2020-10-20 07:59] LABS: Phosphorus 3.8 mg/dl (2.5-4.9)
--- NOTE | 2020-10-20 08:29 | Hospitalist Progress Note ---
Date of Service October 20, 2020 Assessment & Plan (1) Acute on chronic respiratory failure with hypoxia and hypercapnia: Aspiration pneumonia patient is a 70-year-old female with past medical history of diastolic heart failure, COPD, anxiety, depression, CKD stage III, hypertension, chronic indwelling Gonzalez catheter and GERD presented to the ED with shortness of breath and acute on chronic anemia. Patient is chronically on 2 L of nasal cannula, due to COPD On admission was on 3 to 4 L in the hospital however overnight her oxygen requirement increased significantly, to 10 L (10/15) Stat chest x-ray ordered by cirilo, concerning for pneumonia, aspiration ABG -pH 7.36, PCO2 70, PO2 60, bicarb 39 Procalcitonin ordered Antibiotics started by junior linux systems administrator/ertapenem, discussed with pharmacy, switched to cefepime to cover for possible Pseudomonas , added flagyl for anaerobic coverage Also started on vancomycin, obtained MRSA nasal swab - negative Discussed linezolid, however due to patient's medication such as Celexa or nortriptyline, linezolid is contraindicated Guaifenesin, flutter valve and incentive spirometry started Pulmonary medicine consulted, recommend CT chest without contrast, which was ordered CT chest - IMPRESSION: 1. Emphysema. 2. Multifocal airspace consolidation is seen throughout both lungs. The appearance is typical for pneumonia/aspiration pneumonitis. Clinical correlation will be required and radiographic follow-up to resolution is recommended. 3. Small to moderate pleural effusions. 4. Mildly enlarged mediastinal lymph nodes are likely reactive. 5. The esophagus appears circumferentially thick walled. Correlate clinically for evidence of esophagitis. This can be further assessed with endoscopy if clinically warranted. 6. Scattered subcentimeter pulmonary nodules have not significantly changed as compared to 10/07/2018. Discussed w/ pulm - given pl. effusions, diuresed w/ IV lasix and w/ albumin. MRSA nasal swab negative, stop vanco, cont. daptomycin as previously for orthopedics infection. Switch cefepime and flagyl to zosyn. Cont. to monitor closely resp. status and oxygen requirements which seem to fluctuate between 3 and 7L. Encourage flutter valve, IS. 10/20 Currently patient is on 4 L of suppl. O2, overnight was reportedly between 2 and 3 L Switch IV Zosyn to p.o. Augmentin (2) COPD (chronic obstructive pulmonary disease): - cont. home medications and as above (3) Acute on chronic diastolic CHF (congestive heart failure): (4) Elevated troponin: (5) Congestive heart failure: On admission - Chest x-ray with some pulmonary vascular congestion and some right upper lobe airspace opacities patient denied any cough, fever and absence of any leukocytosis. proBNP of 11,000 on admission. Cardiac enzymes were not concerning. Does use 2-3 L of nasal cannula at baseline, on 4 L of nasal cannula on 10/14 Continued with IV Lasix 40 mg twice daily. Continue to monitor ins and outs along with daily weights. Echo obtained, no change compared to previous study in August 2020. Normal LV systolic function without regional wall motion abnormality, EF 60 to 65%. Cardiology consulted - as patient also complained of chest pain. Chest pain seems to be musculoskeletal in origin. Patient did not appear fluid overload and it was recommended that IV Lasix is stopped and patient is restarted on her home p.o. Lasix. We will continue to closely monitor After aspiration event CT chest obtained, which showed consolidation and also pl. effusions, cont. w/ IV lasix and albumin , as above (6) GERD (gastroesophageal reflux disease): (7) Anemia: GI bleed H. pylori Acute on chronic blood loss anemia - seen by GI at [facility] and also here -At [facility] presented with with coffee-ground emesis on arrival -At [facility] she underwent EGD (09/22/20), which showed gastritis and small gastric ulcer with no active bleeding. She was found to have H. pylori, and was treated. She finished treatment on October 07 -She is supposed to have a follow-up EGD in 8 weeks to assess ulcer healing (w/ [facility]) -Per [facility] - continue PPI, trend H&H, transfuse as needed, follow up w/ [facility] providers -Patient was transfused in [place], and she also obtained 2 units of PRBCs here on admission Hgb stable 9.2 (10/20) Monitor H&H, cont. to closely monitor, may require another blood transfusion given her cardiac hx (8) Right femoral fracture: -In [place] underwent right femur removal of hardware. Revision ORIF of right femur. Wound debridement and closure. Placement of antibiotic delivery device. On September 24, 2020, by . -Postop plan at that time was patient will be weightbearing as tolerated on her right lower extremity. She will begin DVT prophylaxis starting the night of postoperative day 0. Orthopedic infectious disease will provide recommendations for antibiotics postoperatively. Will obtain final x-rays of her right femur. Per hospitalist discharge summary, patient was discharged to the orthopedic specialty hospital -Intraoperative cultures grew 1+ E. faecium and few Staph aureus resistant to oxacillin. Ortho ID was following and recommended daptomycin 900 mg IV daily from September 25 to November 05, 2020. With follow-up CPK weekly, weightbearing of the right lower extremity as tolerated. PICC line was placed for 6 weeks of antibiotics. Following 6 weeks of IV antibiotics, plan will be to indefinitely suppressed with doxycycline monohydrate 100 mg p.o. twice daily due to the presence of extensive hardware in the limb. Lab results to be faxed to ID office at , outpatient follow-up with Ortho ID (Daptomycin dose was confirmed between Ortho ID in [place] and pharmacist at [facility]) -DVT prophylaxis achieved with Lovenox 40 twice daily for 3 weeks, end date October 14 -Per discharge summary, patient supposed to follow-up with orthopedics, Dr. Kaba, on October 14 - will reschedule follow up -[facility] - can be contacted at -On current admission, R leg - several incisions with sutures in place, one higher up on the thigh another one lateral to the knee -wound care was consulted as well as orthopedics given her extensive history and poorly healing wounds (9) Morbid obesity: - needs counselling (10) Weakness: (11) Depression: (12) Anxiety: - cont home medications - ativan decreased as per nursing staff pt becomes very somnolent w/ meds (13) History of pulmonary embolism: (14) CKD (chronic kidney disease) stage 3, GFR 30-59 ml/min: - cont to monitor renal function -Try to avoid NSAIDs/ nephrotoxic agents (15) Hypertension: (16) Hyperlipidemia: - monitor BP, cont. home meds (17) Chronic indwelling Gonzalez catheter: -Patient was having loose stools after requiring enema and disimpaction for constipation -Recommend to exchange Gonzalez catheter as soon as stools controlled Admission and Anticipated Discharge Date Admission Date: October 13, 2020 Subjective Patient seen in follow-up of acute on chronic respiratory failure, aspiration pna, CHF exacerbation Concern for acute GI bleed/anemia Chest pain On supplemental oxygen, currently on 4L via NC, reportedly on 2-3L overnight Other night she needed to be disimpacted by nursing staff, received enemas, now having loose stools - will need Gonzalez exchanged as soon as we can control loose stools Breathing feels about the same for her, she has no complaints. Encouraged flutter valve. Review of Systems Review of Systems: All systems reviewed & are unremarkable except as noted in HPI & below Constitutional: + fatigue; no fever and no chills Respiratory: + cough and + dyspnea (improved) Gastrointestinal: no abdominal pain, no nausea and no vomiting Physical Exam Physical Exam: General: WD/WN, elderly obese F on suppl. O2 4L via NC HENT: NCAT, MMM, EOMI Eyes: PERRL, EOMI, Neck: Supple, normal range of motion CVS: normal rate and rhythm Resp: + coarse breath sounds, on suppl. O2 via NC Abdomen: Soft, ND/NT, +BS Extremities: moves extremities, R lateral leg - there are 2 incisions and sutures, one at upper thigh, one at lateral knee/ some erythema noted Neuro: Awake and alert, answering questions mostly appropriately, face symmetric, speech fluent, moves extremities Skin: warm and dry, no rashes (RLE as above) Results & Data Results & Data ([facility]) Vital Signs (Past 12 Hours) Vital Signs Temp Pulse Pulse Resp BP BP Pulse Ox 10/20/20 07:48 82 10/20/20 07:15 98 H 18 92 10/20/20 07:08 36.9 C 89 16 150/67 H 91 10/20/20 03:44 36.5 C 69 14 133/57 L 96 10/20/20 00:42 81 10/19/20 23:02 36.8 C 76 20 120/54 L 93 Laboratory Results 10/20/20 10/20/20 Range/Units 06:10 06:10 Hgb 9.2 L (12.0-16.0) g/dL Hct 30.5 L (37-47) % Sodium 136 (136-145) mmol/L Potassium 3.8 (3.5-5.1) mmol/L Chloride 92 L (98-107) mmol/L Carbon Dioxide 42 H* (21-32) mmol/L Anion Gap 2.0 L (3-11) BUN 38 H (7-18) mg/dl Creatinine 1.00 (0.6-1.2) mg/dl Est Cr Clr Drug Dosing 60.9 ml/min Est GFR ( Amer) 65.2 ml/min Est GFR (Non-Af Amer) 56.2 ml/min BUN/Creatinine Ratio 37.9 H (10-20) Glucose 101 H (70-99) mg/dl Calcium 8.9 (8.5-10.1) mg/dl Phosphorus 3.8 D (2.5-4.9) mg/dl Magnesium 2.6 H (1.8-2.4) mg/dl Medications Administered Current Inpatient Medications Acetaminophen (Acetaminophen 325 Mg Tab) 650 mg PO Q4H PRN PRN Reason: Pain or Fever Stop: 11/12/20 16:43 Last Admin: 10/19/20 22:24 Dose: 650 mg Documented by: Albuterol (Albut/Ipratrop 3mg/0.5mg Neb 3 Ml Vial) 3 ml NEB Q4R PRN PRN Reason: shortness of breath, wheezing Stop: 11/14/20 18:59 Last Admin: 10/19/20 19:23 Dose: 3 ml Documented by: Amitriptyline HCl (Amitriptyline Hcl 25 Mg Tab) 25 mg PO [facility] Stop: 11/12/20 20:59 Last Admin: 10/19/20 22:09 Dose: 25 mg Documented by: Atorvastatin Calcium (Atorvastatin 20 Mg Tab) 20 mg PO [facility] Stop: 11/12/20 20:59 Last Admin: 10/19/20 22:09 Dose: 20 mg Documented by: Citalopram Hydrobromide (Citalopram 20 Mg Tab) 10 mg PO [facility] Stop: 11/13/20 08:59 Last Admin: 10/19/20 08:32 Dose: 10 mg Documented by: Ferrous Sulfate (Ferrous Sulfate 325 Mg Tab) 325 mg PO DAILY [facility] Stop: 11/13/20 08:59 Last Admin: 10/19/20 08:32 Dose: 325 mg Documented by: Fluticasone/Vilanterol (Fluticasone/Vilanterol 100/25mcg 14 Puffs/Inhaler) 1 puffs INH DAILY [facility] Stop: 11/13/20 08:59 Last Admin: 10/19/20 08:33 Dose: 1 puffs Documented by: Furosemide (Furosemide 20 Mg Tab) 20 mg PO [id number] [facility] Stop: 11/14/20 16:59 Last Admin: 10/19/20 17:22 Dose: 20 mg Documented by: Guaifenesin (Guaifenesin 600 Mg Tabcr) 600 mg PO Q12 [facility] Stop: 11/14/20 08:59 Last Admin: 10/19/20 22:09 Dose: 600 mg Documented by: Heparin Sodium (Beef Lung) (Heparin 10 Unit/Ml 5 Ml Flush) 5 ml FLUSH PRN PRN PRN Reason: Flush Stop: 11/13/20 08:12 Last Admin: 10/16/20 12:37 Dose: 5 ml Documented by: Heparin Sodium (Porcine) (Heparin Sod 5,000 Unit/0.5 Ml Vial) 5,000 units SQ Q12 [facility] Stop: 11/18/20 20:59 Last Admin: 10/19/20 21:14 Dose: 5,000 units Documented by: Hydromorphone HCl (Hydromorphone Hcl 2 Mg Tab) 0.5 mg PO Q4H PRN PRN Reason: Pain Stop: 10/27/20 16:43 Last Admin: 10/19/20 12:28 Dose: 0.5 mg Documented by: Pantoprazole Sodium 40 mg/ (Syringe) 10 mls @ 5 mls/min IV BID [facility] Stop: 11/13/20 20:59 Last Admin: 10/19/20 21:11 Dose: 5 mls/min Documented by: Daptomycin 900 mg/ Syringe 18 mls @ 9 mls/min IV Q24H [facility]; Protocol Stop: 11/05/20 15:59 Last Admin: 10/19/20 15:39 Dose: 9 mls/min Documented by: Piperacillin Sod/Tazobactam (Sod 4.5 gm/ Dextrose) 120 mls @ 30 mls/hr IV Q8H [facility]; Protocol Stop: 10/24/20 19:59 Last Admin: 10/20/20 03:45 Dose: 30 mls/hr Documented by: Ipratropium [place] (Ipratropium [place] Neb Soln 0.02% 2.5 Ml Vial) 0.5 mg INH Q6R [facility] Stop: 11/14/20 06:59 Last Admin: 10/20/20 07:15 Dose: 0.5 mg Documented by: Levalbuterol HCl (Levalbuterol 1.25mg/0.5ml Neb) 1.25 mg INH Q6R [facility] Stop: 11/14/20 06:59 Last Admin: 10/20/20 07:15 Dose: 1.25 mg Documented by: Lidocaine (Lidocaine 5% 1 Patch) 1 patch TD DAILY [facility] Stop: 11/13/20 08:59 Last Admin: 10/19/20 08:33 Dose: 1 patch Documented by: Lisinopril (Lisinopril 5 Mg Tab) 5 mg PO DAILY [facility] Stop: 11/13/20 08:59 Last Admin: 10/14/20 07:48 Dose: 5 mg Documented by: Lorazepam (Lorazepam 1 Mg Tab) 0.25 mg PO QID PRN PRN Reason: Anxiety Stop: 11/14/20 08:21 Last Admin: 10/20/20 06:32 Dose: 0.25 mg Documented by: Metoprolol Succinate (Metoprolol Succ 25mg Ext Rel Tab) 25 mg PO QAM [facility] Stop: 11/13/20 08:59 Last Admin: 10/19/20 08:32 Dose: 25 mg Documented by: Miscellaneous (Remove Lidoderm Patch) 1 ea N/A DAILY@2100 [facility] Stop: 11/12/20 20:59 Last Admin: 10/19/20 22:09 Dose: 1 ea Documented by: Miscellaneous Information (Daptomycin Consult Active) 1 ea N/A UD PRN PRN Reason: Consult Stop: 11/16/20 11:06 Miscellaneous Information (Piperacill/Tazobac Consult Active) 1 ea N/A UD PRN PRN Reason: Consult Stop: 11/16/20 14:00 Montelukast Sodium (Montelukast Sodium 10 Mg Tablet) 10 mg PO HS [facility] Stop: 11/12/20 20:59 Last Admin: 10/19/20 22:09 Dose: 10 mg Documented by: Multivitamins (Multivitamin Tab) 1 tab PO QAM [facility] Stop: 11/13/20 08:59 Last Admin: 10/19/20 08:31 Dose: 1 tab Documented by: Ondansetron HCl (Ondansetron 2 Mg Od Tab) 2 mg PO Q4H PRN PRN Reason: Nausea And Vomiting Stop: 11/16/20 12:59 Last Admin: 10/20/20 06:26 Dose: 2 mg Documented by: Polyethylene Glycol (Polyethylene (Miralax) 17 Gm Pack) 17 gm PO BID [facility] Stop: 11/16/20 20:59 Last Admin: 10/19/20 21:13 Dose: Not Given Documented by: Pregabalin (Pregabalin 150 Mg Cap) 150 mg PO TID [facility] Stop: 11/12/20 16:43 Last Admin: 10/19/20 21:11 Dose: 150 mg Documented by: Sennosides (Senna 8.6 Mg Tab) 17.2 mg PO QAM [facility] Stop: 11/17/20 09:14 Last Admin: 10/19/20 08:22 Dose: Not Given Documented by: Trazodone HCl (Trazodone Hcl 50 Mg Tab) 50 mg PO HS [facility] Stop: 11/12/20 20:59 Last Admin: 10/19/20 21:11 Dose: 50 mg Documented by: Umeclidinium [place] (Umeclidinium [place] 62.5mcg/Blister 7 Puffs/Inhaler) 1 puffs INH DAILY [facility] Stop: 11/13/20 08:59 Last Admin: 10/19/20 08:33 Dose: 1 puffs Documented by: Vitamin D (Cholecalciferol 1,000 Units 25 Mcg Tab) 5,000 units PO DAILY [facility] Stop: 11/13/20 08:59 Last Admin: 10/19/20 08:32 Dose: 5,000 units Documented by: (1) COPD (chronic obstructive pulmonary disease) COPD type: unspecified COPD Qualified Code(s): J44.9 - Chronic obstructive pulmonary disease, unspecified (2) Congestive heart failure Heart failure chronicity: acute Heart failure type: unspecified Qualified Code(s): I50.9 - Heart failure, unspecified (3) Anemia Anemia type: unspecified type Qualified Code(s): D64.9 - Anemia, unspecified
[2020-10-20] MEDS: PANTOprazole 40 MG in SYRINGE 0 ML IV SCH ×2 (08:59→19:53)
[2020-10-20] MEDS: PREGABALIN 150 MG CAP PO SCH ×3 (08:59→20:11)
[2020-10-20] MEDS: guaiFENesin 600 MG TABCR PO SCH ×2 (09:00→19:54)
[2020-10-20] MEDS: UMECLIDINIUM BROMIDE 62.5MCG/BLISTER 7 PUFFS/INHALER INH SCH (09:01)
[2020-10-20] MEDS: FLUTICASONE/VILANTEROL 100/25MCG 14 PUFFS/INHALER INH SCH (09:01)
[2020-10-20] MEDS: HEPARIN SOD 5,000 UNIT/0.5 ML VIAL SQ SCH ×2 (09:02→19:53)
[2020-10-20] MEDS: HYDROmorphone HCL 2 MG TAB PO PRN ×2 (10:58→19:54)
[2020-10-20] MEDS: CITALOPRAM 20 MG TAB PO SCH (10:59)
[2020-10-20] MEDS: CHOLECALCIFEROL 1,000 UNITS 25 MCG TAB PO SCH (10:59)
[2020-10-20] MEDS: LIDOCAINE 5% 1 PATCH TD SCH (10:59)
[2020-10-20] MEDS: METOPROLOL SUCC 25MG EXT REL TAB PO SCH (10:59)
[2020-10-20] MEDS: MULTIVITAMIN TAB PO SCH (10:59)
[2020-10-20] MEDS: FERROUS SULFATE 325 MG TAB PO SCH (10:59)
[2020-10-20] MEDS: FUROSEMIDE 20 MG TAB PO SCH ×2 (11:18→16:30)
[2020-10-20] MEDS: ADVANCED PROBIOTIC 1250 MG CAPSULE PO SCH (11:18)
[2020-10-20] MEDS: DAPTOmycin 900 MG in SYRINGE 0 ML IV SCH (16:30)
[2020-10-20] MEDS: AMOXICILLIN/CLAVULANATE 875 MG TAB PO SCH (16:30)
[2020-10-20] MEDS: traZODone HCL 50 MG TAB PO SCH (19:53)
[2020-10-20] MEDS: MONTELUKAST SODIUM 10 MG TABLET PO SCH (19:53)
[2020-10-20] MEDS: AMITRIPTYLINE HCL 25 MG TAB PO SCH (19:54)
[2020-10-20] MEDS: ATORVASTATIN 20 MG TAB PO SCH (19:54)
[2020-10-21] MEDS: IPRATROPIUM BROMIDE NEB SOLN 0.02% 2.5 ML VIAL INH SCH ×4 (00:32→19:03)
[2020-10-21] MEDS: LEVALBUTEROL 1.25MG/0.5ML NEB INH SCH ×4 (00:32→19:03)
[2020-10-21] MEDS: ACETAMINOPHEN 325 MG TAB PO PRN ×2 (03:15→09:18)
[2020-10-21] MEDS: HYDROmorphone HCL 2 MG TAB PO PRN ×2 (03:29→14:20)
[2020-10-21 05:40] LABS: Hematocrit (blood only) 30.2 % (37-47); Hemoglobin 9.3 g/dL (12.0-16.0); Mean Corpuscular Hemoglobin 29.3 pg (25-34); Mean Corpuscular Hgb Conc 30.8 g/dL (32-36); Mean Corpuscular Volume 95.3 fL (80-100); Platelet Count 288 K/uL (130-400); RDW Coefficient of Variation 15.4 % (11.5-14.5); RDW Standard Deviation 53.7 fL (36.4-46.3); Red Blood Count 3.17 M/uL (4.2-5.4); White Blood Count 13.06 K/uL (4.8-10.8)
[2020-10-21 06:52] LABS: BUN Creatinine Ratio 29.7 (10-20); Calcium 8.8 mg/dl (8.5-10.1); Creatinine Clr Calc Pharmacy 47.3 ml/min; Est GFR (African American) 46.2 ml/min; Est GFR (Non-African American) 39.8 ml/min; Potassium 3.8 mmol/L (3.5-5.1)
--- NOTE | 2020-10-21 07:58 | Hospitalist Progress Note ---
Date of Service October 21, 2020 Assessment & Plan (1) Acute on chronic respiratory failure with hypoxia and hypercapnia: Aspiration pneumonia patient is a 70-year-old female with past medical history of diastolic heart failure, COPD, anxiety, depression, CKD stage III, hypertension, chronic indwelling Gonzalez catheter and GERD presented to the ED with shortness of breath and acute on chronic anemia. Patient is chronically on 2 L of nasal cannula, due to COPD On admission was on 3 to 4 L in the hospital however overnight her oxygen requirement increased significantly, to 10 L (10/15) Stat chest x-ray ordered by cirilo, concerning for pneumonia, aspiration ABG -pH 7.36, PCO2 70, PO2 60, bicarb 39 Procalcitonin ordered Antibiotics started by belt buckle maker/ertapenem, discussed with pharmacy, switched to cefepime to cover for possible Pseudomonas , added flagyl for anaerobic coverage Also started on vancomycin, obtained MRSA nasal swab - negative Discussed linezolid, however due to patient's medication such as Celexa or nortriptyline, linezolid is contraindicated Guaifenesin, flutter valve and incentive spirometry started Pulmonary medicine consulted, recommend CT chest without contrast, which was ordered CT chest - IMPRESSION: 1. Emphysema. 2. Multifocal airspace consolidation is seen throughout both lungs. The appearance is typical for pneumonia/aspiration pneumonitis. Clinical correlation will be required and radiographic follow-up to resolution is recommended. 3. Small to moderate pleural effusions. 4. Mildly enlarged mediastinal lymph nodes are likely reactive. 5. The esophagus appears circumferentially thick walled. Correlate clinically for evidence of esophagitis. This can be further assessed with endoscopy if clinically warranted. 6. Scattered subcentimeter pulmonary nodules have not significantly changed as compared to 10/07/2018. Discussed w/ pulm - given pl. effusions, diuresed w/ IV lasix and w/ albumin. MRSA nasal swab negative, stop vanco, cont. daptomycin as previously for orthopedics infection. Switch cefepime and flagyl to zosyn. Cont. to monitor closely resp. status and oxygen requirements which seem to fluctuate between 3 and 7L. Encourage flutter valve, IS. 10/20 Currently patient is on 4 L of suppl. O2, overnight was reportedly between 2 and 3 L Switch IV Zosyn to p.o. Augmentin 10/21 Pt had fever overnight, switch Augmentin back to zosyn (2) COPD (chronic obstructive pulmonary disease): - cont. home medications and as above (3) Acute on chronic diastolic CHF (congestive heart failure): (4) Elevated troponin: (5) Congestive heart failure: On admission - Chest x-ray with some pulmonary vascular congestion and some right upper lobe airspace opacities patient denied any cough, fever and absence of any leukocytosis. proBNP of 11,000 on admission. Cardiac enzymes were not concerning. Does use 2-3 L of nasal cannula at baseline, on 4 L of nasal cannula on 10/14 Continued with IV Lasix 40 mg twice daily. Continue to monitor ins and outs along with daily weights. Echo obtained, no change compared to previous study in August 2020. Normal LV systolic function without regional wall motion abnormality, EF 60 to 65%. Cardiology consulted - as patient also complained of chest pain. Chest pain seems to be musculoskeletal in origin. Patient did not appear fluid overload and it was recommended that IV Lasix is stopped and patient is restarted on her home p.o. Lasix. We will continue to closely monitor After aspiration event CT chest obtained, which showed consolidation and also pl. effusions, cont. w/ IV lasix and albumin , as above (6) GERD (gastroesophageal reflux disease): (7) Anemia: GI bleed H. pylori Acute on chronic blood loss anemia - seen by GI at [facility] and also here -At [place] presented with with coffee-ground emesis on arrival -At [place] she underwent EGD (09/22/20), which showed gastritis and small gastric ulcer with no active bleeding. She was found to have H. pylori, and was treated. She finished treatment on October 07 -She is supposed to have a follow-up EGD in 8 weeks to assess ulcer healing (w/ [place] [facility]) -Per [facility] - continue PPI, trend H&H, transfuse as needed, follow up w/ [place] providers -Patient was transfused in [place], and she also obtained 2 units of PRBCs here on admission Hgb stable 9.2 (10/20) Monitor H&H, cont. to closely monitor, may require another blood transfusion given her cardiac hx Fever 10/21 pt had a fever overnight switch Augmentin back to zosyn obtain blood cultx, CXR, UA/U cultx -pt has pna and recent orthopedic procedure however she has been doing well -she has chronic Gonzalez - concern for UA -loose stools - obtain c. diff -Gonzalez removed - per nursing staff tip of catheter w/ stool -continue with straight cath - obtain CT abdomen/pelvis to eval for possible bladder/bowel fistula (8) Right femoral fracture: -In [place] underwent right femur removal of hardware. Revision ORIF of right femur. Wound debridement and closure. Placement of antibiotic delivery device. On September 24, 2020, by . -Postop plan at that time was patient will be weightbearing as tolerated on her right lower extremity. She will begin DVT prophylaxis starting the night of postoperative day 0. Orthopedic infectious disease will provide recommendations for antibiotics postoperatively. Will obtain final x-rays of her right femur. Per hospitalist discharge summary, patient was discharged to [facility] -Intraoperative cultures grew 1+ E. faecium and few Staph aureus resistant to oxacillin. Ortho ID was following and recommended daptomycin 900 mg IV daily from September 25 to November 05, 2020. With follow-up CPK weekly, weightbearing of the right lower extremity as tolerated. PICC line was placed for 6 weeks of antibiotics. Following 6 weeks of IV antibiotics, plan will be to indefinitely suppressed with doxycycline monohydrate 100 mg p.o. twice daily due to the presence of extensive hardware in the limb. Lab results to be faxed to ID office at , outpatient follow-up with Ortho ID (Daptomycin dose was confirmed between Ortho ID in [place] and pharmacist at [facility]) -DVT prophylaxis achieved with Lovenox 40 twice daily for 3 weeks, end date October 14 -Per discharge summary, patient supposed to follow-up with orthopedics, Dr. Kaba, on October 14 - will reschedule follow up -[place] [facility] - can be contacted at -On current admission, R leg - several incisions with sutures in place, one higher up on the thigh another one lateral to the knee -wound care was consulted as well as orthopedics given her extensive history and poorly healing wounds (9) Morbid obesity: - needs counselling (10) Weakness: (11) Depression: (12) Anxiety: - cont home medications - ativan decreased as per nursing staff pt becomes very somnolent w/ meds (13) History of pulmonary embolism: (14) CKD (chronic kidney disease) stage 3, GFR 30-59 ml/min: - cont to monitor renal function -Try to avoid NSAIDs/ nephrotoxic agents (15) Hypertension: (16) Hyperlipidemia: - monitor BP, cont. home meds (17) Chronic indwelling Gonzalez catheter: -Patient was having loose stools after requiring enema and disimpaction for constipation - now has fever (10/21), Gonzalez removed and noted stool at the tip of catheter -UA, U cultx obtained - CT abdomen/pelvis to eval for possible bladder/bowel fistula Admission and Anticipated Discharge Date Admission Date: October 13, 2020 Subjective Patient seen in follow-up of acute on chronic respiratory failure, aspiration pna, CHF exacerbation Concern for acute GI bleed/anemia Chest pain On supplemental oxygen, currently on 4-6L via NC Pt had fever overnight, does not seem that any provider was notified. Other night she needed to be disimpacted by nursing staff, received enemas, then having loose stools, pt also has chronic Gonzalez Review of Systems Review of Systems: All systems reviewed & are unremarkable except as noted in HPI & below Constitutional: + fever, + chills and + fatigue Respiratory: + cough and + dyspnea (improved) Gastrointestinal: + abdominal pain (mild at lower abdomen); no nausea and no vomiting Physical Exam Physical Exam: General: WD/WN, elderly obese F on suppl. O2 4-7L via NC HENT: NCAT, MMM, EOMI Eyes: PERRL, EOMI, Neck: Supple, normal range of motion CVS: normal rate and rhythm Resp: + coarse breath sounds, on suppl. O2 via NC Abdomen: Soft, ND/NT, +BS Extremities: moves extremities, R lateral leg - there are 2 incisions and sutures, one at upper thigh, one at lateral knee/ some erythema noted Neuro: Awake and alert, answering questions mostly appropriately, face symmetric, speech fluent, moves extremities Skin: warm and dry, no rashes (RLE as above) Results & Data Results & Data ([facility]) Vital Signs (Past 12 Hours) Vital Signs Temp Pulse Pulse Resp BP BP Pulse Ox 10/21/20 07:51 78 19 90 10/21/20 07:44 36.6 C 78 20 111/57 L 90 06/01/21 07:22 77 10/21/20 06:00 36.7 C 10/21/20 03:59 38.9 C H 78 20 122/45 L 90 10/21/20 00:59 82 10/21/20 00:19 38.4 C H 118 H 24 106/51 L 90 Laboratory Results 10/21/20 10/21/20 10/20/20 Range/Units 05:23 05:23 06:10 WBC 13.06 H (4.8-10.8) K/uL RBC 3.17 L (4.2-5.4) M/uL Hgb 9.3 L (12.0-16.0) g/dL Hct 30.2 L (37-47) % MCV 95.3 (80-100) fL MCH 29.3 (25-34) pg MCHC 30.8 L (32-36) g/dL RDW Std Deviation 53.7 H (36.4-46.3) fL RDW Coeff of Leo 15.4 H (11.5-14.5) % Plt Count 288 (130-400) K/uL MPV 10.0 (7.4-10.4) fL Sodium 133 L (136-145) mmol/L Potassium 3.8 (3.5-5.1) mmol/L Chloride 92 L (98-107) mmol/L Carbon Dioxide 41 H* (21-32) mmol/L Anion Gap 0 L (3-11) BUN 39 H (7-18) mg/dl Creatinine 1.33 H D (0.6-1.2) mg/dl Est Cr Clr Drug Dosing 47.3 ml/min Est GFR ( Amer) 46.2 ml/min Est GFR (Non-Af Amer) 39.8 ml/min BUN/Creatinine Ratio 29.7 H (10-20) Glucose 101 H (70-99) mg/dl Calcium 8.8 (8.5-10.1) mg/dl Phosphorus 3.8 D (2.5-4.9) mg/dl Medications Administered Current Inpatient Medications Acetaminophen (Acetaminophen 325 Mg Tab) 650 mg PO Q4H PRN PRN Reason: Pain or Fever Stop: 11/12/20 16:43 Last Admin: 10/21/20 03:15 Dose: 650 mg Documented by: Albuterol (Albut/Ipratrop 3mg/0.5mg Neb 3 Ml Vial) 3 ml NEB Q4R PRN PRN Reason: shortness of breath, wheezing Stop: 11/14/20 18:59 Last Admin: 10/19/20 19:23 Dose: 3 ml Documented by: Amitriptyline HCl (Amitriptyline Hcl 25 Mg Tab) 25 mg PO HS ROBERT Stop: 11/12/20 20:59 Last Admin: 10/20/20 19:54 Dose: 25 mg Documented by: Amoxicillin/Clavulanate Potassium (Amoxicillin/Clavulanate 875 Mg Tab) 1 tab PO BIDM ROBERT Stop: 10/27/20 16:59 Last Admin: 10/20/20 16:30 Dose: 1 tab Documented by: Atorvastatin Calcium (Atorvastatin 20 Mg Tab) 20 mg PO HS ROBERT Stop: 11/12/20 20:59 Last Admin: 10/20/20 19:54 Dose: 20 mg Documented by: Citalopram Hydrobromide (Citalopram 20 Mg Tab) 10 mg PO QAM ROBERT Stop: 11/13/20 08:59 Last Admin: 10/20/20 10:59 Dose: 10 mg Documented by: Ferrous Sulfate (Ferrous Sulfate 325 Mg Tab) 325 mg PO DAILY ROBERT Stop: 11/13/20 08:59 Last Admin: 10/20/20 10:59 Dose: 325 mg Documented by: Fluticasone/Vilanterol (Fluticasone/Vilanterol 100/25mcg 14 Puffs/Inhaler) 1 puffs INH DAILY ROBERT Stop: 11/13/20 08:59 Last Admin: 10/20/20 09:01 Dose: 1 puffs Documented by: Furosemide (Furosemide 20 Mg Tab) 20 mg PO BID17 ROBERT Stop: 11/14/20 16:59 Last Admin: 10/20/20 16:30 Dose: 20 mg Documented by: Guaifenesin (Guaifenesin 600 Mg Tabcr) 600 mg PO Q12 ROBERT Stop: 11/14/20 08:59 Last Admin: 10/20/20 19:54 Dose: 600 mg Documented by: Heparin Sodium (Beef Lung) (Heparin 10 Unit/Ml 5 Ml Flush) 5 ml FLUSH PRN PRN PRN Reason: Flush Stop: 11/13/20 08:12 Last Admin: 10/20/20 16:30 Dose: 5 ml Documented by: Heparin Sodium (Porcine) (Heparin Sod 5,000 Unit/0.5 Ml Vial) 5,000 units SQ Q12 ROBERT Stop: 11/18/20 20:59 Last Admin: 10/20/20 19:53 Dose: 5,000 units Documented by: Hydromorphone HCl (Hydromorphone Hcl 2 Mg Tab) 0.5 mg PO Q4H PRN PRN Reason: Pain Stop: 10/27/20 16:43 Last Admin: 10/21/20 03:29 Dose: 0.5 mg Documented by: Pantoprazole Sodium 40 mg/ (Syringe) 10 mls @ 5 mls/min IV BID ROBERT Stop: 11/13/20 20:59 Last Admin: 10/20/20 19:53 Dose: 5 mls/min Documented by: Daptomycin 900 mg/ Syringe 18 mls @ 9 mls/min IV Q24H [facility]; Protocol Stop: 11/05/20 15:59 Last Admin: 10/20/20 16:30 Dose: 9 mls/min Documented by: Ipratropium Ackerman (Ipratropium Ackerman Neb Soln 0.02% 2.5 Ml Vial) 0.5 mg INH Q6R ROBERT Stop: 11/14/20 06:59 Last Admin: 10/21/20 07:49 Dose: 0.5 mg Documented by: Lactobacillus Acidoph/Casei/Rhamnos (Advanced Probiotic 1250 Mg Capsule) 2 cap PO DAILY ROBERT Stop: 11/19/20 10:29 Last Admin: 10/20/20 11:18 Dose: 2 cap Documented by: Levalbuterol HCl (Levalbuterol 1.25mg/0.5ml Neb) 1.25 mg INH Q6R ROBERT Stop: 11/14/20 06:59 Last Admin: 10/21/20 07:49 Dose: 1.25 mg Documented by: Lidocaine (Lidocaine 5% 1 Patch) 1 patch TD DAILY ROBERT Stop: 11/13/20 08:59 Last Admin: 10/20/20 10:59 Dose: 1 patch Documented by: Lisinopril (Lisinopril 5 Mg Tab) 5 mg PO DAILY ROBERT Stop: 11/13/20 08:59 Last Admin: 10/14/20 07:48 Dose: 5 mg Documented by: Lorazepam (Lorazepam 1 Mg Tab) 0.25 mg PO QID PRN PRN Reason: Anxiety Stop: 11/14/20 08:21 Last Admin: 10/20/20 18:15 Dose: 0.25 mg Documented by: Metoprolol Succinate (Metoprolol Succ 25mg Ext Rel Tab) [facility] Stop: 11/13/20 08:59 Last Admin: 10/20/20 10:59 Dose: 25 mg Documented by: Miscellaneous (Remove Lidoderm Patch) 1 ea N/A DAILY@2100 [facility] Stop: 11/12/20 20:59 Last Admin: 10/20/20 19:59 Dose: 1 ea Documented by: Miscellaneous Information (Daptomycin Consult Active) 1 ea N/A UD PRN PRN Reason: Consult Stop: 11/16/20 11:06 Montelukast Sodium (Montelukast Sodium 10 Mg Tablet) 10 mg PO [facility] Stop: 11/12/20 20:59 Last Admin: 10/20/20 19:53 Dose: 10 mg Documented by: Multivitamins (Multivitamin Tab) 1 tab PO [facility] Stop: 11/13/20 08:59 Last Admin: 10/20/20 10:59 Dose: 1 tab Documented by: Ondansetron HCl (Ondansetron 2 Mg Od Tab) 2 mg PO Q4H PRN PRN Reason: Nausea And Vomiting Stop: 11/16/20 12:59 Last Admin: 10/20/20 18:15 Dose: 2 mg Documented by: Polyethylene Glycol (Polyethylene (Miralax) 17 Gm Pack) 17 gm PO BID PRN PRN Reason: constipation Stop: 11/16/20 20:59 Pregabalin (Pregabalin 150 Mg Cap) 150 mg PO TID [facility] Stop: 11/12/20 16:43 Last Admin: 10/20/20 20:11 Dose: 150 mg Documented by: Sennosides (Senna 8.6 Mg Tab) [facility] Stop: 11/17/20 09:14 Last Admin: 10/19/20 08:22 Dose: Not Given Documented by: Trazodone HCl (Trazodone Hcl 50 Mg Tab) 50 mg PO [facility] Stop: 11/12/20 20:59 Last Admin: 10/20/20 19:53 Dose: 50 mg Documented by: Umeclidinium Ackerman (Umeclidinium Ackerman 62.5mcg/Blister 7 Puffs/Inhaler) 1 puffs INH DAILY ROBERT Stop: 11/13/20 08:59 Last Admin: 10/20/20 09:01 Dose: 1 puffs Documented by: Vitamin D (Cholecalciferol 1,000 Units 25 Mcg Tab) 5,000 units PO DAILY ROBERT Stop: 11/13/20 08:59 Last Admin: 10/20/20 10:59 Dose: 5,000 units Documented by: (1) Congestive heart failure Heart failure chronicity: acute Heart failure type: unspecified Qualified Code(s): I50.9 - Heart failure, unspecified (2) Anemia Anemia type: unspecified type Qualified Code(s): D64.9 - Anemia, unspecified (3) COPD (chronic obstructive pulmonary disease) COPD type: unspecified COPD Qualified Code(s): J44.9 - Chronic obstructive pulmonary disease, unspecified
[2020-10-21] MEDS: PANTOprazole 40 MG in SYRINGE 0 ML IV SCH ×2 (08:39→20:17)
[2020-10-21] MEDS: AMOXICILLIN/CLAVULANATE 875 MG TAB PO SCH (08:40)
[2020-10-21] MEDS: METOPROLOL SUCC 25MG EXT REL TAB PO SCH (08:40)
[2020-10-21] MEDS: FUROSEMIDE 20 MG TAB PO SCH ×2 (08:40→17:32)
[2020-10-21] MEDS: MULTIVITAMIN TAB PO SCH (08:40)
[2020-10-21] MEDS: CHOLECALCIFEROL 1,000 UNITS 25 MCG TAB PO SCH (08:40)
[2020-10-21] MEDS: CITALOPRAM 20 MG TAB PO SCH (08:40)
[2020-10-21] MEDS: ADVANCED PROBIOTIC 1250 MG CAPSULE PO SCH ×2 (08:40→13:50)
[2020-10-21] MEDS: FERROUS SULFATE 325 MG TAB PO SCH (08:40)
[2020-10-21] MEDS: guaiFENesin 600 MG TABCR PO SCH ×2 (08:41→20:17)
[2020-10-21] MEDS: UMECLIDINIUM BROMIDE 62.5MCG/BLISTER 7 PUFFS/INHALER INH SCH (08:41)
[2020-10-21] MEDS: LIDOCAINE 5% 1 PATCH TD SCH (08:41)
[2020-10-21] MEDS: FLUTICASONE/VILANTEROL 100/25MCG 14 PUFFS/INHALER INH SCH (08:41)
[2020-10-21] MEDS: HEPARIN SOD 5,000 UNIT/0.5 ML VIAL SQ SCH ×2 (08:47→21:05)
[2020-10-21] MEDS: PREGABALIN 150 MG CAP PO SCH ×3 (08:47→21:04)
[2020-10-21] MEDS: LORazepam 1 MG TAB PO PRN ×2 (09:18→18:14)
[2020-10-21] MEDS: ONDANSETRON 2 MG OD TAB PO PRN (09:32)
[2020-10-21] MEDS ORDERED: CONSULT PHARMACY STA (12:12)
[2020-10-21] MEDS ORDERED: PIPERACILL/TAZOBAC CONSULT ACTIVE PRN (12:29)
[2020-10-21] MEDS ORDERED: PIPERACILLIN/TAZOBACTAM 4.5 GM in DEXTROSE 5% 100 ML IV ONE (13:00)
[2020-10-21] MEDS: DAPTOmycin 900 MG in SYRINGE 0 ML IV SCH (13:50)
--- NOTE | 2020-10-21 14:34 | XRay Report ---
XR chest 1V portable CLINICAL HISTORY: follow up, fever COMPARISON STUDY: October 09, 2020 FINDINGS: No pneumothorax. Interval improvement/redistribution of bilateral pleural effusion. Evaluation is limited due to mild rotation. Stable appearance of opacities within right upper lung. Unchanged atelectasis/infiltrates at bilatera l bases. Cardiomediastinal silhouette is stable; stable mild mediastinal shift to the right likely due to volu me loss within right lung.. Aorta is calcified. Pulmonary vasculature is obscured.. Osseous structures: unremarkable vertebral bodies are poorly seen. Stable position of right-sided PICC line. IMPRESSION: 1. Mild interval improvement/redistribution of bilateral pleural effusion. 2. Unchanged opacities within bilateral lungs which could represent pneumonia. 3. Atherosclerosis. ACT 112: Negative or not required by law. The above report was generated using voice recognition software. It may contain grammatical, syntax o r spelling errors. Electronically signed by: Laure Corbin DO 10/21/2020 2:33 PM
--- NOTE | 2020-10-21 15:33 | Progress Notes ---
DATE: 10/21/2020 She is resting comfortably in bed. She did have a fever. She did not attend her appointment at [place] today. Her white count is 13 and her hemoglobin 9, hematocrit 30, platelets are 288. Her PRP is noted. Her right leg incisions are healing well. The proximal incision is very healthy and benign. Sutures removed. The more distal incision shows a very faint if any erythema and a slight bit of induration, but no drainage. The sutures were removed from there also. She declined PT today because she was tired. Encouragement is offered. We will continue to follow her while she is here in the hospital, but eventually we would like to get her back down to [place] for a routine followup. I have reviewed her x-rays, which show that her hardware is intact. She has a total hip and a total knee. There is a short proximal plate and the intramedullary poncho. Her fracture alignment looks good and the fracture is healing. We have asked her to work on ankle movement, leg lifts, knee bending. We will continue to monitor. There was no significant tenderness or substantial swelling of the fractured area or surgical incision sites. We will update the [place] care team.
[2020-10-21] MEDS: PIPERACILLIN/TAZOBACTAM 4.5 GM in DEXTROSE 5% 100 ML IV SCH (17:32)
[2020-10-21 18:02] LABS: Appearance Urine Clear (Clear); Bacteria Urine Automated Negative (Negative); Bilirubin Urine Negative (Negative); Blood Urine Negative (Negative); Color Urine Yellow; Glucose Urine UA Negative (Negative); Ketones Urine Negative (Negative); Leukocyte Esterase Urine Negative (Negative); Nitrite Urine Negative (Negative); Protein Urine 1+ (Negative); RBC Urine Automated 0-4 /hpf (0-4); Specific Gravity Urine 1.018 (1.000-1.030); Urobilinogen Urine Negative (Negative)
[2020-10-21] MEDS ORDERED: SODIUM CHLORIDE 0.9% 500 ML IV SCH (19:20)
[2020-10-21] MEDS: AMITRIPTYLINE HCL 25 MG TAB PO SCH (21:04)
[2020-10-21] MEDS: MONTELUKAST SODIUM 10 MG TABLET PO SCH (21:04)
[2020-10-21] MEDS: traZODone HCL 50 MG TAB PO SCH (21:04)
[2020-10-21] MEDS: ATORVASTATIN 20 MG TAB PO SCH (21:05)
[2020-10-21] MEDS ORDERED: OPTIRAY 320 150ml IV ONE (21:45)
[2020-10-22] MEDS: IPRATROPIUM BROMIDE NEB SOLN 0.02% 2.5 ML VIAL INH SCH ×4 (00:47→19:30)
[2020-10-22] MEDS: LEVALBUTEROL 1.25MG/0.5ML NEB INH SCH ×4 (00:47→19:30)
[2020-10-22] MEDS: PIPERACILLIN/TAZOBACTAM 4.5 GM in DEXTROSE 5% 100 ML IV SCH ×3 (02:10→17:23)
[2020-10-22] MEDS: LORazepam 1 MG TAB PO PRN ×3 (02:15→13:39)
[2020-10-22] MEDS: ACETAMINOPHEN 325 MG TAB PO PRN (05:34)
--- NOTE | 2020-10-22 08:15 | CT Scan Report ---
CT abd pelvis oral and IV con CLINICAL HISTORY: r/o bladder/bowel fistula COMPARISON STUDY: October 12, 2014 TECHNIQUE: A dose lowering technique was utilized adhering to the principles of ALARA. CT DOSE: 1849.30 mGy.cm FINDINGS: Lower chest: Small bilateral pleural effusion. Compressive atelectasis at the left lower lung. Consol idative opacity involving right lower lobe and the right middle lobe. Possible pleural thickening wit hin inferior anterior right hemithorax. Mild centrilobular emphysema. Calcifications of aortic wall a re seen. Liver: The contrast-enhanced liver is normal in size, contour, and attenuation. There is no intrahepa tic biliary ductal dilatation. The hepatic veins and portal veins are patent. Gallbladder: Is not seen, possibly surgically absent. Common bile duct is prominent measuring 1.0 cm in diameter. Spleen: Normal in size and attenuation. Pancreas: Unremarkable. Adrenal glands: Unremarkable. Kidneys: No hydronephrosis is seen. Small area of increased attenuation within right renal pelvis could repres ent excretion of the contrast or small nonobstructive calculi. Right kidney is atrophic. Bowel: The small bowel and colon are normal in course and caliber. Appendix is not well seen. Evaluat ion is slightly limited due to motion artifact. Diverticulosis of descending and sigmoid colon is see n without evidence of diverticulitis however evaluation of the lower pelvis is limited due to beam senior rdening artifact from orthopedic hardware within right hip joint. Oral contrast column terminates within loops of small bowel. No oral contrast is seen within loops of large bowel. Peritoneum: There is no intraperitoneal free air or abdominal ascites. Mild presacral fat stranding i s seen. Vasculature: Abdominal aorta is torturous with focal area of fusiform ectasia within its distal infra renal aspect measuring 2.6 cm in diameter. Heavy calcifications of aortic wall are seen. Adenopathy: None. Pelvic viscera: Urinary bladder is fluid-filled. No definite gas collection is seen within the urinar y bladder lumen to suggest fistula. Uterus is not well visualized, possibly surgically absent. Beam h ardening artifact from orthopedic hardware limits evaluation. Skeletal structures: Osteopenia and multilevel degenerative changes of the spine. IMPRESSION: 1. No definite gas collection within the urinary bladder lumen is seen to suggest fistula with bowel loops however evaluation is significantly limited due to beam hardening artifact from orthopedic raimundo dware within right hip. Mild presacral fat stranding is seen suggestive of inflammatory process. 2. Diverticulosis of sigmoid colon. No definite evidence of diverticulitis. 3. Bilateral pleural effusion. Consolidative lesions involving right lower lobe and right middle lob e. Possible pleural thickening. Without prior history of neoplastic process, above-mentioned findings most likely represent pneumonia. Please correlate with clinical presentation of the pulmonary infect ious process. 4. Atrophic right kidney. 5. Atherosclerosis. 6. Calcifications of aortic wall. Ectasia of descending thoracic aorta. 7. Mild emphysema. ACT 112: Negative or not required by law. The above report was generated using voice recognition software. It may contain grammatical, syntax o r spelling errors. Electronically signed by: Laure Corbin DO 10/22/2020 8:14 AM
[2020-10-22 09:25] LABS: BUN Creatinine Ratio 32.2 (10-20); Est GFR (African American) 45.8 ml/min; Est GFR (Non-African American) 39.5 ml/min; Potassium 3.9 mmol/L (3.5-5.1)
[2020-10-22] MEDS: CHOLECALCIFEROL 1,000 UNITS 25 MCG TAB PO SCH (09:40)
[2020-10-22] MEDS: CITALOPRAM 20 MG TAB PO SCH (09:41)
[2020-10-22] MEDS: FLUTICASONE/VILANTEROL 100/25MCG 14 PUFFS/INHALER INH SCH (09:42)
[2020-10-22] MEDS: FERROUS SULFATE 325 MG TAB PO SCH (09:42)
[2020-10-22] MEDS: PANTOprazole 40 MG in SYRINGE 0 ML IV SCH ×2 (09:43→21:49)
[2020-10-22] MEDS: FUROSEMIDE 20 MG TAB PO SCH ×2 (09:44→16:47)
[2020-10-22] MEDS: guaiFENesin 600 MG TABCR PO SCH ×2 (09:44→21:35)
[2020-10-22] MEDS: ADVANCED PROBIOTIC 1250 MG CAPSULE PO SCH ×2 (09:45→09:51)
[2020-10-22] MEDS: HEPARIN SOD 5,000 UNIT/0.5 ML VIAL SQ SCH ×2 (09:45→21:36)
[2020-10-22] MEDS: LIDOCAINE 5% 1 PATCH TD SCH (09:46)
[2020-10-22] MEDS: MULTIVITAMIN TAB PO SCH (09:46)
[2020-10-22] MEDS: UMECLIDINIUM BROMIDE 62.5MCG/BLISTER 7 PUFFS/INHALER INH SCH (09:47)
[2020-10-22] MEDS: METOPROLOL SUCC 25MG EXT REL TAB PO SCH (09:50)
[2020-10-22] MEDS: PREGABALIN 150 MG CAP PO SCH ×3 (09:51→21:35)
[2020-10-22] MEDS: ONDANSETRON 2 MG OD TAB PO PRN (10:40)
[2020-10-22] MEDS: HYDROmorphone HCL 2 MG TAB PO PRN ×3 (10:40→23:39)
--- NOTE | 2020-10-22 13:10 | Hospitalist Progress Note ---
Date of Service October 22, 2020 Assessment & Plan (1) Acute on chronic respiratory failure with hypoxia and hypercapnia: Aspiration pneumonia patient is a 70-year-old female with past medical history of diastolic heart failure, COPD, anxiety, depression, CKD stage III, hypertension, chronic in dwelling Gonzalez catheter and GERD presented to the ED with shortness of breath and acute on chronic anemia. CXR on admission showed cardiomegaly and radiographic evidence of pulmonary vascular congestion with bilateral pleural effusions. Right upper lobe airspace opacities, pneumonia versus asymmetric edema. CT chest showed multifocal airspace consolidation is seen throughout both lungs. The appearance is typical for pneumonia/aspiration pneumonitis. Small to moderate pleural effusions. Patient is chronically on 2 L of nasal cannula due to COPD On admission was on 3 to 4 L in the hospital however overnight her oxygen requirement increased significantly, to 10 L (10/15) ABG -pH 7.36, PCO2 70, PO2 60, bicarb 39 Repeat CXR on 10/21 showed mild interval improvement/redistribution of bilateral pleural effusion. Unchanged opacities within bilateral lungs which could represent pneumonia. Antibiotics started by special procedures technologist/ertapenem, then switched to cefepime to cover for possible Pseudomonas , added flagyl for anaerobic coverage Also started on vancomycin, obtained MRSA nasal swab - negative Discussed linezolid, however due to patient's medication such as Celexa or nortriptyline, linezolid is contraindicated Guaifenesin, flutter valve and incentive spirometry started Pulmonary medicine consulted, recommend CT chest without contrast, which was ordered MRSA nasal swab negative, Vancomycin was discontinued Switch cefepime and flagyl to zosyn. Cont. to monitor closely resp. status and oxygen requirements which seem to fluctuate between 3 and 7L. Encourage flutter valve, IS. Will consider to transition to PO Augmentin (2) COPD (chronic obstructive pulmonary disease): - cont. home medications and as above (3) Acute on chronic diastolic CHF (congestive heart failure): (4) Elevated troponin: (5) Congestive heart failure: On admission - Chest x-ray with some pulmonary vascular congestion and some right upper lobe airspace opacities patient denied any cough, fever and absence of any leukocytosis. proBNP of 11,000 on admission. Cardiac enzymes were not concerning. Does use 2-3 L of nasal cannula at baseline, on 4 L of nasal cannula on 10/14 Continued with IV Lasix 40 mg twice daily. Continue to monitor ins and outs along with daily weights. Echo obtained, no change compared to previous study in August 2020. Normal LV systolic function without regional wall motion abnormality, EF 60 to 65%. Cardiology consulted - as patient also complained of chest pain. Chest pain seems to be musculoskeletal in origin. Patient did not appear fluid overload and it was recommended that IV Lasix is stopped and patient is restarted on her home p.o. Lasix. We will continue to closely monitor After aspiration event CT chest obtained, which showed consolidation and also pl. effusions, cont. w/ IV lasix and albumin , as above (6) GERD (gastroesophageal reflux disease): (7) Anemia: GI bleed H. pylori Acute on chronic blood loss anemia - seen by GI at [facility] and also here -At [place] presented with with coffee-ground emesis on arrival -At [place] she underwent EGD (09/22/20), which showed gastritis and small gastric ulcer with no active bleeding. She was found to have H. pylori, and was treated. She finished treatment on October 07 -She is supposed to have a follow-up EGD in 8 weeks to assess ulcer healing (w/ [place] [facility]) -[facility] [place] [facility] - continue PPI, trend H&H, transfuse as needed, follow up w/ [place] providers -Patient was transfused in [place], and she also obtained 2 units of PRBCs here on admission Hgb stable 9.2 (10/20) Monitor H&H, cont. to closely monitor, may require another blood transfusion given her cardiac hx (8) Right femoral fracture: -In [place] underwent right femur removal of hardware. Revision ORIF of right femur. Wound debridement and closure. Placement of antibiotic delivery device. On September 24, 2020, by . -Postop plan at that time was patient will be weightbearing as tolerated on her right lower extremity. She will begin DVT prophylaxis starting the night of postoperative day 0. Orthopedic infectious disease will provide recommendations for antibiotics postoperatively. Will obtain final x-rays of her right femur. Per hospitalist discharge summary, patient was discharged to [facility] -Intraoperative cultures grew 1+ E. faecium and few Staph aureus resistant to oxacillin. Ortho ID was following and recommended daptomycin 900 mg IV daily from September 25 to November 05, 2020. With follow-up CPK weekly, weightbearing of the right lower extremity as tolerated. PICC line was placed for 6 weeks of antibiotics. Following 6 weeks of IV antibiotics, plan will be to indefinitely suppressed with doxycycline monohydrate 100 mg p.o. twice daily due to the presence of extensive hardware in the limb. Lab results to be faxed to ID office at , outpatient follow-up with Ortho ID (Daptomycin dose was confirmed between Ortho ID in [place] and pharmacist at [facility]) -DVT prophylaxis achieved with Lovenox 40 twice daily for 3 weeks, end date October 14 -Per discharge summary, patient supposed to follow-up with orthopedics, Dr. Kaba, on October 14 - will reschedule follow up -[place] [facility] - can be contacted at -On current admission, R leg - several incisions with sutures in place, one higher up on the thigh another one lateral to the knee -wound care was consulted as well as orthopedics given her extensive history and poorly healing wounds (9) Morbid obesity: - needs counselling (10) Weakness: (11) Depression: (12) Anxiety: - cont home medications - ativan decreased as per nursing staff pt becomes very somnolent w/ meds (13) History of pulmonary embolism: (14) CKD (chronic kidney disease) stage 3, GFR 30-59 ml/min: - cont to monitor renal function -Try to avoid NSAIDs/ nephrotoxic agents (15) Hypertension: (16) Hyperlipidemia: - monitor BP, cont. home meds (17) Chronic indwelling Gonzalez catheter: -Patient was having loose stools after requiring enema and disimpaction for constipation -Recommend to exchange Gonzalez catheter as soon as stools controlled Admission and Anticipated Discharge Date Admission Date: October 13, 2020 Subjective Pt was seen and examined for follow up of acute on chronic respiratory failure Lying in bed with no acute distress Pt said that she feels bloating She said that anything she just eat or drink make her fell full Nurse said that her diarrhea improves and no stool noted during straight cath Currently denies any chest pain, palpitation, dizziness and fever Review of Systems Review of Systems: All systems reviewed & are unremarkable except as noted in Subjective Physical Exam Physical Exam: General- No acute distress Head- atraumatic Eyes- PERRL, EOMI, ENT- oropharynx clear Neck- supple, no JVD Lungs- clear to auscultation Heart- regular rhythm; no murmur Abdomen- normal bowel sounds, soft, nontender Extremities- no calf tenderness, moves extremities Neuro- alert, oriented x 3; PERRL, EOMI; no facial palsy; no dysarthria Skin- warm & dry Results & Data Results & [facility] ([facility]) Vital Signs (Past 12 Hours) Vital Signs Temp Pulse Pulse Pulse Resp BP Pulse Ox 10/22/20 11:21 36.6 C 84 20 135/67 95 10/22/20 10:54 80 10/22/20 07:39 79 18 92 10/22/20 07:32 37.4 C 71 18 90/51 L 94 10/22/20 04:07 38.1 C H 88 20 117/56 L 92 (1) Congestive heart failure Heart failure chronicity: acute Heart failure type: unspecified Qualified Code(s): I50.9 - Heart failure, unspecified (2) Anemia Anemia type: unspecified type Qualified Code(s): D64.9 - Anemia, unspecified (3) COPD (chronic obstructive pulmonary disease) COPD type: unspecified COPD Qualified Code(s): J44.9 - Chronic obstructive pulmonary disease, unspecified
--- NOTE | 2020-10-22 13:39 | Electrocardiogram Report ---
Test Reason : Blood Pressure : / mmHG Vent. Rate : 079 BPM Atrial Rate : 079 BPM P-R Int : 164 ms QRS Dur : 092 ms QT Int : 372 ms P-R-T Axes : 047 039 049 degrees QTc Int : 426 ms Sinus rhythm with occasional Premature ventricular complexes Otherwise normal ECG When compared with ECG of 14-OCT-2020 06:43, Premature ventricular complexes are now Present Confirmed by Sergio Obrien ([id number]) on 10/22/2020 1:38:49 PM Referred By: [facility] Confirmed By:Sergio Obrien
[2020-10-22] MEDS: ALUMINUM/MAGNESIUM SUSP 30 ML UDC PO PRN (13:40)
[2020-10-22] MEDS: DAPTOmycin 900 MG in SYRINGE 0 ML IV SCH (13:40)
[2020-10-22] MEDS: ATORVASTATIN 20 MG TAB PO SCH (21:35)
[2020-10-22] MEDS: AMITRIPTYLINE HCL 25 MG TAB PO SCH (21:35)
[2020-10-22] MEDS: traZODone HCL 50 MG TAB PO SCH (21:35)
[2020-10-22] MEDS: MONTELUKAST SODIUM 10 MG TABLET PO SCH (21:35)
[2020-10-23] MEDS: LORazepam 1 MG TAB PO PRN ×5 (00:17→22:09)
[2020-10-23] MEDS: IPRATROPIUM BROMIDE NEB SOLN 0.02% 2.5 ML VIAL INH SCH ×4 (00:52→19:44)
[2020-10-23] MEDS: LEVALBUTEROL 1.25MG/0.5ML NEB INH SCH ×4 (00:52→19:44)
[2020-10-23] MEDS: PIPERACILLIN/TAZOBACTAM 4.5 GM in DEXTROSE 5% 100 ML IV SCH ×2 (02:19→09:04)
[2020-10-23] MEDS: ACETAMINOPHEN 325 MG TAB PO PRN ×3 (06:24→22:09)
[2020-10-23] MEDS: PREGABALIN 150 MG CAP PO SCH ×3 (08:47→20:42)
[2020-10-23] MEDS: CHOLECALCIFEROL 1,000 UNITS 25 MCG TAB PO SCH (08:50)
[2020-10-23] MEDS: CITALOPRAM 20 MG TAB PO SCH (08:51)
[2020-10-23] MEDS: FERROUS SULFATE 325 MG TAB PO SCH (08:51)
[2020-10-23] MEDS: guaiFENesin 600 MG TABCR PO SCH ×2 (08:52→20:46)
[2020-10-23] MEDS: FLUTICASONE/VILANTEROL 100/25MCG 14 PUFFS/INHALER INH SCH (08:52)
[2020-10-23] MEDS: FUROSEMIDE 20 MG TAB PO SCH ×2 (08:52→16:56)
[2020-10-23] MEDS: HEPARIN SOD 5,000 UNIT/0.5 ML VIAL SQ SCH ×2 (08:53→20:46)
[2020-10-23] MEDS: ADVANCED PROBIOTIC 1250 MG CAPSULE PO SCH ×2 (08:53)
[2020-10-23] MEDS: LIDOCAINE 5% 1 PATCH TD SCH (08:54)
[2020-10-23] MEDS: PANTOprazole 40 MG in SYRINGE 0 ML IV SCH ×2 (08:56→20:51)
[2020-10-23] MEDS: METOPROLOL SUCC 25MG EXT REL TAB PO SCH (08:56)
[2020-10-23] MEDS: MULTIVITAMIN TAB PO SCH (08:56)
[2020-10-23] MEDS: UMECLIDINIUM BROMIDE 62.5MCG/BLISTER 7 PUFFS/INHALER INH SCH (08:57)
[2020-10-23] MEDS: HYDROmorphone HCL 2 MG TAB PO PRN (09:57)
[2020-10-23] MEDS: ALUMINUM/MAGNESIUM SUSP 30 ML UDC PO PRN (09:57)
[2020-10-23 10:11] LABS: Hematocrit (blood only) 31.1 % (37-47); Hemoglobin 9.4 g/dL (12.0-16.0); Mean Corpuscular Hemoglobin 29.4 pg (25-34); Mean Corpuscular Hgb Conc 30.2 g/dL (32-36); Mean Corpuscular Volume 97.2 fL (80-100); Mean Platelet Volume 10.4 fL (7.4-10.4); Platelet Count 286 K/uL (130-400); RDW Coefficient of Variation 15.5 % (11.5-14.5); White Blood Count 14.84 K/uL (4.8-10.8)
[2020-10-23 10:34] LABS: BUN Creatinine Ratio 23.7 (10-20); Calcium 9.1 mg/dl (8.5-10.1); Creatinine Clr Calc Pharmacy 32.5 ml/min; Est GFR (African American) 31.2 ml/min; Est GFR (Non-African American) 26.9 ml/min; Potassium 4.1 mmol/L (3.5-5.1)
[2020-10-23] MEDS: DAPTOmycin 900 MG in SYRINGE 0 ML IV SCH (12:55)
--- NOTE | 2020-10-23 19:55 | Hospitalist Progress Note ---
Date of Service October 23, 2020 Assessment & Plan (1) Acute on chronic respiratory failure with hypoxia and hypercapnia: Aspiration pneumonia patient is a 70-year-old female with past medical history of diastolic heart failure, COPD, anxiety, depression, CKD stage III, hypertension, chronic in dwelling Gonzalez catheter and GERD presented to the ED with shortness of breath and acute on chronic anemia. CXR on admission showed cardiomegaly and radiographic evidence of pulmonary vascular congestion with bilateral pleural effusions. Right upper lobe airspace opacities, pneumonia versus asymmetric edema. CT chest showed multifocal airspace consolidation is seen throughout both lungs. The appearance is typical for pneumonia/aspiration pneumonitis. Small to moderate pleural effusions. Patient is chronically on 2 L of nasal cannula due to COPD On admission was on 3 to 4 L in the hospital however overnight her oxygen requirement increased significantly, to 10 L (10/15) ABG -pH 7.36, PCO2 70, PO2 60, bicarb 39 Repeat CXR on 10/21 showed mild interval improvement/redistribution of bilateral pleural effusion. Unchanged opacities within bilateral lungs which could represent pneumonia. Antibiotics started by patient care representative/ertapenem, then switched to cefepime to cover for possible Pseudomonas , added flagyl for anaerobic coverage Also started on vancomycin, obtained MRSA nasal swab - negative Discussed linezolid, however due to patient's medication such as Celexa or nortriptyline, linezolid is contraindicated Guaifenesin, flutter valve and incentive spirometry started Pulmonary medicine consulted, recommend CT chest without contrast, which was ordered MRSA nasal swab negative, Vancomycin was discontinued Switch cefepime and flagyl to zosyn. Cont. to monitor closely resp. status and oxygen requirements which seem to fluctuate between 3 and 7L. Encourage flutter valve, IS. Repeat CXR today showed no change in the diffuse interstitial thickening and right lung airspace opacities. Will add PO Augmentin and continue neb treatment and oxygen supplement (2) COPD (chronic obstructive pulmonary disease): - cont. home medications and as above (3) Acute on chronic diastolic CHF (congestive heart failure): (4) Elevated troponin: (5) Congestive heart failure: On admission - Chest x-ray with some pulmonary vascular congestion and some right upper lobe airspace opacities patient denied any cough, fever and absence of any leukocytosis. proBNP of 11,000 on admission. Cardiac enzymes were not concerning. Does use 2-3 L of nasal cannula at baseline, on 4 L of nasal cannula on 10/14 Continued with IV Lasix 40 mg twice daily. Continue to monitor ins and outs along with daily weights. Echo obtained, no change compared to previous study in August 2020. Normal LV systolic function without regional wall motion abnormality, EF 60 to 65%. Cardiology consulted - as patient also complained of chest pain. Chest pain seems to be musculoskeletal in origin. Patient did not appear fluid overload and it was recommended that IV Lasix is stopped and patient is restarted on her home p.o. Lasix. We will continue to closely monitor After aspiration event CT chest obtained, which showed consolidation and also pl. effusions, cont. w/ IV lasix and albumin , as above 10/23/20 Will hold lasix due to elevate creatine to 1.8 (6) GERD (gastroesophageal reflux disease): (7) Anemia: GI bleed H. pylori Acute on chronic blood loss anemia - seen by GI at [facility] and also here -At [place] presented with with coffee-ground emesis on arrival -At [place] she underwent EGD (09/22/20), which showed gastritis and small gastric ulcer with no active bleeding. She was found to have H. pylori, and was treated. She finished treatment on October 07 -She is supposed to have a follow-up EGD in 8 weeks to assess ulcer healing (w/ [place] [facility]) -Per [facility] - continue PPI, trend H&H, transfuse as needed, follow up w/ [place] providers -Patient was transfused in [place], and she also obtained 2 units of PRBCs here on admission Hgb stable 9.2 (10/20) Monitor H&H, cont. to closely monitor, may require another blood transfusion given her cardiac hx Hgb stable at 9.4 today Fever pt had a fever overnight switch Augmentin back to zosyn obtain blood cultx, CXR, UA/U cultx -pt has pna and recent orthopedic procedure however she has been doing well -she has chronic Gonzalez - concern for UA -loose stools - obtain c. diff -Gonzalez removed - per nursing staff tip of catheter w/ stool -continue with straight cath - obtain CT abdomen/pelvis to eval for possible bladder/bowel fistula Will add Augementin (8) Right femoral fracture: -In [place] underwent right femur removal of hardware. Revision ORIF of right femur. Wound debridement and closure. Placement of antibiotic delivery device. On September 24, 2020, by . -Postop plan at that time was patient will be weightbearing as tolerated on her right lower extremity. She will begin DVT prophylaxis starting the night of postoperative day 0. Orthopedic infectious disease will provide recommendations for antibiotics postoperatively. Will obtain final x-rays of her right femur. Per hospitalist discharge summary, patient was [facility] -Intraoperative cultures grew 1+ E. faecium and few Staph aureus resistant to oxacillin. Ortho ID was following and recommended daptomycin 900 mg IV daily from September 25 to November 05, 2020. With follow-up CPK weekly, weightbearing of the right lower extremity as tolerated. PICC line was placed for 6 weeks of antibiotics. Following 6 weeks of IV antibiotics, plan will be to indefinitely suppressed with doxycycline monohydrate 100 mg p.o. twice daily due to the presence of extensive hardware in the limb. Lab results to be faxed to ID office at , outpatient follow-up with Ortho ID (Daptomycin dose was confirmed between Ortho ID in [place] and pharmacist at [facility]) -DVT prophylaxis achieved with Lovenox 40 twice daily for 3 weeks, end date October 14 -Per discharge summary, patient supposed to follow-up with orthopedics, Dr. Kaba, on October 14 - will reschedule follow up -[place] [facility] - can be contacted at -On current admission, R leg - several incisions with sutures in place, one higher up on the thigh another one lateral to the knee -wound care was consulted as well as orthopedics given her extensive history and poorly healing wounds (9) Morbid obesity: - needs counselling (10) Weakness: (11) Depression: (12) Anxiety: - cont home medications - ativan decreased as per nursing staff pt becomes very somnolent w/ meds (13) History of pulmonary embolism: (14) CKD (chronic kidney disease) stage 3, GFR 30-59 ml/min: BLANCO on CKD 3 Possible related to contrast and Lasix CT abd/pelvis showed no hydronephrosis Creatinine 1.8 today Will hold Lasix today Continue monitor BMP (15) Hypertension: (16) Hyperlipidemia: - monitor BP, cont. home meds (17) Chronic indwelling Gonzalez catheter: -Patient was having loose stools after requiring enema and disimpaction for constipation - now has fever (10/21), Gonzalez removed and noted stool at the tip of catheter -UA, U cultx obtained - CT abdomen/pelvis showed no bladder/bowel fistula Admission and Anticipated Discharge Date Admission Date: October 13, 2020 Subjective Pt was seen and examined for follow up of acute on chronic respiratory failure Lying in bed with no acute distress Pt said that she does not feel any better She said that she continues to spike a fever She continues to have difficulty to breath and having a lot of back pain Currently denies any chest pain, palpitation, dizziness Review of Systems Review of Systems: All systems reviewed & are unremarkable except as noted in Subjective Physical Exam Physical Exam: General- No acute distress Head- atraumatic Eyes- PERRL, EOMI, ENT- oropharynx clear Neck- supple, no JVD Lungs- diminished breath sound Heart- regular rhythm; no murmur Abdomen- normal bowel sounds, soft, nontender Extremities- no calf tenderness, moves extremities Neuro- alert, oriented x 3; PERRL, EOMI; no facial palsy; no dysarthria Skin- warm & dry Results & Data Results & Data ([facility]) Vital Signs (Past 12 Hours) Vital Signs Temp Pulse Pulse Pulse Resp BP Pulse Ox 10/23/20 19:53 38.3 C H 119 H 20 117/62 89 L 10/23/20 19:44 85 16 87 L 10/23/20 15:45 83 10/23/20 15:29 36.4 C L 85 20 156/61 H 94 10/23/20 13:18 85 18 94 10/23/20 11:19 37.1 C 83 20 146/53 H 96 (1) Congestive heart failure Heart failure chronicity: acute Heart failure type: unspecified Qualified Code(s): I50.9 - Heart failure, unspecified (2) Anemia Anemia type: unspecified type Qualified Code(s): D64.9 - Anemia, unspecified (3) COPD (chronic obstructive pulmonary disease) COPD type: unspecified COPD Qualified Code(s): J44.9 - Chronic obstructive pulmonary disease, unspecified
[2020-10-23] MEDS: AMOXICILLIN/CLAVULANATE 875 MG TAB PO SCH (20:45)
[2020-10-23] MEDS: MONTELUKAST SODIUM 10 MG TABLET PO SCH (20:45)
[2020-10-23] MEDS: ATORVASTATIN 20 MG TAB PO SCH (20:45)
[2020-10-23] MEDS: AMITRIPTYLINE HCL 25 MG TAB PO SCH (20:48)
--- NOTE | 2020-10-23 20:56 | XRay Report ---
XR chest 1V portable HISTORY: Shortness of breath. COMPARISON: Chest 10/21/2020. FINDINGS: A right PICC terminates in the distal SVC. No pneumothorax. There are small bilateral pleur al effusions. Diffuse interstitial thickening and patchy airspace opacities within the right lung per sist. Rotated study. The heart remains mildly enlarged. IMPRESSION: 1. No change in the diffuse interstitial thickening and right lung airspace opacities. This favors a pneumonia. Asymmetric pulmonary edema could also have a similar appearance. 2. Bilateral pleural effusions persist. ACT 112: Negative or not required by law. Electronically signed by: Rob Hallman M.D. 10/23/2020 8:55 PM
[2020-10-23] MEDS: traZODone HCL 50 MG TAB PO SCH (22:09)
[2020-10-24] MEDS: LEVALBUTEROL 1.25MG/0.5ML NEB INH SCH ×4 (00:46→19:17)
[2020-10-24] MEDS: IPRATROPIUM BROMIDE NEB SOLN 0.02% 2.5 ML VIAL INH SCH ×4 (00:46→19:17)
[2020-10-24] MEDS: HYDROmorphone HCL 2 MG TAB PO PRN ×3 (03:35→16:05)
[2020-10-24] MEDS: ACETAMINOPHEN 325 MG TAB PO PRN (05:32)
[2020-10-24] MEDS: LORazepam 1 MG TAB PO PRN ×3 (05:33→20:20)
[2020-10-24 06:10] LABS: Hematocrit (blood only) 28.4 % (37-47); Hemoglobin 8.6 g/dL (12.0-16.0); Mean Corpuscular Hemoglobin 29.4 pg (25-34); Mean Corpuscular Hgb Conc 30.3 g/dL (32-36); Mean Corpuscular Volume 96.9 fL (80-100); Mean Platelet Volume 10.4 fL (7.4-10.4); Platelet Count 259 K/uL (130-400); RDW Coefficient of Variation 15.5 % (11.5-14.5); RDW Standard Deviation 54.7 fL (36.4-46.3); Red Blood Count 2.93 M/uL (4.2-5.4); White Blood Count 12.04 K/uL (4.8-10.8)
[2020-10-24 06:50] LABS: BUN Creatinine Ratio 26.1 (10-20); Calcium 8.9 mg/dl (8.5-10.1); Creatinine Clr Calc Pharmacy 35.9 ml/min; Est GFR (African American) 33.6 ml/min; Potassium 4.2 mmol/L (3.5-5.1)
[2020-10-24] MEDS ORDERED: ACETAMINOPHEN 1,000 MG/100 ML VIAL IV STA (08:14)
--- NOTE | 2020-10-24 08:26 | XRay Report ---
SINGLE VIEW CHEST CLINICAL HISTORY: Dyspnea. FINDINGS: An AP, portable, upright chest radiograph is compared to study dated 10/23/2020 and correlate d with chest CT dated 10/15/2020. The examination is degraded by portable technique and patient rotati on. A right PICC line is unchanged in position. The heart appears mildly enlarged noting atherosclero tic calcification of the thoracic aorta. Emphysematous change is noted. Volume loss in the right lung is similar to previous. There is increasing airspace consolidation throughout the right lung. There are also increasing patchy airspace opacities at the left apex and left lung base. Lowering pleural e ffusions are noted. No pneumothorax is seen. The skeletal structures are osteopenic. The bony thorax is grossly intact. IMPRESSION: 1. Cardiomegaly and emphysema. 2. There is increasing airspace consolidation throughout the right lung, as well as increasing patchy airspace consolidation in the left lung. 3. Layering pleural effusions. ACT 112: Negative or not required by law. Electronically signed by: Adiel Brantley M.D. 10/24/2020 8:25 AM
[2020-10-24] MEDS ORDERED: FUROSEMIDE 20 MG in SYRINGE 0 ML IV ONE ×3 (08:30→14:30)
[2020-10-24] MEDS: CITALOPRAM 20 MG TAB PO SCH (08:31)
[2020-10-24] MEDS: AMOXICILLIN/CLAVULANATE 875 MG TAB PO SCH (08:31)
--- NOTE | 2020-10-24 08:31 | Electrocardiogram Report ---
Test Reason : Blood Pressure : / mmHG Vent. Rate : 096 BPM Atrial Rate : 096 BPM P-R Int : 142 ms QRS Dur : 090 ms QT Int : 322 ms P-R-T Axes : 043 035 052 degrees QTc Int : 406 ms Normal sinus rhythm Normal ECG When compared with ECG of 22-OCT-2020 11:05, Premature ventricular complexes are no longer Present Confirmed by Sergio Obrien ([id number]) on 10/24/2020 8:30:54 AM Referred By: [facility] Confirmed By:Sergio Obrien
[2020-10-24] MEDS: ADVANCED PROBIOTIC 1250 MG CAPSULE PO SCH ×2 (08:32→08:36)
[2020-10-24] MEDS: ONDANSETRON 2 MG OD TAB PO PRN (08:33)
[2020-10-24] MEDS: CHOLECALCIFEROL 1,000 UNITS 25 MCG TAB PO SCH (08:34)
[2020-10-24] MEDS ORDERED: PIPERACILL/TAZOBAC CONSULT ACTIVE PRN (08:34)
[2020-10-24] MEDS: FERROUS SULFATE 325 MG TAB PO SCH (08:34)
[2020-10-24] MEDS: HEPARIN SOD 5,000 UNIT/0.5 ML VIAL SQ SCH ×2 (08:35→20:17)
[2020-10-24] MEDS: guaiFENesin 600 MG TABCR PO SCH ×2 (08:35→20:18)
[2020-10-24 08:36] LABS: Magnesium 2.4 mg/dl (1.8-2.4); Troponin I 0.056 ng/ml (0-0.045)
[2020-10-24] MEDS: LIDOCAINE 5% 1 PATCH TD SCH (08:37)
[2020-10-24] MEDS: METOPROLOL SUCC 25MG EXT REL TAB PO SCH (08:38)
[2020-10-24] MEDS: MULTIVITAMIN TAB PO SCH (08:39)
[2020-10-24] MEDS: FLUTICASONE/VILANTEROL 100/25MCG 14 PUFFS/INHALER INH SCH (08:45)
[2020-10-24] MEDS ORDERED: PIPERACILLIN/TAZOBACTAM 3.375 GM in DEXTROSE 5% 100 ML IV SCH (08:45)
[2020-10-24] MEDS: UMECLIDINIUM BROMIDE 62.5MCG/BLISTER 7 PUFFS/INHALER INH SCH (08:46)
[2020-10-24] MEDS ORDERED: PIPERACILLIN/TAZOBACTAM 4.5 GM in DEXTROSE 5% 100 ML IV ONE (09:00)
[2020-10-24] MEDS: PREGABALIN 150 MG CAP PO SCH ×3 (09:00→20:20)
[2020-10-24] MEDS: PANTOprazole 40 MG in SYRINGE 0 ML IV SCH ×2 (09:49→20:18)
--- NOTE | 2020-10-24 10:18 | CT Scan Report ---
CT SCAN OF THE CHEST WITHOUT IV CONTRAST CLINICAL HISTORY: Dyspnea. COMPARISON STUDY: Chest x-ray dated 10/24/2020. Chest CT scans dated 10/15/2020, 10/07/2018, and 07/05/19. TECHNIQUE: CT scan of the thorax was performed from the thoracic inlet to the upper abdomen. Images are reviewed in the axial, sagittal, and coronal planes. IV contrast was not administered for this ex amination as per the referring clinician. A dose lowering technique was utilized adhering to the [facility] of [place]. CT DOSE: 996.96 mGy.cm FINDINGS: Thyroid: Imaged portions of the thyroid gland are normal in size and attenuation. Thoracic aorta: There is atherosclerotic calcification of the thoracic aorta, which is normal in aba chelle and demonstrates standard 3-vessel arch anatomy. Heart: A right PICC line is in place. The heart is mildly enlarged and without pericardial effusion. The coronary arteries and aortic valve leaflets are densely calcified. There is diminished attenuatio n of the cardiac blood pool as compared to the myocardium suggesting anemia. The pulmonary trunk is d ilated, measuring 3.8 cm in transverse diameter. This suggests pulmonary artery hypertension. Lungs and pleural spaces: Emphysematous change is noted. The trachea and central airways are clear. T here minimal layering secretions are noted in the trachea. Debris is also seen throughout the right l ower lobe airways. Multifocal airspace consolidation is again seen throughout both lungs, most conflu ent in the right lung. Airspace consolidation in the right upper lung has increased as compared to . Small to moderate pleural effusions are unchanged. A 4 mm left lower lobe pulmonary nodule i s seen on image #180 and a 4 mm lingular pulmonary nodule is seen on image #161. A 7 mm right middle lobe pulmonary nodule image 191, a 4 mm pulmonary nodule in the left upper lobe on image #145, and a 4 mm right middle lobe pulmonary nodule is seen on image #155. These have been present dating back to 2019. Mediastinum: There are mildly enlarged mediastinal lymph nodes. A prevascular node on image #104 krystyna ures 12 mm in short axis. Circumferential wall thickening is suggested in the esophagus. Esophageal d iverticulum containing enteric contrast is suggested on image #153. Cristina: Not well assessed without IV contrast. Axillae: There is no axillary lymphadenopathy. Upper abdomen: There is a small hiatal hernia. Diverticulosis is noted in the partially imaged left c olon. Partially visualized upper abdominal viscera is otherwise grossly unremarkable. Skeletal structures: The skeletal structures are osteopenic. No lytic or blastic bony lesions are see n. IMPRESSION: 1. Emphysema. 2. Multifocal airspace consolidation is again seen throughout both lungs. The appearance is typical f or pneumonia/aspiration pneumonitis, and this has increased throughout the right upper lung as compar ed to 10/15/2020. Clinical correlation will be required and radiographic follow-up to resolution is re commended. 3. Small to moderate pleural effusions are unchanged. 4. Mildly enlarged mediastinal lymph nodes are likely reactive. 5. The esophagus appears circumferentially thick walled. Correlate clinically for evidence of esophag itis. This can be further assessed with endoscopy if clinically warranted. 6. Scattered subcentimeter pulmonary nodules have not significantly changed as compared to 10/07/2018. 7. A contrast-containing diverticulum of the mid esophagus is noted. ACT 112: Negative or not required by law. Electronically signed by: Adiel Brantley M.D. 10/24/2020 10:17 AM
[2020-10-24] MEDS: DAPTOmycin 900 MG in SYRINGE 0 ML IV SCH (12:58)
[2020-10-24] MEDS: PIPERACILLIN/TAZOBACTAM 4.5 GM in DEXTROSE 5% 100 ML IV SCH ×2 (12:59→22:34)
[2020-10-24] MEDS ORDERED: methylPREDNISolone 40 MG in SYRINGE 0 ML IV ONE ×2 (14:15→14:30)
--- NOTE | 2020-10-24 14:19 | Pulmonology Progress Note ---
Date of Service October 24, 2020 Assessment & Plan (1) Aspiration pneumonia: 70-year-old female with a past medical history of CKD stage III, grade 2 diastolic dysfunction noted on echo, COPD and a history of GERD who was hospitalized for severe aspiration pneumonia. Aspiration pneumonia: She is currently on Zosyn. I would recommend 7 days total of antibiotics for pneumonia. She does appear to be wheezing and also appears to be volume overloaded. She has a long history of tobacco abuse. Unclear whether the wheezing is secondary to pulmonary edema and/or a COPD exacerbation. I discussed with the hospitalist and recommended an additional 20 mg of IV Lasix now and 40 mg of IV Solu-Medrol. I would recommend transitioning to 40 mg of prednisone starting tomorrow and completing a course of steroids for 5 days total. Lasix and prednisone has been ordered by me. Recommend aspiration precautions and a speech therapy evaluation. Hypoxemic respiratory failure: Recommend titrating her oxygen saturations to maintain 92 to 94%. Acute on chronic diastolic heart failure: Diuretics as above. Cardiology following. Chest pain: Unclear etiology. Possible musculoskeletal pain. It is reproducible on touch and palpation. GERD and tightness from COPD may be playing a role. History of tobacco abuse: She appears to be wheezing and may be in a COPD exacerbation. Emphysema noted on the CT chest. Pulmonary function testing can be considered as an outpatient. Continue Breo Ellipta and Incruse Ellipta. (2) Acute on chronic respiratory failure with hypoxia and hypercapnia: (3) Acute on chronic diastolic CHF (congestive heart failure): (4) COPD (chronic obstructive pulmonary disease): COPD type: unspecified COPD Qualified Code(s): J44.9 - Chronic obstructive pulmonary disease, unspecified (5) Chest pain: (6) Wheezing: Admission and Anticipated Discharge Date Admission Date: October 13, 2020 Subjective Patient seen and examined this afternoon. She is complaining of chest pain that is deep and in the middle of her chest. EKG has been unremarkable x2 today. Th ere is a code purple earlier in the morning due to hypoxia which improved with supplemental oxygen. She underwent a CT chest which demonstrated diffuse infiltrates greater on the right than left. Small bilateral effusions were seen as well. She had low-grade temperatures overnight. She denies any nausea or vomiting at present. Her appetite has been very poor. Review of Systems Review of Systems: All systems reviewed & are unremarkable except as noted in HPI & below Physical Exam Constitutional: + obese; no acute distress Eyes: PERRL, conjunctivae normal, anicteric sclerae Neck: trachea midline, no thyromegaly Respiratory: Diffuse rhonchi and wheezes noted bilaterally in the anterior chest. Diminished lung sounds. Cardiovascular: Rate/Rhythm: regular rate and regular rhythm Heart Sounds: normal S1 and normal S2; no murmur Extremities: + edema Gastrointestinal (Abdomen): normal bowel sounds, soft, nontender, no hepatosplenomegaly Musculoskeletal: no cyanosis or clubbing, extremities motor strength 5/5 Skin: no rashes, warm and dry Neurologic: PERRL, EOMI, accommodation nl, no face palsy, no dysarthria Psychiatric: A+Ox3, euthymic affect Results & Data Results & Data ([facility]) Vital Signs (Past 12 Hours) Vital Signs Temp Pulse Pulse Resp BP Pulse Ox 10/24/20 13:29 78 16 96 10/24/20 11:13 98.2 F 78 20 127/65 92 10/24/20 07:44 85 20 126/62 91 10/24/20 07:10 83 20 92 10/24/20 04:10 100.0 F H 122 H 20 180/70 H 90 Vital signs, labs and imaging personally reviewed PG Care Time/CCT Total # of Minutes Spent Total Time Spent with Patient: Total time spent is greater than 50% in coordination of care (as documented) at patient's floor/unit and/or counseling patient: Coding Level of Care Code 47602 Subseq Hosp Care Lvl 3 Diagnoses Aspiration pneumonia J69.0 Acute on chronic respiratory failure with hypoxia and hypercapnia J96.21; J96.22 Acute on chronic diastolic CHF (congestive heart failure) I50.33 COPD (chronic obstructive pulmonary disease) J44.9 COPD type: unspecified COPD Chest pain R07.9 Wheezing R06.2
--- NOTE | 2020-10-24 16:00 | Electrocardiogram Report ---
Test Reason : Blood Pressure : / mmHG Vent. Rate : 078 BPM Atrial Rate : 078 BPM P-R Int : 156 ms QRS Dur : 092 ms QT Int : 370 ms P-R-T Axes : 042 042 054 degrees QTc Int : 421 ms Poor data quality, interpretation may be adversely affected Normal sinus rhythm with sinus arrhythmia Early repolarization Normal ECG When compared with ECG of 24-OCT-2020 07:48, No significant change was found Confirmed by Sergio Obrien ([id number]) on 10/24/2020 4:00:39 PM Referred By: [facility] Confirmed By:Sergio Obrien
[2020-10-24] MEDS ORDERED: MoRPHine SULFATE 2 MG/ML CARP IV PRN (18:32)
[2020-10-24] MEDS: SODIUM CHLOR 7% 4 ML NEB NEB SCH (19:17)
--- NOTE | 2020-10-24 19:18 | Hospitalist Progress Note ---
Date of Service October 24, 2020 Assessment & Plan (1) Acute on chronic respiratory failure with hypoxia and hypercapnia: Aspiration pneumonia patient is a 70-year-old female with past medical history of diastolic heart failure, COPD, anxiety, depression, CKD stage III, hypertension, chronic in dwelling Gonzalez catheter and GERD presented to the ED with shortness of breath and acute on chronic anemia. CXR on admission showed cardiomegaly and radiographic evidence of pulmonary vascular congestion with bilateral pleural effusions. Right upper lobe airspace opacities, pneumonia versus asymmetric edema. CT chest showed multifocal airspace consolidation is seen throughout both lungs. The appearance is typical for pneumonia/aspiration pneumonitis. Small to moderate pleural effusions. Patient is chronically on 2 L of nasal cannula due to COPD On admission was on 3 to 4 L in the hospital however overnight her oxygen requirement increased significantly, to 10 L (10/15) ABG -pH 7.36, PCO2 70, PO2 60, bicarb 39 Repeat CXR on 10/21 showed mild interval improvement/redistribution of bilateral pleural effusion. Unchanged opacities within bilateral lungs which could represent pneumonia. Antibiotics started by disability case manager/ertapenem, then switched to cefepime to cover for possible Pseudomonas , added flagyl for anaerobic coverage Also started on vancomycin, obtained MRSA nasal swab - negative Discussed linezolid, however due to patient's medication such as Celexa or nortriptyline, linezolid is contraindicated Guaifenesin, flutter valve and incentive spirometry started Pulmonary medicine consulted, recommend CT chest without contrast, which was ordered MRSA nasal swab negative, Vancomycin was discontinued Switch cefepime and flagyl to zosyn. Cont. to monitor closely resp. status and oxygen requirements which seem to fluctuate between 3 and 7L. Encourage flutter valve, IS. Repeat CXR today showed no change in the diffuse interstitial thickening and right lung airspace opacities. Will add PO Augmentin and continue neb treatment and oxygen supplement (2) COPD (chronic obstructive pulmonary disease): - cont. home medications and as above (3) Acute on chronic diastolic CHF (congestive heart failure): (4) Elevated troponin: (5) Congestive heart failure: On admission - Chest x-ray with some pulmonary vascular congestion and some right upper lobe airspace opacities patient denied any cough, fever and absence of any leukocytosis. proBNP of 11,000 on admission. Cardiac enzymes were not concerning. Does use 2-3 L of nasal cannula at baseline, on 4 L of nasal cannula on 10/14 Continued with IV Lasix 40 mg twice daily. Continue to monitor ins and outs along with daily weights. Echo obtained, no change compared to previous study in August 2020. Normal LV systolic function without regional wall motion abnormality, EF 60 to 65%. Cardiology consulted - as patient also complained of chest pain. Chest pain seems to be musculoskeletal in origin. Patient did not appear fluid overload and it was recommended that IV Lasix is stopped and patient is restarted on her home p.o. Lasix. We will continue to closely monitor After aspiration event CT chest obtained, which showed consolidation and also pl. effusions, cont. w/ IV lasix and albumin , as above 10/23/20 Will hold lasix due to elevate creatine to 1.8 (6) GERD (gastroesophageal reflux disease): (7) Anemia: GI bleed H. pylori Acute on chronic blood loss anemia - seen by GI at [facility] and also here -At [place] presented with with coffee-ground emesis on arrival -At [place] she underwent EGD (09/22/20), which showed gastritis and small gastric ulcer with no active bleeding. She was found to have H. pylori, and was treated. She finished treatment on October 07 -She is supposed to have a follow-up EGD in 8 weeks to assess ulcer healing (w/ [place] [facility]) -Per [facility] - continue PPI, trend H&H, transfuse as needed, follow up w/ [place] providers -Patient was transfused in [place], and she also obtained 2 units of PRBCs here on admission Hgb stable 9.2 (10/20) Monitor H&H, cont. to closely monitor, may require another blood transfusion given her cardiac hx Hgb stable at 9.4 today Fever pt had a fever overnight switch Augmentin back to zosyn obtain blood cultx, CXR, UA/U cultx -pt has pna and recent orthopedic procedure however she has been doing well -she has chronic Gonzalez - concern for UA -loose stools - obtain c. diff -Gonzalez removed - per nursing staff tip of catheter w/ stool -continue with straight cath - obtain CT abdomen/pelvis to eval for possible bladder/bowel fistula Will add Augementin (8) Right femoral fracture: -In [place] underwent right femur removal of hardware. Revision ORIF of right femur. Wound debridement and closure. Placement of antibiotic delivery device. On September 24, 2020, by . -Postop plan at that time was patient will be weightbearing as tolerated on her right lower extremity. She will begin DVT prophylaxis starting the night of postoperative day 0. Orthopedic infectious disease will provide recommendations for antibiotics postoperatively. Will obtain final x-rays of her right femur. Per hospitalist discharge summary, patient was discharged to [facility] -Intraoperative cultures grew 1+ E. faecium and few Staph aureus resistant to oxacillin. Ortho ID was following and recommended daptomycin 900 mg IV daily from September 25 to November 05, 2020. With follow-up CPK weekly, weightbearing of the right lower extremity as tolerated. PICC line was placed for 6 weeks of antibiotics. Following 6 weeks of IV antibiotics, plan will be to indefinitely suppressed with doxycycline monohydrate 100 mg p.o. twice daily due to the presence of extensive hardware in the limb. Lab results to be faxed to ID office at , outpatient follow-up with Ortho ID (Daptomycin dose was confirmed between Ortho ID in [place] and pharmacist at [facility]) -DVT prophylaxis achieved with Lovenox 40 twice daily for 3 weeks, end date October 14 -Per discharge summary, patient supposed to follow-up with orthopedics, Dr. Kaba, on October 14 - will reschedule follow up -[place] [facility] - can be contacted at -On current admission, R leg - several incisions with sutures in place, one higher up on the thigh another one lateral to the knee -wound care was consulted as well as orthopedics given her extensive history and poorly healing wounds (9) Morbid obesity: - needs counselling (10) Weakness: (11) Depression: (12) Anxiety: - cont home medications - ativan decreased as per nursing staff pt becomes very somnolent w/ meds (13) History of pulmonary embolism: (14) CKD (chronic kidney disease) stage 3, GFR 30-59 ml/min: BLANCO on CKD 3 Possible related to contrast and Lasix CT abd/pelvis showed no hydronephrosis Creatinine 1.8 today Will hold Lasix today Continue monitor BMP (15) Hypertension: (16) Hyperlipidemia: - monitor BP, cont. home meds (17) Chronic indwelling Gonzalez catheter: -Patient was having loose stools after requiring enema and disimpaction for constipation - now has fever (10/21), Gonzalez removed and noted stool at the tip of catheter -UA, U cultx obtained - CT abdomen/pelvis showed no bladder/bowel fistula Admission and Anticipated Discharge Date Admission Date: October 13, 2020 Subjective Pt was seen and examined for follow up of acute on chronic respiratory failure Lying in bed with no acute distress Pt said that she does not feel any better She said that she continues to spike a fever She continues to have difficulty to breath and having a lot of back pain Currently denies any chest pain, palpitation, dizziness Review of Systems Review of Systems: All systems reviewed & are unremarkable except as noted in Subjective Physical Exam Physical Exam: General- No acute distress Head- atraumatic Eyes- PERRL, EOMI, ENT- oropharynx clear Neck- supple, no JVD Lungs- diminished breath sound Heart- regular rhythm; no murmur Abdomen- normal bowel sounds, soft, nontender Extremities- no calf tenderness, moves extremities Neuro- alert, oriented x 3; PERRL, EOMI; no facial palsy; no dysarthria Skin- warm & dry Results & Data Results & Data ([facility]) Vital Signs (Past 12 Hours) Vital Signs Temp Pulse Pulse Pulse Resp BP Pulse Ox 10/24/20 15:29 80 10/24/20 15:10 36.8 C 80 18 131/61 92 10/24/20 13:55 36.8 C 77 20 119/51 L 90 10/24/20 13:29 78 16 96 10/24/20 11:13 36.8 C 78 20 127/65 92 10/24/20 07:44 85 20 126/62 91 (1) Congestive heart failure Heart failure chronicity: acute Heart failure type: unspecified Qualified Code(s): I50.9 - Heart failure, unspecified (2) Anemia Anemia type: unspecified type Qualified Code(s): D64.9 - Anemia, unspecified (3) COPD (chronic obstructive pulmonary disease) COPD type: unspecified COPD Qualified Code(s): J44.9 - Chronic obstructive pulmonary disease, unspecified
[2020-10-24] MEDS: ATORVASTATIN 20 MG TAB PO SCH (20:17)
[2020-10-24] MEDS: AMITRIPTYLINE HCL 25 MG TAB PO SCH (20:18)
[2020-10-24] MEDS: MONTELUKAST SODIUM 10 MG TABLET PO SCH (20:18)
[2020-10-24] MEDS: traZODone HCL 50 MG TAB PO SCH (20:20)
[2020-10-24] MEDS ORDERED: NITROGLYCERIN SL 0.4 MG/TAB TAB SL STA (23:14)
--- NOTE | 2020-10-24 23:49 | Communication Note ---
Date of Service: October 24, 2020 Overnight developments 10/24, 11 PM Patient complaining of pleuritic substernal pain similar to pain in the morning. Some relief with nitroglycerin as per RN. EKG as per my interpretation : Rate 85, NSR, normal axis, no ischemia Troponin 0.059 (from 0.072) PPE : Obese, slightly hard of hearing, uncomfortable, no respiratory distress Pallor, nasal cannula in place Short neck Decreased breath sounds, rhonchi right chest, no anterior chest wall tenderness RRR, no obvious murmurs Minimal LE swelling, no tenderness AP Chest pain with troponin elevation NSTEMI given some relief with nitroglycerin Rule out recurrent PE given pleuritic description PCU transfer Aspirin for CAD prevention IV Heparin Reconsult cardiology in a.m. regarding chest pain LE venous Dopplers rule out DVT (CT angio precluded by kidney dysfunction) 10/25 2 AM Notified by RN of worsening hypoxemia while waiting for PCU room transfer O2 sats 80s on 15 L as per RN. Patent lethargic. VBG pH 7.32, PCO2 79 Chest x-ray as per per my interpretation Congestion; right infiltrate improved from 10/24 x-ray AP Hypoxemic, hypercapnic respiratory failure secondary to COPD exacerbation aspiration pneumonia ongoing treatment with Zosyn Narcotics, neuropsychotropic meds contributory BiPAP Recheck ABG Solu-Medrol Continue Zosyn, nebs RTC Hold neuropsychotropic/narcotic meds for sedation confusion for now Narcan 1 dose (patient received Morphine around 10:30 PM last night) Patient son updated of developments over the phone. Will relay to AM provider.
[2020-10-24] MEDS ORDERED: ALBUT/IPRATROP 3MG/0.5MG NEB 3 ML VIAL NEB STA (23:50)
[2020-10-24] MEDS ORDERED: NITROGLYCERIN SL 0.4 MG/TAB TAB SL PRN (23:51)
[2020-10-25 00:28] LABS: Base Excess VBG 10.9 mEq/L; HCO3 VBG 39 mmol/L; Oxygen Saturation VBG 83.4 %; PCO2 VBG 79 mmHg (38-50); PO2 VBG 48 mmHg; Partial Thromboplastin Ratio 1.1; Partial Thromboplastin Time 29.1 Seconds (21.0-31.0); pH VBG 7.32 (7.36-7.41)
[2020-10-25 00:41] LABS: Albumin Globulin Ratio 0.4 (0.9-2); Albumin Level 1.8 gm/dl (3.4-5.0); BUN Creatinine Ratio 28.4 (10-20); Bilirubin,Total 0.3 mg/dl (0.2-1); Calcium 9.8 mg/dl (8.5-10.1); Creatinine Clr Calc Pharmacy 37.9 ml/min; Est GFR (African American) 35.8 ml/min; Est GFR (Non-African American) 30.9 ml/min; Globulin 4.3 gm/dl (2.5-4.0); Magnesium 2.5 mg/dl (1.8-2.4); Potassium 4.9 mmol/L (3.5-5.1); Total Protein 6.1 gm/dl (6.4-8.2); Troponin I 0.059 ng/ml (0-0.045)
[2020-10-25] MEDS ORDERED: Heparin IV Adult Wt-Based Low-Dose *NO* Bolus Protocol ONE (00:56)
[2020-10-25] MEDS ORDERED: HEPARIN SODIUM/DEXTROSE 25,000 UNITS/500 ML BAG IV SCH (01:00)
[2020-10-25] MEDS ORDERED: ASPIRIN 81 MG ECTAB PO SCH (01:00)
[2020-10-25] MEDS: ACETAMINOPHEN 1,000 MG/100 ML VIAL IV PRN ×2 (01:02→08:53)
[2020-10-25] MEDS ORDERED: HYDROmorphone INJ 0.5 MG/0.5 ML SYR IV PRN (01:04)
[2020-10-25] MEDS: IPRATROPIUM BROMIDE NEB SOLN 0.02% 2.5 ML VIAL INH SCH ×4 (01:17→19:24)
[2020-10-25] MEDS: LEVALBUTEROL 1.25MG/0.5ML NEB INH SCH ×4 (01:17→19:24)
[2020-10-25] MEDS ORDERED: methylPREDNISolone 20 MG in SYRINGE 0 ML IV ONE ×2 (01:45→23:00)
--- NOTE | 2020-10-25 01:47 | Hospitalist Progress Note ---
Date of Service October 24, 2020 Assessment & Plan (1) Acute on chronic respiratory failure with hypoxia and hypercapnia: Aspiration pneumonia patient is a 70-year-old female with past medical history of diastolic heart failure, COPD, anxiety, depression, CKD stage III, hypertension, chronic in dwelling Gonzalez catheter and GERD presented to the ED with shortness of breath and acute on chronic anemia. CXR on admission showed cardiomegaly and radiographic evidence of pulmonary vascular congestion with bilateral pleural effusions. Right upper lobe airspace opacities, pneumonia versus asymmetric edema. CT chest showed multifocal airspace consolidation is seen throughout both lungs. The appearance is typical for pneumonia/aspiration pneumonitis. Small to moderate pleural effusions. Patient is chronically on 2 L of nasal cannula due to COPD On admission was on 3 to 4 L in the hospital however overnight her oxygen requirement increased significantly, to 10 L (10/15) ABG -pH 7.36, PCO2 70, PO2 60, bicarb 39 Repeat CXR on 10/21 showed mild interval improvement/redistribution of bilateral pleural effusion. Unchanged opacities within bilateral lungs which could represent pneumonia. Antibiotics started by iphone developer/ertapenem, then switched to cefepime to cover for possible Pseudomonas , added flagyl for anaerobic coverage Also started on vancomycin, obtained MRSA nasal swab - negative Discussed linezolid, however due to patient's medication such as Celexa or nortriptyline, linezolid is contraindicated Guaifenesin, flutter valve and incentive spirometry started Pulmonary medicine consulted, recommend CT chest without contrast, which was ordered MRSA nasal swab negative, Vancomycin was discontinued Switch cefepime and flagyl to zosyn. Cont. to monitor closely resp. status and oxygen requirements which seem to fluctuate between 3 and 7L. Encourage flutter valve, IS. Repeat CXR today showed no change in the diffuse interstitial thickening and right lung airspace opacities. Will add PO Augmentin and continue neb treatment and oxygen supplement 10/24 Code josue called this morning for worsening SOB Possible aspiration pneumonia CXR showed increasing airspace consolidation throughout the right lung, as well as increasing patchy airspace consolidation in the left lung. CT chest showed Multifocal airspace consolidation is again seen throughout both lungs. The appearance is typical for pneumonia/aspiration pneumonitis, and this has increased throughout the right upper lung as compared to 10/15/2020. Case discussed with pulm recommended IV lasix and IV steroid Abx changed from Augmentin to IV Zosyn Continue oxygen supplement Speech therapy eval plan for video study Continue monitor closely (2) COPD (chronic obstructive pulmonary disease): - cont. home medications and as above (3) Acute on chronic diastolic CHF (congestive heart failure): (4) Elevated troponin: (5) Congestive heart failure: On admission - Chest x-ray with some pulmonary vascular congestion and some right upper lobe airspace opacities patient denied any cough, fever and absence of any leukocytosis. proBNP of 11,000 on admission. Cardiac enzymes were not concerning. Does use 2-3 L of nasal cannula at baseline, on 4 L of nasal cannula on 10/14 Continued with IV Lasix 40 mg twice daily. Continue to monitor ins and outs along with daily weights. Echo obtained, no change compared to previous study in August 2020. Normal LV systolic function without regional wall motion abnormality, EF 60 to 65%. Cardiology consulted - as patient also complained of chest pain. Chest pain seems to be musculoskeletal in origin. Patient did not appear fluid overload and it was recommended that IV Lasix is stopped and patient is restarted on her home p.o. Lasix. We will continue to closely monitor After aspiration event CT chest obtained, which showed consolidation and also pl. effusions, cont. w/ IV lasix and albumin , as above 10/24/20 Chest pain Moslty pleuritic in nature Troponin mildly elevated mostly to hypoxic respiratory failure and elevated creatinine EKG showed no acute ischemic changes IV lasix given today Continue monitor BMP while getting IV lasix (6) GERD (gastroesophageal reflux disease): (7) Anemia: GI bleed H. pylori Acute on chronic blood loss anemia - seen by GI at [facility] and also here -At [facility] presented with with coffee-ground emesis on arrival -At [facility] she underwent EGD (09/22/20), which showed gastritis and small gastric ulcer with no active bleeding. She was found to have H. pylori, and was treated. She finished treatment on October 07 -She is supposed to have a follow-up EGD in 8 weeks to assess ulcer healing (w/ [facility]) -Per [facility] - continue PPI, trend H&H, transfuse as needed, follow up w/ [facility] providers -Patient was transfused in [facility], and she also obtained 2 units of PRBCs here on admission Hgb stable 9.2 (10/20) Monitor H&H, cont. to closely monitor, may require another blood transfusion given her cardiac hx Hgb stable at 9.4 today Fever pt had a fever overnight switch Augmentin back to zosyn obtain blood cultx, CXR, UA/U cultx -pt has pna and recent orthopedic procedure however she has been doing well -she has chronic Gonzalez - concern for UA -loose stools - obtain c. diff -Gonzalez removed - per nursing staff tip of catheter w/ stool -continue with straight cath - obtain CT abdomen/pelvis to eval for possible bladder/bowel fistula Augmentin changed to IV Zosyn (8) Right femoral fracture: -In [facility] underwent right femur removal of hardware. Revision ORIF of right femur. Wound debridement and closure. Placement of antibiotic delivery device. On September 24, 2020, by . -Postop plan at that time was patient will be weightbearing as tolerated on her right lower extremity. She will begin DVT prophylaxis starting the night of postoperative day 0. Orthopedic infectious disease will provide recommendations for antibiotics postoperatively. Will obtain final x-rays of her right femur. Per hospitalist discharge summary, patient was discharged to [facility] -Intraoperative cultures grew 1+ E. faecium and few Staph aureus resistant to oxacillin. Ortho ID was following and recommended daptomycin 900 mg IV daily from September 25 to November 05, 2020. With follow-up CPK weekly, weightbearing of the right lower extremity as tolerated. PICC line was placed for 6 weeks of antibiotics. Following 6 weeks of IV antibiotics, plan will be to indefinitely suppressed with doxycycline monohydrate 100 mg p.o. twice daily due to the presence of extensive hardware in the limb. Lab results to be faxed to ID office at , outpatient follow-up with Ortho ID (Daptomycin dose was confirmed between Ortho ID in [place] and pharmacist at [facility]) -DVT prophylaxis achieved with Lovenox 40 twice daily for 3 weeks, end date October 14 -Per discharge summary, patient supposed to follow-up with orthopedics, Dr. Kaba, on October 14 - will reschedule follow up -[facility] - can be contacted at -On current admission, R leg - several incisions with sutures in place, one higher up on the thigh another one lateral to the knee -wound care was consulted as well as orthopedics given her extensive history and poorly healing wounds (9) Morbid obesity: - needs counselling (10) Weakness: (11) Depression: (12) Anxiety: - cont home medications - ativan decreased as per nursing staff pt becomes very somnolent w/ meds (13) History of pulmonary embolism: (14) CKD (chronic kidney disease) stage 3, GFR 30-59 ml/min: BLANCO on CKD 3 Possible related to contrast and Lasix CT abd/pelvis showed no hydronephrosis Creatinine 1.7 today Lasix IV given today Continue monitor BMP (15) Hypertension: (16) Hyperlipidemia: - monitor BP, cont. home meds (17) Chronic indwelling Gonzalez catheter: -Patient was having loose stools after requiring enema and disimpaction for constipation - now has fever (10/21), Gonzalez removed and noted stool at the tip of catheter -UA, U cultx obtained - CT abdomen/pelvis showed no bladder/bowel fistula Admission and Anticipated Discharge Date Admission Date: October 13, 2020 Subjective Pt was seen and examined Code josue called this morning because pt was complaint of worsening SOB and chest pain Pt said that chest pain mostly when taking deep breath Stat EKG done showed no acute ischemic changes Spoke to son over the phone today and provided with updates and answered all his questions Pt said that she continues to have SOB Review of Systems Review of Systems: All systems reviewed & are unremarkable except as noted in Subjective Physical Exam Physical Exam: General- No acute distress Head- atraumatic Eyes- PERRL, EOMI, ENT- oropharynx clear Neck- supple, no JVD Lungs- diminished breath sound Heart- regular rhythm; no murmur Abdomen- normal bowel sounds, soft, nontender Extremities- no calf tenderness, moves extremities Neuro- alert, oriented x 3; PERRL, EOMI; no facial palsy; no dysarthria Skin- warm & dry Results & Data Results & Data ([facility]) Vital Signs (Past 12 Hours) Vital Signs Temp Pulse Pulse Pulse Resp BP Pulse Ox 10/25/20 01:18 116 H 12 86 L 10/24/20 22:38 37 C 83 18 135/69 90 10/24/20 19:21 79 16 87 L 10/24/20 19:02 36.6 C 78 19 143/56 H 90 10/24/20 15:29 80 10/24/20 15:10 36.8 C 80 18 131/61 92 10/24/20 13:55 36.8 C 77 20 119/51 L 90 (1) Congestive heart failure Heart failure chronicity: acute Heart failure type: unspecified Qualified Code(s): I50.9 - Heart failure, unspecified (2) Anemia Anemia type: unspecified type Qualified Code(s): D64.9 - Anemia, unspecified (3) COPD (chronic obstructive pulmonary disease) COPD type: unspecified COPD Qualified Code(s): J44.9 - Chronic obstructive pulmonary disease, unspecified
[2020-10-25] MEDS ORDERED: NALOXONE HCL 0.4 MG/1 ML VIAL/CARP IV STA (02:12)
[2020-10-25] MEDS: METOPROLOL SUCC 25MG EXT REL TAB PO SCH (02:13)
[2020-10-25 05:03] LABS: Basophils # (auto) 0.01 K/uL (0-0.2); Basophils % (auto) 0.1 %; Hemoglobin 8.7 g/dL (12.0-16.0); Immature Granulocytes # (auto) 0.02 K/uL (0.00-0.02); Immature Granulocytes % (auto) 0.2 %; Lymphocytes # (auto) 0.47 K/uL (1.2-3.4); Lymphocytes % (auto) 4.1 %; Mean Corpuscular Hemoglobin 28.9 pg (25-34); Mean Corpuscular Volume 96.3 fL (80-100); Mean Platelet Volume 10.1 fL (7.4-10.4); Monocytes # (auto) 0.16 K/uL (0.11-0.59); Monocytes % (auto) 1.4 %; Neutrophils # (auto) 10.67 K/uL (1.4-6.5); Neutrophils % (auto) 94.2 %; Platelet Count 264 K/uL (130-400); RDW Coefficient of Variation 15.2 % (11.5-14.5); RDW Standard Deviation 53.8 fL (36.4-46.3); Red Blood Count 3.01 M/uL (4.2-5.4); White Blood Count 11.33 K/uL (4.8-10.8)
[2020-10-25 05:10] LABS: Base Excess ABG 10.8 mEq/L (-9-1.8); HCO3 ABG 40 mmol/L (19-24); Oxygen Saturation ABG 95.2 % (90-95); PCO2 ABG 84 mmHg (35-46); PO2 ABG 84 mmHg (80-95)
[2020-10-25 05:13] LABS: Allen Test Pos (Pos)
[2020-10-25 05:23] LABS: BUN Creatinine Ratio 27.2 (10-20); Calcium 9.4 mg/dl (8.5-10.1); Creatinine Clr Calc Pharmacy 38.1 ml/min; Est GFR (African American) 36.1 ml/min; Est GFR (Non-African American) 31.2 ml/min; Potassium 4.6 mmol/L (3.5-5.1)
[2020-10-25 05:35] LABS: Troponin I 0.047 ng/ml (0-0.045)
[2020-10-25 06:51] LABS: Base Excess ABG 11.8 mEq/L (-9-1.8); HCO3 ABG 40 mmol/L (19-24); Oxygen Saturation ABG 95.1 % (90-95); PCO2 ABG 78 mmHg (35-46); PO2 ABG 81 mmHg (80-95); pH ABG 7.33 (7.35-7.45)
[2020-10-25 06:53] LABS: Allen Test Pos (Pos)
[2020-10-25] MEDS: SODIUM CHLOR 7% 4 ML NEB NEB SCH ×2 (07:31→19:24)
--- NOTE | 2020-10-25 07:31 | Ultrasound Report ---
BILATERAL LOWER EXTREMITY VENOUS DOPPLER HISTORY: leg swelling, px unstable to leave pcu COMPARISON STUDY: None. FINDINGS: There is normal compressibility, flow, and augmentation within the bilateral lower extremit y deep venous systems. IMPRESSION: No DVT within the right or left lower extremity. ACT 112: Negative or not required by law. Electronically signed by: Rob Hallman M.D. 10/25/2020 7:30 AM
--- NOTE | 2020-10-25 07:45 | Electrocardiogram Report ---
Test Reason : Blood Pressure : / mmHG Vent. Rate : 086 BPM Atrial Rate : 086 BPM P-R Int : 152 ms QRS Dur : 092 ms QT Int : 376 ms P-R-T Axes : 035 036 048 degrees QTc Int : 449 ms Normal sinus rhythm with sinus arrhythmia Minor Anterior ST elevation, most consistent with repolarization variant Normal ECG When compared with ECG of 24-OCT-2020 14:03, No significant change was found Confirmed by Sergio Obrien ([id number]) on 10/25/2020 7:44:38 AM Referred By: [facility] Confirmed By:Sergio Obrien
[2020-10-25] MEDS: LIDOCAINE 5% 1 PATCH TD SCH (08:28)
[2020-10-25] MEDS: methylPREDNISolone 40 MG in SYRINGE 0 ML IV SCH (08:28)
[2020-10-25] MEDS: FLUTICASONE/VILANTEROL 100/25MCG 14 PUFFS/INHALER INH SCH (08:29)
[2020-10-25] MEDS: UMECLIDINIUM BROMIDE 62.5MCG/BLISTER 7 PUFFS/INHALER INH SCH (08:29)
[2020-10-25] MEDS: ADVANCED PROBIOTIC 1250 MG CAPSULE PO SCH ×4 (08:32→08:48)
[2020-10-25] MEDS: FERROUS SULFATE 325 MG TAB PO SCH ×2 (08:32→08:46)
[2020-10-25] MEDS: guaiFENesin 600 MG TABCR PO SCH ×3 (08:32→21:08)
[2020-10-25] MEDS: CITALOPRAM 20 MG TAB PO SCH ×2 (08:33→08:47)
[2020-10-25] MEDS: CHOLECALCIFEROL 1,000 UNITS 25 MCG TAB PO SCH ×2 (08:33→08:45)
[2020-10-25] MEDS: MULTIVITAMIN TAB PO SCH ×2 (08:33→08:48)
[2020-10-25] MEDS: PIPERACILLIN/TAZOBACTAM 4.5 GM in DEXTROSE 5% 100 ML IV SCH ×3 (08:38→21:08)
[2020-10-25] MEDS: LORazepam 1 MG TAB PO PRN ×3 (08:41→21:02)
[2020-10-25 08:55] LABS: Partial Thromboplastin Ratio 1.6
[2020-10-25] MEDS ORDERED: predniSONE 20 MG TAB PO SCH (09:00)
--- NOTE | 2020-10-25 09:27 | XRay Report ---
XR chest 1V portable CLINICAL HISTORY: low o2 COMPARISON STUDY: October 24, 2020 FINDINGS: No pneumothorax. Stable [id number] bilateral pleural effusion associated with atelectasis or infiltrates. Stable opacity within right upper lung. Redemonstration of patchy mixed reticular and airspace opacit ies throughout bilateral lungs, slightly worsened within left mid lung. Cardiomediastinal silhouette is unchanged. Study is limited due to rotation. Pulmonary vasculature is obscured.. Osseous structures: unremarkable vertebral bodies are not well seen. IMPRESSION: 1. Multifocal pneumonia and bilateral pleural effusion, probably slightly worsened within left mid l betsy. Limited exam due to rotation. ACT 112: Negative or not required by law. The above report was generated using voice recognition software. It may contain grammatical, syntax o r spelling errors. Electronically signed by: Laure Corbin DO 10/25/2020 9:26 AM
[2020-10-25] MEDS: PANTOprazole 40 MG in SYRINGE 0 ML IV SCH ×2 (09:54→21:08)
--- NOTE | 2020-10-25 12:54 | Cardiology Progress Note ---
Date of Service October 25, 2020 Assessment & Plan (1) Musculoskeletal chest pain: (2) Narcotic dependence: (3) Elevated troponin: (4) Anemia: (5) GERD (gastroesophageal reflux disease): (6) CKD (chronic kidney disease) stage 3, GFR 30-59 ml/min: (7) COPD (chronic obstructive pulmonary disease): As previously outlined by Dr. Pratt in his prior notes the patient has noncardiac chest wall pain which has been present during her hospital admission. She has chronically elevated troponins which are not due to an ischemic cardiac event. The patient took a fall at home and fractured her hip which was repaired and then she went to [facility] and then returned back to the hospital about a week to 10 days ago. She was given IV morphine last night and then became unresponsive resulting in a transfer to the cardiac floor. Her EKGs are unchanged and her cardiac troponins have remained borderline elevated with no increase or decrease. At this point I would recommend a pain management consult. They may be able to provide some guidance with the use of narcotics. In the past I have seen success with an injection into the costochondral joint which has improved chest pain. I would recommend no additional cardiac testing at this time. She was placed on heparin due to this acute event and from a cardiology standpoint I believe it may be discontinued. Admission and Anticipated Discharge Date Admission Date: October 13, 2020 Subjective The patient has chest wall pain that she will point to the exact location which is centered around her fourth rib. Review of Systems Review of Systems: All systems reviewed & are unremarkable except as noted in Subjective Physical Exam Physical Exam: General: no acute distress and stated age Head: normocephalic, no masses, lesions, tenderness or abnormalities Eyes: conjunctiva are pink and non-injected, sclera clear Neck: supple, no adenopathy, no bruits, normal jugular venous pulse, no hepatojugular reflux Chest: normal shape and normal respiratory effort. Chest pain reproducible with palpation along the left sternal rib area. Lungs: clear to auscultation and percussion Cardiac Exam: - regular rate & rhythm, no murmurs gallops or rubs - normal S1, normal S2 Pulses: 2(+) throughout Abdomen: abdomen soft, non-tender, no abnormal masses and no hepatosplenomegaly Musculoskeletal: no gait disturbance, no joint inflammation, no deforming ar thritis Extremities: no edema and no cyanosis Neuro: grossly normal exam Results & Data ([facility]) Vital Signs (Past 12 Hours) Vital Signs Temp Pulse Pulse Pulse Resp BP Pulse Ox 10/25/20 11:50 89 L 10/25/20 11:33 90 10/25/20 11:08 36.7 C 78 17 131/60 90 10/25/20 09:00 68 90 10/25/20 08:09 36.3 C L 77 24 134/66 97 10/25/20 07:32 65 64 22 96 10/25/20 05:41 73 23 98 10/25/20 02:25 80 20 106/61 91 10/25/20 02:20 80 17 92 10/25/20 02:00 85 22 115/57 L 85 L 10/25/20 01:35 88 L 10/25/20 01:18 116 H 12 86 L 10/25/20 01:06 122/56 L Laboratory Results Laboratory Results - last 24 hr 10/24/20 10/25/20 10/25/20 16:12 00:06 00:06 WBC RBC Hgb Hct MCV MCH MCHC RDW Std Deviation RDW Coeff of Leo Plt Count MPV Immature Gran % (Auto) Neut % (Auto) Lymph % (Auto) [place] % (Auto) Eos % (Auto) Baso % (Auto) Neut # (Auto) Lymph # (Auto) [place] # (Auto) Eos # (Auto) Baso # (Auto) Immature Gran # (Auto) APTT 29.1 PTT Ratio 1.1 ABG pH ABG pCO2 ABG pO2 ABG HCO3 ABG O2 Saturation ABG Base Excess Tanmay Test VBG pH VBG pCO2 VBG pO2 VBG HCO3 VBG O2 Saturation VBG Base Excess Barometric Pressure Oxygen Given Sodium 133 L Potassium 4.9 D Chloride 89 L Carbon Dioxide 37 H Anion Gap 7.0 BUN 47 H Creatinine 1.64 H Est Cr Clr Drug Dosing 37.9 Est GFR ( Amer) 35.8 Est GFR (Non-Af Amer) 30.9 BUN/Creatinine Ratio 28.4 H Glucose 154 H POC Glucose Calcium 9.8 Magnesium 2.5 H Total Bilirubin 0.3 AST 18 ALT 28 Alkaline Phosphatase 70 Ammonia Troponin I 0.072 H* 0.059 H* Total Protein 6.1 L Albumin 1.8 L Globulin 4.3 H Albumin/Globulin Ratio 0.4 L Lipase 73 10/25/20 10/25/20 10/25/20 00:06 00:06 04:54 WBC 11.33 H RBC 3.01 L Hgb 8.7 L Hct 29.0 L MCV 96.3 MCH 28.9 MCHC 30.0 L RDW Std Deviation 53.8 H RDW Coeff of Leo 15.2 H Plt Count 264 MPV 10.1 Immature Gran % (Auto) 0.2 Neut % (Auto) 94.2 Lymph % (Auto) 4.1 [place] % (Auto) 1.4 Eos % (Auto) 0.0 Baso % (Auto) 0.1 Neut # (Auto) 10.67 H Lymph # (Auto) 0.47 L [place] # (Auto) 0.16 Eos # (Auto) 0.00 Baso # (Auto) 0.01 Immature Gran # (Auto) 0.02 APTT PTT Ratio ABG pH ABG pCO2 ABG pO2 ABG HCO3 ABG O2 Saturation ABG Base Excess [place]may Test VBG pH 7.32 L VBG pCO2 79 H VBG pO2 48 VBG HCO3 39 VBG O2 Saturation 83.4 VBG Base Excess 10.9 Barometric Pressure Oxygen Given Sodium Potassium Chloride Carbon Dioxide Anion Gap BUN Creatinine Est Cr Clr Drug Dosing Est GFR ( Amer) Est GFR (Non-Af Amer) BUN/Creatinine Ratio Glucose POC Glucose 163 H Calcium Magnesium Total Bilirubin AST ALT Alkaline Phosphatase Ammonia Troponin I Total Protein Albumin Globulin Albumin/Globulin Ratio Lipase 10/25/20 10/25/20 10/25/20 04:54 04:54 04:54 WBC RBC Hgb Hct MCV MCH MCHC RDW Std Deviation RDW Coeff of Leo Plt Count MPV Immature Gran % (Auto) Neut % (Auto) Lymph % (Auto) [place] % (Auto) Eos % (Auto) Baso % (Auto) Neut # (Auto) Lymph # (Auto) [place] # (Auto) Eos # (Auto) Baso # (Auto) Immature Gran # (Auto) APTT PTT Ratio ABG pH 7.30 L ABG pCO2 84 H ABG pO2 84 ABG HCO3 40 H ABG O2 Saturation 95.2 H ABG Base Excess 10.8 H [place]may Test Pos VBG pH VBG pCO2 VBG pO2 VBG HCO3 VBG O2 Saturation VBG Base Excess Barometric Pressure Oxygen Given 70% Sodium 134 L Potassium 4.6 Chloride 92 L Carbon Dioxide 37 H Anion Gap 5.0 BUN 44 H Creatinine 1.63 H Est Cr Clr Drug Dosing 38.1 Est GFR ( Amer) 36.1 Est GFR (Non-Af Amer) 31.2 BUN/Creatinine Ratio 27.2 H Glucose 152 H POC Glucose Calcium 9.4 Magnesium Total Bilirubin AST ALT Alkaline Phosphatase Ammonia 23.0 Troponin I 0.047 H* Total Protein Albumin Globulin Albumin/Globulin Ratio Lipase 10/25/20 10/25/20 06:28 08:29 WBC RBC Hgb Hct MCV MCH MCHC RDW Std Deviation RDW Coeff of Leo Plt Count MPV Immature Gran % (Auto) Neut % (Auto) Lymph % (Auto) [place] % (Auto) Eos % (Auto) Baso % (Auto) Neut # (Auto) Lymph # (Auto) [place] # (Auto) Eos # (Auto) Baso # (Auto) Immature Gran # (Auto) APTT 42.0 H PTT Ratio 1.6 ABG pH 7.33 L ABG pCO2 78 H ABG pO2 81 ABG HCO3 40 H ABG O2 Saturation 95.1 H ABG Base Excess 11.8 H [place] Test Pos VBG pH VBG pCO2 VBG pO2 VBG HCO3 VBG O2 Saturation VBG Base Excess Barometric Pressure 732.1 Oxygen Given 15L Sodium Potassium Chloride Carbon Dioxide Anion Gap BUN Creatinine Est Cr Clr Drug Dosing Est GFR ( Amer) Est GFR (Non-Af Amer) BUN/Creatinine Ratio Glucose POC Glucose Calcium Magnesium Total Bilirubin AST ALT Alkaline Phosphatase Ammonia Troponin I Total Protein Albumin Globulin Albumin/Globulin Ratio Lipase Medications Administered Current Inpatient Medications Acetaminophen (Acetaminophen 325 Mg Tab) 650 mg PO Q4H PRN PRN Reason: Pain or Fever Stop: 11/12/20 16:43 Last Admin: 10/24/20 05:32 Dose: 650 mg Documented by: Al Hydrox/Mg Hydrox/Simethicone (Aluminum/Magnesium Susp 30 Ml Udc) 15 ml PO Q6H PRN PRN Reason: dyspepsia Stop: 11/21/20 13:14 Last Admin: 10/23/20 09:57 Dose: 15 ml Documented by: Amitriptyline HCl (Amitriptyline Hcl 25 Mg Tab) 25 mg PO HS ROBERT Stop: 11/12/20 20:59 Last Admin: 10/24/20 20:18 Dose: 25 mg Documented by: Aspirin (Aspirin 81 Mg Ectab) 81 mg PO QAM ROBERT Stop: 11/24/20 00:59 Last Admin: 10/25/20 01:59 Dose: 81 mg Documented by: Atorvastatin Calcium (Atorvastatin 20 Mg Tab) 20 mg PO HS ROBERT Stop: 11/12/20 20:59 Last Admin: 10/24/20 20:17 Dose: 20 mg Documented by: Citalopram Hydrobromide (Citalopram 20 Mg Tab) 10 mg PO QAM ROBERT Stop: 11/13/20 08:59 Last Admin: 10/25/20 08:47 Dose: 10 mg Documented by: Ferrous Sulfate (Ferrous Sulfate 325 Mg Tab) 325 mg PO DAILY ROBERT Stop: 11/13/20 08:59 Last Admin: 10/25/20 08:46 Dose: 325 mg Documented by: Fluticasone/Vilanterol (Fluticasone/Vilanterol 100/25mcg 14 Puffs/Inhaler) 1 puffs INH DAILY ROBERT Stop: 11/13/20 08:59 Last Admin: 10/25/20 08:29 Dose: 1 puffs Documented by: Furosemide (Furosemide 20 Mg Tab) 20 mg PO BID17 ROBERT Stop: 11/14/20 16:59 Last Admin: 10/23/20 16:56 Dose: 20 mg Documented by: Guaifenesin (Guaifenesin 600 Mg Tabcr) 600 mg PO Q12 ROBERT Stop: 11/14/20 08:59 Last Admin: 10/25/20 08:45 Dose: 600 mg Documented by: Heparin Sodium (Beef Lung) (Heparin 10 Unit/Ml 5 Ml Flush) 5 ml FLUSH PRN PRN PRN Reason: Flush Stop: 11/13/20 08:12 Last Admin: 10/25/20 08:51 Dose: 5 ml Documented by: Hydromorphone HCl (Hydromorphone Inj 0.5 Mg/0.5 Ml Syr) 0.25 mg IV Q6H PRN PRN Reason: Pain Stop: 11/08/20 01:03 Pantoprazole Sodium 40 mg/ (Syringe) 10 mls @ 5 mls/min IV BID ROBERT Stop: 11/13/20 20:59 Last Admin: 10/25/20 09:54 Dose: 5 mls/min Documented by: Daptomycin 900 mg/ Syringe 18 mls @ 9 mls/min IV Q24H ROBERT; Protocol Stop: 10/28/20 12:59 Last Admin: 10/24/20 12:58 Dose: 9 mls/min Documented by: Piperacillin Sod/Tazobactam (Sod 4.5 gm/ Dextrose) 120 mls @ 30 mls/hr IV Q8H ROBERT; Protocol Stop: 10/31/20 13:59 Last Infusion: 10/25/20 09:54 Dose: Infused Documented by: Acetaminophen (Ofirmev) 1,000 mg in 100 mls @ 400 mls/hr IV Q8H PRN PRN Reason: fever/pain Stop: 10/27/20 23:18 Last Infusion: 10/25/20 09:26 Dose: Infused Documented by: Heparin Sodium/Dextrose (Heparin Sodium/Dextrose) 25,000 units in 500 mls @ 21 mls/hr IV .[id number] ROBERT; Protocol Stop: 11/24/20 00:59 Last Titration: 10/25/20 09:00 Dose: 1,050 units/hr, 21 mls/hr Documented by: Methylprednisolone 40 mg/ (Syringe) 0.64 mls @ 1.5 mls/min IV DAILY ROBERT Stop: 11/24/20 08:59 Last Admin: 10/25/20 08:28 Dose: 1.5 mls/min Documented by: Ipratropium Stroud (Ipratropium Stroud Neb Soln 0.02% 2.5 Ml Vial) 0.5 mg INH Q6R ROBERT Stop: 11/14/20 06:59 Last Admin: 10/25/20 07:31 Dose: 0.5 mg Documented by: Lactobacillus Acidoph/Casei/Rhamnos (Advanced Probiotic 1250 Mg Capsule) 2 cap PO DAILY ROBERT Stop: 11/19/20 10:29 Last Admin: 10/25/20 08:48 Dose: 2 cap Documented by: Lactobacillus Acidoph/Casei/Rhamnos (Advanced Probiotic 1250 Mg Capsule) 2 cap PO DAILY ROBERT Stop: 11/20/20 12:14 Last Admin: 10/25/20 08:46 Dose: 2 cap Documented by: Levalbuterol HCl (Levalbuterol 1.25mg/0.5ml Neb) 1.25 mg INH Q6R ROBERT Stop: 11/14/20 06:59 Last Admin: 10/25/20 07:31 Dose: 1.25 mg Documented by: Lidocaine (Lidocaine 5% 1 Patch) 1 patch TD DAILY [facility] Stop: 11/13/20 08:59 Last Admin: 10/25/20 08:28 Dose: 1 patch Documented by: Lisinopril (Lisinopril 5 Mg Tab) 5 mg PO DAILY [facility] Stop: 11/13/20 08:59 Last Admin: 10/14/20 07:48 Dose: 5 mg Documented by: Lorazepam (Lorazepam 1 Mg Tab) 0.25 mg PO QID PRN PRN Reason: Anxiety Stop: 11/14/20 08:21 Last Admin: 10/25/20 08:41 Dose: 0.25 mg Documented by: Metoprolol Succinate (Metoprolol Succ 25mg Ext Rel Tab) 25 mg PO QAM [facility] Stop: 11/24/20 01:34 Last Admin: 10/25/20 02:13 Dose: 25 mg Documented by: Miscellaneous (Remove Lidoderm Patch) 1 ea N/A DAILY@2100 [facility] Stop: 11/12/20 20:59 Last Admin: 10/24/20 20:18 Dose: 1 ea Documented by: Miscellaneous Information (Daptomycin Consult Active) 1 ea N/A UD PRN PRN Reason: Consult Stop: 11/16/20 11:06 Miscellaneous Information (Piperacill/Tazobac Consult Active) 1 ea N/A UD PRN PRN Reason: Consult Stop: 11/20/20 12:28 Montelukast Sodium (Montelukast Sodium 10 Mg Tablet) 10 mg PO HS [facility] Stop: 11/12/20 20:59 Last Admin: 10/24/20 20:18 Dose: 10 mg Documented by: Multivitamins (Multivitamin Tab) 1 tab PO QAM [facility] Stop: 11/13/20 08:59 Last Admin: 10/25/20 08:48 Dose: 1 tab Documented by: Nitroglycerin (Nitroglycerin Sl 0.4 Mg/Tab Tab) 0.4 mg SL PRN PRN PRN Reason: cp Stop: 11/23/20 23:50 Last Admin: 10/25/20 01:08 Dose: 0.4 mg Documented by: Ondansetron HCl (Ondansetron 2 Mg Od Tab) 2 mg PO Q4H PRN PRN Reason: Nausea And Vomiting Stop: 11/16/20 12:59 Last Admin: 10/24/20 08:33 Dose: 2 mg Documented by: Polyethylene Glycol (Polyethylene (Miralax) 17 Gm Pack) 17 gm PO BID PRN PRN Reason: constipation Stop: 11/16/20 20:59 Pregabalin (Pregabalin 150 Mg Cap) 150 mg PO TID [facility] Stop: 11/12/20 16:43 Last Admin: 10/24/20 20:20 Dose: 150 mg Documented by: Sennosides (Senna 8.6 Mg Tab) 17.2 mg PO QAM [facility] Stop: 11/17/20 09:14 Last Admin: 10/19/20 08:22 Dose: Not Given Documented by: Sodium Chloride (Sodium Chlor 7% 4 Ml Neb) 4 ml NEB BIDR [facility] Stop: 11/23/20 18:59 Last Admin: 10/25/20 07:31 Dose: 4 ml Documented by: Trazodone HCl (Trazodone Hcl 50 Mg Tab) 50 mg PO HS [facility] Stop: 11/12/20 20:59 Last Admin: 10/24/20 20:20 Dose: 50 mg Documented by: Umeclidinium Stroud (Umeclidinium Stroud 62.5mcg/Blister 7 Puffs/Inhaler) 1 puffs INH DAILY [facility] Stop: 11/13/20 08:59 Last Admin: 10/25/20 08:29 Dose: 1 puffs Documented by: Vitamin D (Cholecalciferol 1,000 Units 25 Mcg Tab) 5,000 units PO DAILY [facility] Stop: 11/13/20 08:59 Last Admin: 10/25/20 08:45 Dose: 5,000 units Documented by:
[2020-10-25] MEDS: DAPTOmycin 900 MG in SYRINGE 0 ML IV SCH (14:04)
[2020-10-25] MEDS: oxyCODONE HCL IR 5 MG TAB (IMMEDIATE RELEASE) PO PRN (18:37)
--- NOTE | 2020-10-25 19:16 | Hospitalist Progress Note ---
Date of Service October 25, 2020 Assessment & Plan (1) Acute on chronic respiratory failure with hypoxia and hypercapnia: Aspiration pneumonia patient is a 70-year-old female with past medical history of diastolic heart failure, COPD, anxiety, depression, CKD stage III, hypertension, chronic in dwelling Gonzalez catheter and GERD presented to the ED with shortness of breath and acute on chronic anemia. CXR on admission showed cardiomegaly and radiographic evidence of pulmonary vascular congestion with bilateral pleural effusions. Right upper lobe airspace opacities, pneumonia versus asymmetric edema. CT chest showed multifocal airspace consolidation is seen throughout both lungs. The appearance is typical for pneumonia/aspiration pneumonitis. Small to moderate pleural effusions. Patient is chronically on 2 L of nasal cannula due to COPD On admission was on 3 to 4 L in the hospital however overnight her oxygen requirement increased significantly, to 10 L (10/15) ABG -pH 7.36, PCO2 70, PO2 60, bicarb 39 Repeat CXR on 10/21 showed mild interval improvement/redistribution of bilateral pleural effusion. Unchanged opacities within bilateral lungs which could represent pneumonia. Antibiotics started by social sciences research scientist/ertapenem, then switched to cefepime to cover for possible Pseudomonas , added flagyl for anaerobic coverage Also started on vancomycin, obtained MRSA nasal swab - negative Discussed linezolid, however due to patient's medication such as Celexa or nortriptyline, linezolid is contraindicated Guaifenesin, flutter valve and incentive spirometry started Pulmonary medicine consulted, recommend CT chest without contrast, which was ordered MRSA nasal swab negative, Vancomycin was discontinued Switch cefepime and flagyl to zosyn. Cont. to monitor closely resp. status and oxygen requirements which seem to fluctuate between 3 and 7L. Encourage flutter valve, IS. Repeat CXR today showed no change in the diffuse interstitial thickening and right lung airspace opacities. Will add PO Augmentin and continue neb treatment and oxygen supplement 10/25 Code josue called this morning for worsening SOB Possible aspiration pneumonia CXR showed increasing airspace consolidation throughout the right lung, as well as increasing patchy airspace consolidation in the left lung. CT chest showed Multifocal airspace consolidation is again seen throughout both lungs. The appearance is typical for pneumonia/aspiration pneumonitis, and this has increased throughout the right upper lung as compared to 10/15/2020. Case discussed with pulm recommended IV lasix and IV steroid Abx changed from Augmentin to IV Zosyn Continue oxygen supplement Speech therapy evaluation plan for video study on Tuesday Clinically improved (2) COPD (chronic obstructive pulmonary disease): - cont. home medications and as above (3) Acute on chronic diastolic CHF (congestive heart failure): (4) Elevated troponin: (5) Congestive heart failure: On admission - Chest x-ray with some pulmonary vascular congestion and some right upper lobe airspace opacities patient denied any cough, fever and absence of any leukocytosis. proBNP of 11,000 on admission. Cardiac enzymes were not concerning. Does use 2-3 L of nasal cannula at baseline, on 4 L of nasal cannula on 10/14 Continued with IV Lasix 40 mg twice daily. Continue to monitor ins and outs along with daily weights. Echo obtained, no change compared to previous study in August 2020. Normal LV systolic function without regional wall motion abnormality, EF 60 to 65%. Cardiology consulted - as patient also complained of chest pain. Chest pain seems to be musculoskeletal in origin. Patient did not appear fluid overload and it was recommended that IV Lasix is stopped and patient is restarted on her home p.o. Lasix. We will continue to closely monitor After aspiration event CT chest obtained, which showed consolidation and also pl. effusions, cont. w/ IV lasix and albumin , as above 10/25/20 Chest pain pleuritic in nature Mostly costochondritis due to the recent fall Troponin mildly elevated mostly to hypoxic respiratory failure and elevated creatinine and chronic EKG showed no acute ischemic changes Heparin drip was starting by the nocturnal provider Case discussed with cardiology that recommended to discontinue the IV heparin drip No additional cardiac testing needed Will consult pain management (6) GERD (gastroesophageal reflux disease): (7) Anemia: GI bleed H. pylori Acute on chronic blood loss anemia - seen by GI at [facility] and also here -At [place] presented with with coffee-ground emesis on arrival -At [place] she underwent EGD (09/22/20), which showed gastritis and small gastric ulcer with no active bleeding. She was found to have H. pylori, and was treated. She finished treatment on October 07 -She is supposed to have a follow-up EGD in 8 weeks to assess ulcer healing (w/ [place] [facility]) -Per [facility] - continue PPI, trend H&H, transfuse as needed, follow up w/ [place] providers -Patient was transfused in [place], and she also obtained 2 units of PRBCs here on admission Hgb stable 9.2 (10/20) Monitor H&H, cont. to closely monitor, may require another blood transfusion given her cardiac hx Hgb stable at 9.4 today Fever pt had a fever overnight switch Augmentin back to zosyn obtain blood cultx, CXR, UA/U cultx -pt has pna and recent orthopedic procedure however she has been doing well -she has chronic Gonzalez - concern for UA -loose stools - obtain c. diff -Gonzalez removed - per nursing staff tip of catheter w/ stool -continue with straight cath - obtain CT abdomen/pelvis to eval for possible bladder/bowel fistula -Augmentin changed to IV Zosyn -Continue IV Zosyn (8) Right femoral fracture: -In [place] underwent right femur removal of hardware. Revision ORIF of right femur. Wound debridement and closure. Placement of antibiotic delivery device. On September 24, 2020, by . -Postop plan at that time was patient will be weightbearing as tolerated on her right lower extremity. She will begin DVT prophylaxis starting the night of postoperative day 0. Orthopedic infectious disease will provide recommendations for antibiotics postoperatively. Will obtain final x-rays of her right femur. Per hospitalist discharge summary, patient was [facility] -Intraoperative cultures grew 1+ E. faecium and few Staph aureus resistant to oxacillin. Ortho ID was following and recommended daptomycin 900 mg IV daily from September 25 to November 05, 2020. With follow-up CPK weekly, weightbearing of the right lower extremity as tolerated. PICC line was placed for 6 weeks of anti biotics. Following 6 weeks of IV antibiotics, plan will be to indefinitely suppressed with doxycycline monohydrate 100 mg p.o. twice daily due to the presence of extensive hardware in the limb. Lab results to be faxed to ID office at , outpatient follow-up with Ortho ID (Daptomycin dose was confirmed between Ortho ID in [place] and pharmacist at [facility]) -DVT prophylaxis achieved with Lovenox 40 twice daily for 3 weeks, end date October 14 -Per discharge summary, patient supposed to follow-up with orthopedics, Dr. Kaba, on October 14 - will reschedule follow up -[facility] - can be contacted at -On current admission, R leg - several incisions with sutures in place, one higher up on the thigh another one lateral to the knee -wound care was consulted as well as orthopedics given her extensive history and poorly healing wounds (9) Morbid obesity: - needs counselling (10) Weakness: (11) Depression: (12) Anxiety: - cont home medications - ativan decreased as per nursing staff pt becomes very somnolent w/ meds (13) History of pulmonary embolism: (14) CKD (chronic kidney disease) stage 3, GFR 30-59 ml/min: BLANCO on CKD 3 Possible related to contrast and Lasix CT abd/pelvis showed no hydronephrosis Creatinine 1.6 today lasix on hold Continue monitor BMP (15) Hypertension: (16) Hyperlipidemia: - monitor BP, cont. home meds (17) Chronic indwelling Gonzalez catheter: -Patient was having loose stools after requiring enema and disimpaction for constipation - now has fever (10/21), Gonzalez removed and noted stool at the tip of catheter -UA, U cultx obtained - CT abdomen/pelvis showed no bladder/bowel fistula Admission and Anticipated Discharge Date Admission Date: October 13, 2020 Subjective Pt was seen and examined for follow up of chest pain and SOB Lying in bed with no acute distress Pt looks much better today She continues to have chest wall pain that seems to be related due to the fall She said that deep breath causes pain She continues asking for narcotic Review of Systems Review of Systems: All systems reviewed & are unremarkable except as noted in Subjective Physical Exam Physical Exam: General- No acute distress Head- atraumatic Eyes- PERRL, EOMI, ENT- oropharynx clear Neck- supple, no JVD Lungs- diminished breath sound Heart- regular rhythm; no murmur Abdomen- normal bowel sounds, soft, nontender Extremities- no calf tenderness, moves extremities Neuro- alert, oriented x 3; PERRL, EOMI; no facial palsy; no dysarthria Skin- warm & dry Results & Data Results & Data ([facility]) Vital Signs (Past 12 Hours) Vital Signs Temp Pulse Pulse Pulse Resp BP Pulse Ox 10/25/20 16:00 85 10/25/20 15:35 89 L 10/25/20 15:19 36.6 C 81 22 117/65 86 L 10/25/20 11:50 89 L 10/25/20 11:33 90 10/25/20 11:08 36.7 C 78 17 131/60 90 10/25/20 09:00 68 90 10/25/20 08:09 36.3 C L 77 24 134/66 97 10/25/20 07:32 65 64 22 96 (1) Congestive heart failure Heart failure chronicity: acute Heart failure type: unspecified Qualified Code(s): I50.9 - Heart failure, unspecified (2) Anemia Anemia type: unspecified type Qualified Code(s): D64.9 - Anemia, unspecified (3) COPD (chronic obstructive pulmonary disease) COPD type: unspecified COPD Qualified Code(s): J44.9 - Chronic obstructive pulmonary disease, unspecified
[2020-10-25] MEDS: MONTELUKAST SODIUM 10 MG TABLET PO SCH (21:08)
[2020-10-25] MEDS: ATORVASTATIN 20 MG TAB PO SCH (21:08)
[2020-10-25] MEDS ORDERED: BENZONATATE 100 MG CAPSULE PO PRN (22:47)
--- NOTE | 2020-10-25 22:51 | Communication Note ---
Date of Service: October 25, 2020 Notified by RN of blood-tinged sputum. AP Hemoptysis Ongoing treatment for aspiration pneumonia H&H now Hold aspirin. Will relay to AM provider.
[2020-10-25 23:27] LABS: Hematocrit (blood only) 29.9 % (37-47); Hemoglobin 9.3 g/dL (12.0-16.0)
[2020-10-26] MEDS: MICONAZOLE NITRATE POWDER 43 GM EXT SCH ×3 (00:01→19:59)
[2020-10-26] MEDS: LEVALBUTEROL 1.25MG/0.5ML NEB INH SCH ×4 (00:06→17:10)
[2020-10-26] MEDS: IPRATROPIUM BROMIDE NEB SOLN 0.02% 2.5 ML VIAL INH SCH ×4 (00:07→17:10)
[2020-10-26] MEDS: PIPERACILLIN/TAZOBACTAM 4.5 GM in DEXTROSE 5% 100 ML IV SCH ×3 (06:26→22:34)
[2020-10-26] MEDS: SODIUM CHLOR 7% 4 ML NEB NEB SCH ×2 (07:04→17:10)
[2020-10-26] MEDS: LORazepam 1 MG TAB PO PRN ×3 (07:53→23:18)
[2020-10-26] MEDS: CITALOPRAM 20 MG TAB PO SCH (07:56)
[2020-10-26] MEDS: LIDOCAINE 5% 1 PATCH TD SCH (07:56)
[2020-10-26] MEDS: traZODone HCL 50 MG TAB PO SCH ×2 (07:57→20:03)
[2020-10-26] MEDS: CHOLECALCIFEROL 1,000 UNITS 25 MCG TAB PO SCH (07:57)
[2020-10-26] MEDS: ADVANCED PROBIOTIC 1250 MG CAPSULE PO SCH ×2 (07:57→08:01)
[2020-10-26] MEDS: AMITRIPTYLINE HCL 25 MG TAB PO SCH (07:57)
[2020-10-26] MEDS: guaiFENesin 600 MG TABCR PO SCH ×2 (07:58→19:57)
[2020-10-26] MEDS: MULTIVITAMIN TAB PO SCH (07:58)
[2020-10-26] MEDS: METOPROLOL SUCC 25MG EXT REL TAB PO SCH (07:58)
[2020-10-26] MEDS: methylPREDNISolone 40 MG in SYRINGE 0 ML IV SCH (07:59)
[2020-10-26] MEDS: PANTOprazole 40 MG in SYRINGE 0 ML IV SCH ×2 (07:59→19:59)
[2020-10-26] MEDS: FERROUS SULFATE 325 MG TAB PO SCH (07:59)
[2020-10-26] MEDS: FLUTICASONE/VILANTEROL 100/25MCG 14 PUFFS/INHALER INH SCH (08:00)
[2020-10-26] MEDS: UMECLIDINIUM BROMIDE 62.5MCG/BLISTER 7 PUFFS/INHALER INH SCH (08:00)
[2020-10-26] MEDS ORDERED: predniSONE 20 MG TAB PO SCH (09:00)
[2020-10-26 10:25] LABS: Hematocrit (blood only) 29.9 % (37-47); Hemoglobin 9.1 g/dL (12.0-16.0); Mean Corpuscular Hemoglobin 29.4 pg (25-34); Mean Corpuscular Hgb Conc 30.4 g/dL (32-36); Mean Corpuscular Volume 96.5 fL (80-100); Mean Platelet Volume 10.3 fL (7.4-10.4); Platelet Count 296 K/uL (130-400); RDW Coefficient of Variation 15.2 % (11.5-14.5); RDW Standard Deviation 53.6 fL (36.4-46.3); White Blood Count 13.38 K/uL (4.8-10.8)
[2020-10-26 10:50] LABS: BUN Creatinine Ratio 37.5 (10-20); Calcium 10.1 mg/dl (8.5-10.1); Creatinine Clr Calc Pharmacy 48.8 ml/min; Est GFR (African American) 46.2 ml/min; Est GFR (Non-African American) 39.8 ml/min; Potassium 4.4 mmol/L (3.5-5.1)
[2020-10-26] MEDS ORDERED: FUROSEMIDE 20 MG in SYRINGE 0 ML IV ONE ×2 (11:45→20:04)
[2020-10-26] MEDS: MoRPHine SULFATE 2 MG/ML CARP IV PRN ×2 (12:14→18:06)
[2020-10-26] MEDS: BENZONATATE 100 MG CAPSULE PO SCH ×3 (12:58→19:57)
[2020-10-26] MEDS ORDERED: ONDANSETRON INJ 2 MG/ML 2 ML VIAL ONE (13:16)
[2020-10-26] MEDS: DAPTOmycin 900 MG in SYRINGE 0 ML IV SCH (13:21)
--- NOTE | 2020-10-26 18:08 | Hospitalist Progress Note ---
Date of Service October 26, 2020 Assessment & Plan (1) Acute on chronic respiratory failure with hypoxia and hypercapnia: Aspiration pneumonia patient is a 70-year-old female with past medical history of diastolic heart failure, COPD, anxiety, depression, CKD stage III, hypertension, chronic in dwelling Gonzalez catheter and GERD presented to the ED with shortness of breath and acute on chronic anemia. CXR on admission showed cardiomegaly and radiographic evidence of pulmonary vascular congestion with bilateral pleural effusions. Right upper lobe airspace opacities, pneumonia versus asymmetric edema. CT chest showed multifocal airspace consolidation is seen throughout both lungs. The appearance is typical for pneumonia/aspiration pneumonitis. Small to moderate pleural effusions. Patient is chronically on 2 L of nasal cannula due to COPD On admission was on 3 to 4 L in the hospital however overnight her oxygen requirement increased significantly, to 10 L (10/15) ABG -pH 7.36, PCO2 70, PO2 60, bicarb 39 Repeat CXR on 10/21 showed mild interval improvement/redistribution of bilateral pleural effusion. Unchanged opacities within bilateral lungs which could represent pneumonia. Antibiotics started by lay out former/ertapenem, then switched to cefepime to cover for possible Pseudomonas , added flagyl for anaerobic coverage Also started on vancomycin, obtained MRSA nasal swab - negative Discussed linezolid, however due to patient's medication such as Celexa or nortriptyline, linezolid is contraindicated Guaifenesin, flutter valve and incentive spirometry started Pulmonary medicine consulted, recommend CT chest without contrast, which was ordered MRSA nasal swab negative, Vancomycin was discontinued Switch cefepime and flagyl to zosyn. Cont. to monitor closely resp. status and oxygen requirements which seem to fluctuate between 3 and 7L. Encourage flutter valve, IS. Repeat CXR today showed no change in the diffuse interstitial thickening and right lung airspace opacities. Will add PO Augmentin and continue neb treatment and oxygen supplement 10/26 Possible aspiration pneumonia CXR showed increasing airspace consolidation throughout the right lung, as well as increasing patchy airspace consolidation in the left lung. CT chest showed Multifocal airspace consolidation is again seen throughout both lungs. The appearance is typical for pneumonia/aspiration pneumonitis, and this has increased throughout the right upper lung as compared to 10/15/2020. Case discussed with pulm recommended IV lasix and IV steroid Abx changed from Augmentin to IV Zosyn Continue oxygen supplement Speech therapy evaluation plan for video study on Tuesday I spoke to the son over the phone while in the patient room about patient wants to be comfortable She does not want any procedure or heroic management She understands by getting the IV Dilaudid/morphine that can suppress her respiratory rate causing her breathing to get worse Son said that he has to follow her wishes if she wants to be comfortable Discussed with son that we will continue current treatment with the abx but if patient decompensated or develop any shortness of breath that we will not do any heroic management but to keep her comfortable. Son agreed with the plan. palliative care consulted for goals of care (2) COPD (chronic obstructive pulmonary disease): - cont. home medications and as above (3) Acute on chronic diastolic CHF (congestive heart failure): (4) Elevated troponin: (5) Congestive heart failure: On admission - Chest x-ray with some pulmonary vascular congestion and some right upper lobe airspace opacities patient denied any cough, fever and absence of any leukocytosis. proBNP of 11,000 on admission. Cardiac enzymes were not concerning. Does use 2-3 L of nasal cannula at baseline, on 4 L of nasal cannula on 10/14 Continued with IV Lasix 40 mg twice daily. Continue to monitor ins and outs along with daily weights. Echo obtained, no change compared to previous study in August 2020. Normal LV systolic function without regional wall motion abnormality, EF 60 to 65%. Cardiology consulted - as patient also complained of chest pain. Chest pain seems to be musculoskeletal in origin. Patient did not appear fluid overload and it was recommended that IV Lasix is stopped and patient is restarted on her home p.o. Lasix. We will continue to closely monitor After aspiration event CT chest obtained, which showed consolidation and also pl. effusions, cont. w/ IV lasix and albumin , as above 10/26/20 Chest pain pleuritic and reproducible in nature Mostly costochondritis due to the recent fall Troponin mildly elevated mostly to hypoxic respiratory failure and elevated creatinine and chronic EKG showed no acute ischemic changes Heparin drip was starting by the nocturnal provider Case discussed with cardiology that recommended to discontinue the IV heparin drip No additional cardiac testing needed Continue pain management with IV morphine Pain management consulted (6) GERD (gastroesophageal reflux disease): (7) Anemia: GI bleed H. pylori Acute on chronic blood loss anemia - seen by GI at [facility] and also here -At [facility] presented with with coffee-ground emesis on arrival -At [facility] she underwent EGD (09/22/20), which showed gastritis and small gastric ulcer with no active bleeding. She was found to have H. pylori, and was treated. She finished treatment on October 07 -She is supposed to have a follow-up EGD in 8 weeks to assess ulcer healing (w/ [facility]) -Per [facility] - continue PPI, trend H&H, transfuse as needed, follow up w/ [facility] providers -Patient was transfused in [facility], and she also obtained 2 units of PRBCs here on admission Hgb stable 9.2 (10/20) Monitor H&H, cont. to closely monitor, may require another blood transfusion given her cardiac hx Hgb stable at 9.1 today Fever pt had a fever overnight switch Augmentin back to zosyn obtain blood cultx, CXR, UA/U cultx -pt has pna and recent orthopedic procedure however she has been doing well -she has chronic Gonzalez - concern for UA -loose stools - obtain c. diff -Gonzalez removed - per nursing staff tip of catheter w/ stool -continue with straight cath - obtain CT abdomen/pelvis to eval for possible bladder/bowel fistula -Augmentin changed to IV Zosyn -Continue IV Zosyn (8) Right femoral fracture: -In [facility] underwent right femur removal of hardware. Revision ORIF of right femur. Wound debridement and closure. Placement of antibiotic delivery device. On September 24, 2020, by . -Postop plan at that time was patient will be weightbearing as tolerated on her right lower extremity. She will begin DVT prophylaxis starting the night of postoperative day 0. Orthopedic infectious disease will provide recommendations for antibiotics postoperatively. Will obtain final x-rays of her right femur. Per hospitalist discharge summary, patient was discharged to [facility] -Intraoperative cultures grew 1+ E. faecium and few Staph aureus resistant to oxacillin. Ortho ID was following and recommended daptomycin 900 mg IV daily from September 25 to November 05, 2020. With follow-up CPK weekly, weightbearing of the right lower extremity as tolerated. PICC line was placed for 6 weeks of antibiotics. Following 6 weeks of IV antibiotics, plan will be to indefinitely suppressed with doxycycline monohydrate 100 mg p.o. twice daily due to the presence of extensive hardware in the limb. Lab results to be faxed to ID office at , outpatient follow-up with Ortho ID (Daptomycin dose was confirmed between Ortho ID in [facility] and pharmacist at [facility]) -DVT prophylaxis achieved with Lovenox 40 twice daily for 3 weeks, end date October 14 -Per discharge summary, patient supposed to follow-up with orthopedics, Dr. Kaba, on October 14 - will reschedule follow up -[facility] - can be contacted at -On current admission, R leg - several incisions with sutures in place, one higher up on the thigh another one lateral to the knee -wound care was consulted as well as orthopedics given her extensive history and poorly healing wounds (9) Morbid obesity: - needs counselling (10) Weakness: (11) Depression: (12) Anxiety: - cont home medications - ativan decreased as per nursing staff pt becomes very somnolent w/ meds (13) History of pulmonary embolism: (14) CKD (chronic kidney disease) stage 3, GFR 30-59 ml/min: BLANCO on CKD 3 Possible related to contrast and Lasix CT abd/pelvis showed no hydronephrosis Creatinine 1.3 today Lasix 20mg x1 IV given today Continue monitor BMP (15) Hypertension: (16) Hyperlipidemia: - monitor BP, cont. home meds (17) Chronic indwelling Gonzalez catheter: -Patient was having loose stools after requiring enema and disimpaction for constipation - now has fever (6/), Gonzalez removed and noted stool at the tip of catheter - Negative urine cx - CT abdomen/pelvis showed no bladder/bowel fistula Admission and Anticipated Discharge Date Admission Date: October 13, 2020 Subjective Pt was seen and examined for follow up of chest pain and SOB Lying in bed with no acute distress She said that she continues to have pain in her chest wall worsening with breathing She has been requested for IV Dilaudid [id number] She said that the p.o. oxycodone does not help with the pain She is making comment that she wants to I spoke to the son over the phone while in the patient room about patient wants to be comfortable She does not want any procedure or heroic management She understands by getting the IV Dilaudid that can suppress her respiratory rate causing her breathing to get worse Son said that he has to follow her wishes if she wants to be comfortable Discussed with son that we will continue current treatment with the abx but if patient decompensated or develop any shortness of breath that we will not do any heroic management but to keep her comfortable. Son agreed with the plan Review of Systems Review of Systems: All systems reviewed & are unremarkable except as noted in Subjective Physical Exam Physical Exam: General- No acute distress Head- atraumatic Eyes- PERRL, EOMI, ENT- oropharynx clear Neck- supple, no JVD Lungs- diminished breath sound Heart- regular rhythm; no murmur Abdomen- normal bowel sounds, soft, nontender Extremities- no calf tenderness, moves extremities Neuro- alert, oriented x 3; PERRL, EOMI; no facial palsy; no dysarthria Skin- warm & dry Results & Data Results & Data ([facility]) Vital Signs (Past 12 Hours) Vital Signs Temp Pulse Pulse Resp BP Pulse Ox 10/26/20 17:00 75 10/26/20 15:13 36.7 C 76 20 147/69 H 91 10/26/20 13:09 73 20 91 10/26/20 11:19 36.8 C 81 22 151/57 H 91 10/26/20 08:00 75 10/26/20 07:32 36.5 C 88 24 149/66 H 92 10/26/20 07:05 76 20 94 (1) Congestive heart failure Heart failure chronicity: acute Heart failure type: unspecified Qualified Code(s): I50.9 - Heart failure, unspecified (2) Anemia Anemia type: unspecified type Qualified Code(s): D64.9 - Anemia, unspecified (3) COPD (chronic obstructive pulmonary disease) COPD type: unspecified COPD Qualified Code(s): J44.9 - Chronic obstructive pulmonary disease, unspecified
[2020-10-26] MEDS: MONTELUKAST SODIUM 10 MG TABLET PO SCH (19:57)
[2020-10-26] MEDS: ATORVASTATIN 20 MG TAB PO SCH (19:58)
[2020-10-26] MEDS: ONDANSETRON 2 MG OD TAB PO PRN (20:06)
[2020-10-26] MEDS ORDERED: FUROSEMIDE 40 MG/4 ML VIAL IV ONE (20:15)
[2020-10-26] MEDS: oxyCODONE HCL IR 5 MG TAB (IMMEDIATE RELEASE) PO PRN (21:04)
[2020-10-27] MEDS: MoRPHine SULFATE 2 MG/ML CARP IV PRN ×3 (00:51→21:37)
[2020-10-27] MEDS: oxyCODONE HCL IR 5 MG TAB (IMMEDIATE RELEASE) PO PRN (03:04)
--- NOTE | 2020-10-27 03:50 | Communication Note ---
Date of Service: October 27, 2020 Made aware by RN of patient immediate sedation post administration of morphine 1 mg for chest pain. Hold morphine for now. Will relay to AM provider.
[2020-10-27 04:53] LABS: Hematocrit (blood only) 30.2 % (37-47); Mean Corpuscular Hemoglobin 28.5 pg (25-34); Mean Corpuscular Hgb Conc 29.8 g/dL (32-36); Mean Corpuscular Volume 95.6 fL (80-100); Mean Platelet Volume 10.3 fL (7.4-10.4); Platelet Count 282 K/uL (130-400); RDW Coefficient of Variation 15.1 % (11.5-14.5); RDW Standard Deviation 53.1 fL (36.4-46.3); Red Blood Count 3.16 M/uL (4.2-5.4); White Blood Count 14.98 K/uL (4.8-10.8)
[2020-10-27 05:03] LABS: Partial Thromboplastin Time 25.1 Seconds (21.0-31.0)
[2020-10-27 05:30] LABS: BUN Creatinine Ratio 39.9 (10-20); Calcium 9.6 mg/dl (8.5-10.1); Creatinine Clr Calc Pharmacy 51.9 ml/min; Est GFR (African American) 49.8 ml/min; Est GFR (Non-African American) 42.9 ml/min; Potassium 4.9 mmol/L (3.5-5.1)
[2020-10-27] MEDS: PIPERACILLIN/TAZOBACTAM 4.5 GM in DEXTROSE 5% 100 ML IV SCH ×3 (06:14→21:48)
[2020-10-27] MEDS: ACETAMINOPHEN 1,000 MG/100 ML VIAL IV PRN (06:22)
[2020-10-27] MEDS: LORazepam 1 MG TAB PO PRN ×2 (06:25→12:10)
[2020-10-27] MEDS: LEVALBUTEROL 1.25MG/0.5ML NEB INH SCH ×2 (07:00→19:32)
[2020-10-27] MEDS: IPRATROPIUM BROMIDE NEB SOLN 0.02% 2.5 ML VIAL INH SCH ×2 (07:00→19:32)
[2020-10-27] MEDS: SODIUM CHLOR 7% 4 ML NEB NEB SCH ×2 (07:01→19:32)
[2020-10-27] MEDS: UMECLIDINIUM BROMIDE 62.5MCG/BLISTER 7 PUFFS/INHALER INH SCH ×2 (07:43→07:44)
[2020-10-27] MEDS: ADVANCED PROBIOTIC 1250 MG CAPSULE PO SCH ×3 (07:44→08:20)
[2020-10-27] MEDS: FLUTICASONE/VILANTEROL 100/25MCG 14 PUFFS/INHALER INH SCH (07:44)
[2020-10-27] MEDS ORDERED: MoRPHine SULFATE 2 MG/ML CARP IV PRN (08:03)
[2020-10-27] MEDS ORDERED: FUROSEMIDE 20 MG in SYRINGE 0 ML IV ONE (08:15)
[2020-10-27] MEDS: BENZONATATE 100 MG CAPSULE PO SCH ×3 (08:17→21:49)
[2020-10-27] MEDS: LIDOCAINE 5% 1 PATCH TD SCH (08:20)
[2020-10-27] MEDS: PANTOprazole 40 MG in SYRINGE 0 ML IV SCH ×2 (08:20→21:49)
[2020-10-27] MEDS: methylPREDNISolone 40 MG in SYRINGE 0 ML IV SCH (08:20)
[2020-10-27] MEDS: guaiFENesin 600 MG TABCR PO SCH ×2 (08:20→21:49)
[2020-10-27] MEDS: FERROUS SULFATE 325 MG TAB PO SCH (08:21)
[2020-10-27] MEDS: CHOLECALCIFEROL 1,000 UNITS 25 MCG TAB PO SCH (08:21)
[2020-10-27] MEDS: CITALOPRAM 20 MG TAB PO SCH (08:21)
[2020-10-27] MEDS: MULTIVITAMIN TAB PO SCH (08:21)
[2020-10-27] MEDS: METOPROLOL SUCC 25MG EXT REL TAB PO SCH (08:23)
[2020-10-27] MEDS: ONDANSETRON 2 MG OD TAB PO PRN ×2 (08:24→21:48)
[2020-10-27] MEDS: MICONAZOLE NITRATE POWDER 43 GM EXT SCH ×2 (08:24→21:50)
[2020-10-27] MEDS ORDERED: METOCLOPRAMIDE HCL INJ 5 MG/ML 2 ML VIAL IV STA (10:49)
--- NOTE | 2020-10-27 12:34 | Palliative Care Consultation ---
Date of Consultation October 27, 2020 Assessment & Plan (1) Acute on chronic respiratory failure with hypoxia and hypercapnia: (2) Palliative care encounter: I had an extensive discussion with Jaky and her son, Eduardo at bedside. She is very frustrated with this chronic neuropathic pain that she has which she feels makes life not worth living. She is initially unable to tell me about anything that brings her pleasure in her life. She says that what would make her happy would be to be with her . When we discussed this further, she notes that her sons bring her pleasure. Her frustration is compounded by visual impairment related to macular degeneration which means that she can't watch TV or read books. She does listen to audio books. I discussed my concern that her statement about wanting to may be more related to depression and frustration with her health. She and her son agree with this. We discussed changing her antidepressant to duloxetine and increasing her lorazepam. When I asked her how she pictured her dying time she told me "you can just put me to sleep". I explained to her that we would not do anything to hasten her dying time but that we could discuss whether she wanted to continue her current level of care. At this time, she and Eduardo are in agreement with trying duloxetine and increased lorazepam and continuing current level of care with no escalation of care. Discussed with Dr. Rueda. (3) Congestive heart failure: Heart failure chronicity: acute Heart failure type: unspecified Qualified Code(s): I50.9 - Heart failure, unspecified (4) COPD (chronic obstructive pulmonary disease): COPD type: unspecified COPD Qualified Code(s): J44.9 - Chronic obstructive pulmonary disease, unspecified (5) Pulmonary hypertension: (6) Aspiration pneumonia: History of Present Illness Reason for Consultation: goals of care Requesting Physician: Dr. Rueda Attending Physician: Tesha Rueda MD History of Present Illness 70 yo lady who was admitted on 10/13 with chest pain and anemia. She has a history of diastolic heart failure, NSVT, NSTEMI, CKD III, obesity and COPD. She had been previously hospitalized for right hip fracture and Staph wound infection and was recovering from this prior to admission. During the course of admission, she developed hypoxic respiratory failure with pneumonia/pneumonitis and possible aspiration. She is followed by speech therapy and is scheduled for VFSS today. She remains on high flow O2. She denies feeling short of breath but is very distressed by a chronic burning sensation in her buttocks. She has been seen by pain management at [facility] and did get temporary relief from nerve block. She is on lyrica and has used lidocaine topically in the past. The pain is so persistent and severe that she does not feel that she wants to continue living. She recognizes that her declining health and functional status means that she will not be able to live independently which is also upsetting to her. She has made the statement that she is ready to and we are consulted to assist with goals of care. Allergies Allergy/AdvReac Type Severity Reaction Status Date / Time No Known Allergies Allergy Verified 10/13/20 10:10 Home Medications Medication Instructions Recorded Confirmed Type ergocalciferol (vitamin D2) 50,000 unit PO WK 10/07/18 10/13/20 History [Vitamin D2] furosemide [Lasix] 20 mg PO BID 10/07/18 10/13/20 History montelukast [Singulair] 10 mg PO HS 10/07/18 10/13/20 History pantoprazole [Protonix] 40 mg PO QAM 10/07/18 10/13/20 History trazodone 50 mg PO HS 10/07/18 10/13/20 History metoprolol succinate [Toprol XL] 25 mg PO QAM 04/30/19 10/13/20 History aspirin 81 mg PO QAM 06/14/19 10/13/20 History lorazepam [Ativan] 1 mg PO TID PRN 07/13/20 10/13/20 History ascorbic acid (vitamin C) 500 mg 500 mg PO BID 08/27/20 10/13/20 History tablet citalopram 20 mg tablet 10 mg PO QAM tab 08/27/20 10/13/20 History guaifenesin 100 mg/5 mL oral liquid 100 mg PO Q4H PRN ml 08/27/20 10/13/20 History multivitamin 1 tab PO QAM 09/01/20 10/13/20 History Trelegy Ellipta 1 inh INHALATION QAM 09/13/20 10/13/20 History ondansetron HCl 4 mg PO Q6H PRN 09/13/20 10/13/20 History acetaminophen 650 mg PO Q4H PRN 10/13/20 10/13/20 History amitriptyline 25 mg PO HS 10/13/20 10/13/20 History atorvastatin 20 mg PO HS 10/13/20 10/13/20 History bisacodyl 10 mg VT DAILY PRN 10/13/20 10/13/20 History cholecalciferol (vitamin D3) 125 mcg PO DAILY 10/13/20 10/13/20 History [Vitamin D3] daptomycin 900 mg IV DAILY 10/13/20 10/13/20 History docusate sodium 100 mg PO BID 10/13/20 10/13/20 History enoxaparin [Lovenox] 40 mg SUBCUT Q12H 10/13/20 10/13/20 History ferrous sulfate 325 mg PO DAILY 10/13/20 10/13/20 History hydromorphone 1 mg PO Q4H PRN 10/13/20 10/13/20 History ipratropium-albuterol [Combivent 1 puff INHALATION QID PRN 10/13/20 10/13/20 H istory Respimat] lidocaine 5 % topical patch 1 patch TOPICAL DAILY ea 10/13/20 History lisinopril 5 mg PO DAILY 10/13/20 10/13/20 History magnesium hydroxide [Milk of 30 ml PO DAILY PRN 10/13/20 10/13/20 History Magnesia] naloxone [Narcan] 0.1 mg INTRANASAL UD 10/13/20 10/13/20 History polyethylene glycol 3350 [Miralax] 17 g PO DAILY PRN 10/13/20 10/13/20 History pregabalin 150 mg PO TID 10/13/20 10/13/20 History sennosides-docusate sodium 1 tab-cap PO DAILY PRN 10/13/20 10/13/20 History [Senokot-S] simethicone 80 mg PO TID PRN 10/13/20 10/13/20 History sodium phosphates [Fleet Enema] 118 ml VT DAILY PRN 10/13/20 10/13/20 History Patient History Medical History (Updated 10/27/20 @ 12:36 by Farnaz Edwards MD) Anxiety Chest pain Chronic indwelling Gonzalez catheter CKD (chronic kidney disease) stage 3, GFR 30-59 ml/min Baseline creatine around 1.2 COPD (chronic obstructive pulmonary disease) on 3 liters of oxygen per records Depression Diastolic CHF due to valvular disease GERD (gastroesophageal reflux disease) History of pulmonary embolism 2013 Hyperlipidemia Hypertension Lumbar radiculopathy Macular degeneration Moderate aortic stenosis Per 07/14/20 ECHO: PATO 1.3-1.6 cm; AV peak velocity 3.52 m/s; AV mean gradient 21.1 mmHg Morbid obesity Poor vision Recurrent UTI Urinary retention with incomplete bladder emptying Wheezing Surgical History History of cholecystectomy History of hysterectomy History of right knee surgery History of surgery Right distal femur periprosthetic open reduction 07/14/20 and right femur I&D History of total left knee replacement History of total right hip arthroplasty History of total right knee replacement Family History Other Cancer Social History Smoking Status: Former smoker Second Hand Exposure: No; Do You Dip or Chew Tobacco: No; Tobacco Cessation Education Requested by Patient: No Hx Alcohol Use: No Hx Substance Use: No Preferred Language: Faroese Communication Ability: Effective Oracle Application Architect Required: No Beliefs That Will Affect Care: None marital status: / Current Living Situation: Alone Current Living Situation Comment: [place] resident current occupational status: retired Other Information That Helps Us Care for You: No Feels Safe at Home: No Is there a partner from a previous relationship who is making you feel unsafe now?: No Any Concerns about Your Family Situation: No Would You Like to Speak to Someone About Your Situation: No Safety Concerns: Feels Safe At This Time Assistive Devices: BiPap and Oxygen - Continuous Review of Systems Review of Systems: [place] Symptom Assessment Scale Pain 3/3 Dyspnea 1/3 Nausea 0/3 Anxiety 3/3 Fatigue 2/3 Palliative Performance Score 30% Physical Exam Constitutional: no acute distress Respiratory: no labored breathing Skin: no sacral rash or skin breakdown Psychiatric: Orientation: alert and oriented x 3 Eye Contact: good eye contact Affect: + anxious affect Mood: + depressed mood Results & Data ([facility]) Vital Signs (Past 12 Hours) Vital Signs Temp Pulse Pulse Pulse Resp BP Pulse Ox 10/27/20 11:30 74 19 126/55 L 94 10/27/20 08:00 74 10/27/20 07:28 98.1 F 84 20 130/61 89 L 10/27/20 04:21 98.2 F 74 20 146/73 H 90 10/27/20 01:20 74 PG Care Time/CCT Total # of Minutes Spent Total Time Spent with Patient: Total time spent is greater than 50% in coordination of care (as documented) at patient's floor/unit and/or counseling patient: total time spent 75 minutes with more than 50% of time spent on goals of care, symptom management, patient education and support. Coding Level of Care Code 98696 Inpt Consult Level 4 Diagnoses Acute on chronic respiratory failure with hypoxia and hypercapnia J96.21; J96.22 Palliative care encounter Z51.5 Congestive heart failure I50.9 Heart failure chronicity: acute Heart failure type: unspecified COPD (chronic obstructive pulmonary disease) J44.9 COPD type: unspecified COPD Pulmonary hypertension I27.20 Aspiration pneumonia J69.0
[2020-10-27] MEDS: DAPTOmycin 900 MG in SYRINGE 0 ML IV SCH (14:02)
--- NOTE | 2020-10-27 15:07 | Fluoroscopy Report ---
FL video swallow HISTORY: assess for silent aspiration TECHNIQUE: Video fluoroscopic evaluation of swallowing was performed in the AP and lateral projection s by the speech pathology staff. The patient is fed nectar-thick and thin liquid barium, a barium coa larry wafer, and barium pudding. FLUOROSCOPY TIME: 1.7 minutes. NUMBER OF FLUOROSCOPY IMAGES: 0 COMPARISON STUDY: None. FINDINGS: There is premature vallecular leakage. There is no evidence of aspiration or penetration. IMPRESSION: 1. No aspiration identified. 2. Please see the speech pathologist report for detailed findings and recommendations. ACT 112: Negative or not required by law. Electronically signed by: Rakan Azul M.D. 10/27/2020 3:06 PM
[2020-10-27] MEDS: LORazepam 0.5 MG TAB PO PRN (17:58)
--- NOTE | 2020-10-27 18:46 | Hospitalist Progress Note ---
Date of Service October 27, 2020 Assessment & Plan (1) Acute on chronic respiratory failure with hypoxia and hypercapnia: Aspiration pneumonia patient is a 70-year-old female with past medical history of diastolic heart failure, COPD, anxiety, depression, CKD stage III, hypertension, chronic in dwelling Gonzalez catheter and GERD presented to the ED with shortness of breath and acute on chronic anemia. CXR on admission showed cardiomegaly and radiographic evidence of pulmonary vascular congestion with bilateral pleural effusions. Right upper lobe airspace opacities, pneumonia versus asymmetric edema. CT chest showed multifocal airspace consolidation is seen throughout both lungs. The appearance is typical for pneumonia/aspiration pneumonitis. Small to moderate pleural effusions. Patient is chronically on 2 L of nasal cannula due to COPD On admission was on 3 to 4 L in the hospital however overnight her oxygen requirement increased significantly, to 10 L (10/15) ABG -pH 7.36, PCO2 70, PO2 60, bicarb 39 Repeat CXR on 10/21 showed mild interval improvement/redistribution of bilateral pleural effusion. Unchanged opacities within bilateral lungs which could represent pneumonia. Antibiotics started by therapist asst/ertapenem, then switched to cefepime to cover for possible Pseudomonas , added flagyl for anaerobic coverage Also started on vancomycin, obtained MRSA nasal swab - negative Discussed linezolid, however due to patient's medication such as Celexa or nortriptyline, linezolid is contraindicated Guaifenesin, flutter valve and incentive spirometry started Pulmonary medicine consulted, recommend CT chest without contrast, which was ordered MRSA nasal swab negative, Vancomycin was discontinued Switch cefepime and flagyl to zosyn. Cont. to monitor closely resp. status and oxygen requirements which seem to fluctuate between 3 and 7L. Encourage flutter valve, IS. Repeat CXR today showed no change in the diffuse interstitial thickening and right lung airspace opacities. Will add PO Augmentin and continue neb treatment and oxygen supplement 10/27/20 Possible aspiration pneumonia CXR showed increasing airspace consolidation throughout the right lung, as well as increasing patchy airspace consolidation in the left lung. CT chest showed Multifocal airspace consolidation is again seen throughout both lungs. The appearance is typical for pneumonia/aspiration pneumonitis, and this has increased throughout the right upper lung as compared to 10/15/2020. Case discussed with pulm recommended IV lasix and IV steroid Abx changed from Augmentin to IV Zosyn Pulm recommended 7 days of abx course for the pneumonia Continue oxygen supplement Video swallow showed no aspiration identified. Will transition to PO steroid palliative care consulted for goal of care (2) COPD (chronic obstructive pulmonary disease): - cont. home medications and as above (3) Acute on chronic diastolic CHF (congestive heart failure): (4) Elevated troponin: (5) Congestive heart failure: On admission - Chest x-ray with some pulmonary vascular congestion and some right upper lobe airspace opacities patient denied any cough, fever and absence of any leukocytosis. proBNP of 11,000 on admission. Cardiac enzymes were not concerning. Does use 2-3 L of nasal cannula at baseline, on 4 L of nasal cannula on 10/14 Continued with IV Lasix 40 mg twice daily. Continue to monitor ins and outs along with daily weights. Echo obtained, no change compared to previous study in August 2020. Normal LV systolic function without regional wall motion abnormality, EF 60 to 65%. Cardiology consulted - as patient also complained of chest pain. Chest pain seems to be musculoskeletal in origin. Patient did not appear fluid overload and it was recommended that IV Lasix is stopped and patient is restarted on her home p.o. Lasix. We will continue to closely monitor After aspiration event CT chest obtained, which showed consolidation and also pl. effusions, cont. w/ IV lasix and albumin , as above 10/26/20 Chest pain pleuritic and reproducible in nature Mostly costochondritis due to the recent fall Troponin mildly elevated mostly to hypoxic respiratory failure and elevated creatinine and chronic EKG showed no acute ischemic changes Heparin drip was starting by the nocturnal provider Case discussed with cardiology that recommended to discontinue the IV heparin drip No additional cardiac testing needed Speech recommended slippery diet with thin liquid Continue pain management with IV morphine Pain management consulted (6) GERD (gastroesophageal reflux disease): (7) Anemia: GI bleed H. pylori Acute on chronic blood loss anemia - seen by GI at [facility] and also here -At [place] presented with with coffee-ground emesis on arrival -At [place] she underwent EGD (09/22/20), which showed gastritis and small gastric ulcer with no active bleeding. She was found to have H. pylori, and was treated. She finished treatment on October 07 -She is supposed to have a follow-up EGD in 8 weeks to assess ulcer healing (w/ [place] [facility]) -Per [facility] - continue PPI, trend H&H, transfuse as needed, follow up w/ [place] providers -Patient was transfused in [place], and she also obtained 2 units of PRBCs here on admission Hgb stable 9.2 (10/20) Monitor H&H, cont. to closely monitor, may require another blood transfusion given her cardiac hx Hgb stable at 9.0 today Fever pt had a fever overnight switch Augmentin back to zosyn obtain blood cultx, CXR, UA/U cultx -pt has pna and recent orthopedic procedure however she has been doing well -she has chronic Gonzalez - concern for UA -loose stools - obtain c. diff -Gonzalez removed - per nursing staff tip of catheter w/ stool -continue with straight cath - obtain CT abdomen/pelvis to eval for possible bladder/bowel fistula -Augmentin changed to IV Zosyn -Continue IV Zosyn Elevated WBC Mostly related to steroid Currently on IV Zosyn (8) Right femoral fracture: -In [place] underwent right femur removal of hardware. Revision ORIF of right femur. Wound debridement and closure. Placement of antibiotic delivery device. On September 24, 2020, by . -Postop plan at that time was patient will be weightbearing as tolerated on her right lower extremity. She will begin DVT prophylaxis starting the night of postoperative day 0. Orthopedic infectious disease will provide recommendations for antibiotics postoperatively. Will obtain final x-rays of her right femur. Per hospitalist discharge summary, patient was discharged to [facility] -Intraoperative cultures grew 1+ E. faecium and few Staph aureus resistant to oxacillin. Ortho ID was following and recommended daptomycin 900 mg IV daily from September 25 to November 05, 2020. With follow-up CPK weekly, weightbearing of the right lower extremity as tolerated. PICC line was placed for 6 weeks of antibiotics. Following 6 weeks of IV antibiotics, plan will be to indefinitely suppressed with doxycycline monohydrate 100 mg p.o. twice daily due to the presence of extensive hardware in the limb. Lab results to be faxed to ID office at , outpatient follow-up with Ortho ID (Daptomycin dose was confirmed between Ortho ID in [place] and pharmacist at [facility]) -DVT prophylaxis achieved with Lovenox 40 twice daily for 3 weeks, end date October 14 -Per discharge summary, patient supposed to follow-up with orthopedics, Dr. Kaba, on October 14 - will reschedule follow up -[facility] - can be contacted at -On current admission, R leg - several incisions with sutures in place, one higher up on the thigh another one lateral to the knee -wound care was consulted as well as orthopedics given her extensive history and poorly healing wounds (9) Morbid obesity: - needs counselling (10) Weakness: (11) Depression: (12) Anxiety: - cont home medications - ativan decreased as per nursing staff pt becomes very somnolent w/ meds (13) History of pulmonary embolism: (14) CKD (chronic kidney disease) stage 3, GFR 30-59 ml/min: BLANCO on CKD 3 Possible related to contrast and Lasix CT abd/pelvis showed no hydronephrosis Creatinine 1.25 today Lasix 20mg x1 IV given today Has been diuresis well Continue monitor BMP (15) Hypertension: (16) Hyperlipidemia: - monitor BP, cont. home meds (17) Chronic indwelling Gonzalez catheter: -Patient was having loose stools after requiring enema and disimpaction for constipation - now has fever (10/21), Gonzalez removed and noted stool at the tip of catheter - Negative urine cx - CT abdomen/pelvis showed no bladder/bowel fistula Admission and Anticipated Discharge Date Admission Date: October 13, 2020 Subjective Pt was seen and examined for follow up of chest pain and SOB Lying in bed with no acute distress Pt is breathing much better today She continues to complaint about pain and asking for pain med She met with palliative care today She is expressed very frustrated with this chronic neuropathic pain that she has which she feels makes life not worth living. She would like her diet to advance Review of Systems Review of Systems: All systems reviewed & are unremarkable except as noted in Subjective Physical Exam Physical Exam: General- No acute distress Head- atraumatic Eyes- PERRL, EOMI, ENT- oropharynx clear Neck- supple, no JVD Lungs- diminished breath sound Heart- regular rhythm; no murmur Abdomen- normal bowel sounds, soft, nontender Extremities- no calf tenderness, moves extremities Neuro- alert, oriented x 3; PERRL, EOMI; no facial palsy; no dysarthria Skin- warm & dry Results & Data Results & Data ([facility]) Vital Signs (Past 12 Hours) Vital Signs Temp Pulse Pulse Pulse Resp BP Pulse Ox 10/27/20 16:00 75 10/27/20 11:30 74 19 126/55 L 94 10/27/20 08:00 74 10/27/20 07:28 36.7 C 84 20 130/61 89 L (1) Congestive heart failure Heart failure chronicity: acute Heart failure type: unspecified Qualified Code(s): I50.9 - Heart failure, unspecified (2) Anemia Anemia type: unspecified type Qualified Code(s): D64.9 - Anemia, unspecified (3) COPD (chronic obstructive pulmonary disease) COPD type: unspecified COPD Qualified Code(s): J44.9 - Chronic obstructive pulmonary disease, unspecified
[2020-10-27] MEDS ORDERED: FUROSEMIDE 20 MG TAB PO ONE (20:00)
[2020-10-27] MEDS: traZODone HCL 50 MG TAB PO SCH (21:48)
[2020-10-27] MEDS: PREGABALIN 100 MG CAP PO SCH (21:49)
[2020-10-27] MEDS: MONTELUKAST SODIUM 10 MG TABLET PO SCH (21:49)
[2020-10-27] MEDS: ATORVASTATIN 20 MG TAB PO SCH (21:50)
--- NOTE | 2020-10-27 22:24 | Electrocardiogram Report ---
Test Reason : Blood Pressure : / mmHG Vent. Rate : 077 BPM Atrial Rate : 077 BPM P-R Int : 170 ms QRS Dur : 096 ms QT Int : 382 ms P-R-T Axes : 056 043 053 degrees QTc Int : 432 ms Normal sinus rhythm ST elevation, consider early repolarization Borderline ECG When compared with ECG of 24-OCT-2020 23:23, No significant change was found Confirmed by Ankit Silver ([id number]) on 10/27/2020 10:24:49 PM Referred By: [facility] Confirmed By:Ankit Silver
[2020-10-27] MEDS: AMITRIPTYLINE HCL 25 MG TAB PO SCH (23:31)
[2020-10-28] MEDS: LORazepam 0.5 MG TAB PO PRN ×2 (03:16→10:15)
[2020-10-28] MEDS: PIPERACILLIN/TAZOBACTAM 4.5 GM in DEXTROSE 5% 100 ML IV SCH ×3 (06:38→22:15)
[2020-10-28] MEDS: IPRATROPIUM BROMIDE NEB SOLN 0.02% 2.5 ML VIAL INH SCH ×2 (07:11→20:33)
[2020-10-28] MEDS: LEVALBUTEROL 1.25MG/0.5ML NEB INH SCH ×2 (07:11→20:33)
[2020-10-28] MEDS: SODIUM CHLOR 7% 4 ML NEB NEB SCH ×2 (07:11→20:33)
[2020-10-28] MEDS: MoRPHine SULFATE 2 MG/ML CARP IV PRN ×2 (07:25→21:50)
[2020-10-28] MEDS: MULTIVITAMIN TAB PO SCH (07:31)
[2020-10-28] MEDS: CHOLECALCIFEROL 1,000 UNITS 25 MCG TAB PO SCH (07:31)
[2020-10-28] MEDS: PANTOprazole 40 MG in SYRINGE 0 ML IV SCH ×2 (07:31→21:50)
[2020-10-28] MEDS: guaiFENesin 600 MG TABCR PO SCH ×2 (07:31→21:51)
[2020-10-28] MEDS: ADVANCED PROBIOTIC 1250 MG CAPSULE PO SCH (07:31)
[2020-10-28] MEDS: BENZONATATE 100 MG CAPSULE PO SCH ×3 (07:32→21:51)
[2020-10-28] MEDS: METOPROLOL SUCC 25MG EXT REL TAB PO SCH (07:32)
[2020-10-28] MEDS: FERROUS SULFATE 325 MG TAB PO SCH (07:32)
[2020-10-28] MEDS: LIDOCAINE 5% 1 PATCH TD SCH (07:33)
[2020-10-28] MEDS: DULoxetine HCL 20 MG CAP PO SCH (07:33)
[2020-10-28] MEDS: FLUTICASONE/VILANTEROL 100/25MCG 14 PUFFS/INHALER INH SCH (07:34)
[2020-10-28 09:09] LABS: Hematocrit (blood only) 31.9 % (37-47); Hemoglobin 9.5 g/dL (12.0-16.0); Mean Corpuscular Hemoglobin 28.5 pg (25-34); Mean Corpuscular Hgb Conc 29.8 g/dL (32-36); Mean Corpuscular Volume 95.8 fL (80-100); Mean Platelet Volume 10.3 fL (7.4-10.4); Platelet Count 257 K/uL (130-400); RDW Coefficient of Variation 15.2 % (11.5-14.5); RDW Standard Deviation 53.5 fL (36.4-46.3); Red Blood Count 3.33 M/uL (4.2-5.4); White Blood Count 13.06 K/uL (4.8-10.8)
[2020-10-28 09:42] LABS: BUN Creatinine Ratio 35.3 (10-20); Calcium 10.1 mg/dl (8.5-10.1); Est GFR (African American) 47.5 ml/min; Potassium 3.8 mmol/L (3.5-5.1)
[2020-10-28] MEDS: PREGABALIN 100 MG CAP PO SCH ×2 (10:14→21:52)
[2020-10-28] MEDS: FUROSEMIDE 20 MG TAB PO SCH ×2 (10:14→18:21)
[2020-10-28] MEDS: predniSONE 20 MG TAB PO SCH (10:14)
[2020-10-28] MEDS: oxyCODONE HCL IR 5 MG TAB (IMMEDIATE RELEASE) PO PRN (10:15)
[2020-10-28] MEDS: MICONAZOLE NITRATE POWDER 43 GM EXT SCH ×2 (10:15→21:52)
--- NOTE | 2020-10-28 10:29 | Progress Notes ---
DATE: 10/28/2020 The patient is resting in bed. Hospitalist and Palliative Care notes are reviewed. A Palliative Care consultation has been obtained. The patient expresses that she is not very happy with her current situation. She has burning neuropathic pain in her posterior. Poor vision. Her chest hurts. She has pneumonia. There are a lot of things going against her. She really would enjoy a shower and we have encouraged her to try to move her arms and legs, bend her knee and get out of bed and do PT. Those little steps may enable her to get into shower, which would really make her feel better. Her incisions on the right leg are healed. There is no significant erythema or drainage. There is some induration on the distal lateral right leg incision. There is some mild tenderness of the thigh area. She is able to do a leg lift and can bend her knee about 80 degrees. At this time, she is encouraged to be doing leg lifts, knee bending, getting up with PT and progressing weightbearing as tolerated. We will continue to monitor while she is here in the hospital. If she is discharged to a long term facility. She can follow up with me in my office or with Dr. Kaba at [facility] in approximately 3 weeks, i.e., the end of October. Her laboratory studies show an elevated white blood cell count and a hematocrit of 32. This is likely secondary to her pneumonia. She should continue on her antibiotics as per the recommendations of Dr. Kaba and [facility].
[2020-10-28] MEDS: DAPTOmycin 900 MG in SYRINGE 0 ML IV SCH (13:22)
[2020-10-28] MEDS: ACETAMINOPHEN 325 MG TAB PO PRN (13:40)
[2020-10-28] MEDS ORDERED: FUROSEMIDE 40 MG in SYRINGE 0 ML IV ONE (18:48)
--- NOTE | 2020-10-28 19:16 | Hospitalist Progress Note ---
Date of Service October 28, 2020 Assessment & Plan (1) Acute on chronic respiratory failure with hypoxia and hypercapnia: Aspiration pneumonia patient is a 70-year-old female with past medical history of diastolic heart failure, COPD, anxiety, depression, CKD stage III, hypertension, chronic in dwelling Gonzalez catheter and GERD presented to the ED with shortness of breath and acute on chronic anemia. CXR on admission showed cardiomegaly and radiographic evidence of pulmonary vascular congestion with bilateral pleural effusions. Right upper lobe airspace opacities, pneumonia versus asymmetric edema. CT chest showed multifocal airspace consolidation is seen throughout both lungs. The appearance is typical for pneumonia/aspiration pneumonitis. Small to moderate pleural effusions. Patient is chronically on 2 L of nasal cannula due to COPD On admission was on 3 to 4 L in the hospital however overnight her oxygen requirement increased significantly, to 10 L (10/15) ABG -pH 7.36, PCO2 70, PO2 60, bicarb 39 Repeat CXR on 10/21 showed mild interval improvement/redistribution of bilateral pleural effusion. Unchanged opacities within bilateral lungs which could represent pneumonia. Antibiotics started by overedge sewer/ertapenem, then switched to cefepime to cover for possible Pseudomonas , added flagyl for anaerobic coverage Also started on vancomycin, obtained MRSA nasal swab - negative Discussed linezolid, however due to patient's medication such as Celexa or nortriptyline, linezolid is contraindicated Guaifenesin, flutter valve and incentive spirometry started Pulmonary medicine consulted, recommend CT chest without contrast, which was ordered MRSA nasal swab negative, Vancomycin was discontinued Switch cefepime and flagyl to zosyn. Cont. to monitor closely resp. status and oxygen requirements which seem to fluctuate between 3 and 7L. Encourage flutter valve, IS. Repeat CXR today showed no change in the diffuse interstitial thickening and right lung airspace opacities. Will add PO Augmentin and continue neb treatment and oxygen supplement 10/28/20 Possible aspiration pneumonia CXR showed increasing airspace consolidation throughout the right lung, as well as increasing patchy airspace consolidation in the left lung. CT chest showed Multifocal airspace consolidation is again seen throughout both lungs. The appearance is typical for pneumonia/aspiration pneumonitis, and this has increased throughout the right upper lung as compared to 10/15/2020. Case discussed with pulm recommended IV lasix and IV steroid Abx changed from Augmentin to IV Zosyn Pulm recommended 7 days of abx course for the pneumonia Continue oxygen supplement Video swallow showed no aspiration identified. Continue PO prednisone for 3 more days palliative care on board for goal of care (2) COPD (chronic obstructive pulmonary disease): - cont. home medications and as above (3) Acute on chronic diastolic CHF (congestive heart failure): (4) Elevated troponin: (5) Congestive heart failure: On admission - Chest x-ray with some pulmonary vascular congestion and some right upper lobe airspace opacities patient denied any cough, fever and absence of any leukocytosis. proBNP of 11,000 on admission. Cardiac enzymes were not concerning. Does use 2-3 L of nasal cannula at baseline, on 4 L of nasal cannula on 10/14 Continued with IV Lasix 40 mg twice daily. Continue to monitor ins and outs along with daily weights. Echo obtained, no change compared to previous study in August 2020. Normal LV systolic function without regional wall motion abnormality, EF 60 to 65%. Cardiology consulted - as patient also complained of chest pain. Chest pain seems to be musculoskeletal in origin. Patient did not appear fluid overload and it was recommended that IV Lasix is stopped and patient is restarted on her home p.o. Lasix. We will continue to closely monitor After aspiration event CT chest obtained, which showed consolidation and also pl. effusions, cont. w/ IV lasix and albumin , as above 10/28/20 Chest pain pleuritic and reproducible in nature Mostly costochondritis due to the recent fall Troponin mildly elevated mostly to hypoxic respiratory failure and elevated cr eatinine and chronic EKG showed no acute ischemic changes Heparin drip was starting by the nocturnal provider Case discussed with cardiology that recommended to discontinue the IV heparin drip No additional cardiac testing needed Continue Lasix Speech recommended slippery diet with thin liquid Continue pain management with IV morphine (6) GERD (gastroesophageal reflux disease): (7) Anemia: GI bleed H. pylori Acute on chronic blood loss anemia - seen by GI at [facility] and also here -At [place] presented with with coffee-ground emesis on arrival -At [place] she underwent EGD (09/22/20), which showed gastritis and small gastric ulcer with no active bleeding. She was found to have H. pylori, and was treated. She finished treatment on October 07 -She is supposed to have a follow-up EGD in 8 weeks to assess ulcer healing (w/ [facility]) -Per [facility] - continue PPI, trend H&H, transfuse as needed, follow up w/ [place] providers -Patient was transfused in [place], and she also obtained 2 units of PRBCs here on admission Hgb stable 9.2 (10/20) Monitor H&H, cont. to closely monitor, may require another blood transfusion given her cardiac hx Hgb stable at 9.0 today Fever pt had a fever overnight switch Augmentin back to zosyn obtain blood cultx, CXR, UA/U cultx -pt has pna and recent orthopedic procedure however she has been doing well -she has chronic Gonzalez - concern for UA -loose stools - obtain c. diff -Gonzalez removed - per nursing staff tip of catheter w/ stool -continue with straight cath - obtain CT abdomen/pelvis to eval for possible bladder/bowel fistula -Augmentin changed to IV Zosyn -Continue IV Zosyn Elevated WBC Mostly related to steroid Currently on IV Zosyn and Dapto (8) Right femoral fracture: -In [place] underwent right femur removal of hardware. Revision ORIF of right femur. Wound debridement and closure. Placement of antibiotic delivery device. On September 24, 2020, by . -Postop plan at that time was patient will be weightbearing as tolerated on her right lower extremity. She will begin DVT prophylaxis starting the night of postoperative day 0. Orthopedic infectious disease will provide recommendations for antibiotics postoperatively. Will obtain final x-rays of her right femur. Per hospitalist discharge summary, patient was discharged to [facility] -Intraoperative cultures grew 1+ E. faecium and few Staph aureus resistant to oxacillin. Ortho ID was following and recommended daptomycin 900 mg IV daily from September 25 to November 05, 2020. With follow-up CPK weekly, weightbearing of the right lower extremity as tolerated. PICC line was placed for 6 weeks of antibiotics. Following 6 weeks of IV antibiotics, plan will be to indefinitely suppressed with doxycycline monohydrate 100 mg p.o. twice daily due to the pres ence of extensive hardware in the limb. Lab results to be faxed to ID office at , outpatient follow-up with Ortho ID (Daptomycin dose was confirmed between Ortho ID in [place] and pharmacist at [facility]) -DVT prophylaxis achieved with Lovenox 40 twice daily for 3 weeks, end date October 14 -Per discharge summary, patient supposed to follow-up with orthopedics, Dr. Tim quiñonez, on October 14 - will reschedule follow up -[facility] - can be contacted at -On current admission, R leg - several incisions with sutures in place, one higher up on the thigh another one lateral to the knee -wound care was consulted as well as orthopedics given her extensive history and poorly healing wounds (9) Morbid obesity: - needs counselling (10) Weakness: (11) Depression: (12) Anxiety: - cont home medications - ativan decreased as per nursing staff pt becomes very somnolent w/ meds (13) History of pulmonary embolism: (14) CKD (chronic kidney disease) stage 3, GFR 30-59 ml/min: BLANCO on CKD 3 Possible related to contrast and Lasix CT abd/pelvis showed no hydronephrosis Creatinine 1.25 today Lasix 40mg x1 IV given today Has been diuresis well Continue monitor BMP (15) Hypertension: (16) Hyperlipidemia: - monitor BP, cont. home meds (17) Chronic indwelling Gonzalez catheter: -Patient was having loose stools after requiring enema and disimpaction for constipation - now has fever (10/21), Gonzalez removed and noted stool at the tip of catheter - Negative urine cx - CT abdomen/pelvis showed no bladder/bowel fistula Admission and Anticipated Discharge Date Admission Date: October 13, 2020 Subjective Pt was seen and examined for follow up of chest pain and SOB Lying in bed with no acute distress Pt said that she feels much better She said that her pain is better control She said that she does not have any appetite Denies any chest pain, palpitation, dizziness and SOB Review of Systems Review of Systems: All systems reviewed & are unremarkable except as noted in Subjective Physical Exam Physical Exam: General- No acute distress Head- atraumatic Eyes- PERRL, EOMI, ENT- oropharynx clear Neck- supple, no JVD Lungs- diminished breath sound Heart- regular rhythm; no murmur Abdomen- normal bowel sounds, soft, nontender Extremities- no calf tenderness, moves extremities Neuro- alert, oriented x 3; PERRL, EOMI; no facial palsy; no dysarthria Skin- warm & dry Results & Data Results & Data ([facility]) Vital Signs (Past 12 Hours) Vital Signs Temp Pulse Pulse Pulse Resp BP Pulse Ox 10/28/20 18:24 79 10/28/20 13:30 37 C 70 22 128/77 89 L 10/28/20 08:00 84 10/28/20 07:45 36.9 C 86 19 134/66 89 L (1) Congestive heart failure Heart failure chronicity: acute Heart failure type: unspecified Qualified Code(s): I50.9 - Heart failure, unspecified (2) Anemia Anemia type: unspecified type Qualified Code(s): D64.9 - Anemia, unspecified (3) COPD (chronic obstructive pulmonary disease) COPD type: unspecified COPD Qualified Code(s): J44.9 - Chronic obstructive pulmonary disease, unspecified
[2020-10-28] MEDS: ATORVASTATIN 20 MG TAB PO SCH (21:51)
[2020-10-28] MEDS: AMITRIPTYLINE HCL 25 MG TAB PO SCH (21:51)
[2020-10-28] MEDS: MONTELUKAST SODIUM 10 MG TABLET PO SCH (21:52)
[2020-10-28] MEDS: traZODone HCL 50 MG TAB PO SCH (21:52)
[2020-10-29] MEDS: LORazepam 0.5 MG TAB PO PRN ×2 (03:23→14:32)
[2020-10-29] MEDS: PIPERACILLIN/TAZOBACTAM 4.5 GM in DEXTROSE 5% 100 ML IV SCH ×3 (06:24→21:25)
[2020-10-29] MEDS: IPRATROPIUM BROMIDE NEB SOLN 0.02% 2.5 ML VIAL INH SCH ×2 (06:56→19:24)
[2020-10-29] MEDS: LEVALBUTEROL 1.25MG/0.5ML NEB INH SCH ×2 (06:56→19:24)
[2020-10-29] MEDS: SODIUM CHLOR 7% 4 ML NEB NEB SCH ×2 (06:56→19:25)
[2020-10-29] MEDS: MoRPHine SULFATE 2 MG/ML CARP IV PRN ×2 (07:30→20:48)
[2020-10-29] MEDS: PANTOprazole 40 MG in SYRINGE 0 ML IV SCH ×2 (07:31→21:51)
[2020-10-29] MEDS: guaiFENesin 600 MG TABCR PO SCH ×3 (07:31→20:51)
[2020-10-29] MEDS: FUROSEMIDE 20 MG TAB PO SCH ×2 (07:31→16:51)
[2020-10-29] MEDS: BENZONATATE 100 MG CAPSULE PO SCH ×3 (07:33→20:50)
[2020-10-29] MEDS: DULoxetine HCL 20 MG CAP PO SCH (07:33)
[2020-10-29] MEDS: ADVANCED PROBIOTIC 1250 MG CAPSULE PO SCH ×2 (07:33→07:37)
[2020-10-29] MEDS: ONDANSETRON 2 MG OD TAB PO PRN (07:34)
[2020-10-29] MEDS: CHOLECALCIFEROL 1,000 UNITS 25 MCG TAB PO SCH (07:34)
[2020-10-29] MEDS: predniSONE 20 MG TAB PO SCH (07:35)
[2020-10-29] MEDS: METOPROLOL SUCC 25MG EXT REL TAB PO SCH (07:35)
[2020-10-29] MEDS: FERROUS SULFATE 325 MG TAB PO SCH (07:35)
[2020-10-29] MEDS: FLUTICASONE/VILANTEROL 100/25MCG 14 PUFFS/INHALER INH SCH (07:36)
[2020-10-29] MEDS: MULTIVITAMIN TAB PO SCH (07:36)
[2020-10-29] MEDS: UMECLIDINIUM BROMIDE 62.5MCG/BLISTER 7 PUFFS/INHALER INH SCH (07:36)
[2020-10-29] MEDS: MICONAZOLE NITRATE POWDER 43 GM EXT SCH ×2 (07:37→20:52)
[2020-10-29] MEDS: LIDOCAINE 5% 1 PATCH TD SCH (07:37)
[2020-10-29] MEDS: PREGABALIN 100 MG CAP PO SCH ×2 (07:44→20:55)
[2020-10-29] MEDS ORDERED: FUROSEMIDE 20 MG in SYRINGE 0 ML IV ONE ×2 (08:00→12:50)
[2020-10-29 08:35] LABS: Hematocrit (blood only) 31.3 % (37-47); Hemoglobin 9.4 g/dL (12.0-16.0); Mean Corpuscular Hemoglobin 28.8 pg (25-34); Mean Platelet Volume 10.3 fL (7.4-10.4); Platelet Count 253 K/uL (130-400); RDW Coefficient of Variation 15.1 % (11.5-14.5); RDW Standard Deviation 53.5 fL (36.4-46.3); Red Blood Count 3.26 M/uL (4.2-5.4); White Blood Count 13.14 K/uL (4.8-10.8)
--- NOTE | 2020-10-29 08:47 | Hospitalist Progress Note ---
Date of Service October 29, 2020 Assessment & Plan (1) Acute on chronic respiratory failure with hypoxia and hypercapnia: Aspiration pneumonia patient is a 70-year-old female with past medical history of diastolic heart failure, COPD, anxiety, depression, CKD stage III, hypertension, chronic indwelling Gonzalez catheter and GERD presented to the ED with shortness of breath and acute on chronic anemia. CXR on admission showed cardiomegaly and radiographic evidence of pulmonary vasc ular congestion with bilateral pleural effusions. Right upper lobe airspace opacities, pneumonia versus asymmetric edema. CT chest showed multifocal airspace consolidation is seen throughout both lungs. The appearance is typical for pneumonia/aspiration pneumonitis. Small to moderate pleural effusions. Patient is chronically on 2 L of nasal cannula due to COPD On admission was on 3 to 4 L in the hospital however overnight her oxygen requirement increased significantly, to 10 L (10/15) ABG -pH 7.36, PCO2 70, PO2 60, bicarb 39 Repeat CXR on 10/21 showed mild interval improvement/redistribution of bilateral pleural effusion. Unchanged opacities within bilateral lungs which could represent pneumonia. Antibiotics started by heating and ventilating drafter/ertapenem, then switched to cefepime to cover for possible Pseudomonas , added flagyl for anaerobic coverage Also started on vancomycin, obtained MRSA nasal swab - negative Discussed linezolid, however due to patient's medication such as Celexa or nortriptyline, linezolid is contraindicated Guaifenesin, flutter valve and incentive spirometry started Pulmonary medicine consulted, recommend CT chest without contrast, which was ordered MRSA nasal swab negative, Vancomycin was discontinued Switch cefepime and flagyl to zosyn. Cont. to monitor closely resp. status and oxygen requirements which seem to fluctuate between 3 and 7L. Encourage flutter valve, IS. Repeat CXR showed no change in the diffuse interstitial thickening and right lung airspace opacities. Will add PO Augmentin and continue neb treatment and oxygen supplement 10/28/20 Possible aspiration pneumonia CXR showed increasing airspace consolidation throughout the right lung, as well as increasing patchy airspace consolidation in the left lung. CT chest showed Multifocal airspace consolidation is again seen throughout both lungs. The appearance is typical for pneumonia/aspiration pneumonitis, and this has increased throughout the right upper lung as compared to 10/15/2020. Case discussed with pulm recommended IV lasix and IV steroid Abx changed from Augmentin to IV Zosyn Pulm recommended 7 days of abx course for the pneumonia Continue oxygen supplement Video swallow showed no aspiration identified. Continue PO prednisone for 3 more days palliative care on board for goal of care (2) COPD (chronic obstructive pulmonary disease): - cont. home medications and as above (3) Acute on chronic diastolic CHF (congestive heart failure): (4) Elevated troponin: (5) Congestive heart failure: On admission - Chest x-ray with some pulmonary vascular congestion and some right upper lobe airspace opacities patient denied any cough, fever and absence of any leukocytosis. proBNP of 11,000 on admission. Cardiac enzymes were not concerning. Does use 2-3 L of nasal cannula at baseline, on 4 L of nasal cannula on 10/14 Continued with IV Lasix 40 mg twice daily. Continue to monitor ins and outs along with daily weights. Echo obtained, no change compared to previous study in August 2020. Normal LV systolic function without regional wall motion abnormality, EF 60 to 65%. Cardiology consulted - as patient also complained of chest pain. Chest pain seems to be musculoskeletal in origin. Patient did not appear fluid overload and it was recommended that IV Lasix is stopped and patient is restarted on her home p.o. Lasix. We will continue to closely monitor After aspiration event CT chest obtained, which showed consolidation and also pl. effusions, cont. w/ IV lasix and albumin , as above 10/28/20 Chest pain pleuritic and reproducible in nature Mostly costochondritis due to the recent fall Troponin mildly elevated mostly to hypoxic respiratory failure and elevated creatinine and chronic EKG showed no acute ischemic changes Heparin drip was starting by the nocturnal provider Case discussed with cardiology that recommended to discontinue the IV heparin dr ip No additional cardiac testing needed Continue Lasix Speech recommended slippery diet with thin liquid Continue pain management with IV morphine (6) GERD (gastroesophageal reflux disease): (7) Anemia: GI bleed H. pylori Acute on chronic blood loss anemia - seen by GI at [facility] and also here -At [facility] presented with with coffee-ground emesis on arrival -At [facility] she underwent EGD (09/22/20), which showed gastritis and small gastric ulcer with no active bleeding. She was found to have H. pylori, and was treated. She finished treatment on October 07 -She is supposed to have a follow-up EGD in 8 weeks to assess ulcer healing (w/ [facility]) -Per [facility] - continue PPI, trend H&H, transfuse as needed, follow up w/ [facility] providers -Patient was transfused in [place], and she also obtained 2 units of PRBCs here on admission Hgb stable 9.2 (10/20) Monitor H&H, cont. to closely monitor, may require another blood transfusion given her cardiac hx Hgb stable at 9.0 today Fever pt had a fever overnight switch Augmentin back to zosyn obtain blood cultx, CXR, UA/U cultx -pt has pna and recent orthopedic procedure however she has been doing well -she has chronic Gonzalez - concern for UA -loose stools - obtain c. diff -Gonzalez removed - per nursing staff tip of catheter w/ stool -continue with straight cath - obtain CT abdomen/pelvis to eval for possible bladder/bowel fistula -Augmentin changed to IV Zosyn -Continue IV Zosyn Elevated WBC Mostly related to steroid Currently on IV Zosyn and Dapto (8) Right femoral fracture: -In [place] underwent right femur removal of hardware. Revision ORIF of right femur. Wound debridement and closure. Placement of antibiotic delivery device. On September 24, 2020, by . -Postop plan at that time was patient will be weightbearing as tolerated on her right lower extremity. She will begin DVT prophylaxis starting the night of postoperative day 0. Orthopedic infectious disease will provide recommendations for antibiotics postoperatively. Will obtain final x-rays of her right femur. Per hospitalist discharge summary, patient was discharged to [facility] -Intraoperative cultures grew 1+ E. faecium and few Staph aureus resistant to oxacillin. Ortho ID was following and recommended daptomycin 900 mg IV daily from September 25 to November 05, 2020. With follow-up CPK weekly, weightbearing of the right lower extremity as tolerated. PICC line was placed for 6 weeks of antibiotics. Following 6 weeks of IV antibiotics, plan will be to indefinitely suppressed with doxycycline monohydrate 100 mg p.o. twice daily due to the presence of extensive hardware in the limb. Lab results to be faxed to ID office at , outpatient follow-up with Ortho ID (Daptomycin dose was confirmed between Ortho ID in [place] and pharmacist at [facility]) -DVT prophylaxis achieved with Lovenox 40 twice daily for 3 weeks, end date October 14 -Per discharge summary, patient supposed to follow-up with orthopedics, Dr. Kaba, on October 14 - will reschedule follow up -[facility] - can be contacted at -On current admission, R leg - several incisions with sutures in place, one higher up on the thigh another one lateral to the knee -wound care was consulted as well as orthopedics given her extensive history and poorly healing wounds (9) Morbid obesity: - needs counselling (10) Weakness: (11) Depression: (12) Anxiety: - cont home medications - ativan decreased as per nursing staff pt becomes very somnolent w/ meds - Palliative medicine consulted - started on duloxetine (13) History of pulmonary embolism: (14) CKD (chronic kidney disease) stage 3, GFR 30-59 ml/min: BLANCO on CKD 3 Possible related to contrast and Lasix CT abd/pelvis showed no hydronephrosis Creatinine 1.25 now improved 1.1 Lasix 40mg x1 IV given Has been diuresis well Continue monitor BMP (15) Hypertension: (16) Hyperlipidemia: - monitor BP, cont. home meds (17) Chronic indwelling Gonzalez catheter: -Patient was having loose stools after requiring enema and disimpaction for constipation - fever (10/21), Gonzalez removed and noted stool at the tip of catheter - Negative urine cx - CT abdomen/pelvis showed no bladder/bowel fistula Admission and Anticipated Discharge Date Admission Date: October 13, 2020 Subjective Pt was seen and examined for follow up of SOB Lying in bed with no acute distress , breathing comfortably however on 11L Continues to have loose stools Denies any chest pain, palpitation, dizziness and SOB Review of Systems Review of Systems: All systems reviewed & are unremarkable except as noted in HPI & below Constitutional: no fever and no chills Respiratory: + dyspnea (improved) Cardiovascular: no palpitations Gastrointestinal: no abdominal pain and no vomiting Physical Exam Physical Exam: General- elderly obese female, laying in bed, in No acute distress, on suppl. O2 Head- atraumatic Eyes- PERRL, EOMI, ENT- oropharynx clear Neck- supple, no JVD Lungs- + bibasilar crackles Heart- regular rhythm; no murmur Abdomen- normal bowel sounds, soft, nontender Extremities- no calf tenderness, moves extremities Neuro- alert, oriented x 3; PERRL, EOMI; no facial palsy; no dysarthria Skin- warm & dry Results & Data Results & Data ([facility]) Vital Signs (Past 12 Hours) Vital Signs Temp Pulse Resp BP Pulse Ox 10/29/20 08:07 36.8 C 68 20 138/65 98 10/29/20 03:14 36.8 C 73 18 145/52 H 88 L 10/28/20 23:58 36.9 C 71 18 122/50 L 88 L 10/28/20 20:52 37 C 85 18 172/65 H 91 Laboratory Results 10/29/20 10/29/20 Range/Units 08:09 08:09 WBC 13.14 H (4.8-10.8) K/uL RBC 3.26 L (4.2-5.4) M/uL Hgb 9.4 L (12.0-16.0) g/dL Hct 31.3 L (37-47) % MCV 96.0 (80-100) fL MCH 28.8 (25-34) pg MCHC 30.0 L (32-36) g/dL RDW Std Deviation 53.5 H (36.4-46.3) fL RDW Coeff of Leo 15.1 H (11.5-14.5) % Plt Count 253 (130-400) K/uL MPV 10.3 (7.4-10.4) fL Sodium 135 L (136-145) mmol/L Potassium 3.4 L (3.5-5.1) mmol/L Chloride 87 L (98-107) mmol/L Carbon Dioxide 42 H* (21-32) mmol/L Anion Gap 6.0 (3-11) BUN 41 H (7-18) mg/dl Creatinine 1.11 (0.6-1.2) mg/dl Est Cr Clr Drug Dosing 57.4 ml/min Est GFR ( Amer) 57.5 ml/min Est GFR (Non-Af Amer) 49.6 ml/min BUN/Creatinine Ratio 36.8 H (10-20) Glucose 171 H (70-99) mg/dl Calcium 9.8 (8.5-10.1) mg/dl Medications Administered Current Inpatient Medications Acetaminophen (Acetaminophen 325 Mg Tab) 650 mg PO Q4H PRN PRN Reason: Pain or Fever Stop: 11/12/20 16:43 Last Admin: 10/28/20 13:40 Dose: 650 mg Documented by: Al Hydrox/Mg Hydrox/Simethicone (Aluminum/Magnesium Susp 30 Ml Udc) 15 ml PO Q6H PRN PRN Reason: dyspepsia Stop: 11/21/20 13:14 Last Admin: 10/23/20 09:57 Dose: 15 ml Documented by: Amitriptyline HCl (Amitriptyline Hcl 25 Mg Tab) 25 mg PO HS [facility] Stop: 11/12/20 20:59 Last Admin: 10/28/20 21:51 Dose: 25 mg Documented by: Atorvastatin Calcium (Atorvastatin 20 Mg Tab) 20 mg PO HS [facility] Stop: 11/12/20 20:59 Last Admin: 10/29/20 21:25 Dose: 20 mg Documented by: Benzonatate (Benzonatate 100 Mg Capsule) 100 mg PO TID PRN PRN Reason: Cough Stop: 11/24/20 22:46 Last Admin: 10/26/20 06:42 Dose: 100 mg Documented by: Benzonatate (Benzonatate 100 Mg Capsule) 100 mg PO TID [facility] Stop: 11/25/20 11:24 Last Admin: 10/29/20 20:50 Dose: 100 mg Documented by: Duloxetine HCl (Duloxetine Hcl 20 Mg Cap) 20 mg PO QAM [facility] Stop: 11/27/20 08:59 Last Admin: 10/29/20 07:33 Dose: 20 mg Documented by: Ferrous Sulfate (Ferrous Sulfate 325 Mg Tab) 325 mg PO DAILY [facility] Stop: 11/13/20 08:59 Last Admin: 10/29/20 07:35 Dose: 325 mg Documented by: Fluticasone/Vilanterol (Fluticasone/Vilanterol 100/25mcg 14 Puffs/Inhaler) 1 puffs INH DAILY ROBERT Stop: 11/13/20 08:59 Last Admin: 10/29/20 07:36 Dose: 1 puffs Documented by: Furosemide (Furosemide 20 Mg Tab) 20 mg PO BID17 ROBERT Stop: 11/28/20 08:59 Last Admin: 10/29/20 16:51 Dose: 20 mg Documented by: Guaifenesin (Guaifenesin 600 Mg Tabcr) 1,200 mg PO Q12 [facility]ERT Stop: 11/28/20 08:59 Last Admin: 10/29/20 20:51 Dose: 1,200 mg Documented by: Heparin Sodium (Beef Lung) (Heparin 10 Unit/Ml 5 Ml Flush) 5 ml FLUSH PRN PRN PRN Reason: Flush Stop: 11/13/20 08:12 Last Admin: 10/27/20 07:45 Dose: 5 ml Documented by: Pantoprazole Sodium 40 mg/ (Syringe) 10 mls @ 5 mls/min IV BID ROBERT Stop: 11/13/20 20:59 Last Admin: 10/29/20 07:31 Dose: 5 mls/min Documented by: Daptomycin 900 mg/ Syringe 18 mls @ 9 mls/min IV Q24H [facility]; Protocol Stop: 11/05/20 23:59 Last Admin: 10/29/20 13:00 Dose: 9 mls/min Documented by: Piperacillin Sod/Tazobactam (Sod 4.5 gm/ Dextrose) 120 mls @ 30 mls/hr IV Q8H [facility]; Protocol Stop: 10/31/20 13:59 Last Admin: 10/29/20 21:25 Dose: 30 mls/hr Documented by: Furosemide 20 mg/ Syringe 2 mls @ 4 mls/min IV BID [facility] Stop: 11/29/20 08:59 Ipratropium Lak[place] (Ipratropium [place] Neb Soln 0.02% 2.5 Ml Vial) 0.5 mg INH BIDR [facility] Stop: 11/25/20 18:59 Last Admin: 10/29/20 19:24 Dose: Not Given Documented by: Lactobacillus Acidoph/Casei/Rhamnos (Advanced Probiotic 1250 Mg Capsule) 2 cap PO DAILY [facility] Stop: 11/19/20 10:29 Last Admin: 10/29/20 07:33 Dose: 2 cap Documented by: Lactobacillus Acidoph/Casei/Rhamnos (Advanced Probiotic 1250 Mg Capsule) 2 cap PO DAILY [facility] Stop: 11/20/20 12:14 Last Admin: 10/29/20 07:37 Dose: 2 cap Documented by: Levalbuterol HCl (Levalbuterol 1.25mg/0.5ml Neb) 1.25 mg INH BIDR [facility] Stop: 11/25/20 18:59 Last Admin: 10/29/20 19:24 Dose: Not Given Documented by: Lidocaine (Lidocaine 5% 1 Patch) 1 patch TD DAILY [facility] Stop: 11/13/20 08:59 Last Admin: 10/29/20 07:37 Dose: Not Given Documented by: Lisinopril (Lisinopril 5 Mg Tab) 5 mg PO DAILY [facility] Stop: 11/13/20 08:59 Last Admin: 10/14/20 07:48 Dose: 5 mg Documented by: Lorazepam (Lorazepam 0.5 Mg Tab) 0.5 mg PO QID PRN PRN Reason: Anxiety Stop: 11/14/20 08:21 Last Admin: 10/29/20 14:32 Dose: 0.5 mg Documented by: Metoprolol Succinate (Metoprolol Succ 25mg Ext Rel Tab) 25 mg PO QAM [facility] Stop: 11/24/20 01:34 Last Admin: 10/29/20 07:35 Dose: 25 mg Documented by: Miconazole Nitrate (Miconazole Nitrate Powder 43 Gm) 1 appln EXT BID [facility] Stop: 11/24/20 22:59 Last Admin: 10/29/20 20:52 Dose: 1 appln Documented by: Miscellaneous (Remove Lidoderm Patch) 1 ea N/A DAILY@2100 [facility] Stop: 11/12/20 20:59 Last Admin: 10/29/20 21:25 Dose: 1 ea Documented by: Miscellaneous Information (Daptomycin Consult Active) 1 ea N/A UD PRN PRN Reason: Consult Stop: 11/16/20 11:06 Miscellaneous Information (Piperacill/Tazobac Consult Active) 1 ea N/A UD PRN PRN Reason: Consult Stop: 11/20/20 12:28 Montelukast Sodium (Montelukast Sodium 10 Mg Tablet) 10 mg PO HS [facility] Stop: 11/12/20 20:59 Last Admin: 10/29/20 21:25 Dose: 10 mg Documented by: Morphine Sulfate (Morphine Sulfate 2 Mg/Ml Carp) 1 mg IV Q6H PRN PRN Reason: Pain uncontrolled by PO meds Stop: 11/09/20 11:24 Last Admin: 10/29/20 20:48 Dose: 1 mg Documented by: Multivitamins (Multivitamin Tab) 1 tab PO QAM [facility] Stop: 11/13/20 08:59 Last Admin: 10/29/20 07:36 Dose: 1 tab Documented by: Nitroglycerin (Nitroglycerin Sl 0.4 Mg/Tab Tab) 0.4 mg SL PRN PRN PRN Reason: cp Stop: 11/23/20 23:50 Last Admin: 10/25/20 01:08 Dose: 0.4 mg Documented by: Ondansetron HCl (Ondansetron 2 Mg Od Tab) 2 mg PO Q4H PRN PRN Reason: Nausea And Vomiting Stop: 11/16/20 12:59 Last Admin: 10/29/20 07:34 Dose: 2 mg Documented by: Oxycodone HCl (Oxycodone Hcl Ir 5 Mg Tab (Immediate Release)) 5 mg PO Q6H PRN PRN Reason: pain Stop: 11/08/20 17:44 Last Admin: 10/29/20 18:41 Dose: 5 mg Documented by: Polyethylene Glycol (Polyethylene (Miralax) 17 Gm Pack) 17 gm PO BID PRN PRN Reason: constipation Stop: 11/16/20 20:59 Prednisone (Prednisone 20 Mg Tab) 40 mg PO DAILY [facility] Stop: 11/27/20 08:59 Last Admin: 10/29/20 07:35 Dose: 40 mg Documented by: Pregabalin (Pregabalin 100 Mg Cap) 100 mg PO BID [facility] Stop: 11/26/20 20:59 Last Admin: 10/29/20 20:55 Dose: 100 mg Documented by: Sodium Chloride (Sodium Chlor 7% 4 Ml Neb) 4 ml NEB BIDR [facility] Stop: 11/23/20 18:59 Last Admin: 10/29/20 19:25 Dose: Not Given Documented by: Trazodone HCl (Trazodone Hcl 50 Mg Tab) 50 mg PO HS [facility] Stop: 11/12/20 20:59 Last Admin: 10/29/20 20:55 Dose: 50 mg Documented by: Umeclidinium [place] (Umeclidinium [place] 62.5mcg/Blister 7 Puffs/Inhaler) 1 puffs INH DAILY [facility] Stop: 11/13/20 08:59 Last Admin: 10/29/20 07:36 Dose: 1 puffs Documented by: Vitamin D (Cholecalciferol 1,000 Units 25 Mcg Tab) 5,000 units PO DAILY [facility]ERT Stop: 11/13/20 08:59 Last Admin: 10/29/20 07:34 Dose: 5,000 units Documented by: (1) COPD (chronic obstructive pulmonary disease) COPD type: unspecified COPD Qualified Code(s): J44.9 - Chronic obstructive pulmonary disease, unspecified (2) Congestive heart failure Heart failure chronicity: acute Heart failure type: unspecified Qualified Code(s): I50.9 - Heart failure, unspecified (3) Anemia Anemia type: unspecified type Qualified Code(s): D64.9 - Anemia, unspecified
[2020-10-29 09:42] LABS: BUN Creatinine Ratio 36.8 (10-20); Calcium 9.8 mg/dl (8.5-10.1); Creatinine Clr Calc Pharmacy 57.4 ml/min; Est GFR (African American) 57.5 ml/min; Est GFR (Non-African American) 49.6 ml/min; Potassium 3.4 mmol/L (3.5-5.1)
[2020-10-29] MEDS ORDERED: FUROSEMIDE 40 MG/4 ML VIAL IV SCH (13:00)
[2020-10-29] MEDS: DAPTOmycin 900 MG in SYRINGE 0 ML IV SCH (13:00)
[2020-10-29] MEDS: oxyCODONE HCL IR 5 MG TAB (IMMEDIATE RELEASE) PO PRN (18:41)
[2020-10-29] MEDS: traZODone HCL 50 MG TAB PO SCH (20:55)
[2020-10-29] MEDS: ATORVASTATIN 20 MG TAB PO SCH (21:25)
[2020-10-29] MEDS: MONTELUKAST SODIUM 10 MG TABLET PO SCH (21:25)
[2020-10-29] MEDS ORDERED: POTASSIUM CHLORIDE CRTAB 20 MEQ TABCR PO STA (21:26)
[2020-10-29] MEDS: AMITRIPTYLINE HCL 25 MG TAB PO SCH (21:51)
[2020-10-30] MEDS: MoRPHine SULFATE 2 MG/ML CARP IV PRN ×2 (05:10→23:19)
[2020-10-30] MEDS: PIPERACILLIN/TAZOBACTAM 4.5 GM in DEXTROSE 5% 100 ML IV SCH ×3 (06:00→20:33)
[2020-10-30 06:56] LABS: BUN Creatinine Ratio 35.3 (10-20); Calcium 9.3 mg/dl (8.5-10.1); Creatinine Clr Calc Pharmacy 54.2 ml/min; Est GFR (African American) 61.4 ml/min; Magnesium 2.2 mg/dl (1.8-2.4); Phosphorus 2.8 mg/dl (2.5-4.9); Potassium 4.1 mmol/L (3.5-5.1)
[2020-10-30] MEDS: IPRATROPIUM BROMIDE NEB SOLN 0.02% 2.5 ML VIAL INH SCH ×3 (07:18→23:40)
[2020-10-30] MEDS: LEVALBUTEROL 1.25MG/0.5ML NEB INH SCH ×3 (07:18→23:40)
[2020-10-30] MEDS: SODIUM CHLOR 7% 4 ML NEB NEB SCH ×2 (07:19→23:40)
[2020-10-30] MEDS: LORazepam 0.5 MG TAB PO PRN ×2 (07:58→18:21)
--- NOTE | 2020-10-30 08:21 | Hospitalist Progress Note ---
Date of Service October 30, 2020 Assessment & Plan (1) Acute on chronic respiratory failure with hypoxia and hypercapnia: Aspiration pneumonia patient is a 70-year-old female with past medical history of diastolic heart failure, COPD, anxiety, depression, CKD stage III, hypertension, chronic indwelling Hernandez catheter and GERD presented to the ED with shortness of breath and acute on chronic anemia. CXR on admission showed cardiomegaly and radiographic evidence of pulmonary vas cular congestion with bilateral pleural effusions. Right upper lobe airspace opacities, pneumonia versus asymmetric edema. CT chest showed multifocal airspace consolidation is seen throughout both lungs. The appearance is typical for pneumonia/aspiration pneumonitis. Small to moderate pleural effusions. Patient is chronically on 2 L of nasal cannula due to COPD On admission was on 3 to 4 L in the hospital however overnight her oxygen requirement increased significantly, to 10 L (10/15) ABG -pH 7.36, PCO2 70, PO2 60, bicarb 39 Repeat CXR on 10/21 showed mild interval improvement/redistribution of bilateral pleural effusion. Unchanged opacities within bilateral lungs which could represent pneumonia. Antibiotics started by director outcomes/ertapenem, then switched to cefepime to cover for possible Pseudomonas , added flagyl for anaerobic coverage Also started on vancomycin, obtained MRSA nasal swab - negative Discussed linezolid, however due to patient's medication such as Celexa or nortriptyline, linezolid is contraindicated Guaifenesin, flutter valve and incentive spirometry started Pulmonary medicine consulted, recommend CT chest without contrast, which was ordered MRSA nasal swab negative, Vancomycin was discontinued Switch cefepime and flagyl to zosyn. Cont. to monitor closely resp. status and oxygen requirements which seem to fluctuate between 3 and 7L. Encourage flutter valve, IS. Repeat CXR showed no change in the diffuse interstitial thickening and right lung airspace opacities. Switched to PO Augmentin and continue neb treatment and oxygen supplement 10/28/20 Possible aspiration pneumonia CXR showed increasing airspace consolidation throughout the right lung, as well as increasing patchy airspace consolidation in the left lung. CT chest showed Multifocal airspace consolidation is again seen throughout both lungs. The appearance is typical for pneumonia/aspiration pneumonitis, and this has increased throughout the right upper lung as compared to 10/15/2020. Case discussed with pulmonary again - recommended IV lasix and IV steroid Abx changed from Augmentin to IV Zosyn Pulm recommended 7 days of abx course for the pneumonia Continue oxygen supplement Video swallow showed no aspiration identified. Continue PO prednisone palliative care on board for goal of care Re-consulted pulmonary medicine (10/30/20) - as pt's respiratory status not improving much and spiked fever CT chest ordered, procal, sputum cultx, ABG Pulmonary recommend ID consult re: fever (2) COPD (chronic obstructive pulmonary disease): - cont.medications as above/ per pulmonary (3) Acute on chronic diastolic CHF (congestive heart failure): (4) Elevated troponin: (5) Congestive heart failure: On admission - Chest x-ray with some pulmonary vascular congestion and some right upper lobe airspace opacities patient denied any cough, fever and absence of any leukocytosis. proBNP of 11,000 on admission. Cardiac enzymes were not concerning. Does use 2-3 L of nasal cannula at baseline, on 4 L of nasal cannula on 10/14 Initially Continued with IV Lasix 40 mg twice daily. Continue to monitor ins and outs along with daily weights. Echo obtained, no change compared to previous study in August 2020. Normal LV systolic function without regional wall motion abnormality, EF 60 to 65%. Cardiology consulted - as patient also complained of chest pain. Chest pain seems to be musculoskeletal in origin. Patient did not appear fluid overload and it was recommended that IV Lasix is stopped and patient is restarted on her home p.o. Lasix. We will continue to closely monitor After aspiration event CT chest obtained, which showed consolidation and also pl. effusions, cont. w/ IV lasix and albumin , as above 10/28/20 Chest pain pleuritic and reproducible in nature - cardiology recommends pain management consult Mostly costochondritis due to the recent fall Troponin mildly elevated mostly to hypoxic respiratory failure and elevated creatinine and chronic EKG showed no acute ischemic changes Heparin drip was starting by the nocturnal provider Case discussed with cardiology that recommended to discontinue the IV heparin drip No additional cardiac testing needed Continue Lasix Speech recommended slippery diet with thin liquid Continue pain management, palliative medicine also consulted (6) GERD (gastroesophageal reflux disease): (7) Anemia: GI bleed H. pylori Acute on chronic blood loss anemia - seen by GI at [facility] and also here -At [place] presented with with coffee-ground emesis on arrival -At [place] she underwent EGD (09/22/20), which showed gastritis and small gastric ulcer with no active bleeding. She was found to have H. pylori, and was treated. She finished treatment on October 07 -She is supposed to have a follow-up EGD in 8 weeks to assess ulcer healing (w/ [facility]) -Per [facility] - continue PPI, trend H&H, transfuse as needed, follow up w/ [facility] providers -Patient was transfused in [place], and she also obtained 2 units of PRBCs here on admission Hgb stable 9.2 (10/20) Monitor H&H, cont. to closely monitor, may require another blood transfusion given her cardiac hx Hgb stable at 9.0 today Fever pt had a fever overnight switch Augmentin back to zosyn obtain blood cultx, CXR, UA/U cultx -pt has pna and recent orthopedic procedure however she has been doing well -she has chronic Hernandez - concern for UA -loose stools - obtain c. diff -Hernandez removed - per nursing staff tip of catheter w/ stool -continue with straight cath - obtain CT abdomen/pelvis to eval for possible bladder/bowel fistula -Augmentin changed to IV Zosyn -Continue IV Zosyn Repeat Fever (10/30/20) Pt spiked fever again today despite being on daptomycin (per ortho ID) and on zosyn for aspiration pneumonia -Blood cultures obtained, UA urine culture, sputum culture, procalcitonin, C. difficile, chest x-ray, CT chest ID consulted for further recs Added doxycycline for now Elevated WBC Mostly related to steroid Currently on IV Zosyn and Dapto Added doxy for now (8) Right femoral fracture: -In [place] underwent right femur removal of hardware. Revision ORIF of right femur. Wound debridement and closure. Placement of antibiotic delivery device. On September 24, 2020, by . -Postop plan at that time was patient will be weightbearing as tolerated on her right lower extremity. She will begin DVT prophylaxis starting the night of postoperative day 0. Orthopedic infectious disease will provide recommendations for antibiotics postoperatively. Will obtain final x-rays of her right femur. Per hospitalist discharge summary, patient was discharged to [facility] -Intraoperative cultures grew 1+ E. faecium and few Staph aureus resistant to oxacillin. Ortho ID was following and recommended daptomycin 900 mg IV daily from September 25 to November 05, 2020. With follow-up CPK weekly, weightbearing of the right lower extremity as tolerated. PICC line was placed for 6 weeks of antibiotics. Following 6 weeks of IV antibiotics, plan will be to indefinitely suppressed with doxycycline monohydrate 100 mg p.o. twice daily due to the presence of extensive hardware in the limb. Lab results to be faxed to ID office at , outpatient follow-up with Ortho ID (Daptomycin dose was confirmed between Ortho ID in [place] and pharmacist at [facility]) -DVT prophylaxis achieved with Lovenox 40 twice daily for 3 weeks, end date October 14 -Per discharge summary, patient supposed to follow-up with orthopedics, Dr. Kaba, on October 14 - reschedule follow up -[facility] - can be contacted at -On current admission, R leg - several incisions with sutures in place, one higher up on the thigh another one lateral to the knee -wound care was consulted as well as orthopedics given her extensive history and poorly healing wounds - per ortho no current issues (9) Morbid obesity: - needs counselling (10) Weakness: (11) Depression: (12) Anxiety: - cont home medications - ativan decreased as per nursing staff pt becomes very somnolent w/ meds - Palliative medicine consulted - started on duloxetine (13) History of pulmonary embolism: (14) CKD (chronic kidney disease) stage 3, GFR 30-59 ml/min: BLANCO on CKD 3 Possible related to contrast and Lasix CT abd/pelvis showed no hydronephrosis Creatinine 1.25 now improved 1.1 Lasix 40mg x1 IV given, now on 20 IV bid Has been diuresis well Continue monitor BMP (15) Hypertension: (16) Hyperlipidemia: - monitor BP, cont. home meds (17) Chronic indwelling Hernandez catheter: -Patient was having loose stools after requiring enema and disimpaction for constipation - fever (10/21), Hernandez removed and noted stool at the tip of catheter - Negative urine cx - CT abdomen/pelvis showed no bladder/bowel fistula - repeat fever on (10/30), will remove hernandez and will obtain urine cultx Admission and Anticipated Discharge Date Admission Date: October 13, 2020 Subjective Pt was seen and examined for follow up of SOB Lying in bed with no acute distress , breathing comfortably however on 11-12L Spiked fever today Continues to have loose stools On and off ribcage discomfort, no palpitation, dizziness and SOB Contacted pulmonary to re-evaluate Pain management for ribcage pain/ back pain Review of Systems Review of Systems: All systems reviewed & are unremarkable except as noted in HPI & below Constitutional: + fever and + weakness Respiratory: + cough and + dyspnea (improved) Cardiovascular: + chest pain (ribcage discomfort); no palpitations Gastrointestinal: no abdominal pain, no nausea and no vomiting Physical Exam Physical Exam: General- elderly obese female, laying in bed, in No acute distress, on suppl. O2 Head- atraumatic Eyes- PERRL, EOMI, ENT- oropharynx clear Neck- supple, no JVD Lungs- + bibasilar crackles Heart- regular rhythm; no murmur Abdomen- normal bowel sounds, soft, nontender Extremities- no calf tenderness, moves extremities Neuro- alert, oriented x 3; PERRL, EOMI; no facial palsy; no dysarthria Skin- warm & dry Results & Data Results & Data ([facility]) Vital Signs (Past 12 Hours) Vital Signs Temp Pulse Pulse Pulse Resp BP Pulse Ox 10/30/20 07:47 37.1 C 75 18 174/65 H 90 10/30/20 07:24 73 10/30/20 04:36 36.6 C 77 18 137/67 92 10/29/20 23:40 69 10/29/20 23:18 36.7 C 72 18 149/63 H 92 10/29/20 22:05 79 Laboratory Results 10/30/20 10/29/20 10/29/20 Range/Units 05:00 08:09 08:09 WBC 13.14 H (4.8-10.8) K/uL RBC 3.26 L (4.2-5.4) M/uL Hgb 9.4 L (12.0-16.0) g/dL Hct 31.3 L (37-47) % MCV 96.0 (80-100) fL MCH 28.8 (25-34) pg MCHC 30.0 L (32-36) g/dL RDW Std Deviation 53.5 H (36.4-46.3) fL RDW Coeff of Leo 15.1 H (11.5-14.5) % Plt Count 253 (130-400) K/uL MPV 10.3 (7.4-10.4) fL Sodium 138 135 L (136-145) mmol/L Potassium 4.1 D 3.4 L (3.5-5.1) mmol/L Chloride 91 L 87 L (98-107) mmol/L Carbon Dioxide Pending 42 H* (21-32) mmol/L Anion Gap 6.0 (3-11) BUN 37 H 41 H (7-18) mg/dl Creatinine 1.05 1.11 (0.6-1.2) mg/dl Est Cr Clr Drug Dosing 54.2 57.4 ml/min Est GFR ( Amer) 61.4 57.5 ml/min Est GFR (Non-Af Amer) 53.0 49.6 ml/min BUN/Creatinine Ratio 35.3 H 36.8 H (10-20) Glucose 80 171 H (70-99) mg/dl Calcium 9.3 9.8 (8.5-10.1) mg/dl Phosphorus 2.8 (2.5-4.9) mg/dl Magnesium 2.2 (1.8-2.4) mg/dl Total Creatine Kinase 16 L (26-192) U/L Medications Administered Current Inpatient Medications Acetaminophen (Acetaminophen 325 Mg Tab) 650 mg PO Q4H PRN PRN Reason: Pain or Fever Stop: 11/12/20 16:43 Last Admin: 10/28/20 13:40 Dose: 650 mg Documented by: Al Hydrox/Mg Hydrox/Simethicone (Aluminum/Magnesium Susp 30 Ml Udc) 15 ml PO Q6H PRN PRN Reason: dyspepsia Stop: 11/21/20 13:14 Last Admin: 10/23/20 09:57 Dose: 15 ml Documented by: Amitriptyline HCl (Amitriptyline Hcl 25 Mg Tab) 25 mg PO HS ROBERT Stop: 11/12/20 20:59 Last Admin: 10/29/20 21:51 Dose: 25 mg Documented by: Atorvastatin Calcium (Atorvastatin 20 Mg Tab) 20 mg PO HS ROBERT Stop: 11/12/20 20:59 Last Admin: 10/29/20 21:25 Dose: 20 mg Documented by: Benzonatate (Benzonatate 100 Mg Capsule) 100 mg PO TID PRN PRN Reason: Cough Stop: 11/24/20 22:46 Last Admin: 10/26/20 06:42 Dose: 100 mg Documented by: Benzonatate (Benzonatate 100 Mg Capsule) 100 mg PO TID ROBERT Stop: 11/25/20 11:24 Last Admin: 10/29/20 20:50 Dose: 100 mg Documented by: Duloxetine HCl (Duloxetine Hcl 20 Mg Cap) 20 mg PO QAM ROBERT Stop: 11/27/20 08:59 Last Admin: 10/29/20 07:33 Dose: 20 mg Documented by: Ferrous Sulfate (Ferrous Sulfate 325 Mg Tab) 325 mg PO DAILY [facility] Stop: 11/13/20 08:59 Last Admin: 10/29/20 07:35 Dose: 325 mg Documented by: Fluticasone/Vilanterol (Fluticasone/Vilanterol 100/25mcg 14 Puffs/Inhaler) 1 puffs INH DAILY ROBERT Stop: 11/13/20 08:59 Last Admin: 10/29/20 07:36 Dose: 1 puffs Documented by: Furosemide (Furosemide 20 Mg Tab) 20 mg PO BID17 [facility] Stop: 11/28/20 08:59 Last Admin: 10/29/20 16:51 Dose: 20 mg Documented by: Guaifenesin (Guaifenesin 600 Mg Tabcr) 1,200 mg PO Q12 ROBERT Stop: 11/28/20 08:59 Last Admin: 10/29/20 20:51 Dose: 1,200 mg Documented by: Heparin Sodium (Beef Lung) (Heparin 10 Unit/Ml 5 Ml Flush) 5 ml FLUSH PRN PRN PRN Reason: Flush Stop: 11/13/20 08:12 Last Admin: 10/27/20 07:45 Dose: 5 ml Documented by: Pantoprazole Sodium 40 mg/ (Syringe) 10 mls @ 5 mls/min IV BID ROBERT Stop: 11/13/20 20:59 Last Admin: 10/29/20 21:51 Dose: 5 mls/min Documented by: Daptomycin 900 mg/ Syringe 18 mls @ 9 mls/min IV Q24H [facility]; Protocol Stop: 11/05/20 23:59 Last Admin: 10/29/20 13:00 Dose: 9 mls/min Documented by: Piperacillin Sod/Tazobactam (Sod 4.5 gm/ Dextrose) 120 mls @ 30 mls/hr IV Q8H [facility]; Protocol Stop: 10/31/20 13:59 Last Admin: 10/30/20 06:00 Dose: 30 mls/hr Documented by: Furosemide 20 mg/ Syringe 2 mls @ 4 mls/min IV BID [facility] Stop: 11/29/20 08:59 Ipratropium [place] (Ipratropium [place] Neb Soln 0.02% 2.5 Ml Vial) 0.5 mg INH BIDR [facility] Stop: 11/25/20 18:59 Last Admin: 10/30/20 07:18 Dose: Not Given Documented by: Lactobacillus Acidoph/Casei/Rhamnos (Advanced Probiotic 1250 Mg Capsule) 2 cap PO DAILY [facility] Stop: 11/19/20 10:29 Last Admin: 10/29/20 07:33 Dose: 2 cap Documented by: Lactobacillus Acidoph/Casei/Rhamnos (Advanced Probiotic 1250 Mg Capsule) 2 cap PO DAILY [facility] Stop: 11/20/20 12:14 Last Admin: 10/29/20 07:37 Dose: 2 cap Documented by: Levalbuterol HCl (Levalbuterol 1.25mg/0.5ml Neb) 1.25 mg INH BIDR [facility] Stop: 11/25/20 18:59 Last Admin: 10/30/20 07:18 Dose: Not Given Documented by: Lidocaine (Lidocaine 5% 1 Patch) 1 patch TD DAILY [facility] Stop: 11/13/20 08:59 Last Admin: 10/29/20 07:37 Dose: Not Given Documented by: Lisinopril (Lisinopril 5 Mg Tab) 5 mg PO DAILY [facility] Stop: 11/13/20 08:59 Last Admin: 10/14/20 07:48 Dose: 5 mg Documented by: Lorazepam (Lorazepam 0.5 Mg Tab) 0.5 mg PO QID PRN PRN Reason: Anxiety Stop: 11/14/20 08:21 Last Admin: 10/30/20 07:58 Dose: 0.5 mg Documented by: Metoprolol Succinate (Metoprolol Succ 25mg Ext Rel Tab) 25 mg PO QAM [facility] Stop: 11/24/20 01:34 Last Admin: 10/29/20 07:35 Dose: 25 mg Documented by: Miconazole Nitrate (Miconazole Nitrate Powder 43 Gm) 1 appln EXT BID [facility] Stop: 11/24/20 22:59 Last Admin: 10/29/20 20:52 Dose: 1 appln Documented by: Miscellaneous (Remove Lidoderm Patch) 1 ea N/A DAILY@2100 [facility] Stop: 11/12/20 20:59 Last Admin: 10/29/20 21:25 Dose: 1 ea Documented by: Miscellaneous Information (Daptomycin Consult Active) 1 ea N/A UD PRN PRN Reason: Consult Stop: 11/16/20 11:06 Miscellaneous Information (Piperacill/Tazobac Consult Active) 1 ea N/A UD PRN PRN Reason: Consult Stop: 11/20/20 12:28 Montelukast Sodium (Montelukast Sodium 10 Mg Tablet) 10 mg PO HS [facility] Stop: 11/12/20 20:59 Last Admin: 10/29/20 21:25 Dose: 10 mg Documented by: Morphine Sulfate (Morphine Sulfate 2 Mg/Ml Carp) 1 mg IV Q6H PRN PRN Reason: Pain uncontrolled by PO meds Stop: 11/09/20 11:24 Last Admin: 10/30/20 05:10 Dose: 1 mg Documented by: Multivitamins (Multivitamin Tab) 1 tab PO QAM [facility] Stop: 11/13/20 08:59 Last Admin: 10/29/20 07:36 Dose: 1 tab Documented by: Nitroglycerin (Nitroglycerin Sl 0.4 Mg/Tab Tab) 0.4 mg SL PRN PRN PRN Reason: cp Stop: 11/23/20 23:50 Last Admin: 10/25/20 01:08 Dose: 0.4 mg Documented by: Ondansetron HCl (Ondansetron 2 Mg Od Tab) 2 mg PO Q4H PRN PRN Reason: Nausea And Vomiting Stop: 11/16/20 12:59 Last Admin: 10/29/20 07:34 Dose: 2 mg Documented by: Oxycodone HCl (Oxycodone Hcl Ir 5 Mg Tab (Immediate Release)) 5 mg PO Q6H PRN PRN Reason: pain Stop: 11/08/20 17:44 Last Admin: 10/29/20 18:41 Dose: 5 mg Documented by: Polyethylene Glycol (Polyethylene (Miralax) 17 Gm Pack) 17 gm PO BID PRN PRN Reason: constipation Stop: 11/16/20 20:59 Prednisone (Prednisone 20 Mg Tab) 40 mg PO DAILY ROBERT Stop: 11/27/20 08:59 Last Admin: 10/29/20 07:35 Dose: 40 mg Documented by: Pregabalin (Pregabalin 100 Mg Cap) 100 mg PO BID ROBERT Stop: 11/26/20 20:59 Last Admin: 10/29/20 20:55 Dose: 100 mg Documented by: Sodium Chloride (Sodium Chlor 7% 4 Ml Neb) 4 ml NEB BIDR ROBERT Stop: 11/23/20 18:59 Last Admin: 10/30/20 07:19 Dose: Not Given Documented by: Trazodone HCl (Trazodone Hcl 50 Mg Tab) 50 mg PO HS ROBERT Stop: 11/12/20 20:59 Last Admin: 10/29/20 20:55 Dose: 50 mg Documented by: Umeclidinium [place] (Umeclidinium [place] 62.5mcg/Blister 7 Puffs/Inhaler) 1 puffs INH DAILY ROBERT Stop: 11/13/20 08:59 Last Admin: 10/29/20 07:36 Dose: 1 puffs Documented by: Vitamin D (Cholecalciferol 1,000 Units 25 Mcg Tab) 5,000 units PO DAILY ROBERT Stop: 11/13/20 08:59 Last Admin: 10/29/20 07:34 Dose: 5,000 units Documented by: (1) Congestive heart failure Heart failure chronicity: acute Heart failure type: unspecified Qualified Code(s): I50.9 - Heart failure, unspecified (2) Anemia Anemia type: unspecified type Qualified Code(s): D64.9 - Anemia, unspecified (3) COPD (chronic obstructive pulmonary disease) COPD type: unspecified COPD Qualified Code(s): J44.9 - Chronic obstructive pulmonary disease, unspecified
[2020-10-30] MEDS: FUROSEMIDE 20 MG TAB PO SCH (08:54)
[2020-10-30] MEDS: CHOLECALCIFEROL 1,000 UNITS 25 MCG TAB PO SCH (09:45)
[2020-10-30] MEDS: BENZONATATE 100 MG CAPSULE PO SCH ×3 (09:45→20:26)
[2020-10-30] MEDS: FERROUS SULFATE 325 MG TAB PO SCH (09:46)
[2020-10-30] MEDS: FLUTICASONE/VILANTEROL 100/25MCG 14 PUFFS/INHALER INH SCH (09:46)
[2020-10-30] MEDS: DULoxetine HCL 20 MG CAP PO SCH (09:46)
[2020-10-30] MEDS: FUROSEMIDE 20 MG in SYRINGE 0 ML IV SCH (09:47)
[2020-10-30] MEDS: guaiFENesin 600 MG TABCR PO SCH ×2 (09:48→20:26)
[2020-10-30] MEDS: ADVANCED PROBIOTIC 1250 MG CAPSULE PO SCH (09:48)
[2020-10-30] MEDS: LIDOCAINE 5% 1 PATCH TD SCH (09:48)
[2020-10-30] MEDS: METOPROLOL SUCC 25MG EXT REL TAB PO SCH (09:49)
[2020-10-30] MEDS: MULTIVITAMIN TAB PO SCH (09:49)
[2020-10-30] MEDS: MICONAZOLE NITRATE POWDER 43 GM EXT SCH ×2 (09:49→20:28)
[2020-10-30] MEDS: UMECLIDINIUM BROMIDE 62.5MCG/BLISTER 7 PUFFS/INHALER INH SCH (09:50)
[2020-10-30] MEDS: PREGABALIN 100 MG CAP PO SCH ×2 (09:50→20:26)
[2020-10-30] MEDS: PANTOprazole 40 MG in SYRINGE 0 ML IV SCH ×2 (09:50→20:27)
[2020-10-30] MEDS: predniSONE 20 MG TAB PO SCH (10:03)
[2020-10-30] MEDS: ALBUMIN 25% 12.5 GM/50 ML VIAL IV SCH ×2 (10:19→11:34)
[2020-10-30] MEDS: oxyCODONE HCL IR 5 MG TAB (IMMEDIATE RELEASE) PO PRN ×2 (11:40→21:34)
[2020-10-30] MEDS: DAPTOmycin 900 MG in SYRINGE 0 ML IV SCH (12:39)
[2020-10-30] MEDS: ACETAMINOPHEN 325 MG TAB PO PRN (12:39)
--- NOTE | 2020-10-30 13:03 | XRay Report ---
XR chest 1V portable CLINICAL HISTORY: hypoxemia COMPARISON STUDY: 10/25/2020 FINDINGS: The cardiac and mediastinal contours remain stable. There is a right-sided PICC catheter un changed in position. There is persistent right upper lobe parenchymal consolidation. There are bilate ral pleural effusions with persistent but improving left basilar airspace opacities. There is persist ent diffuse interstitial thickening.[ IMPRESSION: 1. Persistent dense consolidation right upper lobe 2. Suspected bilateral pleural effusions 3. Improving left basilar airspace opacities ACT 112: Negative or not required by law. Electronically signed by: Rakan Azul M.D. 10/30/2020 1:02 PM
--- NOTE | 2020-10-30 14:52 | Pulmonology Progress Note ---
Date of Service October 30, 2020 Assessment & Plan (1) Acute on chronic respiratory failure with hypoxia and hypercapnia: (2) Abnormal CT scan of lung: (3) Acute on chronic diastolic CHF (congestive heart failure): Impression: 70-year-old female with a host of medical issues including morbid obesity, hypoxemic and hypercarbic respiratory failure, chronic kidney disease, grade 2 diastolic dysfunction, reported COPD, and bedbound status with recent extensive orthopedic surgery for infection performed at [facility]. She is now having an increasing oxygen requirement and now febrile despite 10 days of Zosyn and daptomycin. Recommendations: 1. Hypoxemic respiratory failure we will follow up with chest x-ray and arterial blood gas. She has known aortic valvular disease. We will recheck BMP. I would agree with recommendations regarding diuresis. Her serum bicarb is elevated however last blood gas showed an acidemic pH so I would be reluctant to use Diamox. 2. Hypercarbic respiratory failure: Advised the patient that she really needs to be compliant with CPAP or BiPAP. She states that she has tried it and refuses to use the mask is too uncomfortable. She understands that this may be the only solution to improving her CO2 retention. She again declines therapy. I asked her if she would reconsider if it meant the difference between living and dying and she again states that she does not want to be compliant with CPAP or BiPAP. Her elevated CO2 levels are significantly contributing to her hypoxemia and correction of CO2 would significantly improve her oxygenation. 3. Fevers: Cannot rule out a lung abscess or pneumonia. She has been on Zosyn for 10days but has a persistent elevation in white blood cell count. She has multiple potential etiologies for infection outside of her lungs including recent orthopedic surgeries skin and soft tissue infections and GI sources. Would recommend ID consultation as the patient has been seen by ID at [facility] in the past to manage her infections. Would be reluctant to consider bronchoscopy in this patient given her DNI status and oxygenation issues. Could consider repeating the CT scan of her chest to see if she has a necrotizing pneumonia. Daptomycin does not really provide lung coverage due to inactivation from p ulmonary surfactant. She is at risk for secondary staph pneumonia. Will check blood culture, sputum culture, procalcitonin, BNP, and urine cultures. May consider transitioning to vancomycin rather than daptomycin but again ID consultation would be helpful. Will defer additional work-up to the patient's primary service. 4. Reported COPD: The patient does not appear bronchospastic currently. No indication for additional steroids or inhalers currently. 5. Confirmed DNR/DNI status which I believe is appropriate. Unclear if the patient's current situation is modifiable given her frequent readmissions and failure to show significant progression. does not appear that the patient is motivated to try and improve. Admission and Anticipated Discharge Date Admission Date: October 13, 2020 Subjective Asked by hospitalist to reevaluate this patient with increasing oxygen requirement and multiple medical comorbidities. Please refer to the electronic medical record for complete details. The patient had been seen previously by Dr. velasquez and Dr. Wren with aspiration pneumonia, fluid overload, diastolic heart failure, and acute on chronic hypercarbic respiratory failure. She has now been in the hospital since last part of September and has been hospitalized on multiple occasions due to a variety of medical comorbid conditions. Hospitalist was concerned that the pat agustin's status was not improving and she is now developed new fevers and persistent hypoxemia. When I evaluated the patient she states she feels better now that her fever is broken. She is coughing and states that she expectorated some bloody phlegm. Of note palliative care has been involved in evaluating the patient has been elected to not pursue aggressive interventions or further escalation of care. Review of Systems Review of Systems: Please refer to hospitalist note. No additions or deletions Results & Data Results & Data ([facility]) Vital Signs (Past 12 Hours) Vital Signs Temp Pulse Pulse Pulse Resp BP Pulse Ox 10/30/20 14:20 36.9 C 10/30/20 13:14 38.0 C H 10/30/20 12:30 38.1 C H 86 18 167/55 H 90 10/30/20 11:35 37.4 C 92 H 20 172/68 H 88 L 10/30/20 10:10 37 C 99 H 20 152/64 H 75 L 10/30/20 09:18 95 H 20 88 L 10/30/20 09:04 90 20 169/63 H 77 L 10/30/20 07:47 37.1 C 75 18 174/65 H 90 10/30/20 07:24 73 10/30/20 04:36 36.6 C 77 18 137/67 92 Laboratory Results 10/29/20 08:09 10/30/20 05:00 INR 1.0 CPK 16 Procalcitonin had been trending up. 10/13 0.18, 10/15 0.29, 10/24 0.41 No cultures have been obtained since 10/21 PG Care Time/CCT Total # of Minutes Spent Total Time Spent with Patient: Total time spent is greater than 50% in coordination of care (as documented) at patient's floor/unit and/or counseling patient: Coding Level of Care Code 04388 Subseq Hosp Care Lvl 3 Diagnoses Acute on chronic respiratory failure with hypoxia and hypercapnia J96.21; J96.[address] scan of lung R91.8 Acute on chronic diastolic CHF (congestive heart failure) I50.33
[2020-10-30 15:49] LABS: Base Excess VBG 19.3 mEq/L; Oxygen Saturation VBG 75.2 %; pH VBG 7.41 (7.36-7.41)
[2020-10-30 20:25] LABS: Appearance Urine Clear (Clear); Bacteria Urine Automated Negative (Negative); Bilirubin Urine Negative (Negative); Blood Urine Negative (Negative); Color Urine Yellow; Glucose Urine UA Negative (Negative); Ketones Urine Negative (Negative); Leukocyte Esterase Urine Negative (Negative); Nitrite Urine Negative (Negative); Protein Urine 1+ (Negative); RBC Urine Automated 0-4 /hpf (0-4); Specific Gravity Urine 1.017 (1.000-1.030); Urobilinogen Urine Negative (Negative); pH Urine 6.5 (4.5-7.5)
[2020-10-30] MEDS: ATORVASTATIN 20 MG TAB PO SCH (20:27)
[2020-10-30] MEDS: MONTELUKAST SODIUM 10 MG TABLET PO SCH (20:27)
[2020-10-30] MEDS: FLUTICASONE PROPIONATE NA SPR 16 GM BTL PRN (20:29)
[2020-10-30] MEDS: AMITRIPTYLINE HCL 25 MG TAB PO SCH (21:30)
[2020-10-30] MEDS: traZODone HCL 50 MG TAB PO SCH (21:30)
[2020-10-31] MEDS: LORazepam 0.5 MG TAB PO PRN ×2 (05:05→13:30)
[2020-10-31] MEDS: PIPERACILLIN/TAZOBACTAM 4.5 GM in DEXTROSE 5% 100 ML IV SCH (05:31)
[2020-10-31 06:09] LABS: Hematocrit (blood only) 27.9 % (37-47); Hemoglobin 8.6 g/dL (12.0-16.0); Mean Corpuscular Hemoglobin 29.2 pg (25-34); Mean Corpuscular Hgb Conc 30.8 g/dL (32-36); Mean Corpuscular Volume 94.6 fL (80-100); Mean Platelet Volume 10.3 fL (7.4-10.4); Platelet Count 231 K/uL (130-400); RDW Coefficient of Variation 15.6 % (11.5-14.5); RDW Standard Deviation 53.6 fL (36.4-46.3); Red Blood Count 2.95 M/uL (4.2-5.4); White Blood Count 8.15 K/uL (4.8-10.8)
[2020-10-31 06:57] LABS: Calcium 9.2 mg/dl (8.5-10.1); Creatinine Clr Calc Pharmacy 52.2 ml/min; Est GFR (African American) 58.7 ml/min; Est GFR (Non-African American) 50.7 ml/min; Magnesium 2.1 mg/dl (1.8-2.4); Phosphorus 3.5 mg/dl (2.5-4.9); Potassium 3.7 mmol/L (3.5-5.1)
[2020-10-31] MEDS: oxyCODONE HCL IR 5 MG TAB (IMMEDIATE RELEASE) PO PRN ×2 (07:49→18:34)
[2020-10-31] MEDS: DOXYCYCLINE HYCLATE 100 MG in DEXTROSE 5% 100 ML IV SCH ×2 (07:50→18:34)
[2020-10-31] MEDS: BENZONATATE 100 MG CAPSULE PO SCH ×3 (07:52→20:25)
[2020-10-31] MEDS: LIDOCAINE 5% 1 PATCH TD SCH (07:56)
[2020-10-31] MEDS: CHOLECALCIFEROL 1,000 UNITS 25 MCG TAB PO SCH (07:58)
[2020-10-31] MEDS: FERROUS SULFATE 325 MG TAB PO SCH (07:58)
[2020-10-31] MEDS: guaiFENesin 600 MG TABCR PO SCH ×2 (07:58→20:25)
[2020-10-31] MEDS: ADVANCED PROBIOTIC 1250 MG CAPSULE PO SCH (07:58)
[2020-10-31] MEDS: DULoxetine HCL 20 MG CAP PO SCH (07:58)
[2020-10-31] MEDS: FUROSEMIDE 20 MG in SYRINGE 0 ML IV SCH ×2 (07:58→20:24)
[2020-10-31] MEDS: UMECLIDINIUM BROMIDE 62.5MCG/BLISTER 7 PUFFS/INHALER INH SCH (07:59)
[2020-10-31] MEDS: METOPROLOL SUCC 25MG EXT REL TAB PO SCH (07:59)
[2020-10-31] MEDS: MULTIVITAMIN TAB PO SCH (07:59)
[2020-10-31] MEDS: predniSONE 20 MG TAB PO SCH (07:59)
[2020-10-31] MEDS: MICONAZOLE NITRATE POWDER 43 GM EXT SCH ×2 (07:59→20:26)
[2020-10-31] MEDS ORDERED: POTASSIUM CHLORIDE CRTAB 20 MEQ TABCR PO STA (08:10)
--- NOTE | 2020-10-31 08:13 | Hospitalist Progress Note ---
Date of Service October 31, 2020 Assessment & Plan (1) Acute on chronic respiratory failure with hypoxia and hypercapnia: Aspiration pneumonia patient is a 70-year-old female with past medical history of diastolic heart failure, COPD, anxiety, depression, CKD stage III, hypertension, chronic indwelling Hernandez catheter and GERD presented to the ED with shortness of breath and acute on chronic anemia. CXR on admission showed cardiomegaly and radiographic evidence of pulmonary vas cular congestion with bilateral pleural effusions. Right upper lobe airspace opacities, pneumonia versus asymmetric edema. CT chest showed multifocal airspace consolidation is seen throughout both lungs. The appearance is typical for pneumonia/aspiration pneumonitis. Small to moderate pleural effusions. Patient is chronically on 2 L of nasal cannula due to COPD On admission was on 3 to 4 L in the hospital however overnight her oxygen requirement increased significantly, to 10 L (10/15) ABG -pH 7.36, PCO2 70, PO2 60, bicarb 39 Repeat CXR on 10/21 showed mild interval improvement/redistribution of bilateral pleural effusion. Unchanged opacities within bilateral lungs which could represent pneumonia. Antibiotics started by shade classifier/ertapenem, then switched to cefepime to cover for possible Pseudomonas , added flagyl for anaerobic coverage Also started on vancomycin, obtained MRSA nasal swab - negative Discussed linezolid, however due to patient's medication such as Celexa or nortriptyline, linezolid is contraindicated Guaifenesin, flutter valve and incentive spirometry started Pulmonary medicine consulted, recommend CT chest without contrast, which was ordered MRSA nasal swab negative, Vancomycin was discontinued Switch cefepime and flagyl to zosyn. Cont. to monitor closely resp. status and oxygen requirements which seem to fluctuate between 3 and 7L. Encourage flutter valve, IS. Repeat CXR showed no change in the diffuse interstitial thickening and right lung airspace opacities. Switched to PO Augmentin and continue neb treatment and oxygen supplement 10/28/20 Possible aspiration pneumonia CXR showed increasing airspace consolidation throughout the right lung, as well as increasing patchy airspace consolidation in the left lung. CT chest showed Multifocal airspace consolidation is again seen throughout both lungs. The appearance is typical for pneumonia/aspiration pneumonitis, and this has increased throughout the right upper lung as compared to 10/15/2020. Case discussed with pulmonary again - recommended IV lasix and IV steroid Abx changed from Augmentin to IV Zosyn Pulm recommended 7 days of abx course for the pneumonia Continue oxygen supplement Video swallow showed no aspiration identified. Continue PO prednisone palliative care on board for goal of care Re-consulted pulmonary medicine (10/30/20) - as pt's respiratory status not improving much and spiked fever CT chest ordered, procal, sputum cultx, ABG Pulmonary recommend ID consult re: fever (2) COPD (chronic obstructive pulmonary disease): - cont.medications as above/ per pulmonary (3) Acute on chronic diastolic CHF (congestive heart failure): (4) Elevated troponin: (5) Congestive heart failure: On admission - Chest x-ray with some pulmonary vascular congestion and some right upper lobe airspace opacities patient denied any cough, fever and absence of any leukocytosis. proBNP of 11,000 on admission. Cardiac enzymes were not concerning. Does use 2-3 L of nasal cannula at baseline, on 4 L of nasal cannula on 10/14 Initially Continued with IV Lasix 40 mg twice daily. Continue to monitor ins and outs along with daily weights. Echo obtained, no change compared to previous study in August 2020. Normal LV systolic function without regional wall motion abnormality, EF 60 to 65%. Cardiology consulted - as patient also complained of chest pain. Chest pain seems to be musculoskeletal in origin. Patient did not appear fluid overload and it was recommended that IV Lasix is stopped and patient is restarted on her home p.o. Lasix. We will continue to closely monitor After aspiration event CT chest obtained, which showed consolidation and also pl. effusions, cont. w/ IV lasix and albumin , as above 10/28/20 Chest pain pleuritic and reproducible in nature - cardiology recommends pain management consult Mostly costochondritis due to the recent fall Troponin mildly elevated mostly to hypoxic respiratory failure and elevated creatinine and chronic EKG showed no acute ischemic changes Heparin drip was starting by the nocturnal provider Case discussed with cardiology that recommended to discontinue the IV heparin drip No additional cardiac testing needed Continue Lasix Speech recommended slippery diet with thin liquid Continue pain management, palliative medicine also consulted (6) GERD (gastroesophageal reflux disease): (7) Anemia: GI bleed H. pylori Acute on chronic blood loss anemia - seen by GI at [facility] and also here -At [facility] presented with with coffee-ground emesis on arrival -At [facility] she underwent EGD (09/22/20), which showed gastritis and small gastric ulcer with no active bleeding. She was found to have H. pylori, and was treated. She finished treatment on October 07 -She is supposed to have a follow-up EGD in 8 weeks to assess ulcer healing (w/ [facility]) -Per [facility] - continue PPI, trend H&H, transfuse as needed, follow up w/ [facility] providers -Patient was transfused in [facility], and she also obtained 2 units of PRBCs here on admission Hgb stable 9.2 (10/20) Monitor H&H, cont. to closely monitor, may require another blood transfusion given her cardiac hx Hgb stable at~ 9 Fever pt had a fever overnight switch Augmentin back to zosyn obtain blood cultx, CXR, UA/U cultx -pt has pna and recent orthopedic procedure however she has been doing well -she has chronic Hernandez - concern for UA -loose stools - obtain c. diff -Hernandez removed - per nursing staff tip of catheter w/ stool -continue with straight cath - obtain CT abdomen/pelvis to eval for possible bladder/bowel fistula -Augmentin changed to IV Zosyn -Continue IV Zosyn Repeat Fever (10/30/20) Pt spiked fever again today despite being on daptomycin (per ortho ID) and on zosyn for aspiration pneumonia -Blood cultures obtained, UA urine culture, sputum culture, procalcitonin, C. difficile, chest x-ray, CT chest -Orthopedic surgery re-evaluated the patient, they don't see any issues with the incision, looks clean, not infected UA - negative Blood cultx - pending ID consulted for further recs -recommend to discontinue daptomycin, and Zosyn, patient is now on meropenem and doxycycline (10/31) Elevated WBC Mostly related to steroid on IV Zosyn and Dapto 10/31 - now changed from Dapto and Zosyn to meropenem and doxycycline, as above (8) Right femoral fracture: -In [place] underwent right femur removal of hardware. Revision ORIF of right femur. Wound debridement and closure. Placement of antibiotic delivery device. On September 24, 2020, by . -Postop plan at that time was patient will be weightbearing as tolerated on her right lower extremity. She will begin DVT prophylaxis starting the night of postoperative day 0. Orthopedic infectious disease will provide recommendations for antibiotics postoperatively. Will obtain final x-rays of her right femur. Per hospitalist discharge summary, patient was discharged to [facility] -Intraoperative cultures grew 1+ E. faecium and few Staph aureus resistant to oxacillin. Ortho ID was following and recommended daptomycin 900 mg IV daily from September 25 to November 05, 2020. With follow-up CPK weekly, weightbearing of the right lower extremity as tolerated. PICC line was placed for 6 weeks of antibiotics. Following 6 weeks of IV antibiotics, plan will be to indefinitely suppressed with doxycycline monohydrate 100 mg p.o. twice daily due to the presence of extensive hardware in the limb. Lab results to be faxed to ID office at , outpatient follow-up with Ortho ID (Daptomycin dose was confirmed between Ortho ID in [facility] and pharmacist at [facility]) -DVT prophylaxis achieved with Lovenox 40 twice daily for 3 weeks, end date October 14 -Per discharge summary, patient supposed to follow-up with orthopedics, Dr. Kaba, on October 14 - reschedule follow up -[facility] - can be contacted at -On current admission, R leg - several incisions with sutures in place, one higher up on the thigh another one lateral to the knee -wound care was consulted as well as orthopedics given her extensive history and poorly healing wounds - per ortho no current issues (9) Morbid obesity: - needs counselling (10) Weakness: (11) Depression: (12) Anxiety: - cont home medications - ativan decreased as per nursing staff pt becomes very somnolent w/ meds - Palliative medicine consulted - started on duloxetine (13) History of pulmonary embolism: (14) CKD (chronic kidney disease) stage 3, GFR 30-59 ml/min: BLANCO on CKD 3 Possible related to contrast and Lasix CT abd/pelvis showed no hydronephrosis Creatinine 1.25 now improved 1.1 Lasix 40mg x1 IV given, now on 20 IV bid Has been diuresis well Continue monitor BMP (15) Hypertension: (16) Hyperlipidemia: - monitor BP, cont. home meds (17) Chronic indwelling Hernandez catheter: -Patient was having loose stools after requiring enema and disimpaction for constipation - fever (10/21), Hernandez removed and noted stool at the tip of catheter - Negative urine cx - CT abdomen/pelvis showed no bladder/bowel fistula - repeat fever on (10/30), will remove hernandez and will obtain urine cultx - pending, UA - negative Admission and Anticipated Discharge Date Admission Date: October 13, 2020 Subjective Pt was seen and examined for follow up of SOB Lying in bed with no acute distress , breathing comfortably however on 11-12L Spiked fever yesterday Continues to have loose stools On and off ribcage discomfort, no palpitation, dizziness and SOB Contacted pulmonary to re-evaluate Pain management for ribcage pain/ back pain Discussed with ID, given fever, and not improving respiratory status, stop daptomycin and Zosyn, and patient is now on meropenem and doxycycline Review of Systems Review of Systems: All systems reviewed & are unremarkable except as noted in HPI & below Constitutional: + weakness Respiratory: + cough and + dyspnea (improved) Cardiovascular: + chest pain (ribcage discomfort); no palpitations Gastrointestinal: no abdominal pain, no nausea and no vomiting Physical Exam Physical Exam: General- elderly obese female, laying in bed, in No acute distress, on suppl. O2 Head- atraumatic Eyes- PERRL, EOMI, ENT- oropharynx clear Neck- supple, no JVD Lungs- + bibasilar crackles Heart- regular rhythm; no murmur Abdomen- normal bowel sounds, soft, nontender Extremities- no calf tenderness, moves extremities Neuro- alert, oriented x 3; PERRL, EOMI; no facial palsy; no dysarthria Skin- warm & dry Results & Data Results & Data ([facility]) Vital Signs (Past 12 Hours) Vital Signs Temp Pulse Pulse Pulse Resp BP Pulse Ox 10/31/20 07:32 36.5 C 70 16 151/56 H 94 10/31/20 05:57 66 10/31/20 05:04 36.7 C 66 18 179/71 H 94 10/31/20 00:02 36.7 C 70 18 139/63 92 Laboratory Results 10/31/20 10/31/20 10/30/20 Range/Units 05:47 05:47 20:10 WBC 8.15 (4.8-10.8) K/uL RBC 2.95 L (4.2-5.4) M/uL Hgb 8.6 L (12.0-16.0) g/dL Hct 27.9 L (37-47) % MCV 94.6 (80-100) fL MCH 29.2 (25-34) pg MCHC 30.8 L (32-36) g/dL RDW Std Deviation 53.6 H (36.4-46.3) fL RDW Coeff of Leo 15.6 H (11.5-14.5) % Plt Count 231 (130-400) K/uL MPV 10.3 (7.4-10.4) fL ABG pH ABG pCO2 ABG pO2 ABG HCO3 ABG O2 Saturation ABG Base Excess [place] Test VBG pH (7.36-7.41) VBG pCO2 (38-50) mmHg VBG pO2 mmHg VBG HCO3 mmol/L VBG O2 Saturation % VBG Base Excess mEq/L Barometric Pressure Oxygen Given Sodium 136 (136-145) mmol/L Potassium 3.7 (3.5-5.1) mmol/L Chloride 91 L (98-107) mmol/L Carbon Dioxide 41 H* (21-32) mmol/L Anion Gap 5.0 (3-11) BUN 37 H (7-18) mg/dl Creatinine 1.09 (0.6-1.2) mg/dl Est Cr Clr Drug Dosing 52.2 ml/min Est GFR ( Amer) 58.7 ml/min Est GFR (Non-Af Amer) 50.7 ml/min BUN/Creatinine Ratio 34.0 H (10-20) Glucose 98 (70-99) mg/dl Calcium 9.2 (8.5-10.1) mg/dl Phosphorus 3.5 (2.5-4.9) mg/dl Magnesium 2.1 (1.8-2.4) mg/dl NT-Pro-B Natriuret Pep (0-900) pg/ml Procalcitonin (0-0.5) ng/ml Urine Color Yellow Urine Appearance Clear (Clear) Urine pH 6.5 (4.5-7.5) Ur Specific [place] 1.017 (1.000-1.030) Urine Protein 1+ H (Negative) Urine Glucose (UA) Negative (Negative) Urine Ketones Negative (Negative) Urine Blood Negative (Negative) Urine Nitrite Negative (Negative) Urine Bilirubin Negative (Negative) Urine Urobilinogen Negative (Negative) Ur Leukocyte Esterase Negative (Negative) Urine WBC (Auto) 1-5 (0-5) /hpf Urine RBC (Auto) 0-4 (0-4) /hpf U Hyaline Cast (Auto) 1-5 (0-5) /lpf U Epithel Cells (Auto) 5-10 H (0-5) /lpf Urine Bacteria (Auto) Negative (Negative) 10/30/20 10/30/20 10/30/20 Range/Units 15:33 15:33 14:54 WBC (4.8-10.8) K/uL RBC (4.2-5.4) M/uL Hgb (12.0-16.0) g/dL Hct (37-47) % MCV (80-100) fL MCH (25-34) pg MCHC (32-36) g/dL RDW Std Deviation (36.4-46.3) fL RDW Coeff of Leo (11.5-14.5) % Plt Count (130-400) K/uL MPV (7.4-10.4) fL ABG pH ABG pCO2 ABG pO2 ABG HCO3 ABG O2 Saturation ABG Base Excess [place] Test VBG pH 7.41 (7.36-7.41) VBG pCO2 75 H (38-50) mmHg VBG pO2 40 mmHg VBG HCO3 47 mmol/L VBG O2 Saturation 75.2 % VBG Base Excess 19.3 mEq/L Barometric Pressure 730.8 Oxygen Given Sodium (136-145) mmol/L Potassium (3.5-5.1) mmol/L Chloride (98-107) mmol/L Carbon Dioxide (21-32) mmol/L Anion Gap (3-11) BUN (7-18) mg/dl Creatinine (0.6-1.2) mg/dl Est Cr Clr Drug Dosing ml/min Est GFR ( Amer) ml/min Est GFR (Non-Af Amer) ml/min BUN/Creatinine Ratio (10-20) Glucose (70-99) mg/dl Calcium (8.5-10.1) mg/dl Phosphorus (2.5-4.9) mg/dl Magnesium (1.8-2.4) mg/dl NT-Pro-B Natriuret Pep 9638 H (0-900) pg/ml Procalcitonin 0.16 (0-0.5) ng/ml Urine Color Urine Appearance (Clear) Urine pH (4.5-7.5) Ur Specific [place] (1.000-1.030) Urine Protein (Negative) Urine Glucose (UA) (Negative) Urine Ketones (Negative) Urine Blood (Negative) Urine Nitrite (Negative) Urine Bilirubin (Negative) Urine Urobilinogen (Negative) Ur Leukocyte Esterase (Negative) Urine WBC (Auto) (0-5) /hpf Urine RBC (Auto) (0-4) /hpf U Hyaline Cast (Auto) (0-5) /lpf U Epithel Cells (Auto) (0-5) /lpf Urine Bacteria (Auto) (Negative) 10/30/20 10/30/20 Range/Units 10:25 05:00 WBC (4.8-10.8) K/uL RBC (4.2-5.4) M/uL Hgb (12.0-16.0) g/dL Hct (37-47) % MCV (80-100) fL MCH (25-34) pg MCHC (32-36) g/dL RDW Std Deviation (36.4-46.3) fL RDW Coeff of Leo (11.5-14.5) % Plt Count (130-400) K/uL MPV (7.4-10.4) fL ABG pH Cancelled ABG pCO2 Cancelled ABG pO2 Cancelled ABG HCO3 Cancelled ABG O2 Saturation Cancelled ABG Base Excess Cancelled [place] Test Cancelled VBG pH (7.36-7.41) VBG pCO2 (38-50) mmHg VBG pO2 mmHg VBG HCO3 mmol/L VBG O2 Saturation % VBG Base Excess mEq/L Barometric Pressure Cancelled Oxygen Given Cancelled Sodium (136-145) mmol/L Potassium (3.5-5.1) mmol/L Chloride (98-107) mmol/L Carbon Dioxide 49 H* (21-32) mmol/L Anion Gap -2.0 L (3-11) BUN (7-18) mg/dl Creatinine (0.6-1.2) mg/dl Est Cr Clr Drug Dosing ml/min Est GFR ( Amer) ml/min Est GFR (Non-Af Amer) ml/min BUN/Creatinine Ratio (10-20) Glucose (70-99) mg/dl Calcium (8.5-10.1) mg/dl Phosphorus (2.5-4.9) mg/dl Magnesium (1.8-2.4) mg/dl NT-Pro-B Natriuret Pep (0-900) pg/ml Procalcitonin (0-0.5) ng/ml Urine Color Urine Appearance (Clear) Urine pH (4.5-7.5) Ur Specific [place] (1.000-1.030) Urine Protein (Negative) Urine Glucose (UA) (Negative) Urine Ketones (Negative) Urine Blood (Negative) Urine Nitrite (Negative) Urine Bilirubin (Negative) Urine Urobilinogen (Negative) Ur Leukocyte Esterase (Negative) Urine WBC (Auto) (0-5) /hpf Urine RBC (Auto) (0-4) /hpf U Hyaline Cast (Auto) (0-5) /lpf U Epithel Cells (Auto) (0-5) /lpf Urine Bacteria (Auto) (Negative) Medications Administered Current Inpatient Medications Acetaminophen (Acetaminophen 325 Mg Tab) 650 mg PO Q4H PRN PRN Reason: Pain or Fever Stop: 11/12/20 16:43 Last Admin: 10/30/20 12:39 Dose: 650 mg Documented by: Al Hydrox/Mg Hydrox/Simethicone (Aluminum/Magnesium Susp 30 Ml Udc) 15 ml PO Q6H PRN PRN Reason: dyspepsia Stop: 11/21/20 13:14 Last Admin: 10/23/20 09:57 Dose: 15 ml Documented by: Amitriptyline HCl (Amitriptyline Hcl 25 Mg Tab) 25 mg PO HS ROBERT Stop: 11/12/20 20:59 Last Admin: 10/30/20 21:30 Dose: 25 mg Documented by: Atorvastatin Calcium (Atorvastatin 20 Mg Tab) 20 mg PO HS ROBERT Stop: 11/12/20 20:59 Last Admin: 10/30/20 20:27 Dose: 20 mg Documented by: Benzonatate (Benzonatate 100 Mg Capsule) 100 mg PO TID PRN PRN Reason: Cough Stop: 11/24/20 22:46 Last Admin: 10/26/20 06:42 Dose: 100 mg Documented by: Benzonatate (Benzonatate 100 Mg Capsule) 100 mg PO TID ROBERT Stop: 11/25/20 11:24 Last Admin: 10/30/20 20:26 Dose: 100 mg Documented by: Duloxetine HCl (Duloxetine Hcl 20 Mg Cap) 20 mg PO QAM ROBERT Stop: 11/27/20 08:59 Last Admin: 10/30/20 09:46 Dose: 20 mg Documented by: Ferrous Sulfate (Ferrous Sulfate 325 Mg Tab) 325 mg PO DAILY ROBERT Stop: 11/13/20 08:59 Last Admin: 10/30/20 09:46 Dose: 325 mg Documented by: Fluticasone Propionate (Fluticasone Propionate Na Spr 16 Gm Btl) 2 sprays NA RI N PRN PRN Reason: Congestion Stop: 11/29/20 12:29 Last Admin: 10/30/20 20:29 Dose: 2 sprays Documented by: Fluticasone/Vilanterol (Fluticasone/Vilanterol 100/25mcg 14 Puffs/Inhaler) 1 puffs INH DAILY ROBERT Stop: 11/13/20 08:59 Last Admin: 10/30/20 09:46 Dose: 1 puffs Documented by: Furosemide (Furosemide 20 Mg Tab) 20 mg PO BID17 ROBERT Stop: 11/28/20 08:59 Last Admin: 10/30/20 08:54 Dose: Not Given Documented by: Guaifenesin (Guaifenesin 600 Mg Tabcr) 1,200 mg PO Q12 ROBERT Stop: 11/28/20 08:59 Last Admin: 10/30/20 20:26 Dose: 1,200 mg Documented by: Heparin Sodium (Beef Lung) (Heparin 10 Unit/Ml 5 Ml Flush) 5 ml FLUSH PRN PRN PRN Reason: Flush Stop: 11/13/20 08:12 Last Admin: 10/30/20 23:19 Dose: 5 ml Documented by: Pantoprazole Sodium 40 mg/ (Syringe) 10 mls @ 5 mls/min IV BID ROBERT Stop: 11/13/20 20:59 Last Admin: 10/30/20 20:27 Dose: 5 mls/min Documented by: Daptomycin 900 mg/ Syringe 18 mls @ 9 mls/min IV Q24H ROBERT; Protocol Stop: 11/05/20 23:59 Last Admin: 10/30/20 12:39 Dose: 9 mls/min Documented by: Piperacillin Sod/Tazobactam (Sod 4.5 gm/ Dextrose) 120 mls @ 30 mls/hr IV Q8H [facility]; Protocol Stop: 10/31/20 13:59 Last Admin: 10/31/20 05:31 Dose: 30 mls/hr Documented by: Furosemide 20 mg/ Syringe 2 mls @ 4 mls/min IV BID ROBERT Stop: 11/29/20 08:59 Last Admin: 10/30/20 09:47 Dose: 4 mls/min Documented by: Doxycycline Hyclate 100 mg/ (Dextrose) 110 mls @ 50 mls/hr IV Q12H [facility] Stop: 11/07/20 06:59 Ipratropium Washta (Ipratropium [place] Neb Soln 0.02% 2.5 Ml Vial) 0.5 mg INH BIDR [facility] Stop: 11/25/20 18:59 Last Admin: 10/30/20 23:40 Dose: Not Given Documented by: Lactobacillus Acidoph/Casei/Rhamnos (Advanced Probiotic 1250 Mg Capsule) 2 cap PO DAILY [facility] Stop: 11/19/20 10:29 Last Admin: 10/30/20 09:48 Dose: 2 cap Documented by: Levalbuterol HCl (Levalbuterol 1.25mg/0.5ml Neb) 1.25 mg INH BIDR [facility] Stop: 11/25/20 18:59 Last Admin: 10/30/20 23:40 Dose: Not Given Documented by: Lidocaine (Lidocaine 5% 1 Patch) 1 patch TD DAILY [facility] Stop: 11/13/20 08:59 Last Admin: 10/30/20 09:48 Dose: Not Given Documented by: Lisinopril (Lisinopril 5 Mg Tab) 5 mg PO DAILY [facility] Stop: 11/13/20 08:59 Last Admin: 10/14/20 07:48 Dose: 5 mg Documented by: Lorazepam (Lorazepam 0.5 Mg Tab) 0.5 mg PO QID PRN PRN Reason: Anxiety Stop: 11/14/20 08:21 Last Admin: 10/31/20 05:05 Dose: 0.5 mg Documented by: Metoprolol Succinate (Metoprolol Succ 25mg Ext Rel Tab) 25 mg PO QAM [facility] Stop: 11/24/20 01:34 Last Admin: 10/30/20 09:49 Dose: 25 mg Documented by: Miconazole Nitrate (Miconazole Nitrate Powder 43 Gm) 1 appln EXT BID [facility] Stop: 11/24/20 22:59 Last Admin: 10/30/20 20:28 Dose: 1 appln Documented by: Miscellaneous (Remove Lidoderm Patch) 1 ea N/A DAILY@2100 [facility] Stop: 11/12/20 20:59 Last Admin: 10/30/20 20:28 Dose: 1 ea Documented by: Miscellaneous Information (Daptomycin Consult Active) 1 ea N/A UD PRN PRN Reason: Consult Stop: 11/16/20 11:06 Miscellaneous Information (Piperacill/Tazobac Consult Active) 1 ea N/A UD PRN PRN Reason: Consult Stop: 10/31/20 13:59 Montelukast Sodium (Montelukast Sodium 10 Mg Tablet) 10 mg PO HS [facility] Stop: 11/12/20 20:59 Last Admin: 10/30/20 20:27 Dose: 10 mg Documented by: Morphine Sulfate (Morphine Sulfate 2 Mg/Ml Carp) 1 mg IV Q6H PRN PRN Reason: Pain uncontrolled by PO meds Stop: 11/09/20 11:24 Last Admin: 10/30/20 23:19 Dose: 1 mg Documented by: Multivitamins (Multivitamin Tab) 1 tab PO QAM [facility] Stop: 11/13/20 08:59 Last Admin: 10/30/20 09:49 Dose: 1 tab Documented by: Nitroglycerin (Nitroglycerin Sl 0.4 Mg/Tab Tab) 0.4 mg SL PRN PRN PRN Reason: cp Stop: 11/23/20 23:50 Last Admin: 10/25/20 01:08 Dose: 0.4 mg Documented by: Ondansetron HCl (Ondansetron 2 Mg Od Tab) 2 mg PO Q4H PRN PRN Reason: Nausea And Vomiting Stop: 11/16/20 12:59 Last Admin: 10/29/20 07:34 Dose: 2 mg Documented by: Oxycodone HCl (Oxycodone Hcl Ir 5 Mg Tab (Immediate Release)) 5 mg PO Q6H PRN PRN Reason: pain Stop: 11/08/20 17:44 Last Admin: 10/31/20 07:49 Dose: 5 mg Documented by: Polyethylene Glycol (Polyethylene (Miralax) 17 Gm Pack) 17 gm PO BID PRN PRN Reason: constipation Stop: 11/16/20 20:59 Prednisone (Prednisone 20 Mg Tab) 40 mg PO DAILY ROBERT Stop: 11/27/20 08:59 Last Admin: 10/30/20 10:03 Dose: 40 mg Documented by: Pregabalin (Pregabalin 100 Mg Cap) 100 mg PO BID ROBERT Stop: 11/26/20 20:59 Last Admin: 10/30/20 20:26 Dose: 100 mg Documented by: Sodium Chloride (Sodium Chlor 7% 4 Ml Neb) 4 ml NEB BIDR ROBERT Stop: 11/23/20 18:59 Last Admin: 10/30/20 23:40 Dose: Not Given Documented by: Trazodone HCl (Trazodone Hcl 50 Mg Tab) 50 mg PO HS ROBERT Stop: 11/12/20 20:59 Last Admin: 10/30/20 21:30 Dose: 50 mg Documented by: Umeclidinium [place] (Umeclidinium [place] 62.5mcg/Blister 7 Puffs/Inhaler) 1 puffs INH DAILY ROBERT Stop: 11/13/20 08:59 Last Admin: 10/30/20 09:50 Dose: 1 puffs Documented by: Vitamin D (Cholecalciferol 1,000 Units 25 Mcg Tab) 5,000 units PO DAILY ROBERT Stop: 11/13/20 08:59 Last Admin: 10/30/20 09:45 Dose: 5,000 units Documented by: (1) Congestive heart failure Heart failure chronicity: acute Heart failure type: unspecified Qualified Code(s): I50.9 - Heart failure, unspecified (2) Anemia Anemia type: unspecified type Qualified Code(s): D64.9 - Anemia, unspecified (3) COPD (chronic obstructive pulmonary disease) COPD type: unspecified COPD Qualified Code(s): J44.9 - Chronic obstructive pulmonary disease, unspecified
[2020-10-31] MEDS: LEVALBUTEROL 1.25MG/0.5ML NEB INH SCH ×2 (08:30→20:17)
[2020-10-31] MEDS: SODIUM CHLOR 7% 4 ML NEB NEB SCH ×2 (08:31→20:17)
[2020-10-31] MEDS: IPRATROPIUM BROMIDE NEB SOLN 0.02% 2.5 ML VIAL INH SCH ×2 (08:31→20:16)
--- NOTE | 2020-10-31 08:56 | Pain Management Consultation ---
Date of Consultation October 31, 2020 Assessment & Plan (1) Musculoskeletal chest pain: (2) Buttock pain: Buttock pain and chest pain as improved. Do not recommend any changes. Continue medication regimen. Not a candidate for any interventional procedures. Will sign off on the patient. Please call with any questions or concerns. History of Present Illness Attending Physician: Dada Dhaliwal MD History of Present Illness Consulted for buttock and rib pain. Patient reports a 7 year history of buttock pain. She describes a burning pain along the lower buttock region. Denies any aggravating or alleviating symptoms. Patient states that the pain has improved since yesterday as she got bathed and has a moisturizer cream on the area. The pain along the left anterior chest started during admission. She states that the pain in the chest has improved. She has no longer required Lidocaine patches. She states that the pain in the chest has improved. She does have Oxycodone PO and Morphine IV ordered which she does use typically twice a day for pain and to help with sleep. Pain Assessment Full Body Front + Back: 1. 2. [facility] Combined Pain Scale: 2-Minimal - Able to engage in pleasures of life with some interference Allergies Allergy/AdvReac Type Severity Reaction Status Date / Time No Known Allergies Allergy Verified 10/13/20 10:10 Home Medications Medication Instructions Recorded Confirmed Type ergocalciferol (vitamin D2) 50,000 unit PO WK 10/07/18 10/13/20 History [Vitamin D2] furosemide [Lasix] 20 mg PO BID 10/07/18 10/13/20 History montelukast [Singulair] 10 mg PO HS 10/07/18 10/13/20 History pantoprazole [Protonix] 40 mg PO QAM 10/07/18 10/13/20 History trazodone 50 mg PO HS 10/07/18 10/13/20 History metoprolol succinate [Toprol XL] 25 mg PO QAM 04/30/19 10/13/20 History aspirin 81 mg PO QAM 06/14/19 10/13/20 History lorazepam [Ativan] 1 mg PO TID PRN 07/13/20 10/13/20 History ascorbic acid (vitamin C) 500 mg 500 mg PO BID 08/27/20 10/13/20 History tablet citalopram 20 mg tablet 10 mg PO QAM tab 08/27/20 10/13/20 History guaifenesin 100 mg/5 mL oral liquid 100 mg PO Q4H PRN ml 08/27/20 10/13/20 History multivitamin 1 tab PO QAM 09/01/20 10/13/20 History Trelegy Ellipta 1 inh INHALATION QAM 09/13/20 10/13/20 History ondansetron HCl 4 mg PO Q6H PRN 09/13/20 10/13/20 History acetaminophen 650 mg PO Q4H PRN 10/13/20 10/13/20 History amitriptyline 25 mg PO HS 10/13/20 10/13/20 History atorvastatin 20 mg PO HS 10/13/20 10/13/20 History bisacodyl 10 mg ND DAILY PRN 10/13/20 10/13/20 History cholecalciferol (vitamin D3) 125 mcg PO DAILY 10/13/20 10/13/20 History [Vitamin D3] daptomycin 900 mg IV DAILY 10/13/20 10/13/20 History docusate sodium 100 mg PO BID 10/13/20 10/13/20 History enoxaparin [Lovenox] 40 mg SUBCUT Q12H 10/13/20 10/13/20 History ferrous sulfate 325 mg PO DAILY 10/13/20 10/13/20 History hydromorphone 1 mg PO Q4H PRN 10/13/20 10/13/20 History ipratropium-albuterol [Combivent 1 puff INHALATION QID PRN 10/13/20 10/13/20 History Respimat] lidocaine 5 % topical patch 1 patch TOPICAL DAILY ea 10/13/20 History lisinopril 5 mg PO DAILY 10/13/20 10/13/20 History magnesium hydroxide [Milk of 30 ml PO DAILY PRN 10/13/20 10/13/20 History Magnesia] naloxone [Narcan] 0.1 mg INTRANASAL UD 10/13/20 10/13/20 History polyethylene glycol 3350 [Miralax] 17 g PO DAILY PRN 10/13/20 10/13/20 History pregabalin 150 mg PO TID 10/13/20 10/13/20 History sennosides-docusate sodium 1 tab-cap PO DAILY PRN 10/13/20 10/13/20 History [Senokot-S] simethicone 80 mg PO TID PRN 10/13/20 10/13/20 History sodium phosphates [Fleet Enema] 118 ml ND DAILY PRN 10/13/20 10/13/20 History Patient History Medical History Anxiety Chest pain Chronic indwelling Gonzalez catheter CKD (chronic kidney disease) stage 3, GFR 30-59 ml/min Baseline creatine around 1.2 COPD (chronic obstructive pulmonary disease) on 3 liters of oxygen per records Depression Diastolic CHF due to valvular disease GERD (gastroesophageal reflux disease) History of pulmonary embolism 2013 Hyperlipidemia Hypertension Lumbar radiculopathy Macular degeneration Moderate aortic stenosis Per 07/14/20 ECHO: PATO 1.3-1.6 cm; AV peak velocity 3.52 m/s; AV mean gradient 21.1 mmHg Morbid obesity Poor vision Recurrent UTI Urinary retention with incomplete bladder emptying Wheezing Surgical History History of cholecystectomy History of hysterectomy History of right knee surgery History of surgery Right distal femur periprosthetic open reduction 07/14/20 and right femur I&D History of total left knee replacement History of total right hip arthroplasty History of total right knee replacement Family History Other Cancer Social History Smoking Status: Former smoker Second Hand Exposure: No; Do You Dip or Chew Tobacco: No; Tobacco Cessation Education Requested by Patient: No Hx Alcohol Use: No Hx Substance Use: No Preferred Language: Macedonian Communication Ability: Effective Securities Attorney Required: No Beliefs That Will Affect Care: None marital status: / Current Living Situation: Alone Current Living Situation Comment: [facility] resident current occupational status: retired Other Information That Helps Us Care for You: No Feels Safe at Home: No Is there a partner from a previous relationship who is making you feel unsafe now?: No Any Concerns about Your Family Situation: No Would You Like to Speak to Someone About Your Situation: No Safety Concerns: Feels Safe At This Time Assistive Devices: Oxygen - Continuous Physical Exam Physical Exam: GENERAL: This is a 70 year old female. In no acute distress. Wearing oxygen via nasal canula. HEAD/FACE: Normocephalic and atraumatic. EYES: No drainage or conjunctival injection. ENT: Nose without bleeding or discharge. Oral mucosa moist. NECK: Full ROM without apparent pain. No swelling or masses noted. CHEST/AXILLA: Chest movement symmetrical. No deformities noted. No tenderness to palpation of chest wall. ABDOMEN/GI: No distension BACK: Moves without difficulty. There is no midline, SI joint, or facet joint tenderness. No lumbosacral tenderness. There is no paraspinal, quadratus lumborum, piriformis, or gluteal tenderness or spasm. There is moisturizer cream in the crease of buttock. SKIN: [place], warm and dry. No rash noted. MS/EXTREMITY: No swelling, no deformities. Moving extremities appropriately. NEURO: Alert and appears oriented. Speech is fluent. Cranial Nerves are grossly intact. PSYCH: Alert, pleasant, affect is calm
--- NOTE | 2020-10-31 09:32 | Pulmonology Progress Note ---
Date of Service October 31, 2020 Assessment & Plan (1) Acute on chronic respiratory failure with hypoxia and hypercapnia: (2) Abnormal CT scan of lung: (3) Acute on chronic diastolic CHF (congestive heart failure): Impression: 70-year-old female with a host of medical issues including morbid obesity, hypoxemic and hypercarbic respiratory failure, chronic kidney disease, grade 2 diastolic dysfunction, reported COPD, and bedbound status with recent extensive orthopedic surgery for infection performed at [place]. Recommendations: 1. Hypoxemic respiratory failure: Chest x-ray looks better. Procalcitonin was negative however BNP is markedly elevated. Recommend continued diuresis. Her serum bicarb is elevated however last blood gas showed an acidemic pH so I would be reluctant to use Diamox. Patient really needs to get out of bed and be compliant with incentive spirometry and pulmonary toilet. Unclear if this is feasible. 2. Hypercarbic respiratory failure: Advised the patient that she really needs to be compliant with CPAP or BiPAP. She states that she has tried it and r efuses to use the mask is too uncomfortable. She understands that this may be the only solution to improving her CO2 retention. She again declines therapy. I asked her if she would reconsider if it meant the difference between living and dying and she again states that she does not want to be compliant with CPAP or BiPAP. Her elevated CO2 levels are significantly contributing to her hypoxemia and correction of CO2 would significantly improve her oxygenation. 3. Fevers: Per primary service. 4. Reported COPD: The patient does not appear bronchospastic currently. No indication for additional steroids or inhalers currently. 5. Abnormal chest x-ray: The patient has dense consolidation of the upper lobe. This may take weeks to resolve if it resolves. It may be fibrotic at this point in time. Would continue to manage potentially modifiable issues as noted above. Unfortunately, I think I have little else to offer this patient at this point time. Please call if we can be of additional assistance. We will sign off at this point time Admission and Anticipated Discharge Date Admission Date: October 13, 2020 Subjective Attempted to see patient however she was off the floor. Nursing notes and clinical notes were reviewed. Review of Systems Review of Systems: Deferred Physical Exam Physical Exam: Deferred Results & Data Results & Data ([facility]) Vital Signs (Past 12 Hours) Vital Signs Temp Pulse Pulse Pulse Resp BP Pulse Ox 10/31/20 08:33 79 20 91 10/31/20 07:32 36.5 C 70 16 151/56 H 94 10/31/20 05:57 66 10/31/20 05:04 36.7 C 66 18 179/71 H 94 10/31/20 00:02 36.7 C 70 18 139/63 92 I/O: -1341 Laboratory Results 10/31/20 05:47 10/31/20 05:47 10/15/20 10/25/20 10/25/20 03:51 00:06 04:54 ABG pH 7.36 7.30 L ABG pCO2 70 H 84 H ABG pO2 60 L 84 ABG HCO3 39 H 40 H ABG O2 Saturation 91.7 95.2 H ABG Base Excess 11.2 H 10.8 H VBG pH 7.32 L VBG pCO2 79 H VBG pO2 48 VBG HCO3 39 VBG O2 Saturation 83.4 VBG Base Excess 10.9 10/25/20 10/30/20 10/30/20 06:28 10:25 15:33 ABG pH 7.33 L Cancelled ABG pCO2 78 H Cancelled ABG pO2 81 Cancelled ABG HCO3 40 H Cancelled ABG O2 Saturation 95.1 H Cancelled ABG Base Excess 11.8 H Cancelled VBG pH 7.41 VBG pCO2 75 H VBG pO2 40 VBG HCO3 47 VBG O2 Saturation 75.2 VBG Base Excess 19.3 BNP 9638 Procal 0.16 UA negative I/O: -1351 Diagnostic Findings X-ray from yesterday demonstrated dense consolidation in the upper lobe with some improvement in the other parenchymal opacities. PG Care Time/CCT Total # of Minutes Spent Total Time Spent with Patient: Total time spent is greater than 50% in coordination of care (as documented) at patient's floor/unit and/or counseling patient: Coding Level of Care Code 37642 Subseq Hosp Care Lvl 1 Diagnoses Acute on chronic respiratory failure with hypoxia and hypercapnia J96.21; J96.[address] scan of lung R91.8 Acute on chronic diastolic CHF (congestive heart failure) I50.33
--- NOTE | 2020-10-31 09:51 | CT Scan Report ---
CT chest diagnostic wo con CLINICAL HISTORY: Necrotizing pneumonia. Evaluate for pulmonary abscess. COMPARISON STUDY: 10/24/2020 CT DOSE: 924.39 mGy.cm TECHNIQUE: CT of the thorax was performed from the thoracic inlet to the lung bases. Images are revi ewed in the axial, sagittal, and coronal planes. IV contrast was not administered for this examinatio n. A dose lowering technique was utilized adhering to the principles of ALARA. FINDINGS: Thyroid: Imaged portions of the thyroid gland are normal in appearance. Thoracic aorta: The thoracic aorta is normal in course and caliber, noting standard 3 vessel arch gaby jose l. Heart: There are coronary artery calcifications. There is no significant pericardial effusion. Lungs and pleural spaces: There are small bilateral pleural effusions. There is underlying pulmonary emphysema. There is right lower lobe atelectasis/consolidation. There are extensive right upper lobe pulmonary airspace opacities with air bronchograms. There is slight improvement in the aeration of th e right upper lobe. Several right upper lobe pulmonary nodules are again visualized, the largest of w hich measures 6 mm. There is a stable 6 mm subpleural left upper lobe pulmonary nodule. There is a st able 5 mm left lower lobe pulmonary nodule. There is progressive left upper lobe and left lower lobe atelectasis/consolidation. Mediastinum: There are minimally enlarged mediastinal lymph nodes, likely reactive. There is contrast within a presumed distal esophageal diverticulum. There is mild esophageal wall thickening similar t o the prior study. Cristina: The hilar structures are poorly evaluated due to the lack of intravenous contrast Axilla: There is no evidence of pathologic axillary lymphadenopathy. Upper abdomen: There is right renal atrophy. Skeletal structures: There are no lytic or blastic osseous lesions. IMPRESSION: 1. Pulmonary emphysema 2. Persistent mild adenopathy, likely reactive 2. Persistent bilateral pleural effusions 4. Extensive right lung pulmonary consolidation, likely secondary to a pneumonia. There is mild impro vement in the aeration of the right upper lobe anteriorly. 5. Slight progression in the left upper lobe and left lower lobe areas of atelectasis/consolidation 6. Multiple subcentimeter solid pulmonary nodules, similar to the prior study ACT 112: Negative or not required by law. Electronically signed by: Rakan Azul M.D. 10/31/2020 9:49 AM
[2020-10-31] MEDS: PANTOprazole 40 MG in SYRINGE 0 ML IV SCH ×2 (10:12→20:25)
[2020-10-31] MEDS: FLUTICASONE/VILANTEROL 100/25MCG 14 PUFFS/INHALER INH SCH (10:12)
[2020-10-31] MEDS: PREGABALIN 100 MG CAP PO SCH ×2 (10:17→20:25)
--- NOTE | 2020-10-31 13:14 | Orthopedic Progress Note ---
Date of Service October 31, 2020 Assessment & Plan (1) Right femoral fracture: S/p ORIF right periprosthetic femur fracture with subsequent post op infection with MRSA, then S/p I&D, revision ORIF right femur in [place] Reassured patient that I do not think that her fever are coming from any type of wound or joint injection today. She is happy about this. Showed incisions and exam to telehealth physician and he also agrees. She can continue to be out of bed, WBAT RLE, full ROM right lower extremity Continue antibiotics as ordered Findings discussed with Dr. Tobar. Please call us with any further questions or concerns. Follow up with [facility] - Dr. Kaba as planned. Admission and Anticipated Discharge Date Admission Date: October 13, 2020 Subjective Patient resting in bed, no complaints of pain in right leg. States that she does have pain with movement of her leg when she tries to move her leg herself. During my visit she was also doing a telehealth appointment with ID. I assisted with him being able to see the wounds of her right leg. She's had fever last evening. Orthopedics was asked to come back to make sure that there was no infection source from her incision or her right knee. Also some reports from patient that her nurse stated that it was "hot this morning". Physical Exam Physical Exam: Incisions assessed. No active drainage. Proximal incision nontender, no edema or induration. No active drainage. Nontender to palpation. No warmth, erythema or ecchymosis. She is able to actively SLR RLE off her bed 3 inches or so. Trace effusion right knee joint, but nontender to palpation, tolerates active ROM to 70 degrees today, no pain with passive ROM of right knee or right hip. previous incision right knee - anterior healed. Distal incision is healed, no active drainage, less induration and redness than even 3 days ago. No surrounding fluctuance. No tenderness with palpation of incision. Minimal erythema and mild warmth, but not hot. Results & Data ([facility]) Vital Signs (Past 12 Hours) Vital Signs Temp Pulse Pulse Pulse Resp BP Pulse Ox 10/31/20 11:54 36.8 C 70 16 161/58 H 92 10/31/20 08:33 79 20 91 10/31/20 07:32 36.5 C 70 16 151/56 H 94 10/31/20 05:57 66 10/31/20 05:04 36.7 C 66 18 179/71 H 94
[2020-10-31] MEDS ORDERED: MEROPENEM CONSULT ACITVE PRN (13:57)
--- NOTE | 2020-10-31 13:58 | Palliative Care Progress Note ---
Date of Service October 31, 2020 Assessment & Plan (1) Acute on chronic respiratory failure with hypoxia and hypercapnia: (2) Palliative care encounter: Patient sitting in her bed, resting during my encounter. She states she is tired because she has had so many medical providers visit with her today. She reports having a fever last night. Per review of notes, does not appear to be related to her wound. She has been taking Oxy IR 5 mg PO Q6 PRN and she has taken two doses. She also has Morphine 1 mg IV Q6 and has taken one dose. I would be reluctant to start anything long acting for this individual at this time as she is not utilizing many breakthrough doses. She has been refusing the Lidocaine patches intermittently. She has been tolerating the Duloxetine and Ativan has also been helping. I would suggest scheduling routine Ativan for this individual as her anxiety is triggered easily and does not seem to lessen. I would schedule her Ativan in the morning since most of her doses have been requested in the earlier part of the day. Continue PRN dosing as well. Overall goals were not discussed today. Palliative will follow. (3) Congestive heart failure: (4) COPD (chronic obstructive pulmonary disease): (5) Pulmonary hypertension: (6) Aspiration pneumonia: Admission and Anticipated Discharge Date Admission Date: October 13, 2020 Subjective Patient was sitting in her bed, resting when I saw her. She has had quite a few medical providers visit her today and she said she was tired. She reports having fevers and states she has been more anxious. See A/P for further details. Review of Systems Review of Systems: [place] Symptom Assessment Scale Pain 1/3 Dyspnea 1/3 Nausea 0/3 Anxiety 3/3 Fatigue 2/3 Palliative Performance Score 30% Physical Exam Constitutional: no acute distress Respiratory: no labored breathing Cardiovascular: Rate/Rhythm: regular rate and regular rhythm Heart Sounds: normal S1 and normal S2 Extremities: normal capillary refill and + edema Gastrointestinal (Abdomen): Inspection/Auscultation: abdomen normal to inspection Psychiatric: Orientation: alert and oriented x 3 Eye Contact: good eye contact Affect: + anxious affect Mood: + depressed mood Results & Data ([facility]) Vital Signs (Past 12 Hours) Vital Signs Temp Pulse Pulse Pulse Resp BP Pulse Ox 10/31/20 13:06 66 10/31/20 11:54 36.8 C 70 16 161/58 H 92 10/31/20 08:33 79 20 91 10/31/20 07:32 36.5 C 70 16 151/56 H 94 10/31/20 05:57 66 10/31/20 05:04 36.7 C 66 18 179/71 H 94 PG Care Time/CCT Total # of Minutes Spent Total Time Spent with Patient: Total time spent is greater than 50% in c oordination of care (as documented) at patient's floor/unit and/or counseling patient:35 minutes with > 50% of that time spent assessing the patient, discussing symptom management with patient and collaborating with IDT Coding Level of Care Code 53402 Subseq Hosp Care Lvl 3 Diagnoses Acute on chronic respiratory failure with hypoxia and hypercapnia J96.21; J96.22 Palliative care encounter Z51.5 Congestive heart failure I50.9 Heart failure chronicity: acute Heart failure type: unspecified COPD (chronic obstructive pulmonary disease) J44.9 COPD type: unspecified COPD Pulmonary hypertension I27.20 Aspiration pneumonia J69.0 Time Spent (min) 35 (1) Congestive heart failure Heart failure chronicity: acute Heart failure type: unspecified Qualified Code(s): I50.9 - Heart failure, unspecified (2) COPD (chronic obstructive pulmonary disease) COPD type: unspecified COPD Qualified Code(s): J44.9 - Chronic obstructive pulmonary disease, unspecified
[2020-10-31] MEDS: DAPTOmycin 900 MG in SYRINGE 0 ML IV SCH (15:07)
[2020-10-31] MEDS: MEROPENEM 500 MG in SYRINGE 0 ML IV SCH ×2 (15:11→20:24)
[2020-10-31] MEDS: traZODone HCL 50 MG TAB PO SCH (20:25)
[2020-10-31] MEDS: MoRPHine SULFATE 2 MG/ML CARP IV PRN (20:25)
[2020-10-31] MEDS: MONTELUKAST SODIUM 10 MG TABLET PO SCH (20:25)
[2020-10-31] MEDS: ATORVASTATIN 20 MG TAB PO SCH (20:26)
[2020-10-31] MEDS: AMITRIPTYLINE HCL 25 MG TAB PO SCH (20:45)
[2020-11-01] MEDS: MEROPENEM 500 MG in SYRINGE 0 ML IV SCH ×4 (02:34→20:32)
[2020-11-01] MEDS: LORazepam 0.5 MG TAB PO PRN ×2 (03:16→17:33)
[2020-11-01] MEDS: ACETAMINOPHEN 325 MG TAB PO PRN (03:16)
[2020-11-01] MEDS: DOXYCYCLINE HYCLATE 100 MG in DEXTROSE 5% 100 ML IV SCH ×2 (06:11→18:43)
[2020-11-01] MEDS: SODIUM CHLOR 7% 4 ML NEB NEB SCH ×2 (08:05→19:43)
[2020-11-01] MEDS: IPRATROPIUM BROMIDE NEB SOLN 0.02% 2.5 ML VIAL INH SCH ×2 (08:05→19:42)
[2020-11-01] MEDS: LEVALBUTEROL 1.25MG/0.5ML NEB INH SCH ×2 (08:05→19:42)
[2020-11-01] MEDS: oxyCODONE HCL IR 5 MG TAB (IMMEDIATE RELEASE) PO PRN ×2 (08:17→20:31)
[2020-11-01] MEDS: FUROSEMIDE 20 MG in SYRINGE 0 ML IV SCH ×2 (08:31→20:32)
[2020-11-01] MEDS: methylPREDNISolone 40 MG in SYRINGE 0 ML IV SCH (08:31)
[2020-11-01 08:39] LABS: Basophils # (auto) 0.01 K/uL (0-0.2); Basophils % (auto) 0.1 %; Eosinophils # (auto) 0.13 K/uL (0-0.5); Eosinophils % (auto) 1.1 %; Hematocrit (blood only) 30.8 % (37-47); Hemoglobin 9.6 g/dL (12.0-16.0); Immature Granulocytes # (auto) 0.04 K/uL (0.00-0.02); Immature Granulocytes % (auto) 0.3 %; Lymphocytes # (auto) 1.49 K/uL (1.2-3.4); Lymphocytes % (auto) 12.6 %; Mean Corpuscular Hemoglobin 28.8 pg (25-34); Mean Corpuscular Hgb Conc 31.2 g/dL (32-36); Mean Corpuscular Volume 92.5 fL (80-100); Mean Platelet Volume 10.5 fL (7.4-10.4); Monocytes # (auto) 0.67 K/uL (0.11-0.59); Monocytes % (auto) 5.7 %; Neutrophils # (auto) 9.46 K/uL (1.4-6.5); Neutrophils % (auto) 80.2 %; Platelet Count 229 K/uL (130-400); RDW Coefficient of Variation 15.7 % (11.5-14.5); RDW Standard Deviation 53.1 fL (36.4-46.3); Red Blood Count 3.33 M/uL (4.2-5.4)
[2020-11-01] MEDS: BENZONATATE 100 MG CAPSULE PO SCH ×3 (08:42→20:34)
[2020-11-01] MEDS: CHOLECALCIFEROL 1,000 UNITS 25 MCG TAB PO SCH (08:43)
[2020-11-01] MEDS: DULoxetine HCL 20 MG CAP PO SCH (08:43)
[2020-11-01] MEDS: FERROUS SULFATE 325 MG TAB PO SCH (08:43)
[2020-11-01] MEDS: FLUTICASONE/VILANTEROL 100/25MCG 14 PUFFS/INHALER INH SCH (08:44)
[2020-11-01] MEDS: guaiFENesin 600 MG TABCR PO SCH ×2 (08:44→20:32)
[2020-11-01] MEDS: ADVANCED PROBIOTIC 1250 MG CAPSULE PO SCH (08:44)
[2020-11-01] MEDS: METOPROLOL SUCC 25MG EXT REL TAB PO SCH (08:45)
[2020-11-01] MEDS: LIDOCAINE 5% 1 PATCH TD SCH (08:45)
[2020-11-01] MEDS: MULTIVITAMIN TAB PO SCH (08:46)
[2020-11-01] MEDS: MICONAZOLE NITRATE POWDER 43 GM EXT SCH ×2 (08:46→20:35)
[2020-11-01] MEDS: UMECLIDINIUM BROMIDE 62.5MCG/BLISTER 7 PUFFS/INHALER INH SCH (08:47)
[2020-11-01] MEDS: PREGABALIN 100 MG CAP PO SCH ×2 (08:47→20:31)
[2020-11-01 09:08] LABS: BUN Creatinine Ratio 41.4 (10-20); Calcium 10.4 mg/dl (8.5-10.1); Creatinine Clr Calc Pharmacy 61.5 ml/min; Est GFR (African American) 67.6 ml/min; Est GFR (Non-African American) 58.3 ml/min; Magnesium 2.1 mg/dl (1.8-2.4); Potassium 3.7 mmol/L (3.5-5.1)
[2020-11-01] MEDS: FLUTICASONE PROPIONATE NA SPR 16 GM BTL PRN (11:04)
[2020-11-01] MEDS: PANTOprazole 40 MG in SYRINGE 0 ML IV SCH ×2 (11:04→20:33)
[2020-11-01] MEDS: MoRPHine SULFATE 2 MG/ML CARP IV PRN ×2 (12:31→23:31)
[2020-11-01] MEDS ORDERED: POTASSIUM CHLORIDE CRTAB 20 MEQ TABCR PO STA (18:30)
[2020-11-01] MEDS: traZODone HCL 50 MG TAB PO SCH (20:31)
[2020-11-01] MEDS: ATORVASTATIN 20 MG TAB PO SCH (20:32)
[2020-11-01] MEDS: MONTELUKAST SODIUM 10 MG TABLET PO SCH (20:32)
[2020-11-01] MEDS: AMITRIPTYLINE HCL 25 MG TAB PO SCH (21:20)
[2020-11-02] MEDS: MEROPENEM 500 MG in SYRINGE 0 ML IV SCH ×4 (03:52→21:36)
[2020-11-02] MEDS: DOXYCYCLINE HYCLATE 100 MG in DEXTROSE 5% 100 ML IV SCH ×2 (05:57→19:35)
[2020-11-02] MEDS: MoRPHine SULFATE 2 MG/ML CARP IV PRN ×2 (06:00→19:57)
[2020-11-02] MEDS: FUROSEMIDE 20 MG in SYRINGE 0 ML IV SCH ×2 (07:44→21:07)
[2020-11-02] MEDS: PANTOprazole 40 MG in SYRINGE 0 ML IV SCH ×2 (07:45→21:08)
[2020-11-02] MEDS: methylPREDNISolone 40 MG in SYRINGE 0 ML IV SCH (07:45)
[2020-11-02] MEDS ORDERED: POTASSIUM CHLORIDE CRTAB 20 MEQ TABCR PO STA (08:00)
--- NOTE | 2020-11-02 08:01 | Hospitalist Progress Note ---
Date of Service November 01, 2020 Assessment & Plan (1) Acute on chronic respiratory failure with hypoxia and hypercapnia: Aspiration pneumonia patient is a 70-year-old female with past medical history of diastolic heart failure, COPD, anxiety, depression, CKD stage III, hypertension, chronic indwelling Hernandez catheter and GERD presented to the ED with shortness of breath and acute on chronic anemia. CXR on admission showed cardiomegaly and radiographic evidence of pulmonary vas cular congestion with bilateral pleural effusions. Right upper lobe airspace opacities, pneumonia versus asymmetric edema. CT chest showed multifocal airspace consolidation is seen throughout both lungs. The appearance is typical for pneumonia/aspiration pneumonitis. Small to moderate pleural effusions. Patient is chronically on 2 L of nasal cannula due to COPD On admission was on 3 to 4 L in the hospital however overnight her oxygen requirement increased significantly, to 10 L (10/15) ABG -pH 7.36, PCO2 70, PO2 60, bicarb 39 Repeat CXR on 10/21 showed mild interval improvement/redistribution of bilateral pleural effusion. Unchanged opacities within bilateral lungs which could represent pneumonia. Antibiotics started by grab driver/ertapenem, then switched to cefepime to cover for possible Pseudomonas , added flagyl for anaerobic coverage Also started on vancomycin, obtained MRSA nasal swab - negative Discussed linezolid, however due to patient's medication such as Celexa or nortriptyline, linezolid is contraindicated Guaifenesin, flutter valve and incentive spirometry started Pulmonary medicine consulted, recommend CT chest without contrast, which was ordered MRSA nasal swab negative, Vancomycin was discontinued Switch cefepime and flagyl to zosyn. Cont. to monitor closely resp. status and oxygen requirements which seem to fluctuate between 3 and 7L. Encourage flutter valve, IS. Repeat CXR showed no change in the diffuse interstitial thickening and right lung airspace opacities. Switched to PO Augmentin and continue neb treatment and oxygen supplement 10/28/20 Possible aspiration pneumonia CXR showed increasing airspace consolidation throughout the right lung, as well as increasing patchy airspace consolidation in the left lung. CT chest showed Multifocal airspace consolidation is again seen throughout both lungs. The appearance is typical for pneumonia/aspiration pneumonitis, and this has increased throughout the right upper lung as compared to 10/15/2020. Case discussed with pulmonary again - recommended IV lasix and IV steroid Abx changed from Augmentin to IV Zosyn Pulm recommended 7 days of abx course for the pneumonia Continue oxygen supplement Video swallow showed no aspiration identified. Continue PO prednisone palliative care on board for goal of care Re-consulted pulmonary medicine (10/30/20) - as pt's respiratory status not improving much and spiked fever CT chest ordered, procal, sputum cultx, ABG Pulmonary recommend ID consult re: fever (2) COPD (chronic obstructive pulmonary disease): - cont.medications as above/ per pulmonary (3) Acute on chronic diastolic CHF (congestive heart failure): (4) Elevated troponin: (5) Congestive heart failure: On admission - Chest x-ray with some pulmonary vascular congestion and some right upper lobe airspace opacities patient denied any cough, fever and absence of any leukocytosis. proBNP of 11,000 on admission. Cardiac enzymes were not concerning. Does use 2-3 L of nasal cannula at baseline, on 4 L of nasal cannula on 10/14 Initially Continued with IV Lasix 40 mg twice daily. Continue to monitor ins and outs along with daily weights. Echo obtained, no change compared to previous study in August 2020. Normal LV systolic function without regional wall motion abnormality, EF 60 to 65%. Cardiology consulted - as patient also complained of chest pain. Chest pain seems to be musculoskeletal in origin. Patient did not appear fluid overload and it was recommended that IV Lasix is stopped and patient is restarted on her home p.o. Lasix. We will continue to closely monitor After aspiration event CT chest obtained, which showed consolidation and also pl. effusions, cont. w/ IV lasix and albumin , as above 10/28/20 Chest pain pleuritic and reproducible in nature - cardiology recommends pain management consult Mostly costochondritis due to the recent fall Troponin mildly elevated mostly to hypoxic respiratory failure and elevated creatinine and chronic EKG showed no acute ischemic changes Heparin drip was starting by the nocturnal provider Case discussed with cardiology that recommended to discontinue the IV heparin drip No additional cardiac testing needed Continue Lasix Speech recommended slippery diet with thin liquid Continue pain management, palliative medicine also consulted (6) GERD (gastroesophageal reflux disease): (7) Anemia: GI bleed H. pylori Acute on chronic blood loss anemia - seen by GI at [facility] and also here -At [place] presented with with coffee-ground emesis on arrival -At [place] she underwent EGD (09/22/20), which showed gastritis and small gastric ulcer with no active bleeding. She was found to have H. pylori, and was treated. She finished treatment on October 07 -She is supposed to have a follow-up EGD in 8 weeks to assess ulcer healing (w/ [place] [facility]) -Per [facility] - continue PPI, trend H&H, transfuse as needed, follow up w/ [place] providers -Patient was transfused in [place], and she also obtained 2 units of PRBCs here on admission Hgb stable 9.2 (10/20) Monitor H&H, cont. to closely monitor, may require another blood transfusion given her cardiac hx Hgb stable at~ 9 Fever pt had a fever overnight switch Augmentin back to zosyn obtain blood cultx, CXR, UA/U cultx -pt has pna and recent orthopedic procedure however she has been doing well -she has chronic Hernandez - concern for UA -loose stools - obtain c. diff -Hernandez removed - per nursing staff tip of catheter w/ stool -continue with straight cath - obtain CT abdomen/pelvis to eval for possible bladder/bowel fistula -Augmentin changed to IV Zosyn -Continue IV Zosyn Repeat Fever (10/30/20) Pt spiked fever again today despite being on daptomycin (per ortho ID) and on zosyn for aspiration pneumonia -Blood cultures obtained, UA urine culture, sputum culture, procalcitonin, C. difficile, chest x-ray, CT chest -Orthopedic surgery re-evaluated the patient, they don't see any issues with the incision, looks clean, not infected UA - negative Blood cultx - pending ID consulted for further recs -recommend to discontinue daptomycin, and Zosyn, patient is now on meropenem and doxycycline (10/31) Elevated WBC Mostly related to steroid on IV Zosyn and Dapto 10/31 - now changed from Dapto and Zosyn to meropenem and doxycycline, as above (8) Right femoral fracture: -In [place] underwent right femur removal of hardware. Revision ORIF of right femur. Wound debridement and closure. Placement of antibiotic delivery device. On September 24, 2020, by . -Postop plan at that time was patient will be weightbearing as tolerated on her right lower extremity. She will begin DVT prophylaxis starting the night of postoperative day 0. Orthopedic infectious disease will provide recommendations for antibiotics postoperatively. Will obtain final x-rays of her right femur. Per hospitalist discharge summary, patient was discharged to [facility] -Intraoperative cultures grew 1+ E. faecium and few Staph aureus resistant to oxacillin. Ortho ID was following and recommended daptomycin 900 mg IV daily from September 25 to November 05, 2020. With follow-up CPK weekly, weightbearing of the right lower extremity as tolerated. PICC line was placed for 6 weeks of antibiotics. Following 6 weeks of IV antibiotics, plan will be to indefinitely suppressed with doxycycline monohydrate 100 mg p.o. twice daily due to the presence of extensive hardware in the limb. Lab results to be faxed to ID office at , outpatient follow-up with Ortho ID (Daptomycin dose was confirmed between Ortho ID in [place] and pharmacist at [facility]) -DVT prophylaxis achieved with Lovenox 40 twice daily for 3 weeks, end date October 14 -Per discharge summary, patient supposed to follow-up with orthopedics, Dr. Kaba, on October 14 - reschedule follow up -[place] [facility] - can be contacted at -On current admission, R leg - several incisions with sutures in place, one higher up on the thigh another one lateral to the knee -wound care was consulted as well as orthopedics given her extensive history and poorly healing wounds - per ortho no current issues (9) Morbid obesity: - needs counselling (10) Weakness: (11) Depression: (12) Anxiety: - cont home medications - ativan decreased as per nursing staff pt becomes very somnolent w/ meds - Palliative medicine consulted - started on duloxetine (13) History of pulmonary embolism: (14) CKD (chronic kidney disease) stage 3, GFR 30-59 ml/min: BLANCO on CKD 3 Possible related to contrast and Lasix CT abd/pelvis showed no hydronephrosis Creatinine 1.25 now improved 1.1 Lasix 40mg x1 IV given, now on 20 IV bid Has been diuresis well Continue monitor BMP (15) Hypertension: (16) Hyperlipidemia: - monitor BP, cont. home meds (17) Chronic indwelling Hernandez catheter: -Patient was having loose stools after requiring enema and disimpaction for constipation - fever (10/21), Hernandez removed and noted stool at the tip of catheter - Negative urine cx - CT abdomen/pelvis showed no bladder/bowel fistula - repeat fever on (10/30), will remove hernandez and will obtain urine cultx - pending, UA - negative Admission and Anticipated Discharge Date Admission Date: October 13, 2020 Subjective Pt was seen and examined for follow up of SOB Lying in bed with no acute distress , breathing comfortably however on 11-12L Otherwise feels comfortable, no new complaints Denies any chest pain, shortness of breath, dizziness, abdominal pain, nausea or vomiting Discussed trying to use CPAP, and flutter valve, incentive spirometry Patient reports using flutter valve however very reluctant about CPAP Review of Systems Review of Systems: All systems reviewed & are unremarkable except as noted in HPI & below Constitutional: + weakness; no fever and no chills Respiratory: + cough and + dyspnea (improved) Cardiovascular: no chest pain and no palpitations Gastrointestinal: no abdominal pain and no vomiting Physical Exam Physical Exam: General- elderly obese female, laying in bed, in No acute distress, on suppl. O2 Head- atraumatic Eyes- PERRL, EOMI, ENT- oropharynx clear Neck- supple, no JVD Lungs- + bibasilar crackles (exam improved), no wheezing Heart- regular rhythm; no murmur Abdomen- normal bowel sounds, soft, nontender Extremities- no calf tenderness, moves extremities Neuro- alert, oriented x 3; PERRL, EOMI; no facial palsy; no dysarthria Skin- warm & dry Results & Data Results & Data ([facility]) Vital Signs (Past 12 Hours) Vital Signs Temp Pulse Pulse Resp BP Pulse Ox 11/01/20 23:54 70 11/01/20 23:28 37.0 C 76 18 155/64 H 93 (1) Congestive heart failure Heart failure chronicity: acute Heart failure type: unspecified Qualified Code(s): I50.9 - Heart failure, unspecified (2) Anemia Anemia type: unspecified type Qualified Code(s): D64.9 - Anemia, unspecified (3) COPD (chronic obstructive pulmonary disease) COPD type: unspecified COPD Qualified Code(s): J44.9 - Chronic obstructive pulmonary disease, unspecified
--- NOTE | 2020-11-02 08:02 | Hospitalist Progress Note ---
Date of Service November 02, 2020 Assessment & Plan (1) Acute on chronic respiratory failure with hypoxia and hypercapnia: Aspiration pneumonia patient is a 70-year-old female with past medical history of diastolic heart failure, COPD, anxiety, depression, CKD stage III, hypertension, chronic indwelling Hernandez catheter and GERD presented to the ED with shortness of breath and acute on chronic anemia. CXR on admission showed cardiomegaly and radiographic evidence of pulmonary vas cular congestion with bilateral pleural effusions. Right upper lobe airspace opacities, pneumonia versus asymmetric edema. CT chest showed multifocal airspace consolidation is seen throughout both lungs. The appearance is typical for pneumonia/aspiration pneumonitis. Small to moderate pleural effusions. Patient is chronically on 2 L of nasal cannula due to COPD On admission was on 3 to 4 L in the hospital however overnight her oxygen requirement increased significantly, to 10 L (10/15) ABG -pH 7.36, PCO2 70, PO2 60, bicarb 39 Repeat CXR on 10/21 showed mild interval improvement/redistribution of bilateral pleural effusion. Unchanged opacities within bilateral lungs which could represent pneumonia. Antibiotics started by hardboard grinder/ertapenem, then switched to cefepime to cover for possible Pseudomonas , added flagyl for anaerobic coverage Also started on vancomycin, obtained MRSA nasal swab - negative Discussed linezolid, however due to patient's medication such as Celexa or nortriptyline, linezolid is contraindicated Guaifenesin, flutter valve and incentive spirometry started Pulmonary medicine consulted, recommend CT chest without contrast, which was ordered MRSA nasal swab negative, Vancomycin was discontinued Switch cefepime and flagyl to zosyn. Cont. to monitor closely resp. status and oxygen requirements which seem to fluctuate between 3 and 7L. Encourage flutter valve, IS. Repeat CXR showed no change in the diffuse interstitial thickening and right lung airspace opacities. Switched to PO Augmentin and continue neb treatment and oxygen supplement 10/28/20 Possible aspiration pneumonia CXR showed increasing airspace consolidation throughout the right lung, as well as increasing patchy airspace consolidation in the left lung. CT chest showed Multifocal airspace consolidation is again seen throughout both lungs. The appearance is typical for pneumonia/aspiration pneumonitis, and this has increased throughout the right upper lung as compared to 10/15/2020. Case discussed with pulmonary again - recommended IV lasix and IV steroid Abx changed from Augmentin to IV Zosyn Pulm recommended 7 days of abx course for the pneumonia Continue oxygen supplement Video swallow showed no aspiration identified. Continue PO prednisone palliative care on board for goal of care Re-consulted pulmonary medicine (10/30/20) - as pt's respiratory status not improving much and spiked fever CT chest ordered, procal, sputum cultx, ABG Pulmonary recommend ID consult re: fever (2) COPD (chronic obstructive pulmonary disease): - cont.medications as above/ per pulmonary (3) Acute on chronic diastolic CHF (congestive heart failure): (4) Elevated troponin: (5) Congestive heart failure: On admission - Chest x-ray with some pulmonary vascular congestion and some right upper lobe airspace opacities patient denied any cough, fever and absence of any leukocytosis. proBNP of 11,000 on admission. Cardiac enzymes were not concerning. Does use 2-3 L of nasal cannula at baseline, on 4 L of nasal cannula on 10/14 Initially Continued with IV Lasix 40 mg twice daily. Continue to monitor ins and outs along with daily weights. Echo obtained, no change compared to previous study in August 2020. Normal LV systolic function without regional wall motion abnormality, EF 60 to 65%. Cardiology consulted - as patient also complained of chest pain. Chest pain seems to be musculoskeletal in origin. Patient did not appear fluid overload and it was recommended that IV Lasix is stopped and patient is restarted on her home p.o. Lasix. We will continue to closely monitor After aspiration event CT chest obtained, which showed consolidation and also pl. effusions, cont. w/ IV lasix and albumin , as above 10/28/20 Chest pain pleuritic and reproducible in nature - cardiology recommends pain management consult Mostly costochondritis due to the recent fall Troponin mildly elevated mostly to hypoxic respiratory failure and elevated creatinine and chronic EKG showed no acute ischemic changes Heparin drip was starting by the nocturnal provider Case discussed with cardiology that recommended to discontinue the IV heparin drip No additional cardiac testing needed Continue Lasix Speech recommended slippery diet with thin liquid Continue pain management, palliative medicine also consulted (6) GERD (gastroesophageal reflux disease): (7) Anemia: GI bleed H. pylori Acute on chronic blood loss anemia - seen by GI at [facility] and also here -At [place] presented with with coffee-ground emesis on arrival -At [place] she underwent EGD (09/22/20), which showed gastritis and small gastric ulcer with no active bleeding. She was found to have H. pylori, and was treated. She finished treatment on October 07 -She is supposed to have a follow-up EGD in 8 weeks to assess ulcer healing (w/ [place] [facility]) -Per [facility] - continue PPI, trend H&H, transfuse as needed, follow up w/ [facility] providers -Patient was transfused in [place], and she also obtained 2 units of PRBCs here on admission Hgb stable 9.2 (10/20) Monitor H&H, cont. to closely monitor, may require another blood transfusion given her cardiac hx Hgb stable at~ 9 Fever pt had a fever overnight switch Augmentin back to zosyn obtain blood cultx, CXR, UA/U cultx -pt has pna and recent orthopedic procedure however she has been doing well -she has chronic Hernandez - concern for UA -loose stools - obtain c. diff -Hernandez removed - per nursing staff tip of catheter w/ stool -continue with straight cath - obtain CT abdomen/pelvis to eval for possible bladder/bowel fistula -Augmentin changed to IV Zosyn -Continued IV Zosyn Repeat Fever (10/30/20) Pt spiked fever again today despite being on daptomycin (per ortho ID) and on zosyn for aspiration pneumonia -Blood cultures obtained, UA urine culture, sputum culture, procalcitonin, C. difficile, chest x-ray, CT chest -Orthopedic surgery re-evaluated the patient, they don't see any issues with the incision, looks clean, not infected UA - negative Blood cultx - pending ID consulted for further recs -recommend to discontinue daptomycin, and Zosyn, patient is now on meropenem and doxycycline (10/31) Elevated WBC Mostly related to steroid on IV Zosyn and Dapto 10/31 - now changed from Dapto and Zosyn to meropenem and doxycycline, as above 11/02 WBC resolved 7-8K (8) Right femoral fracture: -In [place] underwent right femur removal of hardware. Revision ORIF of right femur. Wound debridement and closure. Placement of antibiotic delivery device. On September 24, 2020, by . -Postop plan at that time was patient will be weightbearing as tolerated on her right lower extremity. She will begin DVT prophylaxis starting the night of postoperative day 0. Orthopedic infectious disease will provide recommendations for antibiotics postoperatively. Will obtain final x-rays of her right femur. Per hospitalist discharge summary, patient was discharged to [facility] -Intraoperative cultures grew 1+ E. faecium and few Staph aureus resistant to oxacillin. Ortho ID was following and recommended daptomycin 900 mg IV daily from September 25 to November 05, 2020. With follow-up CPK weekly, weightbearing of the right lower extremity as tolerated. PICC line was placed for 6 weeks of antibiotics. Following 6 weeks of IV antibiotics, plan will be to indefinitely suppressed with doxycycline monohydrate 100 mg p.o. twice daily due to the presence of extensive hardware in the limb. Lab results to be faxed to ID office at , outpatient follow-up with Ortho ID (Daptomycin dose was confirmed between Ortho ID in [place] and pharmacist at [facility]) -DVT prophylaxis achieved with Lovenox 40 twice daily for 3 weeks, end date October 14 -Per discharge summary, patient supposed to follow-up with orthopedics, Dr. Kaba, on October 14 - reschedule follow up -[place] [facility] - can be contacted at -On current admission, R leg - several incisions with sutures in place, one higher up on the thigh another one lateral to the knee -wound care was consulted as well as orthopedics given her extensive history and poorly healing wounds - per ortho no current issues (9) Morbid obesity: - needs counselling (10) Weakness: (11) Depression: (12) Anxiety: - cont home medications - ativan decreased as per nursing staff pt becomes very somnolent w/ meds - Palliative medicine consulted - started on duloxetine (13) History of pulmonary embolism: (14) CKD (chronic kidney disease) stage 3, GFR 30-59 ml/min: BLANCO on CKD 3 Possible related to contrast and Lasix CT abd/pelvis showed no hydronephrosis Creatinine 1.25 now improved 1.1 Lasix 40mg x1 IV given, now on 20 IV bid Has been diuresis well Continue monitor BMP (15) Hypertension: (16) Hyperlipidemia: - monitor BP, cont. home meds (17) Chronic indwelling Hernandez catheter: -Patient was having loose stools after requiring enema and disimpaction for constipation - fever (10/21), Hernandez removed and noted stool at the tip of catheter - Negative urine cx - CT abdomen/pelvis showed no bladder/bowel fistula - repeat fever on (10/30), will remove hernandez and will obtain urine cultx - negative, UA - negative Admission and Anticipated Discharge Date Admission Date: October 13, 2020 Subjective Pt was seen and examined for follow up of SOB Lying in bed with no acute distress , breathing comfortably however on -L Otherwise feels comfortable, no new complaints Denies any chest pain, shortness of breath, dizziness, abdominal pain, nausea or vomiting Says she was gonna try CPAP yesterday, but then she "chickened out " Discussed trying to use CPAP, and flutter valve, incentive spirometry Patient reports using flutter valve however very reluctant about CPAP No BM yesterday, reports decent appetite Review of Systems Review of Systems: All systems reviewed & are unremarkable except as noted in HPI & below Constitutional: + weakness; no fever and no chills Respiratory: + cough and + dyspnea (improved) Gastrointestinal: no abdominal pain, no nausea and no vomiting Physical Exam Physical Exam: General- elderly obese female, laying in bed, in No acute distress, on suppl. O2 Head- atraumatic Eyes- PERRL, EOMI, ENT- oropharynx clear Neck- supple, no JVD Lungs- + bibasilar crackles (exam improved), no wheezing Heart- regular rhythm; no murmur Abdomen- normal bowel sounds, soft, nontender Extremities- no calf tenderness, moves extremities Neuro- alert, oriented x 3; PERRL, EOMI; no facial palsy; no dysarthria Skin- warm & dry Results & Data Results & Data ([facility]) Vital Signs (Past 12 Hours) Vital Signs Temp Pulse Pulse Resp BP Pulse Ox 11/02/20 03:37 36.8 C 70 18 164/68 H 95 11/01/20 23:54 70 11/01/20 23:28 37.0 C 76 18 155/64 H 93 Laboratory Results 11/01/20 11/01/20 Range/Units 08:27 08:27 WBC 11.80 H (4.8-10.8) K/uL RBC 3.33 L (4.2-5.4) M/uL Hgb 9.6 L (12.0-16.0) g/dL Hct 30.8 L (37-47) % MCV 92.5 (80-100) fL MCH 28.8 (25-34) pg MCHC 31.2 L (32-36) g/dL RDW Std Deviation 53.1 H (36.4-46.3) fL RDW Coeff of Leo 15.7 H (11.5-14.5) % Plt Count 229 (130-400) K/uL MPV 10.5 H (7.4-10.4) fL Immature Gran % (Auto) 0.3 % Neut % (Auto) 80.2 % Lymph % (Auto) 12.6 % Woodward % (Auto) 5.7 % Eos % (Auto) 1.1 % Baso % (Auto) 0.1 % Neut # (Auto) 9.46 H (1.4-6.5) K/uL Lymph # (Auto) 1.49 (1.2-3.4) K/uL Woodward # (Auto) 0.67 H (0.11-0.59) K/uL Eos # (Auto) 0.13 (0-0.5) K/uL Baso # (Auto) 0.01 (0-0.2) K/uL Immature Gran # (Auto) 0.04 H (0.00-0.02) K/uL Sodium 135 L (136-145) mmol/L Potassium 3.7 (3.5-5.1) mmol/L Chloride 91 L (98-107) mmol/L Carbon Dioxide 41 H* (21-32) mmol/L Anion Gap 3.0 (3-11) BUN 40 H (7-18) mg/dl Creatinine 0.97 (0.6-1.2) mg/dl Est Cr Clr Drug Dosing 61.5 ml/min Est GFR ( Amer) 67.6 ml/min Est GFR (Non-Af Amer) 58.3 ml/min BUN/Creatinine Ratio 41.4 H (10-20) Glucose 94 (70-99) mg/dl Calcium 10.4 H (8.5-10.1) mg/dl Magnesium 2.1 (1.8-2.4) mg/dl Medications Administered Current Inpatient Medications Acetaminophen (Acetaminophen 325 Mg Tab) 650 mg PO Q4H PRN PRN Reason: Pain or Fever Stop: 11/12/20 16:43 Last Admin: 11/01/20 03:16 Dose: 650 mg Documented by: Al Hydrox/Mg Hydrox/Simethicone (Aluminum/Magnesium Susp 30 Ml Udc) 15 ml PO Q6H PRN PRN Reason: dyspepsia Stop: 11/21/20 13:14 Last Admin: 10/23/20 09:57 Dose: 15 ml Documented by: Amitriptyline HCl (Amitriptyline Hcl 25 Mg Tab) 25 mg PO HS ROBERT Stop: 11/12/20 20:59 Last Admin: 11/01/20 21:20 Dose: 25 mg Documented by: Atorvastatin Calcium (Atorvastatin 20 Mg Tab) 20 mg PO HS ROBERT Stop: 11/12/20 20:59 Last Admin: 11/01/20 20:32 Dose: 20 mg Documented by: Benzonatate (Benzonatate 100 Mg Capsule) 100 mg PO TID PRN PRN Reason: Cough Stop: 11/24/20 22:46 Last Admin: 10/26/20 06:42 Dose: 100 mg Documented by: Benzonatate (Benzonatate 100 Mg Capsule) 100 mg PO TID ROBERT Stop: 11/25/20 11:24 Last Admin: 11/01/20 20:34 Dose: Not Given Documented by: Duloxetine HCl (Duloxetine Hcl 20 Mg Cap) 20 mg PO QAM ROBERT Stop: 11/27/20 08:59 Last Admin: 11/01/20 08:43 Dose: 20 mg Documented by: Ferrous Sulfate (Ferrous Sulfate 325 Mg Tab) 325 mg PO DAILY ROBERT Stop: 11/13/20 08:59 Last Admin: 11/01/20 08:43 Dose: 325 mg Documented by: Fluticasone Propionate (Fluticasone Propionate Na Spr 16 Gm Btl) 2 sprays NA PRN PRN PRN Reason: Congestion Stop: 11/29/20 12:29 Last Admin: 11/01/20 11:04 Dose: 2 sprays Documented by: Fluticasone/Vilanterol (Fluticasone/Vilanterol 100/25mcg 14 Puffs/Inhaler) 1 puffs INH DAILY ROBERT Stop: 11/13/20 08:59 Last Admin: 11/01/20 08:44 Dose: 1 puffs Documented by: Furosemide (Furosemide 20 Mg Tab) 20 mg PO BID17 [facility] Stop: 11/28/20 08:59 Last Admin: 10/30/20 08:54 Dose: Not Given Documented by: Guaifenesin (Guaifenesin 600 Mg Tabcr) 1,200 mg PO Q12 ROBERT Stop: 11/28/20 08:59 Last Admin: 11/01/20 20:32 Dose: 1,200 mg Documented by: Heparin Sodium (Beef Lung) (Heparin 10 Unit/Ml 5 Ml Flush) 5 ml FLUSH PRN PRN PRN Reason: Flush Stop: 11/13/20 08:12 Last Admin: 11/02/20 07:45 Dose: 5 ml Documented by: Pantoprazole Sodium 40 mg/ (Syringe) 10 mls @ 5 mls/min IV BID [facility] Stop: 11/13/20 20:59 Last Admin: 11/02/20 07:45 Dose: 5 mls/min Documented by: Furosemide 20 mg/ Syringe 2 mls @ 4 mls/min IV BID ROBERT Stop: 11/29/20 08:59 Last Admin: 11/02/20 07:44 Dose: 4 mls/min Documented by: Doxycycline Hyclate 100 mg/ (Dextrose) 110 mls @ 50 mls/hr IV Q12H [facility] Stop: 11/07/20 06:59 Last Admin: 11/02/20 05:57 Dose: 50 mls/hr Documented by: Methylprednisolone 40 mg/ (Syringe) 0.64 mls @ 1.5 mls/min IV QAM [facility] Stop: 12/01/20 08:59 Last Admin: 11/02/20 07:45 Dose: 1.5 mls/min Documented by: Meropenem 500 mg/ Syringe 10 mls @ 2 mls/min IV Q6H [facility]; Protocol Stop: 11/07/20 14:59 Last Admin: 11/02/20 07:48 Dose: 2 mls/min Documented by: Ipratropium Blanket (Ipratropium Blanket Neb Soln 0.02% 2.5 Ml Vial) 0.5 mg INH BIDR [facility] Stop: 11/25/20 18:59 Last Admin: 11/01/20 19:42 Dose: Not Given Documented by: Lactobacillus Acidoph/Casei/Rhamnos (Advanced Probiotic 1250 Mg Capsule) 2 cap PO DAILY [facility] Stop: 11/19/20 10:29 Last Admin: 11/01/20 08:44 Dose: 2 cap Documented by: Levalbuterol HCl (Levalbuterol 1.25mg/0.5ml Neb) 1.25 mg INH BIDR [facility] Stop: 11/25/20 18:59 Last Admin: 11/01/20 19:42 Dose: Not Given Documented by: Lidocaine (Lidocaine 5% 1 Patch) 1 patch TD DAILY ROBERT Stop: 11/13/20 08:59 Last Admin: 11/01/20 08:45 Dose: 1 patch Documented by: Lisinopril (Lisinopril 5 Mg Tab) 5 mg PO DAILY [facility] Stop: 11/13/20 08:59 Last Admin: 10/14/20 07:48 Dose: 5 mg Documented by: Lorazepam (Lorazepam 0.5 Mg Tab) 0.5 mg PO QID PRN PRN Reason: Anxiety Stop: 11/14/20 08:21 Last Admin: 11/01/20 17:33 Dose: 0.5 mg Documented by: Metoprolol Succinate (Metoprolol Succ 25mg Ext Rel Tab) 25 mg PO QAM [facility] Stop: 11/24/20 01:34 Last Admin: 11/01/20 08:45 Dose: 25 mg Documented by: Miconazole Nitrate (Miconazole Nitrate Powder 43 Gm) 1 appln EXT BID [facility] Stop: 11/24/20 22:59 Last Admin: 11/01/20 20:35 Dose: 1 appln Documented by: Miscellaneous (Remove Lidoderm Patch) 1 ea N/A DAILY@2100 [facility] Stop: 11/12/20 20:59 Last Admin: 11/01/20 20:32 Dose: 1 ea Documented by: Miscellaneous Information (Meropenem Consult Acitve) 1 ea N/A UD PRN PRN Reason: Consult Stop: 11/30/20 13:56 Montelukast Sodium (Montelukast Sodium 10 Mg Tablet) 10 mg PO HS [facility] Stop: 11/12/20 20:59 Last Admin: 11/01/20 20:32 Dose: 10 mg Documented by: Morphine Sulfate (Morphine Sulfate 2 Mg/Ml Carp) 1 mg IV Q6H PRN PRN Reason: Pain uncontrolled by PO meds Stop: 11/09/20 11:24 Last Admin: 11/02/20 06:00 Dose: 1 mg Documented by: Multivitamins (Multivitamin Tab) 1 tab PO QAM ROBERT Stop: 11/13/20 08:59 Last Admin: 11/01/20 08:46 Dose: 1 tab Documented by: Nitroglycerin (Nitroglycerin Sl 0.4 Mg/Tab Tab) 0.4 mg SL PRN PRN PRN Reason: cp Stop: 11/23/20 23:50 Last Admin: 10/25/20 01:08 Dose: 0.4 mg Documented by: Ondansetron HCl (Ondansetron 2 Mg Od Tab) 2 mg PO Q4H PRN PRN Reason: Nausea And Vomiting Stop: 11/16/20 12:59 Last Admin: 10/29/20 07:34 Dose: 2 mg Documented by: Oxycodone HCl (Oxycodone Hcl Ir 5 Mg Tab (Immediate Release)) 5 mg PO Q6H PRN PRN Reason: pain Stop: 11/08/20 17:44 Last Admin: 11/01/20 20:31 Dose: 5 mg Documented by: Polyethylene Glycol (Polyethylene (Miralax) 17 Gm Pack) 17 gm PO BID PRN PRN Reason: constipation Stop: 11/16/20 20:59 Potassium Chloride (Potassium Chloride Crtab 20 Meq Tabcr) 20 meq PO NOW STA Stop: 11/02/20 08:01 Pregabalin (Pregabalin 100 Mg Cap) 100 mg PO BID ROBERT Stop: 11/26/20 20:59 Last Admin: 11/01/20 20:31 Dose: 100 mg Documented by: Sodium Chloride (Sodium Chlor 7% 4 Ml Neb) 4 ml NEB BIDR ROBERT Stop: 11/23/20 18:59 Last Admin: 11/01/20 19:43 Dose: Not Given Documented by: Trazodone HCl (Trazodone Hcl 50 Mg Tab) 50 mg PO HS ROBERT Stop: 11/12/20 20:59 Last Admin: 11/01/20 20:31 Dose: 50 mg Documented by: Umeclidinium Blanket (Umeclidinium Blanket 62.5mcg/Blister 7 Puffs/Inhaler) 1 puffs INH DAILY ROBERT Stop: 11/13/20 08:59 Last Admin: 11/01/20 08:47 Dose: 1 puffs Documented by: Vitamin D (Cholecalciferol 1,000 Units 25 Mcg Tab) 5,000 units PO DAILY ROBERT Stop: 11/13/20 08:59 Last Admin: 11/01/20 08:43 Dose: 5,000 units Documented by: (1) Congestive heart failure Heart failure chronicity: acute Heart failure type: unspecified Qualified Code(s): I50.9 - Heart failure, unspecified (2) Anemia Anemia type: unspecified type Qualified Code(s): D64.9 - Anemia, unspecified (3) COPD (chronic obstructive pulmonary disease) COPD type: unspecified COPD Qualified Code(s): J44.9 - Chronic obstructive pulmonary disease, unspecified
[2020-11-02] MEDS: CHOLECALCIFEROL 1,000 UNITS 25 MCG TAB PO SCH (08:06)
[2020-11-02] MEDS: FERROUS SULFATE 325 MG TAB PO SCH (08:07)
[2020-11-02] MEDS: FLUTICASONE/VILANTEROL 100/25MCG 14 PUFFS/INHALER INH SCH (08:07)
[2020-11-02] MEDS: LIDOCAINE 5% 1 PATCH TD SCH (08:07)
[2020-11-02] MEDS: ADVANCED PROBIOTIC 1250 MG CAPSULE PO SCH (08:07)
[2020-11-02] MEDS: DULoxetine HCL 20 MG CAP PO SCH (08:07)
[2020-11-02] MEDS: guaiFENesin 600 MG TABCR PO SCH ×2 (08:07→21:03)
[2020-11-02] MEDS: METOPROLOL SUCC 25MG EXT REL TAB PO SCH (08:08)
[2020-11-02] MEDS: MICONAZOLE NITRATE POWDER 43 GM EXT SCH ×2 (08:08→21:08)
[2020-11-02] MEDS: UMECLIDINIUM BROMIDE 62.5MCG/BLISTER 7 PUFFS/INHALER INH SCH (08:09)
[2020-11-02] MEDS: MULTIVITAMIN TAB PO SCH (08:09)
[2020-11-02 08:10] LABS: Basophils # (auto) 0.01 K/uL (0-0.2); Basophils % (auto) 0.1 %; Eosinophils # (auto) 0.01 K/uL (0-0.5); Eosinophils % (auto) 0.1 %; Hematocrit (blood only) 30.2 % (37-47); Hemoglobin 9.4 g/dL (12.0-16.0); Immature Granulocytes # (auto) 0.03 K/uL (0.00-0.02); Immature Granulocytes % (auto) 0.4 %; Lymphocytes # (auto) 1.28 K/uL (1.2-3.4); Lymphocytes % (auto) 17.7 %; Mean Corpuscular Hemoglobin 28.7 pg (25-34); Mean Corpuscular Hgb Conc 31.1 g/dL (32-36); Mean Corpuscular Volume 92.1 fL (80-100); Monocytes # (auto) 0.54 K/uL (0.11-0.59); Monocytes % (auto) 7.5 %; Neutrophils # (auto) 5.35 K/uL (1.4-6.5); Neutrophils % (auto) 74.2 %; Platelet Count 236 K/uL (130-400); RDW Coefficient of Variation 15.5 % (11.5-14.5); RDW Standard Deviation 52.7 fL (36.4-46.3); Red Blood Count 3.28 M/uL (4.2-5.4); White Blood Count 7.22 K/uL (4.8-10.8)
[2020-11-02] MEDS: PREGABALIN 100 MG CAP PO SCH ×2 (08:13→21:36)
[2020-11-02] MEDS: LORazepam 0.5 MG TAB PO PRN ×3 (08:13→21:36)
[2020-11-02 08:42] LABS: BUN Creatinine Ratio 39.9 (10-20); Creatinine Clr Calc Pharmacy 57.3 ml/min; Est GFR (African American) 64.4 ml/min; Est GFR (Non-African American) 55.6 ml/min; Magnesium 2.2 mg/dl (1.8-2.4); Phosphorus 3.1 mg/dl (2.5-4.9); Potassium 4.4 mmol/L (3.5-5.1)
[2020-11-02] MEDS: oxyCODONE HCL IR 5 MG TAB (IMMEDIATE RELEASE) PO PRN ×2 (09:18→17:34)
[2020-11-02] MEDS: BENZONATATE 100 MG CAPSULE PO SCH ×3 (09:21→21:04)
[2020-11-02] MEDS: lisinopril 5 MG TAB PO SCH (10:18)
[2020-11-02] MEDS: IPRATROPIUM BROMIDE NEB SOLN 0.02% 2.5 ML VIAL INH SCH ×2 (10:49→19:21)
[2020-11-02] MEDS: SODIUM CHLOR 7% 4 ML NEB NEB SCH ×2 (10:49→20:13)
[2020-11-02] MEDS: LEVALBUTEROL 1.25MG/0.5ML NEB INH SCH ×2 (10:49→19:20)
--- NOTE | 2020-11-02 11:31 | Pulmonology Progress Note ---
Date of Service November 02, 2020 Assessment & Plan (1) Acute on chronic respiratory failure with hypoxia and hypercapnia: (2) Abnormal CT scan of lung: (3) Acute on chronic diastolic CHF (congestive heart failure): Impression: 70-year-old female with a host of medical issues including morbid obesity, hypoxemic and hypercarbic respiratory failure, chronic kidney disease, grade 2 diastolic dysfunction, reported COPD, and bedbound status with recent extensive orthopedic surgery for infection performed at [place]. Recommendations: 1. Hypoxemic respiratory failure: Procalcitonin was negative however BNP is markedly elevated. Recommend continued diuresis. -2 L yesterday. Her serum bi carb is elevated however last blood gas showed an acidemic pH so I would be reluctant to use Diamox. Patient really needs to get out of bed and be compliant with incentive spirometry and pulmonary toilet. Unclear if this is feasible. She was initiated on Solu-Medrol yesterday for reasons that are not entirely clear. I see no indication for steroids for a lung process at this point time. Her chest x-ray is abnormal and will require weeks to resolve as noted below. As this medication was started by the hospitalist, I will defer to them about continuing the medication. 2. Hypercarbic respiratory failure: Advised the patient that she really needs to be compliant with CPAP or BiPAP. She states that she has tried it and refuses to use the mask is too uncomfortable. She understands that this may be the only solution to improving her CO2 retention. She again declines therapy. I asked her if she would reconsider if it meant the difference between living and dying and she again states that she does not want to be compliant with CPAP or BiPAP. Her elevated CO2 levels are significantly contributing to her hypoxemia and correction of CO2 would significantly improve her oxygenation. Without improving her CO2, she will remain significantly hypoxemic. 3. Fevers: Per primary service and infectious disease 4. Reported COPD: The patient does not appear bronchospastic currently. No indication for additional steroids or inhalers currently. 5. Abnormal chest x-ray: The patient has dense consolidation of the upper lobe. This may take weeks to resolve if it resolves. It may be fibrotic at this point in time. Would continue to manage potentially modifiable issues as noted above. Unfortunately, I think I have little else to offer this patient at this point time. Please call if we can be of additional assistance. We will sign off at this point time Admission and Anticipated Discharge Date Admission Date: October 13, 2020 Subjective Patient seen and examined. EMR reviewed. She did experience some chest tightness and cough which was productive of some clear phlegm. She is not had hemoptysis. She feels her breathing is about the same. She remains on 12 L of oxygen. She has declined opportunities to get up out of bed to the chair. Review of Systems Review of Systems: Per hospitalist note Physical Exam Constitutional: + obese; no acute distress and not ill appearing Neck: trachea midline, no thyromegaly Respiratory: normal respiratory effort; no respiratory distress and no labored breathing Coarse breath sounds bilaterally. No wheezing Cardiovascular: RRR, no murmur, no edema Gastrointestinal (Abdomen): normal bowel sounds, soft, nontender, no hepatosplenomegaly Musculoskeletal: Extremities: extremities normal to inspection Skin: no rashes, warm and dry Neurologic: Nonfocal exam Lymphatic: no cervical lymphadenopathy Results & Data Results & Data ([facility]) Vital Signs (Past 12 Hours) Vital Signs Temp Pulse Pulse Resp BP Pulse Ox 11/02/20 11:21 36.9 C 69 18 138/64 71 L 11/02/20 03:37 36.8 C 70 18 164/68 H 95 11/01/20 23:54 70 11/01/20 23:28 37.0 C 76 18 155/64 H 93 Laboratory Results 11/02/20 07:41 11/02/20 07:41 Diagnostic Findings No new imaging PG Care Time/CCT Total # of Minutes Spent Total Time Spent with Patient: Total time spent is greater than 50% in coordination of care (as documented) at patient's floor/unit and/or counseling patient: Coding Level of Care Code 43269 Subseq Hosp Care Lvl 2 Diagnoses Acute on chronic respiratory failure with hypoxia and hypercapnia J96.21; J96.[address] scan of lung R91.8 Acute on chronic diastolic CHF (congestive heart failure) I50.33
[2020-11-02] MEDS: AMITRIPTYLINE HCL 25 MG TAB PO SCH (21:02)
[2020-11-02] MEDS: MONTELUKAST SODIUM 10 MG TABLET PO SCH (21:05)
[2020-11-02] MEDS: ATORVASTATIN 20 MG TAB PO SCH (21:07)
[2020-11-02] MEDS: traZODone HCL 50 MG TAB PO SCH (21:36)
[2020-11-03] MEDS: MoRPHine SULFATE 2 MG/ML CARP IV PRN ×3 (02:15→21:29)
[2020-11-03] MEDS: MEROPENEM 500 MG in SYRINGE 0 ML IV SCH ×4 (04:06→21:28)
[2020-11-03 05:48] LABS: Hematocrit (blood only) 31.3 % (37-47); Hemoglobin 9.9 g/dL (12.0-16.0); Immature Granulocytes # (auto) 0.04 K/uL (0.00-0.02); Immature Granulocytes % (auto) 0.5 %; Lymphocytes # (auto) 1.58 K/uL (1.2-3.4); Mean Corpuscular Hemoglobin 28.9 pg (25-34); Mean Corpuscular Hgb Conc 31.6 g/dL (32-36); Mean Corpuscular Volume 91.5 fL (80-100); Mean Platelet Volume 10.4 fL (7.4-10.4); Monocytes # (auto) 0.63 K/uL (0.11-0.59); Monocytes % (auto) 7.2 %; Neutrophils # (auto) 6.51 K/uL (1.4-6.5); Neutrophils % (auto) 74.3 %; Platelet Count 253 K/uL (130-400); RDW Coefficient of Variation 15.6 % (11.5-14.5); RDW Standard Deviation 52.2 fL (36.4-46.3); Red Blood Count 3.42 M/uL (4.2-5.4); White Blood Count 8.76 K/uL (4.8-10.8)
[2020-11-03 06:22] LABS: BUN Creatinine Ratio 46.7 (10-20); Calcium 9.5 mg/dl (8.5-10.1); Est GFR (African American) 69.4 ml/min; Est GFR (Non-African American) 59.8 ml/min; Magnesium 2.1 mg/dl (1.8-2.4); Potassium 4.8 mmol/L (3.5-5.1)
[2020-11-03] MEDS: DOXYCYCLINE HYCLATE 100 MG in DEXTROSE 5% 100 ML IV SCH ×2 (06:26→17:58)
[2020-11-03 06:29] LABS: Phosphorus 3.8 mg/dl (2.5-4.9)
[2020-11-03] MEDS: LORazepam 0.5 MG TAB PO PRN (07:15)
[2020-11-03] MEDS: SODIUM CHLOR 7% 4 ML NEB NEB SCH ×2 (07:37→19:41)
[2020-11-03] MEDS: LEVALBUTEROL 1.25MG/0.5ML NEB INH SCH ×2 (07:37→19:41)
[2020-11-03] MEDS: IPRATROPIUM BROMIDE NEB SOLN 0.02% 2.5 ML VIAL INH SCH ×2 (07:37→19:41)
--- NOTE | 2020-11-03 08:16 | Hospitalist Progress Note ---
Date of Service November 03, 2020 Assessment & Plan (1) Acute on chronic respiratory failure with hypoxia and hypercapnia: Aspiration pneumonia patient is a 70-year-old female with past medical history of diastolic heart failure, COPD, anxiety, depression, CKD stage III, hypertension, chronic indwelling Hernandez catheter and GERD presented to the ED with shortness of breath and acute on chronic anemia. CXR on admission showed cardiomegaly and radiographic evidence of pulmonary vas cular congestion with bilateral pleural effusions. Right upper lobe airspace opacities, pneumonia versus asymmetric edema. CT chest showed multifocal airspace consolidation is seen throughout both lungs. The appearance is typical for pneumonia/aspiration pneumonitis. Small to moderate pleural effusions. Patient is chronically on 2 L of nasal cannula due to COPD On admission was on 3 to 4 L in the hospital however overnight her oxygen requirement increased significantly, to 10 L (10/15) ABG -pH 7.36, PCO2 70, PO2 60, bicarb 39 Repeat CXR on 10/21 showed mild interval improvement/redistribution of bilateral pleural effusion. Unchanged opacities within bilateral lungs which could represent pneumonia. Antibiotics started by application packaging consultant/ertapenem, then switched to cefepime to cover for possible Pseudomonas , added flagyl for anaerobic coverage Also started on vancomycin, obtained MRSA nasal swab - negative Discussed linezolid, however due to patient's medication such as Celexa or nortriptyline, linezolid is contraindicated Guaifenesin, flutter valve and incentive spirometry started Pulmonary medicine consulted, recommend CT chest without contrast, which was ordered MRSA nasal swab negative, Vancomycin was discontinued Switch cefepime and flagyl to zosyn. Cont. to monitor closely resp. status and oxygen requirements which seem to fluctuate between 3 and 7L. Encourage flutter valve, IS. Repeat CXR showed no change in the diffuse interstitial thickening and right lung airspace opacities. Switched to PO Augmentin and continue neb treatment and oxygen supplement 10/28/20 Possible aspiration pneumonia CXR showed increasing airspace consolidation throughout the right lung, as well as increasing patchy airspace consolidation in the left lung. CT chest showed Multifocal airspace consolidation is again seen throughout both lungs. The appearance is typical for pneumonia/aspiration pneumonitis, and this has increased throughout the right upper lung as compared to 10/15/2020. Case discussed with pulmonary again - recommended IV lasix and IV steroid Abx changed from Augmentin to IV Zosyn Pulm recommended 7 days of abx course for the pneumonia Continue oxygen supplement Video swallow showed no aspiration identified. Continue PO prednisone palliative care on board for goal of care Re-consulted pulmonary medicine (10/30/20) - as pt's respiratory status not improving much and spiked fever CT chest ordered, procal, sputum cultx, ABG Pulmonary recommend ID consult re: fever After discussion with ID, patient switched to meropenem and doxycycline. Also given possibility of reaction to Dapto, continue steroid was recommended. (11/03) Her breathing status has improved, currently on 10 L down from 12 of O2 via NC (2) COPD (chronic obstructive pulmonary disease): - cont.medications as above/ per pulmonary (3) Acute on chronic diastolic CHF (congestive heart failure): (4) Elevated troponin: (5) Congestive heart failure: On admission - Chest x-ray with some pulmonary vascular congestion and some right upper lobe airspace opacities patient denied any cough, fever and absence of any leukocytosis. proBNP of 11,000 on admission. Cardiac enzymes were not concerning. Does use 2-3 L of nasal cannula at baseline, on 4 L of nasal cannula on 10/14 Initially Continued with IV Lasix 40 mg twice daily. Continue to monitor ins and outs along with daily weights. Echo obtained, no change compared to previous study in August 2020. Normal LV systolic function without regional wall motion abnormality, EF 60 to 65%. Cardiology consulted - as patient also complained of chest pain. Chest pain seems to be musculoskeletal in origin. Patient did not appear fluid overload and it was recommended that IV Lasix is stopped and patient is restarted on her home p.o. Lasix. We will continue to closely monitor After aspiration event CT chest obtained, which showed consolidation and also pl. effusions, cont. w/ IV lasix and albumin , as above 10/28/20 Chest pain pleuritic and reproducible in nature - cardiology recommends pain management consult Mostly costochondritis due to the recent fall Troponin mildly elevated mostly to hypoxic respiratory failure and elevated creatinine and chronic EKG showed no acute ischemic changes Heparin drip was starting by the nocturnal provider Case discussed with cardiology that recommended to discontinue the IV heparin drip No additional cardiac testing needed Continue Lasix Speech recommended slippery diet with thin liquid Continue pain management, palliative medicine also consulted (6) GERD (gastroesophageal reflux disease): (7) Anemia: GI bleed H. pylori Acute on chronic blood loss anemia - seen by GI at [facility] and also here -At [place] presented with with coffee-ground emesis on arrival -At [place] she underwent EGD (09/22/20), which showed gastritis and small gastric ulcer with no active bleeding. She was found to have H. pylori, and was treated. She finished treatment on October 07 -She is supposed to have a follow-up EGD in 8 weeks to assess ulcer healing (w/ [place] [facility]) -Per [facility] - continue PPI, trend H&H, transfuse as needed, follow up w/ [place] providers -Patient was transfused in [place], and she also obtained 2 units of PRBCs here on admission Hgb stable 9.2 (10/20) Monitor H&H, cont. to closely monitor, may require another blood transfusion given her cardiac hx Hgb stable at~ 9 Fever pt had a fever overnight switch Augmentin back to zosyn obtain blood cultx, CXR, UA/U cultx -pt has pna and recent orthopedic procedure however she has been doing well -she has chronic Hernandez - concern for UA -loose stools - obtain c. diff -Hernandez removed - per nursing staff tip of catheter w/ stool -continue with straight cath - obtain CT abdomen/pelvis to eval for possible bladder/bowel fistula -Augmentin changed to IV Zosyn -Continued IV Zosyn Repeat Fever (10/30/20) Pt spiked fever again today despite being on daptomycin (per ortho ID) and on zosyn for aspiration pneumonia -Blood cultures obtained, UA urine culture, sputum culture, procalcitonin, C. difficile, chest x-ray, CT chest -Orthopedic surgery re-evaluated the patient, they don't see any issues with the incision, looks clean, not infected UA - negative Blood cultx - pending ID consulted for further recs -recommend to discontinue daptomycin, and Zosyn, patient is now on meropenem and doxycycline (10/31) In addition concern for reaction to Dapto, and therefore it was not recommended to stop steroids. Elevated WBC Mostly related to steroid on IV Zosyn and Dapto 10/31 - now changed from Dapto and Zosyn to meropenem and doxycycline, as above 11/02 WBC resolved 7-8K (8) Right femoral fracture: -In [place] underwent right femur removal of hardware. Revision ORIF of right femur. Wound debridement and closure. Placement of antibiotic delivery device. On September 24, 2020, by . -Postop plan at that time was patient will be weightbearing as tolerated on her right lower extremity. She will begin DVT prophylaxis starting the night of postoperative day 0. Orthopedic infectious disease will provide recommendations for antibiotics postoperatively. Will obtain final x-rays of her right femur. Per hospitalist discharge summary, patient was discharged to [facility] -Intraoperative cultures grew 1+ E. faecium and few Staph aureus resistant to oxacillin. Ortho ID was following and recommended daptomycin 900 mg IV daily from September 25 to November 05, 2020. With follow-up CPK weekly, weightbearing of the right lower extremity as tolerated. PICC line was placed for 6 weeks of antibiotics. Following 6 weeks of IV antibiotics, plan will be to indefinitely suppressed with doxycycline monohydrate 100 mg p.o. twice daily due to the presence of extensive hardware in the limb. Lab results to be faxed to ID office at , outpatient follow-up with Ortho ID (Daptomycin dose was confirmed between Ortho ID in [place] and pharmacist at [facility]) -DVT prophylaxis achieved with Lovenox 40 twice daily for 3 weeks, end date October 14 -Per discharge summary, patient supposed to follow-up with orthopedics, Dr. Kaba, on October 14 - reschedule follow up -[place] [facility] - can be contacted at -On current admission, R leg - several incisions with sutures in place, one higher up on the thigh another one lateral to the knee -wound care was consulted as well as orthopedics given her extensive history and poorly healing wounds - per ortho no current issues (9) Morbid obesity: - needs counselling (10) Weakness: (11) Depression: (12) Anxiety: - cont home medications - ativan decreased as per nursing staff pt becomes very somnolent w/ meds - Palliative medicine consulted - started on duloxetine (13) History of pulmonary embolism: (14) CKD (chronic kidney disease) stage 3, GFR 30-59 ml/min: BLANCO on CKD 3 Possible related to contrast and Lasix CT abd/pelvis showed no hydronephrosis Creatinine 1.25 now improved 1.1 Lasix 40mg x1 IV given, now on 20 IV bid Has been diuresis well Continue monitor BMP (15) Hypertension: (16) Hyperlipidemia: - monitor BP, cont. home meds (17) Chronic indwelling Hernandez catheter: -Patient was having loose stools after requiring enema and disimpaction for constipation - fever (10/21), Hernandez removed and noted stool at the tip of catheter - Negative urine cx - CT abdomen/pelvis showed no bladder/bowel fistula - repeat fever on (10/30), removed hernandez, obtained urine cultx - negative, UA - negative Admission and Anticipated Discharge Date Admission Date: October 13, 2020 Subjective Pt was seen and examined for follow up of SOB Lying in bed with no acute distress , breathing comfortably on 10L Has no new complaints at this time Denies any chest pain, shortness of breath, dizziness, abdominal pain, nausea or vomiting Discussed trying to use CPAP, and flutter valve, incentive spirometry Patient reports using flutter valve however very reluctant about CPAP Review of Systems Review of Systems: All systems reviewed & are unremarkable except as noted in HPI & below Constitutional: + weakness; no fever and no chills Respiratory: + cough and + dyspnea (improved) Cardiovascular: no palpitations Gastrointestinal: no abdominal pain, no nausea and no vomiting Physical Exam Physical Exam: General- elderly obese female, laying in bed, in No acute distress, on suppl. 10 L O2 (down from 12) Head- atraumatic Eyes- PERRL, EOMI, ENT- oropharynx clear Neck- supple, no JVD Lungs- + bibasilar crackles (exam improved), no wheezing Heart- regular rhythm; no murmur Abdomen- normal bowel sounds, soft, nontender Extremities- no calf tenderness, moves extremities Neuro- alert, oriented x 3; PERRL, EOMI; no facial palsy; no dysarthria Skin- warm & dry Results & Data Results & Data ([facility]) Vital Signs (Past 12 Hours) Vital Signs Temp Pulse Pulse Resp BP Pulse Ox 11/03/20 07:34 37 C 81 20 125/65 94 11/03/20 07:23 68 11/03/20 03:13 36.8 C 72 18 137/70 95 11/02/20 22:56 36.9 C 70 18 159/55 H 94 Laboratory Results 11/03/20 11/03/20 11/02/20 Range/Units 05:34 05:34 15:05 WBC 8.76 (4.8-10.8) K/uL RBC 3.42 L (4.2-5.4) M/uL Hgb 9.9 L (12.0-16.0) g/dL Hct 31.3 L (37-47) % MCV 91.5 (80-100) fL MCH 28.9 (25-34) pg MCHC 31.6 L (32-36) g/dL RDW Std Deviation 52.2 H (36.4-46.3) fL RDW Coeff of Leo 15.6 H (11.5-14.5) % Plt Count 253 (130-400) K/uL MPV 10.4 (7.4-10.4) fL Immature Gran % (Auto) 0.5 % Neut % (Auto) 74.3 % Lymph % (Auto) 18.0 % [place]rick % (Auto) 7.2 % Eos % (Auto) 0.0 % Baso % (Auto) 0.0 % Neut # (Auto) 6.51 H (1.4-6.5) K/uL Lymph # (Auto) 1.58 (1.2-3.4) K/uL Warrick # (Auto) 0.63 H (0.11-0.59) K/uL Eos # (Auto) 0.00 (0-0.5) K/uL Baso # (Auto) 0.00 (0-0.2) K/uL Immature Gran # (Auto) 0.04 H (0.00-0.02) K/uL Sodium 133 L (136-145) mmol/L Potassium 4.8 (3.5-5.1) mmol/L Chloride 94 L (98-107) mmol/L Carbon Dioxide 36 H (21-32) mmol/L Anion Gap 3.0 (3-11) BUN 44 H (7-18) mg/dl Creatinine 0.95 (0.6-1.2) mg/dl Est Cr Clr Drug Dosing 61.0 ml/min Est GFR ( Amer) 69.4 ml/min Est GFR (Non-Af Amer) 59.8 ml/min BUN/Creatinine Ratio 46.7 H (10-20) Glucose 94 (70-99) mg/dl Calcium 9.5 (8.5-10.1) mg/dl Phosphorus 3.8 (2.5-4.9) mg/dl Magnesium 2.1 (1.8-2.4) mg/dl Nasal Screen MRSA (PCR) Negative (Negative) 11/02/20 Range/Units 07:41 WBC (4.8-10.8) K/uL RBC (4.2-5.4) M/uL Hgb (12.0-16.0) g/dL Hct (37-47) % MCV (80-100) fL MCH (25-34) pg MCHC (32-36) g/dL RDW Std Deviation (36.4-46.3) fL RDW Coeff of Leo (11.5-14.5) % Plt Count (130-400) K/uL MPV (7.4-10.4) fL Immature Gran % (Auto) % Neut % (Auto) % Lymph % (Auto) % [place]rick % (Auto) % Eos % (Auto) % Baso % (Auto) % Neut # (Auto) (1.4-6.5) K/uL Lymph # (Auto) (1.2-3.4) K/uL [place]rick # (Auto) (0.11-0.59) K/uL Eos # (Auto) (0-0.5) K/uL Baso # (Auto) (0-0.2) K/uL Immature Gran # (Auto) (0.00-0.02) K/uL Sodium 132 L (136-145) mmol/L Potassium 4.4 D (3.5-5.1) mmol/L Chloride 90 L (98-107) mmol/L Carbon Dioxide 37 H (21-32) mmol/L Anion Gap 4.0 (3-11) BUN 40 H (7-18) mg/dl Creatinine 1.01 (0.6-1.2) mg/dl Est Cr Clr Drug Dosing 57.3 ml/min Est GFR ( Amer) 64.4 ml/min Est GFR (Non-Af Amer) 55.6 ml/min BUN/Creatinine Ratio 39.9 H (10-20) Glucose 158 H (70-99) mg/dl Calcium 10.0 (8.5-10.1) mg/dl Phosphorus 3.1 (2.5-4.9) mg/dl Magnesium 2.2 (1.8-2.4) mg/dl Nasal Screen MRSA (PCR) (Negative) Medications Administered Current Inpatient Medications Acetaminophen (Acetaminophen 325 Mg Tab) 650 mg PO Q4H PRN PRN Reason: Pain or Fever Stop: 11/12/20 16:43 Last Admin: 11/01/20 03:16 Dose: 650 mg Documented by: Al Hydrox/Mg Hydrox/Simethicone (Aluminum/Magnesium Susp 30 Ml Udc) 15 ml PO Q6H PRN PRN Reason: dyspepsia Stop: 11/21/20 13:14 Last Admin: 10/23/20 09:57 Dose: 15 ml Documented by: Amitriptyline HCl (Amitriptyline Hcl 25 Mg Tab) 25 mg PO HS [facility] Stop: 11/12/20 20:59 Last Admin: 11/02/20 21:02 Dose: 25 mg Documented by: Atorvastatin Calcium (Atorvastatin 20 Mg Tab) 20 mg PO HS [facility] Stop: 11/12/20 20:59 Last Admin: 11/02/20 21:07 Dose: 20 mg Documented by: Benzonatate (Benzonatate 100 Mg Capsule) 100 mg PO TID PRN PRN Reason: Cough Stop: 11/24/20 22:46 Last Admin: 10/26/20 06:42 Dose: 100 mg Documented by: Benzonatate (Benzonatate 100 Mg Capsule) 100 mg PO TID [facility] Stop: 11/25/20 11:24 Last Admin: 11/02/20 21:04 Dose: 100 mg Documented by: Duloxetine HCl (Duloxetine Hcl 20 Mg Cap) 20 mg PO QAM [facility] Stop: 11/27/20 08:59 Last Admin: 11/02/20 08:07 Dose: 20 mg Documented by: Ferrous Sulfate (Ferrous Sulfate 325 Mg Tab) 325 mg PO DAILY [facility] Stop: 11/13/20 08:59 Last Admin: 11/02/20 08:07 Dose: 325 mg Documented by: Fluticasone Propionate (Fluticasone Propionate Na Spr 16 Gm Btl) 2 sprays NA PRN PRN PRN Reason: Congestion Stop: 11/29/20 12:29 Last Admin: 11/01/20 11:04 Dose: 2 sprays Documented by: Fluticasone/Vilanterol (Fluticasone/Vilanterol 100/25mcg 14 Puffs/Inhaler) 1 puffs INH DAILY [facility] Stop: 11/13/20 08:59 Last Admin: 11/02/20 08:07 Dose: 1 puffs Documented by: Furosemide (Furosemide 20 Mg Tab) 20 mg PO BID17 [facility]ERT Stop: 11/28/20 08:59 Last Admin: 10/30/20 08:54 Dose: Not Given Documented by: Guaifenesin (Guaifenesin 600 Mg Tabcr) 1,200 mg PO Q12 [facility] Stop: 11/28/20 08:59 Last Admin: 11/02/20 21:03 Dose: 1,200 mg Documented by: Heparin Sodium (Beef Lung) (Heparin 10 Unit/Ml 5 Ml Flush) 5 ml FLUSH PRN PRN PRN Reason: Flush Stop: 11/13/20 08:12 Last Admin: 11/02/20 15:06 Dose: 5 ml Documented by: Pantoprazole Sodium 40 mg/ (Syringe) 10 mls @ 5 mls/min IV BID [facility]ERT Stop: 11/13/20 20:59 Last Admin: 11/02/20 21:08 Dose: 5 mls/min Documented by: Furosemide 20 mg/ Syringe 2 mls @ 4 mls/min IV BID ROBERT Stop: 11/29/20 08:59 Last Admin: 11/02/20 21:07 Dose: 4 mls/min Documented by: Doxycycline Hyclate 100 mg/ (Dextrose) 110 mls @ 50 mls/hr IV Q12H ROBERT Stop: 11/07/20 06:59 Last Admin: 11/03/20 06:26 Dose: 50 mls/hr Documented by: Methylprednisolone 40 mg/ (Syringe) 0.64 mls @ 1.5 mls/min IV QAM [facility] Stop: 12/01/20 08:59 Last Admin: 11/02/20 07:45 Dose: 1.5 mls/min Documented by: Meropenem 500 mg/ Syringe 10 mls @ 2 mls/min IV Q6H ROBERT; Protocol Stop: 11/07/20 14:59 Last Admin: 11/03/20 04:06 Dose: 2 mls/min Documented by: Ipratropium [place] (Ipratropium [place] Neb Soln 0.02% 2.5 Ml Vial) 0.5 mg INH BIDR [facility] Stop: 11/25/20 18:59 Last Admin: 11/03/20 07:37 Dose: Not Given Documented by: Lactobacillus Acidoph/Casei/Rhamnos (Advanced Probiotic 1250 Mg Capsule) 2 cap PO DAILY [facility] Stop: 11/19/20 10:29 Last Admin: 11/02/20 08:07 Dose: 2 cap Documented by: Levalbuterol HCl (Levalbuterol 1.25mg/0.5ml Neb) 1.25 mg INH BIDR [facility] Stop: 11/25/20 18:59 Last Admin: 11/03/20 07:37 Dose: Not Given Documented by: Lidocaine (Lidocaine 5% 1 Patch) 1 patch TD DAILY [facility] Stop: 11/13/20 08:59 Last Admin: 11/02/20 08:07 Dose: Not Given Documented by: Lisinopril (Lisinopril 5 Mg Tab) 5 mg PO DAILY [facility] Stop: 11/13/20 08:59 Last Admin: 11/02/20 10:18 Dose: 5 mg Documented by: Lorazepam (Lorazepam 0.5 Mg Tab) 0.5 mg PO QID PRN PRN Reason: Anxiety Stop: 11/14/20 08:21 Last Admin: 11/03/20 07:15 Dose: 0.5 mg Documented by: Metoprolol Succinate (Metoprolol Succ 25mg Ext Rel Tab) 25 mg PO QAM [facility] Stop: 11/24/20 01:34 Last Admin: 11/02/20 08:08 Dose: 25 mg Documented by: Miconazole Nitrate (Miconazole Nitrate Powder 43 Gm) 1 appln EXT BID [facility] Stop: 11/24/20 22:59 Last Admin: 11/02/20 21:08 Dose: 1 appln Documented by: Miscellaneous (Remove Lidoderm Patch) 1 ea N/A DAILY@2100 [facility] Stop: 11/12/20 20:59 Last Admin: 11/02/20 21:08 Dose: 1 ea Documented by: Miscellaneous Information (Meropenem Consult Acitve) 1 ea N/A UD PRN PRN Reason: Consult Stop: 11/30/20 13:56 Montelukast Sodium (Montelukast Sodium 10 Mg Tablet) 10 mg PO [facility] Stop: 11/12/20 20:59 Last Admin: 11/02/20 21:05 Dose: 10 mg Documented by: Morphine Sulfate (Morphine Sulfate 2 Mg/Ml Carp) 1 mg IV Q6H PRN PRN Reason: Pain uncontrolled by PO meds Stop: 11/09/20 11:24 Last Admin: 11/03/20 02:15 Dose: 1 mg Documented by: Multivitamins (Multivitamin Tab) 1 tab PO QAM [facility] Stop: 11/13/20 08:59 Last Admin: 11/02/20 08:09 Dose: 1 tab Documented by: Nitroglycerin (Nitroglycerin Sl 0.4 Mg/Tab Tab) 0.4 mg SL PRN PRN PRN Reason: cp Stop: 11/23/20 23:50 Last Admin: 10/25/20 01:08 Dose: 0.4 mg Documented by: Ondansetron HCl (Ondansetron 2 Mg Od Tab) 2 mg PO Q4H PRN PRN Reason: Nausea And Vomiting Stop: 11/16/20 12:59 Last Admin: 10/29/20 07:34 Dose: 2 mg Documented by: Oxycodone HCl (Oxycodone Hcl Ir 5 Mg Tab (Immediate Release)) 5 mg PO Q6H PRN PRN Reason: pain Stop: 11/08/20 17:44 Last Admin: 11/02/20 17:34 Dose: 5 mg Documented by: Polyethylene Glycol (Polyethylene (Miralax) 17 Gm Pack) 17 gm PO BID PRN PRN Reason: constipation Stop: 11/16/20 20:59 Pregabalin (Pregabalin 100 Mg Cap) 100 mg PO BID [facility] Stop: 11/26/20 20:59 Last Admin: 11/02/20 21:36 Dose: 100 mg Documented by: Sodium Chloride (Sodium Chlor 7% 4 Ml Neb) 4 ml NEB BIDR [facility] Stop: 11/23/20 18:59 Last Admin: 11/03/20 07:37 Dose: Not Given Documented by: Trazodone HCl (Trazodone Hcl 50 Mg Tab) 50 mg PO HS [facility] Stop: 11/12/20 20:59 Last Admin: 11/02/20 21:36 Dose: 50 mg Documented by: Umeclidinium [place] (Umeclidinium [place] 62.5mcg/Blister 7 Puffs/Inhaler) 1 puffs INH DAILY [facility] Stop: 11/13/20 08:59 Last Admin: 11/02/20 08:09 Dose: 1 puffs Documented by: Vitamin D (Cholecalciferol 1,000 Units 25 Mcg Tab) 5,000 units PO DAILY [facility] Stop: 11/13/20 08:59 Last Admin: 11/02/20 08:06 Dose: 5,000 units Documented by: (1) Congestive heart failure Heart failure chronicity: acute Heart failure type: unspecified Qualified Code(s): I50.9 - Heart failure, unspecified (2) Anemia Anemia type: unspecified type Qualified Code(s): D64.9 - Anemia, unspecified (3) COPD (chronic obstructive pulmonary disease) COPD type: unspecified COPD Qualified Code(s): J44.9 - Chronic obstructive pulmonary disease, unspecified
[2020-11-03] MEDS: FLUTICASONE/VILANTEROL 100/25MCG 14 PUFFS/INHALER INH SCH (08:25)
[2020-11-03] MEDS: PANTOprazole 40 MG in SYRINGE 0 ML IV SCH ×2 (08:26→21:12)
[2020-11-03] MEDS: FUROSEMIDE 20 MG in SYRINGE 0 ML IV SCH ×2 (08:26→21:12)
[2020-11-03] MEDS: methylPREDNISolone 40 MG in SYRINGE 0 ML IV SCH (08:26)
[2020-11-03] MEDS: ADVANCED PROBIOTIC 1250 MG CAPSULE PO SCH (08:26)
[2020-11-03] MEDS: guaiFENesin 600 MG TABCR PO SCH ×2 (08:27→21:15)
[2020-11-03] MEDS: lisinopril 5 MG TAB PO SCH (08:27)
[2020-11-03] MEDS: DULoxetine HCL 20 MG CAP PO SCH (08:27)
[2020-11-03] MEDS: METOPROLOL SUCC 25MG EXT REL TAB PO SCH (08:28)
[2020-11-03] MEDS: CHOLECALCIFEROL 1,000 UNITS 25 MCG TAB PO SCH (08:28)
[2020-11-03] MEDS: FERROUS SULFATE 325 MG TAB PO SCH (08:28)
[2020-11-03] MEDS: MULTIVITAMIN TAB PO SCH (08:29)
[2020-11-03] MEDS: MICONAZOLE NITRATE POWDER 43 GM EXT SCH ×2 (08:29→21:16)
[2020-11-03] MEDS: UMECLIDINIUM BROMIDE 62.5MCG/BLISTER 7 PUFFS/INHALER INH SCH (08:31)
[2020-11-03] MEDS: PREGABALIN 100 MG CAP PO SCH ×2 (10:02→21:28)
[2020-11-03] MEDS: oxyCODONE HCL IR 5 MG TAB (IMMEDIATE RELEASE) PO PRN ×2 (10:02→16:17)
[2020-11-03] MEDS: LIDOCAINE 5% 1 PATCH TD SCH (10:02)
[2020-11-03] MEDS: BENZONATATE 100 MG CAPSULE PO SCH ×3 (10:02→21:28)
--- NOTE | 2020-11-03 13:18 | Palliative Care Progress Note ---
Date of Service November 03, 2020 Assessment & Plan (1) Buttock pain: Neuropathic. Some improvement with duloxetine and topical barrier cream. (2) Palliative care encounter: We talked about her not using the bipap and the problem that presents with her being hypercarbic. If she continues to refuse bipap, this will be life ending for her. She is not able to tolerate the mask and consistently says that she will not wear bipap. She talks about the poor quality of life that she has with visual impairment, functional impairment and chronic pain. We discussed option to pursue comfort directed care without bipap or additional life prolonging measures. She tells me that this is what she wants to do. I spoke with her son, Eduardo, on the phone. He notes that she does have poor quality of life and has indicated in the past that she would not want to prolong her dying time. He is supportive of her decision to focus on comfort directed care. They are cleaning out her apartment as she is not able to live independently. They would like to pursue SNF placement with [facility] their first choice. (3) Depression: Now on duloxetine. Initially concerned that her request to was motivated by depression and frustration with her chronic problems. After further discussion it is clear that she understands her decision and it is not driven by her depression. (4) Acute on chronic respiratory failure with hypoxia and hypercapnia: (5) Musculoskeletal chest pain: Admission and Anticipated Discharge Date Admission Date: October 13, 2020 Subjective Some improvement in neuropathic pain. She has had some relief with morphine. She is refusing bipap. Review of Systems Review of Systems: [place] Symptom Assessment Scale Pain 2/3 Dyspnea 1/3 Nausea 0/3 Anxiety 2/3 Fatigue 2/3 Drowsiness 0/3 Palliative Performance Score 30% Physical Exam Constitutional: no acute distress Eyes: visual impairment ENMT: Mouth: oral mucous membranes not dry Respiratory: no labored breathing Gastrointestinal (Abdomen): Inspection/Auscultation: abdomen not distended Musculoskeletal: Extremities: + muscle atrophy Neurologic: awake; not confused Results & Data ([facility]) Vital Signs (Past 12 Hours) Vital Signs Temp Pulse Pulse Resp BP Pulse Ox 11/03/20 11:45 98.1 F 63 16 128/67 93 11/03/20 07:34 98.6 F 81 20 125/65 94 11/03/20 07:23 68 11/03/20 03:13 98.2 F 72 18 137/70 95 PG Care Time/CCT Total # of Minutes Spent Total Time Spent with Patient: Total time spent is greater than 50% in coordination of care (as documented) at patient's floor/unit and/or counseling patient: total time spent 40 minutes with more than 50% of time spent on goals of care, symptom management, family update and support Coding Level of Care Code 65554 Subseq Hosp Care Lvl 3 Diagnoses Buttock pain M79.18 Palliative care encounter Z51.5 Depression F32.9 Acute on chronic respiratory failure with hypoxia and hypercapnia J96.21; J96.22 Musculoskeletal chest pain R07.89
[2020-11-03] MEDS: MONTELUKAST SODIUM 10 MG TABLET PO SCH (21:15)
[2020-11-03] MEDS: ATORVASTATIN 20 MG TAB PO SCH (21:15)
[2020-11-03] MEDS: traZODone HCL 50 MG TAB PO SCH (21:28)
[2020-11-03] MEDS: AMITRIPTYLINE HCL 25 MG TAB PO SCH (22:17)
[2020-11-04] MEDS: LORazepam 0.5 MG TAB PO PRN ×2 (00:43→12:40)
[2020-11-04] MEDS: MEROPENEM 500 MG in SYRINGE 0 ML IV SCH ×4 (03:18→21:26)
[2020-11-04 06:12] LABS: Hemoglobin 9.8 g/dL (12.0-16.0); Mean Corpuscular Hemoglobin 29.3 pg (25-34); Mean Corpuscular Hgb Conc 31.6 g/dL (32-36); Mean Corpuscular Volume 92.8 fL (80-100); Mean Platelet Volume 10.2 fL (7.4-10.4); Platelet Count 263 K/uL (130-400); RDW Coefficient of Variation 15.6 % (11.5-14.5); RDW Standard Deviation 53.1 fL (36.4-46.3); Red Blood Count 3.34 M/uL (4.2-5.4); White Blood Count 8.76 K/uL (4.8-10.8)
[2020-11-04] MEDS: DOXYCYCLINE HYCLATE 100 MG in DEXTROSE 5% 100 ML IV SCH ×2 (06:20→18:07)
[2020-11-04 06:40] LABS: BUN Creatinine Ratio 60.9 (10-20); Calcium 9.9 mg/dl (8.5-10.1); Creatinine Clr Calc Pharmacy 59.7 ml/min; Est GFR (African American) 67.6 ml/min; Est GFR (Non-African American) 58.3 ml/min; Potassium 4.9 mmol/L (3.5-5.1)
--- NOTE | 2020-11-04 07:22 | Hospitalist Progress Note ---
Date of Service November 04, 2020 Assessment & Plan (1) Acute on chronic respiratory failure with hypoxia and hypercapnia: Aspiration pneumonia patient is a 70-year-old female with past medical history of diastolic heart failure, COPD, anxiety, depression, CKD stage III, hypertension, chronic indwelling Hernandez catheter and GERD presented to the ED with shortness of breath and acute on chronic anemia. CXR on admission showed cardiomegaly and radiographic evidence of pulmonary vas cular congestion with bilateral pleural effusions. Right upper lobe airspace opacities, pneumonia versus asymmetric edema. CT chest showed multifocal airspace consolidation is seen throughout both lungs. The appearance is typical for pneumonia/aspiration pneumonitis. Small to moderate pleural effusions. Patient is chronically on 2 L of nasal cannula due to COPD On admission was on 3 to 4 L in the hospital however overnight her oxygen requirement increased significantly, to 10 L (10/15) ABG -pH 7.36, PCO2 70, PO2 60, bicarb 39 Repeat CXR on 10/21 showed mild interval improvement/redistribution of bilateral pleural effusion. Unchanged opacities within bilateral lungs which could represent pneumonia. Antibiotics started by assembler latches and springs/ertapenem, then switched to cefepime to cover for possible Pseudomonas , added flagyl for anaerobic coverage Also started on vancomycin, obtained MRSA nasal swab - negative Discussed linezolid, however due to patient's medication such as Celexa or nortriptyline, linezolid is contraindicated Guaifenesin, flutter valve and incentive spirometry started Pulmonary medicine consulted, recommend CT chest without contrast, which was ordered MRSA nasal swab negative, Vancomycin was discontinued Switch cefepime and flagyl to zosyn. Cont. to monitor closely resp. status and oxygen requirements which seem to fluctuate between 3 and 7L. Encourage flutter valve, IS. Repeat CXR showed no change in the diffuse interstitial thickening and right lung airspace opacities. Switched to PO Augmentin and continue neb treatment and oxygen supplement 10/28/20 Possible aspiration pneumonia CXR showed increasing airspace consolidation throughout the right lung, as well as increasing patchy airspace consolidation in the left lung. CT chest showed Multifocal airspace consolidation is again seen throughout both lungs. The appearance is typical for pneumonia/aspiration pneumonitis, and this has increased throughout the right upper lung as compared to 10/15/2020. Case discussed with pulmonary again - recommended IV lasix and IV steroid Abx changed from Augmentin to IV Zosyn Pulm recommended 7 days of abx course for the pneumonia Continue oxygen supplement Video swallow showed no aspiration identified. Continue PO prednisone palliative care on board for goal of care Re-consulted pulmonary medicine (10/30/20) - as pt's respiratory status not improving much and spiked fever CT chest ordered, procal, sputum cultx, ABG Pulmonary recommend ID consult re: fever After discussion with ID, patient switched to meropenem and doxycycline. Also given possibility of reaction to Dapto, continue steroid was recommended. (11/03) Her breathing status has improved, currently on 10 L down from 12 of O2 via NC (2) COPD (chronic obstructive pulmonary disease): - cont.medications as above/ per pulmonary (3) Acute on chronic diastolic CHF (congestive heart failure): (4) Elevated troponin: (5) Congestive heart failure: On admission - Chest x-ray with some pulmonary vascular congestion and some right upper lobe airspace opacities patient denied any cough, fever and absence of any leukocytosis. proBNP of 11,000 on admission. Cardiac enzymes were not concerning. Does use 2-3 L of nasal cannula at baseline, on 4 L of nasal cannula on 10/14 Initially Continued with IV Lasix 40 mg twice daily. Continue to monitor ins and outs along with daily weights. Echo obtained, no change compared to previous study in August 2020. Normal LV systolic function without regional wall motion abnormality, EF 60 to 65%. Cardiology consulted - as patient also complained of chest pain. Chest pain seems to be musculoskeletal in origin. Patient did not appear fluid overload and it was recommended that IV Lasix is stopped and patient is restarted on her home p.o. Lasix. We will continue to closely monitor After aspiration event CT chest obtained, which showed consolidation and also pl. effusions, cont. w/ IV lasix and albumin , as above 10/28/20 Chest pain pleuritic and reproducible in nature - cardiology recommends pain management consult Mostly costochondritis due to the recent fall Troponin mildly elevated mostly to hypoxic respiratory failure and elevated creatinine and chronic EKG showed no acute ischemic changes Heparin drip was starting by the nocturnal provider Case discussed with cardiology that recommended to discontinue the IV heparin drip No additional cardiac testing needed Continue Lasix Speech recommended slippery diet with thin liquid Continue pain management, palliative medicine also consulted (6) GERD (gastroesophageal reflux disease): (7) Anemia: GI bleed H. pylori Acute on chronic blood loss anemia - seen by GI at [facility] and also here -At [place] presented with with coffee-ground emesis on arrival -At [place] she underwent EGD (09/22/20), which showed gastritis and small gastric ulcer with no active bleeding. She was found to have H. pylori, and was treated. She finished treatment on October 07 -She is supposed to have a follow-up EGD in 8 weeks to assess ulcer healing (w/ [facility]) -Per [facility] - continue PPI, trend H&H, transfuse as needed, follow up w/ [place] providers -Patient was transfused in [place], and she also obtained 2 units of PRBCs here on admission Hgb stable 9.2 (10/20) Monitor H&H, cont. to closely monitor, may require another blood transfusion given her cardiac hx Hgb stable at~ 9 Fever pt had a fever overnight switch Augmentin back to zosyn obtain blood cultx, CXR, UA/U cultx -pt has pna and recent orthopedic procedure however she has been doing well -she has chronic Hernandez - concern for UA -loose stools - obtain c. diff -Hernandez removed - per nursing staff tip of catheter w/ stool -continue with straight cath - obtain CT abdomen/pelvis to eval for possible bladder/bowel fistula -Augmentin changed to IV Zosyn -Continued IV Zosyn Repeat Fever (10/30/20) Pt spiked fever again today despite being on daptomycin (per ortho ID) and on zosyn for aspiration pneumonia -Blood cultures obtained, UA urine culture, sputum culture, procalcitonin, C. difficile, chest x-ray, CT chest -Orthopedic surgery re-evaluated the patient, they don't see any issues with the incision, looks clean, not infected UA - negative Blood cultx - pending ID consulted for further recs -recommend to discontinue daptomycin, and Zosyn, patient is now on meropenem and doxycycline (10/31) In addition concern for reaction to Dapto, and therefore it was not recommended to stop steroids. Elevated WBC Mostly related to steroid on IV Zosyn and Dapto 10/31 - now changed from Dapto and Zosyn to meropenem and doxycycline, as above 11/02 WBC resolved 7-8K (8) Right femoral fracture: -In [place] underwent right femur removal of hardware. Revision ORIF of right femur. Wound debridement and closure. Placement of antibiotic delivery device. On September 24, 2020, by . -Postop plan at that time was patient will be weightbearing as tolerated on her right lower extremity. She will begin DVT prophylaxis starting the night of postoperative day 0. Orthopedic infectious disease will provide recommendations for antibiotics postoperatively. Will obtain final x-rays of her right femur. Per hospitalist discharge summary, patient was discharged to [facility] -Intraoperative cultures grew 1+ E. faecium and few Staph aureus resistant to oxacillin. Ortho ID was following and recommended daptomycin 900 mg IV daily from September 25 to November 05, 2020. With follow-up CPK weekly, weightbearing of the right lower extremity as tolerated. PICC line was placed for 6 weeks of antibiotics. Following 6 weeks of IV antibiotics, plan will be to indefinitely suppressed with doxycycline monohydrate 100 mg p.o. twice daily due to the presence of extensive hardware in the limb. Lab results to be faxed to ID office at , outpatient follow-up with Ortho ID (Daptomycin dose was confirmed between Ortho ID in [place] and pharmacist at [facility]) -DVT prophylaxis achieved with Lovenox 40 twice daily for 3 weeks, end date October 14 -Per discharge summary, patient supposed to follow-up with orthopedics, Dr. Kaba, on October 14 - reschedule follow up -[facility] - can be contacted at -On current admission, R leg - several incisions with sutures in place, one higher up on the thigh another one lateral to the knee -wound care was consulted as well as orthopedics given her extensive history and poorly healing wounds - per ortho no current issues (9) Morbid obesity: - needs counselling (10) Weakness: (11) Depression: (12) Anxiety: - cont home medications - ativan decreased as per nursing staff pt becomes very somnolent w/ meds - Palliative medicine consulted - started on duloxetine (13) History of pulmonary embolism: (14) CKD (chronic kidney disease) stage 3, GFR 30-59 ml/min: BLANCO on CKD 3 Possible related to contrast and Lasix CT abd/pelvis showed no hydronephrosis Creatinine 1.25 now improved 1.1 Lasix 40mg x1 IV given, now on 20 IV bid Has been diuresis well Continue monitor BMP (15) Hypertension: (16) Hyperlipidemia: - monitor BP, cont. home meds (17) Chronic indwelling Hernandez catheter: -Patient was having loose stools after requiring enema and disimpaction for constipation - fever (10/21), Hernandez removed and noted stool at the tip of catheter - Negative urine cx - CT abdomen/pelvis showed no bladder/bowel fistula - repeat fever on (10/30), will remove hernandez and will obtain urine cultx - negative, UA - negative Dispo: eventually plan to DC to SNF Admission and Anticipated Discharge Date Admission Date: October 13, 2020 Subjective Pt was seen and examined for follow up of SOB Lying in bed with no acute distress , breathing comfortably on 9-10L Has no new complaints at this time Denies any chest pain, shortness of breath, dizziness, abdominal pain, nausea or vomiting Discussed trying to use CPAP, and flutter valve, incentive spirometry Patient reports using flutter valve however very reluctant about CPAP Plan to eventually DC to SNF Review of Systems Review of Systems: All systems reviewed & are unremarkable except as noted in HPI & below Constitutional: + weakness; no fever and no chills Respiratory: + cough and + dyspnea (improved) Cardiovascular: no palpitations Gastrointestinal: no abdominal pain, no nausea and no vomiting Physical Exam Physical Exam: General- elderly obese female, laying in bed, in No acute distress, on suppl. O2 Head- atraumatic Eyes- PERRL, EOMI, ENT- oropharynx clear Neck- supple, no JVD Lungs- CTAB, no wheezing, minimal crackles on R, rhonchi on R (exam much improved) Heart- regular rhythm; no murmur Abdomen- normal bowel sounds, soft, nontender Extremities- no calf tenderness, moves extremities Neuro- alert, oriented x 3; PERRL, EOMI; no facial palsy; no dysarthria Skin- warm & dry Results & Data Results & Data ([facility]) Vital Signs (Past 12 Hours) Vital Signs Temp Pulse Pulse Resp BP Pulse Ox 11/04/20 04:43 36.5 C 68 16 136/65 95 11/03/20 23:49 36.9 C 74 72 18 107/58 L 94 11/03/20 19:37 36.5 C 72 22 115/65 95 Laboratory Results 11/04/20 11/04/20 Range/Units 05:58 05:58 WBC 8.76 (4.8-10.8) K/uL RBC 3.34 L (4.2-5.4) M/uL Hgb 9.8 L (12.0-16.0) g/dL Hct 31.0 L (37-47) % MCV 92.8 (80-100) fL MCH 29.3 (25-34) pg MCHC 31.6 L (32-36) g/dL RDW Std Deviation 53.1 H (36.4-46.3) fL RDW Coeff of Leo 15.6 H (11.5-14.5) % Plt Count 263 (130-400) K/uL MPV 10.2 (7.4-10.4) fL Sodium 133 L (136-145) mmol/L Potassium 4.9 (3.5-5.1) mmol/L Chloride 94 L (98-107) mmol/L Carbon Dioxide 34 H (21-32) mmol/L Anion Gap 6.0 (3-11) BUN 59 H (7-18) mg/dl Creatinine 0.97 (0.6-1.2) mg/dl Est Cr Clr Drug Dosing 59.7 ml/min Est GFR ( Amer) 67.6 ml/min Est GFR (Non-Af Amer) 58.3 ml/min BUN/Creatinine Ratio 60.9 H (10-20) Glucose 89 (70-99) mg/dl Calcium 9.9 (8.5-10.1) mg/dl Medications Administered Current Inpatient Medications Acetaminophen (Acetaminophen 325 Mg Tab) 650 mg PO Q4H PRN PRN Reason: Pain or Fever Stop: 11/12/20 16:43 Last Admin: 11/01/20 03:16 Dose: 650 mg Documented by: Al Hydrox/Mg Hydrox/Simethicone (Aluminum/Magnesium Susp 30 Ml Udc) 15 ml PO Q6H PRN PRN Reason: dyspepsia Stop: 11/21/20 13:14 Last Admin: 10/23/20 09:57 Dose: 15 ml Documented by: Amitriptyline HCl (Amitriptyline Hcl 25 Mg Tab) 25 mg PO HS ROBERT Stop: 11/12/20 20:59 Atorvastatin Calcium (Atorvastatin 20 Mg Tab) 20 mg PO HS ROBERT Stop: 11/12/20 20:59 Last Admin: 11/03/20 21:15 Dose: 20 mg Documented by: Benzonatate (Benzonatate 100 Mg Capsule) 100 mg PO TID PRN PRN Reason: Cough Stop: 11/24/20 22:46 Last Admin: 10/26/20 06:42 Dose: 100 mg Documented by: Benzonatate (Benzonatate 100 Mg Capsule) 100 mg PO TID ROBERT Stop: 11/25/20 11:24 Last Admin: 11/03/20 21:28 Dose: 100 mg Documented by: Duloxetine HCl (Duloxetine Hcl 20 Mg Cap) 20 mg PO QAM ROBERT Stop: 11/27/20 08:59 Last Admin: 11/03/20 08:27 Dose: 20 mg Documented by: Ferrous Sulfate (Ferrous Sulfate 325 Mg Tab) 325 mg PO DAILY ROBERT Stop: 11/13/20 08:59 Last Admin: 11/03/20 08:28 Dose: 325 mg Documented by: Fluticasone Propionate (Fluticasone Propionate Na Spr 16 Gm Btl) 2 sprays NA PRN PRN PRN Reason: Congestion Stop: 11/29/20 12:29 Last Admin: 11/01/20 11:04 Dose: 2 sprays Documented by: Fluticasone/Vilanterol (Fluticasone/Vilanterol 100/25mcg 14 Puffs/Inhaler) 1 puffs INH DAILY ROBERT Stop: 11/13/20 08:59 Last Admin: 11/03/20 08:25 Dose: 1 puffs Documented by: Furosemide (Furosemide 20 Mg Tab) 20 mg PO BID17 ROBERT Stop: 11/28/20 08:59 Last Admin: 10/30/20 08:54 Dose: Not Given Documented by: Guaifenesin (Guaifenesin 600 Mg Tabcr) 1,200 mg PO Q12 ROBERT Stop: 11/28/20 08:59 Last Admin: 11/03/20 21:15 Dose: 1,200 mg Documented by: Heparin Sodium (Beef Lung) (Heparin 10 Unit/Ml 5 Ml Flush) 5 ml FLUSH PRN PRN PRN Reason: Flush Stop: 11/13/20 08:12 Last Admin: 11/03/20 12:53 Dose: 5 ml Documented by: Pantoprazole Sodium 40 mg/ (Syringe) 10 mls @ 5 mls/min IV BID ROBERT Stop: 11/13/20 20:59 Last Admin: 11/03/20 21:12 Dose: 5 mls/min Documented by: Furosemide 20 mg/ Syringe 2 mls @ 4 mls/min IV BID ROBERT Stop: 11/29/20 08:59 Last Admin: 11/03/20 21:12 Dose: 4 mls/min Documented by: Doxycycline Hyclate 100 mg/ (Dextrose) 110 mls @ 50 mls/hr IV Q12H ROBERT Stop: 11/07/20 06:59 Last Admin: 11/04/20 06:20 Dose: 50 mls/hr Documented by: Methylprednisolone 40 mg/ (Syringe) 0.64 mls @ 1.5 mls/min IV QAM ROBERT Stop: 12/01/20 08:59 Last Admin: 11/03/20 08:26 Dose: 1.5 mls/min Documented by: Meropenem 500 mg/ Syringe 10 mls @ 2 mls/min IV Q6H [facility]; Protocol Stop: 11/07/20 14:59 Last Admin: 11/04/20 03:18 Dose: 2 mls/min Documented by: Ipratropium [place] (Ipratropium [place] Neb Soln 0.02% 2.5 Ml Vial) 0.5 mg INH BIDR [facility] Stop: 11/25/20 18:59 Last Admin: 11/03/20 19:41 Dose: Not Given Documented by: Lactobacillus Acidoph/Casei/Rhamnos (Advanced Probiotic 1250 Mg Capsule) 2 cap PO DAILY ROBERT Stop: 11/19/20 10:29 Last Admin: 11/03/20 08:26 Dose: 2 cap Documented by: Levalbuterol HCl (Levalbuterol 1.25mg/0.5ml Neb) 1.25 mg INH BIDR [facility] Stop: 11/25/20 18:59 Last Admin: 11/03/20 19:41 Dose: Not Given Documented by: Lidocaine (Lidocaine 5% 1 Patch) 1 patch TD DAILY ROBERT Stop: 11/13/20 08:59 Last Admin: 11/03/20 10:02 Dose: Not Given Documented by: Lisinopril (Lisinopril 5 Mg Tab) 5 mg PO DAILY [facility] Stop: 11/13/20 08:59 Last Admin: 11/03/20 08:27 Dose: 5 mg Documented by: Lorazepam (Lorazepam 0.5 Mg Tab) 0.5 mg PO QID PRN PRN Reason: Anxiety Stop: 11/14/20 08:21 Last Admin: 11/04/20 00:43 Dose: 0.5 mg Documented by: Metoprolol Succinate (Metoprolol Succ 25mg Ext Rel Tab) 25 mg PO QAM [facility] Stop: 11/24/20 01:34 Last Admin: 11/03/20 08:28 Dose: 25 mg Documented by: Miconazole Nitrate (Miconazole Nitrate Powder 43 Gm) 1 appln EXT BID [facility] Stop: 11/24/20 22:59 Last Admin: 11/03/20 21:16 Dose: 1 appln Documented by: Miscellaneous (Remove Lidoderm Patch) 1 ea N/A DAILY@2100 [facility] Stop: 11/12/20 20:59 Last Admin: 11/03/20 21:13 Dose: 1 ea Documented by: Miscellaneous Information (Meropenem Consult Acitve) 1 ea N/A UD PRN PRN Reason: Consult Stop: 11/30/20 13:56 Montelukast Sodium (Montelukast Sodium 10 Mg Tablet) 10 mg PO HS [facility] Stop: 11/12/20 20:59 Last Admin: 11/03/20 21:15 Dose: 10 mg Documented by: Morphine Sulfate (Morphine Sulfate 2 Mg/Ml Carp) 1 mg IV Q6H PRN PRN Reason: Pain uncontrolled by PO meds Stop: 11/09/20 11:24 Last Admin: 11/03/20 21:29 Dose: 1 mg Documented by: Multivitamins ([facility]ivitamin Tab) [facility] [place] Stop: 11/13/20 08:59 Last Admin: 11/03/20 08:29 Dose: 1 tab Documented by: Nitroglycerin (Nitroglycerin Sl 0.4 Mg/Tab Tab) 0.4 mg SL PRN PRN PRN Reason: cp Stop: 11/23/20 23:50 Last Admin: 10/25/20 01:08 Dose: 0.4 mg Documented by: Ondansetron HCl (Ondansetron 2 Mg Od Tab) 2 mg PO Q4H PRN PRN Reason: Nausea And Vomiting Stop: 11/16/20 12:59 Last Admin: 10/29/20 07:34 Dose: 2 mg Documented by: Oxycodone HCl (Oxycodone Hcl Ir 5 Mg Tab (Immediate Release)) 5 mg PO Q6H PRN PRN Reason: pain Stop: 11/08/20 17:44 Last Admin: 11/03/20 16:17 Dose: 5 mg Documented by: Polyethylene Glycol (Polyethylene (Miralax) 17 Gm Pack) 17 gm PO BID PRN PRN Reason: constipation Stop: 11/16/20 20:59 Pregabalin (Pregabalin 100 Mg Cap) 100 mg PO BID ROBERT Stop: 11/26/20 20:59 Last Admin: 11/03/20 21:28 Dose: 100 mg Documented by: Sodium Chloride (Sodium Chlor 7% 4 Ml Neb) 4 ml NEB BIDR ROBERT Stop: 11/23/20 18:59 Last Admin: 11/03/20 19:41 Dose: Not Given Documented by: Trazodone HCl (Trazodone Hcl 50 Mg Tab) 50 mg PO HS ROBERT Stop: 11/12/20 20:59 Last Admin: 11/03/20 21:28 Dose: 50 mg Documented by: Umeclidinium [place] (Umeclidinium [place] 62.5mcg/Blister 7 Puffs/Inhaler) 1 puffs INH DAILY ROBERT Stop: 11/13/20 08:59 Last Admin: 11/03/20 08:31 Dose: 1 puffs Documented by: Vitamin D (Cholecalciferol 1,000 Units 25 Mcg Tab) 5,000 units PO DAILY ROBERT Stop: 11/13/20 08:59 Last Admin: 11/03/20 08:28 Dose: 5,000 units Documented by: (1) Congestive heart failure Heart failure chronicity: acute Heart failure type: unspecified Qualified Code(s): I50.9 - Heart failure, unspecified (2) Anemia Anemia type: unspecified type Qualified Code(s): D64.9 - Anemia, unspecified (3) COPD (chronic obstructive pulmonary disease) COPD type: unspecified COPD Qualified Code(s): J44.9 - Chronic obstructive pulmonary disease, unspecified
[2020-11-04] MEDS: SODIUM CHLOR 7% 4 ML NEB NEB SCH ×2 (08:19→20:20)
[2020-11-04] MEDS: LEVALBUTEROL 1.25MG/0.5ML NEB INH SCH ×2 (08:19→20:20)
[2020-11-04] MEDS: IPRATROPIUM BROMIDE NEB SOLN 0.02% 2.5 ML VIAL INH SCH ×2 (08:20→20:20)
[2020-11-04] MEDS: oxyCODONE HCL IR 5 MG TAB (IMMEDIATE RELEASE) PO PRN (08:54)
[2020-11-04] MEDS: METOPROLOL SUCC 25MG EXT REL TAB PO SCH (09:01)
[2020-11-04] MEDS: FERROUS SULFATE 325 MG TAB PO SCH (09:01)
[2020-11-04] MEDS: ADVANCED PROBIOTIC 1250 MG CAPSULE PO SCH (09:01)
[2020-11-04] MEDS: CHOLECALCIFEROL 1,000 UNITS 25 MCG TAB PO SCH (09:01)
[2020-11-04] MEDS: lisinopril 5 MG TAB PO SCH (09:01)
[2020-11-04] MEDS: guaiFENesin 600 MG TABCR PO SCH ×2 (09:01→21:29)
[2020-11-04] MEDS: DULoxetine HCL 20 MG CAP PO SCH (09:01)
[2020-11-04] MEDS: FUROSEMIDE 20 MG in SYRINGE 0 ML IV SCH ×2 (09:02→21:27)
[2020-11-04] MEDS: UMECLIDINIUM BROMIDE 62.5MCG/BLISTER 7 PUFFS/INHALER INH SCH (09:02)
[2020-11-04] MEDS: MULTIVITAMIN TAB PO SCH (09:02)
[2020-11-04] MEDS: FLUTICASONE/VILANTEROL 100/25MCG 14 PUFFS/INHALER INH SCH (09:02)
[2020-11-04] MEDS: PANTOprazole 40 MG in SYRINGE 0 ML IV SCH ×2 (09:03→21:27)
[2020-11-04] MEDS: methylPREDNISolone 40 MG in SYRINGE 0 ML IV SCH (09:03)
[2020-11-04] MEDS: PREGABALIN 100 MG CAP PO SCH ×2 (09:04→21:26)
[2020-11-04] MEDS: LIDOCAINE 5% 1 PATCH TD SCH (09:04)
[2020-11-04] MEDS: BENZONATATE 100 MG CAPSULE PO SCH ×3 (09:06→21:26)
[2020-11-04] MEDS: POLYETHYLENE (MIRALAX) 17 GM PACK PO PRN (10:07)
[2020-11-04] MEDS: MICONAZOLE NITRATE POWDER 43 GM EXT SCH ×2 (10:09→21:30)
[2020-11-04] MEDS: MoRPHine SULFATE 2 MG/ML CARP IV PRN ×2 (10:58→21:26)
[2020-11-04] MEDS: ONDANSETRON 2 MG OD TAB PO PRN (12:41)
[2020-11-04] MEDS: traZODone HCL 50 MG TAB PO SCH (21:26)
[2020-11-04] MEDS: AMITRIPTYLINE HCL 25 MG TAB PO SCH (21:30)
[2020-11-04] MEDS: MONTELUKAST SODIUM 10 MG TABLET PO SCH (21:30)
[2020-11-04] MEDS: ATORVASTATIN 20 MG TAB PO SCH (21:30)
[2020-11-05] MEDS: MEROPENEM 500 MG in SYRINGE 0 ML IV SCH ×4 (04:06→21:10)
[2020-11-05] MEDS: DOXYCYCLINE HYCLATE 100 MG in DEXTROSE 5% 100 ML IV SCH ×2 (05:49→18:07)
[2020-11-05 05:57] LABS: Hemoglobin 9.7 g/dL (12.0-16.0); Mean Corpuscular Hemoglobin 28.7 pg (25-34); Mean Corpuscular Hgb Conc 31.3 g/dL (32-36); Mean Corpuscular Volume 91.7 fL (80-100); Mean Platelet Volume 10.3 fL (7.4-10.4); Platelet Count 255 K/uL (130-400); RDW Coefficient of Variation 15.6 % (11.5-14.5); RDW Standard Deviation 52.6 fL (36.4-46.3); Red Blood Count 3.38 M/uL (4.2-5.4); White Blood Count 7.12 K/uL (4.8-10.8)
[2020-11-05] MEDS: LORazepam 0.5 MG TAB PO PRN ×2 (06:13→14:57)
[2020-11-05 06:26] LABS: BUN Creatinine Ratio 60.8 (10-20); Calcium 9.6 mg/dl (8.5-10.1); Creatinine Clr Calc Pharmacy 66.2 ml/min; Est GFR (African American) 70.2 ml/min; Est GFR (Non-African American) 60.6 ml/min; Potassium 4.8 mmol/L (3.5-5.1)
[2020-11-05] MEDS: IPRATROPIUM BROMIDE NEB SOLN 0.02% 2.5 ML VIAL INH SCH (07:18)
[2020-11-05] MEDS: LEVALBUTEROL 1.25MG/0.5ML NEB INH SCH (07:18)
[2020-11-05] MEDS: SODIUM CHLOR 7% 4 ML NEB NEB SCH (07:18)
[2020-11-05] MEDS: BENZONATATE 100 MG CAPSULE PO SCH ×3 (08:12→21:07)
[2020-11-05] MEDS: LIDOCAINE 5% 1 PATCH TD SCH (08:15)
[2020-11-05] MEDS: MULTIVITAMIN TAB PO SCH (08:16)
[2020-11-05] MEDS: guaiFENesin 600 MG TABCR PO SCH ×2 (08:16→21:09)
[2020-11-05] MEDS: predniSONE 20 MG TAB PO SCH (08:16)
[2020-11-05] MEDS: METOPROLOL SUCC 25MG EXT REL TAB PO SCH (08:16)
[2020-11-05] MEDS: PREGABALIN 100 MG CAP PO SCH ×2 (08:16→21:19)
[2020-11-05] MEDS: FLUTICASONE/VILANTEROL 100/25MCG 14 PUFFS/INHALER INH SCH (08:17)
[2020-11-05] MEDS: PANTOprazole 40 MG in SYRINGE 0 ML IV SCH ×2 (08:17→21:11)
[2020-11-05] MEDS: FERROUS SULFATE 325 MG TAB PO SCH (08:17)
[2020-11-05] MEDS: CHOLECALCIFEROL 1,000 UNITS 25 MCG TAB PO SCH (08:17)
[2020-11-05] MEDS: UMECLIDINIUM BROMIDE 62.5MCG/BLISTER 7 PUFFS/INHALER INH SCH (08:17)
[2020-11-05] MEDS: FUROSEMIDE 20 MG in SYRINGE 0 ML IV SCH ×2 (08:17→21:08)
[2020-11-05] MEDS: ADVANCED PROBIOTIC 1250 MG CAPSULE PO SCH (08:17)
[2020-11-05] MEDS: DULoxetine HCL 20 MG CAP PO SCH (08:17)
[2020-11-05] MEDS: lisinopril 5 MG TAB PO SCH (08:17)
[2020-11-05] MEDS: MICONAZOLE NITRATE POWDER 43 GM EXT SCH ×2 (08:21→21:10)
--- NOTE | 2020-11-05 09:42 | Orthopedic Progress Note ---
Date of Service November 05, 2020 Assessment & Plan (1) Right femoral fracture: S/p ORIF right periprosthetic femur fracture with subsequent post op infection with MRSA, then S/p I&D, revision ORIF right femur in [place] Encouraged her to get out of bed, to atleast sit at the side of the bed to dangle. Needs to continue to build strength. Walker to assist with ambulation. She can continue to be out of bed, WBAT RLE, full ROM right lower extremity Continue antibiotics as ordered Findings discussed with Dr. Tobar. Please call us with any further questions or concerns. Follow up with [facility] - Dr. Kaba as planned. Admission and Anticipated Discharge Date Admission Date: October 13, 2020 Subjective Patient lying in bed, states that she does not have pain and is breathing better the past few days. She states that she has not been out of bed, because she doesn't want to. She's fearful of falling. Physical Exam Physical Exam: Incisions assessed. No active drainage. Proximal incision nontender, no edema or induration. No active drainage. Nontender to palpation. No warmth, erythema or ecchymosis. She is able to actively SLR RLE off her bed 3 inches or so. No effusion right knee joint, but nontender to palpation, tolerates active ROM to 70 degrees today, no pain with passive ROM of right knee or right hip. previous incision right knee - anterior healed. Distal incision is healed, no active drainage, less induration and redness than even 3 days ago. No surrounding fluctuance. No tenderness with palpation of incision. Minimal erythema and mild warmth, but not hot. Results & Data ([facility]) Vital Signs (Past 12 Hours) Vital Signs Temp Pulse Pulse Resp BP Pulse Ox 11/05/20 07:13 36.7 C 67 18 124/64 93 11/05/20 07:00 66 11/05/20 04:40 66 11/05/20 03:00 36.8 C 66 20 139/63 93 11/04/20 23:00 36.8 C 68 20 123/63 93
[2020-11-05] MEDS: oxyCODONE HCL IR 5 MG TAB (IMMEDIATE RELEASE) PO PRN (09:43)
--- NOTE | 2020-11-05 10:42 | XRay Report ---
XR chest 1V portable CLINICAL HISTORY: follow up COMPARISON STUDY: October 30, 2020 FINDINGS: No pneumothorax. There is interval worsening/redistribution of the right pleural effusion. Previously seen opacity silhouetting left hemidiaphragm is significantly improved and could represent pleural effusion and atelectasis/infiltrate. Overall evaluation is limited due to rotation. Previously seen dense opacity at the right upper lung region is improved. Cardiomediastinal silhouette is poorly seen due to rotation. No significant pulmonary vascular congestion.. Osseous structures: Osteopenia. Vertebral bodies are not well seen. Redemonstration of the right PICC line, position and is difficult to assess due to rotation. IMPRESSION: 1. Interval improvement of opacity within right upper lung and left lower lung likely representing i mprovement of pneumonia. 2. Right pleural effusion appears to be worsened and which could be due to redistribution. Evaluatio n is limited due to rotation. Further evaluation with PA and lateral chest radiograph is suggested. ACT 112: Negative or not required by law. The above report was generated using voice recognition software. It may contain grammatical, syntax o r spelling errors. Electronically signed by: Laure Corbin DO 11/05/2020 10:41 AM
--- NOTE | 2020-11-05 12:29 | Palliative Care Progress Note ---
Date of Service November 05, 2020 Assessment & Plan (1) Buttock pain: Some improvement with duloxetine and topical barrier cream. Will stop oxycodone which has not been effective for her. She understands that she will not have IV morphine after discharge. Will trial roxanol as she has had better relief with morphine than oxycodone. (2) Palliative care encounter: Jaky consistently says that she would like focus of her care to be comfort. She would have therapy initially at SNF for skilled care but could transition to hospice after that. She would prefer not to return to hospital. We discussed her high flow O2 needs and that if focus is comfort, O2 flow can be titrated for her comfort rather than maintaining a specific saturation level. We can also use roxanol to relieve air hunger. She is agreeable to this. She had been working on POA for her healthcare decisions prior to admission. She tells me that she would want her son, Eduardo Williamson, to be her surrogate decision maker. I spoke with Eduardo on the phone again today. He is agreeable to this and supports her decision for comfort directed care. He does very much want her to continue duloxetine as it has seemed to help her pain. I contacted Bernadette Olivera who will meet with Jaky to complete POA documentation. (3) Acute on chronic respiratory failure with hypoxia and hypercapnia: Now on 6L. Admission and Anticipated Discharge Date Admission Date: October 13, 2020 Subjective Jaky reports some improvement in the neuropathic pain in her buttocks. She does get relief with IV morphine but has not noticed significant relief with oral oxycodone. Review of Systems Review of Systems: [place] Symptom Assessment Scale Pain 2/3 Dyspnea 1/3 Nausea 0/3 Anxiety 1/3 Fatigue 2/3 Drowsiness 0/3 Palliative Performance Score 30% Physical Exam Constitutional: no acute distress Eyes: visual impairment ENMT: Mouth: oral mucous membranes not dry Respiratory: no labored breathing 6L O2 NC Cardiovascular: Extremities: no edema Gastrointestinal (Abdomen): Inspection/Auscultation: + significant pannus Musculoskeletal: Extremities: + muscle atrophy Neurologic: awake; not confused Results & Data ([facility]) Vital Signs (Past 12 Hours) Vital Signs Temp Pulse Pulse Resp BP Pulse Ox 11/05/20 10:58 97.5 F L 71 18 120/58 L 92 11/05/20 07:13 98.1 F 67 18 124/64 93 11/05/20 07:00 66 11/05/20 04:40 66 11/05/20 03:00 98.2 F 66 20 139/63 93 PG Care Time/CCT Total # of Minutes Spent Total Time Spent with Patient: Total time spent is greater than 50% in coordination of care (as documented) at patient's floor/unit and/or counseling patient: total time spent 45 minutes with more than 50% of time spent on goals of care, symptom management, family education and support, surrogate decision maker. Coding Level of Care Code 10323 Subseq Hosp Care Lvl 3 Diagnoses Buttock pain M79.18 Palliative care encounter Z51.5 Acute on chronic respiratory failure with hypoxia and hypercapnia J96.21; J96.22 Time Spent (min) 45
[2020-11-05] MEDS: MoRPHine SULFATE 5 MG/0.25 ML UDP PO PRN ×2 (12:49→21:20)
[2020-11-05] MEDS ORDERED: IPRATROPIUM BROMIDE NEB SOLN 0.02% 2.5 ML VIAL INH PRN (14:07)
[2020-11-05] MEDS ORDERED: LEVALBUTEROL 1.25MG/0.5ML NEB INH PRN (14:07)
[2020-11-05] MEDS: ONDANSETRON 2 MG OD TAB PO PRN (15:01)
--- NOTE | 2020-11-05 18:01 | Hospitalist Progress Note ---
Date of Service November 05, 2020 Assessment & Plan (1) Acute on chronic respiratory failure with hypoxia and hypercapnia: Aspiration pneumonia -CT chest showed multifocal airspace consolidation is seen throughout both lungs. The appearance is typical for pneumonia/aspiration pneumonitis. Small to moderate pleural effusions. -Patient received several courses of IV antibiotics -Continue IV meropenem, doxycycline -Repeat CXR showed improvement of opacity within the right upper lung and left lower lung. -Appreciate pulmonary input Continue supplemental oxygen Video swallow showed no aspiration palliative care on board for goal of care Given possible reaction to daptomycin, prednisone continue Appreciate ID input Still requiring significant supplemental oxygen to maintain saturation (2) COPD (chronic obstructive pulmonary disease): - cont.medications as above/ per pulmonary (3) Acute on chronic diastolic CHF (congestive heart failure): (4) Elevated troponin: (5) Congestive heart failure: Acute on chronic diastolic heart failure Acute on chronic respiratory failure with hypoxia Chronic oxygen dependency: On 2 to 3 L of nasal cannula at baseline -Chest x-ray showed pulmonary vascular congestion and some right upper lobe airspace opacities. -ProBNP of 11,000 -ECHO showed EF 60 to 65%. No change from prior echo. Grade 2 diastolic dysfunction. Moderate aortic stenosis with mild aortic regurgitation. -Appreciate cardiology input Continue IV diuretics Monitor I's and O's, daily weight Plan to discharge on p.o. diuretics. Palliative care following Goal is comfort as per patient (6) GERD (gastroesophageal reflux disease): (7) Anemia: GI bleed H. pylori Acute on chronic blood loss anemia S/P 2 units PRBCs Evaluated by GI at [facility] [place] she underwent EGD (09/22/20), which showed gastritis and small gastric ulcer with no active bleeding. She was found to have H. pylori, and was treated. She finished treatment on October 07 Needs follow-up EGD in 8 weeks to assess ulcer healing (w/ [place] [facility]) Appreciate [facility] Input Continue PPI Monitor CBC (8) Right femoral fracture: As per Prior Hospitalist At [place] underwent right femur removal of hardware. Revision ORIF of right femur. Wound debridement and closure. Placement of antibiotic delivery device. On September 24, 2020, by . Per hospitalist discharge summary, patient was discharged to [facility] -Intraoperative cultures grew 1+ E. faecium and few Staph aureus resistant to oxacillin. Ortho ID was following and recommended daptomycin 900 mg IV daily from September 25 to November 05, 2020. With follow-up CPK weekly, weightbearing of the right lower extremity as tolerated. PICC line was placed for 6 weeks of antibiotics. Following 6 weeks of IV antibiotics, plan will be to indefinitely suppressed with doxycycline monohydrate 100 mg p.o. twice daily due to the presence of extensive hardware in the limb. Lab results to be faxed to ID office at , outpatient follow-up with Ortho ID (Daptomycin dose was confirmed between Ortho ID in [place] and pharmacist at [facility]) -DVT prophylaxis achieved with Lovenox 40 twice daily for 3 weeks, end date October 14 -Per discharge summary, patient supposed to follow-up with orthopedics, Dr. 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 (10) Weakness: (11) Depression: (12) Anxiety: Continue current medication Started on duloxetine Palliative care following (13) History of pulmonary embolism: (14) CKD (chronic kidney disease) stage 3, GFR 30-59 ml/min: BLANCO on CKD 3 Possible related to contrast and Lasix CT abd/pelvis showed no hydronephrosis Monitor renal function (15) Hypertension: (16) Hyperlipidemia: Continue home medications (17) Chronic indwelling Gonzalez catheter: CODE STATUS DNI DNR Disposition Plan to discharge to SNF as able, eventually transition to hospice Palliative care on board Goal is comfort as per patient Admission and Anticipated Discharge Date Admission Date: October 13, 2020 Subjective Patient is seen and examined at bedside States feeling better today Offers no new complaints Denies chest pain, shortness of breath, dizziness, nausea, abdominal pain Requiring 6 to 7 L of supplemental oxygen to maintain saturations Chest x-ray today showed improving pneumonia Review of Systems Review of Systems: All systems reviewed & are unremarkable except as noted in HPI & below Physical Exam Physical Exam: Physical Exam: Vitals signs as noted above General Appearance:Moderately built and nourished, no apparent distress Head: normocephalic, Atraumatic Eyes: normal inspection, EOMI Neck: supple, Trachea midline Respiratory/Chest: Decreased breath sounds, CTA Cardiovascular: S1, S2, No murmur Abdomen/GI:Soft, Non tender, Bowel sounds present Extremities/Musculoskeletal:normal inspection, 1+ B/L LE edema Neurologic/Psych:AAOX3, grossly no focal neurological deficits Skin: normal color, warm, R knee--healed surgical scars Results & Data Results & Data ([facility]) Vital Signs (Past 12 Hours) Vital Signs Temp Pulse Pulse Resp BP Pulse Ox 11/05/20 16:00 75 11/05/20 15:00 36.6 C 68 18 113/61 91 11/05/20 10:58 36.4 C L 71 18 120/58 L 92 11/05/20 07:13 36.7 C 67 18 124/64 93 11/05/20 07:00 66 Laboratory Results Short CBC 11/05/20 Range/Units 05:35 WBC 7.12 (4.8-10.8) K/uL Hgb 9.7 L (12.0-16.0) g/dL Hct 31.0 L (37-47) % Plt Count 255 (130-400) K/uL BMP 11/05/20 05:35 Sodium 133 L Potassium 4.8 Chloride 95 L Carbon Dioxide 35 H BUN 57 H Creatinine 0.94 Glucose 89 Calcium 9.6 (1) COPD (chronic obstructive pulmonary disease) COPD type: unspecified COPD Qualified Code(s): J44.9 - Chronic obstructive pulmonary disease, unspecified (2) Congestive heart failure Heart failure chronicity: acute Heart failure type: unspecified Qualified Code(s): I50.9 - Heart failure, unspecified (3) Anemia Anemia type: unspecified type Qualified Code(s): D64.9 - Anemia, unspecified
[2020-11-05] MEDS: AMITRIPTYLINE HCL 25 MG TAB PO SCH (21:06)
[2020-11-05] MEDS: ATORVASTATIN 20 MG TAB PO SCH (21:07)
[2020-11-05] MEDS: MONTELUKAST SODIUM 10 MG TABLET PO SCH (21:11)
[2020-11-05] MEDS: traZODone HCL 50 MG TAB PO SCH (21:19)
[2020-11-06] MEDS: MEROPENEM 500 MG in SYRINGE 0 ML IV SCH ×4 (03:26→20:20)
[2020-11-06] MEDS: MoRPHine SULFATE 2 MG/ML CARP IV PRN (03:29)
[2020-11-06] MEDS: DOXYCYCLINE HYCLATE 100 MG in DEXTROSE 5% 100 ML IV SCH ×2 (06:02→20:11)
[2020-11-06] MEDS: LORazepam 0.5 MG TAB PO PRN ×2 (06:05→15:56)
[2020-11-06 06:35] LABS: Hematocrit (blood only) 29.9 % (37-47); Hemoglobin 9.5 g/dL (12.0-16.0); Mean Corpuscular Hemoglobin 29.1 pg (25-34); Mean Corpuscular Hgb Conc 31.8 g/dL (32-36); Mean Corpuscular Volume 91.7 fL (80-100); Mean Platelet Volume 10.3 fL (7.4-10.4); Platelet Count 267 K/uL (130-400); RDW Coefficient of Variation 15.7 % (11.5-14.5); RDW Standard Deviation 53.1 fL (36.4-46.3); Red Blood Count 3.26 M/uL (4.2-5.4); White Blood Count 7.64 K/uL (4.8-10.8)
[2020-11-06 07:11] LABS: BUN Creatinine Ratio 72.9 (10-20); Creatinine Clr Calc Pharmacy 69.2 ml/min; Est GFR (African American) 76.1 ml/min; Est GFR (Non-African American) 65.6 ml/min; Magnesium 2.4 mg/dl (1.8-2.4)
[2020-11-06] MEDS: lisinopril 5 MG TAB PO SCH (08:15)
[2020-11-06] MEDS: PREGABALIN 100 MG CAP PO SCH ×2 (08:15→20:41)
[2020-11-06] MEDS: predniSONE 20 MG TAB PO SCH (08:15)
[2020-11-06] MEDS: DULoxetine HCL 20 MG CAP PO SCH (08:15)
[2020-11-06] MEDS: METOPROLOL SUCC 25MG EXT REL TAB PO SCH (08:16)
[2020-11-06] MEDS: CHOLECALCIFEROL 1,000 UNITS 25 MCG TAB PO SCH (08:16)
[2020-11-06] MEDS: MULTIVITAMIN TAB PO SCH (08:17)
[2020-11-06] MEDS: guaiFENesin 600 MG TABCR PO SCH ×2 (08:17→20:19)
[2020-11-06] MEDS: ADVANCED PROBIOTIC 1250 MG CAPSULE PO SCH (08:17)
[2020-11-06] MEDS: FERROUS SULFATE 325 MG TAB PO SCH (08:17)
[2020-11-06] MEDS: FLUTICASONE/VILANTEROL 100/25MCG 14 PUFFS/INHALER INH SCH (08:18)
[2020-11-06] MEDS: PANTOprazole 40 MG in SYRINGE 0 ML IV SCH ×2 (08:19→20:21)
[2020-11-06] MEDS: UMECLIDINIUM BROMIDE 62.5MCG/BLISTER 7 PUFFS/INHALER INH SCH (08:19)
[2020-11-06] MEDS: MICONAZOLE NITRATE POWDER 43 GM EXT SCH ×2 (08:19→20:20)
[2020-11-06] MEDS: FUROSEMIDE 20 MG in SYRINGE 0 ML IV SCH ×2 (08:20→20:17)
[2020-11-06] MEDS: LIDOCAINE 5% 1 PATCH TD SCH (08:21)
[2020-11-06] MEDS: BENZONATATE 100 MG CAPSULE PO SCH ×3 (08:22→20:17)
[2020-11-06] MEDS: MoRPHine SULFATE 5 MG/0.25 ML UDP PO PRN ×3 (08:48→20:24)
[2020-11-06 12:10] LABS: Potassium 4.1 mmol/L (3.5-5.1)
[2020-11-06] MEDS ORDERED: SIMETHICONE 80 MG CHEW PO PRN (17:00)
--- NOTE | 2020-11-06 17:00 | Palliative Care Progress Note ---
Date of Service November 06, 2020 Assessment & Plan (1) Buttock pain: Neuropathic. Continue current regimen which has been effective. Will add simethicone for gas pain (2) Palliative care encounter: Jaky has requested comfort directed care with plan for transfer to [facility]. POA documentation was completed yesterday. POLST completed today for comfort care, DNR/DNI, determine antibiotic use as needed, no artificial hydration or nutrition. Admission and Anticipated Discharge Date Admission Date: October 13, 2020 Subjective Jaky reports that morphine and barrier cream have been effective for her pain. She c/o gas pain today. She denies constipation or nausea. Review of Systems Review of Systems: [place] Symptom Assessment Scale Pain 1/3 Dyspnea 1/3 Nausea 0/3 Anxiety 1/3 Fatigue 2/3 Drowsiness 0/3 Palliative Performance Score 30% Physical Exam Constitutional: not ill appearing ENMT: Mouth: oral mucous membranes not dry Respiratory: normal respiratory effort; no labored breathing Gastrointestinal (Abdomen): Inspection/Auscultation: + significant pannus; abdomen not distended Musculoskeletal: Extremities: + muscle atrophy Neurologic: awake; not confused Results & Data ([facility]) Vital Signs (Past 12 Hours) Vital Signs Temp Pulse Resp BP Pulse Ox 11/06/20 15:17 98.1 F 63 20 115/64 93 11/06/20 12:52 94 11/06/20 11:44 98.4 F 59 L 20 132/61 97 11/06/20 08:15 75 11/06/20 07:00 98.2 F 5 L 20 112/62 97 PG Care Time/CCT Total # of Minutes Spent Total Time Spent with Patient: Total time spent is greater than 50% in coordination of care (as documented) at patient's floor/unit and/or counseling patient: Coding Level of Care Code 64638 Subseq Hosp Care Lvl 2 Diagnoses Buttock pain M79.18 Palliative care encounter Z51.5
--- NOTE | 2020-11-06 18:10 | Hospitalist Progress Note ---
Date of Service November 06, 2020 Assessment & Plan (1) Acute on chronic respiratory failure with hypoxia and hypercapnia: Aspiration pneumonia -CT chest showed multifocal airspace consolidation is seen throughout both lungs. The appearance is typical for pneumonia/aspiration pneumonitis. Small to moderate pleural effusions. -Patient received several courses of IV antibiotics -Continue IV meropenem, doxycycline -Repeat CXR showed improvement of opacity within the right upper lung and left lower lung. -Appreciate pulmonary input Continue supplemental oxygen Video swallow showed no aspiration palliative care on board for goal of care Given possible reaction to daptomycin, continue Prednisone Appreciate ID input Transition from high flow oxygen to nasal cannula as able Continue current medications (2) COPD (chronic obstructive pulmonary disease): Management as above (3) Acute on chronic diastolic CHF (congestive heart failure): (4) Elevated troponin: (5) Congestive heart failure: Acute on chronic diastolic heart failure Acute on chronic respiratory failure with hypoxia Chronic oxygen dependency: On 2 to 3 L of nasal cannula at baseline -Chest x-ray showed pulmonary vascular congestion and some right upper lobe airspace opacities. -ProBNP of 11,000 -ECHO showed EF 60 to 65%. No change from prior echo. Grade 2 diastolic dysfunction. Moderate aortic stenosis with mild aortic regurgitation. -Appreciate cardiology input Continue IV diuretics Monitor I's and O's, daily weight Plan to discharge on p.o. diuretics. Palliative care following Goal is comfort as per patient (6) GERD (gastroesophageal reflux disease): (7) Anemia: GI bleed H. pylori Acute on chronic blood loss anemia S/P 2 units PRBCs Evaluated by GI at [facility] [place] she underwent EGD (09/22/20), which showed gastritis and small gastric ulcer with no active bleeding. She was found to have H. pylori, and was treated. She finished treatment on October 07 Needs follow-up EGD in 8 weeks to assess ulcer healing (w/ [place] [facility]) Appreciate [facility] Input Continue PPI Monitor CBC (8) Right femoral fracture: As per Prior Hospitalist At [place] underwent right femur removal of hardware. Revision ORIF of right femur. Wound debridement and closure. Placement of antibiotic delivery device. On September 24, 2020, by . Per hospitalist discharge summary, patient was discharged to [facility] -Intraoperative cultures grew 1+ E. faecium and few Staph aureus resistant to oxacillin. Ortho ID was following and recommended daptomycin 900 mg IV daily from September 25 to November 05, 2020. With follow-up CPK weekly, weightbearing of the right lower extremity as tolerated. PICC line was placed for 6 weeks of antibiotics. Following 6 weeks of IV antibiotics, plan will be to indefinitely suppressed with doxycycline monohydrate 100 mg p.o. twice daily due to the presence of extensive hardware in the limb. Lab results to be faxed to ID office at , outpatient follow-up with Ortho ID (Daptomycin dose was confirmed between Ortho ID in [place] and pharmacist at [facility]) -DVT prophylaxis achieved with Lovenox 40 twice daily for 3 weeks, end date October 14 -Per discharge summary, patient supposed to follow-up with orthopedics, Dr. 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 (10) Weakness: (11) Depression: (12) Anxiety: Continue current medication Started on duloxetine Palliative care following (13) History of pulmonary embolism: (14) CKD (chronic kidney disease) stage 3, GFR 30-59 ml/min: BLANCO on CKD 3 Possible related to contrast and Lasix CT abd/pelvis showed no hydronephrosis Monitor renal function Cr back to baseline (15) Hypertension: (16) Hyperlipidemia: Continue home medications (17) Chronic indwelling Gonzalez catheter: CODE STATUS DNI DNR Disposition Plan to discharge to SNF, eventually transition to hospice likely tomorrow Palliative care on board Goal is comfort as per patient Admission and Anticipated Discharge Date Admission Date: October 13, 2020 Subjective Patient is seen and examined at bedside States having chronic back pain No other new complaints Transition from high flow oxygen to nasal cannula Denies chest pain, shortness of breath, dizziness, nausea, abdominal pain Review of Systems Review of Systems: All systems reviewed & are unremarkable except as noted in HPI & below Physical Exam Physical Exam: Physical Exam: Vitals signs as noted above General Appearance:Moderately built and nourished, no apparent distress Head: normocephalic, Atraumatic Eyes: normal inspection, EOMI Neck: supple, Trachea midline Respiratory/Chest: Decreased breath sounds, CTA Cardiovascular: S1, S2, No murmur Abdomen/GI:Soft, Non tender, Bowel sounds present Extremities/Musculoskeletal:normal inspection, 1+ B/L LE edema Neurologic/Psych:AAOX3, grossly no focal neurological deficits Skin: normal color, warm, R knee--healed surgical scars Results & Data Results & Data ([facility]) Vital Signs (Past 12 Hours) Vital Signs Temp Pulse Resp BP Pulse Ox 11/06/20 15:17 36.7 C 63 20 115/64 93 11/06/20 12:52 94 11/06/20 11:44 36.9 C 59 L 20 132/61 97 11/06/20 08:15 75 11/06/20 07:00 36.8 C 5 L 20 112/62 97 Laboratory Results Short CBC 11/06/20 Range/Units 05:52 WBC 7.64 (4.8-10.8) K/uL Hgb 9.5 L (12.0-16.0) g/dL Hct 29.9 L (37-47) % Plt Count 267 (130-400) K/uL BMP 11/06/20 05:52 Sodium 142 D Potassium 4.1 Chloride 108 H Carbon Dioxide 27 BUN 64 H Creatinine 0.88 Glucose 80 Calcium 10.0 Cardiac Enzymes 11/06/20 Range/Units 05:52 Total Creatine Kinase 19 L (26-192) U/L (1) COPD (chronic obstructive pulmonary disease) COPD type: unspecified COPD Qualified Code(s): J44.9 - Chronic obstructive pulmonary disease, unspecified (2) Congestive heart failure Heart failure chronicity: acute Heart failure type: unspecified Qualified Code(s): I50.9 - Heart failure, unspecified (3) Anemia Anemia type: unspecified type Qualified Code(s): D64.9 - Anemia, unspecified
[2020-11-06] MEDS: AMITRIPTYLINE HCL 25 MG TAB PO SCH (20:15)
[2020-11-06] MEDS: ATORVASTATIN 20 MG TAB PO SCH (20:16)
[2020-11-06] MEDS: MONTELUKAST SODIUM 10 MG TABLET PO SCH (20:21)
[2020-11-06] MEDS: traZODone HCL 50 MG TAB PO SCH (20:41)
[2020-11-07] MEDS: MEROPENEM 500 MG in SYRINGE 0 ML IV SCH ×2 (03:25→08:36)
[2020-11-07] MEDS: LORazepam 0.5 MG TAB PO PRN ×2 (03:25→11:55)
[2020-11-07 06:27] LABS: Hematocrit (blood only) 29.3 % (37-47); Hemoglobin 9.2 g/dL (12.0-16.0); Mean Corpuscular Hemoglobin 29.2 pg (25-34); Mean Corpuscular Hgb Conc 31.4 g/dL (32-36); Mean Platelet Volume 10.1 fL (7.4-10.4); Platelet Count 249 K/uL (130-400); RDW Coefficient of Variation 15.7 % (11.5-14.5); RDW Standard Deviation 53.7 fL (36.4-46.3); Red Blood Count 3.15 M/uL (4.2-5.4); White Blood Count 7.46 K/uL (4.8-10.8)
[2020-11-07 06:56] LABS: BUN Creatinine Ratio 80.2 (10-20); Calcium 9.7 mg/dl (8.5-10.1); Creatinine Clr Calc Pharmacy 75.6 ml/min; Est GFR (African American) 82.9 ml/min; Est GFR (Non-African American) 71.5 ml/min; Potassium 4.7 mmol/L (3.5-5.1)
[2020-11-07] MEDS: FLUTICASONE/VILANTEROL 100/25MCG 14 PUFFS/INHALER INH SCH (08:33)
[2020-11-07] MEDS: METOPROLOL SUCC 25MG EXT REL TAB PO SCH (08:33)
[2020-11-07] MEDS: UMECLIDINIUM BROMIDE 62.5MCG/BLISTER 7 PUFFS/INHALER INH SCH (08:33)
[2020-11-07] MEDS: predniSONE 20 MG TAB PO SCH (08:34)
[2020-11-07] MEDS: POLYETHYLENE (MIRALAX) 17 GM PACK PO PRN (08:34)
[2020-11-07] MEDS: lisinopril 5 MG TAB PO SCH (08:34)
[2020-11-07] MEDS: MULTIVITAMIN TAB PO SCH (08:34)
[2020-11-07] MEDS: DULoxetine HCL 20 MG CAP PO SCH (08:34)
[2020-11-07] MEDS: CHOLECALCIFEROL 1,000 UNITS 25 MCG TAB PO SCH (08:34)
[2020-11-07] MEDS: FERROUS SULFATE 325 MG TAB PO SCH (08:34)
[2020-11-07] MEDS: guaiFENesin 600 MG TABCR PO SCH ×2 (08:35→20:23)
[2020-11-07] MEDS: ADVANCED PROBIOTIC 1250 MG CAPSULE PO SCH (08:35)
[2020-11-07] MEDS: MICONAZOLE NITRATE POWDER 43 GM EXT SCH ×2 (08:36→20:25)
[2020-11-07] MEDS: BENZONATATE 100 MG CAPSULE PO SCH ×3 (08:36→20:24)
[2020-11-07] MEDS: PREGABALIN 100 MG CAP PO SCH ×2 (08:36→20:22)
[2020-11-07] MEDS: MoRPHine SULFATE 5 MG/0.25 ML UDP PO PRN ×3 (08:36→20:22)
[2020-11-07] MEDS: LIDOCAINE 5% 1 PATCH TD SCH (08:36)
[2020-11-07] MEDS: FUROSEMIDE 20 MG in SYRINGE 0 ML IV SCH ×2 (09:17→20:21)
[2020-11-07] MEDS: PANTOprazole 40 MG in SYRINGE 0 ML IV SCH ×2 (09:17→20:21)
[2020-11-07] MEDS: ONDANSETRON 2 MG OD TAB PO PRN (11:55)
[2020-11-07] MEDS ORDERED: bisacodyL 10 MG SUPP PR ONE (12:28)
[2020-11-07] MEDS ORDERED: POLYETHYLENE (MIRALAX) 17 GM PACK PO PRN (16:04)
--- NOTE | 2020-11-07 16:07 | Hospitalist Progress Note ---
Date of Service November 07, 2020 Assessment & Plan (1) Acute on chronic respiratory failure with hypoxia and hypercapnia: Aspiration pneumonia -CT chest showed multifocal airspace consolidation is seen throughout both lungs. The appearance is typical for pneumonia/aspiration pneumonitis. Small to moderate pleural effusions. -Patient received several courses of IV antibiotics -Continue IV meropenem, doxycycline -Repeat CXR showed improvement of opacity within the right upper lung and left lower lung. -Appreciate pulmonary input Continue supplemental oxygen Video swallow showed no aspiration palliative care on board for goal of care Given possible reaction to daptomycin, continue Prednisone Appreciate ID input Titrate down prednisone as able Saturating low 90s on 4 L of supplemental oxygen (2) COPD (chronic obstructive pulmonary disease): Management as above (3) Acute on chronic diastolic CHF (congestive heart failure): (4) Elevated troponin: (5) Congestive heart failure: Acute on chronic diastolic heart failure Acute on chronic respiratory failure with hypoxia Chronic oxygen dependency: On 2 to 3 L of nasal cannula at baseline -Chest x-ray showed pulmonary vascular congestion and some right upper lobe airspace opacities. -ProBNP of 11,000 -ECHO showed EF 60 to 65%. No change from prior echo. Grade 2 diastolic dysfunction. Moderate aortic stenosis with mild aortic regurgitation. -Appreciate cardiology input Continue IV diuretics Monitor I's and O's, daily weight Plan to discharge on p.o. diuretics. Palliative care following Goal is comfort as per patient (6) GERD (gastroesophageal reflux disease): (7) Anemia: GI bleed H. pylori Acute on chronic blood loss anemia S/P 2 units PRBCs Evaluated by GI at [facility] [place] she underwent EGD (09/22/20), which showed gastritis and small gastric ulcer with no active bleeding. She was found to have H. pylori, and was treated. She finished treatment on October 07 Needs follow-up EGD in 8 weeks to assess ulcer healing (w/ [place] [facility]) Appreciate [facility] Input Continue PPI Monitor CBC (8) Right femoral fracture: As per Prior Hospitalist At [place] underwent right femur removal of hardware. Revision ORIF of right femur. Wound debridement and closure. Placement of antibiotic delivery device. On September 24, 2020, by . Per hospitalist discharge summary, patient was discharged to [facility] -Intraoperative cultures grew 1+ E. faecium and few Staph aureus resistant to oxacillin. Ortho ID was following and recommended daptomycin 900 mg IV daily from September 25 to November 05, 2020. With follow-up CPK weekly, weightbearing of the right lower extremity as tolerated. PICC line was placed for 6 weeks of a ntibiotics. Following 6 weeks of IV antibiotics, plan will be to indefinitely suppressed with doxycycline monohydrate 100 mg p.o. twice daily due to the presence of extensive hardware in the limb. Lab results to be faxed to ID office at , outpatient follow-up with Ortho ID (Daptomycin dose was confirmed between Ortho ID in [place] and pharmacist at [facility]) -DVT prophylaxis achieved with Lovenox 40 twice daily for 3 weeks, end date October 14 -Per discharge summary, patient supposed to follow-up with orthopedics, Dr. 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 Constipation started on Bowel regimen (10) Weakness: (11) Depression: (12) Anxiety: Continue current medication Started on duloxetine Palliative care following (13) History of pulmonary embolism: (14) CKD (chronic kidney disease) stage 3, GFR 30-59 ml/min: BLANCO on CKD 3 Possible related to contrast and Lasix CT abd/pelvis showed no hydronephrosis Monitor renal function Cr back to baseline (15) Hypertension: (16) Hyperlipidemia: Continue home medications (17) Chronic indwelling Gonzalez catheter: CODE STATUS DNI DNR Disposition Plan to discharge to SNF when arranged Palliative care on board Goal is comfort as per patient Admission and Anticipated Discharge Date Admission Date: October 13, 2020 Subjective Patient is seen and examined at bedside States having nausea associated with some constipation today Minimal cough Denies chest pain, shortness of breath, dizziness, nausea, abdominal pain Saturating low 90s on supplemental oxygen Review of Systems Review of Systems: All systems reviewed & are unremarkable except as noted in HPI & below Physical Exam Physical Exam: Physical Exam: Vitals signs as noted above General Appearance:Moderately built and nourished, no apparent distress Head: normocephalic, Atraumatic Eyes: normal inspection, EOMI Neck: supple, Trachea midline Respiratory/Chest: Decreased breath sounds, CTA Cardiovascular: S1, S2, No murmur Abdomen/GI:Soft, Non tender, Bowel sounds present Extremities/Musculoskeletal:normal inspection, 1+ B/L LE edema Neurologic/Psych:AAOX3, grossly no focal neurological deficits Skin: normal color, warm, R knee--healed surgical scars Results & Data Results & Data ([facility]) Vital Signs (Past 12 Hours) Vital Signs Temp Pulse Resp BP Pulse Ox 11/07/20 15:26 36.9 C 63 20 124/62 92 11/07/20 11:43 36.7 C 78 20 119/60 11/07/20 07:46 36.6 C 63 20 115/64 94 Laboratory Results Short CBC 11/07/20 Range/Units 06:03 WBC 7.46 (4.8-10.8) K/uL Hgb 9.2 L (12.0-16.0) g/dL Hct 29.3 L (37-47) % Plt Count 249 (130-400) K/uL BMP 11/07/20 06:03 Sodium 134 L D Potassium 4.7 Chloride 96 L Carbon Dioxide 35 H BUN 65 H Creatinine 0.82 Glucose 84 Calcium 9.7 (1) COPD (chronic obstructive pulmonary disease) COPD type: unspecified COPD Qualified Code(s): J44.9 - Chronic obstructive pulmonary disease, unspecified (2) Congestive heart failure Heart failure chronicity: acute Heart failure type: unspecified Qualified Code(s): I50.9 - Heart failure, unspecified (3) Anemia Anemia type: unspecified type Qualified Code(s): D64.9 - Anemia, unspecified
[2020-11-07] MEDS: DOCUSATE SODIUM/SENNA 50/8.6MG TAB PO SCH (20:22)
[2020-11-07] MEDS: traZODone HCL 50 MG TAB PO SCH (20:22)
[2020-11-07] MEDS: AMITRIPTYLINE HCL 25 MG TAB PO SCH (20:23)
[2020-11-07] MEDS: ATORVASTATIN 20 MG TAB PO SCH (20:24)
[2020-11-07] MEDS: MONTELUKAST SODIUM 10 MG TABLET PO SCH (20:24)
[2020-11-08] MEDS: LORazepam 0.5 MG TAB PO PRN ×2 (05:43→11:05)
[2020-11-08] MEDS: MoRPHine SULFATE 5 MG/0.25 ML UDP PO PRN ×3 (08:32→17:30)
[2020-11-08] MEDS: FUROSEMIDE 20 MG in SYRINGE 0 ML IV SCH (08:32)
[2020-11-08] MEDS: PANTOprazole 40 MG in SYRINGE 0 ML IV SCH (08:32)
[2020-11-08] MEDS: ADVANCED PROBIOTIC 1250 MG CAPSULE PO SCH (08:32)
[2020-11-08] MEDS: METOPROLOL SUCC 25MG EXT REL TAB PO SCH (08:33)
[2020-11-08] MEDS: guaiFENesin 600 MG TABCR PO SCH (08:33)
[2020-11-08] MEDS: FERROUS SULFATE 325 MG TAB PO SCH (08:33)
[2020-11-08] MEDS: MULTIVITAMIN TAB PO SCH (08:33)
[2020-11-08] MEDS: lisinopril 5 MG TAB PO SCH (08:33)
[2020-11-08] MEDS: DULoxetine HCL 20 MG CAP PO SCH (08:34)
[2020-11-08] MEDS: CHOLECALCIFEROL 1,000 UNITS 25 MCG TAB PO SCH (08:34)
[2020-11-08] MEDS: DOCUSATE SODIUM/SENNA 50/8.6MG TAB PO SCH (08:36)
[2020-11-08] MEDS: UMECLIDINIUM BROMIDE 62.5MCG/BLISTER 7 PUFFS/INHALER INH SCH (08:37)
[2020-11-08] MEDS: FLUTICASONE/VILANTEROL 100/25MCG 14 PUFFS/INHALER INH SCH (08:37)
[2020-11-08] MEDS: BENZONATATE 100 MG CAPSULE PO SCH ×2 (08:38→15:34)
[2020-11-08] MEDS: MICONAZOLE NITRATE POWDER 43 GM EXT SCH (08:39)
[2020-11-08] MEDS: PREGABALIN 100 MG CAP PO SCH (08:46)
[2020-11-08] MEDS ORDERED: predniSONE 20 MG TAB PO SCH (09:00)
[2020-11-08] MEDS: LIDOCAINE 5% 1 PATCH TD SCH (10:09)
--- NOTE | 2020-11-08 12:07 | Hospitalist Progress Note ---
Date of Service November 08, 2020 Assessment & Plan (1) Acute on chronic respiratory failure with hypoxia and hypercapnia: Aspiration pneumonia -CT chest showed multifocal airspace consolidation is seen throughout both lungs. The appearance is typical for pneumonia/aspiration pneumonitis. Small to moderate pleural effusions. -Patient received several courses of IV antibiotics -Repeat CXR showed improvement of opacity within the right upper lung and left lower lung. -Appreciate pulmonary input Continue supplemental oxygen Video swallow showed no aspiration palliative care on board for goal of care Appreciate ID input Titrate down prednisone as able Saturating low 90s on 4 L of supplemental oxygen Completed IV meropenem, doxycycline course (2) COPD (chronic obstructive pulmonary disease): Management as above (3) Acute on chronic diastolic CHF (congestive heart failure): (4) Elevated troponin: (5) Congestive heart failure: Acute on chronic diastolic heart failure Acute on chronic respiratory failure with hypoxia Chronic oxygen dependency: On 2 to 3 L of nasal cannula at baseline -Chest x-ray showed pulmonary vascular congestion and some right upper lobe airspace opacities. -ProBNP of 11,000 -ECHO showed EF 60 to 65%. No change from prior echo. Grade 2 diastolic dysfunction. Moderate aortic stenosis with mild aortic regurgitation. -Appreciate cardiology input Received IV diuretics Monitor I's and O's, daily weight Plan to discharge on p.o. diuretics. Palliative care following Goal is comfort as per patient Transition to p.o. diuretics upon discharge (6) GERD (gastroesophageal reflux disease): (7) Anemia: GI bleed H. pylori Acute on chronic blood loss anemia S/P 2 units PRBCs Evaluated by GI at [facility] she underwent EGD (09/22/20), which showed gastritis and small gastric ulcer with no active bleeding. She was found to have H. pylori, and was treated. She finished treatment on October 07 Needs follow-up EGD in 8 weeks to assess ulcer healing (w/ [facility] [facility]) Appreciate [facility] Input Continue PPI Monitor CBC (8) Right femoral fracture: As per Prior Hospitalist At [place] underwent right femur removal of hardware. Revision ORIF of right femur. Wound debridement and closure. Placement of antibiotic delivery device. On September 24, 2020, by . Per hospitalist discharge summary, patient was discharged to [facility] -Intraoperative cultures grew 1+ E. faecium and few Staph aureus resistant to oxacillin. Ortho ID was following and recommended daptomycin 900 mg IV daily from September 25 to November 05, 2020. With follow-up CPK weekly, weightbearing of the right lower extremity as tolerated. PICC line was placed for 6 weeks of antibiotics. Following 6 weeks of IV antibiotics, plan will be to indefinitely suppressed with doxycycline monohydrate 100 mg p.o. twice daily due to the presence of extensive hardware in the limb. Lab results to be faxed to ID office at , outpatient follow-up with Ortho ID (Daptomycin dose was confirmed between Ortho ID in [place] and pharmacist at [facility]) -DVT prophylaxis achieved with Lovenox 40 twice daily for 3 weeks, end date October 14 -Per discharge summary, patient supposed to follow-up with orthopedics, Dr. 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 Constipation Continue Bowel regimen Enema PRN (10) Weakness: (11) Depression: (12) Anxiety: Continue current medication Started on duloxetine Palliative care following (13) History of pulmonary embolism: (14) CKD (chronic kidney disease) stage 3, GFR 30-59 ml/min: BLANCO on CKD 3 Possible related to contrast and Lasix CT abd/pelvis showed no hydronephrosis Monitor renal function Cr back to baseline (15) Hypertension: (16) Hyperlipidemia: Continue home medications (17) Chronic indwelling Gonzalez catheter: CODE STATUS DNI DNR Disposition Plan to discharge to SNF when arranged Palliative care on board Goal is comfort as per patient Admission and Anticipated Discharge Date Admission Date: October 13, 2020 Subjective Patient is seen and examined at bedside Reports chronic Back pain Still constipated Denies chest pain, shortness of breath, dizziness, nausea, abdominal pain No other complaints Review of Systems Review of Systems: All systems reviewed & are unremarkable except as noted in HPI & below Physical Exam Physical Exam: Physical Exam: Vitals signs as noted above General Appearance:Moderately built and nourished, no apparent distress Head: normocephalic, Atraumatic Eyes: normal inspection, EOMI Neck: supple, Trachea midline Respiratory/Chest: Decreased breath sounds, CTA Cardiovascular: S1, S2, No murmur Abdomen/GI:Soft, Non tender, Bowel sounds present Extremities/Musculoskeletal:normal inspection, 1+ B/L LE edema Neurologic/Psych:AAOX3, grossly no focal neurological deficits Skin: normal color, warm, R knee--healed surgical scars Results & Data Results & Data ([facility]) Vital Signs (Past 12 Hours) Vital Signs Temp Pulse Pulse Resp BP Pulse Ox 11/08/20 09:02 36.3 C L 79 20 110/59 L 90 11/08/20 08:00 62 11/08/20 02:58 36.8 C 58 L 19 110/62 92 11/08/20 01:17 58 L (1) COPD (chronic obstructive pulmonary disease) COPD type: unspecified COPD Qualified Code(s): J44.9 - Chronic obstructive pulmonary disease, unspecified (2) Congestive heart failure Heart failure chronicity: acute Heart failure type: unspecified Qualified Code(s): I50.9 - Heart failure, unspecified (3) Anemia Anemia type: unspecified type Qualified Code(s): D64.9 - Anemia, unspecified
--- NOTE | 2020-11-08 12:25 | Discharge Summary ---
Date of Service November 08, 2020 Admission HPI Per Admitting Provider 70 yo female with PMH of Acute on Chronic Diastolic CHF, Anemia, Jerks, CAUTI, RLE Cellulitis, Myoclonus, Sepsis, UTIs, Obesity, COPD, GERD, Anxiety, PE, Lumbar Radiculopathy, HLD, Depression, CKD III, HTN, Bronchitis, Sustained Vt, and an NSTEMI who was rehabbing after a femur fracture repair and after having a right hip wound infection. She has been there since September 30. She developed chest pain this morning. Her EKG looked okay but her hemoglobin was 6.9. A guaiac test of her stool this morning showed guaiac positive. She was sent here for further evaluation. The patient complains of some generalized weakness. She c/o 2-3/10 chest pain wo radiation, no Diaphoresis, and no SOB. The pain was Sub-Sternal. Admission Exam Per Admitting Provider Physical Exam Physical Exam: Physical Exam Gen-AAO x 3, NAD, Afebrile, Audible wheeze, Obese Head-NCAT, EOMI, PERRLA, Anicteric Sclera, No Posterior Pharyngeal Erythema Neck-Supple, No JVD, No Thyromegaly, No Masses, No LAD, No Bruits Lungs-Clear to Auscultation Bilaterally, No Rales, No Rhonchi, No Wheezing, No Crepitus Chest-No S4, +S1, +S2, No S3, No Murmurs, No Rubs, No Gallops, No Ectopy Abdomen-Soft, Bowel Sounds Present, Non Tender, Non Distended, No Hepatomegaly, No Splenomegaly, No Palpable Masses, No Rebound, No Rigidity, No Guarding Musculoskeletal-RLE wound dressed, No CVAT Extremities-No Cyanosis, No Clubbing, No Edema Nuero-Cranial Nerves II-XII grossly intact, Motor WNL, DTRs WNL, Strength WNL, Non Focal Psych-Normal Mood Principal Diagnosis Aspiration pneumonia Acute on chronic diastolic heart failure Acute on chronic respiratory failure with hypoxia Anemia Right femoral fracture Constipation Acute kidney injury Discharge Data Allergies Allergy/AdvReac Type Severity Reaction Status Date / Time No Known Allergies Allergy Verified 10/13/20 10:10 Consultations 10/13/20 13:08 ED Decision to Admit Stat 10/13/20 14:06 Consult Cardiology Routine Consult Gastroenterology Routine 10/15/20 08:29 Consult Orthopedic Surgery Routine 10/15/20 08:32 Consult Pulmonology Routine 10/26/20 11:25 Consult Palliative Care Routine 10/30/20 09:11 Consult Pain Management Routine 10/30/20 15:57 Consult Infectious Diseases Routine Procedures Performed CT Chest: 1. Pulmonary emphysema 2. Persistent mild adenopathy, likely reactive 2. Persistent bilateral pleural effusions 4. Extensive right lung pulmonary consolidation, likely secondary to a pneumonia. There is mild improvement in the aeration of the right upper lobe anteriorly. 5. Slight progression in the left upper lobe and left lower lobe areas of atelectasis/consolidation 6. Multiple subcentimeter solid pulmonary nodules, similar to the prior study Venous Doppler: No DVT within the right or left lower extremity. Ordered Studies 10/15/20 08:38 CT chest diagnostic wo con Urgent 10/21/20 17:50 CT abd pelvis oral and IV con Routine 10/24/20 08:21 CT chest diagnostic wo con Urgent 10/25/20 05:36 US venous doppler LE BI Routine 10/27/20 15:19 FL video swallow Routine 10/30/20 15:56 CT chest diagnostic wo con Routine Hospital Course (1) Acute on chronic respiratory failure with hypoxia and hypercapnia: Aspiration pneumonia -CT chest showed multifocal airspace consolidation is seen throughout both lungs. The appearance is typical for pneumonia/aspiration pneumonitis. Small to moderate pleural effusions. -Patient received several courses of IV antibiotics -Repeat CXR showed improvement of opacity within the right upper lung and left lower lung. -Appreciate pulmonary input Continue supplemental oxygen Video swallow showed no aspiration palliative care on board for goal of care Appreciate ID input Titrate down prednisone as able Saturating low 90s on 4 L of supplemental oxygen Completed IV meropenem, doxycycline course (2) COPD (chronic obstructive pulmonary disease): Management as above (3) Acute on chronic diastolic CHF (congestive heart failure): (4) Elevated troponin: (5) Congestive heart failure: Acute on chronic diastolic heart failure Acute on chronic respiratory failure with hypoxia Chronic oxygen dependency: On 2 to 3 L of nasal cannula at baseline -Chest x-ray showed pulmonary vascular congestion and some right upper lobe airspace opacities. -ProBNP of 11,000 -ECHO showed EF 60 to 65%. No change from prior echo. Grade 2 diastolic dysfunction. Moderate aortic stenosis with mild aortic regurgitation. -Appreciate cardiology input Received IV diuretics Monitor I's and O's, daily weight Plan to discharge on p.o. diuretics. Palliative care following Goal is comfort as per patient Transition to p.o. diuretics upon discharge (6) GERD (gastroesophageal reflux disease): (7) Anemia: GI bleed H. pylori Acute on chronic blood loss anemia S/P 2 units PRBCs Evaluated by GI at [facility] she underwent EGD (09/22/20), which showed gastritis and small gastric ulcer with no active bleeding. She was found to have H. pylori, and was treated. She finished treatment on October 07 Needs follow-up EGD in 8 weeks to assess ulcer healing (w/ [place] [facility]) Appreciate [facility] Input Continue PPI Monitor CBC (8) Right femoral fracture: As per Prior Hospitalist At [place] underwent right femur removal of hardware. Revision ORIF of right femur. Wound debridement and closure. Placement of antibiotic delivery device. On September 24, 2020, by . Per hospitalist discharge summary, patient was discharged to [facility] -Intraoperative cultures grew 1+ E. faecium and few Staph aureus resistant to oxacillin. Ortho ID was following and recommended daptomycin 900 mg IV daily from September 25 to November 05, 2020. With follow-up CPK weekly, weightbearing of the right lower extremity as tolerated. PICC line was placed for 6 weeks of antibiotics. Following 6 weeks of IV antibiotics, plan will be to indefinitely suppressed with doxycycline monohydrate 100 mg p.o. twice daily due to the presence of extensive hardware in the limb. Lab results to be faxed to ID office at , outpatient follow-up with Ortho ID (Daptomycin dose was confirmed between Ortho ID in [place] and pharmacist at [facility]) -DVT prophylaxis achieved with Lovenox 40 twice daily for 3 weeks, end date October 14 -Per discharge summary, patient supposed to follow-up with orthopedics, Dr. 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 Constipation Continue Bowel regimen Enema PRN (10) Weakness: (11) Depression: (12) Anxiety: Continue current medication Started on duloxetine Palliative care following (13) History of pulmonary embolism: (14) CKD (chronic kidney disease) stage 3, GFR 30-59 ml/min: BLANCO on CKD 3 Possible related to contrast and Lasix CT abd/pelvis showed no hydronephrosis Monitor renal function Cr back to baseline (15) Hypertension: (16) Hyperlipidemia: Continue home medications (17) Chronic indwelling Gonzalez catheter: CODE STATUS DNI DNR Disposition SNF Palliative care on board Goal is comfort as per patient Plan is to transition to hospice eventually Total Time Total Time Spent Total Time Spent (In Minutes): 47 minutes Discharge Plan Discharge Items Patient Disposition: [facility] Reason For Visit: CHF, ANEMIA Discharge Diagnosis: Aspiration pneumonia Acute on chronic diastolic heart failure Acute on chronic respiratory failure with hypoxia Anemia Right femoral fracture Constipation Acute kidney injury Activity: Per Instructions section Exercise/Sports: Wait until after follow-up appointment Non-emergency contact: Primary Care Provider and Surgeon Call non-emergency contact if: you have any medication questions, your symptoms worsen, your pain is concerning for you and you have a fever Follow-up/Referrals: [facility] [Primary Care Provider] - Diet: Heart Healthy Diet Texture: Easy to Chew Addtl Attending Provider Instructions: Follow-up with your primary care physician in 1 week Follow-up with your orthopedic surgeon as previously recommended Follow-up with your power wheelchair mechanic as recommended. Seek immediate medical attention if your symptoms reoccur or worsen Please take all medications as instructed on discharge list below. Please call if you have any questions or problems. You can reach a [facility] hospitalist on duty at [facility] 24 hours a day by calling [phone] Call your Primary Care doctor if any of the following symptoms or problems start or get worse: * Shortness of breath or difficulty breathing * Wake up at night short of breath * Chest pain * Cough * Swelling of your hands, feet, or legs * More fatigued or tired with your normal activity * Palpitations - sudden fast heart beats WEIGHT * Weigh yourself every morning after using the bathroom. * Use the same scale. * Wear the same amount of clothing. * Write your weight down on a chart. * Call your Primary Care doctor if you gain more than 2-3 pounds in 1-2 days. MEDICATIONS * Use this discharge instruction sheet for medication instructions. * Take your medications at the time your doctor ordered. * Do not skip a dose of your medicines. * If you miss a dose of medicine, take it as soon as possible, but DO NOT DOUBLE A DOSE. * Read your medicine information when you get home. * Know all of the side effects of your medicine. If in doubt, ask your pharmacist * Call your Primary Care doctor's office if you have any side effects. * Be sure all of your doctors know what medicine and herbs you take (including cold, flu, and herbal medicine). Take the following with you to your follow-up doctor appointments: * Weight Chart * Medication List * List of questions Do not drink excessive alcohol, beer or wine. Addtl Logistics Solution Manager Provider Instructions: Orthopedics: *Weightbear as tolerated right leg with walker * Allowed for full range of motion right leg as tolerated. *Strengthening as tolerated right leg *PT/OT * Dressings to right hip as needed. *Has scheduled follow-up with Dr Kaba (orthopedics) and Radha Live PA-C (ID) at [facility] on 10-21 at 11:20am Pending Studies at Discharge: No Stand-Alone Forms: My [facility] Skilled Items Patient informed of condition?: Yes DNR: Yes Discharge Level of Care: Skilled Communicable Disease: No Discharge Prognosis: Stable Lines: None Urinary Catheter: Yes Medications and DC Order Prescriptions: New duloxetine 20 mg Capsule,Delayed Release(Dr/Ec) 20 mg PO QAM Qty: 30 RF: 0 prednisone 20 mg Tablet 20 mg PO QAM Qty: 3 RF: 0 doxycycline monohydrate 100 mg capsule 100 mg PO BID Qty: 60 RF: 0 Continued ascorbic acid (vitamin C) 500 mg tablet 500 mg PO BID RF: 0 guaifenesin 100 mg/5 mL liquid 100 mg PO Q4H PRN (Reason: Cough) RF: 0 lidocaine [Lidoderm] 5 % adhesive patch,medicated 1 patch topical DAILY RF: 0 metoprolol succinate [Toprol XL] 25 mg Tablet Extended Release 24 Hr 25 mg PO QAM RF: 0 aspirin 81 mg Tablet,Delayed Release (Dr/Ec) 81 mg PO QAM RF: 0 lorazepam [Ativan] 1 mg tablet 1 mg PO TID PRN (Reason: Anxiety) RF: 0 trazodone 50 mg Tablet 50 mg PO HS RF: 0 montelukast [Singulair] 10 mg Tablet 10 mg PO HS RF: 0 ergocalciferol (vitamin D2) [Vitamin D2] 50,000 unit Capsule 50,000 unit PO WK RF: 0 multivitamin Tablet 1 tab PO QAM RF: 0 ondansetron HCl 4 mg tablet 4 mg PO Q6H PRN (Reason: Nausea) RF: 0 Trelegy Ellipta 100-62.5-25 mcg Blister With Device 1 inh INHALATION QAM RF: 0 atorvastatin 20 mg Tablet 20 mg PO HS RF: 0 hydromorphone 2 mg Tablet 1 mg PO Q4H PRN (Reason: Pain) RF: 0 ferrous sulfate 325 mg (65 mg iron) Tablet 325 mg PO DAILY RF: 0 cholecalciferol (vitamin D3) [Vitamin D3] 125 mcg (5,000 unit) Tablet 125 mcg PO DAILY RF: 0 Narcan 4 mg/actuation [place],Non-Aerosol 0.1 mg INTRANASAL UD RF: 0 acetaminophen 325 mg Tablet 650 mg PO Q4H PRN (Reason: Pain) RF: 0 polyethylene glycol 3350 [Miralax] 17 gram Powder In Packet 17 g PO DAILY PRN (Reason: Constipation) RF: 0 sennosides-docusate sodium [Senokot-S] 8.6-50 mg Tablet 1 tab-cap PO DAILY PRN (Reason: Constipation) RF: 0 amitriptyline 25 mg Tablet 25 mg PO HS RF: 0 magnesium hydroxide [Milk of Magnesia] 400 mg/5 mL Suspension 30 ml PO DAILY PRN (Reason: Constipation) RF: 0 bisacodyl 10 mg Suppository 10 mg OK DAILY PRN (Reason: Constipation) RF: 0 Fleet Enema 19-7 gram/118 mL Enema 118 ml OK DAILY PRN (Reason: constipation) RF: 0 docusate sodium 100 mg Capsule 100 mg PO BID RF: 0 lisinopril 5 mg Tablet 5 mg PO DAILY RF: 0 simethicone 80 mg Tablet 80 mg PO TID PRN (Reason: Gi Upset) RF: 0 Combivent Respimat 20-100 mcg/actuation Mist 1 puff INHALATION QID PRN (Reason: Shortness Of Breath) RF: 0 Changed pantoprazole [Protonix] 40 mg Tablet,Delayed Release (Dr/Ec) 40 mg PO BID Qty: 0 RF: 0 furosemide [Lasix] 20 mg Tablet 40 mg PO BID Qty: 0 RF: 0 pregabalin 75 mg Capsule 100 mg PO BID Qty: 0 RF: 0 Discontinued citalopram [Celexa] 20 mg tablet 10 mg PO QAM RF: 0 enoxaparin [Lovenox] 40 mg/0.4 mL Syringe 40 mg SUBCUT Q12H RF: 0 daptomycin 500 mg Recon Soln 900 mg IV DAILY RF: 0 Discharge Orders: Discharge Order (Routine); Ordered 11/08/20 Ordered By: Toi Arreaga Admission Data Admit Date/Time: 10/13/20 13:30 Attending Provider: Toi Arreaga Admit Provider: Dwayne Aguirre Primary Care Provider: [facility] Other Providers: Vivian Alcazar ; Dada Dhaliwal ; Dwayne Aguirre ; Francis Pratt ; Lynn Ferrera ; Andre Tobar ; Patricia Wren ; Farnaz Edwards ; Tesha Rueda ; Willow Ceja ; Abdoul Pinedo ; Melinda Porter ; Luke Garg I. ; Raheem Yeager II ; Elida Metz ; Ismale Valdez ; Kat [place] Rapids[place] Other Interventions: Discharge Summary Assessment (RN) Last Done: 11/08/20 12:35
== END 2020-11-08 18:08 | disposition hospice, inpatient (51) | DRG 177 ==
LOC: ED 09:47 → SUATTDRO 13:30 → 2E 13:30 → 2W 10-19 16:27 → 2S 10-25 04:26 → 2N 10-29 17:22